=== PATIENT | female | born 1970 | race Caucasian/White ===

== ENCOUNTER 2017-08-28 21:20 | Emergency (ER) | payer MEDICARE, MEDICAID, SELFPAY ==
--- NOTE | 2017-08-28 21:20 | DT_ITS ---
This patient was seen during an EMR downtime August 24, 2017 - August 31, 2017. This patient may have a combination of paper and electronic documentation or all paper documentation. All documentation is viewable within the e-chart portion of [facility] for each patient visit.
--- NOTE | 2017-08-28 23:55 | RAD_ITS ---
STUDY: X-RAY - LUMBAR SPINE REASON FOR EXAM: Female, 46 years old. FELL 2 DAYS AGO C/O LBP T COCCYX PAIN TECHNIQUE: 4 view(s) of the lumbar spine were obtained. COMPARISON: None FINDINGS: There is straightening of the normal lumbar lordosis. There is a dextroscoliosis of the lumbar spine. There is a normal alignment of the vertebrae. There is multilevel endplate spondylosis of the lumbar vertebrae. There is multi-level degenerative disc disease with multi-level disc space narrowing. The soft tissue structures are unremarkable. RAD/Lumbar Spine 2 or 3 Views IMPRESSION: Degenerative changes of the spine, as detailed above. Electronically Signed: Brandin Green MD at 1:07 EDT Tel , Service support ,
--- NOTE | 2017-08-28 23:55 | RAD_ITS ---
STUDY: X-RAY - SACRUM/COCCYX REASON FOR EXAM: Female, 46 years old. FELL 2 DAYS AGO C/O LBP T COCCYX PAIN TECHNIQUE: 3 view(s) of the sacrum and coccyx were obtained. COMPARISON: None. FINDINGS: There is degenerative arthrosis of the bilateral sacroiliac joints. Normal visualized sacral ala and fused sacral bodies. There is an anterior angulation of the coccygeal segments. Normal coccygeal segments. The presacral soft tissue structures are unremarkable. RAD/Sacrum-Coccyx min 2 Views IMPRESSION: There is degenerative arthrosis of the bilateral sacroiliac joints. There is an anterior angulation of the coccygeal segments Electronically Signed: Brandin Green MD at 1:29 EDT Tel , Service support ,
== END 2017-08-29 02:00 | disposition home or self-care (01) ==
PROVIDERS: Emergency Provider Emergency Medicine; Family Provider Internal Medicine; PCP Internal Medicine
DX: S39.012A Strain of muscle, fascia and tendon of lower back, initial encounter (principal); W19.XXXA Unspecified fall, initial encounter; Y93.9 Activity, unspecified; Y92.838 Other recreation area as the place of occurrence of the external cause; E11.40 Type 2 diabetes mellitus with diabetic neuropathy, unspecified; M79.7 Fibromyalgia; Z79.84 Long term (current) use of oral hypoglycemic drugs; Z79.899 Other long term (current) drug therapy
CPT/HCPCS: 72100; 72220; 99282

== ENCOUNTER → 2017-09-02 12:45 | Outpatient (CLI) | payer MEDICARE, MEDICAID, SELFPAY ==
--- NOTE | 2017-09-02 13:40 | RAD_ITS ---
STUDY: X-RAY - SOFT TISSUE NECK REASON FOR EXAM: Female, 46 years old. Cough. Sleep apnea. TECHNIQUE: AP and lateral view(s) of the neck were obtained. COMPARISON: None. FINDINGS: The airway measures 8.4 mm from the posterior base of the tongue to the anterior prevertebral soft tissues at the C3 level. Normal epiglottis. Normal visualized subglottic tracheal air column. Normal prevertebral soft tissue structures. There are degenerative changes of the cervical spine with cervical spondylosis. The soft tissue structures are unremarkable. RAD/Neck for Soft Tissue IMPRESSION: The airway measures 8.4 mm from the posterior base of the tongue to the anterior prevertebral soft tissue at the C3 level. Electronically Signed: Jose Anderson MD at 12:31 EDT Tel [phone], Service support ,
== END ==
PROVIDERS: Family Provider Internal Medicine; PCP Internal Medicine; Visit Provider Otolaryngology Otolaryngology/Facial Plastic Surgery
DX: R05 Cough (principal); G47.33 Obstructive sleep apnea (adult) (pediatric)
CPT/HCPCS: 70360

== ENCOUNTER → 2017-10-09 08:42 | Outpatient (CLI) | payer MEDICARE, SELFPAY ==
--- NOTE | 2017-10-09 08:48 | RAD_ITS ---
STUDY: X-RAY - ESOPHAGUS (BARIUM SWALLOW) WITH FLUOROSCOPY REASON FOR EXAM: Female, 47 years old. Choking on food. TECHNIQUE: 12 view(s) of the esophagus were obtained following swallowing of barium. FLUOROSCOPY TIME (if supplied): (0:25) minutes/seconds COMPARISON: None. FINDINGS: There is no demonstrated esophageal foreign body. There is no demonstrated stricture or mucosal abnormality. Normal gastroesophageal junction, without a demonstrated hiatal hernia. The patient ingested a 12 mm tablet of barium without any difficulty. Normal visualized aortic arch and descending thoracic aorta. Normal visualized pulmonary parenchyma. Normal visualized osseous structures of the thorax. RAD/Esophagus Only IMPRESSION: Normal plain film x-ray examination (barium swallow) of the esophagus. Electronically Signed: Jose Anderson MD at 9:48 EDT Tel [phone], Service support ,
== END ==
LOC: RAD 08:43
PROVIDERS: Family Provider Internal Medicine; PCP Internal Medicine; Visit Provider Otolaryngology Otolaryngology/Facial Plastic Surgery
DX: R13.10 Dysphagia, unspecified (principal); K21.9 Gastro-esophageal reflux disease without esophagitis
CPT/HCPCS: 74220

== ENCOUNTER 2018-01-12 10:30 | Outpatient (RCR) | payer MEDICARE, MEDICAID, SELFPAY ==
--- NOTE | 2017-11-04 19:01 | HP.PTEVAL_ITS ---
Patient's Visit Information DESHAWN TELLO is a 47 year old F referred to Physical Therapy by PRIYANK HENNESSY with a diagnosis of gait instability d/t neuroapthy. Date of Evaluation: 11/04/17 Physical Therapist: Rowena Pedro - Visit Plan Frequency: 2x /Week Duration: 6 Weeks Plan: 2-3X/ week for 4-6 weeks for AT for core and hip strengthening and ankle strength with gait training, with HEP - Subjective Subjective: Pt has been having a lot of problems with her neuropathy. She has a cane for her balance. Sometimes she falls back into the chair. Pt has FM, DDD, neuropathy, back issues. The Dr wants her to get more exercise in and to learn from PT so that she can keep doing PT. She falls alot. This year about 3 -4 times and tries to always have her cane. She feels that it does help. Sometimes she gets dizzy if she stands up too fast or does not eat right. She does have sparatic vertigo but not had it for awhile. Stairs: Worst subject.... she goes up fw and down BW. SHe tends to lose her L shoe all the time as her neuropathy is almost up to her knee. - Pain general pain Pain Intensity (Out of 10): 7 neck and shoulder pain Pain Intensity (Out of 10): 7 - Objective Gait: walks with a straight cane and WBOS with forefoot abd B. LE MMT: Hip flex B 4/5, B knee ext 4/5, B knee flex 4-/5, B hip abd 3+/5, 3/4 Normal ROM bridge. Pt is able to heel and toe raise with UE support but decreased DF ROM. FGA: 16 - Balance Scores Functional Gait Assessment Score: 16 % Disability: 46.6700 - Goals Goal 1:: I HEP Goal Time Frame: 4-6 Weeks Goal 2:: Increase hip strength to 4+/5 hip abd, hip flex and 4/5 hip extension Goal Time Frame: 4-6 Weeks Goal 3:: Increase FGA by 4 points to 20 to decrease fall risk. Goal Time Frame: 4-6 Weeks Goal 4:: Be able to go up and down stairs with 2 handrails ascending and descending normally and reciprically Goal Time Frame: 4-6 Weeks - Rehabilitation Potential Rehabilitation Potential: Good - Anticipated Interventions Patient/Client Instruction: Educate patient on: Plan of Care For the Purpose of:: To decrease pain, To improve nutrient delivery to tissue, To improve muscle performance and motor function, To improve ability to perform ADL's, To increase tolerance to activity/condition/position, To improve performance and independence with ADL's, To decrease level of supervision to perform tasks, To improve ability of physical actions for home/community/work/ leisure, To improve gait and locomotor functions, To improve health of tissue, To increase flexibility/ROM, To improve balance, To improve safety with gait, To assume or resume ADL's Therapeutic Exercise to Include: Strength training, Balance training, Gait and locomotor training, In an aquatic setting, Active ROM, Dynamic Lumbar Stabilization For the Purpose of:: To decrease pain, To increase ROM, To improve nutrient delivery to tissue, To improve muscle performance and motor function, To improve ability to perform ADL's, To increase tolerance to activity/condition/ position, To improve performance and independence with ADL's, To improve ability of physical actions for home/community/work/leisure, To improve gait and locomotor functions, To improve balance, To improve safety with gait Functional Training to Include: Gait training For the Purpose of:: To improve gait and locomotor functions, To improve safety with gait Thank you for the opportunity to evaluate your patient. For Medicare and Medicare HMO plans, please review the plan of care and approve it. It will need to be FAXED BACK to us at [phone] for Medicare purposes. Please let me know if there are questions or concerns regarding this plan of care. Physician Signature: Date:
--- NOTE | 2017-12-16 10:36 | HP.PTREVAL ---
PRIYANK HENNESSY, It has been my pleasure to treat DESHAWN TELLO over the last 6 visits for gait instability d/t neuroapthy. Please see the progress note below for an update on the physical therapy plan of care! Subjective: Pt reports that she missed a lot of time due to menstration and toe nail coming off and family issues. At this point in time pt knows that she needs put PT ahead of everyone else and say no more to others because she is bad off. Objective/Function: LE MMT:Hip flex R 4-/5 and L hip flex 4/5, Knee ext 4/5B, Knee flex B 4/5, Hip abd B 4-/5, Bridge 3/5 normal ROM bridge. Able to heel and toe raise with 1/2 normal rom. Gait: Walk with shorter stride. Walks with [place] and walks with a straight cane and did catch the cane on the ground with walking. FGA: 16 Plan Plan: 2X/ week for an additional 4-6 weeks for AT for core and hip strengthening and ankle strength with gait training, with HEP Goals Goal 1:: I HEP Goal Time Frame: 4-6 Weeks Goal 2:: Increase hip strength to 4+/5 hip abd, hip flex and 4/5 hip extension Goal Time Frame: 4-6 Weeks Goal 3:: Increase FGA by 4 points to 20 to decrease fall risk. Goal Time Frame: 4-6 Weeks Goal 4:: Be able to go up and down stairs with 2 handrails ascending and descending normally and reciprically Goal Time Frame: 4-6 Weeks Anticipated Interventions Patient/Client Instruction: Educate patient on: Plan of Care For the Purpose of:: To decrease pain, To improve nutrient delivery to tissue, To improve muscle performance and motor function, To improve ability to perform ADL's, To increase tolerance to activity/condition/position, To improve performance and independence with ADL's, To decrease level of supervision to perform tasks, To improve ability of physical actions for home/community/work/leisure, To improve gait and locomotor functions, To improve health of tissue, To increase flexibility/ROM, To improve balance, To improve safety with gait, To assume or resume ADL's Therapeutic Exercise to Include: Strength training, Balance training, Gait and locomotor training, In an aquatic setting, Active ROM, Dynamic Lumbar Stabilization For the Purpose of:: To decrease pain, To increase ROM, To improve nutrient delivery to tissue, To improve muscle performance and motor function, To improve ability to perform ADL's, To increase tolerance to activity/condition/position, To improve performance and independence with ADL's, To improve ability of physical actions for home/community/work/leisure, To improve gait and locomotor functions, To improve balance, To improve safety with gait Functional Training to Include: Gait training For the Purpose of:: To improve gait and locomotor functions, To improve safety with gait Please do not hesitate to contact me at [phone] by phone or if you have questions or concerns regarding this new plan of care! Sincerely, Rowena Pedro
--- NOTE | 2018-03-31 17:38 | HP.PT.NRP ---
HP - Discharge Summary (1) - Patient Information DESHAWN TELLO was seen in my office for initial evaluation on 11/04/17. The following Plan of Care was established for this patient: Initial Frequency: 2x /Week Initial Duration: 6 Weeks - Anticipated Interventions Patient/Client Instruction: Educate patient on: Plan of Care For the Purpose of:: To decrease pain, To improve nutrient delivery to tissue, To improve muscle performance and motor function, To improve ability to perform ADL's, To increase tolerance to activity/condition/position, To improve performance and independence with ADL's, To decrease level of supervision to perform tasks, To improve ability of physical actions for home/community/work/leisure, To improve gait and locomotor functions, To improve health of tissue, To increase flexibility/ROM, To improve balance, To improve safety with gait, To assume or resume ADL's Therapeutic Exercise to Include: Strength training, Balance training, Gait and locomotor training, In an aquatic setting, Active ROM, Dynamic Lumbar Stabilization For the Purpose of:: To decrease pain, To increase ROM, To improve nutrient delivery to tissue, To improve muscle performance and motor function, To improve ability to perform ADL's, To increase tolerance to activity/condition/position, To improve performance and independence with ADL's, To improve ability of physical actions for home/community/work/leisure, To improve gait and locomotor functions, To improve balance, To improve safety with gait Functional Training to Include: Gait training For the Purpose of:: To improve gait and locomotor functions, To improve safety with gait This patient was last seen in our office 01/12/18. Pertinent comments regarding their Physical therapy will appear below: Pt did not re-schedule after he cancelled and no-showed for an appointment and will be discharged from our care at this time. DC PT. At this point I will be discontinuing this patient from physical therapy. I would be happy to see this patient again in the future if found appropriate by the physician. Thank you! Rowena Pedro, MPT
== END 2018-01-12 19:00 | disposition home or self-care (01) ==
LOC: PT 10:30
PROVIDERS: Family Provider Internal Medicine; PCP Internal Medicine
DX: R26.89 Other abnormalities of gait and mobility (principal)
CPT/HCPCS: 97014; 97113; 97162; 97530; G0283

== ENCOUNTER 2022-07-24 10:01 | Outpatient (RCR) | payer MEDICARE, MEDICAID, SELFPAY ==
[2022-07-24 10:48] VITALS: BP 146/99; PULSE 97; RESP 18; TEMP 36.4; BMI 39.4
--- NOTE | 2022-07-24 12:25 | PCM.WC.HP ---
History of Present Illness Date of Service: 07/24/22 Chief Complaint: Recurrent Left Toe Ulceration History of Wound: Ms. Guidry is a 51 yo referred to the wound center by her supervisor wet pour due to recurrent left toe ulcers. Current area of concern is her left second toe. Has had recurrent ulcerations for many years and has been seeing her supervisor wet pour closely. History of diabetic neuropathy, severe. Sometimes wears postop shoes but admits that she alternates 1 postop shoe between both feet. Recommendation by her supervisor wet pour was for surgery but, she states that she was not open to this. She feels well otherwise. [facility] Medical History (Updated 07/24/22 @ 12:[address] Cliff Nguyen MD) Callus of toe Foot deformity Neuropathy of both feet Home Medications duloxetine 60 mg capsule,delayed release 60 mg PO DAILY 01/10/15 [History Last Taken Unknown] calcium phosphate,dibasic 77 mg-vitamin D3 400 unit tablet tab PO 07/24/22 [History Last Taken Unknown] gabapentin 800 mg tablet 800 mg PO BID 07/24/22 [History Last Taken Unknown] ibuprofen 400 mg tablet 800 mg PO Q12H PRN PRN Headache 07/24/22 [History Last Taken Unknown] iron 50 mg iron tablet tab PO 07/24/22 [History Last Taken Unknown] magnesium 250 mg tablet 250 mg PO DAILY 07/24/22 [History Last Taken Unknown] metformin 500 mg tablet 1,000 mg PO BID 07/24/22 [History Last Taken Unknown] Allergy/AdvReac Type Severity Reaction Status Date / Time povidone-iodine Allergy Hives Verified 06/26/14 13:06 [From Betadine] soap [From Betadine] Allergy Hives Verified 06/26/14 13:06 Social History Smoking Status: Never smoker ROS Constitutional Constitutional: Denies fatigue, fever(s), frequent falls, increased appetite, lethargy or malaise Eyes Eyes: Denies change in eye color, change in vision, discharge from eye(s), double vision, dry eyes, excessive blinking or exophthalmos ENT HEENT: Denies dysphagia, ear discharge, ear pain, foreign body in nose, halitosis, hearing loss or hoarseness Cardiovascular Cardiovascular: Denies diaphoresis, dizziness, dyspnea at rest, dyspnea on exertion, edema or erythema on extremities Respiratory/Chest Respiratory/Chest: Denies difficulty clearing secretions, dry cough, dyspnea on exertion, excessive phlegm production, hemoptysis or hoarseness Gastrointestinal Gastrointestinal: Denies abdominal pain, belching, chewing difficulty, dry heaves, excessive flatus, vomiting or weight changes Genitourinary Genitourinary: Denies abdominal discomfort, difficulty urinating, flank pain or itching Musculoskeletal Musculoskeletal: Denies atrophy, extremity pain, loss of height or muscle weakness Integumentary Integumentary: Denies bleeding lesions, change in hair, changing lesions, furuncle, hirsutism, jaundice, non-healing lesions or skin pain Neurologic Neurologic: Denies behavior changes, burning sensations, disequilibrium, dizziness, focal weakness, frequent falls, lack of coordination, loss of vision or memory loss Psychiatric Psychiatric: Denies auditory hallucinations, behavioral changes, change in appetite, confusion, hallucinations, memory loss, paranoia, tactile hallucinations or visual hallucinations Endocrine Endocrinology: Denies change in body appearance, cold intolerance, deepening of the voice, excessive sweating, flushing or heat intolerance Allergic/Immunologic Allergic/Immunologic: Denies itchy eyes, lip swelling, rhinitis, throat swelling, tongue swelling or wheezing Vital Signs Vital Signs Vital Signs: 07/24/22 10:48 Temperature 97.5 F L Temperature Source Temporal Pulse Rate 97 Respiratory Rate 18 Blood Pressure 146/99 H Blood Pressure Mean 114 Blood Pressure Source Manual Blood Pressure Position Semi-Fowlers Blood Pressure Location Left Arm Weight Weight: 282 lb 12.465 oz Body Mass Index (BMI) 39.4 Physical Exam Const alert, oriented x3 and no apparent distress General Appearance: cooperative, comfortable and well kempt HEENT normocephalic and head/scalp atraumatic Head and Scalp: normal to inspection Eyes EOMs intact bilaterally General Eye: normal appearance of both eyes Neck full ROM and supple General: normal visual inspection Resp normal respiratory effort Effort and Inspection: able to speak in complete sentences Extremity full ROM and no pedal edema Neuro oriented x3, CN's II-XII intact bilaterally, moves all extremities and no focal motor deficits Psych mental status grossly normal, thought process normal, cooperative and affect normal Debridement Note Debridement Note Post-Debridement Measurements and Additional Note: Post-Debridement Measurements/Treatment CHAMP - Nurse 1 - General Ulcer Assessment Start: 07/24/22 10:40 Freq: Status: Active Protocol: WC.LOWEXT Activity Type Activity Date Activity User E-sign Co-sign Detail Recorded Client Recorded Date Recorded By Document 07/24/22 10:48 RB [id number] 07/24/22 10:57 RB 07/24/22 10:48 WC - Today's Visit Information Type of service Initial Visit Arrival Mode Ambulatory Transfer Assistance None Patient Identification Verified (Name & Yes ) Patient Requires Transmission-Based No Precautions Height and Weight Height 5 ft 11 in Weight 282 lb 12.465 oz Weight in Pounds 282.8 lbs Body Mass Index (BMI) 39.4 BMI Classification Obese BSA - Kev 2.44 Vital Signs Temperature (97.8 F-99.1 F) 97.5 F L Temperature Source Temporal Pulse Rate (60-100) 97 Pulse Location Monitor Respiratory Rate (12-18) 18 Respiratory rate source Observation Blood Pressure (90/60-120/80) 146/99 H Blood Pressure Mean 114 Source Manual Position Semi-Fowlers Blood Pressure Location Left Arm History Since Last Visit- (Skip if this is Patient's initial visit) Have you changed medications since your No last visit? Any new allergies or adverse reactions No Had a fall/change in ADL's that may No increase risk of falls Signs or symptoms of abuse and/or No neglect since last visit Have you been in the hospital since your No last visit? Has dressing in place as prescribed Yes Has compression in place as prescribed No Has offloadiing in place as prescribed No Experienced any changes in pain level or No management Pain Scale: 0-10 Numeric Is Patient Pain Free? No bilat feet -Description Aching -Intensity 8 -Duration (hours) Chronic -Pain Behavior Restlessness -Pain Aggravating Factors Exercise/ Activity -Alleviating Factors/Interventions Medication -Effectiveness of Alleviating Factor/ Minimally Intervention effective Lower Extremity Assessment/ Foot Assessment/ Toe Nail Assessment Right -Posterior Tibial Palpable Yes -Dorsalis Pedis Palpable Yes -Extremity Color Normal -Hair Growth on Legs Yes -Hair Growth on Toes No -Temperature of Extremity Cool -Capillary Refill Less than 3 Seconds -Dependent Rubor No -Blanched when Elevated No -Lipodermatosclerosis No -Charcot Joint Yes -Prior Amputation No -Thick Yes -Discolored Yes -Deformed Yes -Improper Length & Hygeine Yes Left -Posterior Tibial Palpable Yes -Dorsalis Pedis Palpable Yes -Extremity Color Normal -Hair Growth on Legs Yes -Hair Growth on Toes No -Temperature of Extremity Cool -Capillary Refill Less than 3 Seconds -Dependent Rubor No -Blanched when Elevated No -Lipodermatosclerosis No -Other Deformity No -Prior Foot Ulcer No -Charcot Joint Yes -Prior Amputation No -Thick Yes -Discolored Yes -Deformed Yes -Improper Length & Hygeine Yes Neuropathy Assessment Feet - Top Side and Bottom <Entered> (a) Communication Assessment Preferred language Vietnamese Auricular Acupuncturist Required No Able to Read Yes Able to Write Yes Communication Tools None Caregiver Communication Skills No Impairment Impairment Right Hearing Abillity Normal Left Hearing Abillity Normal Visual Assistive Devices Glasses Teaching Assessment Preferences Verbal,Written, Demonstration Readiness To Learn Good Willingness to Engage in Self Management Med Activies Readiness to Engage in Self Management Med Activities Anxiety Level Calm Cooperation Cooperative Perception Coherent Interest in Health Problem Asks Questions Education Importance Acknowledges Need Does Patient Smoke tobacco or other No substances Smoking Status Never smoker Functional Assessment Recent Decline in Ability to Perform Denies Any Declines Assistive Device With Patient No Culture/Rastafari/Child Development Consultant Cultural/Rastafari Needs that may affect No Treatment Plan Would you allow our hospital clerical methods analyst to No meet you for the purpose of spiritual/ emotional support? Child Development Consultant to contact place of mormon No (a) 1 - _ throughtout WC - Nurse 1 - General Ulcer Measurement Start: 07/24/22 10:40 Freq: Status: Active Protocol: Activity Type Activity Date Activity User E-sign Co-sign Detail Recorded Client Recorded Date Recorded By Document 07/24/22 10:48 [id number] 07/24/22 10:57 RB 07/24/22 10:48 Wound Center Nurse 1 4. L foot second toe -Combined with other wound No -Current Size (cm) - Length 0.1 -Current Size (cm) - Width 0.1 -Current Size (cm) - Depth 0.1 -Total Square Cm 0.01 -Photo Taken Yes -Tunneling No -Undermining/Tunneling No -Circular Undermining No -Exudate Amt None Present -Wound Margin Distinct, Outline Attached -Granulation Amt Small (1-33%) -Granulation Quality Starks -Slough/Fibrin Yes -Necrosis Amt Large (67-100%) -Necrotic Tissue Type Adherent Slough -Structure Exposed N/A -Texture (Jud-wound Skin Appearance) Callus -Moisture (Jud-wound Skin Appearance) Assessed -Color (Jud-wound Skin Appearance) Assessed -Temperature (Jud-wound Skin No Abnormality Appearance) (Pt Warm) -Tenderness on Palpation (Jud-wound No Skin Appearance) -Ulcer Cleansing Wound Cleanser -Foul Odor after Cleansing No -Anesthetic Used 5% Lidocaine Gel Lower Limb Edema Present Yes Right Calf (cm) 39 Right Ankle (cm) 24.5 Left Calf (cm) 39 Left Ankle (cm) 23.5 - Nurse 2 - General Ulcer CM Notes Start: 07/24/22 10:40 Freq: Status: Active Protocol: Activity Type Activity Date Activity User E-sign Co-sign Detail Recorded Client Recorded Date Recorded By Document 07/24/22 11:14 MW [id number] 07/24/22 11:25 MW 07/24/22 11:14 Wound Center Nurse 2 4. L foot second toe -Time 11:16 -Correct Patient Yes -Correct Side, Site, Position Yes -Correct Procedure Yes -Procedure Performed No Pain Scale: 0-10 Numeric Is Patient Pain Free? Yes - Nurse 3 - General Ulcer D/C NN Start: 07/24/22 10:40 Freq: Status: Active Protocol: Activity Type Activity Date Activity User E-sign Co-sign Detail Recorded Client Recorded Date Recorded By Document 07/24/22 11:26 MW [id number] 07/24/22 11:27 MW 07/24/22 11:26 Wound Care Center Nurse 3 4. L foot second toe -Other Covering aperture pad Treatment Response Procedure Tolerated Well Pain Scale: 0-10 Numeric Is Patient Pain Free? Yes Teaching: Wound Center Discharge Instructions -Person Taught Patient -Teaching Method Demonstration -Response to teaching Verbalize understanding WC - Visit Discharge Discharge Condition Stable Ambulatory Status Cane Accompanied by self Medication Reconcilliation completed & No provided to patient/care provider Clinical Summary of Care Provided Yes Notes: follow up with Dr. Cosme Charges/Coding Visit Charges Office Visits / Consults: [id number] OV L3 New Assessment/Plan Assessment/Plan (1) Neuropathy of both feet: CODE(S): G57.93 - Unspecified mononeuropathy of bilateral lower limbs (2) Foot deformity: CODE(S): M21.969 - Unspecified acquired deformity of unspecified lower leg (3) Callus of toe: CODE(S): L84 - Corns and callosities PLAN: Plan History of recurrent foot ulcerations. Has been following up closely with her supervisor wet pour. Current area of concern is her left second toe. Partial amputation was recommended however she declined. She states that she did not understand fully but on explanation today, she states that she is open to this measure. I believe this will be the most definitive to avoid recurrence. Repeated pressure due to foot and toe deformity and neuropathy will lead to recurrent ulcerations with risk for infection, osteomyelitis and possible foot amputation. At this time, there is no open wound/ulcer so she was advised to follow-up with her supervisor wet pour, she voiced understanding. In the meantime, an aperture foam was put in place to help with offloading, she was advised that she could do this daily as well. Continue other chronic care/management per podiatry. Discharge from the wound clinic. This note was generated with [employer] dictation software. It may contain incorrect words, spelling, and punctuation that were not noted in checking the note before signing.
== END 2022-08-20 23:59 | disposition home or self-care (01) ==
LOC: WC 10:01
PROVIDERS: PCP Internal Medicine; Referring Provider Podiatrist Foot & Ankle Surgery; Visit Provider Internal Medicine
DX: L97.529 Non-pressure chronic ulcer of other part of left foot with unspecified severity (principal); E11.40 Type 2 diabetes mellitus with diabetic neuropathy, unspecified; R60.0 Localized edema; M14.60 Charcot's joint, unspecified site; L84 Corns and callosities; M21.969 Unspecified acquired deformity of unspecified lower leg; G57.93 Unspecified mononeuropathy of bilateral lower limbs
CPT/HCPCS: 99203; G0463

== ENCOUNTER → 2023-04-14 | Outpatient (CLI) | payer MEDICARE, MEDICAID, SELFPAY ==
--- NOTE | 2023-04-14 11:37 | RAD_ITS ---
STUDY: X-RAY - LEFT SHOULDER REASON FOR EXAM: Female, 52 years old. Left shoulder pain following a recent fall. TECHNIQUE: 4 view(s) of the shoulder. COMPARISON: None. FINDINGS: There is mild degenerative arthrosis of the glenohumeral articulation. Normal acromioclavicular joint. Degenerative spurring along the undersurface of the acromion. Normal humeral head and visualized proximal humerus. The soft tissue structures are unremarkable. Normal visualized pulmonary apex. RAD/Shoulder min 2 Views IMPRESSION: Mild degree of osteoarthritis. Degenerative spur is seen along the undersurface of the acromium. Electronically Signed: Jose Anderson MD at 11:59 EST ,
== END | disposition home or self-care (01) ==
LOC: MTRAD 11:37
PROVIDERS: PCP Internal Medicine; Referring Provider Physician Assistant; Visit Provider Physician Assistant
DX: M25.512 Pain in left shoulder (principal)
CPT/HCPCS: 73030

== ENCOUNTER 2024-04-15 07:45 | Day surgery (SDC) | payer MEDICARE, MEDICAID, SELFPAY ==
--- NOTE | 2024-03-30 12:48 | PCM.HP.BLA ---
History and Physical Date of Admission: 04/15/24 HPI: The patient is a 53 year old female presenting for pre-operative visit. She is scheduled for TLH, BSO, cystoscopy, for menorrhagia, dysmenorrhea, adenomyosis on 04/15/24. Procedure discussed along with risks, benefits and complications. Other alternatives discussed for management. Consent form signed? Yes. PAST MEDICAL HISTORY PAST MEDICAL HISTORY Diagnosis Date ? 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 Palencia will check MRA in 2012 ? Anxiety and depression ? Benign paroxysmal positional vertigo not an issue since 2006 ? Cataract ? Chronic cholecystitis 2007 ? Diabetes ([facility]) 2009 ? Dizziness and giddiness ? Elevated AST (SGOT) 10/16/2011 ? Esophageal reflux ? Excessive or frequent menstruation 06/19/2008 ? Family history of cardiac disorder in mother 12/23/2013 ? Fibromyalgia ? Hallux valgus (acquired) 01/12/2006 ? Hx-TIA (transient ischemic attack) January 2012 [place] ? Insomnia ? Mixed hyperlipidemia 03/19/2006 Resolved ? Morbid obesity with BMI of 40.0-44.9, adult ([facility]) 09/12/2014 ? Myalgia and myositis, unspecified ? Neuropathy Dr. Schmidt managing ? WILTON (obstructive sleep apnea) non compliant with CPAP ? Other enthesopathy of ankle and tarsus 01/12/2006 ? Other osteoporosis ? Restless leg syndrome 08/16/2015 Dr. Schmidt managing ? Retinal detachment 08/17/2015 ? Stage 3 chronic kidney disease ([facility]) 07/15/2022 ? Ulnar neuropathy of right upper extremity PAST SURGICAL HISTORY PAST SURGICAL HISTORY Procedure Laterality Date ? CATARACT EXTRACTION HX Right 05/2015 ? COLONOSCOPY 09/15/2022 ? COLONOSCOPY FLX DX W/COLLJ SPEC WHEN PFRMD 08/22/2015 Colonoscopy ([facility]) ? COLONOSCOPY SCREENING 2021 ? EGD 09/15/2022 ? EGD W/O [facility] SPEC VARICIES INJ 2021 ? ENDOMETRIAL BX W/WO ENDOCERVIX BX W/O DILAT SPX 06/01/2008 Irregular Menses, Menorrhagia and Thickened Lining ? ESOPHAGOGASTRODUODENOSCOPY TRANSORAL DIAGNOSTIC 08/22/2015 EGD ([facility]) ? INCISE FINGER TENDON SHEATH Right 07/09/2023 right middle and ring trigger release. ? INCISE FINGER TENDON SHEATH Right 07/09/2023 Right middle and ring trigger finger releases ? LAPAROSCOPY SURG CHOLECYSTECTOMY 08/19/2007 ? LIGATE FALLOPIAN TUBE at last csection ? NEUROPLASTY &/TRANSPOSITION ULNAR NERVE ELBOW Right 11/27/2023 Right elbow ulnar nerve decompression ? PAST SURGICAL HISTORY OF x 4 ? PAST SURGICAL HISTORY OF 2022 foot surgery, multiple bilat ? PAST SURGICAL HISTORY OF bilateral ankle fractures ? PAST SURGICAL HISTORY OF 06/30/2014 right 2nd toe arthroplasty with tenotomies 3rd, 4th, and 5th toe - [facility]- Dr. Conteh ? PAST SURGICAL HISTORY OF Right 04/2015 retinal tear ? PAST SURGICAL HISTORY OF Right right knee surgery ? TONSILLECTOMY & ADENOIDECTOMY <AGE 11 1975 CURRENT MEDICATIONS Current Outpatient Medications Medication Sig Dispense Refill ? ferrous sulfate (IRON ORAL) Take 300 mg by mouth. ? MULTIVITAMIN ORAL Take by mouth. ? doxycycline hyclate (VIBRAMYCIN) 100 mg capsule Take 1 capsule by mouth every 12 hours. ? fluticasone (FLONASE) 50 mcg/actuation nasal spray instill 2 spray into each nostril once daily Rinse mouth after use 48 mL 2 ? tiZANidine HCl (ZANAFLEX) 2 mg capsule Take 2 capsules by mouth every 8 hours as needed. 120 capsule 5 ? gabapentin (NEURONTIN) 800 mg tablet Take 1 tablet by mouth three times a day for 90 days. 90 tablet 2 ? sertraline (ZOLOFT) 50 mg tablet Take 1 tablet by mouth once daily. 90 tablet 3 ? cholecalciferol, Vitamin D3, (VITAMIN D3) 1,250 mcg (50,000 unit) cap capsule Take 1 capsule by mouth one time a week. 12 capsule 3 ? semaglutide (OZEMPIC) 2 mg/dose (8 mg/3 mL) pen injector Inject 2 mg subcutaneously one time a week. 4 Each 1 ? meloxicam (MOBIC) 15 mg tablet Take 1 tablet by mouth once daily. With food. 30 tablet 5 ? rosuvastatin (CRESTOR) 5 mg tablet Take 1 tablet by mouth once daily. 30 tablet 5 ? omeprazole (PRILOSEC) 40 mg capsule Take 1 capsule by mouth once daily. 30 capsule 5 ? Lancing Device (LANCING DEVICE WITH LANCETS) [facility] Check blood sugar once daily 1 Each 0 ? Lancets lancets Test blood sugar(s) once daily. Dx: E11.9. New onset type 2 diabetes Insulin: No 100 Each 11 No current facility-administered medications for this visit. ALLERGIES: Sulfa (Sulfonamide Antibiotics) PERSONAL HISTORY: SOCIAL HISTORY Social History Tobacco Use ? Smoking status: Never ? Smokeless tobacco: Never Vaping Use ? Vaping status: Never Used Substance Use Topics ? Alcohol use: Not Currently ? Drug use: No FAMILY HISTORY: FAMILY HISTORY FAMILY HISTORY Problem Relation Age of Onset ? Heart Mother ? other (fibroids) Mother ? Heart Father ? Arthritis Father ? Colon Cancer Father diagnosed at 74yo; has colostomy ? Alzheimer's Disease Father ? Psychiatry Maternal Grandmother Suicide ? Cancer Paternal Grandmother Breast ? Cancer Paternal Aunt Brain ? Cancer Paternal Aunt Uterine cancer REVIEW OF SYMPTOMS: GENERAL: denies fevers or chills ENDOCRINOLOGY: has not been on steroids Cardiology : denies palpitations or chest pain Respiratory: denies SOB or cough Hematology: denies history of prolonged bleeding or easy bruising or VTE Allergy: Denies history of personal or family history of allergy to anesthesia PHYSICAL EXAMINATION: VITALS: Blood pressure 108/68, weight 112.9 kg (249 lb), last menstrual period 03/11/2024. GENERAL: The patient is well nourished, well hydrated in no acute distress. , The patient is oriented to time, place, and person. NECK: Supple. No lynphadenopathy, normal thyroid, no thyromegaly. LUNGS: Clear to auscultation bilaterally. no wheezes, rhonchi or rales HEART: Regular rate and rhythm, Normal heart sounds, and No murmurs or gallops GENITALIA: Normal external genitalia, Urethral meatus normal, Bladder nontender, normal vagina and normal vaginal tone, normal cervix, normal uterus, size and consistency, normal adnexa without masses or tenderness, and perineum WNL IMPRESSION: menorrhagia with irreg cycle, adenomyosis, dysmenorrhea PLAN: The risks/benefits/alternatives and personal involved for the planned TLH/BSO with cystoscopy were reviewed with the patient. Her questions were answered to her satisfaction and she desires to proceed. Consent was signed. I reviewed with her postop instructions and expectations. Will need preop optimization w/ PCP stop ozempic 1 week preop I have reviewed and updated past medical and surgical history, medications and allergies Assessment & Plan Assessment/Plan (1) Menorrhagia with irregular cycle: (2) Adenomyosis: (3) Dysmenorrhea:
--- NOTE | 2024-04-07 12:00 | PAT.ANE_ITS ---
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 When Was Last Pacemaker Check QUESTION #4 FULL TEXT: You/Your Family Experience fever (hyperthermia) with Anesthesia Last Oral Intake Last Oral intake: Last Oral Intake NPO since Meds taken in AM with sips of water? 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 Female Yes 04/06/24 14:56 HX of Motion Sickness No 04/06/24 14:56 HX of N/V After Surgery No 04/06/24 14:56 Non-Smoker Yes 04/06/24 14:56 Duration of Surgery greater Yes 04/06/24 14:56 than 60 minutes Number of Risk Factors 3 04/06/24 14:56 PONV Score Moderate Risk 04/06/24 14:56 Height & Weight Height & Weight: Anesthesia: Height & Weight Height 5 ft 10 in 02/25/24 10:49 Respiratory Assessment Respiratory Assessment - ore crushing dust collector: Respiratory Tract Infection Hx - 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 Has anyone observed you stop breathing during sleep? STOP Results Positive 04/06/24 14:56 QUESTION #5 FULL TEXT : Do you snore loudly (louder than talking or can be heard through closed doors)? 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 Specify any problems Hx of Preganancy in last 3 No 04/06/24 14:56 Months Nurse Filling Out Transfusion DSCHRIBER 04/06/24 14:56 & Questions: Date: 04/06/24 04/06/24 14:56 Time: 14:57 04/06/24 14:56 Patient unable to answer at this time (ie. 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 crushing dust collector: /Reproductive Hx- ore crushing dust collector Hx Now No 04/06/24 14:56 Gestational Age (in weeks): EDC: Hx Hx Para Hx Section SAB No 04/06/24 14:56 [facility] Medical History (Updated 04/06/24 @ 15:24 by Serenity Santiago) Wears glasses Depression Anxiety Diabetes Bladder disease Arthritis Low iron High cholesterol Easy bruising Back pain TIA (transient ischemic attack) Vertigo Restless legs Dietary restriction History of IBS Gastric reflux Shortness of breath on exertion CPAP (continuous positive airway pressure) dependence Non-smoker Leg cramps History of pain when walking History of stress test Contusion of left shoulder Left shoulder strain Callus of toe Foot deformity Neuropathy of both feet Home Medications ?Medication ?Instructions ?Recorded ?Last Taken ?Type duloxetine 60 mg capsule,delayed 120 mg PO DAILY 01/10/15 Unknown History release gabapentin 800 mg tablet 800 mg PO TID NEUROPATHY 07/24/22 Unknown History iron 50 mg iron tablet 1 tab PO DAILY 07/24/22 Unknown History magnesium 250 mg tablet 250 mg PO DAILY 07/24/22 Unknown History calcium 500 mg (as 1 tab PO DAILY 04/06/24 Unknown History carbonate)-vitamin D3 3.125 mcg (125 unit) tablet fluticasone propionate 50 2 spray intranasal DAILY 04/06/24 Unknown History mcg/actuation nasal spray,suspension omeprazole 40 mg capsule,delayed 40 mg PO DAILY 04/06/24 Unknown History release semaglutide 2 mg/dose (8 mg/3 mL) 2 mg subcut CERDA 04/06/24 03/27/24 History subcutaneous pen injector (Ozempic) Allergy/AdvReac Type Severity Reaction Status Date / Time Sulfa (Sulfonamide Allergy Severe Hives Verified 04/06/24 14:51 Antibiotics) Surgical History (Updated 04/06/24 @ 15:05 by Serenity Santiago) History of esophagogastroduodenoscopy (EGD) Hx of colonoscopy Hx laparoscopic cholecystectomy History of Hx of toe surgery Hx of foot surgery Hx of toe surgery Hx of sinus surgery Hx of elbow surgery Social History Smoking Status: Never smoker Audit: Pertinent Findings Pertinent Findings Consult pertinent findings: Neuro care neurology visit 02/11/2012 history of TIA 02/04/2012 left-sided weakness stroke workup negative but found to have 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
--- NOTE | 2024-04-12 13:33 | EKG12_ITS ---
Test Reason : PREOP Blood Pressure : */* mmHG Vent. Rate : 71 BPM Atrial Rate : 71 BPM P-R Int : 120 ms QRS Dur : 72 ms QT Int : 414 ms P-R-T Axes : 4 37 38 degrees QTcB Int : 449 ms Normal sinus rhythm Low voltage QRS Borderline ECG When compared with ECG of 28-Dec-2013 06:56, No significant change was found Confirmed by SOM DAVIS, ANTONIO ([id number]), editor department CASIE MART ([id number]) on 04/18/2024 2:15:00 PM Referred By: Yanni Malone Confirmed By: ANTONIO KEARNS MD
--- NOTE | 2024-04-14 11:01 | PAT.ANE_ITS ---
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 When Was Last Pacemaker Check QUESTION #4 FULL TEXT: You/Your Family Experience fever (hyperthermia) with Anesthesia Last Oral Intake Last Oral intake: Last Oral Intake NPO since Meds taken in AM with sips of water? 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 Has anyone observed you stop breathing during sleep? STOP Results Positive 04/06/24 14:56 QUESTION #5 FULL TEXT : Do you snore loudly (louder than talking or can be heard through closed doors)? 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 Specify any problems Hx of Preganancy in last 3 No 04/06/24 14:56 Months Nurse Filling Out Transfusion DSCHRIBER 04/06/24 14:56 & Questions: Date: 04/06/24 04/06/24 14:56 Time: 14:57 04/06/24 14:56 Patient unable to answer at this time (ie. 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: /Reproductive Hx- sheet metal worker apprentice Hx Now No 04/06/24 14:56 Gestational Age (in weeks): EDC: Hx Hx Para Hx Section SAB No 04/06/24 14:56 Active Medications Active Medications: Current Medications Generic Name Dose Route Start Last Admin Trade Name Freq PRN Reason Stop Dose Admin Acetaminophen 1,000 mg 04/15/24 10:15 Acetaminophen 500 Mg Tablet PO 04/15/24 10:16 PREOP ONE Celecoxib 400 mg 04/15/24 10:15 Celecoxib 200 Mg Capsule PO 04/15/24 10:16 X1 ONE Enoxaparin Sodium 40 mg 04/15/24 10:15 Enoxaparin 40 Mg/0.4 Ml Syringe SC 04/15/24 10:16 X1 ONE Gabapentin 600 mg 04/15/24 10:15 Gabapentin 600 Mg Tablet PO 04/15/24 10:16 PREOP ONE Lactated Ringer's 1,000 mls @ 40 mls/hr 04/15/24 10:15 IV .Q25H LOVE Cefazolin Sodium 2 gm/ N/A 20 mls @ 400 mls/hr 04/15/24 10:15 IV 04/15/24 10:17 PREOP ONE Lactated Ringer's 1,000 mls @ 70 mls/hr 04/15/24 10:15 IV .[id number] [facility] Insulin Human Lispro 0 unit 04/15/24 10:15 Insulin Lispro 100 Unit/Ml Insuln.Pen SC 04/15/24 16:00 Q4H PRN PRN BG >/= 180, SEE PROTOCOL Protocol Ondansetron HCl 4 mg 04/15/24 10:15 Ondansetron 4 Mg/2 Ml Vial IV 04/15/24 10:16 X1 ONE Phenazopyridine HCl 190 mg 04/15/24 10:15 Phenazopyridine 95 Mg Tablet PO 04/15/24 10:16 X1 ONE Scopolamine HBr 1 patch 04/15/24 10:15 Scopolamine 1mg/72hr Patch TD 04/15/24 10:16 X1 ONE PFS Medical History (Updated 04/06/24 @ 15:24 by Serenity Santiago) Wears glasses Depression Anxiety Diabetes Bladder disease Arthritis Low iron High cholesterol Easy bruising Back pain TIA (transient ischemic attack) Vertigo Restless legs Dietary restriction History of IBS Gastric reflux Shortness of breath on exertion CPAP (continuous positive airway pressure) dependence Non-smoker Leg cramps History of pain when walking History of stress test Contusion of left shoulder Left shoulder strain Callus of toe Foot deformity Neuropathy of both feet Home Medications ?Medication ?Instructions ?Recorded ?Last Taken ?Type duloxetine 60 mg capsule,delayed 120 mg PO DAILY 01/10/15 Unknown History release gabapentin 800 mg tablet 800 mg PO TID NEUROPATHY 07/24/22 Unknown History iron 50 mg iron tablet 1 tab PO DAILY 07/24/22 Unknown History magnesium 250 mg tablet 250 mg PO DAILY 07/24/22 Unknown History calcium 500 mg (as 1 tab PO DAILY 04/06/24 Unknown History carbonate)-vitamin D3 3.125 mcg (125 unit) tablet fluticasone propionate 50 2 spray intranasal DAILY 04/06/24 Unknown History mcg/actuation nasal spray,suspension omeprazole 40 mg capsule,delayed 40 mg PO DAILY 04/06/24 Unknown History release semaglutide 2 mg/dose (8 mg/3 mL) 2 mg subcut CERDA 04/06/24 03/27/24 History subcutaneous pen injector (Ozempic) Allergy/AdvReac Type Severity Reaction Status Date / Time Sulfa (Sulfonamide Allergy Severe Hives Verified 04/06/24 14:51 Antibiotics) Surgical History (Updated 04/06/24 @ 15:05 by Serenity [email or web address]) History of esophagogastroduodenoscopy (EGD) Hx of colonoscopy Hx laparoscopic cholecystectomy History of Hx of toe surgery Hx of foot surgery Hx of toe surgery Hx of sinus surgery Hx of elbow surgery Social History Smoking Status: Never smoker Audit: Pertinent Findings HISTORY of Pertinent Findings History of Pertinent Findings: Consult Pertinent Findings Consult pertinent findings Neuro care neurology visit 04/07/24 12:02 02/11/2012 history of TIA left-sided weakness stroke workup negative but found to have 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 Normal sinus rhythm. Compared to EKG of December 28, 2013 no significant change was found. Recommendation Anesthesia Recommendation Anesthesia recommendation: OPTIMIZED for anesthesia
[2024-04-15] VITALS (14 sets, daily range): BP systolic 129–168; BP diastolic 85–102; PULSE 65–81; RESP 14–16; TEMP 36.1–36.4; O2SAT 92–99; BMI 36.3
--- NOTE | 2024-04-15 | HYST_PTH ---
PATIENT: DESHAWN TELLO LOC: [facility] [place] U#:[id number] AGE/SX: 53/F ROOM: RE04/15/[address]: Dr. Yanni Malone MD : [id number] BED: DIS: 04/15/2024 SPEC #: [id number] RECD: 04/15/24 13:49 STATUS: HEATH PEGUERO #: [id number] GENARO: 04/15/24 00:[address]: Yanni Malone DEPT: SURGICAL PATHOLOGY RECD BY: Diomedes Cao ENTERED: 04/15/24 13:49 SP TYPE: HYSTERECT OTHR DR: Dr. Flora Thrasher MD Tissues: Uterus, NOS Procedures: Surgery Specimen Level V HEADER OPERATION: Total laparoscopic hysterectomy with bilateral salpingectomy PRE-OP DIAGNOSIS: Menorrhagia with irregular cycle, adenomyosis, dysmenorrhea TISSUE SUBMITTED: Uterus, cervix, bilateral fallopian tubes MICROSCOPIC DIAGNOSIS Uterus, cervix, bilateral fallopian tubes, hysterectomy, bilateral salpingectomy: Cervix - Chronic inflammation and squamous metaplasia. Endometrium - Proliferative endometrium. Myometrium - Intramural leiomyomas (largest measuring 1cm in greatest dimension). - Diffuse adenomyosis. Bilateral fallopian tubes- No pathologic diagnosis. A paratubal cyst. 04/18/2024 MICROSCOPIC DESCRIPTION Slides are reviewed. GROSS DESCRIPTION Received in fixative is one container labeled with the patient's name and designated uterus, cervix, bilateral fallopian tubes. The specimen consists of a hysterectomy specimen consisting of uterus with cervix and dethatched bilateral fallopian tubes. The uterus with cervix weighs 169 gm and measures 12 x 8 x 5 cm. The serosal surface is wood glistening. The ectocervical mucosa is unremarkable. The external os is circular in contour. The endocervical canal measures 3.5 cm in length and the endocervical mucosa is wood glistening and unremarkable. The triangular endometrial cavity measures 6 cm in length and 4 cm in width. The endometrium is wood glistening without any mass lesions and measures 0.1 cm in thickness. Sections of the uterine wall reveal three nodular masses. Largest mass measures 1cm in greatest dimension. Uterine wall measures 3cm in thickness. Focal areas of punctate hemorrhage are also noted suspicious for adenomyosis. Fallopian tubes are not identified as right or left. One fallopian tube measures 4.5cm in length and 0.5cm in diameter. Fimbrial end is identified. Sections reveal unremarkable cut surfaces. Second fallopian tube measures 2.5cm in length and 0.5cm in diameter. Fimbrial end is identified. A paratubal cyst is also noted adjacent to the fallopian tube measuring 0.5cm in greatest dimension. A detached piece of fallopian tube is also present in the container measuring 1.5cm in length and 0.3cm in diameter. Sections reveal unremarkable cut surfaces. Social Media Analyst sections are submitted in ten cassettes as follows: 1 - anterior cervix, 2 - posterior cervix, 3 & 4 - anterior uterine wall, 5 & 6 - posterior uterine wall, 7- nodular masses, 8- one fallopian tube, 9- second fallopian tube and paratubal cyst, submitted in entirety, 10- detached piece of fallopian tube. SJ: 04/15/2024 TC:1 CPT: 83304
[2024-04-15 08:10] LABS: Internal QC Validated? YES +Cl - CLEAR BKGD; Pregnancy, Urine Negative Negative
[2024-04-15] MEDS: Magnesium 2 GM for ERAS IV (08:15)
[2024-04-15] MEDS: Phenazopyridine 95 MG Tablet 190 MG PO (08:46)
[2024-04-15] MEDS: Enoxaparin 40 MG/0.4 ML Syringe SC (08:47)
[2024-04-15] MEDS: Celecoxib 200 MG Capsule 400 MG PO (08:47)
[2024-04-15] MEDS: Lactated Ringers 1,000 ML 40 ML IV (08:47)
[2024-04-15] MEDS: Gabapentin 600 MG Tablet PO (08:47)
[2024-04-15] MEDS: Scopolamine 1mg/72hr Patch 1 PATCH TD (08:48)
[2024-04-15] MEDS: Acetaminophen 500 MG Tablet 1000 MG PO (08:48)
--- NOTE | 2024-04-15 08:52 | PRE.ANES_ITS ---
ASA Classification* ASA Classification ASA Classification: 3 Assessment & Plan Anesthesia* Anesthesia Assessment Anesthesia Assessment: Discussed sedation and/or anesthesia options, risks, benefits, and alternatives with patient/parents/legal guardian/POA. Questions invited. The patient/parents/legal guardian/POA seems to understand and agrees to proceed with anesthesia plan. Reviewed the physical assessment, medical history, allergy history and patient home medications list prior to surgery/procedure/anesthetic and documented any changes. Performed airway and anesthesia risk assessments. Anesthesia Type Anesthesia Type: General History Source History Obtained from:: Patient and Chart Anesthesia Focused Assessment* Temperature: 97.5 F Pulse Rate: 75 Blood Pressure: 129/86 Respiratory Rate: 14 Pulse Ox: 99 Oxygen Delivery Method: Room Air Airway Assessment Mouth opens: >3 cm Mallampati Score: II Teeth Condition: Dentures (Edentulous) Neck Range of motion (ROM): Full ROM Focused Labs Anesthesia Preop lab: CBC WBC 8.9 K/mm3 (4.4-11.0) 12/22/13 13:51 RBC 4.89 M/mm3 (4.2-5.4) 12/22/13 13:51 Hgb 14.3 g/dl (12.0-15.0) 12/22/13 13:51 Hct 43.9 % (37-47) 12/22/13 13:51 Plt Count 379 K/mm3 (150-450) 12/22/13 13:51 CHEMISTRY Potassium 5.1 mmol/L (3.5-5.1) 12/28/13 07:25 Sodium 137 mmol/L (136-145) 12/28/13 07:25 BUN 11 mg/dL (7-18) 12/28/13 07:25 Creatinine 0.7 mg/dL (0.6-1.0) 12/28/13 07:25 Glucose 105 mg/dL (70-110) 12/28/13 07:25 COAG PT Pending 04/15/24 08:10 Urine Test Negative Negative 04/15/24 08:00 Pre-Assessment Diagnosis/Proposed Procedure Planned Operative Procedure(s): TOTAL LAP HYSTERECTOY WITH BILAT SALPINOOPHERECTOMY AND CYSTO Anesthesia History Anesthesia History - insurance processor: Anesthesia History - insurance processor Hx Hospitalization No 04/06/24 14:56 Any Problems With Anesthesia No 04/06/24 14:56 Cholinesterase deficiency No 04/06/24 14:56 You/Your Family Experience No 04/06/24 14:56 fever (hyperthermia) with Relationship Recent Exposure to Contagious No 04/15/24 08:11 Disease Does patient have nerve No 04/06/24 14:56 stimulator Patient instructed to have device shut off --Does patient have Pacemaker No 04/15/24 08:11 or ICD? When Was Last Pacemaker Check QUESTION #4 FULL TEXT: You/Your Family Experience fever (hyperthermia) with Anesthesia Last Oral Intake Last Oral intake: Last Oral Intake NPO since 23:30 04/15/24 08:11 Meds taken in AM with sips of Yes 04/15/24 08:11 water? 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 - insurance processor: PONV - insurance processor Female Yes 04/06/24 14:56 HX of Motion Sickness No 04/06/24 14:56 HX of N/V After Surgery No 04/06/24 14:56 Non-Smoker Yes 04/06/24 14:56 Duration of Surgery greater Yes 04/06/24 14:56 than 60 minutes Number of Risk Factors 3 04/06/24 14:56 PONV Score Moderate Risk 04/06/24 14:56 Height & Weight Height & Weight: Anesthesia: Height & Weight Height 5 ft 10 in 04/15/24 08:11 Weight: 115 kg 04/15/24 08:11 Body Mass Index (BMI) 36.3 04/15/24 08:11 Respiratory Assessment Respiratory Assessment - insurance processor: Respiratory Tract Infection Hx - insurance processor Hx Respiratory Tract Infection No 04/06/24 14:56 STOP Sleep Apnea STOP Sleep Apnea - insurance processor: STOP Sleep Apnea - insurance processor Hx Hypertension No 04/06/24 14:56 Hx Sleep Apnea Yes 04/06/24 14:56 CPAP Yes: NONCOMPLIANT 04/06/24 14:56 BIPAP No 04/06/24 14:56 Do you snore loudly (louder than talking or can be heard Do you often feel tired/ fatigued/ sleepy during daytime? Has anyone observed you stop breathing during sleep? STOP Results Positive 04/06/24 14:56 QUESTION #5 FULL TEXT : Do you snore loudly (louder than talking or can be heard through closed doors)? Tobacco Use History Tobacco Use History - insurance processor: Tobacco Use History - insurance processor Tobacco Use Smoking Status Never smoker 04/06/24 14:56 Hx Tobacco Use No 04/06/24 14:56 Years Smoking Packs Smoked per Day Smoking Cessation Date was within the last 15 years Hx Smoking Cessation Date Hx Smoking Cessation Counseling Hematologic Medial History Hematologic Hx - insurance processor: Hematologic Medical Hx - icu tech Hx of Blood Transfusion No 04/06/24 14:56 Hx of Transfusion in last 3 No 04/06/24 14:56 Months Date of Last Transfusion (if within last 3 months) Ever experience any problems No 04/06/24 14:56 with transfusion(s)? Specify any problems Hx of Preganancy in last 3 No 04/06/24 14:56 Months Nurse Filling Out Transfusion DSCHRIBER 04/06/24 14:56 & Questions: Date: 04/06/24 04/06/24 14:56 Time: 14:57 04/06/24 14:56 Patient unable to answer at this time (ie. confused, unrespo /Reproduction History /Reproductive History - insurance processor: /Reproductive Hx- insurance processor Hx Now No 04/06/24 14:56 Gestational Age (in weeks): EDC: Hx Hx Para Hx Section SAB No 04/06/24 14:56 Active Medications Active Medications: Current Medications Generic Name Dose Route Start Last Admin Trade Name Freq PRN Reason Stop Dose Admin Acetaminophen 1,000 mg 04/15/24 10:15 04/15/24 08:48 Acetaminophen 500 Mg Tablet PO 04/15/24 10:16 1,000 mg PREOP ONE Administration Celecoxib 400 mg 04/15/24 10:15 04/15/24 08:47 Celecoxib 200 Mg Capsule PO 04/15/24 10:16 400 mg X1 ONE Administration Enoxaparin Sodium 40 mg 04/15/24 10:04/15/24 08:47 Enoxaparin 40 Mg/0.4 Ml Syringe SC 04/15/24 10:16 40 mg X1 ONE Administration Gabapentin 600 mg 04/15/24 10:15 04/15/24 08:47 Gabapentin 600 Mg Tablet PO 04/15/24 10:16 600 mg PREOP ONE Administration Lactated Ringer's 1,000 mls @ 40 mls/hr 04/15/24 10:15 04/15/24 08:47 IV 40 mls/hr .Q25H LOVE Administration Cefazolin Sodium 2 gm/ N/A 20 mls @ 400 mls/hr 04/15/24 10:15 IV 04/15/24 10:17 PREOP ONE Lactated Ringer's 1,000 mls @ 70 mls/hr 04/15/24 10:15 IV .[id number] LOVE Insulin Human Lispro 0 unit 04/15/24 10:15 Insulin Lispro 100 Unit/Ml Insuln.Pen SC 04/15/24 16:00 Q4H PRN PRN BG >/= 180, SEE PROTOCOL Protocol Ondansetron HCl 4 mg 04/15/24 10:15 Ondansetron 4 Mg/2 Ml Vial IV 04/15/24 10:16 X1 ONE Phenazopyridine HCl 190 mg 04/15/24 10:15 04/15/24 08:46 Phenazopyridine 95 Mg Tablet PO 04/15/24 10:16 190 mg X1 ONE Administration Scopolamine HBr 1 patch 04/15/24 10:15 04/15/24 08:48 Scopolamine 1mg/72hr Patch TD 04/15/24 10:16 1 patch X1 ONE Administration PFSH Medical History Wears glasses Depression Anxiety Diabetes Bladder disease Arthritis Low iron High cholesterol Easy bruising Back pain TIA (transient ischemic attack) Vertigo Restless legs Dietary restriction History of IBS Gastric reflux Shortness of breath on exertion CPAP (continuous positive airway pressure) dependence Non-smoker Leg cramps History of pain when walking History of stress test Contusion of left shoulder Left shoulder strain Callus of toe Foot deformity Neuropathy of both feet Home Medications ?Medication ?Instructions ?Recorded ?Last Taken ?Type duloxetine 60 mg capsule,delayed 120 mg PO DAILY 01/10/15 04/15/24 06:30 History release gabapentin 800 mg tablet 800 mg PO TID NEUROPATHY 07/24/22 Unknown History iron 50 mg iron tablet 1 tab PO DAILY 07/24/22 Unknown History magnesium 250 mg tablet 250 mg PO DAILY 07/24/22 Unknown History calcium 500 mg (as 1 tab PO DAILY 04/06/24 Unknown History carbonate)-vitamin D3 3.125 mcg (125 unit) tablet fluticasone propionate 50 2 spray intranasal DAILY 04/06/24 Unknown History mcg/actuation nasal spray,suspension omeprazole 40 mg capsule,delayed 40 mg PO DAILY 04/06/24 Unknown History release semaglutide 2 mg/dose (8 mg/3 mL) 2 mg subcut CERDA 04/06/24 03/27/24 History subcutaneous pen injector (Ozempic) Allergy/AdvReac Type Severity Reaction Status Date / Time Sulfa (Sulfonamide Allergy Severe Hives Verified 04/15/24 08:09 Antibiotics) Surgical History History of esophagogastroduodenoscopy (EGD) Hx of colonoscopy Hx laparoscopic cholecystectomy History of Hx of toe surgery Hx of foot surgery Hx of toe surgery Hx of sinus surgery Hx of elbow surgery Social History Smoking Status: Never smoker Review of Systems (Anesthesia) ROS Narrative System reviewed and no additional complaints, except as documented. Physical Exam Const alert Orientation / Consciousness: awake
[2024-04-15 08:58] LABS: Partial Thromboplast Time 26.4 Seconds (24.1-36.2)
[2024-04-15 09:01] LABS: Bedside Glucose 141 mg/dL (74-106)
[2024-04-15 09:02] LABS: Prothrombin Time (Protime)PT. 13.5 SECONDS (11.7-14.9)
[2024-04-15] MEDS: Cefazolin 2 GM in Syringe 10 ML IV (10:10)
--- NOTE | 2024-04-15 10:10 | DCINST_ITS ---
Discharge Instructions Diet Discharge Diet: Light diet - advance as tolerated DC O2, CPAP, BIPAP needs Home O2 Discharge instructions: No Dressing / Incision Discharge Activity: May Drive (in 5-7 days or when no longer on pain medication) May shower in (days): 1 May resume sexual activity in: 6-8 weeks and - (Nothing in your vagina for 6 weeks. No vaginal or anal intercourse for 6-8 weeks) Dressing / Incision Call your doctor if your incision/area has: Sudden Increased Bleeding, Increased Pain/ Swelling and Foul Smelling Discharge Call your doctor if you observe: Fever of 101 or Higher and Using more than 1 pad per hour Cleanse incision/area with: Soap & Water and - (Your incisions have skin glue, it can get wet, leave the glue on until it falls off. ) Follow Up Care Please Follow Up With: Yanni Malone MD When: With my office in 1 and 6 weeks or as needed. [phone] call r send a [employer] message Test Results: Test results from this visit will be discussed in further detail at your follow- up appointment, if applicable. Discharge Plan Admission Attending Provider: Yanni Malone Primary Care Provider: Flora Thrasher Instructions Print Language: Emirati Discharge Orders/Prescriptions Prescriptions: No Action duloxetine 60 MG capsule,delayed release(DR/EC) 120 mg PO DAILY gabapentin 800 mg Tablet 800 mg PO TID iron 50 mg iron Tablet 1 tab PO DAILY magnesium 250 mg Tablet 250 mg PO DAILY calcium carbonate-vitamin D3 500 mg-3.125 mcg (125 unit) tablet 1 tab PO DAILY Ozempic 2 mg/dose (8 mg/3 mL) pen injector 2 mg subcut CERDA omeprazole 40 mg capsule,delayed release(DR/EC) 40 mg PO DAILY fluticasone propionate 50 mcg/actuation spray,suspension 2 spray INTRANASAL DAILY Referrals / Follow Up: Flora Thrasher MD [Primary Care Provider] - Disposition Disposition (needs filled in before D/C Order can be placed): Home, Self Care
[2024-04-15] MEDS: Bupivacaine Mpf 0.5% 30 ML VIAL (12:07)
[2024-04-15 12:16] LABS: Bedside Glucose 131 mg/dL (74-106)
--- NOTE | 2024-04-15 12:43 | PCM.OPRPT ---
Problems Associated Problem List Diagnoses (1) Dysmenorrhea: (2) Adenomyosis: (3) Menorrhagia with irregular cycle: (4) Adhesion of omentum: Operative Report (Standard) Operative Information Date of Procedure: 04/15/24 Pre-Operative Diagnosis: Adenomyosis, dysmenorrhea, menorrhagia Post-Operative Diagnosis: Same plus extensive omental adhesions and adhesions of the uterus to the anterior abdominal wall Surgery/Procedure Performed: TLH, bilateral salpingectomy, extensive lysis of adhesions, cystoscopy lab clerk: Yes Health Claims Examiner: Sherice Awan Tasks completed by web press operator assistant: Dissecting tissue, Altering tissue, Insert Trochanter, Hemostasis: Electrocautery, Trocar and Retracting Additional graduate research assistant?: Yes Additional Sock Lining Stitcher #2: Robyn Gavin MS3 Tasks completed by graduate research assistant #2: Closing and Retracting Additional graduate research assistant?: No Type of Anesthesia: General RN Documented Start/Stop Times: Operation Date: 04/15/24 10:15 Case Time Into Pre-Op 04/15/24 07:52 Out of Pre-Op 04/15/24 10:07 Anesthesia Start 04/15/24 10:10 Into Room 04/15/24 10:10 Procedure Start 04/15/24 10:20 Procedure End 04/15/24 12:33 Anesthesia End 04/15/24 12:42 Out of Room 04/15/24 12:42 Procedure Start Time: 10:20 Procedure Stop Time: 12:33 Select all DRAINS/GRAFTS/IMPLANTS that apply: None Estimated Blood Loss: 40 Fluids Replaced: 2100 Specimen collected: Yes Description of specimen(s) removed: uterus, cervix, bilateral fallopian tubes Description of surgery: The patient was taken to the operating room where she was prepped and draped in the dorsal lithotomy position. Her arms were tucked to the side and padded and her legs were placed in the yellowfin stirrups. Care was taken to ensure that she was placed in a neurologically safe and neutral position. A weighted speculum was placed in the vagina and the anterior lip of the cervix was grasped with a single-tooth tenaculum. The cervix sounded to 12 centimeters. 2-0 Vicryl sutures were secured to the cervix at 3 and 9:00. The Uterine portrait studio photographer wass placed into the cervix and the balloon inflated. The stay sutures were placed through the cup and secured down to the cervix. Once the uterine portrait studio photographer was secured to the cervix the Cordova catheter was placed to straight drain. Attention was turned to the abdominal portion of the case. Before skin incisions were made they were infiltrated with 0.5% Marcaine solution for local anesthetic. A 5 mm intraumbilical incision was made and while tenting the anterior abdominal wall up with towel clamps a 5 mm blade less trocar and sleeve were advanced directly into the peritoneal cavity using the visible. Peritoneal placement was confirmed with the laparoscope the pneumoperitoneum was created, and the underlying abdominal contents were intact. The patient was placed in Trendelenburg and the above findings were noted. Right and left lateral 5 mm trochars were placed under direct visualization without difficulty. The wall of omental adhesions near the umbilicus made it difficult for us to use the umbilical port. Decision was made that those would need to be taken down to allow for adequate visualization and manipulation of the uterus and the tissue or otherwise her instruments would be passing through them and so with the laparoscope. A left upper quadrant port was then placed under direct visualization and the LigaSure device was used to clamp seal and transect the omental adhesions off of the anterior abdominal wall this took 17 minutes of additional time in order to take these adhesions down. Once hemostasis was assured the procedure could then be initiated. The antimesenteric portion of the tube was clamped sealed and transected serially on both sides with the LigaSure device. The round ligaments were clamped sealed and transected and a window was made in the peritoneum. The utero-ovarian ligaments were then clamped sealed and transected with the LigaSure device and the pedicles were hemostatic Some dense adhesions of the uterus to the anterior abdominal wall were taken down with blunt dissection the LigaSure device and cauterization. Once I was able to find a plane I was able to use the Bovie to take down some of the bladder adhesions and the adhesions of the uterus to the abdominal wall. This took an additional 20 minutes of operating time in order to take down to the uterine to abdominal wall adhesions. The bladder flap was dissected down with the LigaSure device and blunt dissection and the uterine arteries were then skeletonized. The uterine arteries were clamped sealed and transected on both sides with the LigaSure device. Then along the cardinal ligament uterine arteries adjacent to the cervix were clamped sealed and transected with the LigaSure device to move them away from the vaginal cuff angle. At this point the pedicles were all examined and found to be hemostatic. The bladder flap was rechecked and found to be adequately down. The monopolar tip of the LigaSure device was then used to enter the anterior vagina. The vaginal manipulator cup was noted in the vaginal colpotomy incision was made circumferentially around the cup. When the 3 and 9:00 positions of the cervicovaginal junction were reached these were clamped sealed and transected with the LigaSure device to secure any small remaining vessels. At this point the pedicles were hemostatic from above and attention was turned to the vaginal portion of the case again. The uterus was brought intact out through the vaginal colpotomy incision along with the tubes There is some bleeding from the left vaginal cuff angle and this was grasped with an Allis clamp. Vaginal angle sutures were placed on both sides with 0 Vicryl sutures and care was taken to ensure that the uterosacral ligament was secured into this stitch. The remainder the vagina was then closed horizontally with interrupted 0 Vicryl sutures. The cuff was hemostatic vaginally. The Cordova catheter was removed and a cystoscopy was performed. The bladder appeared normal and was intact. Both ureteral orifices were noted and both ureteral jets were seen. The cystoscope was removed and the Cordova catheter was placed back to straight drain. A sponge stick was placed in the vagina to help place traction against the vaginal cuff and the pneumoperitoneum was re-created. The suction renovation plant supervisor was used to remove any blood and clots from the peritoneal cavity. The pedicles were reexamined and found to be hemostatic. There was some oozing from the bladder flap and the vaginal cuff on the right side. Heemablast was placed over these areas and pressure held with a wet Telfa for 3 minutes and both sites were hemostatic. The vaginal cuff was hemostatic. The rest of the Hemablast was placed over th cuff and pedicles and no bleeding through them was noted. The right and left lateral ports were taken out and the sites were hemostatic. The pneumoperitoneum was released and even under low pressure there was no bleeding of any of the pedicles are vaginal cuff. The umbilical port was removed. The umbilical skin incisions were closed with Monocryl suture and skin glue by the student with me assisting. The vaginal instruments were removed by me and a vaginal sweep was completed by me. The surgery was performed by me with assistance. There were no qualified residents available for this procedure. All sponge lap and needle counts were correct and the patient was transferred to the recovery room in stable condition. Surgical Findings: Wall of adhesions of the omentum to the anterior abdominal wall around the umbilicus, extensive adhesions of the uterus to the anterior abdominal wall. Normal liver. Normal posterior cul-de-sac. Normal ovaries. Tubes with history of previous tubal ligation noted, normal fimbria, boggy uterus. Normal cervix and vagina. Complications Complications: No Admit VTE Documentation VTE Present on Admission: No VTE Mechan Device Prophylaxis: SCD's VTE Pharm Prophylaxis ordered?: Yes
--- NOTE | 2024-04-15 12:48 | PCM.POST.ANE ---
Anesthesia: Postop Eval I Current Vital Signs Temperature: 97.3 F Pulse Rate: 81 Blood Pressure: 168/94 Respiratory Rate: 16 Pulse Ox: 92 Assessment Airway patent: Yes Spontaneous unlabored respirations: Yes nausea: No Vomiting: No Anesthesia Complication: No Fluid Hydration Crystalloid volume administer (ml): 2,000 Total IV fluid infused: 2,000 Progress Note Anesthesia document: Postop Eval 1 completed: Yes
[2024-04-15] MEDS: Lactated Ringers @ 70 MLS/HR 70 ML IV (13:01)
[2024-04-15] MEDS: Ondansetron 4 MG/2 ML Vial IV (13:06)
--- NOTE | 2024-04-15 14:11 | POSTOPAN2_ITS ---
Anesthesia Postop Eval I Sum Postop Eval Completion status Anesthesia document: Postop Eval 1 completed: Yes Anesthesia Postop Eval I Summary Anesthesia Postop Eval I Summary: Anesthesia Postop Eval I: Assessment Summary Airway patent Yes 04/15/24 12:48 [email or web address] Spontaneous unlabored Yes 04/15/24 12:48 [email or web address] respirations Mental status nausea No 04/15/24 12:48 [email or web address] Vomiting No 04/15/24 12:48 [email or web address] [email or web address] Anesthesia Postop Eval I: Fluid Summary Crystalloid volume administer 2,000 04/15/24 12:48 [email or web address] (ml) Colloids volume administered ( ml) Blood Product volume administered (ml) Total IV fluid infused 2,000 04/15/24 12:48 [email or web address] Anesthesia Postop Eval I: Summary Notes Anesthesia Complication No 04/15/24 12:48 [email or web address] Anesthesia Complication Comment: Post-operative progress note Anesthesia: Postop Eval II Evaluation Mental status: Awake Pain Level: 5 (Getting pain medication. ) nausea: No Vomiting: No
--- NOTE | 2024-04-15 14:11 | PCM.POSTANE2 ---
Anesthesia Postop Eval I Sum Postop Eval Completion status Anesthesia document: Postop Eval 1 completed: Yes Anesthesia Postop Eval I Summary Anesthesia Postop Eval I Summary: Anesthesia Postop Eval I: Assessment Summary Airway patent Yes 04/15/24 12:48 CIGAR MAKING MACHINE [email or web address] Spontaneous unlabored Yes 04/15/24 12:48 CIGAR MAKING MACHINE OPERATOR.[email or web address] respirations Mental status nausea No 04/15/24 12:48 CIGAR MAKING MACHINE OPERATOR.[email or web address] Vomiting No 04/15/24 12:48 CIGAR MAKING MACHINE OPERATOR.[email or web address] Anesthesia Postop Eval I: Fluid Summary Crystalloid volume administer 2,000 04/15/24 12:48 CIGAR MAKING MACHINE OPERATOR.TNES (ml) Colloids volume administered ( ml) Blood Product volume administered (ml) Total IV fluid infused 2,000 04/15/24 12:48 CIGAR MAKING MACHINE [email or web address].[email or web address] Anesthesia Postop Eval I: Summary Notes Anesthesia Complication No 04/15/24 12:48 CIGAR MAKING MACHINE OPERATOR.[email or web address] Anesthesia Complication Comment: Post-operative progress note Anesthesia: Postop Eval II Evaluation Mental status: Awake Pain Level: 5 (Getting pain medication. ) nausea: No Vomiting: No
== END 2024-04-15 15:52 | disposition home or self-care (01) ==
LOC: SDC 07:45 → AC 07:46
PROVIDERS: Anesthesiology; PCP Internal Medicine; Referring Provider Obstetrics & Gynecology; Visit Provider Obstetrics & Gynecology
PROC: 0UT94ZZ Resection of Uterus, Percutaneous Endoscopic Approach (ICD-10-PCS; CPT 58571; principal; 2024-04-15 09:55)
DX: N94.6 Dysmenorrhea, unspecified (principal); E11.40 Type 2 diabetes mellitus with diabetic neuropathy, unspecified; E11.22 Type 2 diabetes mellitus with diabetic chronic kidney disease; N80.03 Adenomyosis of the uterus; M79.7 Fibromyalgia; N92.1 Excessive and frequent menstruation with irregular cycle; K21.9 Gastro-esophageal reflux disease without esophagitis; N73.6 Female pelvic peritoneal adhesions (postinfective); G47.33 Obstructive sleep apnea (adult) (pediatric); N83.8 Other noninflammatory disorders of ovary, fallopian tube and broad ligament
CPT/HCPCS: 58571; 00840; 52000; 81025; 82962; 85610; 85730; 86850; 86900; 86901; 88307; 93005; J2405

== ENCOUNTER 2024-05-26 10:22 | Day surgery (SDC) | payer MEDICARE, MEDICAID, SELFPAY ==
--- NOTE | 2024-05-19 09:41 | EKG12_ITS ---
Test Reason : PRE OP Blood Pressure : */* mmHG Vent. Rate : 76 BPM Atrial Rate : 76 BPM P-R Int : 146 ms QRS Dur : 72 ms QT Int : 392 ms P-R-T Axes : 15 61 4 degrees QTcB Int : 441 ms Normal sinus rhythm with sinus arrhythmia Low voltage QRS Borderline Confirmed by Petey Ordonez ([id number]), international editorial producer MAINE YUEN [id number]) on 05/20/2024 5:58:54 AM Referred By: Osvaldo Freeman Confirmed By: Petey Ordonez
--- NOTE | 2024-05-19 09:58 | PAT.ANESEVAL ---
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 When Was Last Pacemaker Check QUESTION #4 FULL TEXT: You/Your Family Experience fever (hyperthermia) with Anesthesia Last Oral Intake Last Oral intake: Last Oral Intake NPO since Meds taken in AM with sips of water? 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 - certified welding inspector: PONV - certified welding inspector Female Yes 05/19/24 09:01 HX of Motion Sickness Yes 05/19/24 09:01 HX of N/V After Surgery Yes 05/19/24 09:01 Non-Smoker Yes 05/19/24 09:01 Duration of Surgery greater Yes 05/19/24 09:01 than 60 minutes Number of Risk Factors 5 05/19/24 09:01 PONV Score Severe Risk 05/19/24 09:01 Height & Weight Height & Weight: Anesthesia: Height & Weight Height 5 ft 10 in 04/15/24 08:11 Respiratory Assessment Respiratory Assessment - certified welding inspector: Respiratory Tract Infection Hx - certified welding inspector Hx Respiratory Tract Infection No 05/19/24 09:01 STOP Sleep Apnea STOP Sleep Apnea - certified welding inspector: STOP Sleep Apnea - certified welding inspector Hx Hypertension No 05/19/24 09:01 Hx Sleep Apnea Yes 05/19/24 09:01 CPAP Yes: NONCOMPLIANT 05/19/24 09:01 BIPAP No 05/19/24 09:01 Do you snore loudly (louder than talking or can be heard Do you often feel tired/ fatigued/ sleepy during daytime? Has anyone observed you stop breathing during sleep? STOP Results Positive 05/19/24 09:01 QUESTION #5 FULL TEXT : Do you snore loudly (louder than talking or can be heard through closed doors)? 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 Specify any problems Hx of Preganancy in last 3 N/A 05/19/24 09:01 Months Nurse Filling Out Transfusion [facility] 05/19/24 09:01 & Questions: Date: 05/19/24 05/19/24 09:01 Time: 09:03 05/19/24 09:01 Patient unable to answer at this time (ie. confused, unrespo /Reproduction History /Reproductive History - certified welding inspector: /Reproductive Hx- certified welding inspector Hx Now Gestational Age (in weeks): EDC: Hx Hx Para Hx Section SAB No 05/19/24 09:01 Active Medications Active Medications: Current Medications Generic Name Dose Route Start Last Admin Trade Name Freq PRN Reason Stop Dose Admin Cefazolin Sodium 2 gm/ N/A 20 mls @ 400 mls/hr 05/20/24 10:25 IV 05/20/24 10:27 PREOP ONE [facility] Medical History (Updated 05/19/24 @ 09:05 by Radha Mac) Distal radius fracture, right Wears glasses Depression Anxiety Diabetes Bladder disease Arthritis Low iron High cholesterol Easy bruising Back pain TIA (transient ischemic attack) Vertigo Restless legs Dietary restriction History of IBS Gastric reflux Shortness of breath on exertion CPAP (continuous positive airway pressure) dependence Non-smoker Leg cramps History of pain when walking History of stress test Contusion of left shoulder Left shoulder strain Callus of toe Foot deformity Neuropathy of both feet Home Medications ?Medication ?Instructions ?Recorded ?Last Taken ?Type duloxetine 60 mg capsule,delayed 120 mg PO DAILY 01/10/15 04/15/24 06:30 History release gabapentin 800 mg tablet 800 mg PO TID NEUROPATHY 07/24/22 Unknown History iron 50 mg iron tablet 1 tab PO DAILY 07/24/22 Unknown History magnesium 250 mg tablet 250 mg PO DAILY 07/24/22 Unknown History calcium 500 mg (as 1 tab PO DAILY 04/06/24 Unknown History carbonate)-vitamin D3 3.125 mcg (125 unit) tablet fluticasone propionate 50 2 spray intranasal DAILY 04/06/24 Unknown History mcg/actuation nasal spray,suspension omeprazole 40 mg capsule,delayed 40 mg PO DAILY 04/06/24 Unknown History release semaglutide 2 mg/dose (8 mg/3 mL) 2 mg subcut CERDA 04/06/24 05/15/24 History subcutaneous pen injector (Ozempic) acetaminophen 500 mg tablet 1,000 mg (2 x 500 mg) PO Q8H PRN 04/15/24 Unknown Rx (Acetaminophen Extra Strength) PRN fever or pain 20 days #60 tabs oxycodone 5 mg tablet 5 mg PO Q8H PRN severe pain 7 days 04/15/24 Unknown Rx #12 TABLETS Allergy/AdvReac Type Severity Reaction Status Date / Time Sulfa (Sulfonamide Allergy Severe Hives Verified 05/19/24 08:58 Antibiotics) Surgical History (Updated 05/19/24 @ 09:05 by Radha Mac) History of hysterectomy (04/15/24) History of esophagogastroduodenoscopy (EGD) Hx of colonoscopy Hx laparoscopic cholecystectomy History of Hx of toe surgery Hx of foot surgery Hx of toe surgery Hx of sinus surgery Hx of elbow surgery Social History Smoking Status: Never smoker Audit: Pertinent Findings Pertinent Findings EKG Perinent findings: April 12, 2024. Normal sinus rhythm. Recommendation Anesthesia Recommendation Anesthesia recommendation: OPTIMIZED for anesthesia
[2024-05-19 10:25] LABS: Absolute Lymphocyte Count 2.84 X10^3/uL (0.83-4.51); Absolute Neutrophil Count 4.2 X10^3/uL (2.0-7.7); Basophil# 0.08 X10^3/uL; Eosinophil# 0.36 X10^3/uL; Eosinophils% 4.4 % (0-5); Hemoglobin 13.6 g/dL (12.0-15.0); Lymphocyte # 2.84 X10^3/ul (0.83-4.51); Lymphocyte % 34.5 % (19-41); Mean Corp Hgb Conc 32.4 g/dL (32-36); Mean Corpuscular Hgb 31.3 pg (27.0-32.0); Mean Corpuscular Volume 96.6 fL (81-99); Mean Platelet Vol. 9.2 fl (6.2-12.0); Monocyte% 8.5 % (0-10); NRBC Flagged by Analyzer 0 % (0-5); Neutrophil # 4.23 X10^3/uL (2.7-7.7); Neutrophil % 51.2 % (47-70); Platelet Count 280 K/mm3 (150-450); RBC Distribution Width SD 42.8 fl (35.1-43.9); Red Blood Count 4.35 M/mm3 (4.2-5.4); White Blood Count 8.2 K/mm3 (4.4-11.0)
[2024-05-19 11:37] LABS: Hemoglobin A1c 5.9 % (<=5.6)
[2024-05-19 12:24] LABS: Anion Gap 9 (5-15); BUN 11 mg/dL (4-19); BUN/Creat Ratio 13.1 RATIO (10-20); Calcium 9.5 mg/dL (7.6-11.0); Carbon Dioxide 27.6 mmol/L (22.0-29.0); Chloride 104 mmol/L (96-108); Creatinine, Serum 0.8 mg/dL (0.6-1.0); EST Glomerular Filtration Rate 84 (>60); Glucose 122 mg/dL (70-99); Potassium 4.1 mmol/L (3.3-5.1); Sodium Level 140 mmol/L (133-145)
--- NOTE | 2024-05-19 16:42 | PAT.ANESEVAL ---
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 When Was Last Pacemaker Check QUESTION #4 FULL TEXT: You/Your Family Experience fever (hyperthermia) with Anesthesia Last Oral Intake Last Oral intake: Last Oral Intake NPO since Meds taken in AM with sips of water? 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 - front desk monitor: PONV - front desk monitor Female Yes 05/19/24 09:01 HX of Motion Sickness Yes 05/19/24 09:01 HX of N/V After Surgery Yes 05/19/24 09:01 Non-Smoker Yes 05/19/24 09:01 Duration of Surgery greater Yes 05/19/24 09:01 than 60 minutes Number of Risk Factors 5 05/19/24 09:01 PONV Score Severe Risk 05/19/24 09:01 Height & Weight Height & Weight: Anesthesia: Height & Weight Height 5 ft 10 in 04/15/24 08:11 Respiratory Assessment Respiratory Assessment - front desk monitor: Respiratory Tract Infection Hx - front desk monitor Hx Respiratory Tract Infection No 05/19/24 09:01 STOP Sleep Apnea STOP Sleep Apnea - front desk monitor: STOP Sleep Apnea - front desk monitor Hx Hypertension No 05/19/24 09:01 Hx Sleep Apnea Yes 05/19/24 09:01 CPAP Yes: NONCOMPLIANT 05/19/24 09:01 BIPAP No 05/19/24 09:01 Do you snore loudly (louder than talking or can be heard Do you often feel tired/ fatigued/ sleepy during daytime? Has anyone observed you stop breathing during sleep? STOP Results Positive 05/19/24 09:01 QUESTION #5 FULL TEXT : Do you snore loudly (louder than talking or can be heard through closed doors)? 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 Specify any problems Hx of Preganancy in last 3 N/A 05/19/24 09:01 Months Nurse Filling Out Transfusion [facility] 05/19/24 09:01 & Questions: Date: 05/19/24 05/19/24 09:01 Time: 09:03 05/19/24 09:01 Patient unable to answer at this time (ie. confused, unrespo /Reproduction History /Reproductive History - front desk monitor: /Reproductive Hx- front desk monitor Hx Now Gestational Age (in weeks): EDC: Hx Hx Para Hx Section SAB No 05/19/24 09:01 Active Medications Active Medications: Current Medications Generic Name Dose Route Start Last Admin Trade Name Freq PRN Reason Stop Dose Admin Cefazolin Sodium 2 gm/ N/A 20 mls @ 400 mls/hr 05/20/24 10:25 IV 05/20/24 10:27 PREOP ONE [facility] Medical History (Updated 05/19/24 @ 09:05 by Radha Mac) Distal radius fracture, right Wears glasses Depression Anxiety Diabetes Bladder disease Arthritis Low iron High cholesterol Easy bruising Back pain TIA (transient ischemic attack) Vertigo Restless legs Dietary restriction History of IBS Gastric reflux Shortness of breath on exertion CPAP (continuous positive airway pressure) dependence Non-smoker Leg cramps History of pain when walking History of stress test Contusion of left shoulder Left shoulder strain Callus of toe Foot deformity Neuropathy of both feet Home Medications ?Medication ?Instructions ?Recorded ?Last Taken ?Type duloxetine 60 mg capsule,delayed 120 mg PO DAILY 01/10/15 04/15/24 06:30 History release gabapentin 800 mg tablet 800 mg PO TID NEUROPATHY 07/24/22 Unknown History iron 50 mg iron tablet 1 tab PO DAILY 07/24/22 Unknown History magnesium 250 mg tablet 250 mg PO DAILY 07/24/22 Unknown History calcium 500 mg (as 1 tab PO DAILY 04/06/24 Unknown History carbonate)-vitamin D3 3.125 mcg (125 unit) tablet fluticasone propionate 50 2 spray intranasal DAILY 04/06/24 Unknown History mcg/actuation nasal spray,suspension omeprazole 40 mg capsule,delayed 40 mg PO DAILY 04/06/24 Unknown History release semaglutide 2 mg/dose (8 mg/3 mL) 2 mg subcut CERDA 04/06/24 05/15/24 History subcutaneous pen injector (Ozempic) acetaminophen 500 mg tablet 1,000 mg (2 x 500 mg) PO Q8H PRN 04/15/24 Unknown Rx (Acetaminophen Extra Strength) PRN fever or pain 20 days #60 tabs oxycodone 5 mg tablet 5 mg PO Q8H PRN severe pain 7 days 04/15/24 Unknown Rx #12 TABLETS Allergy/AdvReac Type Severity Reaction Status Date / Time Sulfa (Sulfonamide Allergy Severe Hives Verified 05/19/24 08:58 Antibiotics) Surgical History (Updated 05/19/24 @ 09:05 by Radha Mac) History of hysterectomy (04/15/24) History of esophagogastroduodenoscopy (EGD) Hx of colonoscopy Hx laparoscopic cholecystectomy History of Hx of toe surgery Hx of foot surgery Hx of toe surgery Hx of sinus surgery Hx of elbow surgery Social History Smoking Status: Never smoker Audit: Pertinent Findings HISTORY of Pertinent Findings History of Pertinent Findings: EKG Pertinent Findings EKG Perinent findings April 12, 2024. Normal 05/19/24 09:59 sinus rhythm. Pertinent Findings EKG Perinent findings: May 19, 2024. Normal sinus rhythm with sinus arrhythmia. Inferior infarct seen previous EKG. Compared to April 12, 2024, nonspecific T wave abnormalities now evident in anterior leads. Recommendation Anesthesia Recommendation Anesthesia recommendation: OPTIMIZED for anesthesia
[2024-05-26] VITALS (11 sets, daily range): BP systolic 127–154; BP diastolic 55–95; PULSE 65–81; RESP 16–18; TEMP 36.2–37.2; O2SAT 93–100; BMI 36.6
[2024-05-26] MEDS: 0.9% Normal Saline (1000mL) 1,000 ML 15 ML IV (10:46)
--- NOTE | 2024-05-26 11:05 | PCM.PRE.AN2 ---
ASA Classification* ASA Classification ASA Classification: 3 Assessment & Plan Anesthesia* Anesthesia Assessment Anesthesia Assessment: Discussed sedation and/or anesthesia options, risks, benefits, and alternatives with patient/parents/legal guardian/POA. Questions invited. The patient/parents/legal guardian/POA seems to understand and agrees to proceed with anesthesia plan. Reviewed the physical assessment, medical history, allergy history and patient home medications list prior to surgery/procedure/anesthetic and documented any changes. Performed airway and anesthesia risk assessments. Anesthesia Type Anesthesia Type: General and Block (Patient is consented for axillary block.) History Source History Obtained from:: Patient and Chart Anesthesia Focused Assessment* Temperature: 97.1 F Pulse Rate: 81 Blood Pressure: 129/95 Respiratory Rate: 16 Pulse Ox: 98 Oxygen Delivery Method: Room Air Airway Assessment Mouth opens: >3 cm Mallampati Score: III Teeth Condition: Missing (Patient is edentulous.) Neck Range of motion (ROM): Limited ROM (Slight decrease in extension) Focused Labs Anesthesia Preop lab: CBC WBC 8.2 K/mm3 (4.4-11.0) 05/19/24 10:00 05/19/24 RBC 4.35 M/mm3 (4.2-5.4) 05/19/24 10:00 05/19/24 Hgb 13.6 g/dL (12.0-15.0) 05/19/24 10:00 05/19/24 Hct 42.0 % (37-47) 05/19/24 10:00 05/19/24 Plt Count 280 K/mm3 (150-450) 05/19/24 10:00 05/19/24 CHEMISTRY Potassium 4.1 mmol/L (3.3-5.1) 05/19/24 10:00 05/19/24 Sodium 140 mmol/L (133-145) 05/19/24 10:00 05/19/24 BUN 11 mg/dL (4-19) 05/19/24 10:00 05/19/24 Creatinine 0.8 mg/dL (0.6-1.0) 05/19/24 10:00 05/19/24 Glucose 122 mg/dL (70-99) H 05/19/24 10:00 05/19/24 POC Glucose 131 mg/dL (74-106) H 04/15/24 11:59 04/15/24 COAG PT 13.5 SECONDS (11.7-14.9) 04/15/24 08:10 04/15/24 Urine Test Negative Negative 04/15/24 08:00 04/15/24 Pre-Assessment Diagnosis/Proposed Procedure Planned Operative Procedure(s): ORIF DISTAL RADIUS Anesthesia History 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 When Was Last Pacemaker Check QUESTION #4 FULL TEXT: You/Your Family Experience fever (hyperthermia) with Anesthesia Last Oral Intake Last Oral intake: Last Oral Intake NPO since 00:00 05/26/24 10:38 Meds taken in AM with sips of water? 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 Female Yes 05/19/24 09:01 HX of Motion Sickness Yes 05/19/24 09:01 HX of N/V After Surgery Yes 05/19/24 09:01 Non-Smoker Yes 05/19/24 09:01 Duration of Surgery greater Yes 05/19/24 09:01 than 60 minutes Number of Risk Factors 5 05/19/24 09:01 PONV Score Severe Risk 05/19/24 09:01 Height & Weight Height & Weight: Anesthesia: Height & Weight Height 5 ft 10 in 05/26/24 10:38 Weight: 116 kg 05/26/24 10:38 Body Mass Index (BMI) 36.6 05/26/24 10:38 Respiratory Assessment Respiratory Assessment - steam and power superintendent: Respiratory Tract Infection Hx - steam and power superintendent Hx Respiratory Tract Infection No 05/19/24 09:01 STOP Sleep Apnea STOP Sleep Apnea - steam and power superintendent: STOP Sleep Apnea - steam and power superintendent Hx Hypertension No 05/19/24 09:01 Hx Sleep Apnea Yes 05/19/24 09:01 CPAP Yes: NONCOMPLIANT 05/19/24 09:01 BIPAP No 05/19/24 09:01 Do you snore loudly (louder than talking or can be heard Do you often feel tired/ fatigued/ sleepy during daytime? Has anyone observed you stop breathing during sleep? STOP Results Positive 05/19/24 09:01 QUESTION #5 FULL TEXT : Do you snore loudly (louder than talking or can be heard through closed doors)? 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 Specify any problems Hx of Preganancy in last 3 N/A 05/19/24 09:01 Months Nurse Filling Out Transfusion [facility] 05/19/24 09:01 & Questions: Date: 05/19/24 05/19/24 09:01 Time: 09:03 05/19/24 09:01 Patient unable to answer at this time (ie. confused, unrespo /Reproduction History /Reproductive History - steam and power superintendent: /Reproductive Hx- steam and power superintendent Hx Now Gestational Age (in weeks): EDC: Hx Hx Para Hx Section SAB No 05/19/24 09:01 Active Medications Active Medications: Current Medications Generic Name Dose Route Start Last Admin Trade Name Freq PRN Reason Stop Dose Admin Cefazolin Sodium 2 gm/ N/A 20 mls @ 400 mls/hr 05/26/24 12:00 IV 05/26/24 12:02 PREOP ONE Sodium Chloride 1,000 mls @ 15 mls/hr 05/26/24 10:35 05/26/24 10:46 IV 05/31/24 23:54 15 mls/hr .Q48H LOVE Administration Protocol PFSH Medical History Distal radius fracture, right Wears glasses Depression Anxiety Diabetes Bladder disease Arthritis Low iron High cholesterol Easy bruising Back pain TIA (transient ischemic attack) Vertigo Restless legs Dietary restriction History of IBS Gastric reflux Shortness of breath on exertion CPAP (continuous positive airway pressure) dependence Non-smoker Leg cramps History of pain when walking History of stress test Contusion of left shoulder Left shoulder strain Callus of toe Foot deformity Neuropathy of both feet Home Medications ?Medication ?Instructions ?Recorded ?Last Taken ?Type duloxetine 60 mg capsule,delayed 120 mg PO DAILY 01/10/15 05/25/24 History release gabapentin 800 mg tablet 800 mg PO TID NEUROPATHY 07/24/22 05/25/24 History iron 50 mg iron tablet 1 tab PO DAILY 07/24/22 05/25/24 History magnesium 250 mg tablet 250 mg PO DAILY 07/24/22 05/25/24 History calcium 500 mg (as 1 tab PO DAILY 04/06/24 05/25/24 History carbonate)-vitamin D3 3.125 mcg (125 unit) tablet fluticasone propionate 50 2 spray intranasal DAILY 04/06/24 05/25/24 History mcg/actuation nasal spray,suspension omeprazole 40 mg capsule,delayed 40 mg PO DAILY 04/06/24 05/25/24 History release semaglutide 2 mg/dose (8 mg/3 mL) 2 mg subcut CERDA 04/06/24 05/15/24 History subcutaneous pen injector (Ozempic) acetaminophen 500 mg tablet 1,000 mg (2 x 500 mg) PO Q8H PRN 04/15/24 Unknown Rx (Acetaminophen Extra Strength) PRN fever or pain 20 days #60 tabs oxycodone 5 mg tablet 5 mg PO Q8H PRN severe pain 7 days 04/15/24 05/25/24 Rx #12 TABLETS Allergy/AdvReac Type Severity Reaction Status Date / Time Sulfa (Sulfonamide Allergy Severe Hives Verified 05/26/24 10:37 Antibiotics) Surgical History History of hysterectomy (04/15/24) History of esophagogastroduodenoscopy (EGD) Hx of colonoscopy Hx laparoscopic cholecystectomy History of Hx of toe surgery Hx of foot surgery Hx of toe surgery Hx of sinus surgery Hx of elbow surgery Social History Smoking Status: Never smoker Review of Systems (Anesthesia) ROS Narrative System reviewed and no additional complaints, except as documented.
[2024-05-26 11:07] LABS: Bedside Glucose 109 mg/dL (74-106)
[2024-05-26] MEDS: Cefazolin 2 GM in Syringe IV (11:35)
--- NOTE | 2024-05-26 11:38 | RAD_ITS ---
PROCEDURE: Intraoperative fluoroscopic services provided for open reduction and internal fixation of the distal radial fracture. REASON FOR EXAM: ORIF of the distal radial fracture. TECHNIQUE: 2 view(s) of the right wrist were obtained. COMPARISON: None. FINDINGS: RIGHT WRIST: Intraoperative fluoroscopic imaging provided for open reduction and internal fixation of the distal radial fracture utilizing screw and plate fixation device. There is good alignment. RAD/Wrist 2 Views IMPRESSION: Fluoroscopic services provided for open reduction and internal fixation of the distal radial fracture. There is good alignment. Reading Location: [id number]
[2024-05-26] MEDS: Bupiv/Epi 0.25% 30 ML Vial (12:02)
--- NOTE | 2024-05-26 13:15 | PCM.POST.ANE ---
Anesthesia: Postop Eval I Current Vital Signs Temperature: 97.2 F Pulse Rate: 72 Blood Pressure: 139/93 Respiratory Rate: 16 Pulse Ox: 98 Assessment Airway patent: Yes Spontaneous unlabored respirations: Yes nausea: No Vomiting: No Anesthesia Complication: No Fluid Hydration Crystalloid volume administer (ml): 1,300 Total IV fluid infused: 1,300 Progress Note Anesthesia document: Postop Eval 1 completed: Yes
--- NOTE | 2024-05-26 13:28 | OP.PCM_ITS ---
Operative Report (Standard) Operative Information Date of Procedure: 05/26/24 Pre-Operative Diagnosis: Right intra-articular distal radius fracture Post-Operative Diagnosis: Right intra-articular distal radius fracture Surgery/Procedure Performed: Right distal radius open reduction internal fixation, greater than 3 parts community chest officer: Yes Ruby On Rails Software Developer: Marcy Floyd Tasks completed by baking assistant: Opening & closing, Implanting device and Retracting Additional marketing assistant manager?: No Type of Anesthesia: General RN Documented Start/Stop Times: Operation Date: 05/26/24 12:00 Case Time Into Pre-Op 05/26/24 10:30 Anesthesia Start 05/26/24 11:22 Into Room 05/26/24 11:22 Procedure Start 05/26/24 11:46 Out of Pre-Op 05/26/24 11:52 Procedure End 05/26/24 13:04 Anesthesia End 05/26/24 13:12 Out of Room 05/26/24 13:12 Into Recovery 05/26/24 13:15 Procedure Start Time: 11:46 Procedure Stop Time: 13:04 Select all DRAINS/GRAFTS/IMPLANTS that apply: Implanted device Implanted device details: Arthrex narrow volar locking plate, 3-hole right Estimated Blood Loss: 25 cc Specimen collected: No Description of surgery: Patient was notified today of surgery by name, medical record number, and date of . The operative extremity was marked. All questions were answered to the patient satisfaction. Patient was then brought to the operative suite and positioned supine on a standard operating table. Hand table was attached patient's right side general anesthesia was induced and LMA placed. Well-padded pneumatic tourniquet was applied to the right upper arm. Right upper extremity was prepped and draped in normal, sterile orthopedic fashion. We performed a timeout confirming the side, site, operation be performed. No concerns were voiced and we elected to proceed with surgery. Right upper extremity was then exsanguinated Esmarch bandage. Tourniquet was inflated to 250 mmHg for approximately 45 minutes. Esmarch was removed. Standard FCR approach was then performed to the distal radius. Full-thickness skin flaps were developed down to the FCR. FCR was retracted ulnarly and the floor the sheath was opened. Pronator quadratus was intact and L-shaped tenotomy was performed. Comminuted radial styloid and radial column fracture was noted. Fracture hematoma was debrided. Provisional reduction was performed with combination of pointed clamps and ulnar deviation. Reasonable reduction was achieved. I elected to secure plate to bone and then reduce the fracture to the plate. Cortical screw was placed in the oblong hole of the plate in appropriate position. I then used the pointed clamp and a lobster claw clamp to reduce the comminuted radial column. 2 locking compression screws were placed in the radial styloid portion of the plate achieving reduction and fixation of the radial styloid. The proximal portion of the fracture was still unstable. The remainder of the distal segment was filled with locking screws. Cortical screws were filled in the shaft in sterile fashion. The wrist was stable following final fixation. I elected to place 2 percutaneous K wires for additional fixation of the radial column. Wound was copiously irrigated with normal saline. K wires were bent and cut. Tourniquet was deflated. Hemostasis was excellent. Dermis was then reapproximated with buried 3-0 Vicryl suture and skin reapproximated with 4-0 subcuticular 4-0 Monocryl. Dermabond was applied. Field block of 10 cc quarter percent bupivacaine with epinephrine was administered. Bulky sterile compression dressing was applied. Well-padded fiberglass short arm splint was applied. She was awakened from anesthesia. She tolerated procedure well without apparent complication. She was extubated in the operative suite and transferred to her gurney and subsequently to PACU in stable condition. Need for skilled marketing assistant manager: Marcy Flyod PA-C was critical to the outcome of the case. During the course of the procedure the physician marketing assistant manager played a vital role. Her intimate knowledge of my steps in the procedure aided in safe and expedient completion of the procedure. The PA played a vital role in positioning particularly in obtaining the appropriate positioning. The PA was also vital in the retraction of soft tissues during the exposure and protecting vital structures. The PA was also vital and obtaining fracture reduction and assisting with hardware placement. She also played a vital role in closure and splint application with my direct supervision. Postoperative plan: Nonweightbearing upper extremity. Maintain splint till follow-up. X-rays in splint in 2 weeks. Consider pulling pins in 2 weeks versus transition to cast maintaining pins. X-rays will help us determine next steps. Ice and elevation. Oxycodone prescription provided. Tylenol and ibuprofen encouraged. Aspirin 81 mg twice daily for DVT prophylaxis x 2 weeks. Follow-up in 2 weeks. Surgical Findings: Comminuted radial styloid fracture, intra-articular stable following final fixation Complications Complications: No Admit VTE Documentation VTE Present on Admission: No VTE Mechan Device Prophylaxis: SCD's VTE Pharm Prophylaxis ordered?: Yes
[2024-05-26] MEDS: oxyCODONE 5 MG Tablet PO (14:54)
--- NOTE | 2024-05-26 16:42 | POSTOPAN2_ITS ---
Anesthesia Postop Eval I Sum Postop Eval Completion status Anesthesia document: Postop Eval 1 completed: Yes Anesthesia Postop Eval I Summary Anesthesia Postop Eval I Summary: Anesthesia Postop Eval I: Assessment Summary Airway patent Yes 05/26/24 13:19 VETERINARY MEAT [email or web address] Spontaneous unlabored Yes 05/26/24 13:19 VETERINARY MEAT [email or web address].CSIR respirations Mental status nausea No 05/26/24 13:19 VETERINARY MEAT [email or web address] Vomiting No 05/26/24 13:19 VETERINARY MEAT [email or web address] Anesthesia Postop Eval I: Fluid Summary Crystalloid volume administer 1,300 05/26/24 13:19 VETERINARY MEAT [email or web address].CSIR (ml) Colloids volume administered ( ml) Blood Product volume administered (ml) Total IV fluid infused 1,300 05/26/24 13:19 VETERINARY MEAT [email or web address] Anesthesia Postop Eval I: Summary Notes Anesthesia Complication No 05/26/24 13:19 VETERINARY MEAT [email or web address] Anesthesia Complication Comment: Post-operative progress note Anesthesia: Postop Eval II Evaluation Mental status: Awake Pain Level: 2 nausea: No Vomiting: No
--- NOTE | 2024-05-26 16:42 | PCM.POSTANE2 ---
Anesthesia Postop Eval I Sum Postop Eval Completion status Anesthesia document: Postop Eval 1 completed: Yes Anesthesia Postop Eval I Summary Anesthesia Postop Eval I Summary: Anesthesia Postop Eval I: Assessment Summary Airway patent Yes 05/26/24 13:19 [email or web address] Spontaneous unlabored Yes 05/26/24 13:19 [email or web address] respirations Mental status nausea No 05/26/24 13:19 [email or web address] Vomiting No 05/26/24 13:19 [email or web address] Anesthesia Postop Eval I: Fluid Summary Crystalloid volume administer 1,300 05/26/24 13:19 [email or web address] (ml) Colloids volume administered ( ml) Blood Product volume administered (ml) Total IV fluid infused 1,300 05/26/24 13:19 [email or web address] Anesthesia Postop Eval I: Summary Notes Anesthesia Complication No 05/26/24 13:19 [email or web address] Anesthesia Complication Comment: Post-operative progress note Anesthesia: Postop Eval II Evaluation Mental status: Awake Pain Level: 2 nausea: No Vomiting: No
== END 2024-05-26 15:42 | disposition home or self-care (01) ==
LOC: SDC 10:24 → AC 10:27
PROVIDERS: PCP Internal Medicine; Referring Provider Student in an Organized Health Care Education/Training Program; Visit Provider Student in an Organized Health Care Education/Training Program
PROC: (CPT 25609; principal; 2024-05-26 11:40)
DX: S52.571A Other intraarticular fracture of lower end of right radius, initial encounter for closed fracture (principal); E11.9 Type 2 diabetes mellitus without complications; Z98.51 Tubal ligation status; K21.9 Gastro-esophageal reflux disease without esophagitis; E78.00 Pure hypercholesterolemia, unspecified; S52.611A Displaced fracture of right ulna styloid process, initial encounter for closed fracture; S62.171A Displaced fracture of trapezium [larger multangular], right wrist, initial encounter for closed fracture; E66.9 Obesity, unspecified; R03.0 Elevated blood-pressure reading, without diagnosis of hypertension; Z68.34 Body mass index [BMI] 34.0-34.9, adult; W01.0XXA Fall on same level from slipping, tripping and stumbling without subsequent striking against object, initial encounter
CPT/HCPCS: 25609; 01830; 36415; 73100; 76000; 80048; 82962; 83036; 85025; 93005; C1713; J2405

== ENCOUNTER 2024-07-06 18:02 | Emergency (ER) | payer MEDICARE, MEDICAID, SELFPAY ==
[2024-07-06 18:03] VITALS: BP 145/76; PULSE 74; RESP 18; TEMP 36.9; O2SAT 95; BMI 37.2
--- NOTE | 2024-07-06 18:30 | CT_ITS ---
PROCEDURE: EXTREMITY LOWER WITHOUT CONTRA 07/06/2024 REASON FOR EXAM: FALL TECHNIQUE: Axial CT images of the right knee obtained with intravenous contrast. Coronal and Sagittal reconstruction series were provided. One or more dose reduction techniques were used (e.g., Automated exposure control, adjustment of the mA and/or kV according to patient size, use of iterative reconstruction technique). FINDINGS: Bones: No evidence of fracture. Joints: Degenerative changes are present Soft Tissues: Unremarkable. CT/Extremity Lower without Contra IMPRESSION: No acute fracture or dislocation. Severe arthrosis. Reading Location: [id number]
--- NOTE | 2024-07-06 18:35 | ED.VIS.LOWEX ---
HPI History of Present Illness HPI Narrative: Patient presents with left thigh and knee pain and swelling that has been getting worse since a fall 1 week ago. Patient states she had outpatient x-rays initially which were read as negative. Patient states she followed up with the orthopedic office today who noted that there could be a fracture of her distal femur. Patient was then referred to the emergency department for CT scan as well as a venous duplex for possible DVT. Patient describes her pain as sharp. Patient states it is worse with any movement or weightbearing. Patient denies any paresthesias or weakness. Patient also complains of pain over her left shoulder and clavicle. Patient denies any chest pain or shortness of breath. Chief Complaint: Lower Extremity Injury Informant: patient Occured/Mechanism Mechanism/Context: Yes fall Onset/Context/Timing Onset: Weeks (1) Context: Sudden Onset Timing: Continuous Quality of Pain: Sharp Location: Left knee Worsened by: Movement, weightbearing Relieved by: Nothing Associated Symptoms Associated Symptoms: Negative for Parasthesia, Weakness or Loss of Funtion PFSH [facility] Medical History Distal radius fracture, right Wears glasses Depression Anxiety Diabetes Bladder disease Arthritis Low iron High cholesterol Easy bruising Back pain TIA (transient ischemic attack) Vertigo Restless legs Dietary restriction History of IBS Gastric reflux Shortness of breath on exertion CPAP (continuous positive airway pressure) dependence Non-smoker Leg cramps History of pain when walking History of stress test Contusion of left shoulder Left shoulder strain Callus of toe Foot deformity Neuropathy of both feet Home Medications ?Medication ?Instructions ?Recorded ?Last Taken ?Type duloxetine 60 mg capsule,delayed 120 mg PO DAILY 01/10/15 05/25/24 History release gabapentin 800 mg tablet 800 mg PO TID NEUROPATHY 07/24/22 05/25/24 History iron 50 mg iron tablet 1 tab PO DAILY 07/24/22 05/25/24 History magnesium 250 mg tablet 250 mg PO DAILY 07/24/22 05/25/24 History calcium 500 mg (as 1 tab PO DAILY 04/06/24 05/25/24 History carbonate)-vitamin D3 3.125 mcg (125 unit) tablet fluticasone propionate 50 2 spray intranasal DAILY 04/06/24 05/25/24 History mcg/actuation nasal spray,suspension omeprazole 40 mg capsule,delayed 40 mg PO DAILY 04/06/24 05/25/24 History release semaglutide 2 mg/dose (8 mg/3 mL) 2 mg subcut CERDA 04/06/24 05/15/24 History subcutaneous pen injector (Ozempic) acetaminophen 500 mg tablet 1,000 mg (2 x 500 mg) PO Q8H PRN 04/15/24 Unknown Rx (Acetaminophen Extra Strength) PRN fever or pain 20 days #60 tabs oxycodone 5 mg tablet 5 mg PO Q8H PRN severe pain 7 days 04/15/24 05/25/24 Rx #12 TABLETS oxycodone 5 mg tablet 5 mg PO Q6H PRN pain 7 days #28 05/26/24 Unknown Rx tabs oxycodone-acetaminophen 5 mg-325 1 tab PO Q6H PRN PRN Pain 3 days 07/06/24 Unknown Rx mg tablet #12 TABLETS Allergy/AdvReac Type Severity Reaction Status Date / Time Sulfa (Sulfonamide Allergy Severe Hives Verified 05/26/24 10:37 Antibiotics) Surgical History History of hysterectomy (04/15/24) History of esophagogastroduodenoscopy (EGD) Hx of colonoscopy Hx laparoscopic cholecystectomy History of Hx of toe surgery Hx of foot surgery Hx of toe surgery Hx of sinus surgery Hx of elbow surgery Social History Smoking Status: Never smoker ROS ROS ED Constitutional Constitutional ED: Denies chills or fever(s) Eyes Eyes: Denies blurry vision or change in vision ENT ENT ED: Denies rhinorrhea or sore throat Cardiovascular Cardiovascular: Denies chest pain or palpitations Respiratory/Chest Respiratory/Chest: Denies cough or dyspnea Gastrointestinal Gastrointestinal: Denies nausea or vomiting Genitourinary Genitourinary ED: Denies dysuria or hematuria Musculoskeletal Musculoskeletal: Denies back pain or neck pain Integumentary Denies abscess or rash Neurologic Neurologic: Denies headache(s) or weakness Allergic/Immunologic Allergic/Immunologic ED: Denies mouth swelling or urticaria EXAM Physical Exam Const Vital Signs: 07/06/24 18:03 Temperature 98.5 F Temperature Source Oral Pulse Rate 74 Respiratory Rate 18 Blood Pressure 145/76 H Blood Pressure Mean 99 Pulse Ox 95 Oxygen Delivery Method Room Air Positive well nourished and well developed Constitutional Narrative: BMI is 37.2. General Appearance ED: well developed and NAD HEENT Reports moist mucous membranes normocephalic and atraumatic Extremity Extremity Narrative: There is tenderness and edema over the medial aspect of the left knee. There is no obvious deformity noted. Range of motion was limited in all motions of the left knee secondary to pain. Pedal pulses are equal bilaterally. Capillary refill was less than 2 seconds in all digits. Strength is 5/5 bilaterally in the lower extremities. There is tenderness over the anterior aspect of the left shoulder and left clavicle. There is some mild edema. There is no deformity noted. There is no bony crepitance or step-off. Range of motion was slightly limited in all motions of the left shoulder secondary to pain. Radial pulses are equal bilaterally. Strength is 5/5 in the radial, median, and ulnar areas. Sensation was intact to light touch in the radial, median, and ulnar areas. Neuro oriented x3, CN's II-XII intact bilaterally and moves all extremities Neuro Narrative: There is decreased sensation to light touch bilaterally in the feet and ankles. Sensorium / Orientation: alert Motor Exam: strength 5/5 throughout Psych mental status grossly normal MDM MDM MDM Narrative Medical decision making narrative: Differential diagnosis includes left shoulder fracture, left clavicle fracture, left distal femur fracture, left knee sprain, and DVT. X-rays of the left shoulder will be obtained to assess for proximal humerus and clavicle fracture. CT scan of the left knee will be obtained to assess for occult fracture. Venous duplex of the left lower extremity will be obtained to assess for DVT. Radiography Diagnostic Testing: Clinical Impression(s) from Imaging Studies Lower Extremity CT 07/06/24 18:30 IMPRESSION: No acute fracture or dislocation. Severe arthrosis. Reading Location: [facility] Venous Duplex 07/06/24 18:46 IMPRESSION: No deep venous thrombosis identified in the extremity. Reading Location: [facility] Shoulder X-Ray 07/06/24 19:13 IMPRESSION: NO ACUTE FRACTURE OR DISLOCATION. Reading Location: [facility] CT scan of the left knee was obtained. There is no acute fracture or dislocation. This was interpreted by the radiologist and was also independently reviewed by myself. X-rays of the left shoulder were obtained. There are 5 views. On my independent interpretation, there is no acute fracture or dislocation noted. There is no soft tissue swelling noted. Radiologist also interpreted the x-rays and agrees. Venous duplex of the left lower extremity was obtained. There is no evidence of DVT. This was interpreted by the radiologist and was also independently reviewed by myself. Treatment and Re-Evaluation Narrative: Patient was given morphine. Patient was advised of her findings. Patient was given a knee immobilizer. Patient was instructed to ice and elevate the left lower extremity. Patient was also instructed to use ice to her left shoulder. Patient was given a prescription for a short course of Percocet. Patient was instructed to follow-up with her orthopedic surgeon in 5 to 7 days. Patient was instructed to return if worse in any way. Patient understood and was agreeable with the plan. All questions were answered. Discharge Plan Triage Chief Complaint: Lower Extremity Injury ED Provider: Alton Lott Dx/Rx/DC Orders Clinical Impression: Left knee sprain, Sprain of left shoulder, Fall Instructions: ED Knee Sprain, ED Shoulder Sprain Prescriptions: New oxycodone-acetaminophen 5-325 mg tablet 1 tab PO Q6H PRN PRN (Reason: Pain) 3 Days Qty: 12 0RF No Action duloxetine 60 MG capsule,delayed release(DR/EC) 120 mg PO DAILY gabapentin 800 mg Tablet 800 mg PO TID iron 50 mg iron Tablet 1 tab PO DAILY magnesium 250 mg Tablet 250 mg PO DAILY calcium carbonate-vitamin D3 500 mg-3.125 mcg (125 unit) tablet 1 tab PO DAILY Ozempic 2 mg/dose (8 mg/3 mL) pen injector 2 mg subcut CERDA omeprazole 40 mg capsule,delayed release(DR/EC) 40 mg PO DAILY fluticasone propionate 50 mcg/actuation spray,suspension 2 spray INTRANASAL DAILY acetaminophen [Acetaminophen Extra Strength] 500 mg tablet 1,000 mg PO Q8H PRN PRN (Reason: fever or pain) 20 Days Qty: 60 0RF oxycodone 5 mg tablet 5 mg PO Q8H PRN (Reason: severe pain) 7 Days Qty: 12 0RF oxycodone 5 mg tablet 5 mg PO Q6H PRN (Reason: pain) 7 Days Qty: 28 0RF Primary Care Provider: Flora Thrasher Referrals: Flora Thrasher MD [Primary Care Provider] - 5-7 Days Osvaldo Freeman DO [Med Staff - Active Staff] - 5-7 Days Print Language: Moroccan Disposition Disposition: Home, Self Care
[2024-07-06] MEDS: Morphine 4 MG/ML Syringe IV (18:42)
--- NOTE | 2024-07-06 18:46 | US_ITS ---
PROCEDURE: VENOUS DUPLEX IMAG/LIMITED/UNI 07/06/2024 REASON FOR EXAM: F 53 y/o Leg pain and swelling TECHNIQUE: Grayscale color flow and doppler analysis of the left lower extremity. FINDINGS: There is no intraluminal echogenicity to suggest the presence of a deep venous thrombosis. Appropriate respiratory variation, augmentation and venous compression is noted. US/Venous Duplex Imag/Limited/Uni IMPRESSION: No deep venous thrombosis identified in the extremity. Reading Location: [id number]
--- NOTE | 2024-07-06 19:13 | RAD_ITS ---
PROCEDURE: SHOULDER MIN 2 VIEWS 07/06/2024 REASON FOR EXAM: INJURY/PAIN TECHNIQUE: 3 view(s) of the left shoulder FINDINGS: Bones: No acute fracture or dislocation. Joints: Normal alignment of the acromioclavicular and glenohumeral joints. Soft tissues: Soft tissues are unremarkable. Other: RAD/Shoulder min 2 Views IMPRESSION: NO ACUTE FRACTURE OR DISLOCATION. Reading Location: [id number]
[2024-07-06 20:34] VITALS: BP 140/93
== END 2024-07-06 20:34 | disposition home or self-care (01) ==
PROVIDERS: Emergency Provider Emergency Medicine; PCP Internal Medicine; Referring Provider Emergency Medicine; Visit Provider Emergency Medicine
DX: S83.92XA Sprain of unspecified site of left knee, initial encounter (principal); E11.40 Type 2 diabetes mellitus with diabetic neuropathy, unspecified; E78.00 Pure hypercholesterolemia, unspecified; Z90.710 Acquired absence of both cervix and uterus; Z90.49 Acquired absence of other specified parts of digestive tract; Z86.73 Personal history of transient ischemic attack (TIA), and 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 residual deficits; W19.XXXA Unspecified fall, initial encounter; M79.89 Other specified soft tissue disorders
CPT/HCPCS: 73030; 73700; 93971; 96374; 99284; A4216

== ENCOUNTER 2025-02-25 17:21 | Emergency (ER) | payer MEDICARE, MEDICAID, SELFPAY ==
[2025-02-25 17:21] VITALS: BP 139/95; PULSE 90; RESP 16; TEMP 36.2; O2SAT 98; BMI 37.0
--- NOTE | 2025-02-25 17:27 | RAD_ITS ---
PROCEDURE: ANKLE MIN 3 VIEWS 02/25/2025 REASON FOR EXAM: PAIN TECHNIQUE: Procedure Code: RADANK Modality: DX Procedure: ANKLE MIN 3 VIEWS Laterality: FINDINGS: Plate and screw fixation of the tibia. Surgical screws in the midfoot. Severe degenerative changes of the visualized foot. Osseous demineralization. RAD/Ankle min 3 Views IMPRESSION: As above. Reading Location: [id number]
--- NOTE | 2025-02-25 17:31 | ED.RN ---
pt had a diabetic ulcer and was placed in a cast through for the past 3 months. pt states she was placed genny boot yesterday, stepped down by her bed and heard a noise, has been painful since
--- OUTSIDE RECORDS SUMMARY | 2025-02-25 17:40 | XMS RPT_ITS | CCD ---
Author Organization [facility] Care Team Providers Care Social And Human Services Assistant Name Role Phone Lulu Luciano Primary Care Provider [phone] DR LULU LUCIANO MD Primary Care Physician Sheldon PT, Jannet Unavailable Unavailable Lulu Luciano Primary Care Provider Lulu Luciano MD Primary Care Provider [facility], Keti Unavailable Star Gonzales MD Primary Care Provider [facility], Keti Unavailable Star Gonzales MD Primary Care Provider [facility], Keti Unavailable Star Gonzales MD Primary Care Provider JING VIRGEN Referring Unavailable STAR GONZALES Primary Care Unavailable [facility], Keti Unavailable Star Gonzales MD Primary Care Provider DR LULU LUCIANO MD Primary Care Physician Lulu Luciano MD Primary Care Provider Dr. Lulu Luciano Primary Care Provider Dr. Cliff Nguyen Attending Provider [phone] Dr. Cliff Nguyen Other Provider [phone] Diomedes Cosme Referring Provider Dr. Lulu Luciano Referring Provider HETAL Willis Attending Provider [facility], Keti Unavailable Dr. Lulu Luciano Primary Care Provider Dr. Lulu Luciano Referring Provider HETAL Cash Attending Provider ANKITA DAVIS, DR LAWSON Primary Care Unavailable ALEX GARCIA, DR REGGIE Orosco Attending Unavailable ANKITA DAVIS, DR LAWSON Primary Care Unavailable FRED DAVIS, MAMADOU Patel Attending Unavailable Lulu Luciano MD Primary Care Provider RIDDHI RIVERA Referring Unavailable LULU LUCIANO Primary Care Unavailable [facility], Keti Unavailable Janet DAVIS, Star Primary Care Provider BRENDAN FLOR Attending Unavailable BRENDAN FLOR Admitting Unavailable LIZETHAMPGABI, LULU Magallanes Primary Care Unavailable TALAMPLULU ASHLEY Primary Care Unavailable PEDRO PATRICIA Referring Unavailable TALAMPGABI, LULU D Primary Care Unavailable EDGAR MONTEJO Attending Unavailable EDGAR MONTEJO Admitting Unavailable Talbot MARBLE WORKER.REHAB NURSE, Sudhir Unavailable Petra MARBLE WORKER.NUTRITION SERVICES WORKER, Pedro Unavailable Petra MARBLE WORKER.NUTRITION SERVICES WORKER, Pedro Unavailable Dr. Lulu Luciano MD Primary Care Provider Dr. Lulu Luciano MD Referring Provider Ward Cash Attending Provider Semaj Willis Attending Provider Faisal DAVIS, Dr. Liao Attending Provider Dr. Yanni Malone MD Referring Provider Dr. Petey Ordonez MD Attending Provider Dr. Osvaldo Freeman DO Referring Provider Pete GARCIA, Dr. Riley Attending Provider Petra MARBLE WORKER.NUTRITION SERVICES WORKER, Pedro Unavailable Ankita DAVIS, Dr. Lulu Magallanes Primary Care Provider [phone] Faisal DAVIS, Dr. Liao Attending Provider Faisal DAVIS, Dr. Liao Referring Provider Mery DAVIS, Dr. Angelo Attending Provider Pete GARCIA, Dr. Riley Referring Provider Pete DO, Dr. Riley Attending Provider Kaylie GARCIA, Dr. Dang Referring Provider [phone] Kaylie DO, Dr. Dang Emergency Provider [place] MARBLE WORKER.REHAB NURSE, Sudhir Unavailable LORRAINE GARCIA, STELLA Attending Unavailable ALEKSANDR DAVIS, DR JOSE Reid Consulting Unavailable ANKITA DAVIS, DR LAWSON Primary Care Unavailable AYESHA DAVIS, LUX Hebert Attending Unavail able ANKITA DAVIS, DR LAWSON Primary Care Unavailable ANKITA DAVIS, DR LAWSON Primary Care Unavailable SMILEY GOODMAN DO Attending Unavailable ANKITA DAVIS, DR LAWSON Primary Care Unavailable ALEKSANDR DAVIS, DR JOSE Reid Admitting Unavailable LUISA GARVEY MD Attending Unavailable SchwigerAlton Attending Unavailable SchwAlton musa Referring Unavailable Talampas, Lulu D Primary Care Unavailable Semaj Willis Attending Unavailable Talampas, Lulu D Primary Care Unavailable Talampas, Lulu D Referring Unavailable Semaj Willis Attending Unavailable Talampas, Lulu D Referring Unavailable Talampas, Lulu D Primary Care Unavailable Osvaldo Freeman Referring Unavailable Petey Ordonez Attending Unavailable Talampas, Lulu José Miguel Primary Care Unavailable Osvaldo Freeman Attending Unavailable Osvaldo Freeman Referring Unavailable Talampas, Lulu D Primary Care Unavailable Yanni Malone Attending Unavailable Yanni Malone Referring Unavailable Talampas, Lulu José Miguel Primary Care Unavailable JING VIRGEN Referring Unavailable TALAMPAS, LULU D Primary Care Unavailable ASHLEY HERNANDEZ Referring Unavailable TALAMPAS, LULU D Primary Care Unavailable ASHLEY HERNANDEZ Attending Unavailable TALAMPAS, LULU D Primary Care Unavailable TALAMPAS, LULU D Primary Care Unavailable TESTRAKE, CHARLIE Attending Unavailable TALAMPAS, LULU D Primary Care Unavailable TESTRAKE, CHARLIE Referring Unavailable TALAMPAS, LULU D Primary Care Unavailable TESTRAKE, CHARLIE Attending Unavailable TALAMPAS, LULU D Primary Care Unavailable TALAMPAS, LULU D Attending Unavailable TALAMPAS, LULU D Primary Care Unavailable TALAMPAS, LULU D Referring Unavailable TALAMPAS, LULU D Primary Care Unavailable IRASEMA BLOOD Attending Unavailable JING VIRGEN Referring Unavailable TALAMPAS, LULU D Primary Care Unavailable YANNI MALONE Attending Unavailable TALAMPAS, LULU D Primary Care Unavailable SUDHIR TALBOT Attending Unavailable TALAMPAS, LULU D Primary Care Unavailable PEDRO PATRICIA Referring Unavailable TALAMPAS, LULU D Primary Care Unavailable TESTRAKE, CHARLIE Attending Unavailable TALAMPAS, LULU D Primary Care Unavailable TALAMPAS, LULU D Referring Unavailable TALAMPAS, LULU D Primary Care Unavailable YANNI MALONE Attending Unavailable TALAMPAS, LULU D Primary Care Unavailable YANNI MALONE Referring Unavailable TALAMPAS, LULU D Primary Care Unavailable TESTRAKE, CHARLIE Attending Unavailable TALAMPAS, LULU D Primary Care Unavailable SUDHIR TALBOT Attending Unavailable TALAMPAS, LULU D Primary Care Unavailable TESTRAKE, CHARLIE Attending Unavailable TALAMPAS, LULU D Primary Care Unavailable TESTRAKE, CHARLIE Attending Unavailable TALAMPAS, LULU D Primary Care Unavailable SELF Referring Unavailable TALAMPAS, LULU D Primary Care Unavailable TALAMPAS, LULU D Attending Unavailable TALAMPAS, LULU D Primary Care Unavailable JING VIRGEN Attending Unavailable TALAMPAS, LULU D Primary Care Unavailable TESTRAKE, CHARLIE Attending Unavailable TESTRAKE, CHARLIE Referring Unavailable TALAMPAS, LULU D Primary Care Unavailable TESTRAKE, CHARLIE Attending Unavailable TALAMPAS, LULU D Primary Care Unavailable TESTRAKE, CHARLIE Referring Unavailable TALAMPAS, LULU D Primary Care Unavailable PEDRO PATRICIA Attending Unavailable TALAMPAS, LULU D Primary Care Unavailable PLOTPHOEBE, JING Referring Unavailable TALAMPAS, LULU D Primary Care Unavailable TESTRAKE, CHARLIE Attending Unavailable TALAMPAS, LULU D Primary Care Unavailable TESTRAKE, CHARLIE Attending Unavailable TESTRAKE, CHARLIE Referring Unavailable TALAMPAS, LULU D Primary Care Unavailable TALBOT, SUDHIR Attending Unavailable TALAMPAS, LULU D Primary Care Unavailable TALAMPAS, LULU D Referring Unavailable TALAMPAS, LULU D Primary Care Unavailable TESTRAKE, CHARLIE Attending Unavailable TALAMPAS, LULU D Primary Care Unavailable TALBOT, SUDHIR Referring Unavailable TALAMPAS, LULU D Primary Care Unavailable TALBOT, SUDHIR Attending Unavailable TALAMPAS, LULU D Primary Care Unavailable TALAMPAS, LULU D Primary Care Unavailable TALAMPAS, LULU D Primary Care Unavailable DAVID, ASHLEY Referring Unavailable DAVID, ASHLEY Attending Unavailable TALAMPAS, LULU D Primary Care Unavailable DAVID ASHLEY Attending Unavailable SELF Referring Unavailable TALAMPAS, LULU D Primary Care Unavailable DEEPAK MEJIA Referring Unavailable TALAMPAS, LULU D Primary Care Unavailable Allergies Allergy Classification Reported Allergen(s) Allergy Type Date of Onset Reaction(s) Facility (20 sources) Povidone-Iodine; Translations: [POVIDONE-IODINE ] Drug Allergy 5 [facility] (3 sources) soap; Translations: [soap] Allergy to substance 3 [facility] (20 sources) Sulfonamides (Antibiotic); Translations: [SULFA (SULFONAMIDE ANTIBIOTICS)] Drug Allergy 4 [facility] (2 sources) Sulfonamides (Antibiotic) Allergy to substance 5 [facility] (2 sources) Sulfonamide; Translations: [sulfa drugs] Drug allergy Eruption of skin (disorder) [facility] (1 source) Povidone-Iodine Drug Allergy 4 [facility] (1 source) Sulfonamides (Antibiotic) Drug allergy (disorder) 5 [facility] Medications Current Medications Medication Drug Class(es) Dates Sig (Normalized) Sig (Original) acetaminophen 500 mg oral tablet (20 sources) Start: 04-15-2024 take 2 tablets by mouth every eight hours as needed for pain Acetaminophen (Acetaminophen Extra Strength) 500 mg tablet Active 1000 mg PO EVERY 8 HOURS NEEDED as needed for fever or pain 60 April 15, 2024 1:40pm Start: 11-20-2011 take 2 tablets by [facility] once daily for pain acetaminophen (TYLENOL) 325 mg tablet Take 2 tablets by mouth once daily. for pain. 0 11/20/2011 Active Comment on above: Take 2 tablets by [facility] once daily. for pain. acetaminophen 325 mg / oxyCODONE hydrochloride 5 mg oral tablet (1 source) Opioid Agonist Start: take 1 tablet by mouth every six hours as needed for pain Oxycodone-Acetami nophen 5-325 mg tablet Active 1 {tbl} PO EVERY 6 HOURS NEEDED as needed for Pain 12 July 06, 2024 aspirin 81 mg delayed release oral tablet (20 sources) Platelet Aggregation Inhibitor, Nonsteroidal Anti-inflammatory Drug Start: End: 6 take 1 tablet by mouth once daily aspirin, enteric coated (ECOTRIN LOW STRENGTH) 81 mg EC tablet Indications: TIA (transient ischemic attack) Take 1 tablet by mouth once daily. 30 tablet 11 11/03/2024 11/03/2025 Active Start: 01-05-2016 aspirin 81 mg oral tablet (chewable) Dose : 81 mg = 1 tab(s), Oral, qDay Start Date: 01/05/16 Status: Ordered Start: 01-10-2015 End: 07-24-2022 take 1 tablet by mouth once daily Aspirin 81 MG tablet,chewable Discontinued 81 mg PO DAILY@0800 January 10, 2015 12:00am July 24, 2022 10:41am End: 10-24-2021 take 1 tablet by mouth once daily aspirin 325 mg tablet Take 325 mg by mouth once daily. 0 10/24/2021 Discontinued (Dosage adjustment) take 1 tablet by germán once daily aspirin (ASPIRIN 81) 81 MG EC tablet Take 81 mg by mouth daily 0 Active Comment on above: Take 325 mg by mouth once daily. Take 81 mg by mouth once daily. benzonatate 100 mg oral capsule (1 source) Non-narcotic Antitussive Start: 05-15-19 End: 05-23-19 Tessalon Perles 100 mg oral capsule Dose : 100 mg = 1 cap(s), Oral, TID, X 7 day(s), # 21 cap(s), 0 Refill(s), 05/22/22 4:45:00 EST, URI - Upper respiratory infection Start Date: 05/15/22 Stop Date: 05/22/22 Status: Ordered calcium carbonate 1250 mg / cholecalciferol 125 unt oral tablet (2 sources) Vitamin D Start: 04-06-19 Calcium Carbonate-Vitamin D3 500 mg-3.125 mcg (125 unit) tablet Active 1 {tbl} PO DAILY April 06, 2024 1:00am cephalexin 500 mg oral capsule (1 source) Cephalosporin Antibacterial Start: 07-07-19 End: 07-14-19 cephalexin 500 mg oral capsule Dose : 500 mg = 1 cap(s), Oral, QID, X 7 day(s), # 28 cap(s), 0 Refill(s), 07/13/22 7:49:00 EDT, 127.4 Start Date: 07/06/22 Stop Date: 07/13/22 Status: Ordered cholecalciferol 1.25 mg oral capsule (20 sources) Vitamin D Start: 10-21-19 End: 02-09-20 take 1 capsule by mouth every week cholecalciferol, Vitamin D3, (VITAMIN D3) 1,250 mcg (50,000 unit) cap capsule Indications: Vitamin D deficiency Take 1 capsule by mouth one time a week. 12 capsule 3 02/09/2024 Active Start: 06-25-2022 End: 10-18-2022 take 1 capsule by mouth every week cholecalciferol, Vitamin D3, (VITAMIN D3) 1,250 mcg (50,000 unit) cap capsule Indications: Vitamin D deficiency Take 1 capsule by mouth one time a week. 12 capsule 3 06/25/2022 10/18/2022 Discontinued Start: 05-26-2022 End: 06-22-2022 take 1 capsule by mouth every week cholecalciferol, Vitamin D3, (VITAMIN D3) 1,250 mcg (50,000 unit) cap capsule Indications: Vitamin D deficiency Take 1 capsule by mouth one time a week. 4 capsule 11 05/26/2022 06/22/2022 Discontinued Start: 03-28-2021 End: 05-24-2022 take 1 capsule by mouth every week cholecalciferol, Vitamin D3, (VITAMIN D3) 1,250 mcg (50,000 unit) cap capsule Indications: Vitamin D deficiency Take 1 capsule by mouth one time a week. 4 capsule 11 03/05/2022 05/24/2022 Discontinued Start: 04-03-2020 D3-50 (50,000 units) oral capsule Dose : 50,000 International_Unit = 1 cap(s), Oral, qWeek, # 100 cap(s), 0 Refill(s) Start Date: 04/03/20 Status: Ordered Comment on above: Take 1 capsule by [facility] one time a week. CPAP Machine MISC (6 sources) CPAP Machine MIS C by Does not apply route 0 Active D3-50 (50,000 units) oral capsule (11 sources) Start: 04-03-2020 D3-50 (50,000 units) oral capsule Dose : 50,000 International_Unit = 1 cap(s), Oral, qWeek, # 100 cap(s), 0 Refill(s) Start Date: 04/03/20 Status: Ordered Medication Dispense Status: Completed Quantity: 100.0 Unit: cap(s) Total Allowed Fills: 1 Fills Dispensed: 0 Start: 04-03-2020 D3-50 (50,000 units) oral capsule Dose : 50,000 International_Unit = 1 cap(s), Oral, qWeek, # 100 cap(s), 0 Refill(s) Start Date: 04/03/20 Status: Ordered doxycycline hyclate 100 mg oral capsule (12 sources) Tetracycline-class Drug Start: 03-25-2024 End: 03-31-2024 take 1 capsule by mouth every twelve hours doxycycline hyclate (VIBRAMYCIN) 100 mg capsule Take 1 capsule by mouth every 12 hours. 03/25/2024 03/31/2024 Active Start: 04-07-2023 End: 05-04-2023 take 1 capsule by mouth twice daily doxycycline hyclate (VIBRAMYCIN) 100 mg capsule Indications: Ulcer of toe of left foot, limited to breakdown of skin (HCC) Take 1 capsule by mouth two times a day. 14 capsule 0 04/07/2023 05/04/2023 Discontinued (Other) Comment on above: Take 1 capsule by [facility] two times a day. 84 hr estradiol 0.89533 mg/hr transdermal system (20 sources) Estrogen Start: 5 End: 6 apply 1 dose transdermal route two times weekly ALEXANDRA 0.05 mg/24 hr patch Indications: Hot flash not due to menopause apply 1 patch two times a week as directed 24 Patch 4 05/20/2024 05/20/2025 Active Start: 04-22-2024 End: 05-20-2024 estradiol (VIVELLE-DOT) 0.05 mg/24 hr patch Indications: Hot flash not due to menopause Apply 1 Patch as directed two times a week. TWICE WEEKLY 8 Patch 12 04/22/2024 05/20/2024 Discontinued Estradiol Patch 0.05 mg/24 hours twice weekly transdermal film, extended release (2 sources) Start: 10-29-2024 Estradiol Patc h 0.05 mg/24 hours twice weekly transdermal film, extended release 0.05 mg Dose = 1 patch(es), Transdermal, 2x/Wk, apply to skin, # 8 patch(es), 0 Refill(s) Start Date: 10/29/24 Status: Ordered Medication Dispense Status: Completed Quantity: 8.0 Unit: patch(es) Total Allowed Fills: 1 Fills Dispensed: 0 ferrous sulfate 300 mg oral tablet (20 sources) Start: 07-12-2014 take 300 mg by mouth once daily ferrous sulfate (IRON ORAL) Take 300 mg by mouth once daily. 07/12/2014 Active Start: 07-12-2014 End: 09-30-2022 take 1 tablet by mouth once daily ferrous sulfate 325 mg (65 mg iron) tablet Take 325 mg by mouth once daily. 07/12/2014 09/30/2022 Discontinued Comment on above: Take 325 mg by mouth once daily. fluticasone propionate 0.05 mg/actuat metered dose nasal spray (20 sources) Corticosteroid Start: 04-06-2024 Fluticasone Propionate 50 mcg/actuation spray,suspension Active 2 NMA INTRANASAL DAILY April 06, 2024 1:00am Start: 03-14-2024 End: 11-03-2024 take 2 spray(s) by mouth once daily fluticasone (FLONASE) 50 mcg/actuation nasal spray instill 2 spray into each nostril once daily Rinse mouth after use 48 mL 2 03/14/2024 11/03/2024 Discontinued Start: 02-09-2024 End: 03-14-2024 take 2 spray(s) by mouth once daily fluticasone (FLONASE) 50 mcg/actuation nasal spray Use 2 Sprays in each nostril once daily. Rinse mouth after use. 1 Each 2 02/09/2024 03/14/2024 Discontinued gabapentin 800 mg oral tablet (20 sources) Anti-epileptic Agent Start: 07-24-2022 End: 01-08-2025 take 1 tablet by mouth three times daily gabapentin (NEURONTIN) 800 mg tablet Indications: Neuropathy Take 1 tablet by mouth three times a day for 180 days. 90 tablet 5 07/12/2024 01/08/2025 Active Start: 07-15-2022 End: 03-22-2023 take 800 mg by mouth twice daily Gabapentin Active 800 MG PO TWICE A DAY July 23, 2022 11:00pm Comment on above: Take 1 tablet by germán twice daily for 90 days. Take 1 tablet by germán two times a day for 90 days. Take 1 tablet by germán three times a day for 90 days. Iron (2 sources) Start: 07-24-2022 Iron Active TA BLET PO July 23, 2022 11:00pm Start: 07-24-2022 Iron Active TA BLET PO July 24, 2022 12:00am Iron 50 mg iron Tablet (2 sources) Start: 07-24-2022 Iron 50 mg iro n Tablet Active 1 {tbl} PO DAILY July 24, 2022 12:00am Start: 07-24-2022 Iron 50 mg iro n Tablet Active 1 {tbl} PO DAILY July 23, 2022 11:00pm Magnesium (20 sources) Start: 07-24-2022 take 1 tablet by germán once daily Magnesium 250 mg tab Take 250 mg by mouth once daily. 07/24/2022 Active Start: 07-24-2022 take 1 tablet by germán once daily Magnesium 250 mg Tablet Active 250 mg PO DAILY July 24, 2022 12:00am Start: 07-24-2022 take 1 tablet by germán once daily Magnesium 250 mg Tablet Active 250 mg PO DAILY July 23, 2022 11:00pm Start: 07-24-2022 take 250 mg by mouth once umer y Magnesium Active 250 MG PO DAILY July 23, 2022 11:00pm Start: 07-24-2022 take 250 mg by mouth once umer y Magnesium Active 250 MG PO DAILY July 24, 2022 12:00am magnesium oxide 250 mg oral tablet (15 sources) Start: 10-29-2024 Magnesium 250 mg tablet Dose : 500 mg = 2 tab(s), Oral, qDay, 0 Refill(s) Start Date: 10/29/24 Status: Ordered Medication Dispense Status: Completed Total Allowed Fills: 1 Fills Dispensed: 0 Start: 02-22-2021 End: 10-24-2021 take 1 tablet by mouth twice daily magnesium oxide 400 mg magnesium tab Take 1 Dose by mouth twice daily. 0 02/22/2021 10/24/2021 Discontinued (Course of therapy completed) Start: 11-27-2020 End: 10-24-2021 take 1 tablet by mouth once daily magnesium oxide (MAGOX) 400 mg (241.3 mg magnesium) tablet Take 1 tablet by mouth once daily. 30 tablet 5 11/27/2020 10/24/2021 Discontinued Comment on above: Take 1 tablet by germán once daily. Take 1 Dose by mouth twice daily. meloxicam 15 mg oral tablet (20 sources) Nonsteroidal Anti-inflammatory Drug Start: End: take 1 tablet by mouth once daily at mealtime meloxicam (MOBIC) 15 mg tablet Indications: Chronic bilateral low back pain without sciatica Take 1 tablet by mouth once daily. With food. 30 tablet 5 06/27/2024 Active Start: 10-09-2023 End: 11-17-2023 take 1 tablet by mouth once daily at mealtime meloxicam (MOBIC) 7.5 mg tablet Indications: Lumbar pain , Skin sensation disturbance Take 1 tablet by mouth once daily. With food. 30 tablet 3 10/09/2023 11/17/2023 Discontinued MULTIVITAMIN ORAL (20 sources) Start: 06-17-2016 take 1 tablet by mouth once daily MULTIVITAMIN ORAL Take 1 tablet by mouth once daily. 06/17/2016 Active Start: 06-17-2016 MULTIVITAMIN O RAL Take by mouth. 06/17/2016 Active Multivitamin preparation (13 sources) Start: 06-17-2016 take 1 tablet by mouth once daily Multivitamin Dose = 1 tab(s), Oral, Daily, 0 Refill(s) Start Date: 06/17/16 Status: Ordered Medication Dispense Status: Completed Total Allowed Fills: 1 Fills Dispensed: 0 Start: 06-17-2016 take 1 tablet by germán once daily Multivitamin Dose = 1 tab(s), Oral, Daily, 0 Refill(s) Start Date: 06/17/16 Status: Ordered naproxen 500 mg oral tablet (2 sources) Nonsteroidal Anti-inflammatory Drug Start: 04-11-2022 End: 04-18-2022 naproxen 500 mg oral tablet Dose : 500 mg = 1 tab(s), Oral, BID, X 7 day(s), # 14 tab(s), 0 Refill(s), 04/18/22 6:43:00 EST Start Date: 04/11/22 Stop Date: 04/18/22 Status: Ordered NONFORMULARY (4 sources) NONFORMULARY 2 capsules daily [place]-Infinite Age vitamin 0 Active [place]-3 1000 mg oral capsule (6 sources) Start: 04-17-2022 [place]-3 1000 mg oral capsule Dose : 1,000 mg = 1 cap(s), Oral, QID, 0 Refill(s) Start Date: 04/17/22 Status: Ordered omeprazole 40 mg delayed release oral capsule (20 sources) Proton Pump Inhibitor Start: 06-27-2024 End: 07-29-2024 take 1 capsule by mouth once daily omeprazole (PRILOSEC) 40 mg capsule take 1 capsule by mouth once daily 90 capsule 5 07/29/2024 Active Start: 11-02-2023 End: 06-25-2024 take 1 capsule by mouth once daily omeprazole (PRILOSEC) 40 mg capsule Take 1 capsule by mouth once daily. 30 capsule 5 06/27/2024 Active Start: 04-06-2023 End: 10-30-2023 take 1 capsule by mouth once daily omeprazole (PRILOSEC) 40 mg capsule Take 1 capsule by mouth once daily. 30 capsule 5 04/06/2023 10/30/2023 Discontinued Start: 09-30-2022 End: 03-11-2023 take 1 capsule by mouth once daily omeprazole (PRILOSEC) 40 mg capsule take 1 capsule by mouth once daily 30 capsule 5 12/16/2022 03/11/2023 Discontinued Start: 06-25-2022 End: 10-28-2022 take 1 capsule by mouth once daily before breakfast omeprazole (PRILOSEC) 20 mg capsule Take 1 capsule by mouth daily before breakfast. 1/2 hr before meal. 90 capsule 1 06/25/2022 10/28/2022 Discontinued Start: 04-17-2022 take 1 dose by mouth once daily omeprazole Dose : 40 mg =, Oral, qDay, 0 Refill(s) Start Date: 04/17/22 Status: Ordered Medication Dispense Status: Completed Total Allowed Fills: 1 Fills Dispensed: 0 Start: 04-17-2022 take 1 dose by mouth once daily omeprazole Dose : 20 mg =, Oral, qDay, 0 Refill(s) Start Date: 04/17/22 Status: Ordered Start: 12-28-2021 End: 06-25-2023 take 1 tablet by mouth once daily Omeprazole Magnesium (PRILOSEC OTC) 20 mg tablet Take 1 tablet by mouth once daily. 90 tablet 3 02/04/2022 05/24/2022 Discontinued Start: 03-28-2021 End: 10-24-2021 take 1 capsule by mouth once daily omeprazole (PRILOSEC) 40 mg capsule Indications: Gastroesophageal reflux disease without esophagitis , LUQ abdominal pain , Epigastric pain Take 1 capsule by mouth once daily. 90 capsule 3 03/28/2021 10/24/2021 Discontinued (Course of therapy completed) Start: 11-29-2015 take 1 tablet by germán th once daily Omeprazole Magnesium (PRILOSEC OTC) 20 mg tablet Take 20 mg by mouth once daily. 0 11/29/2015 Active Comment on above: Take 1 capsule by mo ut once daily. Take 20 mg by mouth once daily. Take 1 tablet by germán th once daily. Take 1 capsule by mo uth daily before breakfast. 1/2 hr before meal. take 1 capsule by mo uth once daily Pediatric Multivitamins-Fl (MULTI VIT/FL PO) (1 source) Pediatric Multivitamins-Fl (MULTI VIT/FL PO) Take by mouth 0 Active polyethylene glycol 3350 703101 mg / potassium chloride 2970 mg / sodium bicarbonate 6740 mg / sodium chloride 5860 mg / sodium sulfate 95638 mg powder for oral solution (2 sources) Osmotic Laxative Start: 07-17-2022 End: 07-17-2022 peg 3350-Electrolytes (GOLYTELY) 236-22.74-6.74 -5.86 gram suspension Indications: Family history of colon cancer in father , Screening for colon cancer Take 4,000 mL by mouth one time only for 1 dose. Refer to printed prep instructions from your provider. 4000 mL 0 07/17/2022 07/17/2022 Active Start: 02-25-2021 End: 06-25-2021 peg 3350-Electrolytes (GOLYT RICK) 236-22.74-6.74 -5.86 gram suspension Indications: Family history of colon cancer Refer to printed prep instructions from your provider. 4000 mL 0 02/25/2021 06/25/2021 Discontinued (Other) Comment on above: Refer to printed pre p instructions from your provider. Take 4,000 mL by germán th one time only for 1 dose. Refer to printed prep instructions from your provider. rosuvastatin calcium 5 mg oral tablet (20 sources) HMG-CoA Reductase Inhibitor Start: End: take 1 tablet by mouth once daily rosuvastatin (CRESTOR) 5 mg tablet Indications: Type 2 diabetes mellitus without complication, without long-term current use of insulin (HCC) take 1 tablet by mouth once daily 90 tablet 3 06/28/2024 Active semaglutide (OZEMPIC) 2 mg/dose (8 mg/3 mL) pen injector (20 sources) Start: inject 2 mg by subcutaneous injection every week semaglutide (OZEMPIC) 2 mg/dose (8 mg/3 mL) pen injector Indications: DM (diabetes mellitus), type 2 with neurological complications (HCC) Inject 2 mg subcutaneously one time a week. 4 each 1 09/16/2024 Active Start: 06-27-2024 End: 09-16-2024 inject 2 mg by subcutaneous injection every week semaglutide (OZEMPIC) 2 mg/dose (8 mg/3 mL) pen injector Indications: Type 2 diabetes mellitus without complication, without long-term current use of insulin (HCC) Inject 2 mg subcutaneously one time a week. 4 each 1 06/27/2024 09/16/2024 Discontinued Start: 06-27-2024 inject 2 mg by subcu taneous injection every week semaglutide (OZEMPIC) 2 mg/dose (8 mg/3 mL) pen injector Indications: Type 2 diabetes mellitus without complication, without long-term current use of insulin (HCC) Inject 2 mg subcutaneously one time a week. 4 each 1 06/27/2024 Active Start: 03-31-2024 End: 06-25-2024 inject 2 mg by subcutaneous injection every week semaglutide (OZEMPIC) 2 mg/dose (8 mg/3 mL) pen injector Indications: Type 2 diabetes mellitus without complication, without long-term current use of insulin (HCC) Inject 2 mg subcutaneously one time a week. 4 Each 1 03/31/2024 06/25/2024 Discontinued Start: 03-31-2024 inject 2 mg by subcu taneous injection every week semaglutide (OZEMPIC) 2 mg/dose (8 mg/3 mL) pen injector Indications: Type 2 diabetes mellitus without complication, without long-term current use of insulin (HCC) Inject 2 mg subcutaneously one time a week. 4 Each 03/31/2024 Active Start: 01-25-2024 End: 03-31-2024 inject 2 mg by subcutaneous injection every week semaglutide (OZEMPIC) 2 mg/dose (8 mg/3 mL) pen injector Indications: Type 2 diabetes mellitus without complication, without long-term current use of insulin (HCC) Inject 2 mg subcutaneously one time a week. 4 Each 1 01/25/2024 03/31/2024 Discontinued Start: 01-25-2024 inject 2 mg by subcu taneous injection every week semaglutide (OZEMPIC) 2 mg/dose (8 mg/3 mL) pen injector Indications: Type 2 diabetes mellitus without complication, without long-term current use of insulin (HCC) Inject 2 mg subcutaneously one time a week. 4 Each 1 01/25/2024 Active Start: 11-17-2023 End: 01-25-2024 inject 2 mg by subcutaneous injection every week semaglutide (OZEMPIC) 2 mg/dose (8 mg/3 mL) pen injector Indications: Type 2 diabetes mellitus without complication, without long-term current use of insulin (HCC) Inject 2 mg subcutaneously one time a week. 4 Each 1 11/17/2023 01/25/2024 Discontinued Start: 11-17-2023 inject 2 mg by subcu taneous injection every week semaglutide (OZEMPIC) 2 mg/dose (8 mg/3 mL) pen injector Indications: Type 2 diabetes mellitus without complication, without long-term current use of insulin (HCC) Inject 2 mg subcutaneously one time a week. 4 Each 11/17/2023 Active Start: 11-17-2023 End: 11-17-2023 inject 2 mg by subcutaneous injection every week semaglutide (OZEMPIC) 2 mg/dose (8 mg/3 mL) pen injector Indications: Type 2 diabetes mellitus without complication, without long-term current use of insulin (HCC) Inject 2 mg subcutaneously one time a week. 4 Each 11/17/2023 11/17/2023 Discontinued Start: 10-07-2023 End: 11-16-2023 inject 2 mg by subcutaneous injection every week semaglutide (OZEMPIC) 2 mg/dose (8 mg/3 mL) pen injector Indications: Type 2 diabetes mellitus without complication, without long-term current use of insulin (HCC) Inject 2 mg subcutaneously one time a week. 4 Each 1 10/07/2023 11/16/2023 Discontinued Start: 10-07-2023 inject 2 mg by subcu taneous injection every week semaglutide (OZEMPIC) 2 mg/dose (8 mg/3 mL) pen injector Indications: Type 2 diabetes mellitus without complication, without long-term current use of insulin (HCC) Inject 2 mg subcutaneously one time a week. 4 Each 10/07/2023 Active Start: 08-12-2023 End: 10-07-2023 inject 2 mg by subcutaneous injection every week semaglutide (OZEMPIC) 2 mg/dose (8 mg/3 mL) pen injector Indications: Type 2 diabetes mellitus without complication, without long-term current use of insulin (HCC) Inject 2 mg subcutaneously one time a week. 4 Each 08/12/2023 10/07/2023 Discontinued Start: 08-12-2023 inject 2 mg by subcu taneous injection every week semaglutide (OZEMPIC) 2 mg/dose (8 mg/3 mL) pen injector Indications: Type 2 diabetes mellitus without complication, without long-term current use of insulin (HCC) Inject 2 mg subcutaneously one time a week. 4 Each 08/12/2023 Active Semaglutide (Ozempic) 2 mg/d ose (8 mg/3 mL) pen injector (2 sources) Start: 04-06-2024 Semaglutide (O zempic) 2 mg/dose (8 mg/3 mL) pen injector Active 2 mg SC CERDA April 06, 2024 1:00am Start: 04-06-2024 Semaglutide (O zempic) 2 mg/dose (8 mg/3 mL) pen injector Active 2 mg SC CERDA April 06, 2024 12:00am sertraline 100 mg oral tablet (20 sources) Serotonin Reuptake Inhibitor Start: 09-16-2024 take 1 tablet by mouth once daily sertraline (ZOLOFT) 100 mg tablet Indications: Moderate recurrent major depression (HCC) Take 1 tablet by mouth once daily. 90 tablet 3 09/16/2024 Active Start: 12-22-2022 End: 09-16-2024 take 1 tablet by mouth once daily sertraline (ZOLOFT) 50 mg tablet Indications: Depression, recurrent Take 1 tablet by mouth once daily. 90 tablet 3 02/09/2024 09/16/2024 Discontinued Comment on above: Take 1 tablet by germán th once daily. Start with half a pill x1 week then go to a whole pill day Take 1 tablet by germán th once daily. take 1 tablet by germán th once daily solifenacin succinate 5 mg oral tablet (8 sources) Cholinergic Muscarinic Antagonist Start: End: take 1 tablet by mouth once daily solifenacin (VESICARE) 5 mg tablet Indications: Genitourinary syndrome of menopause Take 1 tablet by mouth once daily. 30 tablet 11 11/03/2024 11/03/2025 Active tiZANidine 2 mg oral capsule (20 sources) Central alpha-2 Adrenergic Agonist Start: 5 tiZANidine 2 mg oral tablet Dose : 4 mg = 2 tab(s), Oral, q8h, PRN Pain, 0 Refill(s) Start Date: 10/29/24 Status: Ordered Medication Dispense Status: Completed Total Allowed Fills: 1 Fills Dispensed: 0 Start: 03-07-2024 End: 11-03-2024 take 1 capsule by mouth every eight hours as needed tiZANidine HCl (ZANAFLEX) 2 mg capsule Indications: Acute intractable headache, unspecified headache type , Chronic bilateral low back pain without sciatica Take 2 capsules by mouth every 8 hours as needed. 120 capsule 5 11/03/2024 Active Start: 05-04-2023 End: 03-07-2024 take 1 tablet by mouth every eight hours as needed tiZANidine (ZANAFLEX) 4 mg tablet Indications: Chronic bilateral low back pain without sciatica Take 1 tablet by mouth every 8 hours as needed. 60 tablet 5 02/09/2024 03/07/2024 Discontinued Start: 03-10-2023 End: 05-01-2023 take 1 tablet by mouth every eight hours tiZANidine (ZANAFLEX) 4 mg tablet Indications: Acute bilateral low back pain without sciatica take 1 tablet by mouth every 8 hours if needed 60 tablet 03/10/2023 05/01/2023 Discontinued Start: 01-26-2023 End: 02-20-2023 take 1 tablet by mouth every eight hours as needed tiZANidine (ZANAFLEX) 4 mg tablet Indications: Acute bilateral low back pain without sciatica Take 1 tablet by mouth every 8 hours as needed. 60 tablet 01/26/2023 02/20/2023 Discontinued Comment on above: Take 1 tablet by germán th every 8 hours as needed. take 1 tablet by germán th every 8 hours if needed UNABLE TO FIND (4 sources) UNABLE TO FIND 5 00 mg daily maitake mushroom 0 Active Completed/Discontinued Medications Medication Drug Class(es) Dates Sig (Normalized) Sig (Original) 0.25 MG, 0.5 MG Dose 3 ML semaglutide 0.68 MG/ML Pen Injector (2 sources) Start: 10-29-2024 inject 0.5 mg by subcutaneous injection every week semaglutide 2 mg/3 mL (0.25 mg or 0.5 mg dose) subcutaneous solution Dose : 0.25 mg =, Subcutaneous, qWeek, rotate injection sites, # 1 EA, 0 Refill(s), generic OZEMPIC Start Date: 10/29/24 Status: Ordered Medication Dispense Status: Completed Quantity: 1.0 Unit: EA Total Allowed Fills: 1 Fills Dispensed: 0 acetaminophen 325 mg / HYDROcodone bitartrate 5 mg oral tablet (7 sources) Opioid Agonist Start: 11-27-2023 End: 12-04-2023 take 1 tablet by mouth every six hours as needed for pain HYDROcodone-acetami nophen (NORCO) 5-325 mg per tablet Indications: Ulnar neuropathy at elbow of left upper extremity Take 1 tablet by mouth every 6 hours as needed for pain for up to 7 days. 15 tablet 11/27/2023 12/04/2023 Start: 10-17-2022 End: 10-24-2022 take 1 tablet by mouth three times daily as needed for pain HYDROcodone-acetaminophen (NORCO) 5-325 mg per tablet Indications: Acute left-sided low back pain with left-sided sciatica , Sacroiliac joint pain Take 1 tablet by mouth three times daily as needed for pain for up to 7 days. 21 tablet 0 10/17/2022 10/24/2022 Comment on above: Take 1 tablet by germán th three times daily as needed for pain for up to 7 days. ALPRAZolam 0.5 mg oral tablet (5 sources) Benzodiazepine Start: End: ALPRAZolam (XANAX) 0.5 mg tablet Indications: Claustrophobia Take an hour prior to MRI. May repeat dose prior to MRI anxiety not adequately controlled. 2 tablet 0 04/23/2023 04/29/2023 Comment on above: Take an hour prior t o MRI. May repeat dose prior to MRI anxiety not adequately controlled. amitriptyline hydrochloride 10 mg oral tablet (4 sources) Tricyclic Antidepressant Start: End: take 1 tablet by mouth once daily at bedtime amitriptyline (ELAVIL) 10 mg tablet Indications: Depression, recurrent (HCC) , Neuropathy , Sleep disorder Take 1 tablet by mouth daily at bedtime. 30 tablet 2 01/26/2023 04/03/2023 Discontinued Comment on above: Take 1 tablet by germán th daily at bedtime. amoxicillin 875 mg / clavulanate 125 mg oral tablet (8 sources) Penicillin-class Antibacterial Start: End: take 1 tablet by mouth twice daily at mealtime amoxicillin-clavulana te potassium (AUGMENTIN) 875-125 mg per tablet Indications: Non-recurrent acute serous otitis media of both ears Take 1 tablet by mouth two times a day for 7 days. Take with food 14 tablet 02/05/2024 02/12/2024 Start: 07-28-2022 End: 08-07-2022 Amoxicillin-Pot Clavulanate 875-125 mg tablet Discontinued 1 {tbl} PO Q12H 20 July 28, 2022 12:00am August 06, 2022 12:00am August 07, 2022 12:04am Start: 07-28-2022 End: 08-07-2022 take 1 tablet by mouth every twelve hours Amoxicillin-Pot Clavulanate Discontinued 1 TABLET PO Q12H 20 July 27, 2022 11:00pm August 06, 2022 11:04pm azithromycin 250 mg oral tablet (2 sources) Macrolide Antimicrobial Start: 01-27-2024 End: 02-25-2024 Azithromycin 250 mg tablet Discontinued 0 PO .COMPLEX 6 January 27, 2024 1:00am February 25, 2024 11:51am For 250 mg dose pack: take 500 mg today (day 1), then 250 mg for 4 days (days 2-5) PO betamethasone 3 mg/ml / betamethasone acetate 3 mg/ml injectable suspension (2 sources) Corticosteroid Start: 06-08-2023 End: 06-08-2023 betamethasone acetate-betamethasone sodium phosphate 3 mg injection (CELESTONE) betamethasone 0.5 mg/ml / clotrimazole 10 mg/ml topical cream (2 sources) Azole Antifungal, Corticosteroid Start: 11-20-2023 End: 11-27-2023 clotrimazole-betameth asone (LOTRISONE) cream Apply 1 application to affected area two times a day for 7 days. 15 g 11/20/2023 11/27/2023 Blood-Glucose Meter (20 sources) Start: 03-05-2022 End: 03-22-2022 Blood-Glucose Meter Indications: Hepatic steatosis , Type 2 diabetes mellitus without complication, without long-term current use of insulin (HCC) Dispense 1 kit Test blood sugar(s) once daily. Dx: E11.9. Type 2 diabetes Insulin: No 1 Each 03/05/2022 03/22/2022 Discontinued Start: 03-05-2022 Blood-Glucose Meter Indications: Hepatic steatosis , Type 2 diabetes mellitus without complication, without long-term current use of insulin (HCC) Dispense 1 kit Test blood sugar(s) once daily. Dx: E11.9. Type 2 diabetes Insulin: No 1 Each 0 03/05/2022 Active Start: 10-26-2020 End: 03-05-2022 Blood-Glucose Meter Indicati ons: Hepatic steatosis , Type 2 diabetes mellitus without complication, without long-term current use of insulin (HCC) Dispense 1 kit Test blood sugar(s) once daily. Dx: E11.9. Type 2 diabetes Insulin: No 1 Each 0 10/26/2020 03/05/2022 Discontinued Start: 10-26-2020 Blood-Glucose Meter Indications: Hepatic steatosis , Type 2 diabetes mellitus without complication, without long-term current use of insulin (HCC) Dispense 1 kit Test blood sugar(s) once daily. Dx: E11.9. Type 2 diabetes Insulin: No 1 Each 0 10/26/2020 Active Comment on above: Dispense 1 kit Test blood sugar(s) once daily. Dx: E11.9. Type 2 diabetes Insulin: No 12 hr buPROPion hydrochloride 200 mg extended release oral tablet (20 sources) Aminoketone Start: End: take 1 tablet by mouth twice daily buPROPion SR (WELLBUTRIN SR) 200 mg 12 hr tablet Indications: Obesity (BMI 30-39.9) , Depression, recurrent (HCC) Take 1 tablet by mouth twice daily. 60 tablet 5 10/28/2022 04/03/2023 Discontinued Start: 09-30-2022 End: 10-28-2022 take 1 tablet by mouth twice daily buPROPion SR (WELLBUTRIN SR) 150 mg 12 hr tablet Indications: Obesity (BMI 30-39.9) , Depression, recurrent (HCC) Take 1 tablet by mouth twice daily. 60 tablet 2 09/30/2022 10/28/2022 Discontinued Comment on above: Take 1 tablet by germán th twice daily. Calcium Phos,Dibas-Vitamin D3 (Vitamin D (With Calcium)) 77-400 mg-unit Tablet (4 sources) Start: 07-24-2022 End: 04-06-2024 Calcium Phos,Dibas-Vitamin D3 (Vitamin D (With Calcium)) 77-400 mg-unit Tablet Discontinued {tbl} PO July 24, 2022 12:00am April 06, 2024 3:53pm Start: 07-24-2022 End: 04-06-2024 Calcium Phos,Dibas-Vitamin D 3 (Vitamin D (With Calcium)) 77-400 mg-unit Tablet Discontinued {tbl} PO July 23, 2022 11:00pm April 06, 2024 2:53pm Start: 07-24-2022 take 1 tablet by mouth once Ca lcium Phos,Dibas-Vitamin D3 (Vitamin D (With Calcium)) 77-400 mg-unit Tablet Active TABLET PO July 23, 2022 11:00pm Start: 07-24-2022 take 1 tablet by mouth once Ca lcium Phos,Dibas-Vitamin D3 (Vitamin D (With Calcium)) 77-400 mg-unit Tablet Active TABLET PO July 24, 2022 12:00am ciprofloxacin 500 mg oral tablet (4 sources) Quinolone Antimicrobial Start: 09-26-2024 End: 10-03-2024 take 1 tablet by mouth twice daily ciprofloxacin HCl (CIPRO) 500 mg tablet Take 1 tablet by mouth two times a day for 7 days. 14 tablet 09/26/2024 10/03/2024 cyclobenzaprine hydrochloride 10 mg oral tablet (17 sources) Muscle Relaxant Start: 10-17-2022 End: 10-27-2022 take 1 tablet by mouth every eight hours as needed cyclobenzaprine (FLEXERIL) 10 mg tablet Take 1 tablet by mouth three times daily as needed for muscle spasm for up to 10 days. 30 tablet 0 10/17/2022 10/27/2022 Start: 06-24-2022 End: 07-14-2022 take 1 tablet by mouth three times daily as needed for muscle spasms cyclobenzaprine (FLEXERIL) 10 mg tablet Indications: Acute pain of left shoulder , Pain of left clavicle Take 1 tablet by mouth three times daily as needed for muscle spasm for up to 10 days. 30 tablet 0 07/04/2022 07/14/2022 Start: 04-25-2022 End: 06-12-2022 take 1 tablet by mouth three times daily as needed for muscle spasms cyclobenzaprine (FLEXERIL) 10 mg tablet Indications: Acute pain of left shoulder , Pain of left clavicle Take 1 tablet by mouth three times daily as needed for muscle spasm for up to 10 days. 30 tablet 0 06/02/2022 06/12/2022 Active Start: 04-11-2022 End: 04-18-2022 cyclobenzaprine 10 mg oral t ablet Dose : 10 mg = 1 tab(s), Oral, TID, X 7 day(s), # 21 tab(s), 0 Refill(s), 04/18/22 6:43:00 EST Start Date: 04/11/22 Stop Date: 04/18/22 Status: Ordered Comment on above: Take 1 tablet by germán th three times daily as needed for muscle spasm for up to 10 days. diazePAM 5 mg oral tablet (4 sources) Benzodiazepine Start: End: diazePAM (VALIUM) 5 mg tablet Indications: Situational anxiety Take first pill 30 minutes to 1 hour before procedure and then second pill as need leading up to procedure for anxiety. Can repeat the sequence once if further imaging/procedures are needed in follow up. Patient should start on December 01, 2023. 4 tablet 12/01/2023 12/04/2023 diclofenac sodium 0.01 mg/mg topical gel (8 sources) Nonsteroidal Anti-inflammatory Drug Start: End: apply 4 g topically four times daily diclofenac (VOLTAREN ARTHRITIS PAIN) 1 % topical gel Indications: Acute pain of right shoulder Apply 4 g to affected area four times daily. 350 g 2 12/22/2022 04/03/2023 Discontinued Comment on above: Apply 4 g to affecte d area four times daily. 0.5 ml dulaglutide 3 mg/ml auto-injector (20 sources) GLP-1 Receptor Agonist Start: 021 End: inject 1.5 mg by subcutaneous injection every week dulaglutide (TRULICITY) 1.5 mg/0.5 mL pen injector Inject 1.5 mg subcutaneously one time a week. 4 Each 3 03/05/2022 05/26/2022 Discontinued Comment on above: Inject 1.5 mg subcut aneously one time a week. dulaglutide (TRULICITY) 3 mg/0.5 mL pen injector (9 sources) Start: End: inject 3 mg by subcutaneous injection every week dulaglutide (TRULICITY) 3 mg/0.5 mL pen injector Inject 3 mg subcutaneously one time a week. 4 Each 2 07/15/2022 09/30/2022 Discontinued Start: 07-15-2022 inject 3 mg by subcu taneous injection every week dulaglutide (TRULICITY) 3 mg/0.5 mL pen injector Inject 3 mg subcutaneously one time a week. 4 Each 2 07/15/2022 Active Comment on above: Inject 3 mg subcutan eously one time a week. dulaglutide (TRULICITY) 4.5 mg/0.5 mL pen injector (20 sources) Start: 06-08-2023 End: 08-12-2023 dulaglutide (TRULICITY) 4.5 mg/0.5 mL pen injector Indications: DM (diabetes mellitus), type 2 with neurological complications (HCC) , Obesity (BMI 30-39.9) Inject 4.5 mg subcutaneously one time a week. 4 Each 3 06/08/2023 08/12/2023 Discontinued Start: 06-08-2023 dulaglutide (T RULICITY) 4.5 mg/0.5 mL pen injector Indications: DM (diabetes mellitus), type 2 with neurological complications (HCC) , Obesity (BMI 30-39.9) Inject 4.5 mg subcutaneously one time a week. 4 Each 3 06/08/2023 Active Start: 04-06-2023 End: 06-06-2023 dulaglutide (TRULICITY) 4.5 mg/0.5 mL pen injector Indications: DM (diabetes mellitus), type 2 with neurological complications (HCC) , Obesity (BMI 30-39.9) Inject 4.5 mg subcutaneously one time a week. 4 Each 3 04/06/2023 06/06/2023 Discontinued Start: 04-06-2023 dulaglutide (T RULICITY) 4.5 mg/0.5 mL pen injector Indications: DM (diabetes mellitus), type 2 with neurological complications (HCC) , Obesity (BMI 30-39.9) Inject 4.5 mg subcutaneously one time a week. 4 Each 3 04/06/2023 Active Start: 12-02-2022 End: 03-11-2023 dulaglutide (TRULICITY) 4.5 mg/0.5 mL pen injector Indications: DM (diabetes mellitus), type 2 with neurological complications (HCC) , Obesity (BMI 30-39.9) Inject 4.5 mg subcutaneously one time a week. 4 Each 3 12/02/2022 03/11/2023 Discontinued Start: 12-02-2022 dulaglutide (T RULICITY) 4.5 mg/0.5 mL pen injector Indications: DM (diabetes mellitus), type 2 with neurological complications (HCC) , Obesity (BMI 30-39.9) Inject 4.5 mg subcutaneously one time a week. 4 Each 3 12/02/2022 Active Start: 09-30-2022 End: 12-02-2022 dulaglutide (TRULICITY) 4.5 mg/0.5 mL pen injector Indications: DM (diabetes mellitus), type 2 with neurological complications (HCC) , Obesity (BMI 30-39.9) Inject 4.5 mg subcutaneously one time a week. 4 Each 3 09/30/2022 12/02/2022 Discontinued Start: 09-30-2022 dulaglutide (T RULICITY) 4.5 mg/0.5 mL pen injector Indications: DM (diabetes mellitus), type 2 with neurological complications (HCC) , Obesity (BMI 30-39.9) Inject 4.5 mg subcutaneously one time a week. 4 Each 3 09/30/2022 Active Comment on above: Inject 4.5 mg subcut aneously one time a week. DULoxetine 60 mg delayed release oral capsule (20 sources) Serotonin and Norepinephrine Reuptake Inhibitor Start: 6 take 1 dose by mouth once daily DULoxetine Dose : 80 mg =, Oral, qDay, 0 Refill(s) Start Date: 11/29/15 Status: Ordered Start: 01-10-2015 End: 09-30-2022 take 2 capsules by mouth once daily DULoxetine (CYMBALTA) 60 mg capsule Take 2 capsules by mouth once daily. 180 capsule 3 06/25/2022 09/30/2022 Discontinued (Adjust Sig - Block E-Cancel) Start: 01-10-2015 End: 10-28-2022 take 60 mg by mouth once daily Duloxetine Active 60 MG PO DAILY January 09, 2015 11:00pm take 2 capsules by m outh once daily for depression DULOXETINE HCL PO Take 60 mg by mouth daily Take 2 capsules once a day for depression 0 Active Comment on above: Take 2 capsules by m outh once daily. Prescribed by Dr. Schmidt Take 2 capsules by m outh once daily. Take 60 mg by mouth once daily. 2 capsules daily Take 1 capsule by mo wyh once daily. ergocalciferol 1.25 mg oral capsule (20 sources) Provitamin D2 Compound End: 07-15-2022 ergocalciferol 50,000 unit capsule (VITAMIN D2, DRISDOL) Take 50,000 Units by mouth. 07/15/2022 Discontinued take 1.25 mg by mouth every week vitamin D (ERGOCALCIFEROL) 1.25 MG (60754 UT) CAPS capsule Take 50,000 Units by mouth once a week 0 Active Comment on above: Take 50,000 Units by mouth. esomeprazole 20 mg delayed release oral capsule (4 sources) Proton Pump Inhibitor Start: 01-11-20 End: 07-25-19 take 1 capsule by mouth three times daily Esomeprazole Magnesium (Nexium 24hr) 22.3 MG capsule,delayed release(DR/EC) Discontinued 22.3 mg PO THREE TIMES A DAY January 10, 2015 12:00am July 24, 2022 10:42am ferrous gluconate 324 mg oral tablet (10 sources) Start: 03-26-19 End: 10-25-19 take 1 tablet by mouth twice daily at mealtime Ferrous Gluconate (FERGON) 324 mg (38 mg iron) tablet Indications: Anemia, unspecified type Take 1 tablet by mouth twice daily with meals. 60 tablet 5 10/17/2021 10/24/2021 Discontinued (Course of therapy completed) Comment on above: Take 1 tablet by germán twice daily with meals. ibuprofen 600 mg oral tablet (20 sources) Nonsteroidal Anti-inflammatory Drug Start: 04-15-19 End: 05-19-19 take 1 tablet by mouth every six hours as needed for pain Ibuprofen 600 mg tablet Discontinued 600 mg PO EVERY 6 HOURS as needed for Pain 60 April 15, 2024 1:00am May 19, 2024 9:59am Start: 10-14-2022 End: 03-11-2023 take 1 tablet by mouth every eight hours as needed for pain ibuprofen (MOTRIN) 800 mg tablet Indications: Chronic right shoulder pain Take 1 tablet by mouth every 8 hours as needed for pain. 80 tablet 2 10/14/2022 03/11/2023 Discontinued Start: 07-24-2022 End: 04-06-2024 take 2 tablets by mouth every twelve hours as needed for headache Ibuprofen 400 mg Tablet Discontinued 800 mg PO EVERY 12 HOURS NEEDED as needed for Headache July 24, 2022 12:00am April 06, 2024 3:52pm Start: 07-24-2022 take 800 mg by mouth every twelve hours as needed Ibuprofen Active 800 MG PO EVERY 12 HOURS NEEDED July 23, 2022 11:00pm Start: 06-24-2022 End: 09-17-2022 take 1 tablet by mouth every eight hours as needed for pain ibuprofen (MOTRIN) 800 mg tablet Indications: Chronic right shoulder pain Take 1 tablet by mouth every 8 hours as needed for pain. 80 tablet 2 06/24/2022 09/17/2022 Discontinued Start: 02-01-2021 End: 06-22-2022 take 1 tablet by mouth every eight hours as needed for pain ibuprofen (MOTRIN) 800 mg tablet Indications: Chronic right shoulder pain Take 1 tablet by mouth every 8 hours as needed for pain. 80 tablet 2 03/05/2022 06/02/2022 Discontinued Start: 02-01-2021 ibuprofen 800 mg oral tablet Dose : 800 mg = 1 tab(s), Oral, TID, PRN as needed for pain, # 30 tab(s), 0 Refill(s) Start Date: 02/01/21 Status: Ordered Comment on above: Take 1 tablet by [facility] every 8 hours as needed for pain. 2 ml ketorolac tromethamine 30 mg/ml injection (2 sources) Nonsteroidal Anti-inflammatory Drug, Cyclooxygenase Inhibitor Start: 11-03-2024 End: 11-03-2024 keTORolac 60 mg injection (Toradol) Start: 11-03-2024 End: 11-03-2024 60 mg, INTRAMUSCULAR, ONCE, 1 dose, On Page 11/03/24 at 1230, Ketorolac (Toradol) is indicated for the short-term (up to 5 days) management of moderately severe acute pain. Continuation of ketorolac (Toradol) beyond 5 days increases the risk of developing serious adverse events. Please verify the duration of therapy for ketorolac (Toradol). lactobacillus combination no .4 (PROBIOTIC) 3 billion cell cap (11 sources) Start: 10-18-2021 End: 10-24-2021 lactobacillus combination no .4 (PROBIOTIC) 3 billion cell cap Take 1 capsule by mouth once daily. 30 capsule 5 10/18/2021 10/24/2021 Discontinued Start: 10-18-2021 End: 11-17-2021 lactobacillus combination no .4 (PROBIOTIC) 3 billion cell cap Take 1 capsule by mouth once daily. 30 capsule 5 10/18/2021 11/17/2021 Active Start: 11-07-2020 End: 10-17-2021 lactobacillus combination no .4 (PROBIOTIC) 3 billion cell cap Take 1 capsule by mouth once daily. 30 capsule 5 11/07/2020 10/17/2021 Discontinued Start: 11-07-2020 lactobacillus combination no.4 (PROBIOTIC) 3 billion cell cap Take 1 capsule by mouth once daily. 30 capsule 5 11/07/2020 Active Comment on above: Take 1 capsule by [facility] once daily. 10 ml lidocaine hydrochloride 10 mg/ml injection (2 sources) Antiarrhythmic, Amide Local Anesthetic Start: 06-08-2023 End: 06-08-2023 lidocaine (PF) 10 mg/mL (1 %) 0.5 mL injection (XYLOCAINE) metFORMIN hydrochloride 500 mg oral tablet (20 sources) Biguanide Start: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 mg/dL, Borderline high 200-499 mg/dL, High >499 mg/dL, Very high [facility] Cholesterol [Mass/Vol] 154 mg/dL Normal <200 [facility] Comment on above: Order Comment: Speci men Type: BLOOD SPECIMENOrdering Facility: [facility] Address: [facility] [place] [address] Result Comment: <200 mg/dL, Desirable 200-239 mg/dL, Borderline high>239 mg/dL, High Performed By: #### 2 4331-1 ####[facility] LABCLIA [id number] [address] [id number] [address] [facility] [id number] [place] [address] [place] Cholesterol in HDL [Mass/Vol] 39 mg/dL Low >39 [facility] Comment on above: Order Comment: Speci men Type: BLOOD SPECIMENOrdering Facility: [facility] Address: [address] [place] [address] Result Comment: 40-5 9 mg/dL, Acceptable>59 mg/dL, High: Negative risk factor for coronary heart disease<40 mg/dL, Low: Positive risk factor for coronary heart disease Performed By: #### 2 4331-1 ####[facility] LABCLIA [id number] [address] [id number] [place] [address] [place] Cholesterol in LDL [Mass/Vol] 79 mg/dL Normal <100 [facility] Comment on above: Order Comment: Jyotii men Type: BLOOD SPECIMENOrdering Facility: [facility] Address: [address] [place] [address] Result Comment: <100 mg/dL, Optimal 100-129 mg/dL, Near optimal/above optimal 130-159 mg/dL, Borderline high 160-189 mg/dL, High>189 mg/dL, Very highSecondary prevention optimal LDL Cholesterol levels are recommended to be <70 mg/dLLDL cholesterol is calculated using the Rodriguez-NIH equation. Performed By: #### 2 4331-1 ####[facility] LABCLIA [id number] [address] [id number] [place] [address] [place] Cholesterol in LDL/Cholesterol in HDL [Mass ratio] 2.03 {ratio} Normal <2.54 [facility] Comment on above: Order Comment: Speci men Type: BLOOD SPECIMENOrdering Facility: [facility] Address: [address] [place] [address] Result Comment: Stanislaw gibson:1. National Cholesterol Education Program ATP III Guideline At-A-Glance Quick Desk Reference: National Heart, Lung, and Blood Opal. National Institutes of Health. 2001: NIH Publication No. 01-3305.2. An International Atherosclerosis Society position paper: global recommendations for the management of dyslipidemia: executive summary, Atherosclerosis. 2014: 232(2):410-413. Performed By: #### 2 4331-1 ####[facility] LABCLIA [id number] [address] [id number] [address] [place] Cholesterol in VLDL [Mass/Vol] 33 mg/dL High <30 [facility] Comment on above: Order Comment: Speci men Type: BLOOD SPECIMENOrdering Facility: [facility] Address: [address] [place] [address] Performed By: #### 2 4331-1 ####[facility] LABCLIA [id number] [address] [id number] [place] [address] [place] Cholesterol non HDL [Mass/Vol] 115 mg/dL Normal <130 [facility] Comment on above: Order Comment: Jyotii men Type: BLOOD SPECIMENOrdering Facility: [facility] Address: [address] [place] [address] Result Comment: <130 mg/dL, Optimal 130-159 mg/dL, Near optimal/above optimal 160-189 mg/dL, Borderline high 190-219 mg/dL, High>219 mg/dL, Very highSecondary prevention optimal non HDL Cholesterol levels are recommended to be <100 mg/dL Performed By: #### 2 4331-1 ####[facility] LABCLIA [id number] [place] [id number] [facility] [id number] [place] [address] [place] Cholesterol.total/Cho lesterol in HDL [Mass ratio] 3.95 {ratio} Normal <5.10 [facility] Comment on above: Order Comment: Speci men Type: BLOOD SPECIMENOrdering Facility: [facility] Address: [address] [place] [address] Performed By: #### 2 4331-1 ####[facility] LABIA [id number] [address] STATES [facility] [id number] [place] [address] [place] FASTING TIME 12 hrs Normal [facility] Comment on above: Order Comment: Speci men Type: BLOOD SPECIMENOrdering Facility: [facility] Address: [address] [place] [address] Performed By: #### 2 4331-1 ####[facility] LABIA [id number] [address] [id number] [place] [address] [place] Triglyceride [Mass/Vol] 217 mg/dL High <150 [facility] Comment on above: Order Comment: Speci men Type: BLOOD SPECIMENOrdering Facility: [facility] Address: [address] [place], [place] [id number] Result Comment: <150 mg/dL, Normal 150-199 mg/dL, Borderline high 200-499 mg/dL, High>499 mg/dL, Very high Performed By: #### 2 4331-1 ####[facility] LABIA [id number] [place] [id number] [place] [facility] [id number] [place] [address] [place] CNOVon 11-03-2024 CNOV Normal [facility] LABORATORYOrdered By: Dara Gautam on 10-31-2024 Glucose [Mass/Vol] 98 mg/dL Normal 70 - 110 mg/dL [facility] LABORATORYOrdered By: Jacque Shea akuasanta on 10-31-2024 Blood Glucose Testing Reason Routine (10/31/24 7:48 AM) [facility] Glucose [Mass/Vol] 96 mg/dL Normal 70 - 110 mg/dL [facility] MRI BRAIN W/O CONTRASTon MRI BRAIN W/O CONTRAST ORIGINAL EXAMINATION: MRI OF THE BRAIN WITHOUT CONTRAST 10/30/2024 1:49 pm TECHNIQUE: Multiplanar multisequence MRI of the brain was performed without the administration of intravenous contrast. COMPARISON: CT head 10/28/2024 and 03/02/2022. MRI brain 02/04/2012. HISTORY: ORDERING SYSTEM PROVIDED HISTORY: Reason for Exam: TIA FINDINGS: INTRACRANIAL STRUCTURES/VENTRICLES: There is no acute infarct. No mass effect or midline shift. No evidence of an acute intracranial hemorrhage. The ventricles and sulci are normal in size and configuration. The sellar/suprasellar regions appear unremarkable. The normal signal voids within the major intracranial vessels appear maintained. A few nonspecific white matter FLAIR hyperintensities are identified. The ventricles are mildly enlarged with commensurate enlargement of the sulci most consistent with mild age-related volume loss. ORBITS: Postsurgical changes of the right globe including intra-ocular injection and scleral banding noted. The visualized portion of the orbits demonstrate no acute abnormality. SINUSES: The visualized paranasal sinuses and mastoid air cells demonstrate no acute abnormality. BONES/SOFT TISSUES: The bone marrow signal intensity appears normal. The soft tissues demonstrate no acute abnormality. Calcified density seen within the left paracentral frontal scalp reflect presents either an epidermoid inclusion or sebaceous cyst. IMPRESSION: 1. No acute intracranial abnormality. 2. Mild age-related volume loss. 3. A few nonspecific white matter FLAIR hyperintensities are identified. 4. Postsurgical changes of the right globe including intra-ocular injection and scleral banding. Interpreted by: Randi Crooks MD Preliminary Report By: Nathanael Dillon Electronically signed By Randi Crooks MD Dictated Date: 10/31/2024 12:22:27 AM Prelim Date: 10/31/2024 12:30:41 AM Sign Date: 10/31/2024 1:51:18 PM Ordering Provider: JOSE BRANDON [facility] MA[facility] LABORATORYOrdered By: Nishi Zhang on 10-30-2024 Glucose [Mass/Vol] 110 mg/dL Normal 70 - 110 mg/dL [facility] LABORATORYOrdered By: Shruthi Nunez on 10-30-2024 Blood Glucose Testing Reason Routine (10/30/24 3:56 PM) [facility] .Auto Diffon 10-29-2024 Basophil, Absolute 0.1 10 3/mcL Normal 0.0-0.3 [facility] Comment on above: Performed By: #### C BC, LIPID, ADIFF, ANEU, GFR, A1C, CMP, ESR #### [address] [address] Basophils/100 WBC (Bld) 0.7 % Normal 0.0-2.5 [facility] Comment on above: Performed By: #### C BC, LIPID, ADIFF, ANEU, GFR, A1C, CMP, ESR #### [address] [address] Eosinophil, Absolute 0.2 10 3/mcL Normal 0.0-0.7 [facility] Comment on above: Performed By: #### C BC, LIPID, ADIFF, ANEU, GFR, A1C, CMP, ESR #### [address] [address] Eosinophils/100 WBC (Bld) 2.4 % Normal 0.0-6.0 [facility] Comment on above: Performed By: #### C BC, LIPID, ADIFF, ANEU, GFR, A1C, CMP, ESR #### [address] [address] Lymphocyte, Absolute 2.6 10 3/mcL Normal 0.9-4.3 [facility] Comment on above: Performed By: #### C BC, LIPID, ADIFF, ANEU, GFR, A1C, CMP, ESR #### [address] [address] Lymphocytes/100 WBC (Bld) 29.6 % Normal 20.0-40.0 [facility] Comment on above: Performed By: #### C BC, LIPID, ADIFF, ANEU, GFR, A1C, CMP, ESR #### [address] [address] Monocyte, Absolute 0.6 10 3/mcL Normal 0.1-1.4 [facility] Comment on above: Performed By: #### C BC, LIPID, ADIFF, ANEU, GFR, A1C, CMP, ESR #### [address] [address] Monocytes/100 WBC (Bld) 6.9 % Normal 2.0-13.0 [facility] Comment on above: Performed By: #### C BC, LIPID, ADIFF, ANEU, GFR, A1C, CMP, ESR #### [address] [address] Neutrophils/100 WBC (Bld) 60.4 % Normal 50.0-75.0 [facility] Comment on above: Performed By: #### C BC, LIPID, ADIFF, ANEU, GFR, A1C, CMP, ESR #### [address] [address] .GFRon 10-29-2024 Estimated Glomerular Filtration Rate 106 ml/min/1.73sqm Normal [facility] Comment on above: Result Comment: Stages of Chronic Kidney Disease (CKD) Stage Description eGFR(ml/min/1.73 sq.m.) CKD 1 Normal kidney function or >=90 normal kindney function with possible kidney damage (ex. Proteinuria) CKD 2 Kidney damage with mild loss 60-89 of kidney function CKD 3a Mild to moderate loss of kidney 45-59 function CKD 3b Moderate to severe loss of 30-44 of kindey function CKD 4 Severe loss of kidney function 15-29 CKD 5 Kidney failure <15 Note: (go live 2024) the eGFR calculation was updated to the 2020 CKD-EPI creatinine equation without a race factor to calculate the eGFR results. Performed By: #### C BC, LIPID, ADIFF, ANEU, GFR, A1C, CMP, ESR #### [address] [address] .NEUABSon 10-29-2024 Neutrophil, Absolute 5.2 10 3/mcL Normal 2.3-8.1 [facility] Comment on above: Performed By: #### C BC, LIPID, ADIFF, ANEU, GFR, A1C, CMP, ESR #### [place] [id number] A1Con 10-29-2024 Glucose [Mass/Vol] 120 mg/dL Normal [facility] Comment on above: Result Comment: Carolin mated Average Glucose calculated by equation ((28.7xA1C)-46.7) Estimated average glucose (eAG) is a calculated value from Hemoglobin A1C and is computer help desk representative of the average blood glucose level in the last 2-3 month period. Normal range: less than 114 mg/dL Performed By: #### C BC, LIPID, ADIFF, ANEU, GFR, A1C, CMP, ESR #### [place] [address] HbA1c (Bld) [Mass fraction] 5.8 % Normal 4.0-6.0 [facility] Comment on above: Performed By: #### C BC, LIPID, ADIFF, ANEU, GFR, A1C, CMP, ESR #### [place] [id number] CBCon 10-29-2024 Erythrocyte distribution width (RBC) [Ratio] 13.9 % Normal 11.5-15.5 [facility] Comment on above: Performed By: #### C BC, LIPID, ADIFF, ANEU, GFR, A1C, CMP, ESR #### [place] [address] Hematocrit (Bld) [Volume fraction] 45.4 % Normal 34.0-46.0 [facility] Comment on above: Performed By: #### C BC, LIPID, ADIFF, ANEU, GFR, A1C, CMP, ESR #### [place] [address] Hgb 15.0 G/dL Normal 12.0-16.0 [facility] Comment on above: Performed By: #### C BC, LIPID, ADIFF, ANEU, GFR, A1C, CMP, ESR #### [place] [id number] MCH (RBC) [Entitic mass] 30.8 pg Normal 27.0-33.0 [facility] Comment on above: Performed By: #### C BC, LIPID, ADIFF, ANEU, GFR, A1C, CMP, ESR #### [place] [id number] MCHC 33.0 G/dL Normal 32.0-36.0 [facility] Comment on above: Performed By: #### C BC, LIPID, ADIFF, ANEU, GFR, A1C, CMP, ESR #### [place] [address] MCV (RBC) [Entitic vol] 93.1 fL Normal 80.0-99.0 [facility] Comment on above: Performed By: #### C BC, LIPID, ADIFF, ANEU, GFR, A1C, CMP, ESR #### [place] [address] Platelet 247 10 3/mcL Normal 150-450 [facility] Comment on above: Performed By: #### C BC, LIPID, ADIFF, ANEU, GFR, A1C, CMP, ESR #### [place] [address] Platelet mean volume (Bld) [Entitic vol] 8.0 fL Normal 6.6-10.5 [facility] Comment on above: Performed By: #### C BC, LIPID, ADIFF, ANEU, GFR, A1C, CMP, ESR #### [place] [address] RBC 4.87 10 6/mcL Normal 4.10-5.30 [facility] Comment on above: Performed By: #### C BC, LIPID, ADIFF, ANEU, GFR, A1C, CMP, ESR #### [place] [address] WBC 8.6 10 3/mcL Normal 4.5-10.8 [facility] Comment on above: Performed By: #### C BC, LIPID, ADIFF, ANEU, GFR, A1C, CMP, ESR #### [address] [address] CMPon 10-29-2024 Albumin Level 3.3 G/dL Normal 3.2-4.8 [facility] Comment on above: Performed By: #### C BC, LIPID, ADIFF, ANEU, GFR, A1C, CMP, ESR #### [place] [id number] Albumin/Globulin [Mass ratio] 1.2 {ratio} Normal 0.9-1.6 [facility] Comment on above: Performed By: #### C BC, LIPID, ADIFF, ANEU, GFR, A1C, CMP, ESR #### [place] [id number] ALP [Catalytic activity/Vol] 65 U/L Normal 38-126 [facility] Comment on above: Performed By: #### C BC, LIPID, ADIFF, ANEU, GFR, A1C, CMP, ESR #### [place] [id number] ALT [Catalytic activity/Vol] 8 U/L Low 10-49 [facility] Comment on above: Performed By: #### C BC, LIPID, ADIFF, ANEU, GFR, A1C, CMP, ESR #### [place] [id number] AST [Catalytic activity/Vol] 23 U/L Normal 8-34 [facility] Comment on above: Performed By: #### C BC, LIPID, ADIFF, ANEU, GFR, A1C, CMP, ESR #### [place] [address] Bili Total 0.50 mg/dL Normal 0.20-1.20 [facility] Comment on above: Result Comment: Use of this assay is not recommended for patients undergoing treatment with eltrombopag due to the potential for falsely elevated results. Performed By: #### C BC, LIPID, ADIFF, ANEU, GFR, A1C, CMP, ESR #### [place] [address] BUN/Creatinine Ratio 11.5 ratio Normal 10.0-22.0 [facility] Comment on above: Performed By: #### C BC, LIPID, ADIFF, ANEU, GFR, A1C, CMP, ESR #### [place] [id number] Calcium [Mass/Vol] 9.2 mg/dL Normal 8.7-10.4 [facility] Comment on above: Performed By: #### C BC, LIPID, ADIFF, ANEU, GFR, A1C, CMP, ESR #### [place] [id number] Chloride [Moles/Vol] 106 mmol/L Normal 98-110 [facility] Comment on above: Performed By: #### C BC, LIPID, ADIFF, ANEU, GFR, A1C, CMP, ESR #### [place] [id number] CO2 [Moles/Vol] 28 mmol/L Normal 22-32 [facility] Comment on above: Performed By: #### C BC, LIPID, ADIFF, ANEU, GFR, A1C, CMP, ESR #### [place] [address] Creatinine [Mass/Vol] 0.61 mg/dL Normal 0.50-1.20 [facility] Comment on above: Result Comment: Test ing performed on PinMyPet analyzer using enzymatic creatinine methodology. Performed By: #### C BC, LIPID, ADIFF, ANEU, GFR, A1C, CMP, ESR #### [place] [address] Electrolyte Balance 9.0 mEq/L Normal 4.0-15.0 [facility] Comment on above: Performed By: #### C BC, LIPID, ADIFF, ANEU, GFR, A1C, CMP, ESR #### [place] [id number] Globulin 2.8 G/dL Normal 2.5-4.2 [facility] Comment on above: Performed By: #### C BC, LIPID, ADIFF, ANEU, GFR, A1C, CMP, ESR #### [place] [id number] Glucose [Mass/Vol] 78 mg/dL Normal 70-110 [facility] Comment on above: Performed By: #### C BC, LIPID, ADIFF, ANEU, GFR, A1C, CMP, ESR #### [place] [id number] Potassium [Moles/Vol] 3.7 mmol/L Normal 3.5-5.0 [facility] Comment on above: Performed By: #### C BC, LIPID, ADIFF, ANEU, GFR, A1C, CMP, ESR #### [place] [id number] Sodium [Moles/Vol] 143 mmol/L Normal 136-145 [facility] Comment on above: Performed By: #### C BC, LIPID, ADIFF, ANEU, GFR, A1C, CMP, ESR #### [place] [address] Total Protein 6.1 G/dL Normal 5.7-8.2 [facility] Comment on above: Performed By: #### C BC, LIPID, ADIFF, ANEU, GFR, A1C, CMP, ESR #### [place] [address] Urea nitrogen [Mass/Vol] 7.0 mg/dL Low 8.0-22.0 [facility] Comment on above: Performed By: #### C BC, LIPID, ADIFF, ANEU, GFR, A1C, CMP, ESR #### [place] [address] ESRon 10-29-2024 Erythrocyte Sed Rate 11 mm/hr Normal 0-30 [facility] Comment on above: Performed By: #### C BC, LIPID, ADIFF, ANEU, GFR, A1C, CMP, ESR #### [place] [address] LABORATORYOrdered By: Shruthi Nunez on 10-29-2024 Blood Glucose Testing Reason Routine (10/29/24 9:39 PM) [facility] LABORATORYOrdered By: SYSTEM SYSTEM on 10-29-2024 Albumin BCP dye [Mass/Vol] 3.3 G/dL Normal 3.2 - 4.8 G/dL ADM SS Albumin/Globulin [Mass ratio] 1.2 {ratio} Normal 0.9 - 1.6 ratio AH ADM SS ALP [Catalytic activity/Vol] 65 U/L Normal 38 - 126 U/L ADM SS ALT No additional P-5'-P [Catalytic activity/Vol] 8 U/L Low 10 - 49 U/L ADM SS AST [Catalytic activity/Vol] 23 U/L Normal 8 - 34 U/L ADM SS Basophils (Bld) [#/Vol] 0.1 103/mcL Normal 0.0 - 0.3 10^3/mcL Workflow SS Basophils/100 WBC (Bld) 0.7 % Normal 0.0 - 2.5 % Workflow SS Bilirubin [Mass/Vol] 0.50 mg/dL Normal 0.20 - 1.20 mg/dL ADM SS Comment on above: Interpretive Data: U se of this assay is not recommended for patients undergoing treatment with eltrombopag due to the potential for falsely elevated results. Calcium [Mass/Vol] 9.2 mg/dL Normal 8.7 - 10. 4 mg/dL ADM SS Chloride [Moles/Vol] 106 mmol/L Normal 98 - 11 0 mEq/L ADM SS CO2 [Moles/Vol] 28 mmol/L Normal 22 - 32 mEq/L ADM SS Creatinine [Mass/Vol] 0.61 mg/dL Normal 0.50 - 1.20 mg/dL ADM SS Comment on above: Interpretive Data: T esting performed on PinMyPet analyzer using enzymatic creatinine methodology. Electrolyte Balance 9.0 mEq/L Normal 4.0 - 15 .0 mEq/L ADM SS Eosinophils (Bld) [#/Vol] 0.2 103/mcL Normal 0.0 - 0.7 10^3/mcL Workflow SS Eosinophils/100 WBC (Bld) 2.4 % Normal 0.0 - 6.0 % Workflow SS Erythrocyte distribution width (RBC) [Ratio] 13.9 % Normal 11.5 - 15.5 % Workflow SS Estimated Glomerular Filtration Rate 106 ml/min/1.73sqm Invalid Interpretation Code Chemistry S Comment on above: Interpretive Data: Stages of Chronic Kidney Disease (CKD) Stage Description eGFR(ml/min/1.73 sq.m.) CKD 1 Normal kidney function or >=90 normal kindney function with possible kidney damage (ex. Proteinuria) CKD 2 Kidney damage with mild loss 60-89 of kidney function CKD 3a Mild to moderate loss of kidney 45-59 function CKD 3b Moderate to severe loss of 30-44 of kindey function CKD 4 Severe loss of kidney function 15-29 CKD 5 Kidney failure <15 Note: (go live 2024) the eGFR calculation was updated to the 2020 CKD-EPI creatinine equation without a race factor to calculate the eGFR results. Globulin 2.8 G/dL Normal 2.5 - 4.2 G/dL AH ADM SS Glucose [Mass/Vol] 78 mg/dL Normal 70 - 110 mg/dL AH ADM SS Glucose [Mass/Vol] 120 mg/dL Invalid Interpretation Code AH Auto Chem SS Comment on above: Interpretive Data: E stimated average glucose (eAG) is a calculated value from Hemoglobin A1C and is computer help desk representative of the average blood glucose level in the last 2-3 month period. Normal range: less than 114 mg/dL HbA1c (Bld) [Mass fraction] 5.8 % Normal 4.0 - 6.0 % Auto Chem SS Hematocrit (Bld) [Volume fraction] 45.4 % Normal 34.0 - 46.0 % AH Workflow SS Hemoglobin (Bld) [Mass/Vol] 15.0 G/dL Normal 12.0 - 16.0 G/dL AH Workflow SS Lymphocytes (Bld) [#/Vol] 2.6 103/mcL Normal 0.9 - 4.3 10^3/mcL AH Workflow SS Lymphocytes/100 WBC (Bld) 29.6 % Normal 20.0 - 40.0 % AH Workflow SS MCH (RBC) [Entitic mass] 30.8 pg Normal 27.0 - 33.0 pg AH Workflow SS MCHC 33.0 G/dL Normal 32.0 - 36.0 G/dL AH Workflow SS MCV (RBC) [Entitic vol] 93.1 fL Normal 80.0 - 99.0 fL AH Workflow SS Monocytes (Bld) [#/Vol] 0.6 103/mcL Normal 0.1 - 1.4 10^3/mcL AH Workflow SS Monocytes/100 WBC (Bld) 6.9 % Normal 2.0 - 13.0 % AH Workflow SS Neutrophils (Bld) [#/Vol] 5.2 103/mcL Normal 2.3 - 8.1 10^3/mcL AH Workflow SS Neutrophils/100 WBC (Bld) 60.4 % Normal 50.0 - 75.0 % AH Workflow SS Platelet mean volume (Bld) [Entitic vol] 8.0 fL Normal 6.6 - 10.5 fL AH Workflow SS Platelets (Bld) [#/Vol] 247 103/mcL Normal 150 - 450 10^3/mcL AH Workflow SS Potassium [Moles/Vol] 3.7 mmol/L Normal 3.5 - 5.0 mEq/L AH ADM SS Protein [Mass/Vol] 6.1 G/dL Normal 5.7 - 8.2 G/dL AH ADM SS RBC (Bld) [#/Vol] 4.87 106/mcL Normal 4.10 - 5.30 10^6/mcL AH Workflow SS Sodium [Moles/Vol] 143 mmol/L Normal 136 - 145 mEq/L ADM SS Urea nitrogen [Mass/Vol] 7.0 mg/dL Low 8.0 - 22.0 mg/dL ADM SS Urea nitrogen/Creatinine [Mass ratio] 11.5 ratio Normal 10.0 - 22.0 ratio ADM SS WBC (Bld) [#/Vol] 8.6 103/mcL Normal 4.5 - 10.8 10^3/mcL Workflow SS LABORATORYOrdered By: Lor Shay on 10-29-2024 Cholesterol [Mass/Vol] 141 mg/dL Normal 50 - 199 mg/dL ADM SS Comment on above: Interpretive Data: C holesterol Reference Interval: Less than 200 Desirable 200-239 Borderline high risk 240 and above High risk Cholesterol in HDL [Mass/Vol] 39 mg/dL Low 40 - 59 mg/dL ADM SS Cholesterol in LDL [Mass/Vol] 71 mg/dL Normal 0 - 129 mg/dL ADM SS Triglyceride [Mass/Vol] 157 mg/dL High 3 - 149 mg/dL ADM SS LABORATORYOrdered By: Alberto Pantoja on 10-29-2024 ESR 15 minute reading (Bld) [Velocity] 11 mm/hr Normal 0 - 30 mm/hr Auto Heme SS LIPIDon 10-29-2024 Cholesterol [Mass/Vol] 141 mg/dL Normal 50-199 [facility] Comment on above: Result Comment: Chol esterol Reference Interval: Less than 200 Desirable 200-239 Borderline high risk 240 and above High risk Performed By: #### C BC, LIPID, ADIFF, ANEU, GFR, A1C, CMP, ESR #### [address] [address] Cholesterol in HDL [Mass/Vol] 39 mg/dL Low 40-59 [facility] Comment on above: Performed By: #### C BC, LIPID, ADIFF, ANEU, GFR, A1C, CMP, ESR #### [address] [address] Cholesterol in LDL [Mass/Vol] 71 mg/dL Normal 0-129 [facility] Comment on above: Performed By: #### C BC, LIPID, ADIFF, ANEU, GFR, A1C, CMP, ESR #### [address] [address] Triglyceride [Mass/Vol] 157 mg/dL High 3-149 [facility] Comment on above: Performed By: #### C BC, LIPID, ADIFF, ANEU, GFR, A1C, CMP, ESR #### [address] [address] UFENTSon 10-29-2024 Fentanyl (u) Negative Normal Negative [facility] Comment on above: Result Comment: Test ing has been performed FOR MEDICAL PURPOSES ONLY. Performed By: #### U DRUG #### [address] [address] #### UOXYS, UFENTS #### [address] [address] UOXYSon 10-29-2024 Oxycodone (u) Negative Normal Negative [facility] Comment on above: Result Comment: Test ing has been performed FOR MEDICAL PURPOSES ONLY. Performed By: #### U DRUG #### [address] [address] #### UOXYS, UFENTS #### [address] [address] .Auto Diffon 10-28-2024 Basophil, Absolute 0.0 10 3/mcL Normal 0.0-0.3 [facility] Comment on above: Performed By: #### A TRE, CBC, GFR, MDW, TROPHS, PRO, BMP, APTT, ADIFF, MG #### [address] [address] Basophils/100 WBC (Bld) 0.5 % Normal 0.0-2.5 [facility] Comment on above: Performed By: #### A TRE, CBC, GFR, MDW, TROPHS, PRO, BMP, APTT, ADIFF, MG #### [address] [address] Eosinophil, Absolute 0.2 10 3/mcL Normal 0.0-0.7 [facility] Comment on above: Performed By: #### A TRE, CBC, GFR, MDW, TROPHS, PRO, BMP, APTT, ADIFF, MG #### [address] [address] Eosinophils/100 WBC (Bld) 3.1 % Normal 0.0-6.0 [facility] Comment on above: Performed By: #### A TRE, CBC, GFR, MDW, TROPHS, PRO, BMP, APTT, ADIFF, MG #### [address] [address] Lymphocyte, Absolute 2.0 10 3/mcL Normal 0.9-4.3 [facility] Comment on above: Performed By: #### A TRE, CBC, GFR, MDW, TROPHS, PRO, BMP, APTT, ADIFF, MG #### [address] [address] Lymphocytes/100 WBC (Bld) 31.1 % Normal 20.0-40.0 [facility] Comment on above: Performed By: #### A TRE, CBC, GFR, MDW, TROPHS, PRO, BMP, APTT, ADIFF, MG #### [address] [address] Monocyte, Absolute 0.3 10 3/mcL Normal 0.1-1.4 [facility] Comment on above: Performed By: #### A TRE, CBC, GFR, MDW, TROPHS, PRO, BMP, APTT, ADIFF, MG #### [address] [address] Monocytes/100 WBC (Bld) 5.3 % Normal 2.0-13.0 [facility] Comment on above: Performed By: #### A TRE, CBC, GFR, MDW, TROPHS, PRO, BMP, APTT, ADIFF, MG #### [address] [place], [place] [address] Neutrophils/100 WBC (Bld) 60.0 % Normal 50.0-75.0 [facility] Comment on above: Performed By: #### A TRE, CBC, GFR, MDW, TROPHS, PRO, BMP, APTT, ADIFF, MG #### [id number] [place], [place] [address] .GFRon 10-28-2024 Estimated Glomerular Filtration Rate 97 ml/min/1.73sqm Normal [facility] Comment on above: Result Comment: Stages of Chronic Kidney Disease (CKD) Stage Description eGFR(ml/min/1.73 sq.m.) CKD 1 Normal kidney function or >=90 normal kindney function with possible kidney damage (ex. Proteinuria) CKD 2 Kidney damage with mild loss 60-89 of kidney function CKD 3a Mild to moderate loss of kidney 45-59 function CKD 3b Moderate to severe loss of 30-44 of kindey function CKD 4 Severe loss of kidney function 15-29 CKD 5 Kidney failure <15 Note: (go live 2024) the eGFR calculation was updated to the 2020 CKD-EPI creatinine equation without a race factor to calculate the eGFR results. Performed By: #### U DRUG #### [address] [address] #### UOXYS, UFENTS #### [facility] [address] [place] [address] .MDWon 10-28-2024 Monocyte Distribution Width 19.31 Normal 0.00-20.00 [facility] Comment on above: Result Comment: For ED adult patients suspected of sepsis, MDW<=20.0 does not rule out sepsis or risk of sepsis Performed By: #### A TRE, CBC, GFR, MDW, TROPHS, PRO, BMP, APTT, ADIFF, MG #### [address] [address] .NEUABSon 10-28-2024 Neutrophil, Absolute 3.9 10 3/mcL Normal 2.3-8.1 [facility] Comment on above: Performed By: #### A TRE, CBC, GFR, MDW, TROPHS, PRO, BMP, APTT, ADIFF, MG #### [address] [address] ACETAon 10-28-2024 Acetaminophen Lvl <0 Normal 10.0-30.0 [facility] Comment on above: Performed By: #### U DRUG #### [place] [address] #### UOXYS, UFENTS #### [address] [address] Kenji 10-28-2024 Ethanol Level <3 Normal [facility] Comment on above: Performed By: #### U DRUG #### [place] [address] #### UOXYS, UFENTS #### [address] [address] APTTon 10-28-2024 aPTT Coag (Bld) [Time] 33.4 s Normal 25.0-35.0 [facility] Comment on above: Result Comment: For Heparin anticoagulation therapy, the recommended therapeutic range is: 45.4-75.9 seconds. Patients on heparin therapy may have an extreme result. Performed By: #### A TRE, CBC, GFR, MDW, TROPHS, PRO, BMP, APTT, ADIFF, MG #### [address] [address] BMPon 10-28-2024 BUN/Creatinine Ratio 14 ratio Normal 7-27 [facility] Comment on above: Performed By: #### U DRUG #### [address] [address] #### UOXYS, UFENTS #### [address] [address] Calcium [Mass/Vol] 9.4 mg/dL Normal 8.4-10.2 [facility] Comment on above: Performed By: #### U DRUG #### [place] [address] #### UOXYS, UFENTS #### [place] [address] Chloride [Moles/Vol] 106 mmol/L Normal 98-107 [facility] Comment on above: Performed By: #### U DRUG #### [place] [address] #### UOXYS, UFENTS #### [place] [address] CO2 [Moles/Vol] 31 mmol/L High 22-29 [facility] Comment on above: Performed By: #### U DRUG #### [place] [address] #### UOXYS, UFENTS #### [place] [address] Creatinine [Mass/Vol] 0.73 mg/dL Normal 0.51-0.95 [facility] Comment on above: Performed By: #### U DRUG #### [place] [address] #### UOXYS, UFENTS #### [place] [address] Electrolyte Balance 4.0 mEq/L Normal 4.0-15.[address] [facility] Comment on above: Performed By: #### U DRUG #### [place] [address] #### UOXYS, UFENTS #### [place] [id number] Glucose [Mass/Vol] 174 mg/dL High 70-105 [facility] Comment on above: Performed By: #### U DRUG #### [place] [address] #### UOXYS, UFENTS #### [address] [address] Potassium [Moles/Vol] 3.6 mmol/L Normal 3.5-5.1 [facility] Comment on above: Performed By: #### U DRUG #### [place] [address] #### UOXYS, UFENTS #### [address] [address] Sodium [Moles/Vol] 141 mmol/L Normal 136-145 [facility] Comment on above: Performed By: #### U DRUG #### [place] [address] #### UOXYS, UFENTS #### [place] [address] Urea nitrogen [Mass/Vol] 10 mg/dL Normal 7-18 [facility] Comment on above: Performed By: #### U DRUG #### [place] [address] #### UOXYS, UFENTS #### [address] [address] CBCon 10-28-2024 Erythrocyte distribution width (RBC) [Ratio] 13.7 % Normal 11.5-15.5 [facility] Comment on above: Performed By: #### A TRE, CBC, GFR, MDW, TROPHS, PRO, BMP, APTT, ADIFF, MG #### [place] [address] Hematocrit (Bld) [Volume fraction] 43.5 % Normal 34.0-46.0 [facility] Comment on above: Performed By: #### A TRE, CBC, GFR, MDW, TROPHS, PRO, BMP, APTT, ADIFF, MG #### [place] [address] Hgb 14.7 G/dL Normal 12.0-16.0 [facility] Comment on above: Performed By: #### A TRE, CBC, GFR, MDW, TROPHS, PRO, BMP, APTT, ADIFF, MG #### [address] [address] MCH (RBC) [Entitic mass] 31.3 pg Normal 27.0-33.0 [facility] Comment on above: Performed By: #### A TRE, CBC, GFR, MDW, TROPHS, PRO, BMP, APTT, ADIFF, MG #### [place] [address] MCHC 33.8 G/dL Normal 32.0-36.0 [facility] Comment on above: Performed By: #### A TRE, CBC, GFR, MDW, TROPHS, PRO, BMP, APTT, ADIFF, MG #### [place] [address] MCV (RBC) [Entitic vol] 92.8 fL Normal 80.0-99.0 [facility] Comment on above: Performed By: #### A TRE, CBC, GFR, MDW, TROPHS, PRO, BMP, APTT, ADIFF, MG #### [address] [address] Platelet 225 10 3/mcL Normal 150-450 [facility] Comment on above: Performed By: #### A TRE, CBC, GFR, MDW, TROPHS, PRO, BMP, APTT, ADIFF, MG #### [address] [address] Platelet mean volume (Bld) [Entitic vol] 7.0 fL Normal 6.6-10.5 [facility] Comment on above: Performed By: #### A TRE, CBC, GFR, MDW, TROPHS, PRO, BMP, APTT, ADIFF, MG #### [address] [address] RBC 4.68 10 6/mcL Normal 4.10-5.30 [facility] Comment on above: Performed By: #### A TRE, CBC, GFR, MDW, TROPHS, PRO, BMP, APTT, ADIFF, MG #### [address] [address] WBC 6.6 10 3/mcL Normal 4.5-10.8 [facility] Comment on above: Performed By: #### A TRE, CBC, GFR, MDW, TROPHS, PRO, BMP, APTT, ADIFF, MG #### [facility] [address] [place], [place] [address] CT ANGIOGRAPHY HEAD W/ CONTR Rm 10-28-2024 CT ANGIOGRAPHY HEAD W/ CONTRAST ORIGINAL EXAMINATION: CTA OF THE HEAD WITH CONTRAST 10/28/2024 6:52 pm: TECHNIQUE: CTA of the head/brain was performed with the administration of intravenous contrast. Multiplanar reformatted images are provided for review. MIP images are provided for review. Automated exposure control, iterative reconstruction, and/or weight based adjustment of the mA/kV was utilized to reduce the radiation dose to as low as reasonably achievable. COMPARISON: CT head without contrast, same day HISTORY: ORDERING SYSTEM PROVIDED HISTORY: Reason for Exam: headache, slrred speech resolved FINDINGS: ANTERIOR CIRCULATION: No significant stenosis of the intracranial internal carotid, anterior cerebral, or middle cerebral arteries. No aneurysm. POSTERIOR CIRCULATION: No significant stenosis of the vertebral, basilar, or posterior cerebral arteries. No aneurysm. OTHER: No dural venous sinus thrombosis on this non-dedicated study. BRAIN: No mass effect or midline shift. No extra-axial fluid collection. The miguel-white differentiation is maintained. IMPRESSION: Unremarkable CTA of the head. Interpreted by: Osvaldo Swenson Preliminary Report By: Osvaldo Swenson Electronically signed By Osvaldo Swenson Dictated Date: 10/28/2024 6:56:56 PM Prelim Date: 10/28/2024 7:11:10 PM Sign Date: 10/28/2024 7:11:10 PM Ordering Provider: STELLA Zavaleta [facility] CT ANGIOGRAPHY NECK W/CONTRA STon 10-28-2024 CT ANGIOGRAPHY NECK W/CONTRAST ORIGINAL EXAMINATION: CTA OF THE NECK 10/28/2024 6:52 pm TECHNIQUE: CTA of the neck was performed with the administration of intravenous contrast. Multiplanar reformatted images are provided for review. MIP images are provided for review. Stenosis of the internal carotid arteries measured using NASCET criteria. Automated exposure control, iterative reconstruction, and/or weight based adjustment of the mA/kV was utilized to reduce the radiation dose to as low as reasonably achievable. COMPARISON: None. HISTORY: ORDERING SYSTEM PROVIDED HISTORY: Reason for Exam: Headache, slurred speech resolved FINDINGS: AORTIC ARCH/ARCH VESSELS: No dissection or arterial injury. No significant stenosis of the brachiocephalic or subclavian arteries. CAROTID ARTERIES: No dissection, arterial injury, or hemodynamically significant stenosis by NASCET criteria. VERTEBRAL ARTERIES: No dissection, arterial injury, or significant stenosis. SOFT TISSUES: The lung apices are clear. No cervical or superior mediastinal lymphadenopathy. The larynx and pharynx are unremarkable. No acute abnormality of the salivary and thyroid glands. BONES: No acute osseous abnormality. IMPRESSION: Unremarkable CTA of the neck. Interpreted by: Osvaldo Swenson Preliminary Report By: Osvaldo Swenson Electronically signed By Osvaldo Swenson Dictated Date: 10/28/2024 7:11:14 PM Prelim Date: 10/28/2024 7:13:21 PM Sign Date: 10/28/2024 7:13:21 PM Ordering Provider: STELLA PETERS [facility] CT HEAD OR BRAIN W/O CONTRAS Ton 10-28-2024 CT HEAD OR BRAIN W/O CONTRAST ORIGINAL EXAMINATION: CT OF THE HEAD WITHOUT CONTRAST10/28/2024 6:51 pm TECHNIQUE: Axial CT images from skull base to vertex without IV contrast. This exam was performed according to our departmental dose optimization program, and includes the following measures where applicable: automated exposure control, adjustment of the mAs and/or kVp according to patient size and/or exam, and an iterative reconstruction algorithm. COMPARISON: CT head 03/02/2022 HISTORY: ORDERING SYSTEM PROVIDED HISTORY: Reason for Exam: headache, weakness FINDINGS: There is no intracranial hemorrhage, mass effect or abnormal extra-axial fluid collection. No CT evidence for acute infarction. 0.5 cm calcified density along the anterior falx may represent a calcified meningioma versus falx calcifications. The ventricles are unremarkable. The visualized portions of the orbits demonstrate no acute abnormality. Postsurgical changes of the right globe. The skull base and calvarium demonstrate no acute abnormality. The included paranasal sinuses and mastoid air cells are predominantly clear. IMPRESSION: No acute intracranial abnormality. I have personally reviewed the images of this examination and agree with the resident's findings and interpretation. Interpreted by: Osvaldo Sousaris Preliminary Report By: Nisha Benito Electronically signed By Osvaldo Swenson Dictated Date: 10/28/2024 6:56:26 PM Prelim Date: 10/28/2024 7:00:49 PM Sign Date: 10/28/2024 7:14:07 PM Ordering Provider: STELLA PETERS [facility] Mark 10-28-2024 FLU A PCR Negative Normal Negative [facility] Comment on above: Performed By: #### U DRUG #### [place] [address] #### UOXYS, UFENTS #### [facility] [address] [place], [place] [id number] FLU B PCR Negative Normal Negative [facility] Comment on above: Performed By: #### U DRUG #### [place] [address] #### UOXYS, UFENTS #### [place] [id number] [place], [place] [id number] RSV PCR Negative Normal Negative [facility] Comment on above: Performed By: #### U DRUG #### [place] [address] #### UOXYS, UFENTS #### [place] [address] SARS-CoV-2 (COVID-19) RNA ANOOP+probe Ql (Unsp spec) Negative Normal Negative [facility] Comment on above: Result Comment: Resu lts from the Xpert Xpress CoV-2/Flu/RSV plus test should be correlated with the clinical history, epidemiological data, and other data available to the clinical evaluating the patient. Performance of the Xpert Xpress CoV-2/Flu/RSV plus test has only been established in nasopharyngeal swab specimen. Erroneous test results might occur from improper specimen collection, failure to follow the recommended sample collection, handling and storage procedures, technical error, or sample mix-up. False negative results may occur if a virus is present at a level below the analytical limit of detection. Viral nucleic acid may persist in vivo, independent of virus viability. Detection of analyte target(s) does not imply that the corresponding virus(es) are infectious or are the causative agents for clinical symptoms. Recent patient exposure to FluMist or other live attenuated influenza vaccines may cause inaccurate positive results. Performed By: #### U DRUG #### [facility] [address] [place], [place] [address] #### UOXYS, UFENTS #### [facility] [address] [place], [place] [address] LABORATORYOrdered By: Ozzy Durán on 10-28-2024 Amphetamines Screen Ql (U) Negative *NA* (10/28/24 8:16 PM) Invalid Interpretation Code Negative AO ADM SS Barbiturates Screen Ql (U) Negative *NA* (10/28/24 8:16 PM) Invalid Interpretation Code Negative AO ADM SS Benzodiazepines Ql (U) Negative *NA* (10/28/24 8:16 PM) Invalid Interpretation Code Negative AO ADM SS Benzoylecgonine Screen Ql (U) Negative *NA* (10/28/24 8:16 PM) Invalid Interpretation Code Negative AO ADM SS Cannabinoids Screen Ql (U) Negative *NA* (10/28/24 8:16 PM) Invalid Interpretation Code Negative AO ADM SS Methadone Screen Ql (U) Negative *NA* (10/28/24 8:16 PM) Invalid Interpretation Code Negative AO ADM SS Opiates Screen Ql (U) Negative *NA* (10/28/24 8:16 PM) Invalid Interpretation Code Negative AO ADM SS Phencyclidine Ql (U) Negative *NA* (10/28/24 8:16 PM) Invalid Interpretation Code Negative AO ADM SS Urine Drugs screened: See Below 8 (10/28/24 8:16 PM) Normal AO Chemistry S Comment on above: Interpretive Data: T his drug screen is a presumptive screening only. No confirmation will be performed unless requested. Drugs screened include: Threshold Amphetamines/Methamphetamines 1,000 ng/mL Barbiturates 200 ng/mL Benzodiazepine metabolites 200 ng/mL Cannabinoids (THC metabolites) 50 ng/mL Cocaine 300 ng/mL Opiates 300 ng/mL Methadone 300 ng/mL Phencyclidine (PCP) 25 ng/mL Testing has been performed FOR MEDICAL PURPOSES ONLY. LABORATORYOrdered By: Amari mast on 10-28-2024 Appearance (U) Clear (10/28/24 8:16 PM) Normal Clear AO Auto Urine SS Bilirubin Ql (U) Negative (8/8/25 8:16 PM) Normal Negative AO Auto Urine SS Color (U) Yellow (10/28/24 8:16 PM) Normal AO Auto Urine SS Glucose Test strip (U) [Mass/Vol] Negative Normal Negative AO Auto Urine SS Hemoglobin Auto test strip (U) [Mass/Vol] Negative (10/28/24 8:16 PM) Normal Negative AO Auto Urine SS Ketones Ql (U) Negative Normal Negative AO Auto Ur ine SS UA Leuk Est Negative (10/28/24 8:16 PM) Normal Negative AO Auto Urine SS UA Nitrite Negative (10/28/24 8:16 PM) Normal Negative AO Auto Urine SS UA pH 6.5 (10/28/24 8:16 PM) Normal 5.0 - 8.0 AO Auto Urine SS UA Protein Negative Normal Negative AO Auto Urine SS UA Spec Grav 1.010 *ABN* (10/28/24 8:16 PM) Invalid Interpretation Code 1.015-1.02 5 AO Auto Urine SS UA Specimen Type Clean Catch (10/28/24 8:16 PM) Normal AO Auto Urine SS UA Urobilinogen 0.2 E.U./dL Normal 0.2-1.0 AO Auto Urine SS FLUAV RNA ANOOP+probe Ql (Resp) Negative (10/28/24 5:45 PM) Normal Negative AO Auto Urine SS FLUBV RNA ANOOP+probe Ql (Resp) Negative (10/28/24 5:45 PM) Normal Negative AO Auto Urine SS RSV RNA ANOOP+probe Ql (Resp) Negative (10/28/24 5:45 PM) Normal Negative AO Auto Urine SS SARS-CoV-2 (COVID-19) RNA ANOOP+probe Ql (Resp) Negative 10 (10/28/24 5:45 PM) Normal Negative AO Auto Urine SS Comment on above: Interpretive Data: R esults from the Xpert Xpress CoV-2/Flu/RSV plus test should be correlated with the clinical history, epidemiological data, and other data available to the clinical evaluating the patient. Performance of the Xpert Xpress CoV-2/Flu/RSV plus test has only been established in nasopharyngeal swab specimen. Erroneous test results might occur from improper specimen collection, failure to follow the recommended sample collection, handling and storage procedures, technical error, or sample mix-up. False negative results may occur if a virus is present at a level below the analytical limit of detection. Viral nucleic acid may persist in vivo, independent of virus viability. Detection of analyte target(s) does not imply that the corresponding virus(es) are infectious or are the causative agents for clinical symptoms. Recent patient exposure to FluMist or other live attenuated influenza vaccines may cause inaccurate positive results. LABORATORYOrdered By: Lor Shay on 10-28-2024 fentaNYL Screen Ql (U) Negative 2 *NA* (10/28/24 8:16 PM) Invalid Interpretation Code Negative AH ADM SS Comment on above: Interpretive Data: T esting has been performed FOR MEDICAL PURPOSES ONLY. oxyCODONE Ql (U) Negative 3 *NA* (10/28/24 8:16 PM) Invalid Interpretation Code Negative AH ADM SS Comment on above: Interpretive Data: T esting has been performed FOR MEDICAL PURPOSES ONLY. LABORATORYOrdered By: SYSTEM SYSTEM on 10-28-2024 Troponin I.cardiac DL <= 0.01 ng/mL [Mass/Vol] 4 ng/L Normal 0 - 51 ng/L AO ADM SS Comment on above: Interpretive Data: H igh Sensitive Troponin I Reference Ranges: Female: 0-51 ng/L Male: 0-76 ng/L Testing performed on [employer] using a homogeneous sandwich chemiluminescent immunoassay based on [employer] technology. aPTT Coag (PPP) [Time] 33.4 s Normal 25.0 - 35.0 seconds AO [employer] SS Comment on above: Interpretive Data: F or Heparin anticoagulation therapy, the recommended therapeutic range is: 45.4-75.9 seconds. Patients on heparin therapy may have an extreme result. Basophils (Bld) [#/Vol] 0.0 103/mcL Normal 0.0 - 0.3 10^3/mcL AO Workflow SS Basophils/100 WBC (Bld) 0.5 % Normal 0.0 - 2.5 % AO Workflow SS Calcium [Mass/Vol] 9.4 mg/dL Normal 8.4 - 10. 2 mg/dL AO ADM SS Chloride [Moles/Vol] 106 mmol/L Normal 98 - 10 7 mmol/L AO ADM SS CO2 [Moles/Vol] 31 mmol/L High 22 - 29 mmol/L AO ADM SS Creatinine [Mass/Vol] 0.73 mg/dL Normal 0.51 - 0.95 mg/dL AO ADM SS Electrolyte Balance 4.0 mEq/L Normal 4.0 - 15 .0 mEq/L AO ADM SS Eosinophil, Absolute 0.2 103/mcL Normal 0.0 - 0 .7 10^3/mcL AO Workflow SS Eosinophils/100 WBC (Bld) 3.1 % Normal 0.0 - 6.0 % AO Workflow SS Erythrocyte distribution width (RBC) [Ratio] 13.7 % Normal 11.5 - 15.5 % AO Workflow SS Estimated Glomerular Filtration Rate 97 ml/min/1.73sqm Invalid Interpretation Code AO Chemistry S Comment on above: Interpretive Data: Stages of Chronic Kidney Disease (CKD) Stage Description eGFR(ml/min/1.73 sq.m.) CKD 1 Normal kidney function or >=90 normal kindney function with possible kidney damage (ex. Proteinuria) CKD 2 Kidney damage with mild loss 60-89 of kidney function CKD 3a Mild to moderate loss of kidney 45-59 function CKD 3b Moderate to severe loss of 30-44 of kindey function CKD 4 Severe loss of kidney function 15-29 CKD 5 Kidney failure <15 Note: (go live 2024) the eGFR calculation was updated to the 2020 CKD-EPI creatinine equation without a race factor to calculate the eGFR results. Ethanol [Mass/Vol] mg/dL Invalid Interpretation Code AO ADM SS Glucose [Mass/Vol] 174 mg/dL High 70 - 105 mg/dL AO ADM SS Hematocrit (Bld) [Volume fraction] 43.5 % Normal 34.0 - 46.0 % AO Workflow SS Hemoglobin (Bld) [Mass/Vol] 14.7 G/dL Normal 12.0 - 16.0 G/dL AO Workflow SS INR Coag (PPP) [Relative time] 1.1 {INR} Invalid Interpretation Code AO HemoHub SS Comment on above: Interpretive Data: Elizabeth briones [employer] (CHEST, 1991, 102:312S-25S) recommended therapeutic range for oral anticoagulant therapy is: LOW RISK: Prophylaxis of venous thrombosis INR: 2.0-3.0 Treatment of pulmonary embolism 2.0-3.0 Prevention of systemic embolism 2.0-3.0 HIGH RISK: Mechanical prosthetic valves 2.5-3.5 Lymphocytes (Bld) [#/Vol] 2.0 103/mcL Normal 0.9 - 4.3 10^3/mcL AO Workflow SS Lymphocytes/100 WBC (Bld) 31.1 % Normal 20.0 - 40.0 % AO Workflow SS Magnesium [Mass/Vol] 1.8 mg/dL Normal 1.8 - 2 .4 mg/dL AO ADM SS MCH (RBC) [Entitic mass] 31.3 pg Normal 27.0 - 33.0 pg AO Workflow SS MCHC 33.8 G/dL Normal 32.0 - 36.0 G/dL AO Workflow SS MCV (RBC) [Entitic vol] 92.8 fL Normal 80.0 - 99.0 fL AO Workflow SS Monocyte distribution width Auto (Bld) [Entitic vol] 19.31 1 Normal 0.00 - 20.00 AO Workflow SS Comment on above: Result Comment: For ED adult patients suspected of sepsis, MDW<=20.0 does not rule out sepsis or risk of sepsis Monocytes (Bld) [#/Vol] 0.3 103/mcL Normal 0.1 - 1.4 10^3/mcL AO Workflow SS Monocytes/100 WBC (Bld) 5.3 % Normal 2.0 - 13.0 % AO Workflow SS Neutrophils (Bld) [#/Vol] 3.9 103/mcL Normal 2.3 - 8.1 10^3/mcL AO Workflow SS Neutrophils/100 WBC (Bld) 60.0 % Normal 50.0 - 75.0 % AO Workflow SS Platelet mean volume (Bld) [Entitic vol] 7.0 fL Normal 6.6 - 10.5 fL AO Workflow SS Platelets (Bld) [#/Vol] 225 103/mcL Normal 150 - 450 10^3/mcL AO Workflow SS Potassium [Moles/Vol] 3.6 mmol/L Normal 3.5 - 5.1 mmol/L AO ADM SS PT Coag (PPP) [Time] 12.8 s Normal 9.0 - 1 4.4 seconds AO HemoHub SS RBC (Bld) [#/Vol] 4.68 106/mcL Normal 4.10 - 5.30 10^6/mcL AO Workflow SS Salicylates [Mass/Vol] 0.6 mg/dL Low 2.8 - 20.0 mg/dL AO ADM SS Sodium [Moles/Vol] 141 mmol/L Normal 136 - 145 mmol/L AO ADM SS Troponin I.cardiac DL <= 0.01 ng/mL [Mass/Vol] ng/L Normal 0 - 51 ng/L AO ADM SS Comment on above: Interpretive Data: H igh Sensitive Troponin I Reference Ranges: Female: 0-51 ng/L Male: 0-76 ng/L Testing performed on [employer] using a homogeneous sandwich chemiluminescent immunoassay based on [employer] technology. Urea nitrogen [Mass/Vol] 10 mg/dL Normal 7 - 18 mg/dL AO ADM SS Urea nitrogen/Creatinine [Mass ratio] 14 ratio Normal 7 - 27 ratio AO ADM SS WBC (Bld) [#/Vol] 6.6 103/mcL Normal 4.5 - 10.8 10^3/mcL AO Workflow SS LABORATORYOrdered By: Grace Patel on 10-28-2024 Acetaminophen [Mass/Vol] mcg/mL Invalid Interpretation Code 10.0 - 30.0 mcg/mL AO Chemistry S LABORATORYOrdered By: Stefanie Hall on 10-28-2024 Blood Glucose Interventions Notify physician (10/28/24 5:18 PM) [facility] Blood Glucose Testing Reason Routine (10/28/24 5:18 PM) [facility] Glucose [Mass/Vol] 200 mg/dL [facility] Time of Stated Blood Glucose [id number] [facility] MGon 10-28-2024 Magnesium [Mass/Vol] 1.8 mg/dL Normal 1.8-2.4 [facility] Comment on above: Performed By: #### U DRUG #### [address] [address] #### UOXYS, UFENTS #### [facility] [address] [place] [address] PROon 10-28-2024 PT Coag (PPP) [Time] 12.8 s Normal 9.0-14.4 [facility] Comment on above: Performed By: #### A TRE, CBC, GFR, MDW, TROPHS, PRO, BMP, APTT, ADIFF, MG #### [place] [address] PT International Ratio 1.1 Normal [facility] Comment on above: Result Comment: [employer] (CHEST, 1991, 102:312S-25S) recommended therapeutic range for oral anticoagulant therapy is: LOW RISK: Prophylaxis of venous thrombosis INR: 2.0-3.0 Treatment of pulmonary embolism 2.0-3.0 Prevention of systemic embolism 2.0-3.0 HIGH RISK: Mechanical prosthetic valves 2.5-3.5 Performed By: #### A TRE, CBC, GFR, MDW, TROPHS, PRO, BMP, APTT, ADIFF, MG #### [address] [address] SALon 10-28-2024 Salicylate Level 0.6 mg/dL Low 2.8-20.0 [facility] Comment on above: Performed By: #### U DRUG #### [place] [address] #### UOXYS, UFENTS #### [address] 10-28-2024 High Sensitivity Troponin I 4 ng/L Normal 0-51 [facility] Comment on above: Result Comment: High Sensitive Troponin I Reference Ranges: Female: 0-51 ng/L Male: 0-76 ng/L Testing performed on [employer] using a homogeneous sandwich chemiluminescent immunoassay based on [employer] technology. Performed By: #### U DRUG #### [place] [address] #### UOXYS, UFENTS #### [place] [address] High Sensitivity Troponin I <[address] Comment on above: Result Comment: High Sensitive Troponin I Reference Ranges: Female: 0-51 ng/L Male: 0-76 ng/L Testing performed on [employer] using a homogeneous sandwich chemiluminescent immunoassay based on [employer] technology. Performed By: #### A TRE, CBC, GFR, MDW, TROPHS, PRO, BMP, APTT, ADIFF, MG #### [place] [id number] UAon 10-28-2024 Color (U) Yellow Normal [facility] Comment on above: Performed By: #### U DRUG #### [address] [address] #### UOXYS, UFENTS #### [facility] [address] [place] [address] Glucose (U) [Mass/Vol] Negative Normal Negative [facility] Comment on above: Performed By: #### U DRUG #### [address] [address] #### UOXYS, UFENTS #### [facility] [address] [place] [address] Ketones Ql (U) Negative Normal Negative [facility] Comment on above: Performed By: #### U DRUG #### [address] [address] #### UOXYS, UFENTS #### [facility] [address] [place] [address] UA Appear Clear Normal Clear [facility] Comment on above: Performed By: #### U DRUG #### [address] [address] #### UOXYS, UFENTS #### [facility] [address] [place] [address] UA Blood Negative Normal Negative [facility] Comment on above: Performed By: #### U DRUG #### [address] [address] #### UOXYS, UFENTS #### [facility] [address] [place] [address] UA Leuk Est Negative Normal Negative [facility] Comment on above: Performed By: #### U DRUG #### [address] [address] #### UOXYS, UFENTS #### [facility] [address] [place] [address] UA Nitrite Negative Normal Negative [facility] Comment on above: Performed By: #### U DRUG #### [place] [address] #### UOXYS, UFENTS #### [address] [address] UA pH 6.5 Normal 5.0 - 8.0 [facility] Comment on above: Performed By: #### U DRUG #### [place] [address] #### UOXYS, UFENTS #### [place] [address] UA Protein Negative Normal Negative [facility] Comment on above: Performed By: #### U DRUG #### [place] [address] #### UOXYS, UFENTS #### [place] [address] UA Spec Grav 1.010 Abnormal 1.015-1.02 5 [facility] Comment on above: Performed By: #### U DRUG #### [place] [address] #### UOXYS, UFENTS #### [place] [address] UA Specimen Type Clean Catch Normal [facility] Comment on above: Performed By: #### U DRUG #### [place] [address] #### UOXYS, UFENTS #### [place] [address] UA Urobilinogen 0.2 E.U./dL Normal 0.2-1.0 [facility] Comment on above: Performed By: #### U DRUG #### [place] [address] #### UOXYS, UFENTS #### [place] [address] Urobilinogen (U) [Mass/Vol] Negative Normal Negative [facility] Comment on above: Performed By: #### U DRUG #### [place] [address] #### UOXYS, UFENTS #### [facility] [address] [place] [address] UDRUGon 10-28-2024 Amphetamine (u) Negative Normal Negative [facility] Comment on above: Performed By: #### U DRUG #### [address] [address] #### UOXYS, UFENTS #### [facility] [address] [place] [address] Barbiturate (u) Negative Normal Negative [facility] Comment on above: Performed By: #### U DRUG #### [address] [address] #### UOXYS, UFENTS #### [facility] [address] [place] [address] Benzodiazepine (u) Negative Normal Negative [facility] Comment on above: Performed By: #### U DRUG #### [address] [address] #### UOXYS, UFENTS #### [facility] [address] [place] [address] Cannabinoid (u) Negative Normal Negative [facility] Comment on above: Performed By: #### U DRUG #### [address] [address] #### UOXYS, UFENTS #### [facility] [address] [place] [address] Cocaine Ql (U) Negative Normal Negative [facility] Comment on above: Performed By: #### U DRUG #### [address] [address] #### UOXYS, UFENTS #### [facility] [address] [place] [address] Methadone Ql (U) Negative Normal Negative [facility] Comment on above: Performed By: #### U DRUG #### [address] [address] #### UOXYS, UFENTS #### [facility] [address] [place] [address] Opiate (u) Negative Normal Negative [facility] Comment on above: Performed By: #### U DRUG #### [address] [address] #### UOXYS, UFENTS #### [facility] [address] [place] [address] PCP (u) Negative Normal Negative [facility] Comment on above: Performed By: #### U DRUG #### [address] [address] #### UOXYS, UFENTS #### [facility] [address] [place] [address] Urine Drugs screened: See Below Normal [facility] Comment on above: Result Comment: This drug screen is a presumptive screening only. No confirmation will be performed unless requested. Drugs screened include: Threshold Amphetamines/Methamphetamines 1,000 ng/mL Barbiturates 200 ng/mL Benzodiazepine metabolites 200 ng/mL Cannabinoids (THC metabolites) 50 ng/mL Cocaine 300 ng/mL Opiates 300 ng/mL Methadone 300 ng/mL Phencyclidine (PCP) 25 ng/mL Testing has been performed FOR MEDICAL PURPOSES ONLY. Performed By: #### U DRUG #### [address] [address] #### UOXYS, UFENTS #### [address] [address] XR CHEST 1 VIEWon 10-28-2024 XR CHEST 1 VIEW ORIGINAL EXAMINATION: ONE XRAY VIEW OF THE CHEST10/28/2024 6:14 pm COMPARISON: Chest radiograph 04/11/2022 HISTORY: ORDERING SYSTEM PROVIDED HISTORY: Reason for Exam: pain FINDINGS: Stable cardiomediastinal silhouette. Low lung volumes. Streaky bibasilar opacities may represent atelectasis. No focal consolidation. No pneumothorax or large pleural effusion. Degenerative changes of the spine. IMPRESSION: Hypoventilatory changes with no other acute radiographic findings. I have personally reviewed the images of this examination and agree with the resident's findings and interpretation. Interpreted by: Osvaldo Swenson Preliminary Report By: Nisha Benito Electronically signed By Osvaldo Swenson Dictated Date: 10/28/2024 6:17:33 PM Prelim Date: 10/28/2024 6:19:29 PM Sign Date: 10/28/2024 6:35:43 PM Ordering Provider: STELLA Zavaleta [facility] CNOVon 10-20-2024 CNOV Normal [facility] CNOVon 09-29-2024 CNOV Normal [facility] 25(OH)D3 SerPl-mCncon 2024 25-hydroxyvitamin D3 [Mass/Vol] 37.0 ng/mL Normal 31.0-80.0 [facility] Comment on above: Order Comment: Speci men Type: BLOOD SPECIMENOrdering Facility: [facility] Address: [address] [place] [address] Result Comment: Clas sification of 25 [place] Vitamin D status:Deficiency/Insufficiency: < or = 30 ng/ml.Sufficiency/Optimal Levels: 31-80 ng/mLToxicity: > 100 ng/mL.Test performed by chemiluminescent immunoassay. Performed By: #### 1 989-3 ####[facility] [id number] [place] [address] [place] ALBUMIN/CREATININE RATIO, UR INEon 09-19-2024 Albumin DL <= 20 mg/L (U) [Mass/Vol] mg/dL Normal [facility] Comment on above: Order Comment: Speci men Type: URINE SPECIMENOrdering Facility: [facility] Address: [address] [place] [address] Performed By: #### U ACR ####[facility] [id number] [place] [address] [place] Albumin/Creatinine (U) [Mass ratio] Normal [facility] Comment on above: Order Comment: Speci men Type: URINE SPECIMENOrdering Facility: [facility] Address: [address] [place] [address] Result Comment: Not calculatedAdult Male and Female Nephrotic Criteria:<30 mg/g is considered normal to mildly [id number] mg/g is considered moderately increased>300 mg/g is considered severely increasedKDIGO. (2013). KDIGO 2012 Clinical Practice Guideline for the Evaluation and Management of Chronic Kidney Disease. Official Journal of the International Society of Nephrology, 3(1), 1-150. Performed By: #### U ACR ####[facility] LABCLIA [id number] [address] [place] [address] [place] Creatinine (U) [Mass/Vol] 17.1 mg/dL Low 20.0-300.0 [facility] Comment on above: Order Comment: Speci men Type: URINE SPECIMENOrdering Facility: [facility] Address: [address] [place] [address] Performed By: #### U ACR ####[facility] LABCLIA [id number] [address] [place] [address] [place] CBC panel Auto (Bld)on 09-19 Erythrocyte distribution width (RBC) [Ratio] 13.2 % Normal 11.5-15.0 [facility] Comment on above: Order Comment: Speci men Type: BLOOD SPECIMENOrdering Facility: [facility] Address: [address] [place] [address] Performed By: #### 5 8410-2 ####[facility] LABIA [id number] [address] [place] [address] [place] Hematocrit (Bld) [Volume fraction] 47.2 % High 36.0-46.0 [facility] Comment on above: Order Comment: Speci men Type: BLOOD SPECIMENOrdering Facility: [facility] Address: [address] [place] [address] Performed By: #### 5 8410-2 ####[facility] LABIA [id number] [address] [address] [place] Hemoglobin (Bld) [Mass/Vol] 15.2 g/dL Normal 11.5-15.5 [facility] Comment on above: Order Comment: Speci men Type: BLOOD SPECIMENOrdering Facility: [facility] Address: [address] [place] [address] Performed By: #### 5 8410-2 ####[facility] LABCLIA [id number] [place] [address] [place] MCH (RBC) [Entitic mass] 30.5 pg Normal 26.0-34.0 [facility] Comment on above: Order Comment: Speci men Type: BLOOD SPECIMENOrdering Facility: [facility] Address: [address] [place] [address] Performed By: #### 5 8410-2 ####[facility] LABIA [id number] [place] [address] [place] MCHC (RBC) [Mass/Vol] 32.2 g/dL Normal 30.5-36.0 [facility] Comment on above: Order Comment: Speci men Type: BLOOD SPECIMENOrdering Facility: [facility] Address: [address] [place] [address] Performed By: #### 5 8410-2 ####[facility] LABIA [id number] [place] [address] [place] MCV (RBC) [Entitic vol] 94.6 fL Normal 80.0-100.0 [facility] Comment on above: Order Comment: Speci men Type: BLOOD SPECIMENOrdering Facility: [facility] Address: [address] [place] [address] Performed By: #### 5 8410-2 ####[facility] LABIA [id number] [place] [address] [place] Nucleated RBC (Bld) [#/Vol] 10*3/uL Normal <0.01 [facility] Comment on above: Order Comment: Speci men Type: BLOOD SPECIMENOrdering Facility: [facility] Address: [address] [place] [address] Performed By: #### 5 8410-2 ####[facility] LABIA [id number] [place] [address] [place] Platelet mean volume (Bld) [Entitic vol] 9.3 fL Normal 9.0-12.7 [facility] Comment on above: Order Comment: Speci men Type: BLOOD SPECIMENOrdering Facility: [facility] Address: [address] [place] [address] Performed By: #### 5 8410-2 ####[facility] LABIA [id number] [place] [address] [place] Platelets (Bld) [#/Vol] 298 10*3/uL Normal 150-400 [facility] Comment on above: Order Comment: Speci men Type: BLOOD SPECIMENOrdering Facility: [facility] Address: [address] [place] [address] Performed By: #### 5 8410-2 ####[facility] LABIA [id number] [place] [address] [place] RBC (Bld) [#/Vol] 4.99 10*6/uL Normal 3.90-5.20 [facility] Comment on above: Order Comment: Speci men Type: BLOOD SPECIMENOrdering Facility: [facility] Address: [address] [place] [address] Performed By: #### 5 8410-2 ####[facility] LABIA [id number] [place] [address] [place] WBC (Bld) [#/Vol] 9.49 10*3/uL Normal 3.70-11.00 [facility] Comment on above: Order Comment: Speci men Type: BLOOD SPECIMENOrdering Facility: [facility] Address: [address] [place] [address] Performed By: #### 5 8410-2 ####[facility] LABIA [id number] [place] [id number] [place] Comprehensive metabolic 2000 panelon 09-19-2024 Albumin [Mass/Vol] 3.9 g/dL Normal 3.9-4.9 [facility] Comment on above: Order Comment: Speci men Type: BLOOD SPECIMENOrdering Facility: [facility] Address: [address] [place] [address] Performed By: #### 2 4323-8, ####[facility] LABCLIA [id number] [facility] [id number], [place] [address] [place] ALP [Catalytic activity/Vol] 74 U/L Normal 34-123 [facility] Comment on above: Order Comment: Speci men Type: BLOOD SPECIMENOrdering Facility: [facility] Address: [address] [place] [address] Performed By: #### 2 4322-8, ####[facility] LABCLIA [id number] [facility] AVENUEMETROPOLITAN STATE HOSPITALK [address] [place] [address] [place] ALT [Catalytic activity/Vol] 16 U/L Normal 7-38 [facility] Comment on above: Order Comment: Speci men Type: BLOOD SPECIMENOrdering Facility: [facility] Address: [address] [place] [address] Performed By: #### 2 8, ####[facility] LABCLIA [id number] [facility] [address] [place] [address] [place] Anion gap [Moles/Vol] 11 mmol/L Normal 8-15 [facility] Comment on above: Order Comment: Speci men Type: BLOOD SPECIMENOrdering Facility: [facility] Address: [address] [place] [address] Performed By: #### 2 4323-8, ####[facility] LABCLIA [id number] [facility] [address] [place] [address] [place] AST [Catalytic activity/Vol] 35 U/L Normal 13-35 [facility] Comment on above: Order Comment: Speci men Type: BLOOD SPECIMENOrdering Facility: [facility] Address: [address] [place] [address] Performed By: #### 2 432-8, ####[facility] LABCLIA [id number] [address] [address] [place] Bilirubin [Mass/Vol] 0.3 mg/dL Normal 0.2-1.3 [facility] Comment on above: Order Comment: Speci men Type: BLOOD SPECIMENOrdering Facility: [facility] Address: [address] [place], [place] [address] Performed By: #### 2 8, ####[facility] LABCLIA [id number] [place] [address] [place] Calcium [Mass/Vol] 9.7 mg/dL Normal 8.5-10.2 [facility] Comment on above: Order Comment: Speci men Type: BLOOD SPECIMENOrdering Facility: [facility] Address: [address] [place] [address] Performed By: #### 2 4322-10, ####[facility] LABCLIA [id number] [place] [address] [place] Chloride [Moles/Vol] 101 mmol/L Normal 98-107 [facility] Comment on above: Order Comment: Speci men Type: BLOOD SPECIMENOrdering Facility: [facility] Address: [address] [place], [place] [address] Performed By: #### 2 4322-10, ####[facility] LABCLIA [id number] [address] [address] [place] CO2 [Moles/Vol] 25 mmol/L Normal 22-30 [facility] Comment on above: Order Comment: Speci men Type: BLOOD SPECIMENOrdering Facility: [facility] Address: [address] [place], [place] [address] Performed By: #### 2 4323-8, ####[facility] LABCLIA [id number] [address] [address] [place] Creatinine [Mass/Vol] 0.79 mg/dL Normal 0.58-0.96 [facility] Comment on above: Order Comment: Barak chavez Type: BLOOD SPECIMENOrdering Facility: [facility] Address: [address] [place] [address] Performed By: #### 2 4323-8, ####[facility] LABIA [id number] [place] [address] [facility] Creatinine and Glomerular filtration rate.predicted panel (S/P/Bld) 89 mL/min/1.73m??? Normal >=60 [facility] Comment on above: Order Comment: Barak chavez Type: BLOOD SPECIMENOrdering Facility: [facility] Address: [address] [place] [address] Result Comment: Carolin mated Glomerular Filtration Rate (eGFR) is calculated using the 2020 CKD-EPI creatinine equation. This equation utilizes serum creatinine, sex, and age as parameters. The creatinine assay has traceable calibration to isotope dilution-mass spectrometry. Refer to KDIGO guidelines for clinical interpretation. In patients with unstable renal function, e.g. those with acute kidney injury, the eGFR may not accurately reflect actual GFR. Performed By: #### 2 4323-8, ####[facility] LABIA [id number] [place] [id number] [place] Glucose [Mass/Vol] 114 mg/dL High 74-99 [facility] Comment on above: Order Comment: Barak chavez Type: BLOOD SPECIMENOrdering Facility: [facility] Address: [address] [place] [address] Result Comment: The [employer] (ADA) provides guidance for cutoff values for fasting glucose and random glucose. The ADA defines fasting as no caloric intake for at least 8 hours. Fasting plasma glucose results between 100 to 125 mg/dL indicate increased risk for diabetes (prediabetes).Fasting plasma glucose results greater than or equal to 126 mg/dL meet the criteria for diagnosis of diabetes. In the absence of unequivocal hyperglycemia, results should be confirmed by repeat testing. In a patient with classic symptoms of hyperglycemia or hyperglycemic crisis, random plasma glucose results greater than or equal to 200 mg/dL meet the criteria for diagnosis of diabetes.Reference: Standards of Medical Care in Diabetes 2016, [place] Diabetes Association. Diabetes Care. 2016.39(Suppl 1). Performed By: #### 2 4322-10, ####[facility] LABCLIA [id number] [address] [address] [place] Potassium [Moles/Vol] 4.4 mmol/L Normal 3.7-5.1 [facility] Comment on above: Order Comment: Speci men Type: BLOOD SPECIMENOrdering Facility: [facility] Address: [address] [place] [address] Performed By: #### 2 4322-10, ####[facility] LABCLIA [id number] [address] [address] [place] Protein [Mass/Vol] 6.6 g/dL Normal 6.3-8.0 [facility] Comment on above: Order Comment: Speci men Type: BLOOD SPECIMENOrdering Facility: [facility] Address: [address] [place] [address] Performed By: #### 2 4322-10, ####[facility] LABIA [id number] [address] [address] [place] Sodium [Moles/Vol] 137 mmol/L Normal 136-144 [facility] Comment on above: Order Comment: Speci men Type: BLOOD SPECIMENOrdering Facility: [facility] Address: [address] [place] [address] Performed By: #### 2 4322-10, ####[facility] LABCLIA [id number] [address] [address] [place] Urea nitrogen [Mass/Vol] 16 mg/dL Normal 7-21 [facility] Comment on above: Order Comment: Speci men Type: BLOOD SPECIMENOrdering Facility: [facility] Address: [address] [place] [address] Performed By: #### 2 4323-8, 95346-1 ####[facility] LABIA [id number] [place] [id number] [place] HbA1c (Bld)on 09-19-2024 Average glucose Estimated from glycated hemoglobin (Bld) [Mass/Vol] 123 mg/dL Normal [facility] Comment on above: Order Comment: Barak men Type: BLOOD SPECIMENOrdering Facility: [facility] Address: [address] [place] [address] Result Comment: eAG: (Estimated average glucose) is a calculated value from HgbA1c and is computer help desk representative of the average blood glucose level in the last 2-3 month period. Performed By: #### 5 5454-3 ####[facility] LABIA [id number] [place] [address] [place] HbA1c (Bld) [Mass fraction] 5.9 % High 4.3-5.6 [facility] Comment on above: Order Comment: Barak chavez Type: BLOOD SPECIMENOrdering Facility: [facility] Address: [address] [place] [address] Result Comment: Amer [place] Diabetes Association guidelines indicate that patients with HgbA1c in the range 5.7-6.4% are at increased risk for development of diabetes, and intervention by lifestyle modification may be beneficial. HgbA1c greater or equal to 6.5% is considered diagnostic of diabetes. Performed By: #### 5 5454-3 ####[facility] LABIA [id number] [address] [address] [place] Lipid 1996 panelon 5 Cholesterol [Mass/Vol] 173 mg/dL Normal <200 [facility] Comment on above: Order Comment: Barak chavez Type: BLOOD SPECIMENOrdering Facility: [facility] Address: [address] [place] [address] Result Comment: <200 mg/dL, Desirable 200-239 mg/dL, Borderline high>239 mg/dL, High Performed By: #### 2 4331-1 ####[facility] LABCLIA [id number] [address] [address] [facility] [id number] [place] [address] [place] Cholesterol in HDL [Mass/Vol] 44 mg/dL Normal >39 [facility] Comment on above: Order Comment: Speci men Type: BLOOD SPECIMENOrdering Facility: [facility] Address: [address] [place] [address] Result Comment: 40-5 9 mg/dL, Acceptable>59 mg/dL, High: Negative risk factor for coronary heart disease<40 mg/dL, Low: Positive risk factor for coronary heart disease Performed By: #### 2 4331-1 ####[facility] LABCLIA [id number] [id number] [place] [address] [place] Cholesterol in LDL [Mass/Vol] 99 mg/dL Normal <100 [facility] Comment on above: Order Comment: Speci men Type: BLOOD SPECIMENOrdering Facility: [facility] Address: [address] [place] [address] Result Comment: <100 mg/dL, Optimal 100-129 mg/dL, Near optimal/above optimal 130-159 mg/dL, Borderline high 160-189 mg/dL, High>189 mg/dL, Very highSecondary prevention optimal LDL Cholesterol levels are recommended to be <70 mg/dLLDL cholesterol is calculated using the Rodriguez-NIH equation. Performed By: #### 2 4331-1 ####[facility] LABCLIA [id number] [address] [address] [facility] [id number] [place] [address] [place] Cholesterol in LDL/Cholesterol in HDL [Mass ratio] 2.25 {ratio} Normal <2.54 [facility] Comment on above: Order Comment: Speci men Type: BLOOD SPECIMENOrdering Facility: [facility] Address: [address] [place] [address] Result Comment: Stanislaw gibson:1. National Cholesterol Education Program ATP III Guideline At-A-Glance Quick Desk Reference: National Heart, Lung, and Blood Opal. National Institutes of Health. 2001: NIH Publication No. 01-3305.2. An International Atherosclerosis Society position paper: global recommendations for the management of dyslipidemia: executive summary, Atherosclerosis. 2014: 232(2):410-413. Performed By: #### 2 4331-1 ####[facility] LABCLIA [id number] [id number] [place] [address] [facility] Cholesterol in VLDL [Mass/Vol] 29 mg/dL Normal <30 [facility] Comment on above: Order Comment: Speci men Type: BLOOD SPECIMENOrdering Facility: [facility] Address: [address] [place] [address] Performed By: #### 2 4331-1 ####[facility] LABCLIA [id number] [id number] [place] [address] [place] [address] [facility] Cholesterol non HDL [Mass/Vol] 129 mg/dL Normal <130 [facility] Comment on above: Order Comment: Speci men Type: BLOOD SPECIMENOrdering Facility: [facility] Address: [address] [place] [address] Result Comment: <130 mg/dL, Optimal 130-159 mg/dL, Near optimal/above optimal 160-189 mg/dL, Borderline high 190-219 mg/dL, High>219 mg/dL, Very highSecondary prevention optimal non HDL Cholesterol levels are recommended to be <100 mg/dL Performed By: #### 2 4331-1 ####[facility] LABCLIA [id number] [address], [address] [id number] [address] Cholesterol.total/Cho lesterol in HDL [Mass ratio] 3.93 {ratio} Normal <5.10 [facility] Comment on above: Order Comment: Speci men Type: BLOOD SPECIMENOrdering Facility: [facility] Address: [address] [place] [address] Performed By: #### 2 4331-1 ####[facility] LABCLIA [id number] [id number] [place] [address] FASTING TIME 12 hrs Normal [facility] Comment on above: Order Comment: Speci men Type: BLOOD SPECIMENOrdering Facility: [facility] Address: [address] [place] [address] Performed By: #### 2 4331-1 ####[facility] LABCLIA [id number] [id number] [place] [address] [place] Triglyceride [Mass/Vol] 175 mg/dL High <150 [facility] Comment on above: Order Comment: Speci men Type: BLOOD SPECIMENOrdering Facility: [facility] Address: [address] [place], [place] [address] Result Comment: <150 mg/dL, Normal 150-199 mg/dL, Borderline high 200-499 mg/dL, High>499 mg/dL, Very high Performed By: #### 2 4331-1 ####[facility] LABCLIA [id number] [place] [address] [place] [facility] [id number] [place] [address] [place] Magnesium SerPl-mCncon 09-19 Magnesium [Mass/Vol] 2.1 mg/dL Normal 1.7-2.3 [facility] Comment on above: Order Comment: Speci men Type: BLOOD SPECIMENOrdering Facility: [facility] Address: [address] [place] [address] Performed By: #### 2 4323-8, 65005-1 ####[facility] LABCLIA [id number] [facility] CLINICJosé Miguel [address] [place] CNOVon 09-16-2024 CNOV Normal [facility] UA DIP, URINE (POC)on 2024 BILIRUBIN UA (POCT) Negative Negative [facility] CLARITY UA (POCT) Clear [facility] COLOR UA (POCT) Yellow [facility] GLUCOSE UA (POCT) Negative Negative mg/dL [facility] Hemoglobin Ql (U) Trace-intact Abnormal Negative [facility] Interpretation and review of laboratory results Abnormal [facility] KETONE UA (POCT) Negative Negative mg/dL [facility] LEUKOCYTES UA (POCT) Small Abnormal Negative [facility] NITRITE UA (POCT) Negative Negative [facility] PH UA (POCT) 6 4.5 - 8.0 [facility] Protein Ql (U) Negative Negative mg/dL [facility] SPECIFIC GRAVITY UA (POCT) 1.015 1.005 - 1.030 [facility] UROBILINOGEN UA (POCT) 0.2 Normal E.U./dL [facility] Location:[facility], [address] [place] [address], [place], [address] [facility]INT [facility] CARE [facility] CNOVon 09-15-2024 CNOV Normal [facility] XR FOOT 3V AP/LAT/OBL BILon 09-15-2024 XR FOOT 3V AP/LAT/OBL BRIEN Normal [facility] GIGI SCREENING W TOMOon 07-20 GIGI SCREENING W FARIDEH Normal [facility] CNOVon 07-12-2024 CNOV Normal [facility] Emergency Department Summary on 07-06-2024 Emergency Department Summary [facility] Medical Records Department [address] [place] [address] Emergency Department Summary 07/06/24 MR#: [id number] Acct: [id number] Name: OLGA LIDIA TELLO Rep #: [id number] : 1970 53 From: Alton Lott DO PCP: Dr. Lulu Luciano MD Status:DEP ER Location: ED HPI History of Present Illness HPI Narrative: Patient presents with left thigh and knee pain and swelling that has been getting worse since a fall 1 week ago. Patient states she had outpatient x-rays initially which were read as negative. Patient states she followed up with the orthopedic office today who noted that there could be a fracture of her distal femur. Patient was then referred to the emergency department for CT scan as well as a venous duplex for possible DVT. Patient describes her pain as sharp. Patient states it is worse with any movement or weightbearing. Patient denies any paresthesias or weakness. Patient also complains of pain over her left shoulder and clavicle. Patient denies any chest pain or shortness of breath. Chief Complaint: Lower Extremity Injury Informant: patient Occured/Mechanism Mechanism/Context: Yes fall Onset/Context/Timing Onset: Weeks (1) Context: Sudden Onset Timing: Continuous Quality of Pain: Sharp Location: Left knee Worsened by: Movement, weightbearing Relieved by: Nothing Associated Symptoms Associated Symptoms: Negative for Parasthesia, Weakness or Loss of Funtion PFSH PFSH Medical History Distal radius fracture, right Wears glasses Depression Anxiety Diabetes Bladder disease Arthritis Low iron High cholesterol Easy bruising Back pain TIA (transient ischemic attack) Vertigo Restless legs Dietary restriction History of IBS Gastric reflux Shortness of breath on exertion CPAP (continuous positive airway pressure) dependence Non-smoker Leg cramps History of pain when walking History of stress test Contusion of left shoulder Left shoulder strain Callus of toe Foot deformity Neuropathy of both feet Home Medications ???Medication ???Instructions ???Recorded ???Last Taken ???Type duloxetine 60 mg capsule,delayed 120 mg PO DAILY 01/10/15 05/25/24 History release gabapentin 800 mg tablet 800 mg PO TID NEUROPATHY 07/24/22 05/25/24 History iron 50 mg iron tablet 1 tab PO DAILY 07/24/22 05/25/24 H istory magnesium 250 mg tablet 250 mg PO DAILY 07/24/22 05/25/24 History calcium 500 mg (as 1 tab PO DAILY 04/06/24 05/25/24 H istory carbonate)-vitamin D3 3.125 mcg (125 unit) tablet fluticasone propionate 50 2 spray intranasal DAILY 04/06/24 05/25/24 History mcg/actuation nasal spray,suspension omeprazole 40 mg capsule,delayed 40 mg PO DAILY 04/06/24 05/25/24 H istory release semaglutide 2 mg/dose (8 mg/3 mL) 2 mg subcut CERDA 04/06/24 05/15/24 History subcutaneous pen injector (Ozempic) acetaminophen 500 mg tablet 1,000 mg (2 x 500 mg) PO Q8H PRN 0 04/15/24 Unknown Rx (Acetaminophen Extra Strength) PRN fever or pain 20 days #60 tabs oxycodone 5 mg tablet 5 mg PO Q8H PRN severe pain 7 days 04/15/24 05/25/24 Rx #12 TABLETS oxycodone 5 mg tablet 5 mg PO Q6H PRN pain 7 days #28 Unknown Rx tabs oxycodone-acetaminophen 5 mg-325 1 tab PO Q6H PRN PRN Pain 3 days 0 07/06/24 Unknown Rx mg tablet #12 TABLETS Allergy/AdvReac Type Severity Reaction Status Date / Time Sulfa (Sulfonamide Allergy Severe Hives Verified 05/26/24 10:37 Antibiotics) Surgical History History of hysterectomy (04/15/24) History of esophagogastroduodenoscopy (EGD) Hx of colonoscopy Hx laparoscopic cholecystectomy History of Hx of toe surgery Hx of foot surgery Hx of toe surgery Hx of sinus surgery Hx of elbow surgery Social History Smoking Status: Never smoker ROS ROS ED Constitutional Constitutional ED: Denies chills or fever(s) Eyes Eyes: Denies blurry vision or change in vision ENT ENT ED: Denies rhinorrhea or sore throat Cardiovascular Cardiovascular: Denies chest pain or palpitations Respiratory/Chest Respiratory/Chest: Denies cough or dyspnea Gastrointestinal Gastrointestinal: Denies nausea or vomiting Genitourinary Genitourinary ED: Denies dysuria or hematuria Musculoskeletal Musculoskeletal: Denies back pain or neck pain Integumentary Denies abscess or rash Neurologic Neurologic: Denies headache(s) or weakness Allergic/Immunologic Allergic/Immunologic ED: Denies mouth swelling or urticaria EXAM Physical Exam Const Vital Signs: 07/06/24 18:03 Temperature 98.5 F Temperature Source Oral Pulse Rate 74 Respiratory Rate (more content not included)... Normal [facility] Extremity Lower without Cont raon 07-06-2024 Extremity Lower without Contra [facility] Imaging Services [address] [facility] [address] [place], [place] [address] Extremity Lower without Contra MR#: [id number] Acct: [id number] Name: OLGA LIDIA TELLO Rep #: [id number] : 1970 F 53 From: Jt Amin MD PCP: Dr. Lulu Luciano MD Status: REG ER Study: Extremity Lower without Contra Date of Exam: 0 07/06/24 Exam# [id number] Ordering Dr: Alton Lott DO PROCEDURE: EXTREMITY LOWER WITHOUT CONTRA 07/06/2024 REASON FOR EXAM: FALL TECHNIQUE: Axial CT images of the right knee obtained with intravenous contrast. Coronal and Sagittal reconstruction series were provided. One or more dose reduction techniques were used (e.g., Automated exposure control, adjustment of the mA and/or kV according to patient size, use of iterative reconstruction technique). FINDINGS: Bones: No evidence of fracture. Joints: Degenerative changes are present Soft Tissues: Unremarkable. CT/Extremity Lower without Contra IMPRESSION: No acute fracture or dislocation. Severe arthrosis. Reading Location: [facility] CC: Dr. Alton Lott DO; Dr. Lulu Luciano MD Magnesium Mill Operator: Signed Normal [facility] Shoulder min 2 Viewson 07-06 Shoulder min 2 Views [facility] Imaging Services [address] [place], [place] [address] Shoulder min 2 Views MR#: [id number] Acct: [id number] Name: OLGA LIDIA TELLO Rep #: [id number] : 1970 F 53 From: Jt Amin MD PCP: Dr. Lulu Luciano MD Status: REG ER Study: Shoulder min 2 Views Date of Exam: 07/06/24 Exam# [id number] Ordering Dr: Alton Lott DO PROCEDURE: SHOULDER MIN 2 VIEWS 07/06/2024 REASON FOR EXAM: INJURY/PAIN TECHNIQUE: 3 view(s) of the left shoulder FINDINGS: Bones: No acute fracture or dislocation. Joints: Normal alignment of the acromioclavicular and glenohumeral joints. Soft tissues: Soft tissues are unremarkable. Other: RAD/Shoulder min 2 Views IMPRESSION: NO ACUTE FRACTURE OR DISLOCATION. Reading Location: [facility] CC: Dr. Alton Lott DO; Dr. Lulu Luciano MD Magnesium Mill Operator: Signed Normal [facility] Venous Duplex Imag/Limited/U nion 07-06-2024 Venous Duplex Imag/Limited/Uni [facility] Imaging Services [address] [place], [place] [address] Venous Duplex Imag/Limited/Uni MR#: [id number] Acct: [id number] Name: OLGA LIDIA TELLO Rep #: [id number] : 1970 F 53 From: Jt Amin MD PCP: Dr. Lulu Luciano MD Status: REG ER Study: Venous Duplex Imag/Limited/Uni Date of Exam: 0 07/06/24 Exam# [id number] Ordering Dr: Alton Lott DO PROCEDURE: VENOUS DUPLEX IMAG/LIMITED/UNI 07/06/2024 REASON FOR EXAM: F 53 y/o Leg pain and swelling TECHNIQUE: Grayscale color flow and doppler analysis of the left lower extremity. FINDINGS: There is no intraluminal echogenicity to suggest the presence of a deep venous thrombosis. Appropriate respiratory variation, augmentation and venous compression is noted. US/Venous Duplex Imag/Limited/Uni IMPRESSION: No deep venous thrombosis identified in the extremity. Reading Location: [id number] CC: Dr. Alton Lott DO; Dr. Lulu Luciano MD Magnesium Mill Operator: Signed Normal [facility] XR ANKLE MINIMUM 3 VIEWS LEF Ton 07-01-2024 XR ANKLE MINIMUM 3 VIEWS LEFT ORIGINAL EXAMINATION: THREE XRAY VIEWS OF THE LEFT ANKLE07/01/2024 7:01 pm COMPARISON: None HISTORY: ORDERING SYSTEM PROVIDED HISTORY: Reason for Exam: fall Fall 2 days ago FINDINGS: Surgical change with fixation screws through the medial malleolus. Also noted fixation plate and transcortical screws through the distal fibula. There is no acute fracture or dislocation. Varying degrees of widespread degenerative change, likely most notably at the 1st carpometacarpal joint which is severe. Diffuse osseous demineralization. A few corticated ossicles inferior to the medial and lateral malleolus most consistent with remote injury. Lateral malleolar soft tissue swelling. Also noted soft tissue swelling over the midfoot. IMPRESSION: No acute osseous abnormality. Soft tissue swelling. I have personally reviewed the images of this examination and agree with the resident's findings and interpretation. Interpreted by: Aman Franks Preliminary Report By: Petey Stiles Electronically signed By Aman Franks Dictated Date: 07/01/2024 7:06:18 PM Prelim Date: 07/01/2024 7:10:30 PM Sign Date: 07/01/2024 8:38:29 PM Ordering Provider: LUX HODGE [facility] XR KNEE 1 OR 2 VIEWS LEFTon 07-01-2024 XR KNEE 1 OR 2 VIEWS LEFT ORIGINAL EXAMINATION: TWO XRAY VIEWS OF THE LEFT KNEE07/01/2024 7:02 pm COMPARISON: None HISTORY: Reason for exam: Fall 2 days ago, pain FINDINGS: Cortical irregularities are appreciated along the anterior and posterior aspect of the distal femoral metaphysis. Suspect a small lipohemarthrosis. Tricompartmental degenerative changes, notably moderate to severe of the medial tibiofemoral compartment. Diffuse osseous demineralization. IMPRESSION: Findings concerning for impacted distal femoral fracture with small lipohemarthrosis. Follow-up with CT of the knee is suggested for further evaluation. REPORT CORRECTION I have personally reviewed the images of this examination and edited the preliminary report. Interpreted by: Aman Franks Preliminary Report By: Petey Stiles Electronically signed By Aman Franks Dictated Date: 07/01/2024 7:10:38 PM Prelim Date: 07/01/2024 7:12:39 PM Sign Date: 07/01/2024 8:42:45 PM Ordering Provider: LUX HODGE [facility] Bedside Glucoseon 05-26-2024 FINGERSTICK GLU 109 mg/dL High 74-106 [facility] Comment on above: Result Comment: REYNALDO HEATH OF PATIENT CARE PER NURSING PROTOCOL Performed By: #### L 501.080 ####[facility] [address] [place], [address] Glucose measurement at [facility] deOrdered By: Osvaldo Freeman on 05-26-2024 Bedside Glucose ([facility] Panel) 109 mg/dL High 74-106 [facility] Comment on above: MANAGEMENT OF PATIEN T CARE PER NURSING PROTOCOL MR/POSTOP.ANEon 05-26-2024 MR/POSTOP.[facility] Medical Records Department [address] [place] [address] Anesthesia Postop Eval I 05/26/241314 MR#: [id number] Acct: [id number] Name: OLGA LIDIA TELLO Rep #: [id number] : 1970 53 From: Marina Elias PCP: Dr. Lulu Luciano MD Status:REG [facility] [place] Race: C Location: [place] [address] Anesthesia: Postop Eval I Current Vital Signs Temperature: 97.2 F Pulse Rate: 72 Blood Pressure: 139/93 Respiratory Rate: 16 Pulse Ox: 98 Assessment Airway patent: Yes Spontaneous unlabored respirations: Yes nausea: No Vomiting: No Anesthesia Complication: No Fluid Hydration Crystalloid volume administer (ml): 1,300 Total IV fluid infused: 1,300 Progress Note Anesthesia document: Postop Eval 1 completed: Yes 05/26/24 1319 Date Marina Ashfordyoanyamilet Signature: Date CC: Signed Normal [facility] [id number] 05-26-2024 MR/POSTOPAN2 [facility] Medical Records Department [address] [place] [address] Anesthesia Postop Eval II 05/26/24 164 MR#: [id number] Acct: [id number] Name: OLGA LIDIA TELLO Rep #: [id number] : 1970 53 From: Marina Elias PCP: Dr. Lulu Luciano MD Status:[facility] Y Race: C [place] [facility] [place]esthesia Postop Eval I Sum Postop Eval Completion status Anesthesia document: Postop Eval 1 completed: Yes Anesthesia Postop Eval I Summary Anesthesia Postop Eval I Summary: Anesthesia Postop Eval I: Assessment Summary Airway patent Yes 05/26/24 13:19 [email or web address] Spontaneous unlabored Yes 05/26/24 13:19 [email or web address].CSIR respirations Mental status nausea No 05/26/24 13:19 [email or web address].CSIR Vomiting No 05/26/24 13:19 [email or web address] Anesthesia Postop Eval I: Fluid Summary Crystalloid volume administer 1,300 05/26/24 13:19 [email or web address].CSIR (ml) Colloids volume administered ( ml) Blood Product volume administered (ml) Total IV fluid infused 1,300 05/26/24 13:19 [email or web address] Anesthesia Postop Eval I: Summary Notes Anesthesia Complication No 05/26/24 13:19 [email or web address].CSIR Anesthesia Complication Comment: Post-operative progress note Anesthesia: Postop Eval II Evaluation Mental status: Awake Pain Level: 2 nausea: No Vomiting: No 05/26/24 164 Date Marina Corbin Signature: Date CC: Signed Normal [facility] Operative Reporton 5 Operative Report [facility] Medical Records Department [address] [place] [address] Operative Report 05/26/24 1328 MR#: [id number] Acct: [id number] Name: OLGA LIDIA TELLO Rep #: [id number] : 1970 53 From: Osvaldo Freeman DO PCP: Dr. Lulu Luciano MD Status:[place] [facility] [place]: [place] [address] Operative Report (Standard) Operative Information Date of Procedure: 05/26/24 Pre-Operative Diagnosis: Right intra-articular distal radius fracture Post-Operative Diagnosis: Right intra-articular distal radius fracture Surgery/Procedure Performed: Right distal radius open reduction internal fixation, greater than 3 parts grocery department manager: Yes Cath Lab Nurse: Marcy Floyd Tasks completed by assisted living manager: Opening closing, Implanting device and Retracting Additional sales support assistant?: No Type of Anesthesia: General RN Documented Start/Stop Times: Operation Date: 05/26/24 12:00 Case Time Into Pre-Op 05/26/24 10:30 Anesthesia Start 05/26/24 11:22 Into Room 05/26/24 11:22 Procedure Start 05/26/24 11:46 Out of Pre-Op 05/26/24 11:52 Procedure End 05/26/24 13:04 Anesthesia End 05/26/24 13:12 Out of Room 05/26/24 13:12 Into Recovery 05/26/24 13:15 Procedure Start Time: 11:46 Procedure Stop Time: 13:04 Select all DRAINS/GRAFTS/IMPLANTS that apply: Implanted device Implanted device details: Arthrex narrow volar locking plate, 3-hole right Estimated Blood Loss: 25 cc Specimen collected: No Description of surgery: Patient was notified today of surgery by name, medical record number, and date of . The operative extremity was marked. All questions were answered to the patient satisfaction. Patient was then brought to the operative suite and positioned supine on a standard operating table. Hand table was attached patient's right side general anesthesia was induced and LMA placed. Well-padded pneumatic tourniquet was applied to the right upper arm. Right upper extremity was prepped and draped in normal, sterile orthopedic fashion. We performed a timeout confirming the side, site, operation be performed. No concerns were voiced and we elected to proceed with surgery. Right upper extremity was then exsanguinated Esmarch bandage. Tourniquet was inflated to 250 mmHg for approximately 45 minutes. Esmarch was removed. Standard FCR approach was then performed to the distal radius. Full-thickness skin flaps were developed down to the FCR. FCR was retracted ulnarly and the floor the sheath was opened. Pronator quadratus was intact and L-shaped tenotomy was performed. Comminuted radial styloid and radial column fracture was noted. Fracture hematoma was debrided. Provisional reduction was performed with combination of pointed clamps and ulnar deviation. Reasonable reduction was achieved. I elected to secure plate to bone and then reduce the fracture to the plate. Cortical screw was placed in the oblong hole of the plate in appropriate position. I then used the pointed clamp and a lobster claw clamp to reduce the comminuted radial column. 2 locking compression screws were placed in the radial styloid portion of the plate achieving reduction and fixation of the radial styloid. The proximal portion of the fracture was still unstable. The remainder of the distal segment was filled with locking screws. Cortical screws were filled in the shaft in sterile fashion. The wrist was stable following final fixation. I elected to place 2 percutaneous K wires for additional fixation of the radial column. Wound was copiously irrigated with normal saline. K wires were bent and cut. Tourniquet was deflated. Hemostasis was excellent. Dermis was then reapproximated with buried 3-0 Vicryl suture and skin reapproximated with 4-0 subcuticular 4-0 Monocryl. Dermabond was applied. Field block of 10 cc quarter percent bupivacaine with epinephrine was administered. Bulky sterile compression dressing was applied. Well-padded fiberglass short arm splint was applied. She was awakened from anesthesia. She tolerated procedure well without apparent complication. She was extubated in the operative suite and transferred to her gurney and subsequently to PACU in stable condition. Need for skilled sales support assistant: Marcy Floyd PA-C was critical to the outcome of the case. During the course of the procedure the physician sales support assistant played a vital role. Her intimate knowledge of my s teps in the procedure aided in safe and expedient completion of the procedure. The PA played a vital role in positioning particularly in obtaining the appropriate positioning. The PA was also vital in the retraction of soft tissues during the exposure and protecting vital structures. The PA was also vital and obtaining fracture reduction and assisting with hardware placement. She also played a vital role in closure and splint application with my direct supervision. Postoperative plan: Nonweig (more content not included)... Normal [facility] Wrist 2 Viewson 05-26-2024 Wrist 2 Views [facility] [address] [place] [address] Wrist 2 Views MR#: [id number] Acct: [id number] Name: OLGA LIDIA TELLO Rep #: [id number] : 1970 F 53 From: Jose english MD PCP: Dr. Lulu Luciano MD Status: [facility] Study: Wrist 2 Views Date of Exam: 05/26/24 Exam# [id number] Ordering Dr: Osvaldo Freeman DO PROCEDURE: Intraoperative fluoroscopic services provided for open reduction and internal fixation of the distal radial fracture. REASON FOR EXAM: ORIF of the distal radial fracture. TECHNIQUE: 2 view(s) of the right wrist were obtained. COMPARISON: None. FINDINGS: RIGHT WRIST: Intraoperative fluoroscopic imaging provided for open reduction and internal fixation of the distal radial fracture utilizing screw and plate fixation device. There is good alignment. RAD/Wrist 2 Views IMPRESSION: Fluoroscopic services provided for open reduction and internal fixation of the distal radial fracture. There is good alignment. Reading Location: [id number] CC: Dr. Lulu Luciano MD; Dr. Osvaldo Freeman DO Magnesium Mill Operator: Signed Normal [facility] Electrocardiogram reportOrde red By: Petey Ordonez on 05-20-[address] [facility] [address] [place] [address] 12 Lead EKG 05/19/24 0949 MR#: [id number] Acct: [id number] Name: OLGA LIDIA TELLO Rep #:[id number] : 1970 53 From: Petey olivas MD Attending Dr: Dr. Osvaldo Freeman DO Status: PRE SDC Ordering Dr: Marcy Floyd Date: Location: SDC Sex: F C Admitted: Test Reason : PRE OP Blood Pressure : */* mmHG Vent. Rate : 76 BPM Atrial Rate : 76 BPM P-R Int : 146 ms QRS Dur : 72 ms QT Int : 392 ms P-R-T Axes : 15 61 4 degrees QTcB Int : 441 ms Normal sinus rhythm with sinus arrhythmia Low voltage QRS Borderline Confirmed by Petey Ordonez ([id number]), proposal editor MAINE YUEN ([id number]) on 55:58:54 AM Referred By: Osvaldo Freeman Confirmed By: Petey Ordonez 05/20/24 0558 Date _ Petey Ordonez MD CC: Dr. Lulu Luciano MD; Dr. Osvaldo Freeman DO; HETAL Vazquez ~ Signed [facility] Work Phone: 12 Lead EKGon 05-19-2024 12 Lead EKG [facility] Services [address] [place] [address] 12 Lead EKG 05/19/24 0949 MR#: [id number] Acct: [id number] Name: OLGA LIDIA TELLO Rep #: [id number] : 1970 53 From: Petey Ordonez MD Attending Dr: Dr. Osvaldo Freeman DO Status: PRE SDC Ordering Dr: Marcy Floyd Date: 05/19/24 Location: SD Sex: F C Admitted: Test Reason : PRE OP Blood Pressure : */* mmHG Vent. Rate : 76 BPM Atrial Rate : 76 BPM P-R Int : 146 ms QRS Dur : 72 ms QT Int : 392 ms P-R-T Axes : 15 61 4 degrees QTcB Int : 441 ms Normal sinus rhythm with sinus arrhythmia Low voltage QRS Borderline Confirmed by Petey Ordonez ([id number]), proposal editor MAINE YUEN ([id number]) on 05/20/2024 5:58:54 AM Referred By: Osvaldo Freeman Confirmed By: Petey Ordonez 05/20/24 0558 Date Petey Ordonez MD CC: Dr. Lulu Luciano MD; Dr. Osvaldo Freeman DO; HETAL Vazquez Signed Normal [facility] Absolute neutrophil countOrd ered By: Osvaldo Freeman on 05-19-2024 Neutrophils (Bld) [#/Vol] 4.2 10*3/uL 2.0-7.7 [facility] Automated blood erythrocyte countOrdered By: Osvaldo Freeman on 05-19-2024 RBC (Bld) [#/Vol] 4.35 10*6/uL Normal 4.2-5.4 [facility] Comment on above: Performed By: #### L 100.0100, L500.2500, L501.9985 #### [facility] [address] [facility] [place], [place], [id number] Automated blood hematocrit ( percentage)Ordered By: Osvaldo Freeman on 05-19-2024 Hematocrit (Bld) [Volume fraction] 42.0 % Normal 37-47 [facility] Comment on above: Performed By: #### L 100.0100, L500.2500, L501.9985 #### [facility] [address] [place], [address] Automated lymphocyte count a s percentage of total leukocytesOrdered By: Osvaldo Freeman on 05-19-2024 Lymphocytes/100 WBC (Bld) 34.5 % Normal 19-41 [facility] Comment on above: Performed By: #### L 100.0100, L500.2500, L501.9985 #### [facility] [address] [place], [address] BUN/creatinine ratioOrdered By: Osvaldo Freeman on 05-19-2024 Urea nitrogen/Creatinine [Mass ratio] 13.1 mg/mg - [facility] Basic Metabolic Profile (BMP )on 05-19-2024 BUN/CRE 13.1 RATIO Normal 01-09 [facility] Comment on above: Performed By: #### L 100.0100, L500.2500, L501.9985 ####[facility] [address] [place], [place], [phone](361) GFR/1.73 sq M.predicted among non-blacks MDRD (S/P/Bld) [Vol rate/Area] 84 mL/min/{1.73_m2} Normal >60 [facility] Comment on above: Result Comment: mL/m in/1.73m2 CKD-EPI Creatinine Equation (2020) Performed By: #### L 100.0100, L500.2500, L501.9985 ####[facility] [address] [place], [place], [id number](267) Basophil percentageOrdered B y: Osvaldo Freeman on 05-19-2024 Basophils/100 WBC (Bld) 1.0 % Normal 0-1 [facility] Comment on above: Performed By: #### L 100.0100, L500.2500, L501.9985 #### [facility] [address] [place], [address] CBC W/Diff, Automatedon 04-24 Absolute Lymph 2.84 X10 3/uL Normal 0.83-4.51 [facility] Comment on above: Performed By: #### L 100.0100, L500.2500, L501.9985 #### [facility] [address] [place], [address] Absolute Neut 4.2 X10 3/uL Normal 2.0-7.7 [facility] Comment on above: Performed By: #### L 100.0100, L500.2500, L501.9985 #### [facility] [address] [place], [address] IG% 0.400 Normal 0.0-0.9 [facility] Comment on above: Result Comment: IG% - Immature Granulocytes (promyelocytes, myelocytes and metamyelocytes) > 1% indicates that a LEFT SHIFT is Present. Performed By: #### L 100.0100, L500.2500, L501.9985 #### [facility] [address] [place], [address] Nucleated RBC (Bld) [#/Vol] 0 10*3/uL Normal 0-5 [facility] Comment on above: Performed By: #### L 100.0100, L500.2500, L501.9985 #### [facility] [address] [place], [address] RDW SD 42.8 fl Normal 35.1-43.9 [facility] Comment on above: Performed By: #### L 100.0100, L500.2500, L501.9985 #### [facility] [address] [place], [address] Carbon dioxide measurementOr dered By: Osvaldo Freeman on 05-19-2024 CO2 [Moles/Vol] 27.6 mmol/L Normal 22.0-29.0 [facility] Comment on above: Performed By: #### L 100.0100, L500.2500, L501.9985 ####[facility] [address] [place], [address] Chloride measurementOrdered By: Osvaldo Freeman on 05-19-2024 Chloride [Moles/Vol] 104 mmol/L Normal 96-108 [facility] Comment on above: Performed By: #### L 100.0100, L500.2500, L501.9985 ####[facility] [address] [place], [address] Eosinophil percentageOrdered By: Osvaldo Freeman on 05-19-2024 Eosinophils/100 WBC (Bld) 4.4 % Normal 0-5 [facility] Comment on above: Performed By: #### L 100.0100, L500.2500, L501.9985 #### [facility] [address] [place], [address] Erythrocyte distribution wid th ratioOrdered By: Osvaldo Freeman on 05-19-2024 Erythrocyte distribution width (RBC) [Ratio] 12.0 % Normal 11.6-14.6 [facility] Comment on above: Performed By: #### L 100.0100, L500.2500, L501.9985 #### [facility] [address] [place], [address] Erythrocyte distribution wid th standard deviationOrdered By: Osvaldo Freeman on 05-19-2024 Erythrocyte distribution width (RBC) [Entitic vol] 42.8 fL 35.1-43.9 [facility] GFR/1.73 sq M.predicted dinesh g non-blacks MDRD (S/P/Bld) [Vol rate/Area]Ordered By: Osvaldo Freeman on 05-19-2024 Estimated GFR (MDRD) Non-Af Amer 84 >60 [facility] Comment on above: mL/min/1.73m2 CKD-EP I Creatinine Equation (2020) Hemoglobin A1c percentageOrd ered By: Osvaldo Freeman on 05-19-2024 HbA1c (Bld) [Mass fraction] 5.9 % Normal <=5.6 [facility] Comment on above: Performed By: #### L 100.0100, L500.2500, L501.9985 ####[facility] [address] [place], [address] Hemoglobin measurementOrdere d By: Osvaldo Freeman on 05-19-2024 Hemoglobin (Bld) [Mass/Vol] 13.6 g/dL Normal 12.0-15.0 [facility] Comment on above: Performed By: #### L 100.0100, L500.2500, L501.9985 #### [facility] [address] [facility] [place], [address] Immature granulocytes/100 WB C Auto (Bld)Ordered By: Osvaldo Freeman on 05-19-2024 Immature granulocytes/100 WBC (Bld) 0.400 % 0.0-0.9 [facility] Comment on above: IG% - Immature Granu locytes (promyelocytes, myelocytes and metamyelocytes) > 1% indicates that a LEFT SHIFT is Present. Lymphocytes Auto (Unsp spec) [#/Vol]Ordered By: Osvaldo Freeman on 05-19-2024 Lymphocytes (Bld) [#/Vol] 2.84 10*3/uL 0.83-4.51 [facility] MCV (mean corpuscular volume ) determinationOrdered By: Osvaldo Freeman on 05-19-2024 MCV (RBC) [Entitic vol] 96.6 fL Normal 81-99 [facility] Comment on above: Performed By: #### L 100.0100, L500.2500, L501.9985 #### [facility] [address] [place], [address] MR/PAT.ANEon 05-19-2024 MR/PAT.ANE [facility] Medical Records Department [address] [place] [address] PAT - Anesthesia 05/19/24 1642 MR#: [id number] Acct: [id number] Name: OLGA LIDIA TELLO Rep #: [id number] : 1970 53 From: Ricky Chino MD PCP: Dr. 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 When Was Last Pacemaker Check QUESTION #4 FULL TEXT: You/Your Family Experience fever (hyperthermia) with Anesthesia Last Oral Intake Last Oral intake: Last Oral Intake NPO since Meds taken in AM with sips of water? 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 - mechanical design engineer products: PONV - mechanical design engineer products Female Yes 05/19/24 09:01 HX of Motion Sickness Yes 05/19/24 09:01 HX of N/V After Surgery Yes 05/19/24 09:01 Non-Smoker Yes 05/19/24 09:01 Duration of Surgery greater Yes 05/19/24 09:01 than 60 minutes Number of Risk Factors 5 05/19/24 09:01 PONV Score Severe Risk 05/19/24 09:01 Height Weight Height Weight: Anesthesia: Height Weight Height 5 ft 10 in 04/15/24 08:11 Respiratory Assessment Respiratory Assessment - mechanical design engineer products: Respiratory Tract Infection Hx - mechanical design engineer products Hx Respiratory Tract Infection No 05/19/24 09:01 STOP Sleep Apnea STOP Sleep Apnea - mechanical design engineer products: STOP Sleep Apnea - mechanical design engineer products Hx Hypertension No 05/19/24 09:01 Hx Sleep Apnea Yes 05/19/24 09:01 CPAP Yes: NONCOMPLIANT 05/19/24 09:01 BIPAP No 05/19/24 09:01 Do you snore loudly (louder than talking or can be heard Do you often feel tired/ fatigued/ sleepy during daytime? Has anyone observed you stop breathing during sleep? STOP Results Positive 05/19/24 09:01 QUESTION #5 FULL TEXT : Do you snore loudly (louder than talking or can be heard through closed doors)? 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 Specify any problems Hx of Preganancy in last 3 N/A 05/19/24 09:01 Months Nurse Filling Out Transfusion NBUCHER 05/19/24 09:01 Questions: Date: 05/19/24 05/19/24 09:01 Time: 09:03 05/19/24 09:01 Patient unable to answer at this time (ie. confused, unrespo /Reproduction History /Reproductive History - mechanical design engineer products: /Reproductive Hx- mechanical design engineer products Hx Now Gestational Age (in weeks): EDC: Hx Hx Para Hx Section SAB No 05/19/24 09:01 Active Medications Active Medications: Current Medications Generic Name Dose Route Start Last Admin Trade Name Freq PRN Reason Stop Dose Admin Cefazolin Sodium 2 gm/ N/A 20 mls @ 400 mls/hr 05/20/24 10:25 IV 05/20/24 10:27 PREOP ONE [facility] Medical History (Updated 05/19/24 @ 09:05 by Radha Mac) Distal radius fracture, right Wears glasses Depression Anxiety Diabetes Bladder disease Arthritis Low iron High cholesterol Easy bruising Back pain TIA (transient ischemic attack) Vertigo Restless legs Dietary restriction History of IBS Gastric reflux Shortness of breath on exertion CPAP (continuous positive airway pressure) dependence Non-smoker Leg cramps History of pain when walking History of stress test Contusion of left shoulder Left shoulder strain Callus of toe Foot deformity Neuropathy of both feet Home Medications ???Medication ???Instructions ???Recorded ???Last Taken ???Type duloxetine 60 mg capsule,de (more content not included)... Normal [facility] MR/PAT.[facility] Medical Records Department [address] [place] [address] PAT - Anesthesia 05/19/24 0958 MR#: [id number] Acct: [id number] Name: OLGA LIDIA TELLO Rep #: [id number] : 1970 53 From: Ricky Chino MD PCP: Dr. 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 When Was Last Pacemaker Check QUESTION #4 FULL TEXT: You/Your Family Experience fever (hyperthermia) with Anesthesia Last Oral Intake Last Oral intake: Last Oral Intake NPO since Meds taken in AM with sips of water? 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 - mechanical design engineer products: PONV - mechanical design engineer products Female Yes 05/19/24 09:01 HX of Motion Sickness Yes 05/19/24 09:01 HX of N/V After Surgery Yes 05/19/24 09:01 Non-Smoker Yes 05/19/24 09:01 Duration of Surgery greater Yes 05/19/24 09:01 than 60 minutes Number of Risk Factors 5 05/19/24 09:01 PONV Score Severe Risk 05/19/24 09:01 Height Weight Height Weight: Anesthesia: Height Weight Height 5 ft 10 in 04/15/24 08:11 Respiratory Assessment Respiratory Assessment - mechanical design engineer products: Respiratory Tract Infection Hx - mechanical design engineer products Hx Respiratory Tract Infection No 05/19/24 09:01 STOP Sleep Apnea STOP Sleep Apnea - mechanical design engineer products: STOP Sleep Apnea - mechanical design engineer products Hx Hypertension No 05/19/24 09:01 Hx Sleep Apnea Yes 05/19/24 09:01 CPAP Yes: NONCOMPLIANT 05/19/24 09:01 BIPAP No 05/19/24 09:01 Do you snore loudly (louder than talking or can be heard Do you often feel tired/ fatigued/ sleepy during daytime? Has anyone observed you stop breathing during sleep? STOP Results Positive 05/19/24 09:01 QUESTION #5 FULL TEXT : Do you snore loudly (louder than talking or can be heard through closed doors)? 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 Specify any problems Hx of Preganancy in last 3 N/A 05/19/24 09:01 Months Nurse Filling Out Transfusion NBUCHER 05/19/24 09:01 Questions: Date: 05/19/24 05/19/24 09:01 Time: 09:03 05/19/24 09:01 Patient unable to answer at this time (ie. confused, unrespo /Reproduction History /Reproductive History - mechanical design engineer products: /Reproductive Hx- mechanical design engineer products Hx Now Gestational Age (in weeks): EDC: Hx Hx Para Hx Section SAB No 05/19/24 09:01 Active Medications Active Medications: Current Medications Generic Name Dose Route Start Last Admin Trade Name Freq PRN Reason Stop Dose Admin Cefazolin Sodium 2 gm/ N/A 20 mls @ 400 mls/hr 05/20/24 10:25 IV 05/20/24 10:27 PREOP ONE [facility] Medical History (Updated 05/19/24 @ 09:05 by Radha Mac) Distal radius fracture, right Wears glasses Depression Anxiety Diabetes Bladder disease Arthritis Low iron High cholesterol Easy bruising Back pain TIA (transient ischemic attack) Vertigo Restless legs Dietary restriction History of IBS Gastric reflux Shortness of breath on exertion CPAP (continuous positive airway pressure) dependence Non-smoker Leg cramps History of pain when walking History of stress test Contusion of left shoulder Left shoulder strain Callus of toe Foot deformity Neuropathy of both feet Home Medications ???Medication ???Instructions ???Recorded ???Last Taken ???Type duloxetine 60 mg capsule,de (more content not included)... Normal [facility] Mean corpuscular hemoglobin (MCH) determinationOrdered By: Osvaldo Freeman on 05-19-2024 MCH (RBC) [Entitic mass] 31.3 pg Normal 27.0-32.0 [facility] Comment on above: Performed By: #### L 100.0100, L500.2500, L501.9985 #### [facility] [address] [place], [address] Mean corpuscular hemoglobin concentration (MCHC) determinationOrdered By: Osvaldo Freeman on 05-19-2024 MCHC (RBC) [Mass/Vol] 32.4 g/dL Normal 32-36 [facility] Comment on above: Performed By: #### L 100.0100, L500.2500, L501.9985 #### [facility] [address] [place], [address] Mean platelet volume determi nationOrdered By: Osvaldo Freeman on 05-19-2024 Platelet mean volume (Bld) [Entitic vol] 9.2 fL Normal 6.2-12.0 [facility] Comment on above: Performed By: #### L 100.0100, L500.2500, L501.9985 #### [facility] [address] [place], [address] Monocyte percentageOrdered B y: Osvaldo Freeman on 05-19-2024 Monocytes/100 WBC (Bld) 8.5 % Normal 0-10 [facility] Comment on above: Performed By: #### L 100.0100, L500.2500, L501.9985 #### [facility] [address] [place], [address] Neutrophil percentageOrdered By: Osvaldo Freeman on 05-19-2024 Neutrophils/100 WBC (Bld) 51.2 % Normal 47-70 [facility] Comment on above: Performed By: #### L 100.0100, L500.2500, L501.9985 #### [facility] [address] [place], [address] Nucleated red blood cell per centageOrdered By: Osvaldo Freeman on 05-19-2024 Nucleated RBC/100 WBC (Bld) [Ratio] 0 % 0-5 [facility] Platelet countOrdered By: Monse Freeman on 05-19-2024 Platelets (Bld) [#/Vol] 280 10*3/uL Normal 150-450 [facility] Comment on above: Performed By: #### L 100.0100, L500.2500, L501.9985 #### [facility] [address] [place], [address] Serum glucose measurement (m ass/volume)Ordered By: Osvaldo Freeman on 05-19-2024 Glucose [Mass/Vol] 122 mg/dL High 70-99 [facility] Comment on above: Performed By: #### L 100.0100, L500.2500, L501.9985 ####[facility] [address] [place], [address] Serum or plasma anion gap de termination (moles/volume)Ordered By: Osvaldo Freeman on 05-19-2024 Anion gap [Moles/Vol] 9 mmol/L Normal 5-15 [facility] Comment on above: Performed By: #### L 100.0100, L500.2500, L501.9985 ####[facility] [address] [place], [address] Serum or plasma calcium an urement (mass/volume)Ordered By: Osvaldo Freeman on 05-19-2024 Calcium [Mass/Vol] 9.5 mg/dL Normal 7.6-11.0 [facility] Comment on above: Performed By: #### L 100.0100, L500.2500, L501.9985 ####[facility] [address] [place], [address] Serum or plasma creatinine m easurement (moles/volume)Ordered By: Osvaldo Freeman on 05-19-2024 Creatinine [Mass/Vol] 0.8 mg/dL Normal 0.6-1.0 [facility] Comment on above: Performed By: #### L 100.0100, L500.2500, L501.9985 ####[facility] [address] [place], [address] Serum or plasma potassium me asurementOrdered By: Osvaldo Freeman on 05-19-2024 Potassium [Moles/Vol] 4.1 mmol/L Normal 3.3-5.1 [facility] Comment on above: Hemolysis present, R esults could be affected. Result Comment: Hemo lysis present, Results??could be affected. ?? Performed By: #### L 100.0100, L500.2500, L501.9985 ####[facility] [address] [place], [address] Serum or plasma sodium measu rement (moles/volume)Ordered By: Osvaldo Freeman on 05-19-2024 Sodium [Moles/Vol] 140 mmol/L Normal 133-145 [facility] Comment on above: Performed By: #### L 100.0100, L500.2500, L501.9985 ####[facility] [address] [place], [address] Serum or plasma urea nitroge n measurement (mass/volume)Ordered By: Osvaldo Freeman on 05-19-2024 Urea nitrogen [Mass/Vol] 11 mg/dL Normal 4-19 [facility] Comment on above: Performed By: #### L 100.0100, L500.2500, L501.9985 ####[facility] [address] [place], [address] White blood cell (WBC) count Ordered By: Osvaldo Freeman on 05-19-2024 WBC (Bld) [#/Vol] 8.2 10*3/uL Normal 4.4-11.0 [facility] Comment on above: Performed By: #### L 100.0100, L500.2500, L501.9985 #### [facility] [address] [place], [address] XR WRIST MINIMUM 3 VIEWS RIG HTon 05-15-2024 XR WRIST MINIMUM 3 VIEWS RIGHT ORIGINAL EXAMINATION: THREE XRAY VIEWS OF THE RIGHT WRIST 05/15/2024 12:53 am COMPARISON: Right wrist x-ray on 05/14/2024 HISTORY: ORDERING SYSTEM PROVIDED HISTORY: Reason for Exam: pain FINDINGS: Right wrist is now in a cast. Comminuted intra-articular fracture of distal right radius is again seen. The lateral and anterior angulation and displacement is decreased compared with prior exam. Ulnar styloid process fracture is laterally displaced also. IMPRESSION: Improved alignment of distal right radius fracture. Interpreted by: Paul Verduzco MD Preliminary Report By: Paul Verduzco MD Electronically signed By Paul Verduzco MD Dictated Date: 05/15/2024 1:01:27 AM Prelim Date: 05/15/2024 1:03:23 AM Sign Date: 05/15/2024 1:03:23 AM Ordering Provider: SMILEY Zavaleta [facility] XR WRIST MINIMUM 3 VIEWS RIGHT ORIGINAL EXAMINATION: THREE XRAY VIEWS OF THE RIGHT WRIST 05/14/2024 11:07 pm COMPARISON: None. HISTORY: ORDERING SYSTEM PROVIDED HISTORY: Reason for Exam: Right wrist pain and deformity status post fall. FINDINGS: Acute, comminuted, displaced impacted fracture of distal radius with intra-articular involvement. Distal fracture fragments are displaced radially by 1.6 cm. There is also ventral angulation. Mildly displaced fracture of ulna styloid. Adjacent soft tissue swelling. No radiopaque foreign body. IMPRESSION: Acute comminuted, impacted, intra-articular fracture of distal radius with ventral and radial angulation. Mildly displaced fracture of ulna styloid. I have personally reviewed the images of this examination and agree with the resident's findings and interpretation. Interpreted by: Mayco Irwin DO Preliminary Report By: Katherine Jefferson Electronically signed By Mayco Irwin DO Dictated Date: 05/14/2024 11:55:05 PM Prelim Date: 05/14/2024 11:58:08 PM Sign Date: 05/15/2024 12:15:52 AM Ordering Provider: SMILEY Zavaleta [facility] .Auto Diffon 05-14-2024 Basophil, Absolute 0.1 10 3/mcL Normal 0.0-0.2 [facility] Comment on above: Performed By: #### U DRUG #### [place] [address] #### UOXYS, UFENTS #### [address] [address] Basophils/100 WBC (Bld) 0.7 % Normal 0.0-2.5 [facility] Comment on above: Performed By: #### U DRUG #### [place] [address] #### UOXYS, UFENTS #### [address] [address] Eosinophil, Absolute 0.3 10 3/mcL Normal 0.0-0.7 [facility] Comment on above: Performed By: #### U DRUG #### [place] [address] #### UOXYS, UFENTS #### [address] [address] Eosinophils/100 WBC (Bld) 3.4 % Normal 0.0-7.0 [facility] Comment on above: Performed By: #### U DRUG #### [place] [address] #### UOXYS, UFENTS #### [address] [address] Lymphocyte, Absolute 2.5 10 3/mcL Normal 0.9-4.3 [facility] Comment on above: Performed By: #### U DRUG #### [place] [address] #### UOXYS, UFENTS #### [address] [address] Lymphocytes/100 WBC (Bld) 29.5 % Normal 20.0-40.0 [facility] Comment on above: Performed By: #### U DRUG #### [address] [address] #### UOXYS, UFENTS #### [address] [address] Monocyte, Absolute 0.6 10 3/mcL Normal 0.1-1.4 [facility] Comment on above: Performed By: #### U DRUG #### [address] [address] #### UOXYS, UFENTS #### [address] [address] Monocytes/100 WBC (Bld) 6.8 % Normal 2.0-13.0 [facility] Comment on above: Performed By: #### U DRUG #### [address] [address] #### UOXYS, UFENTS #### [address] [address] Neutrophils/100 WBC (Bld) 59.6 % Normal 50.0-75.0 [facility] Comment on above: Performed By: #### U DRUG #### [address] [address] #### UOXYS, UFENTS #### [address] [address] .GFRon 05-14-2024 Estimated Glomerular Filtration Rate 55 ml/min/1.73sqm Normal [facility] Comment on above: Result Comment: Stages of Chronic Kidney Disease (CKD) Stage Description eGFR(ml/min/1.73 sq.m.) CKD 1 Normal kidney function or >=90 normal kindney function with possible kidney damage (ex. Proteinuria) CKD 2 Kidney damage with mild loss 60-89 of kidney function CKD 3a Mild to moderate loss of kidney 45-59 function CKD 3b Moderate to severe loss of 30-44 of kindey function CKD 4 Severe loss of kidney function 15-29 CKD 5 Kidney failure <15 Note: (go live 2024) the eGFR calculation was updated to the 2020 CKD-EPI creatinine equation without a race factor to calculate the eGFR results. Performed By: #### U DRUG #### [place] [id number] #### UOXYS, UFENTS #### [address] [address] .MDWon 05-14-2024 Monocyte Distribution Width 19.05 Normal 0.00-20.00 [facility] Comment on above: Result Comment: For ED adult patients suspected of sepsis, MDW<=20.0 does not rule out sepsis or risk of sepsis Performed By: #### U DRUG #### [place] [address] #### UOXYS, UFENTS #### [place] [address] .NEUABSon 05-14-2024 Neutrophil, Absolute 5.1 10 3/mcL Normal 2.3-8.1 [facility] Comment on above: Performed By: #### U DRUG #### [place] [address] #### UOXYS, UFENTS #### [place] [address] ABO/Rh (Gel)on 05-14-2024 ABO/Rh Interp Positive Invalid Interpretation Code [facility] Comment on above: Performed By: #### U DRUG #### [place] [address] #### UOXYS, UFENTS #### [place] [id number] ABS (Gel)on 05-14-2024 ABSC Interp (Gel) Negative Normal [facility] Comment on above: Performed By: #### U DRUG #### [place] [address] #### UOXYS, UFENTS #### [place] [address] Kenji 05-14-2024 Ethanol Level <3 Normal [facility] Comment on above: Performed By: #### U DRUG #### [address] [address] #### UOXYS, UFENTS #### [address] [address] APTTon 05-14-2024 aPTT Coag (Bld) [Time] 32.9 s Normal 25.0-35.0 [facility] Comment on above: Result Comment: For Heparin anticoagulation therapy, the recommended therapeutic range is: 45.4-75.9 seconds. Patients on heparin therapy may have an extreme result. Performed By: #### U DRUG #### [place] [address] #### UOXYS, UFENTS #### [place] [address] BMPon 05-14-2024 BUN/Creatinine Ratio 15 ratio Normal 7-27 [facility] Comment on above: Performed By: #### U DRUG #### [place] [address] #### UOXYS, UFENTS #### [address] [address] Calcium [Mass/Vol] 9.6 mg/dL Normal 8.4-10.2 [facility] Comment on above: Performed By: #### U DRUG #### [place] [address] #### UOXYS, UFENTS #### [address] [address] Chloride [Moles/Vol] 101 mmol/L Normal 98-107 [facility] Comment on above: Performed By: #### U DRUG #### [place] [address] #### UOXYS, UFENTS #### [address] [address] CO2 [Moles/Vol] 26 mmol/L Normal 22-29 [facility] Comment on above: Performed By: #### U DRUG #### [place] [id number] #### UOXYS, UFENTS #### [address] [address] Creatinine [Mass/Vol] 1.18 mg/dL High 0.55-1.02 [facility] Comment on above: Result Comment: Test ing performed on Siemens Dimension EXL analyzer using a modified kinetic Marian technique. Performed By: #### U DRUG #### [place] [address] #### UOXYS, UFENTS #### [address] [address] Electrolyte Balance 9.0 mEq/L Normal 4.0-15.[address] [facility] Comment on above: Performed By: #### U DRUG #### [place] [address] #### UOXYS, UFENTS #### [address] [address] Glucose [Mass/Vol] 162 mg/dL High 70-105 [facility] Comment on above: Performed By: #### U DRUG #### [place] [address] #### UOXYS, UFENTS #### [address] [address] Potassium [Moles/Vol] 3.8 mmol/L Normal 3.5-5.1 [facility] Comment on above: Performed By: #### U DRUG #### [place] [address] #### UOXYS, UFENTS #### [address] [address] Sodium [Moles/Vol] 136 mmol/L Normal 136-145 [facility] Comment on above: Performed By: #### U DRUG #### [place] [address] #### UOXYS, UFENTS #### [address] [address] Urea nitrogen [Mass/Vol] 18 mg/dL Normal 7-18 [facility] Comment on above: Performed By: #### U DRUG #### [address] [address] #### UOXYS, UFENTS #### [place] [address] CBCon 05-14-2024 Erythrocyte distribution width (RBC) [Ratio] 12.7 % Normal 11.5-15.5 [facility] Comment on above: Performed By: #### U DRUG #### [place] [address] #### UOXYS, UFENTS #### [place] [address] Hematocrit (Bld) [Volume fraction] 47.6 % High 34.0-46.0 [facility] Comment on above: Performed By: #### U DRUG #### [place] [address] #### UOXYS, UFENTS #### [place] [address] Hgb 16.2 G/dL High 12.0-16.0 [facility] Comment on above: Performed By: #### U DRUG #### [place] [address] #### UOXYS, UFENTS #### [place] [address] MCH (RBC) [Entitic mass] 31.8 pg Normal 27.0-33.0 [facility] Comment on above: Performed By: #### U DRUG #### [place] [address] #### UOXYS, UFENTS #### [place] [address] MCHC 34.1 G/dL Normal 32.0-36.0 [facility] Comment on above: Performed By: #### U DRUG #### [place] [address] #### UOXYS, UFENTS #### [place] [address] MCV (RBC) [Entitic vol] 93.3 fL Normal 80.0-99.0 [facility] Comment on above: Performed By: #### U DRUG #### [place] [address] #### UOXYS, UFENTS #### [place] [address] Platelet 270 10 3/mcL Normal 150-450 [facility] Comment on above: Performed By: #### U DRUG #### [place] [address] #### UOXYS, UFENTS #### [place] [address] Platelet mean volume (Bld) [Entitic vol] 7.4 fL Normal 6.6-10.5 [facility] Comment on above: Performed By: #### U DRUG #### [place] [address] #### UOXYS, UFENTS #### [place] [address] RBC 5.10 10 6/mcL Normal 4.10-5.30 [facility] Comment on above: Performed By: #### U DRUG #### [place] [address] #### UOXYS, UFENTS #### [place] [address] WBC 8.6 10 3/mcL Normal 4.5-10.8 [facility] Comment on above: Performed By: #### U DRUG #### [place] [address] #### UOXYS, UFENTS #### [place] [address] LABORATORYOrdered By: Bharti Casarez on 05-14-2024 ABO and Rh group Nom (Bld) Blood group A Rh(D) positive Invalid Interpretation Code AO BB Auto SS Blood group antibody screen Ql Negative ABSC (05/14/24 10:40 PM) Normal AO BB Auto SS LABORATORYOrdered By: SYSTEM SYSTEM on 05-14-2024 aPTT Coag (PPP) [Time] 32.9 s Normal 25.0 - 35.0 seconds AO [facility] SS Comment on above: Interpretive Data: F or Heparin anticoagulation therapy, the recommended therapeutic range is: 45.4-75.9 seconds. Patients on heparin therapy may have an extreme result. Basophils (Bld) [#/Vol] 0.1 103/mcL Normal 0.0 - 0.2 10^3/mcL AO Workflow SS Basophils/100 WBC (Bld) 0.7 % Normal 0.0 - 2.5 % AO Workflow SS Calcium [Mass/Vol] 9.6 mg/dL Normal 8.4 - 10. 2 mg/dL AO ADM SS Chloride [Moles/Vol] 101 mmol/L Normal 98 - 10 7 mmol/L AO ADM SS CO2 [Moles/Vol] 26 mmol/L Normal 22 - 29 mmol/L AO ADM SS Creatinine [Mass/Vol] 1.18 mg/dL High 0.55 - 1.02 mg/dL AO ADM SS Comment on above: Interpretive Data: T esting performed on Siemens Dimension EXL analyzer using a modified kinetic Marian technique. Electrolyte Balance 9.0 mEq/L Normal 4.0 - 15 .0 mEq/L AO ADM SS Eosinophil, Absolute 0.3 103/mcL Normal 0.0 - 0 .7 10^3/mcL AO Workflow SS Eosinophils/100 WBC (Bld) 3.4 % Normal 0.0 - 7.0 % AO Workflow SS Erythrocyte distribution width (RBC) [Ratio] 12.7 % Normal 11.5 - 15.5 % AO Workflow SS Estimated Glomerular Filtration Rate 55 ml/min/1.73sqm Invalid Interpretation Code AO Chemistry S Comment on above: Interpretive Data: Stages of Chronic Kidney Disease (CKD) Stage Description eGFR(ml/min/1.73 sq.m.) CKD 1 Normal kidney function or >=90 normal kindney function with possible kidney damage (ex. Proteinuria) CKD 2 Kidney damage with mild loss 60-89 of kidney function CKD 3a Mild to moderate loss of kidney 45-59 function CKD 3b Moderate to severe loss of 30-44 of kindey function CKD 4 Severe loss of kidney function 15-29 CKD 5 Kidney failure <15 Note: (go live 2024) the eGFR calculation was updated to the 2020 CKD-EPI creatinine equation without a race factor to calculate the eGFR results. Ethanol [Mass/Vol] mg/dL Invalid Interpretation Code AO ADM SS Glucose [Mass/Vol] 162 mg/dL High 70 - 105 mg/dL AO ADM SS Hematocrit (Bld) [Volume fraction] 47.6 % High 34.0 - 46.0 % AO Workflow SS Hemoglobin (Bld) [Mass/Vol] 16.2 G/dL High 12.0 - 16.0 G/dL AO Workflow SS INR Coag (PPP) [Relative time] 1.1 {INR} Invalid Interpretation Code AO [facility] SS Comment on above: Interpretive Data: Elizabeth briones [employer] (CHEST, 1991, 102:312S-25S) recommended therapeutic range for oral anticoagulant therapy is: LOW RISK: Prophylaxis of venous thrombosis INR: 2.0-3.0 Treatment of pulmonary embolism 2.0-3.0 Prevention of systemic embolism 2.0-3.0 HIGH RISK: Mechanical prosthetic valves 2.5-3.5 Lymphocytes (Bld) [#/Vol] 2.5 103/mcL Normal 0.9 - 4.3 10^3/mcL AO Workflow SS Lymphocytes/100 WBC (Bld) 29.5 % Normal 20.0 - 40.0 % AO Workflow SS MCH (RBC) [Entitic mass] 31.8 pg Normal 27.0 - 33.0 pg AO Workflow SS MCHC 34.1 G/dL Normal 32.0 - 36.0 G/dL AO Workflow SS MCV (RBC) [Entitic vol] 93.3 fL Normal 80.0 - 99.0 fL AO Workflow SS Monocyte distribution width Auto (Bld) [Entitic vol] 19.05 1 Normal 0.00 - 20.00 AO Workflow SS Comment on above: Result Comment: For ED adult patients suspected of sepsis, MDW<=20.0 does not rule out sepsis or risk of sepsis Monocytes (Bld) [#/Vol] 0.6 103/mcL Normal 0.1 - 1.4 10^3/mcL AO Workflow SS Monocytes/100 WBC (Bld) 6.8 % Normal 2.0 - 13.0 % AO Workflow SS Neutrophils (Bld) [#/Vol] 5.1 103/mcL Normal 2.3 - 8.1 10^3/mcL AO Workflow SS Neutrophils/100 WBC (Bld) 59.6 % Normal 50.0 - 75.0 % AO Workflow SS Platelet mean volume (Bld) [Entitic vol] 7.4 fL Normal 6.6 - 10.5 fL AO Workflow SS Platelets (Bld) [#/Vol] 270 103/mcL Normal 150 - 450 10^3/mcL AO Workflow SS Potassium [Moles/Vol] 3.8 mmol/L Normal 3.5 - 5.1 mmol/L AO ADM SS PT Coag (PPP) [Time] 12.6 s Normal 9.0 - 1 4.4 seconds AO [facility] SS RBC (Bld) [#/Vol] 5.10 106/mcL Normal 4.10 - 5.30 10^6/mcL AO Workflow SS Sodium [Moles/Vol] 136 mmol/L Normal 136 - 145 mmol/L AO ADM SS Urea nitrogen [Mass/Vol] 18 mg/dL Normal 7 - 18 mg/dL AO ADM SS Urea nitrogen/Creatinine [Mass ratio] 15 ratio Normal 7 - 27 ratio AO ADM SS WBC (Bld) [#/Vol] 8.6 103/mcL Normal 4.5 - 10.8 10^3/mcL AO Workflow SS PROon 05-14-2024 PT Coag (PPP) [Time] 12.6 s Normal 9.0-14.4 [facility] Comment on above: Performed By: #### U DRUG #### [facility] [address] [place], [place] [address] #### UOXYS, UFENTS #### [facility] [address] [place] [address] PT International Ratio 1.1 Normal [facility] Comment on above: Result Comment: [employer] (CHEST, 1992, 102:312S-25S) recommended therapeutic range for oral anticoagulant therapy is: LOW RISK: Prophylaxis of venous thrombosis INR: 2.0-3.0 Treatment of pulmonary embolism 2.0-3.0 Prevention of systemic embolism 2.0-3.0 HIGH RISK: Mechanical prosthetic valves 2.5-3.5 Performed By: #### U DRUG #### [facility] [address] [place], [place] [address] #### UOXYS, UFENTS #### [address] [address] XR KNEE THREE VIEWS RIGHTon 05-14-2024 XR KNEE THREE VIEWS RIGHT ORIGINAL EXAMINATION: THREE XRAY VIEWS OF THE RIGHT KNEE 05/14/2024 11:09 pm COMPARISON: Right knee x-ray on 08/25/2018 HISTORY: ORDERING SYSTEM PROVIDED HISTORY: Reason for Exam: Pain Injury due to fall. FINDINGS: Right knee hemiarthroplasty of the lateral tibiofemoral compartment appears unchanged. There is no evidence of prosthesis loosening or hardware malfunction. No fracture or dislocation of the right knee is present. There is mild patellofemoral arthritis. There is no evidence of joint effusion. No periarticular calcifications are present. IMPRESSION: 1. No acute fracture or dislocation of the right knee. 2. Mild patellofemoral arthritis. 3. Right knee hemiarthroplasty. Interpreted by: Paul Verduzco MD Preliminary Report By: Paul Verduzco MD Electronically signed By Paul Verduzco MD Dictated Date: 05/14/2024 11:54:22 PM Prelim Date: 05/14/2024 11:56:04 PM Sign Date: 05/14/2024 11:56:04 PM Ordering Provider: SMILEY Zavaleta [facility] CNPNon 05-05-2024 CNPN Normal [facility] CNOVon 05-03-2024 CNOV Normal [facility] CNOVon 04-22-2024 CNOV Normal [facility] Urinalysis complete panel (U )on 04-22-2024 Bacteria LM.HPF (Urine sed) [#/Area] Negative Normal Negative [facility] Comment on above: Order Comment: Speci men Type: URINE SPECIMENOrdering Facility: [facility] Address: [address] [place] [address] Performed By: #### 2 4356-8 ####[facility] LABCLIA [id number] [place] [address] [place] Bilirubin Ql (U) Negative Normal Negative [facility] Comment on above: Order Comment: Speci men Type: URINE SPECIMENOrdering Facility: [facility] Address: [address] [place] [address] Performed By: #### 2 4356-8 ####[facility] LABCLIA [id number] [place] [address] [place] Clarity (Unsp spec) Clear Normal Clear [facility] Comment on above: Order Comment: Speci men Type: URINE SPECIMENOrdering Facility: [facility] Address: [address] [place] [address] Performed By: #### 2 4356-8 ####[facility] LABCLIA [id number] [place] [address] [place] Color (U) Yellow Normal Yellow [facility] Comment on above: Order Comment: Speci men Type: URINE SPECIMENOrdering Facility: [facility] Address: [address] [place] [address] Performed By: #### 2 4356-8 ####[facility] LABCLIA [id number] [place] [address] [place] Epithelial cells LM.HPF (Urine sed) [#/Area] None Seen Normal [facility] Comment on above: Order Comment: Speci men Type: URINE SPECIMENOrdering Facility: [facility] Address: [address] [place] [address] Performed By: #### 2 4356-8 ####[facility] LABCLIA [id number] [place] [address] [place] Glucose Test strip (U) [Mass/Vol] Negative Normal Negative [facility] Comment on above: Order Comment: Speci men Type: URINE SPECIMENOrdering Facility: [facility] Address: [address] [place] [address] Performed By: #### 2 4356-8 ####[facility] LABCLIA [id number] [place] [address] [place] Hemoglobin Ql (U) Negative Normal Negative [facility] [place] [facility] Comment on above: Order Comment: Speci men Type: URINE SPECIMENOrdering Facility: [facility] Address: [address] [place] [address] Performed By: #### 2 4356-8 ####[facility] LABCLIA [id number] [place] [address] [place] Hyaline casts (Urine sed) [#/Area] 0 /[LPF] Normal 0 /LPF [facility] Comment on above: Order Comment: Speci men Type: URINE SPECIMENOrdering Facility: [facility] Address: [address] [place] [address] Performed By: #### 2 4356-8 ####[facility] LABCLIA [id number] [place] [address] [place] Ketones Ql (U) Negative Normal Negative [facility] Comment on above: Order Comment: Speci men Type: URINE SPECIMENOrdering Facility: [facility] Address: [address] [place] [address] Performed By: #### 2 4356-8 ####[facility] LABCLIA [id number] [place] [address] [place] Leukocyte esterase Test strip Ql (U) Negative Normal Negative [facility] Comment on above: Order Comment: Speci men Type: URINE SPECIMENOrdering Facility: [facility] [facility] Address: [address] [place] [address] Performed By: #### 2 4356-8 ####[facility] LABCLIA [id number] [place] [address] [place] Nitrite Ql (U) Negative Normal Negative [facility] Comment on above: Order Comment: Speci men Type: URINE SPECIMENOrdering Facility: [facility] Address: [address] [place] [address] Performed By: #### 2 4356-8 ####[facility] LABCLIA [id number] [place] [address] [place] pH (U) 5.5 [pH] Normal <8.5 [facility] Comment on above: Order Comment: Speci men Type: URINE SPECIMENOrdering Facility: [facility] Address: [address] [place] [address] Performed By: #### 2 4356-8 ####[facility] LABIA [id number] [place] [address] [place] Protein (U) [Mass/Vol] Negative Normal Negative [facility] Comment on above: Order Comment: Speci men Type: URINE SPECIMENOrdering Facility: [facility] Address: [address] [place] [address] Performed By: #### 2 4356-8 ####[facility] [id number] [place] [address] [place] RBC LM.HPF (Urine sed) [#/Area] 0-2 /HPF Normal 0-2 /HPF [facility] Comment on above: Order Comment: Speci men Type: URINE SPECIMENOrdering Facility: [facility] Address: [address] [place] [address] Performed By: #### 2 4356-8 ####[facility] [id number] [place] [address] [place] Specific gravity (U) [Rel density] 1.023 Normal 1.005-1.03 0 [facility] Comment on above: Order Comment: Speci men Type: URINE SPECIMENOrdering Facility: [facility] Address: [address] [place] [address] Performed By: #### 2 4356-8 ####[facility] LABIA [id number] [place] [address] [place] Urobilinogen Ql (U) 0.2 EU/dL Normal 0.2-1.0 EU/dL [facility] Comment on above: Order Comment: Speci men Type: URINE SPECIMENOrdering Facility: [facility] Address: [address] [place] [address] Performed By: #### 2 4356-8 ####[facility] LABCLIA [id number] [place] [id number] [place] WBC LM.HPF (Urine sed) [#/Area] 0-5 /HPF Normal 0-5 /HPF [facility] Comment on above: Order Comment: Speci men Type: URINE SPECIMENOrdering Facility: [facility] Address: [address] [place] [address] Performed By: #### 2 4356-8 ####[facility] LABCLIA [id number] [place] [address] [place] Bedside Glucoseon 04-15-2024 FINGERSTICK GLU 131 mg/dL High 74-106 [facility] Comment on above: Result Comment: REYNALDO GEMENT OF PATIENT CARE PER NURSING PROTOCOL Performed By: #### L 501.080 #### [facility] [address] [place], [place], [address] FINGERSTICK GLU 141 mg/dL High 74-106 [facility] Comment on above: Result Comment: REYNALDO GEMENT OF PATIENT CARE PER NURSING PROTOCOL Performed By: #### L 501.080 #### [facility] [address] [place], [place], [address] CNOPon 04-15-2024 CNOP Operative Note (Enc) (OBGYWM) -- Encounter Status:Closed by YANNI MALONE on 04/18/24 Normal [facility] Discharge Instructionon 03-24 Discharge Instruction [facility] Medical Records Department [address] [place] [address] Instructions for Home/Discharge Instructions 04/15/24 1010 MR#: [id number] Acct: [id number] Name: OLGA LIDIA TELLO Rep #: [id number] : 1970 53 From: Yanni Malone MD PCP: Dr. Lulu Luciano MD [place] [facility] [place] Instructions Diet Discharge Diet: Light diet - advance as tolerated DC O2, CPAP, BIPAP needs Home O2 Discharge instructions: No Dressing / Incision Discharge Activity: May Drive (in 5-7 days or when no longer on pain medication) May shower in (days): 1 May resume sexual activity in: 6-8 weeks and - (Nothing in your vagina for 6 weeks. No vaginal or anal intercourse for 6-8 weeks) Dressing / Incision Call your doctor if your incision/area has: Sudden Increased Bleeding, Increased Pain/ Swelling and Foul Smelling Discharge Call your doctor if you observe: Fever of 101 or Higher and Using more than 1 pad per hour Cleanse incision/area with: Soap Water and - (Your incisions have skin glue, it can get wet, leave the glue on until it falls off. ) Follow Up Care Please Follow Up With: Yanni Malone MD When: With my office in 1 and 6 weeks or as needed. [phone] call r send a Stamplay message Test Results: Test results from this visit will be discussed in further detail at your follow-up appointment, if applicable. Discharge Plan Admission Attending Provider: Yanni Malone Primary Care Provider: Lulu Luciano Instructions Print Language: Egyptian Discharge Orders/Prescriptions Prescriptions: No Action duloxetine 60 MG capsule,delayed release(DR/EC) 120 mg PO DAILY gabapentin 800 mg Tablet 800 mg PO TID iron 50 mg iron Tablet 1 tab PO DAILY magnesium 250 mg Tablet 250 mg PO DAILY calcium carbonate-vitamin D3 500 mg-3.125 mcg (125 unit) tablet 1 tab PO DAILY Ozempic 2 mg/dose (8 mg/3 mL) pen injector 2 mg subcut CERDA omeprazole 40 mg capsule,delayed release(DR/EC) 40 mg PO DAILY fluticasone propionate 50 mcg/actuation spray,suspension 2 spray INTRANASAL DAILY Referrals / Follow Up: Lulu Luciano MD [Primary Care Provider] - Disposition Disposition (needs filled in before D/C Order can be placed): Home, Self Care 04/15/24 1238 Yanni Malone MD CC: Dr. Lulu Luciano MD Signed Normal [facility] Glucose measurement at bedsi deOrdered By: Yanni Malone on 04-15-2024 Bedside Glucose (Misc Panel) 131 mg/dL High 74-106 [facility] Comment on above: MANAGEMENT OF PATIEN T CARE PER NURSING PROTOCOL International normalized rat io (INR) calculationOrdered By: Socrates Lakhani on 04-15-2024 INR Coag (Bld) [Relative time] 1.0 {INR} [facility] MR/POSTOP.ANEon 04-15-2024 MR/POSTOP.ANE [facility] Medical Records Department [address] [place] [address] Anesthesia Postop Eval I 04/15/24 1248 MR#: [id number] Acct: [id number] Name: OLGA LIDIA TELLO Rep #: [id number] : 1970 53 From: Usman Madden PULPER PCP: Dr. Lulu Luciano MD [place] [facility] [place] Race[place] C Location: [place] [address] Anesthesia: Postop Eval I Current Vital Signs Temperature: 97.3 F Pulse Rate: 81 Blood Pressure: 168/94 Respiratory Rate: 16 Pulse Ox: 92 Assessment Airway patent: Yes Spontaneous unlabored respirations: Yes nausea: No Vomiting: No Anesthesia Complication: No Fluid Hydration Crystalloid volume administer (ml): 2,000 Total IV fluid infused: 2,000 Progress Note Anesthesia document: Postop Eval 1 completed: Yes 04/15/24 1248 Date Usman Sosat PULPER Cosigner Signature: Date CC: Signed Normal [facility] MR/[id number] 04-15-2024 MR/POSTOPAN2 [facility] Medical Records Department [address] [place] [address] Anesthesia Postop Eval II 04/15/24 1411 MR#: [id number] Acct: [id number] Name: OLGA LIDIA TELLO Rep #: [id number] : 1970 53 From: Marina Elias PCP: Dr. Lulu Luciano MD Status:REG SDC Y Race: C Location: [place] [address] Anesthesia Postop Eval I Sum Postop Eval Completion status Anesthesia document: Postop Eval 1 completed: Yes Anesthesia Postop Eval I Summary Anesthesia Postop Eval I Summary: Anesthesia Postop Eval I: Assessment Summary Airway patent Yes 04/15/24 12:48 [email or web address] Spontaneous unlabored Yes 04/15/24 12:48 PULPER.TNES respirations Mental status nausea No 04/15/24 12:48 PULPER.TNES Vomiting No 04/15/24 12:48 PULPER.TNES Anesthesia Postop Eval I: Fluid Summary Crystalloid volume administer 2,000 04/15/24 12:48 PULPER.TNES (ml) Colloids volume administered ( ml) Blood Product volume administered (ml) Total IV fluid infused 2,000 04/15/24 12:48 [email or web address].TNES Anesthesia Postop Eval I: Summary Notes Anesthesia Complication No 04/15/24 12:48 PULPER.TNES Anesthesia Complication Comment: Post-operative progress note Anesthesia: Postop Eval II Evaluation Mental status: Awake Pain Level: 5 (Getting pain medication. ) nausea: No Vomiting: No 04/15/24 1411 Date Marina Corbin Signature: Date CC: Signed Normal [facility] Operative Reporton 01-24-202 5 Operative Report [facility] Medical Records Department [address] [place] [address] Operative Report 04/15/24 1243 MR#: [id number] Acct: [id number] Name: OLGA LIDIA TELLO Rep #: [id number] : 1970 53 From: Yanni Malone MD PCP: Dr. Lulu Luciano MD Status:[facility] Location: [place] [address] Problems Associated Problem List Diagnoses (1) Dysmenorrhea: (2) Adenomyosis: (3) Menorrhagia with irregular cycle: (4) Adhesion of omentum: Operative Report (Standard) Operative Information Date of Procedure: 04/15/24 Pre-Operative Diagnosis: Adenomyosis, dysmenorrhea, menorrhagia Post-Operative Diagnosis: Same plus extensive omental adhesions and adhesions of the uterus to the anterior abdominal wall Surgery/Procedure Performed: TLH, bilateral salpingectomy, extensive lysis of adhesions, cystoscopy grocery department manager: Yes Cath Lab Nurse: Sherice Awan Tasks completed by assisted living manager: Dissecting tissue, Altering tissue, Insert Trochanter, Hemostasis: Electrocautery, Trocar and Retracting Additional sales support assistant?: Yes Additional Auto Roller #2: Robyn Gavin MS3 Tasks completed by sales support assistant #2: Closing and Retracting Additional sales support assistant?: No Type of Anesthesia: General RN Documented Start/Stop Times: Operation Date: 04/15/24 10:15 Case Time Into Pre-Op 04/15/24 07:52 Out of Pre-Op 04/15/24 10:07 Anesthesia Start 04/15/24 10:10 Into Room 04/15/24 10:10 Procedure Start 04/15/24 10:20 Procedure End 04/15/24 12:33 Anesthesia End 04/15/24 12:42 Out of Room 04/15/24 12:42 Procedure Start Time: 10:20 Procedure Stop Time: 12:33 Select all DRAINS/GRAFTS/IMPLANTS that apply: None Estimated Blood Loss: 40 Fluids Replaced: 2100 Specimen collected: Yes Description of specimen(s) removed: uterus, cervix, bilateral fallopian tubes Description of surgery: The patient was taken to the operating room where she was prepped and draped in the dorsal lithotomy position. Her arms were tucked to the side and padded and her legs were placed in the yellowfin stirrups. Care was taken to ensure that she was placed in a neurologically safe and neutral position. A weighted speculum was placed in the vagina and the anterior lip of the cervix was grasped with a single-tooth tenaculum. The cervix sounded to 12 centimeters. 2-0 Vicryl sutures were secured to the cervix at 3 and 9:00. The Uterine processing analyst wass placed into the cervix and the balloon inflated. The stay sutures were placed through the cup and secured down to the cervix. Once the uterine processing analyst was secured to the cervix the Cordova catheter was placed to straight drain. Attention was turned to the abdominal portion of the case. Before skin incisions were made they were infiltrated with 0.5% Marcaine solution for local anesthetic. A 5 mm intraumbilical incision was made and while tenting the anterior abdominal wall up with towel clamps a 5 mm blade less trocar and sleeve were advanced directly into the peritoneal cavity using the visible. Peritoneal placement was confirmed with the laparoscope the pneumoperitoneum was created, and the underlying abdominal contents were intact. The patient was placed in Trendelenburg and the above findings were noted. Right and left lateral 5 mm trochars were placed under direct visualization without difficulty. The wall of omental adhesions near the umbilicus made it difficult for us to use the umbilical port. Decision was made that those would need to be taken down to allow for adequate visualization and manipulation of the uterus and the tissue or otherwise her instruments would be passing through them and so with the laparoscope. A left upper quadrant port was then placed under direct visualization and the LigaSure device was used to clamp seal and transect the omental adhesions off of the anterior abdominal wall this took 17 minutes of additional time in order to take these adhesions down. Once hemostasis was assured the procedure could then be initiated. The antimesenteric portion of the tube was clamped sealed and transected serially on both sides with the LigaSure device. The round ligaments were clamped sealed and transected and a window was made in the peritoneum. The utero-ovarian ligaments were then clamped sealed and transected with the LigaSure device and the pedicles were hemostatic Some dense adhesions of the uterus to the anterior abdominal wall were taken down with blunt dissection the LigaSure device and cauterization. Once I was able to find a plane I was able to use the Bovie to take down some of the bladder adhesions and the adhesions of the uterus to the abdominal wall. This took an additional 20 minutes of operating time in order to take down to the uterine to abdominal wall adhesions. The bladder flap was dissected down with the LigaSure device and blunt dissection and the uterine arteries were (more content not included)... Normal [facility] Partial Thromboplast Timeon 04-15-2024 aPTT Coag (Bld) [Time] 26.4 s Normal 24.1-36.2 [facility] Comment on above: Performed By: #### L 300.4310, L300.3900 ####[facility] [address] [place], [address] ,Urineon 04-15-2024 Beta HCG ( test) Ql (U) Negative Normal [facility] Comment on above: Result Comment: Very dilute urine specimens, as indicated by a low specific gravity, may not contain computer help desk representative levels of hCG. If is still suspected, a first morning urine specimen should be collected 48 hours later and tested. Performed By: #### B TSPAT, L400.7600 #### [facility] [address] [place], [address] Prothrombin Time w/INRon INR Coag (PPP) [Relative time] 1.0 {INR} Normal [facility] Comment on above: Performed By: #### L 300.4310, L300.3900 ####[facility] [address] [place], [address] PT Coag (PPP) [Time] 13.5 s Normal 11.7-14.9 [facility] Comment on above: Performed By: #### L 300.4310, L300.3900 ####[facility] [address] [place], [address] Prothrombin timeOrdered By: Socrates Lakhani on 04-15-2024 PT Coag (PPP) [Time] 13.5 s 11.7-14.9 [facility] Surgery Specimen Level Von 0 1-24-2025 Surgery Specimen Level V Patient Age/Sex Location Account Attending Physician MIGUELANGEL TELLOA Farhan 53/[place] [id number]. Yanni Malone MD Specimen: [id number] Received: 04/15/24 Status: HEATH Hsu Num: [id number] Spec Type: HYSTERECT Subm Dr: Dr. Yanni Malone MD HEADER OPERATION: Total laparoscopic hysterectomy with bilateral salpingectomy PRE-OP DIAGNOSIS: Menorrhagia with irregular cycle, adenomyosis, dysmenorrhea TISSUE SUBMITTED: Uterus, cervix, bilateral fallopian tubes MICROSCOPIC DIAGNOSIS Uterus, cervix, bilateral fallopian tubes, hysterectomy, bilateral salpingectomy: Cervix - Chronic inflammation and squamous metaplasia. Endometrium - Proliferative endometrium. Myometrium - Intramural leiomyomas (largest measuring 1cm in greatest dimension). - Diffuse adenomyosis. Bilateral fallopian tubes- No pathologic diagnosis. A paratubal cyst. SJ.mr 04/18/2024 MICROSCOPIC DESCRIPTION Slides are reviewed. GROSS DESCRIPTION Received in fixative is one container labeled with the patient's name and designated uterus, cervix, bilateral fallopian tubes. The specimen consists of a hysterectomy specimen consisting of uterus with cervix and dethatched bilateral fallopian tubes. The uterus with cervix weighs 169 gm and measures 12 x 8 x 5 cm. The serosal surface is wood glistening. The ectocervical mucosa is unremarkable. The external os is circular in contour. The endocervical canal measures 3.5 cm in length and the endocervical mucosa is wood glistening and unremarkable. The triangular endometrial cavity measures 6 cm in length and 4 cm in width. The endometrium is wood glistening without any mass lesions and measures 0.1 cm in thickness. Sections of the uterine wall reveal three nodular masses. Largest mass measures 1cm in greatest dimension. Uterine wall measures 3cm in thickness. Focal areas of punctate hemorrhage are also noted suspicious for adenomyosis. Fallopian tubes are not identified as right or left. One fallopian tube measures 4.5cm in length and 0.5cm in diameter. Fimbrial end is identified. Sections reveal unremarkable cut surfaces. Second fallopian tube measures 2.5cm in length and 0.5cm in diameter. Fimbrial end is identified. A paratubal cyst is also noted adjacent to the fallopian tube measuring 0.5cm in greatest dimension. A detached piece of fallopian tube is also present in the container measuring 1.5cm in length and 0.3cm in diameter. Sections reveal unremarkable cut surfaces. Pharmacy Care Coordinator sections are submitted in ten cassettes as follows: 1 - anterior cervix, 2 - posterior cervix, 3 4 - anterior uterine wall, 5 6 - posterior uterine wall, 7- nodular masses, 8- one fallopian tube, 9- second fallopian tube and paratubal cyst, submitted in entirety, 10- detached piece of fallopian tube. : 04/15/2024 Patient Age/Sex Location Account Attending Physician OLGA LIDIA TELLO 53/[place] [facility] [id number]. Yanni Malone MD TC:1 CPT: 07470 Patient Age/Sex Location Account Attending Physician OLGA LIDIA TELLO 53/[place] [facility] [place] [id number]. Yanni Malone MD Signed (signature on file) Dr. Jesse Gudino MD 04/18/24 1403 Normal [facility] Comment on above: Performed By: #### P SUV ####[facility] [address] [facility] [place], [address] Type AND Screen - PAT ONLYon 04-15-2024 ABO and Rh group Nom (Bld) Blood group A Rh(D) positive Normal [facility] Comment on above: Order Comment: Surge ry Date: 04/15/24 Reason for Laboratory Test PREOP [id number] No N N S 0800 LAP TOTAL HYSTERECTOMY Performed By: #### B TSPAT, L400.7600 #### [facility] [address] [facility] [place], [address] Urine testOrdered By: Yanni Malone on 04-15-2024 HCG ( test) Ql (U) Negative [facility] Comment on above: Very dilute urine sp ecimens, as indicated by a low specificgravity, may not contain computer help desk representative levels of hCG. If is still suspected, a first morning urinespecimen should be collected 48 hours later and tested. aPTT Coag (PPP) [Time]Osiris magallanes By: Socrates Lakhani on 04-15-2024 aPTT Coag (Bld) [Time] 26.4 s 24.1-36.2 [facility] MR/PATDanae 04-14-2024 MR/PAT.[facility] Medical Records Department [address] [place] [address] PAT - Anesthesia 04/14/24 1101 MR#: [id number] Acct: [id number] Name: OLGA LIDIA TELLO Rep #: [id number] : 1970 53 From: Ricky Chino MD PCP: Dr. 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 When Was Last Pacemaker Check QUESTION #4 FULL TEXT: You/Your Family Experience fever (hyperthermia) with Anesthesia Last Oral Intake Last Oral intake: Last Oral Intake NPO since Meds taken in AM with sips of water? 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 - mechanical design engineer products: PONV - mechanical design engineer products Female Yes 04/06/24 14:56 HX of Motion Sickness No 04/06/24 14:56 HX of N/V After Surgery No 04/06/24 14:56 Non-Smoker Yes 04/06/24 14:56 Duration of Surgery greater Yes 04/06/24 14:56 than 60 minutes Number of Risk Factors 3 04/06/24 14:56 PONV Score Moderate Risk 04/06/24 14:56 Height Weight Height Weight: Anesthesia: Height Weight Height 5 ft 10 in 04/14/24 07:41 Weight: 112.945 kg 04/14/24 07:41 Respiratory Assessment Respiratory Assessment - mechanical design engineer products: Respiratory Tract Infection Hx - mechanical design engineer products Hx Respiratory Tract Infection No 04/06/24 14:56 STOP Sleep Apnea STOP Sleep Apnea - mechanical design engineer products: STOP Sleep Apnea - mechanical design engineer products Hx Hypertension No 04/06/24 14:56 Hx Sleep Apnea Yes 04/06/24 14:56 CPAP Yes: NONCOMPLIANT 04/06/24 14:56 BIPAP No 04/06/24 14:56 Do you snore loudly (louder than talking or can be heard Do you often feel tired/ fatigued/ sleepy during daytime? Has anyone observed you stop breathing during sleep? STOP Results Positive 04/06/24 14:56 QUESTION #5 FULL TEXT : Do you snore loudly (louder than talking or can be heard through closed doors)? 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 Specify any problems Hx of Preganancy in last 3 No 04/06/24 14:56 Months Nurse Filling Out Transfusion DSCHRIBER 04/06/24 14:56 Questions: Date: 04/06/24 04/06/24 14:56 Time: 14:57 04/06/24 14:56 Patient unable to answer at this time (ie. confused, unrespo /Reproduction History /Reproductive History - mechanical design engineer products: /Reproductive Hx- mechanical design engineer products Hx Now No 04/06/24 14:56 Gestational Age (in weeks): EDC: Hx Hx Para Hx Section SAB No 04/06/24 14:56 Active Medications Active Medications: Current Medications Generic Name Dose Route Start Last Admin Trade Name Freq PRN Reason Stop Dose Admin Acetaminophen 1,000 mg 04/15/24 10:15 Acetaminophen 500 Mg Tablet PO 04/15/24 10:16 PREOP ONE Celecoxib 400 mg 04/15/24 10:15 Celecoxib 200 Mg Capsule PO 04/15/24 10:16 X1 ONE Enoxaparin Sodium 40 mg 04/15/24 10:15 Enoxaparin 40 Mg/0.4 Ml Syringe SC 04/15/24 10:16 X1 ONE Gabapentin 600 mg 04/15/24 10:15 Gabapentin 600 Mg Tablet PO 04/15/24 10:16 PREOP ONE Lactated Ringer's 1,000 mls @ 40 mls/hr 04/15/24 10:15 IV .Q25H LOVE Cefazolin Sodium 2 gm/ N/A 20 mls @ 400 mls/hr 04/15/24 10:15 IV 04/15/24 10:17 PREOP ONE Lactated Ringer's 1,000 mls @ 70 mls/hr 04/15/24 10:15 IV .[id number] LOVE Insulin Human Lispro 0 unit 04/15/24 10:15 Insulin Lispro 100 Unit/Ml Insuln.Pen SC 04/15/24 16:00 (more content not included)... Normal [facility] 12 Lead EKGon 04-12-2024 12 Lead EKG [facility] Cardiovascular Services [address] [place] [address] 12 Lead EKG 04/12/24 1340 MR#: [id number] Acct: [id number] Name: OLGA LIDIA TELLO Rep #: [id number] : 1970 53 From: Claude Poon MD Attending Dr: Dr. Yanni Malone MD Status: D [place] [facility] [place]: Yanni Malone MD Date: 04/12/24 [place] [facility] [place]: F C Admitted: Test Reason : PREOP Blood Pressure : */* mmHG Vent. Rate : 71 BPM Atrial Rate : 71 BPM P-R Int : 120 ms QRS Dur : 72 ms QT Int : 414 ms P-R-T Axes : 4 37 38 degrees QTcB Int : 449 ms Normal sinus rhythm Low voltage QRS Borderline ECG When compared with ECG of 28-Dec-2013 06:56, No significant change was found Confirmed by SOM DAVISANTONIO ([id number]), proposal editor CASIE MART ([id number]) on 04/18/2024 2:15:00 PM Referred By: Yanni Malone Confirmed By: ANTONIO POON MD 04/18/24 1415 Date Claude Poon MD CC: Dr. Lulu uLciano MD; Dr. Yanni Malone MD Signed [facility] MR/PAT.[facility] 04-07-2024 MR/PAT.[facility] Medical Records Department [address] [place] [address] PAT - Anesthesia 04/07/24 1200 MR#: [id number] Acct: [id number] Name: OLGA LIDIA TELLO Rep #: [id number] : 1970 53 From: Socrates Lakhani MD PCP: Dr. Lulu Luciano MD Status:PRE [facility] [place] Race: C [place] [facility] [place] Pre-Assessment Diagnosis/Proposed Procedure Planned Operative Procedure(s): TOTAL LAP HYSTERECTOY WITH BILAT SALPINOOPHERECTOMY AND CYSTO Anesthesia History Anesthesia History - mechanical design engineer products: Anesthesia History - mechanical design engineer products Hx Hospitalization No 04/06/24 14:56 Any Problems With Anesthesia No 04/06/24 14:56 Cholinesterase deficiency No 04/06/24 14:56 You/Your Family Experience No 04/06/24 14:56 fever (hyperthermia) with Relationship Recent Exposure to Contagious No 01/27/24 11:55 Disease Does patient have nerve No 04/06/24 14:56 stimulator Patient instructed to have device shut off --Does patient have Pacemaker or ICD? When Was Last Pacemaker Check QUESTION #4 FULL TEXT: You/Your Family Experience fever (hyperthermia) with Anesthesia Last Oral Intake Last Oral intake: Last Oral Intake NPO since Meds taken in AM with sips of water? 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 - mechanical design engineer products: PONV - mechanical design engineer products Female Yes 04/06/24 14:56 HX of Motion Sickness No 04/06/24 14:56 HX of N/V After Surgery No 04/06/24 14:56 Non-Smoker Yes 04/06/24 14:56 Duration of Surgery greater Yes 04/06/24 14:56 than 60 minutes Number of Risk Factors 3 04/06/24 14:56 PONV Score Moderate Risk 04/06/24 14:56 Height Weight Height Weight: Anesthesia: Height Weight Height 5 ft 10 in 02/25/24 10:49 Respiratory Assessment Respiratory Assessment - mechanical design engineer products: Respiratory Tract Infection Hx - mechanical design engineer products Hx Respiratory Tract Infection No 04/06/24 14:56 STOP Sleep Apnea STOP Sleep Apnea - mechanical design engineer products: STOP Sleep Apnea - mechanical design engineer products Hx Hypertension No 04/06/24 14:56 Hx Sleep Apnea Yes 04/06/24 14:56 CPAP Yes: NONCOMPLIANT 04/06/24 14:56 BIPAP No 04/06/24 14:56 Do you snore loudly (louder than talking or can be heard Do you often feel tired/ fatigued/ sleepy during daytime? Has anyone observed you stop breathing during sleep? STOP Results Positive 04/06/24 14:56 QUESTION #5 FULL TEXT : Do you snore loudly (louder than talking or can be heard through closed doors)? 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 Specify any problems Hx of Preganancy in last 3 No 04/06/24 14:56 Months Nurse Filling Out Transfusion DSCHRIBER 04/06/24 14:56 Questions: Date: 04/06/24 04/06/24 14:56 Time: 14:57 04/06/24 14:56 Patient unable to answer at this time (ie. confused, unrespo /Reproduction History /Reproductive History - mechanical design engineer products: /Reproductive Hx- mechanical design engineer products Hx Now No 04/06/24 14:56 Gestational Age (in weeks): EDC: Hx Hx Para Hx Section SAB No 04/06/24 14:56 [facility] Medical History (Updated 04/06/24 @ 15:24 by Serenity Santiago) Wears glasses Depression Anxiety Diabetes Bladder disease Arthritis Low iron High cholesterol Easy bruising Back pain TIA (transient ischemic attack) Vertigo Restless legs Dietary restriction History of IBS Gastric reflux Shortness of breath on exertion CPAP (continuous positive airway pressure) dependence Non-smoker Leg cramps History of pain when walking History of stress test Contusion of left shoulder Left shoulder strain Callus of toe Foot deformity Neuropathy of both feet Home Medications ???Medication ???Instructions ???Recorded ???Last Taken ???Type duloxetine 60 mg capsule,delayed 120 mg PO DAILY 01/10/15 Unknown History release gabapentin 800 mg tablet 800 mg PO TID NEUROPATHY 07/24/22 Unknown History iron 50 mg iron tablet 1 tab PO DAILY 07/24/22 Unknown History magnesium 250 mg tablet 250 mg PO CHIARA (more content not included)... Normal [facility] 25(OH)D3 [facility] 25-hydroxyvitamin D3 [Mass/Vol] 64.7 ng/mL Normal 31.0-80.0 [facility] Comment on above: Order Comment: Barak chavez Type: BLOOD SPECIMENOrdering Facility: [facility] Address: [address] [place] [address] Result Comment: Clas sification of 25 [place] Vitamin D status:Deficiency/Insufficiency: < or = 30 ng/ml.Sufficiency/Optimal Levels: 31-80 ng/mLToxicity: > 100 ng/mL.Test performed by chemiluminescent immunoassay. Performed By: #### 1 989-3 ####[facility] LABCLIA [id number] [place] [address] [place] CBC panel Auto (Bld)on 04-01 Erythrocyte distribution width (RBC) [Ratio] 13.1 % Normal 11.5-15.0 [facility] Comment on above: Order Comment: Barak chavez Type: BLOOD SPECIMENOrdering Facility: [facility] Address: [address] [place] [address] Performed By: #### 5 8410-2 ####[facility] ARIELLA [id number] [address] [place] Hematocrit (Bld) [Volume fraction] 44.9 % Normal 36.0-46.0 [facility] Comment on above: Order Comment: Speci men Type: BLOOD SPECIMENOrdering Facility: [facility] Address: [address] [place] [address] Performed By: #### 5 8410-2 ####[facility]STITUTE[facility] MCHANA [id number] [place] [address] [place] Hemoglobin (Bld) [Mass/Vol] 14.8 g/dL Normal 11.5-15.5 [facility] Comment on above: Order Comment: Speci men Type: BLOOD SPECIMENOrdering Facility: [facility] Address: [address] [place] [address] Performed By: #### 5 8410-2 ####[facility] MCHANA [id number] [place] [address] [place] MCH (RBC) [Entitic mass] 30.6 pg Normal 26.0-34.0 [facility] Comment on above: Order Comment: Speci men Type: BLOOD SPECIMENOrdering Facility: [facility] Address: [address] [place] [address] Performed By: #### 5 8410-2 ####[facility] INSTITUTENCLIA [id number] [place] [address] [place] MCHC (RBC) [Mass/Vol] 33.0 g/dL Normal 30.5-36.0 [facility] Comment on above: Order Comment: Speci men Type: BLOOD SPECIMENOrdering Facility: [facility] Address: [address] [place] [address] Performed By: #### 5 8410-2 ####[facility] BARAKWANA MLIA [id number] [place] [address] [place] MCV (RBC) [Entitic vol] 92.8 fL Normal 80.0-100.0 [facility] Comment on above: Order Comment: Speci men Type: BLOOD SPECIMENOrdering Facility: [facility] Address: [address] [place] [address] Performed By: #### 5 8410-2 ####[facility]ITALL[facility] [id number] [place] [address] [place] Nucleated RBC (Bld) [#/Vol] 10*3/uL Normal <0.01 [facility] Comment on above: Order Comment: Speci men Type: BLOOD SPECIMENOrdering Facility: [facility] Address: [address] [place] [address] Performed By: #### 5 8410-2 ####[facility] [id number] [place] [address] [place] Platelet mean volume (Bld) [Entitic vol] 8.9 fL Low 9.0-12.7 [facility] Comment on above: Order Comment: Speci men Type: BLOOD SPECIMENOrdering Facility: [facility] Address: [address] [place] [address] Performed By: #### 5 8410-2 ####[facility] [id number] [place] [address] [place] Platelets (Bld) [#/Vol] 308 10*3/uL Normal 150-400 [facility] Comment on above: Order Comment: Speci men Type: BLOOD SPECIMENOrdering Facility: [facility] Address: [address] [place] [address] Performed By: #### 5 8410-2 ####[facility] INSTITUTENCLIA [id number] [place] [address] [place] RBC (Bld) [#/Vol] 4.84 10*6/uL Normal 3.90-5.20 [facility] Comment on above: Order Comment: Speci men Type: BLOOD SPECIMENOrdering Facility: [facility] Address: [address] [place] [address] Performed By: #### 5 8410-2 ####[facility] BARAKSHERINEA [id number] [place] [address] [place] WBC (Bld) [#/Vol] 7.74 10*3/uL Normal 3.70-11.00 [facility] Comment on above: Order Comment: Speci men Type: BLOOD SPECIMENOrdering Facility: [facility] Address: [address] [place] [address] Performed By: #### 5 8410-2 ####[facility] INSTITUTELINDA [id number] [place] [address] [place] CNOVon 04-01-2024 CNOV Normal [facility] Comprehensive metabolic 2000 panelon 04-01-2024 Albumin [Mass/Vol] 4.0 g/dL Normal 3.9-4.9 [facility] Comment on above: Order Comment: Speci men Type: BLOOD SPECIMENOrdering Facility: [facility] Address: [address] [place] [address] Performed By: #### 2 4323-8, 03468-7 ####[facility] INSTITUTEDOUGA [id number] [place] [address] [place] ALP [Catalytic activity/Vol] 61 U/L Normal 34-123 [facility] Comment on above: Order Comment: Speci men Type: BLOOD SPECIMENOrdering Facility: [facility] Address: [address] [place] [address] Performed By: #### 2 4323-8, 07985-3 ####[facility] [id number] [place] [address] [place] ALT [Catalytic activity/Vol] 9 U/L Normal 7-38 [facility] Comment on above: Order Comment: Speci men Type: BLOOD SPECIMENOrdering Facility: [facility] Address: [address] [place] [address] Performed By: #### 2 4323-8, ####[facility] SELMA MILLTOWNCLIA [id number] [place] [address] [place] Anion gap [Moles/Vol] 10 mmol/L Normal 8-15 [facility] Comment on above: Order Comment: Speci men Type: BLOOD SPECIMENOrdering Facility: [facility] Address: [address] [place] [address] Performed By: #### 2 4323-8, 45974-3 ####[facility] MILLTOWNCLIA [id number] [place] [address] [place] AST [Catalytic activity/Vol] 23 U/L Normal 13-35 [facility] Comment on above: Order Comment: Speci men Type: BLOOD SPECIMENOrdering Facility: [facility] Address: [address] [place] [address] Performed By: #### 2 4323-8, ####[facility] MILLTOWNCLIA [id number] [place] [address] [place] Bilirubin [Mass/Vol] 0.5 mg/dL Normal 0.2-1.3 [facility] Comment on above: Order Comment: Speci men Type: BLOOD SPECIMENOrdering Facility: [facility] Address: [address] [place] [address] Performed By: #### 2 4323-8, ####[facility] SELMA MILLTOWNCLIA [id number] [place] [address] [place] Calcium [Mass/Vol] 10.0 mg/dL Normal 8.5-10.2 [facility] Comment on above: Order Comment: Speci men Type: BLOOD SPECIMENOrdering Facility: [facility] Address: [address] [place] [address] Performed By: #### 2 4323-8, ####[facility] INSTITUTENCLIA [id number] [place] [address] [place] Chloride [Moles/Vol] 105 mmol/L Normal 98-107 [facility] Comment on above: Order Comment: Speci men Type: BLOOD SPECIMENOrdering Facility: [facility] Address: [address] [place] [address] Performed By: #### 2 4323-8, ####[facility] INSTITUTENCDELTA [facility] [id number] [place] [address] [place] CO2 [Moles/Vol] 24 mmol/L Normal 22-30 [facility] Comment on above: Order Comment: Speci men Type: BLOOD SPECIMENOrdering Facility: [facility] Address: [address] [place] [address] Performed By: #### 2 4323-8, ####[facility] INSTITUTENCLIA [id number] [place] [address] [place] Creatinine [Mass/Vol] 0.76 mg/dL Normal 0.58-0.96 [facility] Comment on above: Order Comment: Speci men Type: BLOOD SPECIMENOrdering Facility: [facility] Address: [address] [place] [address] Performed By: #### 2 4323-8, ####[facility] INSTITUTENCLIA [id number] [place] [address] [place] Creatinine and Glomerular filtration rate.predicted panel (S/P/Bld) 93 mL/min/1.73m??? Normal >=60 [facility] Comment on above: Order Comment: Speci men Type: BLOOD SPECIMENOrdering Facility: [facility] Address: [address] [place] [address] Result Comment: Carolin mated Glomerular Filtration Rate (eGFR) is calculated using the 2020 CKD-EPI creatinine equation. This equation utilizes serum creatinine, sex, and age as parameters. The creatinine assay has traceable calibration to isotope dilution-mass spectrometry. Refer to KDIGO guidelines for clinical interpretation. In patients with unstable renal function, e.g. those with acute kidney injury, the eGFR may not accurately reflect actual GFR. Performed By: #### 2 4323-8, ####[facility] [id number] [place] [address] [place] Glucose [Mass/Vol] 128 mg/dL High 74-99 [facility] Comment on above: Order Comment: Barak chavez Type: BLOOD SPECIMENOrdering Facility: [facility] Address: [address] [place] [address] Result Comment: The [place] Diabetes Association (ADA) provides guidance for cutoff values for fasting glucose and random glucose. The ADA defines fasting as no caloric intake for at least 8 hours. Fasting plasma glucose results between 100 to 125 mg/dL indicate increased risk for diabetes (prediabetes).Fasting plasma glucose results greater than or equal to 126 mg/dL meet the criteria for diagnosis of diabetes. In the absence of unequivocal hyperglycemia, results should be confirmed by repeat testing. In a patient with classic symptoms of hyperglycemia or hyperglycemic crisis, random plasma glucose results greater than or equal to 200 mg/dL meet the criteria for diagnosis of diabetes.Reference: Standards of Medical Care in Diabetes 2016, [place] Diabetes Association. Diabetes Care. 2016.39(Suppl 1). Performed By: #### 2 4323-8, 06802-5 ####[facility] [id number] [place] [address] [place] Potassium [Moles/Vol] 4.3 mmol/L Normal 3.7-5.1 [facility] Comment on above: Order Comment: Barak chavez Type: BLOOD SPECIMENOrdering Facility: [facility] Address: [address] [id number] Performed By: #### 2 4323-8, 21674-2 ####[facility] MILLWNCLIA [id number] [place] [address] [place] Protein [Mass/Vol] 6.7 g/dL Normal 6.3-8.0 [facility] Comment on above: Order Comment: Speci men Type: BLOOD SPECIMENOrdering Facility: [facility] Address: [address] [place] [address] Performed By: #### 2 4323-8, 97065-4 ####[facility] INSTITUTENCLIA [id number] [place] [address] [place] Sodium [Moles/Vol] 139 mmol/L Normal 136-144 [facility] Comment on above: Order Comment: Speci men Type: BLOOD SPECIMENOrdering Facility: [facility] Address: [address] [place] [address] Performed By: #### 2 4323-8, 91620-4 ####[facility] INSTITUTENCLIA [id number] [place] [address] [place] Urea nitrogen [Mass/Vol] 16 mg/dL Normal 7-21 [facility] Comment on above: Order Comment: Speci men Type: BLOOD SPECIMENOrdering Facility: [facility] Address: [address] [place] [address] Performed By: #### 2 4323-8, 19211-1 ####[facility] INSTITUTENCLIA [id number] [place] [address] [place] HbA1c (Bld)on 04-01-2024 Average glucose Estimated from glycated hemoglobin (Bld) [Mass/Vol] 94 mg/dL Normal [facility] Comment on above: Order Comment: Speci men Type: BLOOD SPECIMENOrdering Facility: [facility] Address: [address] [place] [address] Result Comment: eAG: (Estimated average glucose) is a calculated value from HgbA1c and is computer help desk representative of the average blood glucose level in the last 2-3 month period. Performed By: #### 5 5454-3 ####[facility] LABIA [id number] [address] [place] HbA1c (Bld) [Mass fraction] 4.9 % Normal 4.3-5.6 [facility] Comment on above: Order Comment: Speci men Type: BLOOD SPECIMENOrdering Facility: [facility] Address: [address] [place] [address] Result Comment: [place] Diabetes Association guidelines indicate that patients with HgbA1c in the range 5.7-6.4% are at increased risk for development of diabetes, and intervention by lifestyle modification may be beneficial. HgbA1c greater or equal to 6.5% is considered diagnostic of diabetes. Performed By: #### 5 5454-3 ####[facility] LABIA [id number] [address] [place] Lipid 1996 panelon 5 Cholesterol [Mass/Vol] 164 mg/dL Normal <200 [facility] Comment on above: Order Comment: Barak chavez Type: BLOOD SPECIMENOrdering Facility: [facility] Address: [address] [place] [address] Result Comment: <200 mg/dL, Desirable 200-239 mg/dL, Borderline high>239 mg/dL, High Performed By: #### 2 4331-1 ####[facility] [id number] [address] STATES OF [facility] [id number] [place] [address] [place] Cholesterol in HDL [Mass/Vol] 44 mg/dL Normal >39 [facility] Comment on above: Order Comment: Jyotii men Type: BLOOD SPECIMENOrdering Facility: [facility] Address: [address] [place] [address] Result Comment: 40-5 9 mg/dL, Acceptable>59 mg/dL, High: Negative risk factor for coronary heart disease<40 mg/dL, Low: Positive risk factor for coronary heart disease Performed By: #### 2 4331-1 ####[facility] LABCLIA [id number] [address] [id number] [address] [place] Cholesterol in LDL [Mass/Vol] 95 mg/dL Normal <100 [facility] Comment on above: Order Comment: Speci men Type: BLOOD SPECIMENOrdering Facility: [facility] Address: [address] [place] [address] Result Comment: <100 mg/dL, Optimal 100-129 mg/dL, Near optimal/above optimal 130-159 mg/dL, Borderline high 160-189 mg/dL, High>189 mg/dL, Very highSecondary prevention optimal LDL Cholesterol levels are recommended to be < 70 mg/dL Performed By: #### 2 4331-1 ####[facility] LABCLIA [id number] [address] [id number] [place] [address] [place] Cholesterol in LDL/Cholesterol in HDL [Mass ratio] 2.16 {ratio} Normal <2.54 [facility] Comment on above: Order Comment: Speci men Type: BLOOD SPECIMENOrdering Facility: [facility] Address: [address] [place] [address] Result Comment: Refe rence:1. National Cholesterol Education Program ATP III Guideline At-A-Glance Quick Desk Reference: National Heart, Lung, and Blood Opal. National Institutes of Health. 2001: NIH Publication No. 01-3305.2. An International Atherosclerosis Society position paper: global recommendations for the management of dyslipidemia: executive summary, Atherosclerosis. 2014: 232(2):410-413. Performed By: #### 2 4331-1 ####[facility] LABCLIA [id number] [address] [id number] [place] [address] [place] Cholesterol in VLDL [Mass/Vol] 25 mg/dL Normal <30 [facility] Comment on above: Order Comment: Speci men Type: BLOOD SPECIMENOrdering Facility: [facility] Address: [address] [place] [address] Performed By: #### 2 4331-1 ####[facility] LABCLIA [id number] [address] [id number] [place] [address] [place] Cholesterol non HDL [Mass/Vol] 120 mg/dL Normal <130 [facility] Comment on above: Order Comment: Speci men Type: BLOOD SPECIMENOrdering Facility: [facility] Address: [address] [place] [address] Result Comment: <130 mg/dL, Optimal 130-159 mg/dL, Near optimal/above optimal 160-189 mg/dL, Borderline high 190-219 mg/dL, High>219 mg/dL, Very highSecondary prevention optimal non HDL Cholesterol levels are recommended to be <100 mg/dL Performed By: #### 2 4331-1 ####[facility] LABCLIA [id number] [address] [id number] [place] [address] [place] Cholesterol.total/Cho lesterol in HDL [Mass ratio] 3.73 {ratio} Normal <5.10 [facility] Comment on above: Order Comment: Speci men Type: BLOOD SPECIMENOrdering Facility: [facility] Address: [address] [place] [address] Performed By: #### 2 4331-1 ####[facility] LABCLIA [id number] [place] [id number] [facility] [id number] [place] [address] [place] FASTING TIME 12 hrs Normal [facility] Comment on above: Order Comment: Speci men Type: BLOOD SPECIMENOrdering Facility: [facility] Address: [address] [place] [address] Performed By: #### 2 4331-1 ####[facility] LABCLIA [id number] [address] [id number] [place] [address] [place] Triglyceride [Mass/Vol] 125 mg/dL Normal <150 [facility] Comment on above: Order Comment: Speci men Type: BLOOD SPECIMENOrdering Facility: [facility] Address: [address] [place] [address] Result Comment: <150 mg/dL, Normal 150-199 mg/dL, Borderline high 200-499 mg/dL, High>499 mg/dL, Very high Performed By: #### 2 4331-1 ####[facility] LABCLIA [id number] [address] [id number] [place] [address] [place] Magnesium [facility] 04-01 Magnesium [Mass/Vol] 1.8 mg/dL Normal 1.7-2.3 [facility] Comment on above: Order Comment: Speci men Type: BLOOD SPECIMENOrdering Facility: [facility] Address: [address] [place] [address] Performed By: #### 2 4323-8, 83412-3 ####[facility] [id number] [place] [address] [place] CNOVon 03-31-2024 CNOV Normal [facility] BACTERIAL VAGINOSIS NAATon 0 03-30-2024 Lactobacillus crispatus+gasseri+hua senii + Gardnerella vaginalis + Atopobium vaginae rRNA ANOOP+probe Ql (Vag fld) Not detected Normal Not detected [facility] Comment on above: Order Comment: Speci men Type: SWABOrdering Facility: [facility] Address: [address] [place] [address] Performed By: #### B VAMP, CVTV ####[facility] LABCLIA [id number] [address] [place] JEEVAN/TRICHOMONAS NAATon 0 03-30-2024 C. glabrata RNA ANOOP+probe Ql (Vag fld) Not detected Normal Not detected [facility] Comment on above: Order Comment: Speci men Type: SWABOrdering Facility: [facility] Address: [address] [place] [address] Performed By: #### B VAMP, CVTV ####[facility] LABCLIA [id number] [place] [address] [place] Jeevan sp DNA ANOOP+probe Ql (Vag fld) Not detected Normal Not detected [facility] Comment on above: Order Comment: Speci men Type: SWABOrdering Facility: [facility] Address: [address] [place] [address] Result Comment: The Jeevan species group target includes C. albicans, C. tropicalis, C. parapsilosis, and C. dubliniensis. Performed By: #### B VAMP, CVTV ####[facility] LABCLIA [id number] [place] [address] [place] T. vaginalis DNA ANOOP+probe Ql (Unsp spec) Not detected Normal Not detected [facility] Comment on above: Order Comment: Speci men Type: SWABOrdering Facility: [facility] Address: [address] [place] [address] Performed By: #### B VAMP, CVTV ####[facility] LABCLIA [id number] [place] [address] [place] CNOVon 03-30-2024 CNOV Normal [facility] HISTORY PHYSICALon HISTORY PHYSICAL Normal [facility] CNOVon 03-29-2024 CNOV Normal [facility] SURGICAL PATHOLOGYon 025 CASE REPORT Normal [facility] Comment on above: Order Comment: Speci men Type: TISSUE SPECIMENOrdering Facility: [facility] Address: [address] [place] [address] Result Comment: Surg ical Pathology Report Case: [id number] Provider: Irasema Blood MD Collected: 03/29/2024 02:32 PMOrdering Location: OB/Gynecology Received: 03/29/2024 03:29 PMPathologist: Irasema Caldera MDSpecimen: Endometrium, Biopsy Performed By: #### S ####[facility] LABCLIA [id number] [place] [address] [place] CLINICAL HISTORY menorrhagia with irr egular cycle Normal [facility] Comment on above: Order Comment: Speci men Type: TISSUE SPECIMENOrdering Facility: [facility] Address: [address] [place] [address] Performed By: #### S ####[facility] LABCLIA [id number] [address] [place] FINAL DIAGNOSIS Normal [facility] Comment on above: Order Comment: Speci men Type: TISSUE SPECIMENOrdering Facility: [facility] Address: [address] [place] [address] Result Comment: Endo metrium, biopsy - Benign weakly proliferative endometrium. - Benign endocervix with squamous metaplasia. - Benign ectocervix. Performed By: #### S ####[facility] LABCLIA [id number] [place] [address] [place] FINAL PERFORMING LAB Normal [facility] Comment on above: Order Comment: Speci men Type: TISSUE SPECIMENOrdering Facility: [facility] Address: [address] [place] [address] Result Comment: Diag nostic interpretation performed at: [facility], [address] [place] [address] CLIA# [id number] Director: Rahul Nguyen MD Performed By: #### S ####[facility] LABCLIA [id number] [place] [address] [place] GROSS DESCRIPTION Normal [facility] Comment on above: Order Comment: Speci men Type: TISSUE SPECIMENOrdering Facility: [facility] Address: [address] [place] [address] Result Comment: A. E ndometrium, BiopsyReceived in formalin are multiple wood-brown, soft feathery segments of tissue admixed with mucinous material aggregating to 1.5 x 0.7 x 0.2 cm. Totally submitted in one cassette.[facility] March 29, 2024 10:39 PMGross examination performed at [facility], [address] [place] [address] Performed By: #### S ####[facility] LABCLIA [id number] [place] [address] [place] UA DIP,URINE HCG (POC)on Beta HCG ( test) Ql (U) Negative Negative [facility] Comment on above: Location:[facility], [address] , [place], [address] [employer] ([employer]) Internal QC OK [facility] Location:[facility], [address] [facility], [place], [address] [facility] POINT OF CARE [facility] US FEMALE PELVIS TRANSVAGon 03-22-2024 US FEMALE PELVIS TRANSVAG Normal [facility] CBC panel Auto (Bld)on 03-21 Erythrocyte distribution width (RBC) [Ratio] 13.9 % 11.5 - 15.0 % [facility] Hematocrit (Bld) [Volume fraction] 45.8 % 36.0 - 46.0 % [facility] Hemoglobin (Bld) [Mass/Vol] 15.2 g/dL 11.5 - 15.5 g/dL [facility] Interpretation and review of laboratory results Abnormal [facility] MCH (RBC) [Entitic mass] 30.8 pg 26.0 - 34.0 pg [facility] MCHC (RBC) [Mass/Vol] 33.2 g/dL 30.5 - 36.0 g/dL [facility] MCV (RBC) [Entitic vol] 92.7 fL 80.0 - 100.0 fL [facility] Nucleated RBC (Bld) [#/Vol] NINF [facility] Platelet mean volume (Bld) [Entitic vol] 8.7 fL Low 9.0 - 12.7 fL [facility] Platelets (Bld) [#/Vol] 321 10*3/uL [facility] RBC (Bld) [#/Vol] 4.94 10*6/uL 3.90 - 5.20 m/uL [facility] WBC (Bld) [#/Vol] 7.12 10*3/uL [facility] Erythrocyte distribution width (RBC) [Ratio] 13.9 % Normal 11.5-15.0 [facility] Comment on above: Order Comment: Speci men Type: BLOOD SPECIMENOrdering Facility: [facility] Address: [address] [place] [address] Performed By: #### 5 8410-2 ####[facility] [id number] [place], [place] [id number] [place] [address] [facility] Hematocrit (Bld) [Volume fraction] 45.8 % Normal 36.0-46.0 [facility] Comment on above: Order Comment: Speci men Type: BLOOD SPECIMENOrdering Facility: [facility] Address: [address] [place] [address] Performed By: #### 5 8410-2 ####[facility] [id number] [place] [address] [place] Hemoglobin (Bld) [Mass/Vol] 15.2 g/dL Normal 11.5-15.5 [facility] Comment on above: Order Comment: Speci men Type: BLOOD SPECIMENOrdering Facility: [facility] Address: [address] [place] [address] Performed By: #### 5 8410-2 ####[facility] [id number] [place] [address] [place] MCH (RBC) [Entitic mass] 30.8 pg Normal 26.0-34.0 [facility] Comment on above: Order Comment: Speci men Type: BLOOD SPECIMENOrdering Facility: [facility] Address: [address] [place] [address] Performed By: #### 5 8410-2 ####[facility] [id number] [address] [place] MCHC (RBC) [Mass/Vol] 33.2 g/dL Normal 30.5-36.0 [facility] Comment on above: Order Comment: Speci men Type: BLOOD SPECIMENOrdering Facility: [facility] Address: [address] [place] [address] Performed By: #### 5 8410-2 ####[facility] [id number] [place] [address] [place] MCV (RBC) [Entitic vol] 92.7 fL Normal 80.0-100.0 [facility] Comment on above: Order Comment: Speci men Type: BLOOD SPECIMENOrdering Facility: [facility] Address: [address] [place] [address] Performed By: #### 5 8410-2 ####[facility] INSTITUTEANA MLIJeanette [id number] [place] [address] [place] Nucleated RBC (Bld) [#/Vol] 10*3/uL Normal <0.01 [facility] Comment on above: Order Comment: Speci men Type: BLOOD SPECIMENOrdering Facility: [facility] Address: [address] [place] [address] Performed By: #### 5 8410-2 ####[facility]UTENC[facility] [id number] [place] [address] [place] Platelet mean volume (Bld) [Entitic vol] 8.7 fL Low 9.0-12.7 [facility] Comment on above: Order Comment: Speci men Type: BLOOD SPECIMENOrdering Facility: [facility] Address: [address] [place] [address] Performed By: #### 5 8410-2 ####[facility] [id number] [place] [address] [place] Platelets (Bld) [#/Vol] 321 10*3/uL Normal 150-400 [facility] Comment on above: Order Comment: Speci men Type: BLOOD SPECIMENOrdering Facility: [facility] Address: [address] [place] [address] Performed By: #### 5 8410-2 ####[facility] [id number] [place] [address] [place] RBC (Bld) [#/Vol] 4.94 10*6/uL Normal 3.90-5.20 [facility] Comment on above: Order Comment: Speci men Type: BLOOD SPECIMENOrdering Facility: [facility] Address: [address] [place] [address] Performed By: #### 5 8410-2 ####[facility] [id number] [place] [address] [place] WBC (Bld) [#/Vol] 7.12 10*3/uL Normal 3.70-11.00 [facility] Comment on above: Order Comment: Speci men Type: BLOOD SPECIMENOrdering Facility: [facility] Address: [address] [place] [address] Performed By: #### 5 8410-2 ####[facility] HE[facility] SYSTEMJeanette [id number] [place] [id number] [place] CNOVon 03-21-2024 CNOV Normal [facility] Estradiol SerPl-mCncon 03-21 E2 [Mass/Vol] pg/mL Normal [facility] Comment on above: Order Comment: Speci men Type: BLOOD SPECIMENOrdering Facility: [facility] Address: [address] [place] [address] Result Comment: This test is not suitable for patients receiving treatment with the drug Fulvestrant (Faslodex). The drug causes an interference leading to falsely elevated estradiol results.Menstrual cycle Estradiol reference ranges:Follicular : < 234 pg/mLOvulation : 41 to 398 pg/mLLuteal : < 342 pg/mLPregnancy Estradiol reference ranges vary by gestational period:First trimester : 154 to 3243 pg/mLSecond trimester : 1561 to [address]649 pg/mLThird trimester : 8285 to >68717 pg/mLPost-menopausal Estradiol reference range: < 41 pg/mLReference: 1. Estradiol - E2 (Estradiol III) [package insert V 3.0 Egyptian]. [facility], [place], [place], August 2015. Performed By: #### 1 5067-2, 2243-4 ####[facility] LABCLIA [id number] [place] [address] [place] FSH SerPl-aCncon 03-21-2024 Follitropin Qn 27.7 m[IU]/mL Normal See comment [facility] Comment on above: Order Comment: Speci men Type: BLOOD SPECIMENOrdering Facility: [facility] Address: [address] [place] [address] Result Comment: Refe rence range: Follicular: 3.5-12.5 mIU/mL Ovulation: 4.7-21.5 mIU/mL Luteal: 1.7-7.7 mIU/mL Postmenopausal: 25.8-134.8 mIU/mL Performed By: #### 1 5067-2, 2243-4 ####[facility] LABCLIA [id number] [address] [address] [place] Urgent Care Visit Reporton 1 04-27-2023 Urgent Care Visit Report [facility] [address] [facility] [address], [address] [place] [address] OFFICE VISIT Date of Service: 02/25/24 MR#: [id number] Acct: [id number] Name: OLGA LIDIA TELLO Rep #: [id number] : 1970 Provider: HETAL Holland Age/Sex: 53/F Location: [facility] Status: Signed Intake Vital Signs 01/27/24 12:04 02/25/24 10:49 Height 5 ft 10 in 5 ft 10 in Weight: 245 lb 245 lb BMI 35.2 35.2 BP 126/72 H 110/74 Blood Pressure Location Lt brachial Lt brachial Position Sitting Sitting Respiration 16 16 Pulse 78 66 Pulse Source Monitor Monitor Temp 98.2 F 98.5 F Temp Source Oral Oral Pulse Oximetry (%) 96 97 Oxygen Delivery Method room air room air Intake Visit Reasons: HEADACHE, EAR PAIN Chief Complaint: roberts ear pain Telehealth Nurse Educator Required: No Accompanied by: Self Is patient in pain?: No Allergies povidone-iodine (From Betadine) Allergy (Verified 02/25/24 10:51) Hives soap (From Betadine) Allergy (Verified 02/25/24 10:51) Hives Medications ???Medication ???Instructions ???Recorded ???Confirmed ???Type duloxetine 60 mg capsule,delayed 60 mg PO DAILY 01/10/15 02/25/24 History release calcium phosphate,dibasic 77 tab PO 07/24/22 02/25/24 History mg-vitamin D3 400 unit tablet gabapentin 800 mg tablet 800 mg PO BID 07/24/22 02/25/24 History ibuprofen 400 mg tablet 800 mg PO Q12H PRN PRN Headache 07/24/22 02/25/24 History iron 50 mg iron tablet tab PO 07/24/22 02/25/24 History magnesium 250 mg tablet 250 mg PO DAILY 07/24/22 02/25/24 History metformin 500 mg tablet 1,000 mg PO BID 07/24/22 02/25/24 History PFSH Medical History Contusion of left shoulder Left shoulder strain Callus of toe Foot deformity Neuropathy of both feet Social History Smoking Status: Never smoker HPI HPI Chief Complaint: roberts ear pain Details: OLGA LIDIA TELLO, is a 53 F who presents to the office today for complaint of sinus congestion/pressure and pain as well as headache and right ear pain. Patient states this has been ongoing for the past week. She denies fever, chills, sweats. No nausea, vomiting or diarrhea. No hemoptysis, shortness of breath or difficulty breathing. No loss of taste or smell. No other associated symptoms or alleviating/aggravating factors. ROS Const Constitutional: No other (As above) Exam Const General: cooperative and healthy appearing [facility] Head: normal to inspection Ears: hearing grossly normal bilaterally, TM's normal bilaterally and EAC abnormal erythema on the right, edema on the right and EAC tenderness on the right Nose: nasal discharge purulent Face and sinus: sinus tenderness frontal and maxillary Mouth: oral mucosae normal Throat: abnormal tonsil bilaterally erythema and hypertrophy 1+ and postnasal drainage Resp Effort Inspection: normal respiratory effort Auscultation: Bilateral: Clear to Auscultation Cardio Palpation: normal PMI Rate: regular rate Rhythm: regular rhythm Neuro General: patient alert and CN's II-XI intact bilaterally Psych Appearance: grossly normal Mental Status: mental status grossly normal Coding Level of Care Code Off vis,new,level 3 Diagnoses Acute sinusitis J01.90 Assessment and Plan Assessment and Plan (1) Acute sinusitis: Status: Acute Plan Augmentin as prescribed today. Encouraged to get plenty of rest, drink lots of clear liquids, and use Tylenol or Ibuprofen (unless contraindicated) for fever and comfort. Patient also educated on other symptomatic management techniques. To be seen in 7-10 days if no improvement; sooner if worsening of symptoms. Patient advised of potential red flags and when appropriate to report to the ED. Patient verbalized understanding and agreement with all the above. 02/25/24 1359 Date Semaj Corbin Signature: Date (if applicable) CC: Normal [facility] CNOVon 02-09-2024 CNOV Normal [facility] CNOVon 02-05-2024 CNOV Normal [facility] HISTORY PHYSICALon HISTORY PHYSICAL HNO ID: [id number] Author: EDGAR MONTEJO MD Service: Pain Management Author Type: Physician Type: H&P Filed: 01/07/2024 12:48 Note Text: HISTORY AND PHYSICAL EXAMINATION PATIENT NAME: Olga Lidia Tello DATE of SERVICE: 01/07/2024 Olga Lidia Tello is here for the pain mangement procedure. The patients presents with persistent pain complaints. Olga Lidia Tello denies any interval changes or new pain complaints or focal neurologic deficits. 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 Palencia will check MRA in 2012 Anxiety and depression Benign paroxysmal positional vertigo not an issue since 2006 Cataract Chronic cholecystitis 2008 Diabetes ([facility]) 2009 Dizziness and giddiness Elevated AST (SGOT) 10/16/2011 Esophageal reflux Excessive or frequent menstruation 06/19/2008 Family history of cardiac disorder in mother 12/23/2013 Fibromyalgia Hallux valgus (acquired) 01/12/2006 Hx-TIA (transient ischemic attack) January 2012 [place] Insomnia Mixed hyperlipidemia 03/19/2006 Resolved Morbid obesity with BMI of 40.0-44.9, adult ([facility]) 09/12/2014 Myalgia and myositis, unspecified Neuropathy Dr. Schmidt managing [place] (obstructive sleep apnea) non compliant with CPAP Other enthesopathy of ankle and tarsus 01/12/2006 Other osteoporosis Restless leg syndrome 08/16/2015 Dr. Schmidt managing Retinal detachment 08/17/2015 Stage 3 chronic kidney disease ([facility]) 07/15/2022 Ulnar neuropathy of right upper extremity PAST SURGICAL HISTORY Procedure Laterality Date CATARACT EXTRACTION HX Right 05/2015 COLONOSCOPY 09/15/2022 COLONOSCOPY FLX DX W/COLLJ SPEC WHEN PFRMD 08/22/2015 Colonoscopy (MAC) COLONOSCOPY SCREENING 2021 EGD 09/15/2022 EGD W/O [facility] SPEC VARICIES INJ 2021 ENDOMETRIAL BX W/WO ENDOCERVIX BX W/O DILAT SPX 06/01/2008 Irregular Menses, Menorrhagia and Thickened Lining ESOPHAGOGASTRODUODENOSCOPY TRANSORAL DIAGNOSTIC 08/22/2015 EGD (MAC) INCISE FINGER TENDON SHEATH Right 07/09/2023 right middle and ring trigger release. INCISE FINGER TENDON SHEATH Right 07/09/2023 Right middle and ring trigger finger releases INSERTION OF IUD 07/2017 LAPAROSCOPY SURG CHOLECYSTECTOMY 08/19/2007 NEUROPLASTY AND/TRANSPOSITION ULNAR NERVE ELBOW Right 11/27/2023 Right elbow ulnar nerve decompression PAST SURGICAL HISTORY OF x 4 PAST SURGICAL HISTORY OF 2022 foot surgery, multiple bilat PAST SURGICAL HISTORY OF bilateral ankle fractures PAST SURGICAL HISTORY OF 06/30/2014 right 2nd toe arthroplasty with tenotomies 3rd, 4th, and 5th toe - [facility]- Dr. Conteh PAST SURGICAL HISTORY OF Right 04/2015 retinal tear PAST SURGICAL HISTORY OF Right right knee surgery TONSILLECTOMY AND ADENOIDECTOMY Social History Tobacco Use Smoking status: Never Smokeless tobacco: Never Vaping Use Vaping status: Never Used Substance Use Topics Alcohol use: Not Currently Drug use: No FAMILY HISTORY Problem Relation Age of Onset Heart Mother other (fibroids) Mother Heart Father Arthritis Father Colon Cancer Father diagnosed at 74yo; has colostomy Alzheimer's Disease Father Psychiatry Maternal Grandmother Suicide Cancer Paternal Grandmother Breast Cancer Paternal Aunt Brain Cancer Paternal Aunt Uterine cancer ALLERGIES No Known Allergies Current Facility-Administered Medications Medication Dose Route Frequency NaCl 0.9% iv infusion 30 mL/hr INTRAVENOUS CONTINUOUS Physical Exam: Performed in conjunction with observation. The patient is alert and oriented x3. The patient is in no acute distress. Neck: Supple. The range of motion is intact. Lungs: clear CVR: RRR. Extremities: no reported edema or erythema. Examination indicates no changes Impression: Cervical radiculopathy Plan: The informed consent has been obtained. The plan is to proceed with the procedure as planned. SIGNATURE: Edgar Montejo MD DATE: January 07, 2024 TIME: 12:48 PM [facility] OPERATIVE NOon 01-07-2024 OPERATIVE NO HNO ID: [id number] Author: EDGAR MONTEJO MD Service: Pain Management Author Type: Physician Type: Operative Report Filed: 01/07/2024 13:22 Note Text: PATIENT NAME: Olga Lidia Tello SERVICE DATE: 01/07/2024 PROCEDURE NOTE PREOPERATIVE DIAGNOSIS(ES) Cervical DDD Cervical spondylosis Cervical disc displacement Cervical radiculopathy POSTOPERATIVE DIAGNOSIS(ES): SAME PROCEDURE: C6-7 interlaminar cervical epidural steroid injection under fluoroscopy. Auto Roller(s): None, I performed the entire procedure. ANESTHESIA: Local SEDATION: Moderate Sedation; midazolam 3mg IV, ASA status II, normal airway, chest excursion and heart rate. Airway reassessed immediately prior to medication administration, and IV sedation was administered incrementally to allow the patient to remain comfortable and conversant throughout the procedure. Sedation Start Time: 1:13 PM Sedation End Time: 1:21 PM INDICATIONS: The patient presents for cervical epidural steroid injection. Since the last assessment, the patient denies any new pain complaints and denies any focal neurologic deficits. The plan is to proceed with cervical intralaminar epidural steroid injection. The risks and benefits of the procedure were discussed. Specifically, the risks of bleeding, infection, inadvertent dural puncture, spinal heaches, vasovagal reaction, epidural hematoma, partial or permanent nerve injury were covered. The potential side effects of medications used in procedures including increase in pain, headaches, facial redness or warmth (flushing), anxiety or mood swings, sleeplessness, fever, high blood sugar, brief reduction in immunity were discussed. The patient expressed understanding of potential risks and wishes to proceed with the procedure. PROCEDURE NOTE: The patient was brought to the operating room procedure suite. The patient was positioned prone on the fluoroscopy table. Continuous hemodynamic monitoring was initiated including blood pressure, EKG, and pulse oximetry. Supplemental oxygen per nasal canula was started. The intravenous medication was administered incrementally to provide conscious sedation and to allow the patient to remain comfortable and conversant throughout the procedure. The posterior cervical area was prepped in sterile fashion. Upon AP and Lateral projection under fluoroscopy, C6-7 level was identified. Entry point was marked and anesthetized with 5ml of 0.5% Lidocaine. This was followed by insertion of an 18-gauge epidural Tuohy needle, which was inserted and advanced using a loss of resistance technique. Once the epidural space was encountered, aspiration was performed which was negative for blood or CSF. This was followed by injection of Omnipaque 300, a total of 0.25 ml, which revealed a spread along the posterior epidural space. There was no evidence of intravascular or intrathecal flow. This was then followed by a total injection of 1 mL of 0.5% Xylocaine with 40 mg of Depomerol mixture. The patient tolerated the procedure well. The needle was removed intact. Dry dressing was placed over the injection site. The patient was taken to the recovery room in stable condition. EBL: nil I was present the entire time and personally performed the procedure. SIGNATURE: Edgar Montejo MD DATE: January 07, 2024 TIME: 1:22 PM [facility] MR Cervical spine WO delilah ronnell 12-03-2023 IMPRESSION: Multilevel degenerative changes without substantial canal stenosis or evidence of spinal cord signal abnormality. Varying degrees of degenerative foraminal stenosis, most pronounced and moderate bilaterally at C4-C5. Anatomic Variant: None. Assume 7 cervical vertebrae with counting from the craniocervical junction. Magnesium Mill Operator: Decalog Transcribe Date/Time: Dec 03 2023 9:26A Dictated by : JOSE E CORNELL MD This examination was interpreted and the report reviewed and electronically signed by: JOSE E CORNELL MD on Dec 03 2023 9:31AM [facility] DIVISION OF RADIOLOGY * * *Final Report* * * DATE OF EXAM: Dec 03 2023 8:32AM [facility] 0297 - MRI CERVICAL SPINE WO IVCON / PROCEDURE REASON: multiple diagnoses * * * * Physician Interpretation * * * * EXAMINATION: MRI CERVICAL SPINE WO IVCON CLINICAL HISTORY: Spinal stenosis of cervical region Osteoarthritis of spine with radiculopathy, cervical region TECHNIQUE: Routine cervical spine MR protocol without gadolinium. MQ: [id number] COMPARISON: Cervical spine radiographs 05/04/2023 RESULT: Counting reference: Craniocervical junction. Anatomic Variants: None. Localizer images: No additional findings. Alignment: Dextrocurvature in the midthoracic spine. Mild degenerative anterolisthesis of C5 on C6 and C6 and C7. Craniocervical junction: Craniocervical junction is normal. Cord: No evidence of spinal cord signal abnormality. Bone marrow signal/fracture: Multifocal degenerative marrow signal changes without focal aggressive marrow replacing lesion identified to suggest malignancy. No evidence of prior fracture. Cervical soft tissues: The paraspinal soft tissues are within normal limits. C2-C3: Mild degenerative disc disease as well as moderate right and mild left degenerative facet disease without substantial canal or foraminal stenosis. C3-C4: Mild degenerative disc disease with small posterior disc osteophyte complex, bilateral uncovertebral spurring, as well as mild degenerative facet disease resulting in mild left and cglz-tn-tyqybdkz right foraminal stenosis. No substantial canal stenosis. C4-C5: Mild to moderate degenerative disc disease with posterior disc osteophyte complex, bilateral uncovertebral spurring, as well as mild degenerative facet disease resulting in moderate bilateral foraminal stenosis and mild canal stenosis C5-C6: Mild degenerative disc disease with left eccentric posterior disc osteophyte complex, mild uncovertebral spurring, and mild degenerative facet disease resulting in mild canal stenosis as well as mild bilateral foraminal stenosis. C6-C7: Mild degenerative disc and facet disease without substantial canal or foraminal stenosis. C7-T1: Moderate degenerative disc disease with posterior disc osteophyte complex, bilateral uncovertebral spurring, and mild to moderate bilateral degenerative facet disease resulting in mild to moderate bilateral foraminal stenosis and mild canal stenosis. DIVISION OF RADIOLOGY Provider, [facility] - 12/03/2023 * * *Final Report* * * DATE OF EXAM: Dec 03 2023 8:32AM [facility] 0297 - MRI CERVICAL SPINE WO IVCON / PROCEDURE REASON: multiple diagnoses * * * * Physician Interpretation * * * * EXAMINATION: MRI CERVICAL SPINE WO IVCON CLINICAL HISTORY: Spinal stenosis of cervical region Osteoarthritis of spine with radiculopathy, cervical region TECHNIQUE: Routine cervical spine MR protocol without gadolinium. MQ: [id number] COMPARISON: Cervical spine radiographs 05/04/2023 RESULT: Counting reference: Craniocervical junction. Anatomic Variants: None. Localizer images: No additional findings. Alignment: Dextrocurvature in the midthoracic spine. Mild degenerative anterolisthesis of C5 on C6 and C6 and C7. Craniocervical junction: Craniocervical junction is normal. Cord: No evidence of spinal cord signal abnormality. Bone marrow signal/fracture: Multifocal degenerative marrow signal changes without focal aggressive marrow replacing lesion identified to suggest malignancy. No evidence of prior fracture. Cervical soft tissues: The paraspinal soft tissues are within normal limits. C2-C3: Mild degenerative disc disease as well as moderate right and mild left degenerative facet disease without substantial canal or foraminal stenosis. C3-C4: Mild degenerative disc disease with small posterior disc osteophyte complex, bilateral uncovertebral spurring, as well as mild degenerative facet disease resulting in mild left and wzfr-jc-gebaaeja right foraminal stenosis. No substantial canal stenosis. C4-C5: Mild to moderate degenerative disc disease with posterior disc osteophyte complex, bilateral uncovertebral spurring, as well as mild degenerative facet disease resulting in moderate bilateral foraminal stenosis and mild canal stenosis C5-C6: Mild degenerative disc disease with left eccentric posterior disc osteophyte complex, mild uncovertebral spurring, and mild degenerative facet disease resulting in mild canal stenosis as well as mild bilateral foraminal stenosis. C6-C7: Mild degenerative disc and facet disease without substantial canal or foraminal stenosis. C7-T1: Moderate degenerative disc disease with posterior disc osteophyte complex, bilateral uncovertebral spurring, and mild to moderate bilateral degenerative facet disease resulting in mild to moderate bilateral foraminal stenosis and mild canal stenosis. IMPRESSION IMPRESSION: Multilevel degenerative changes without substantial canal stenosis or evidence of spinal cord signal abnormality. Varying degrees of degenerative foraminal stenosis, most pronounced and moderate bilaterally at C4-C5. Anatomic Variant: None. Assume 7 cervical vertebrae with counting from the craniocervical junction. Magnesium Mill Operator: TIFFANIE Transcribe Date/Time: Dec 03 2023 9:26A Dictated by : JOSE E CORNELL MD This examination was interpreted and the report reviewed and electronically signed by: JOSE E CORNELL MD on Dec 03 2023 9:31AM EST [facility] Radiology Study observation (narrative) [facility] MR Cervical spine WO contras tOrdered By: [facility] Provider on 12-03-2023 [facility] ANES POSTPROC EVALon 024 ANES POSTPROC EVAL HNO ID: [id number] Author: MAMADOU VELEZ DO Service: Anesthesiology Author Type: Anesthesiologist Type: Anesthesia Postprocedure Evaluation Filed: 11/27/2023 13:24 Note Text: POST ANESTHESIA EVALUATION NOTE : 1970 Procedure Summary Date: 11/27/23 Room / Location: [place] [address] / [place] Anesthesia Start: 928 Anesthesia Stop: 1038 Procedure: DECOMPRESSION NERVE ULNAR ELBOW (Right: Elbow) Diagnosis: Ulnar neuropathy of right upper extremity (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]) Surgeons: Brendan Flor MD Responsible Provider: Mamadou Velez DO Anesthesia Type: MAC ASA Status: 3 Anesthesia Type: MAC Last Vitals Vitals Value Taken Time BP 135/88 11/27/23 1126 Temp 36.5 ?C (97.7 ?F) 11/27/23 1039 HR SpO2 60 11/27/23 1126 Resp 8 11/27/23 1109 SpO2 99 % 11/27/23 1126 Vitals shown include unfiled device data. Post Anesthesia Patient Status Patient Evaluation: PACU. PACU/ICU Patient Condition: stable. Anticipated Disposition: phase 2 then home. Neurological Status: aware and responsive. Pulmonary Status: breathing comfortably on room air Airway Control: returned to baseline unsupported. Cardiovascular Status: stable. Pain Management: clinically adequate - multimodal analgesia pain management approach Postoperative Hydration: acceptable. Intraoperative Events: no significant anesthesia events Post Operative Nausea/Vomiting Status: no significant post operative nausea or vomiting Recommendation: continue current plan of care and further care per PACU/ICU/floor team. Anesthesia Observations No Documentation SIGNATURE: Mamadou Velez DO PATIENT NAME: Olga Lidia Telol DATE: November 27, 2023 TIME: 1:24 PM CSN: [id number] [facility] ANES PRE-OPon 11-27-2023 ANES PRE-OP HNO ID: [id number] Author: MAMADOU VELEZ DO Service: Anesthesiology Author Type: Anesthesiologist Type: Anesthesia Preprocedure Evaluation Filed: 11/27/2023 08:05 Note Text: ANESTHESIOLOGY DAY OF SURGERY NOTE : 1970 Procedure Information Date/Time: 11/27/2349 Procedure: DECOMPRESSION NERVE ULNAR ELBOW (Right: Elbow) Location: [place] [address] / [place] Surgeons: Brendan Flor MD Estimated body mass index is 35.01 kg/m? as calculated from the following: Height as of this encounter: 177.8 cm (5' 10). Weight as of this encounter: 110.7 kg (244 lb). Most recent hematocrit and potassium results: Hematocrit 49.0 11/17/2023 Potassium 4.5 11/17/2023 Relevant Problems No relevant active problems I - PHYSICAL EVALUATION AIRWAY Patient intubated: No. Tracheostomy tube not present Mallampati: II. TM distance: >3 FB. Neck ROM: full ROM without neurological symptoms. Mouth opening: adequate. Short neck: no. Thick neck: no DENTAL Dental findings: edentulous. Additional exam findings: yes. CARDIOVASCULAR Rhythm: regular Rate: normal PULMONARY Breath sounds clear to auscultation. II - ANESTHESIA PLAN ASA Score: 3 Anesthetic Plan: MAC NPO Status: adequate Beta Jarek Monitoring Plan Monitoring plan: standard ASA. Post Procedure Analgesic Plan Postoperative analgesic plan: parenteral or oral opioids and per surgical service. Informed Consent Anesthetic risks, benefits, alternatives, personnel and consent discussed: yes. Patient / Responsible [employer] Party agrees to proceed: yes Patient / Surrogate agrees to blood products: Yes DNR status not reviewed with patient and/or family prior to surgery. Significant changes in the patient condition since the History and Physical, not otherwise documented in primary service progress note: no. Potential Anesthesia issues that may suggest increased risk of complications or contraindication to planned procedure: none. Vitals Value Taken Time BP 138/86 11/27/23 0744 Pulse 73 11/27/23 0744 Resp 18 11/27/23 0744 Temp 36 ?C (96.8 ?F) 11/27/23 0744 SpO2 98 % 11/27/23 0744 Facility-Administered Medications as of 11/27/2023 Medication Dose Route Frequency lidocaine (PF) 10 mg/mL (1 %) 1-2 mg injection (XYLOCAINE) 0.1-0.2 mL INTRADERMAL PRN lactated ringers iv infusion 5-30 mL/hr INTRAVENOUS CONTINUOUS NaCl 0.9% iv flush bag 20 mL INTRAVENOUS PRN acetaminophen 1,000 mg tab(s) (TYLENOL) 1,000 mg ORAL Pre-Op Once promethazine 12.5 mg tab(s) (PHENERGAN) 12.5 mg ORAL Pre-Op Once Outpatient Medications as of 11/27/2023 Medication Sig omeprazole (PRILOSEC) 40 mg capsule Take 1 capsule by mouth once daily. cholecalciferol, Vitamin D3, (VITAMIN D3) 1,250 mcg (50,000 unit) cap capsule Take 1 capsule by mouth one time a week. Lancing Device (LANCING DEVICE WITH LANCETS) [facility] [place] blood sugar once daily Lancets lancets Test blood sugar(s) once daily. Dx: E11.9. New onset type 2 diabetes Insulin: No I have interviewed and examined the patient. I have reviewed the medical record and/or the pre-anesthesia evaluation, pertinent labs, and test results. This contains updated information obtained within 48 hours of Surgery/Procedure. SIGNATURE: Mamadou Velez DO PATIENT NAME: Olga Lidia Tello DATE: November 27, 2023 TIME: 8:02 AM CSN: [id number] [facility] NURSING PROGon 11-27-2023 NURSING PROG HNO ID: [id number] Author: SUN RHOADES, TOYIN Service: Nursing Author Type: Registered Nurse Type: Nursing Progress Note Filed: 11/27/2023 07:50 Note Text: Other: pt ready for OR, call light in reach, no one here at this time, daughter will be arriving later this morning [facility] OPERATIVE NOon 11-27-2023 OPERATIVE NO HNO ID: [id number] Author: BRENDAN FLOR MD Service: Orthopaedic Surgery Author Type: Physician Type: Operative Report Filed: 11/27/2023 10:32 Note Text: OPERATIVE/PROCEDURE REPORT LOG ID: [id number] SURGERY/PROCEDURE DATE: 11/27/2023 INCISION/PROCEDURE START TIME: 9:53 AM INCISION CLOSE/PROCEDURE END TIME: 10:27 AM SURGEON(S)/PROCEDURALIST(S ) AND NIGHT WAREHOUSE SELECTOR(S): Surgeons and Role: * Brendan Flor MD - Primary Physician Auto Roller: Riddhi Rivera PA-C SURGERY/PROCEDURE(S): right, ulnar nerve decompression, in situ. ANESTHESIA: General with local. SURGERY/PROCEDURE DETAILS: This is a pleasant, ntuny-kuvc-ecbgjsvz, 53-year-old female who was seen in the office and found to have ulnar neuropathy localized to the right elbow, with moderate findings superimposed with peripheral, diabetic neuorpathy. We reviewed the risks, benefits, alternatives and potential complications involving both operative and nonoperative care. Pt understood and wished to pursue surgery. On 11/27/2023, the patient was clearly identified in the preoperative area marked accordingly on the affected elbow. We gave her 2g ancef due to a bit of higher infection risk, despite her better DM control. Pt was taken the operative suite placed in supine position. Anesthesia assumed care of the head and neck for the remainder of the case. All other bony landmarks were appropriately padded in standard fashion. The upper extremity was first sterilely prepped and draped in standard fashion. An appropriate timeout was conducted and all in the room were in agreement, signed consent form was on the chart. The upper extremity was exsanguinated a pneumatic tourniquet was applied at 250mmHg. A small incision was made over the medial epicondyle 2 cm proximal and distal. I bluntly dissected down to the fascia overlying the cubital tunnel and work my way both proximally and distally at the level of the fascia. Meticulous dissection was used with careful nerve handling technique the Altamirano's fascia was released at the cubital tunnel and I moved my way distally, freeing up the nerve and releasing it distally at the level of its insertion underneath the fascia of the flexor carpi ulnaris, until the first motor branch was identified. There was significant constriction near the cubital tunnel and to a lessor degree as it entered the FCU. Next, I then worked my way proximally and released about 5 cm proximal to the medial epicondyle. The intermuscular septum was not a point of constriction or tether. At this time I took the elbow through full range of motion with flexion and extension and there was no subluxation of the nerve. The wound was copiously irrigated and the tourniquet was taken down. Hemostasis was observed with bipolar electrocautery. The skin was closely approximated with buried, interrupted 3-0 Monocryl sutures. Final skin closure was completed with a 4-0 subcuticular weave with the tails of the ends, Steri-Strips there. Sterile 4 x 4's, and ABD, padding with a light Nabeel wrap and Aayush bandages. There were no complications during the procedure. Patient was safely awoken and transferred to the postanesthetic care unit in stable condition. PRE-OP/PRE-PROCEDURE DIAGNOSIS: Right elbow, ulnar neuropathy POST-OP/POST-PROCEDURE DIAGNOSIS: Same as Preop ESTIMATED BLOOD LOSS: 20 mls SPECIMENS: None IMPLANTABLE DEVICES: None DRAINS: None COMPLICATIONS: None PARTICIPATION IN SURGERY/PROCEDURE: I/primary surgeon/proceduralist performed the procedure with assistance. No qualified resident/fellow was available. assistant project engineer was necessary for safe patient positioning, sterile prepping and draping. arm assistance, positioning and protection, soft tissue retraction, protection of vital structures and suture management during the case. Final skin closure, splint and aayush application and safe to the recovery room in stable condition. Patient was accompanied to the next level of care by a licensed practitioner from the surgical team pending completion of this brief op note (or operative note) SIGNATURE: Brendan Flor MD PATIENT NAME: Olga Lidia Tello DATE: November 27, 2023 TIME: 10:30 AM Normal [facility] UA DIP, URINE (POC)on 2023 BILIRUBIN UA (POCT) Negative Negative [facility] CLARITY UA (POCT) Clear [facility] COLOR UA (POCT) Yellow [facility] GLUCOSE UA (POCT) Negative Negative mg/dL [facility] Hemoglobin Ql (U) Negative Negative [facility] KETONE UA (POCT) Negative Negative mg/dL [facility] LEUKOCYTES UA (POCT) Negative Negative [facility] NITRITE UA (POCT) Negative Negative [facility] PH UA (POCT) 6.0 4.5 - 8.0 [facility] Protein Ql (U) Negative Negative mg/dL [facility] SPECIFIC GRAVITY UA (POCT) 1.015 1.005 - 1.030 [facility] UROBILINOGEN UA (POCT) 0.2 Normal E.U./dL [facility] Location:[facility], [address], [place], [id number] [place] [address] POINT OF CARE [facility] CBC W Auto Differential pane l (Bld)on 11-17-2023 Basophils (Bld) [#/Vol] 0.06 10*3/uL [facility] Basophils/100 WBC (Bld) 0.8 % [facility] Differential cell count method Nom (Bld) Auto [facility] Eosinophils (Bld) [#/Vol] 0.16 10*3/uL [facility] Eosinophils/100 WBC (Bld) 2.1 % [facility] Erythrocyte distribution width (RBC) [Ratio] 14.3 % 11.5 - 15.0 % [facility] Hematocrit (Bld) [Volume fraction] 49.0 % High 36.0 - 46.0 % [facility] Hemoglobin (Bld) [Mass/Vol] 15.7 g/dL High 11.5 - 15.5 g/dL [facility] Immature granulocytes (Bld) [#/Vol] NINF [facility] Immature granulocytes/100 WBC (Bld) 0.3 % [facility] Interpretation and review of laboratory results Abnormal [facility] Lymphocytes (Bld) [#/Vol] 2.85 10*3/uL [facility] Lymphocytes/100 WBC (Bld) 37.0 % [facility] MCH (RBC) [Entitic mass] 28.9 pg 26.0 - 34.0 pg [facility] MCHC (RBC) [Mass/Vol] 32.0 g/dL 30.5 - 36.0 g/dL [facility] MCV (RBC) [Entitic vol] 90.2 fL 80.0 - 100.0 fL [facility] Monocytes (Bld) [#/Vol] 0.45 10*3/uL [facility] Monocytes/100 WBC (Bld) 5.8 % [facility] Neutrophils (Bld) [#/Vol] 4.16 10*3/uL [facility] Neutrophils/100 WBC (Bld) 54.0 % [facility] Nucleated RBC (Bld) [#/Vol] NINF [facility] Nucleated RBC/100 WBC (Bld) [Ratio] 0.0 % /100 WBC [facility] Platelet mean volume (Bld) [Entitic vol] 9.7 fL 9.0 - 12.7 fL [facility] Platelets (Bld) [#/Vol] 342 10*3/uL [facility] RBC (Bld) [#/Vol] 5.43 10*6/uL High 3.90 - 5.20 m/uL [facility] WBC (Bld) [#/Vol] 7.70 10*3/uL [facility] PT EDon 11-16-2023 PT ED HNO ID: [id number] Author: BILL FELICIANO PA-C Service: General Surgery Author Type: Physician Auto Roller Type: Patient Education Filed: 11/16/2023 14:13 Note Text: Olga Lidia Tello's medication list was reviewed and patient was noted to be taking Ozempic per patient chart. PAT note from 8/15/24 reviewed--discussed that the patient hold their medication 7 day(s) prior to their date of surgery (11/27/2023). SIGNATURE: Bill Feliciano PA-C PATIENT NAME: Olga Lidia Tello DATE: November 16, 2023 Normal [facility] EMG(NEURO/NI)on 10-16-2023 Results can be seen in attached scanned documents. If you are a patient reviewing this test result, call the doctor who ordered the test with any questions. NEUROLOGICAL [facility] XR Lumbar spine 3 Viewson IMPRESSION: Advanced lumbar spine degenerative changes with multilevel disc space narrowing. Magnesium Mill Operator: TIFFANIE Transcribe Date/Time: Oct 12 2023 8:22A Dictated by : TIFFANI ROBBINS MD This examination was interpreted and the report reviewed and electronically signed by: TIFFANI ROBBISN MD on Oct 12 2023 8:25AM [facility] DIVISION OF RADIOLOGY * * *Final Report* * * DATE OF EXAM: Oct 09 2023 4:58PM WOX [id number] - XR LUMBAR 3V AP/LAT/L5-S1 / PROCEDURE REASON: multiple diagnoses * * * * Physician Interpretation * * * * EXAM TITLE: XR LUMBAR 3V AP/LAT/L5-S1 EXAM DATE/TIME: 10/09/2023 4:58 PM COMPARISON: X-ray lumbar spine on 02/05/2023 CLINICAL INDICATION/HISTORY: Pain TECHNIQUE: AP, lateral and cone down lateral views of the lumbar spine are presented. FINDINGS: There are five xct-exb-dwnmkox lumbar vertebrae. No fracture or subluxations are noted. There is straightening/slight reversal of the lumbar spine curvature. Dextroscoliosis is demonstrated. There is generalized disc space narrowing. There is moderate osteophyte formation. Kissing spine seen on lateral view. DIVISION OF RADIOLOGY Provider, [facility] - 10/12/2023 * * *Final Report* * * DATE OF EXAM: Oct 09 2023 4:58PM WOX [id number] - XR LUMBAR 3V AP/LAT/L5-S1 / PROCEDURE REASON: multiple diagnoses * * * * Physician Interpretation * * * * EXAM TITLE: XR LUMBAR 3V AP/LAT/L5-S1 EXAM DATE/TIME: 10/09/2023 4:58 PM COMPARISON: X-ray lumbar spine on 02/05/2023 CLINICAL INDICATION/HISTORY: Pain TECHNIQUE: AP, lateral and cone down lateral views of the lumbar spine are presented. FINDINGS: There are five epf-jks-malakhx lumbar vertebrae. No fracture or subluxations are noted. There is straightening/slight reversal of the lumbar spine curvature. Dextroscoliosis is demonstrated. There is generalized disc space narrowing. There is moderate osteophyte formation. Kissing spine seen on lateral view. IMPRESSION IMPRESSION: Advanced lumbar spine degenerative changes with multilevel disc space narrowing. Magnesium Mill Operator: [facility] Transcribe Date/Time: Oct 12 2023 8:22A Dictated by : TIFFANI ROBBINS MD This examination was interpreted and the report reviewed and electronically signed by: TIFFANI ROBBINS MD on Oct 12 2023 8:25AM EST [facility] XR Pelvis and Hip - left AP and Lateral frogon 10-10-2023 IMPRESSION: No acute osseous abnormality. Magnesium Mill Operator: [facility] [facility] Transcribe Date/Time: Oct 10 2023 10:04A Dictated by : ELIUD SOUZA DO This examination was interpreted and the report reviewed and electronically signed by: ELIUD SOUZA DO on Oct 10 2023 10:06AM [facility] DIVISION OF RADIOLOGY * * *Final Report* * * DATE OF EXAM: Oct 09 2023 4:58PM WOX [id number] - XR HIP 3V PELV+ AP/LAT LT / PROCEDURE REASON: Skin sensation disturbance * * * * Physician Interpretation * * * * EXAMINATION: XR HIP 3V PELV+ AP/LAT LT PATIENT/TECHNOLOGIST PROVIDED HISTORY: Acute low back and left hip pain with numbness down left leg. CLINICAL INFORMATION: 53 years old Female with Skin sensation disturbance TECHNIQUE: XR HIP 3V PELV+ AP/LAT LT Laterality: LEFT Number of different views (projections): 3 COMPARISON: None RESULT: No fracture. Hip joint spaces are maintained. Sacroiliac joints and pubic symphysis are within normal limits. Degenerative changes in the lumbar spine. Excessive colonic feces in the LEFT colon and rectosigmoid. DIVISION OF RADIOLOGY [facility] * * *Final Report* * * DATE OF EXAM: Oct 09 2023 4:58PM WOX [id number] - XR HIP 3V PELV+ AP/LAT LT / PROCEDURE REASON: Skin sensation disturbance * * * * Physician Interpretation * * * * EXAMINATION: XR HIP 3V PELV+ AP/LAT LT PATIENT/TECHNOLOGIST PROVIDED HISTORY: Acute low back and left hip pain with numbness down left leg. CLINICAL INFORMATION: 53 years old Female with Skin sensation disturbance TECHNIQUE: XR HIP 3V PELV+ AP/LAT LT Laterality: LEFT Number of different views (projections): 3 COMPARISON: None RESULT: No fracture. Hip joint spaces are maintained. Sacroiliac joints and pubic symphysis are within normal limits. Degenerative changes in the lumbar spine. Excessive colonic feces in the LEFT colon and rectosigmoid. IMPRESSION IMPRESSION: No acute osseous abnormality. [employer] Operator: TIFFANIE Transcribe Date/Time: Oct 10 2023 10:04A Dictated by : ELIUD SOUZA DO This examination was interpreted and the report reviewed and electronically signed by: ELIUD SOUZA DO on Oct 10 2023 10:06AM EST [facility] XR Pelvis and Hip - left AP and Lateral frogOrdered By: Ccf Provider on 10-10-2023 [facility] No Panel Informationon 10-08 Radiology Study observation (narrative) [facility] US ELBOW RTon 09-16-2023 US ELBOW RT * * *Final Report* * * DATE OF EXAM: Sep 16 2023 11:40AM U 1134 - US ELBOW RT / PROCEDURE REASON: Lesion of right ulnar nerve * * * * Physician Interpretation * * * * RESULT: EXAMINATION / TECHNIQUE: US ELBOW RT HISTORY: Lesion of right ulnar nerve COMPARISON: None. RESULT: See impression IMPRESSION: The ulnar nerve is mildly enlarged and fasciculated within the cubital tunnel. Ulnar nerve dislocates out of the cubital tunnel during dynamic exam. Transcribed Using Voice Recognition Transcribe Date/Time: Sep 16 2023 11:51A Dictated by: BYRON CAMPOS MD This examination was interpreted and the report reviewed and electronically signed by: BYRON CAMPOS MD on Sep 16 2023 11:52AM EST [id number] [facility] US Upper extremity - righton 06-26-2024 IMPRESSION: The ulnar nerve is mildly enlarged and fasciculated within the cubital tunnel. Ulnar nerve dislocates out of the cubital tunnel during dynamic exam. Transcribed Using Voice Recognition Transcribe Date/Time: Sep 16 2023 11:51A Dictated by: BYRON CAMPOS MD This examination was interpreted and the report reviewed and electronically signed by: BYRON CAMPOS MD on Sep 16 2023 11:52AM EST [facility] RADIOLOGY * * *Final Report* * * DATE OF EXAM: Sep 16 2023 11:40AM U 1134 - US ELBOW RT / PROCEDURE REASON: Lesion of right ulnar nerve * * * * Physician Interpretation * * * * RESULT: EXAMINATION / TECHNIQUE: US ELBOW RT HISTORY: Lesion of right ulnar nerve COMPARISON: None. RESULT: See impression [facility] RADIOLOGY Provider, [facility] - 09/16/2023 * * *Final Report* * * DATE OF EXAM: Sep 16 2023 11:40AM [facility] 1134 - US ELBOW RT / PROCEDURE REASON: Lesion of right ulnar nerve * * * * Physician Interpretation * * * * RESULT: EXAMINATION / TECHNIQUE: US ELBOW RT HISTORY: Lesion of right ulnar nerve COMPARISON: None. RESULT: See impression IMPRESSION IMPRESSION: The ulnar nerve is mildly enlarged and fasciculated within the cubital tunnel. Ulnar nerve dislocates out of the cubital tunnel during dynamic exam. Transcribed Using Voice Recognition Transcribe Date/Time: Sep 16 2023 11:51A Dictated by: BYRON CAMPOS MD This examination was interpreted and the report reviewed and electronically signed by: BYRON CAMPOS MD on Sep 16 2023 11:52AM EST [facility] Radiology Study observation (narrative) [facility] US Upper extremity - rightOr dered By: Ccf Provider on 09-16-2023 [facility] No Panel Informationon 08-09 IMPRESSION: Postoperative and degenerative changes as described. [employer] Operator: PSCB Transcribe Date/Time: Aug 10 2023 7:14P Dictated by : ELIUD SOUZA DO This examination was interpreted and the report reviewed and electronically signed by: ELIUD SOUZA DO on Aug 10 2023 7:30PM [facility] DIVISION OF RADIOLOGY No Panel InformationOrdered By: Ccf Provider on 08-10-2023 [facility] XR Ankle - right AP and Late ral and obliqueon 08-10-2023 * * *Final Report* * * DATE OF EXAM: Aug 06 2023 12:06PM [id number] - XR ANKLE 3V AP/LAT/OBL RT / PROCEDURE REASON: Charcot ankle, right * * * * Physician Interpretation * * * * EXAMINATION: XR FOOT 3V AP/LAT/OBL BRIEN, XR ANKLE 3V AP/LAT/OBL RT PATIENT/TECHNOLOGIST PROVIDED HISTORY: PT STATES HISTORY OF CHARCOT. PT STATES HISTORY OF CHARCOT. BB MARKING AREA OF INTEREST . BB MARKING RIGHT FOOT PROTRUDING AREA. CLINICAL INFORMATION: 52 years old Female with Hammertoe of right foot. Charcot ankle, right. Patient has history of hammertoe and charcot on right foot Xrays for follow-up evaluation. Bb thibodeaux site of prominent bone vs screw, right ankle. TECHNIQUE: XR FOOT 3V AP/LAT/OBL BRIEN, XR ANKLE 3V AP/LAT/OBL RT Laterality: See below. Number of different views (projections): 3 views of each foot and 3 views of the RIGHT ankle. COMPARISON: Radiographs 05/04/2023, 04/02/2023, 11/17/2022 RESULT: Right ankle and foot: A BB marker is utilized to indicate the patient's reported site of abnormality. At the site of the BB marking the RIGHT ankle there is prominent bony hypertrophic changes as seen on the foot radiograph. Remote lateral plate and screw fixation of the distal fibula. Remote Chopart, subtalar and 1st TMT arthrodesis with solid bony fusion and unchanged appearance of the hardware. Remote healed fracture deformity of the great toe proximal phalanx with unchanged screw. Remote deformity 2nd proximal phalanx. Severe pes planus. Severe degenerative change tibiotalar joint with widening of the distal tibiofibular syndesmosis. Severe degenerative change naviculocuneiform joint, 2nd through 5th TMT joints and 1st MTP joint. Mild scattered degenerative changes at the interphalangeal joints. No acute fracture. Left foot: Partially visualized remote postsurgical changes of plate and screw fixation of the lateral malleolus, 2 screws within the medial malleolus and a single screw in the RIGHT proximal phalanx. Remote arthrodesis of the 1st TMT joint with solid bony fusion. No acute fracture. Pes planus. Mild scattered degenerative changes at the interphalangeal joints, midfoot and 1st MTP joint. Hammertoe deformities. Unchanged ossicles medial to the 1st metatarsal head. Posterior and plantar calcaneal spurs. DIVISION OF RADIOLOGY [facility] - 08/10/[facility]23 * * *Final Report* * * DATE OF EXAM: Aug 06 2023 12:06PM [id number] - XR ANKLE 3V AP/LAT/OBL RT / PROCEDURE REASON: Charcot ankle, right * * * * Physician Interpretation * * * * EXAMINATION: XR FOOT 3V AP/LAT/OBL BRIEN, XR ANKLE 3V AP/LAT/OBL RT PATIENT/TECHNOLOGIST PROVIDED HISTORY: PT STATES HISTORY OF CHARCOT. PT STATES HISTORY OF CHARCOT. BB MARKING AREA OF INTEREST . BB MARKING RIGHT FOOT PROTRUDING AREA. CLINICAL INFORMATION: 52 years old Female with Hammertoe of right foot. Charcot ankle, right. Patient has history of hammertoe and charcot on right foot Xrays for follow-up evaluation. Bb thibodeaux site of prominent bone vs screw, right ankle. TECHNIQUE: XR FOOT 3V AP/LAT/OBL BRIEN, XR ANKLE 3V AP/LAT/OBL RT Laterality: See below. Number of different views (projections): 3 views of each foot and 3 views of the RIGHT ankle. COMPARISON: Radiographs 05/04/2023, 04/02/2023, 11/17/2022 RESULT: Right ankle and foot: A BB marker is utilized to indicate the patient's reported site of abnormality. At the site of the BB marking the RIGHT ankle there is prominent bony hypertrophic changes as seen on the foot radiograph. Remote lateral plate and screw fixation of the distal fibula. Remote Chopart, subtalar and 1st TMT arthrodesis with solid bony fusion and unchanged appearance of the hardware. Remote healed fracture deformity of the great toe proximal phalanx with unchanged screw. Remote deformity 2nd proximal phalanx. Severe pes planus. Severe degenerative change tibiotalar joint with widening of the distal tibiofibular syndesmosis. Severe degenerative change naviculocuneiform joint, 2nd through 5th TMT joints and 1st MTP joint. Mild scattered degenerative changes at the interphalangeal joints. No acute fracture. Left foot: Partially visualized remote postsurgical changes of plate and screw fixation of the lateral malleolus, 2 screws within the medial malleolus and a single screw in the RIGHT proximal phalanx. Remote arthrodesis of the 1st TMT joint with solid bony fusion. No acute fracture. Pes planus. Mild scattered degenerative changes at the interphalangeal joints, midfoot and 1st MTP joint. Hammertoe deformities. Unchanged ossicles medial to the 1st metatarsal head. Posterior and plantar calcaneal spurs. IMPRESSION IMPRESSION: Postoperative and degenerative changes as described. [employer] Operator: PSCJamar Transcribe Date/Time: Aug 10 2023 7:14P Dictated by : ELIUD SOUZA DO This examination was interpreted and the report reviewed and electronically signed by: ELIUD SOUZA DO on Aug 10 2023 7:30PM [facility] XR Foot - bilateral AP and L ateral and obliqueon 08-10-2023 * * *Final Report* * * DATE OF EXAM: Aug 06 2023 12:04PM [id number] - XR FOOT 3V AP/LAT/OBL BRIEN / PROCEDURE REASON: multiple diagnoses * * * * Physician Interpretation * * * * EXAMINATION: XR FOOT 3V AP/LAT/OBL BRIEN, XR ANKLE 3V AP/LAT/OBL RT PATIENT/TECHNOLOGIST PROVIDED HISTORY: PT STATES HISTORY OF CHARCOT. PT STATES HISTORY OF CHARCOT. BB MARKING AREA OF INTEREST . BB MARKING RIGHT FOOT PROTRUDING AREA. CLINICAL INFORMATION: 52 years old Female with Hammertoe of right foot. Charcot ankle, right. Patient has history of hammertoe and charcot on right foot Xrays for follow-up evaluation. Bb thibodeaux site of prominent bone vs screw, right ankle. TECHNIQUE: XR FOOT 3V AP/LAT/OBL BRIEN, XR ANKLE 3V AP/LAT/OBL RT Laterality: See below. Number of different views (projections): 3 views of each foot and 3 views of the RIGHT ankle. COMPARISON: Radiographs 05/04/2023, 04/02/2023, 11/17/2022 RESULT: Right ankle and foot: A BB marker is utilized to indicate the patient's reported site of abnormality. At the site of the BB marking the RIGHT ankle there is prominent bony hypertrophic changes as seen on the foot radiograph. Remote lateral plate and screw fixation of the distal fibula. Remote Chopart, subtalar and 1st TMT arthrodesis with solid bony fusion and unchanged appearance of the hardware. Remote healed fracture deformity of the great toe proximal phalanx with unchanged screw. Remote deformity 2nd proximal phalanx. Severe pes planus. Severe degenerative change tibiotalar joint with widening of the distal tibiofibular syndesmosis. Severe degenerative change naviculocuneiform joint, 2nd through 5th TMT joints and 1st MTP joint. Mild scattered degenerative changes at the interphalangeal joints. No acute fracture. Left foot: Partially visualized remote postsurgical changes of plate and screw fixation of the lateral malleolus, 2 screws within the medial malleolus and a single screw in the RIGHT proximal phalanx. Remote arthrodesis of the 1st TMT joint with solid bony fusion. No acute fracture. Pes planus. Mild scattered degenerative changes at the interphalangeal joints, midfoot and 1st MTP joint. Hammertoe deformities. Unchanged ossicles medial to the 1st metatarsal head. Posterior and plantar calcaneal spurs. DIVISION OF RADIOLOGY Provider, [facility] - 08/10/2023 * * *Final Report* * * DATE OF EXAM: Aug 06 2023 12:04PM [id number] - XR FOOT 3V AP/LAT/OBL BRIEN / PROCEDURE REASON: multiple diagnoses * * * * Physician Interpretation * * * * EXAMINATION: XR FOOT 3V AP/LAT/OBL BRIEN, XR ANKLE 3V AP/LAT/OBL RT PATIENT/TECHNOLOGIST PROVIDED HISTORY: PT STATES HISTORY OF CHARCOT. PT STATES HISTORY OF CHARCOT. BB MARKING AREA OF INTEREST . BB MARKING RIGHT FOOT PROTRUDING AREA. CLINICAL INFORMATION: 52 years old Female with Hammertoe of right foot. Charcot ankle, right. Patient has history of hammertoe and charcot on right foot Xrays for follow-up evaluation. Bb thibodeaux site of prominent bone vs screw, right ankle. TECHNIQUE: XR FOOT 3V AP/LAT/OBL BRIEN, XR ANKLE 3V AP/LAT/OBL RT Laterality: See below. Number of different views (projections): 3 views of each foot and 3 views of the RIGHT ankle. COMPARISON: Radiographs 05/04/2023, 04/02/2023, 11/17/2022 RESULT: Right ankle and foot: A BB marker is utilized to indicate the patient's reported site of abnormality. At the site of the BB marking the RIGHT ankle there is prominent bony hypertrophic changes as seen on the foot radiograph. Remote lateral plate and screw fixation of the distal fibula. Remote Chopart, subtalar and 1st TMT arthrodesis with solid bony fusion and unchanged appearance of the hardware. Remote healed fracture deformity of the great toe proximal phalanx with unchanged screw. Remote deformity 2nd proximal phalanx. Severe pes planus. Severe degenerative change tibiotalar joint with widening of the distal tibiofibular syndesmosis. Severe degenerative change naviculocuneiform joint, 2nd through 5th TMT joints and 1st MTP joint. Mild scattered degenerative changes at the interphalangeal joints. No acute fracture. Left foot: Partially visualized remote postsurgical changes of plate and screw fixation of the lateral malleolus, 2 screws within the medial malleolus and a single screw in the RIGHT proximal phalanx. Remote arthrodesis of the 1st TMT joint with solid bony fusion. No acute fracture. Pes planus. Mild scattered degenerative changes at the interphalangeal joints, midfoot and 1st MTP joint. Hammertoe deformities. Unchanged ossicles medial to the 1st metatarsal head. Posterior and plantar calcaneal spurs. IMPRESSION IMPRESSION: Postoperative and degenerative changes as described. [employer] Operator: TIFFANIE Transcribe Date/Time: Aug 10 2023 7:14P Dictated by : ELIUD SOUZA DO This examination was interpreted and the report reviewed and electronically signed by: ELIUD SOUZA DO on Aug 10 2023 7:30PM EST [facility] No Panel Informationon 08-05 Radiology Study observation (narrative) [facility] XR Sacrum and Coccyx 3 Views on 07-07-2023 IMPRESSION: No acute osseous abnormality [employer] Operator: TIFFANIE Transcribe Date/Time: Jul 07 2023 11:21A Dictated by : LENNIE GONZALEZ MD This examination was interpreted and the report reviewed and electronically signed by: LENNIE GONZALEZ MD on Jul 07 2023 11:22AM [facility] DIVISION OF RADIOLOGY * * *Final Report* * * DATE OF EXAM: Jul 02 2023 2:30PM WOX [id number] - XR SACRUM/COCCYX 3V AP/LAT / PROCEDURE REASON: Fall, initial encounter * * * * Physician Interpretation * * * * EXAMINATION: XR SACRUM/COCCYX 3V AP/LAT CLINICAL HISTORY: Fall, pain in coccyx Technique: XR SACRUM/COCCYX 3V AP/LAT -- NOT APPLICABLE with 3 views on 3 images Comparison: X-ray lumbar spine 01/26/2023 RESULT: No acute fracture or malalignment. Degenerative disc disease of the lower lumbar spine. DIVISION OF RADIOLOGY Provider, [facility] - 07/07/2023 * * *Final Report* * * DATE OF EXAM: Jul 02 2023 2:30PM WOX [id number] - XR SACRUM/COCCYX 3V AP/LAT / PROCEDURE REASON: Fall, initial encounter * * * * Physician Interpretation * * * * EXAMINATION: XR SACRUM/COCCYX 3V AP/LAT CLINICAL HISTORY: Fall, pain in coccyx Technique: XR SACRUM/COCCYX 3V AP/LAT -- NOT APPLICABLE with 3 views on 3 images Comparison: X-ray lumbar spine 01/26/2023 RESULT: No acute fracture or malalignment. Degenerative disc disease of the lower lumbar spine. IMPRESSION IMPRESSION: No acute osseous abnormality [employer] Operator: TIFFANIE Transcribe Date/Time: Jul 07 2023 11:21A Dictated by : LENNIE GONZALEZ MD This examination was interpreted and the report reviewed and electronically signed by: LENNIE GONZALEZ MD on Jul 07 2023 11:22AM EST [facility] XR Sacrum and Coccyx 3 Views Ordered By: Ccf Provider on 07-07-2023 [facility] HbA1c (Bld)on 07-02-2023 Average glucose Estimated from glycated hemoglobin (Bld) [Mass/Vol] 120 mg/dL [facility] HbA1c (Bld) [Mass fraction] 5.8 % High 4.3 - 5.6 % [facility] XR Sacrum and Coccyx 3 Views on 07-02-2023 Radiology Study observation (narrative) [facility] XR Foot - left AP and Latera l and obliqueon 05-05-2023 IMPRESSION: No acute osseous abnormality. [employer] Operator: PSCB Transcribe Date/Time: May 05 2023 4:19P Dictated by : LUISA ROBERSON MD This examination was interpreted and the report reviewed and electronically signed by: LUISA ROBERSON MD on May 05 2023 4:19PM [facility] DIVISION OF RADIOLOGY * * *Final Report* * * DATE OF EXAM: May 04 2023 2:10PM WOX [id number] - XR FOOT 3V AP/LAT/OBL LT / PROCEDURE REASON: multiple diagnoses * * * * Physician Interpretation * * * * PROCEDURE: Left foot INDICATION: Hammertoe of left foot Ulcer of toe of left foot, limited to breakdown of skin (HCC) .Ulcer of the left small toe laterally TECHNIQUE: XR FOOT 3V AP/LAT/OBL LT COMPARISON: 04/02/2023 FINDINGS: No soft tissue gas or foreign body. No periostitis or cortical destruction to suggest acute osteomyelitis. Stable postoperative change at the ankle and 1st ray. He fracture. DIVISION OF RADIOLOGY Provider, [facility] - 05/05/2023 * * *Final Report* * * DATE OF EXAM: May 04 2023 2:10PM WOX [id number] - XR FOOT 3V AP/LAT/OBL LT / PROCEDURE REASON: multiple diagnoses * * * * Physician Interpretation * * * * PROCEDURE: Left foot INDICATION: Hammertoe of left foot Ulcer of toe of left foot, limited to breakdown of skin (HCC) .Ulcer of the left small toe laterally TECHNIQUE: XR FOOT 3V AP/LAT/OBL LT COMPARISON: 04/02/2023 FINDINGS: No soft tissue gas or foreign body. No periostitis or cortical destruction to suggest acute osteomyelitis. Stable postoperative change at the ankle and 1st ray. He fracture. IMPRESSION IMPRESSION: No acute osseous abnormality. [employer] Operator: PSCB Transcribe Date/Time: May 05 2023 4:19P Dictated by : LUISA ROBERSON MD This examination was interpreted and the report reviewed and electronically signed by: LUISA ROBERSON MD on May 05 2023 4:19PM EST [facility] XR Foot - left AP and Latera l and obliqueOrdered By: Ccf Provider on 05-05-2023 [facility] C-REACTIVE PROTEIN (CRP)on 0 05-04-2023 CRP [Mass/Vol] 0.8 mg/dL <0.9 mg/dL [facility] CBC W Auto Differential pane l (Bld)on 05-04-2023 Basophils (Bld) [#/Vol] 0.04 10*3/uL <0.11 k/uL [facility] Basophils/100 WBC (Bld) 0.4 % [facility] Differential cell count method Nom (Bld) Auto [facility] Eosinophils (Bld) [#/Vol] 0.22 10*3/uL <0.46 k/uL [facility] Eosinophils/100 WBC (Bld) 2.5 % [facility] Erythrocyte distribution width (RBC) [Ratio] 13.7 % 11.5 - 15.0 % [facility] Hematocrit (Bld) [Volume fraction] 45.2 % 36.0 - 46.0 % [facility] Hemoglobin (Bld) [Mass/Vol] 13.9 g/dL 11.5 - 15.5 g/dL [facility] Immature granulocytes (Bld) [#/Vol] 0.04 10*3/uL <0.10 k/uL [facility] Immature granulocytes/100 WBC (Bld) 0.4 % [facility] Lymphocytes (Bld) [#/Vol] 2.83 10*3/uL 1.00 - 4.00 k/uL [facility] Lymphocytes/100 WBC (Bld) 31.8 % [facility] MCH (RBC) [Entitic mass] 28.8 pg 26.0 - 34.0 pg [facility] MCHC (RBC) [Mass/Vol] 30.8 g/dL 30.5 - 36.0 g/dL [facility] MCV (RBC) [Entitic vol] 93.8 fL 80.0 - 100.0 fL [facility] Monocytes (Bld) [#/Vol] 0.67 10*3/uL <0.87 k/uL [facility] Monocytes/100 WBC (Bld) 7.5 % [facility] Neutrophils (Bld) [#/Vol] 5.09 10*3/uL 1.45 - 7.50 k/uL [facility] Neutrophils/100 WBC (Bld) 57.4 % [facility] Nucleated RBC (Bld) [#/Vol] <0.01 k/uL [facility] Nucleated RBC/100 WBC (Bld) [Ratio] 0.0 /100 WBC [facility] Platelet mean volume (Bld) [Entitic vol] 9.8 fL 9.0 - 12.7 fL [facility] Platelets (Bld) [#/Vol] 327 10*3/uL 150 - 400 k/uL [facility] RBC (Bld) [#/Vol] 4.82 10*6/uL 3.90 - 5.20 m/uL [facility] WBC (Bld) [#/Vol] 8.89 10*3/uL 3.70 - 11.00 k/uL [facility] Comprehensive metabolic 2000 panelon 05-04-2023 Albumin [Mass/Vol] 4.0 g/dL 3.9 - 4.9 g/dL [facility] ALP [Catalytic activity/Vol] 77 U/L 34 - 123 U/L [facility] ALT [Catalytic activity/Vol] 10 U/L 7 - 38 U/L [facility] Anion gap [Moles/Vol] 10 mmol/L 9 - 18 mmol/L [facility] AST [Catalytic activity/Vol] 27 U/L 13 - 35 U/L [facility] Bilirubin [Mass/Vol] 0.2 mg/dL 0.2 - 1 .3 mg/dL [facility] Calcium [Mass/Vol] 9.6 mg/dL 8.5 - 10. 2 mg/dL [facility] Chloride [Moles/Vol] 105 mmol/L 97 - 10 5 mmol/L [facility] CO2 [Moles/Vol] 25 mmol/L 22 - 30 mmol/L [facility] Creatinine [Mass/Vol] 0.77 mg/dL 0.58 - 0.96 mg/dL [facility] Estimated Glomerular Filtration Rate 92 mL/min/1.73m >=60 mL/min/1.7 3m [facility] Glucose [Mass/Vol] 85 mg/dL 74 - 99 mg/dL [facility] Potassium [Moles/Vol] 4.1 mmol/L 3.7 - 5.1 mmol/L [facility] Protein [Mass/Vol] 6.6 g/dL 6.3 - 8.0 g/dL [facility] Sodium [Moles/Vol] 140 mmol/L 136 - 144 mmol/L [facility] Urea nitrogen [Mass/Vol] 9 mg/dL 7 - 21 mg/dL [facility] ESR Westergren method (Bld) [Velocity]on 05-04-2023 ESR (Bld) [Velocity] 15 mm/h 0 - 20 mm/hr [facility] No Panel Informationon 05-04 Radiology Study observation (narrative) [facility] T4 FREE/FREE THYROXon 2023 Free T4 [Mass/Vol] 1.0 ng/dL 0.9 - 1.7 ng/dL [facility] TSH BLDon 05-04-2023 TSH Qn 1.020 m[IU]/L 0.270 - 4.200 mIU/L [facility] VITAMIN B12 BLOODon 05-04-19 Cobalamin (Vitamin B12) [Mass/Vol] 748 pg/mL 232 - 1,245 pg/mL [facility] XR Cervical spine AP and Lat eral and obliqueon 05-04-2023 IMPRESSION: Cervical spine degenerative changes with multilevel disc space narrowing and bilateral neural foraminal narrowing. [employer] Operator: TIFFANIE Transcribe Date/Time: May 04 2023 2:13P Dictated by : TIFFANI ROBBINS MD This examination was interpreted and the report reviewed and electronically signed by: TIFFANI ROBBINS MD on May 04 2023 2:15PM [facility] DIVISION OF RADIOLOGY * * *Final Report* * * DATE OF EXAM: May 04 2023 2:10PM WOX [id number] - XR CERVICAL 4V AP/LAT/OBL / PROCEDURE REASON: multiple diagnoses * * * * Physician Interpretation * * * * EXAM TITLE: XR CERVICAL 4V AP/LAT/OBL EXAM DATE/TIME: 05/04/2023 2:10 PM COMPARISON: X-ray cervical spine on 07/19/2008 CLINICAL INDICATION/HISTORY: Paresthesia. TECHNIQUE: AP, lateral, swimmer's and oblique views of the cervical spine are presented. FINDINGS: No fractures or subluxations are noted. There is C3-4, C4-5 and C6-7 disc space narrowing. There is moderate osteophyte formation. Facet arthrosis seen in the bilateral Luschka joints. There is multilevel bilateral neural foraminal narrowing. The prevertebral soft tissues are normal. DIVISION OF RADIOLOGY Provider, Manju Judit [facility] - 05/04/2023 * * *Final Report* * * DATE OF EXAM: May 04 2023 2:10PM WOX 5311 - XR CERVICAL 4V AP/LAT/OBL / PROCEDURE REASON: multiple diagnoses * * * * Physician Interpretation * * * * EXAM TITLE: XR CERVICAL 4V AP/LAT/OBL EXAM DATE/TIME: 05/04/2023 2:10 PM COMPARISON: X-ray cervical spine on 07/19/2008 CLINICAL INDICATION/HISTORY: Paresthesia. TECHNIQUE: AP, lateral, swimmer's and oblique views of the cervical spine are presented. FINDINGS: No fractures or subluxations are noted. There is C3-4, C4-5 and C6-7 disc space narrowing. There is moderate osteophyte formation. Facet arthrosis seen in the bilateral Luschka joints. There is multilevel bilateral neural foraminal narrowing. The prevertebral soft tissues are normal. IMPRESSION IMPRESSION: Cervical spine degenerative changes with multilevel disc space narrowing and bilateral neural foraminal narrowing. Magnesium Mill Operator: TIFFANIE Transcribe Date/Time: May 04 2023 2:13P Dictated by : TIFFANI ROBBINS MD This examination was interpreted and the report reviewed and electronically signed by: TIFFANI ROBBINS MD on May 04 2023 2:15PM EST [facility] XR Cervical spine AP and Lat eral and obliqueOrdered By: Ccf Provider on 05-04-2023 [facility] MRI SHOULDER WO IVCON RIGHTo n 04-29-2023 [facility] .Auto Diffon 03-28-2023 Basophil, Absolute 0.1 10 3/mcL Normal 0.0-0.2 [facility] ([place]) Comment on above: Performed By: #### A TRAVON HAMPTON MDW, CBC #### [address] [address] Basophils/100 WBC (Bld) 1.1 % Normal 0.0-2.5 [facility] ([place]) Comment on above: Performed By: #### A TRAVON HAMPTON MDW, CBC #### [address] [address] Eosinophil, Absolute 0.2 10 3/mcL Normal 0.0-0.4 [facility] ([place]) Comment on above: Performed By: #### A TRAVON HAMPTON MDW, CBC #### [address] [address] Eosinophils/100 WBC (Bld) 2.7 % Normal 0.0-7.0 [facility] ([place]) Comment on above: Performed By: #### A TRAVON HAMPTON MDW, CBC #### [address] [address] Lymphocyte, Absolute 2.8 10 3/mcL Normal 0.8-3.9 [facility] ([place]) Comment on above: Performed By: #### A TRAVON HAMPTON MDW, CBC #### [address] [address] Lymphocytes/100 WBC (Bld) 44.0 % Normal 10.0-50.0 [facility] ([place]) Comment on above: Performed By: #### A TRAVON HAMPTON MDW, CBC #### [address] [address] Monocyte, Absolute 0.5 10 3/mcL Normal 0.2-1.0 [facility] ([place]) Comment on above: Performed By: #### A TRAVON HAMPTON MDW, CBC #### [address] [address] Monocytes/100 WBC (Bld) 7.0 % Normal 1.7-13.0 [facility] ([place]) Comment on above: Performed By: #### A TRAVON HAMPTON MDW, CBC #### [address] [address] Neutrophils/100 WBC (Bld) 45.2 % Normal 37.0-80.0 [facility] ([place]) Comment on above: Performed By: #### A TRAVON HAMPTON MDW, CBC #### [address] [address] .Won 03-28-2023 Monocyte Distribution Width 19.69 Normal 0.00-20.00 [facility] ([place]) Comment on above: Result Comment: For ED adult patients suspected of sepsis, MDW<=20.0 does not rule out sepsis or risk of sepsis Performed By: #### A TRAVON HAMPTON MDW, CBC #### [place] [address] .NEUABSon 03-28-2023 Neutrophil, Absolute 2.9 10 3/mcL Normal 2.9-6.2 [facility] ([place]) Comment on above: Performed By: #### A TRAVON HAMPTON MDW, CBC #### [place] [address] .Urinalysis Microscopic (AO) on 03-28-2023 UA RBC LOADED Abnormal None Seen [facility] ([place]) Comment on above: Performed By: #### P REGU, UAMICAO, UA #### [place] [address] UA Squam Epithelial 5-10 Abnormal None Seen [facility] ([place]) Comment on above: Performed By: #### P REGU, UAMICAO, UA #### [place] [address] UA WBC None Seen Normal None Seen [facility] ([place]) Comment on above: Performed By: #### P REGU, UAMICAO, UA #### [place] [address] CBCon 03-28-2023 Erythrocyte distribution width (RBC) [Ratio] 13.7 % Normal 11.5-14.5 [facility] ([place]) Comment on above: Order Comment: clott ed Performed By: #### A TRAVON HAMPTON MDW, CBC #### [place] [address] Hematocrit (Bld) [Volume fraction] 37.7 % Normal 37.0-47.0 [facility] ([place]) Comment on above: Order Comment: clott ed Performed By: #### A TRAVON HAMPTON MDW, CBC #### [place] [address] Hgb 12.6 G/dL Normal 12.0-16.0 [facility] ([place]) Comment on above: Order Comment: clott ed Performed By: #### A TRAVON HAMPTON MDW, CBC #### [place] [address] MCH (RBC) [Entitic mass] 30.1 pg Normal 27.0-31.2 [facility] ([place]) Comment on above: Order Comment: clott ed Performed By: #### A TRAVON HAMPTON MDW, CBC #### [place] [address] [address] MCHC 33.5 G/dL Normal 33.0-37.0 [facility] ([place]) Comment on above: Order Comment: clott ed Performed By: #### A TRAVON HAMPTON MDW, CBC #### [place] [address] [address] MCV (RBC) [Entitic vol] 90.0 fL Normal 80.0-94.0 [facility] ([place]) Comment on above: Order Comment: clott ed Performed By: #### TRAVON BANG MDW, CBC #### [address] [address] Platelet 257 10 3/mcL Normal 130-400 [facility] ([place]) Comment on above: Order Comment: clott ed Performed By: #### A TRAVON HAMPTON MDW, CBC #### [address] [address] Platelet mean volume (Bld) [Entitic vol] 7.3 fL Low 7.4-10.4 [facility] ([place]) Comment on above: Order Comment: clott ed Performed By: #### A TRAVON HAMPTON MDW, CBC #### [address] [address] RBC 4.19 10 6/mcL Low 4.20-5.40 [facility] ([place]) Comment on above: Order Comment: clott ed Performed By: #### TRAVON BANG MDW, CBC #### [address] [address] WBC 6.5 10 3/mcL Normal 4.6-10.8 [facility] ([place]) Comment on above: Order Comment: clott ed Performed By: #### TRAVON BANG MDW, CBC #### [place] [address] [place], [place] [address] LABORATORYOrdered By: SYSTEM SYSTEM on 03-28-2023 Basophil, Absolute 0.1 103/mcL Normal 0.0 - 0.2 10^3/mcL AO Workflow SS Basophils/100 WBC (Bld) 1.1 % Normal 0.0 - 2.5 % AO Workflow SS Eosinophil, Absolute 0.2 103/mcL Normal 0.0 - 0 .4 10^3/mcL AO Workflow SS Eosinophils/100 WBC (Bld) 2.7 % Normal 0.0 - 7.0 % AO Workflow SS Erythrocyte distribution width (RBC) [Ratio] 13.7 % Normal 11.5 - 14.5 % AO Workflow SS Hematocrit (Bld) [Volume fraction] 37.7 % Normal 37.0 - 47.0 % AO Workflow SS Hemoglobin (Bld) [Mass/Vol] 12.6 G/dL Normal 12.0 - 16.0 G/dL AO Workflow SS Lymphocyte, Absolute 2.8 103/mcL Normal 0.8 - 3 .9 10^3/mcL AO Workflow SS Lymphocytes/100 WBC (Bld) 44.0 % Normal 10.0 - 50.0 % AO Workflow SS MCH (RBC) [Entitic mass] 30.1 pg Normal 27.0 - 31.2 pg AO Workflow SS MCHC 33.5 G/dL Normal 33.0 - 37.0 G/dL AO Workflow SS MCV (RBC) [Entitic vol] 90.0 fL Normal 80.0 - 94.0 fL AO Workflow SS Monocyte distribution width Auto (Bld) [Entitic vol] 19.69 1 Normal 0.00 - 20.00 AO Workflow SS Comment on above: Result Comment: For ED adult patients suspected of sepsis, MDW<=20.0 does not rule out sepsis or risk of sepsis Monocyte, Absolute 0.5 103/mcL Normal 0.2 - 1.0 10^3/mcL AO Workflow SS Monocytes/100 WBC (Bld) 7.0 % Normal 1.7 - 13.0 % AO Workflow SS Neutrophil, Absolute 2.9 103/mcL Normal 2.9 - 6 .2 10^3/mcL AO Workflow SS Neutrophils/100 WBC (Bld) 45.2 % Normal 37.0 - 80.0 % AO Workflow SS Platelet mean volume (Bld) [Entitic vol] 7.3 fL Low 7.4 - 10.4 fL AO Workflow SS Platelets (Bld) [#/Vol] 257 103/mcL Normal 130 - 400 10^3/mcL AO Workflow SS RBC (Bld) [#/Vol] 4.19 106/mcL Low 4.20 - 5.40 10^6/mcL AO Workflow SS WBC (Bld) [#/Vol] 6.5 103/mcL Normal 4.6 - 10.8 10^3/mcL AO Workflow SS LABORATORYOrdered By: Grace Patel on 03-28-2023 Appearance (U) Cloudy *ABN* (03/28/23 9:28 AM) Invalid Interpretation Code Clear AO Auto Urine SS Bilirubin Ql (U) Negative (03/28/23 9:28 AM) Normal Negative AO Auto Urine SS Color (U) Red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 mouth twice a day - DULoxetine (CYMBALTA) 60 mg capsule Take 2 capsules by mouth once daily. Prescribed by Dr. Schmidt - Lancing Device (LANCING DEVICE WITH LANCETS) [facility] Check blood sugar once daily - Lancets lancets Test blood sugar(s) once daily. Dx: E11.9. New onset type 2 diabetes Insulin: No - pregabalin (LYRICA) 300 mg capsule Take 1 capsule by mouth three times daily. Prescribed by Dr. Schmidt - multivitamin tablet Take 1 tablet by mouth once daily. - aspirin 325 mg tablet Take 325 mg by mouth once daily. - acetaminophen (TYLENOL) 325 mg tablet Take 2 tablets by mouth once daily. for pain. No current facility-administered medications on file as of 05/14/2021. I have interviewed and examined the patient. I have reviewed the medical record and/or the pre-anesthesia evaluation, pertinent labs, and test results. This contains updated information obtained within 48 hours of Surgery/Procedure. SIGNATURE: Ralph Huitron MD PATIENT NAME: Olga Lidia Tello DATE: May 14, 2021 TIME: 8:56 AM CSN: [id number] [facility] HCG ( test) Ql (U)o n 05-14-2021 Specific gravity (U) [Rel density] 1.025 Normal 1.005-1.03 0 [facility] Comment on above: Order Comment: Speci men Type: URINE SPECIMEN Ordering Facility: [facility] Address: [address] [place] [address] Result Comment: If s pecific gravity is <1.005 then results may be falsely negative. Serum HCG is recommended. Performed By: #### 2 106-3 #### [facility] CLIA [id number] [address] [place] [address] HCG Preg Ur Qlon 05-14-2021 HCG ( test) Ql (U) Negative Normal Negative [facility] Comment on above: Order Comment: Speci men Type: URINE SPECIMEN Ordering Facility: [facility] Address: [address] [place] [address] Result Comment: This test is intended to aid in the early detection of . Very dilute urine samples, as indicated by a low specific gravity, may not contain computer help desk representative levels of hCG. This test detects intact hCG only. This test does not reliably detect hCG degradation products, including free-beta subunit and beta-core fragment. Therefore, this test may show reduced reactivity in urine after 8 weeks gestation. A number of conditions other than , including trophoblastic disease and certain non-trophoblastic neoplasms cause elevated levels of hCG. As with any assay employing mouse antibodies, the possibility exists for interference by human anti-mouse antibodies (HAMA) in the specimen. The test provides a presumptive diagnosis for . Performed By: #### 2 106-3 #### [facility] CLIA [id number] [address] HISTORY PHYSICALon 2 HISTORY PHYSICAL HNO ID: [id number] Author: Mary Beckford APRN.NUTRITION SERVICES WORKER Service: Anesthesiology Author Type: Nurse Practitioner Type: HANDP Filed: 05/14/2021 9:28 AM Note Text: HISTORY AND PHYSICAL EXAMINATION Olga Lidia Tello 1970 SERVICE DATE: 05/14/2021 SERVICE TIME: 9:10 AM PRIMARY CARE PHYSICIAN: Lulu Luciano MD SURGEON: ANESTHESIA: MAC DIAGNOSIS: Family history of colon cancer [Z80.0] Dysphagia, unspecified type [R13.10] PROCEDURE: EGD/colonoscopy Subjective CHIEF COMPLAINT: EGD, colonoscopy HPI: This is a 50 year old female who presents with family hx colon cancer, last colonoscopy 5 years ago. Pt denies changes in bowel habits, no hematochezia or melena, no abdominal pain. Pt with dysphagia taking Prilosec pt continues with GERD symptoms daily. Father with hx colon cancer diagnosed age 75. 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 Palencia will check MRA in 2012 - Benign paroxysmal positional vertigo not an issue since 2006 - Cataract - Chronic cholecystitis 2007 - Diabetes ([facility]) - Dizziness and giddiness - Elevated AST (SGOT) 10/16/2011 - Esophageal reflux - Excessive or frequent menstruation 06/19/2008 - Family history of cardiac disorder in mother 12/23/2013 - Fibromyalgia - Hallux valgus (acquired) 01/12/2006 - Hx-TIA (transient ischemic attack) January 2012 [place] - Mixed hyperlipidemia 03/19/2006 Resolved - Morbid obesity with BMI of 40.0-44.9, adult ([facility]) 09/12/2014 - Myalgia and myositis, unspecified - Neuropathy Dr. Schmidt managing - WILTON (obstructive sleep apnea) non compliant with CPAP - Other enthesopathy of ankle and tarsus 01/12/2006 - Other osteoporosis - Restless leg syndrome 08/16/2015 Dr. Schmidt managing - Retinal detachment 08/17/2015 PAST SURGICAL HISTORY Procedure Laterality Date - CATARACT EXTRACTION HX Right 05/2015 - COLONOSCOPY FLX DX W/COLLJ SPEC WHEN PFRMD 08/22/2015 Colonoscopy (MAC) - ENDOMETRIAL BX W/WO ENDOCERVIX BX W/O DILAT SPX 06/01/2008 Irregular Menses, Menorrhagia and Thickened Lining - ESOPHAGOGASTRODUODENOSCOPY TRANSORAL DIAGNOSTIC 08/22/2015 EGD (MAC) - LAPAROSCOPY SURG CHOLECYSTECTOMY 08/19/2007 - PAST SURGICAL HISTORY OF x 4 - PAST SURGICAL HISTORY OF foot surgery, multiple bilat - PAST SURGICAL HISTORY OF bilateral ankle fractures - PAST SURGICAL HISTORY OF 06/30/2014 right 2nd toe arthroplasty with tenotomies 3rd, 4th, and 5th toe - [facility]- Dr. Conteh - PAST SURGICAL HISTORY OF Right 04/2015 retinal tear - PAST SURGICAL HISTORY OF Right right knee surgery - TONSILLECTOMY AND ADENOIDECTOMY FAMILY HISTORY Problem Relation Age of Onset - Heart Mother - other (fibroids) Mother - Heart Father - Arthritis Father - Colon Cancer Father diagnosed at 74yo; has colostomy - Alzheimer's Disease Father - Psychiatry Maternal Grandmother Suicide - Cancer Paternal Grandmother Breast - Cancer Paternal Aunt Brain - Cancer Paternal Aunt Uterine cancer Social History Tobacco Use - Smoking status: Never Smoker - Smokeless tobacco: Never Used Vaping Use - Vaping Use: Never used Substance Use Topics - Alcohol use: Not Currently - Drug use: No Prior to Admission medications as of 05/14/21921 Medication Sig Last Dose Taking cholecalciferol, Vitamin D3, (VITAMIN D3) 1,250 mcg (50,000 unit) cap capsule Take 1 capsule by mouth one time a week. Past Week at Unknown time Yes omeprazole (PRILOSEC) 40 mg capsule Take 1 capsule by mouth once daily. 05/13/2021 at Unknown time Yes Ferrous Gluconate (FERGON) 324 mg (38 mg iron) tablet Take 1 tablet by mouth twice daily with meals. Past Week at Unknown time Yes dulaglutide (TRULICITY) 1.5 mg/0.5 mL pen injector Inject 1.5 mg subcutaneously one time a week. Past Week at Unknown time Yes ibuprofen (MOTRIN) 800 mg tablet Take 1 tablet by mouth every 8 hours as needed for pain. 05/13/2021 at Unknown time Yes lactobacillus combination no.4 (PROBIOTIC) 3 billion cell cap Take 1 capsule by mouth once daily. 05/13/2021 at Unknown time Yes metFORMIN (GLUCOPHAGE) 500 mg tablet Take 2 tablets by mouth twice daily with meals. 05/13/2021 at Unknown time Yes tolterodine (DETROL) 2 mg tablet take 1 tablet by mouth twice a day 05/13/2021 at Unknown time Yes DULoxetine (CYMBALTA) 60 mg capsule Take 2 capsules by mouth once daily. Prescribed by Dr. Schmidt 05/13/2021 at Unknown time Yes pregabalin (LYRICA) 300 mg capsule Take 1 capsule by mouth three times daily. Prescribed by Dr. Schmidt 05/14/2021 at Unknown time Yes multivitamin tablet Take 1 tablet by mouth once daily. 05/13/2021 at Unknown time Yes peg 3350-Electrolytes (GOLYTELY) 236-22.74-6.74 -5.86 gram suspension Refer to printed prep instructions from your provider. (more content not included)... Normal [facility] OPERATIVE NOon 05-14-2021 OPERATIVE NO HNO ID: [id number] Author: Danis Dhaliwal MD Service: Gastroenterology Author Type: Physician Type: Operative Report Filed: 05/14/2021 10:43 AM Note Text: OPERATIVE/PROCEDURE REPORT LOG ID: [id number] Surgery/Procedure Date: Incision/Procedure Start Time: 10:11 AM Incision Close/Procedure End Time: 10:37 AM Surgeon(s)/Proceduralist(s ) and Auto Roller(s): * No surgeons found in log * No Additional Staff Procedure(s): Esophagogastroduodenoscopy (EGD) with biopsy and dilation using savory dilator Colonoscopy with cold snare polypectomy Anesthesia: * No anesthesia type entered * Brief History: 50-year-old female who presented for EGD to evaluate GERD and dysphagia and colonoscopy given family history of colon cancer in her father at the age of 74 Procedure Details: The patient was placed in the left lateral decubitus position. A bite block was placed and medications administered as above. The Olympus gastroscope was used to intubate the oropharynx and esophagus with ease. Esophagus- No strictures; mucosa unremarkable; Z-line was irregular at 38 cm. Inlet patch appreciated in the upper esophagus. Several biopsies obtained from mid and lower esophagus to rule out EOE. The esophagus was empirically dilated using 54 savory dilator Stomach- Cardia- No masses Body-patchy erythema consistent with gastropathy status post biopsy Antrum-patchy erythema and few erosions consistent with erosive gastropathy status post biopsy Fundus (during retroflexion)- normal Duodenum- Bulb- normal; Second part- normal The scope was then withdrawn and the patient tolerated the procedure well. Biopsies were taken to rule out H. Pylori. Retroflexion was performed and this showed a normal fundus and cardia. The squamocolumnar junction, GE junction and esophagus appeared normal. The scope was then withdrawn and the patient tolerated the procedure well. The patient was placed in the left lateral decubitus position. A digital rectal exam was performed and this was normal. The Olympus colonoscope was introduced into the rectum and advanced to the cecum. The procedure was not technically difficult. The cecum was identified by the appendiceal orifice and the ileocecal valve. The bowel preparation was good . The scope was then slowly withdrawn and the mucosal folds examined in detail. TI: Normal Cecum- Prep- good; sessile polyp measuring 4 mm underneath TI opening status post resection using cold snare Ascending colon- Polyps- none; Hepatic flexure- Polyps- none; Transverse colon- Polyps- none; Splenic flexure- Polyps- none Descending colon- Polyps- none; Sigmoid colon- Polyps- none; Rectum- Polyps- none; Retroflexion- hemorrhoids small Pre-Op/Pre-Procedure Diagnosis: Dysphagia GERD Family history of colon cancer in father Post-Op/Post-Procedure Diagnosis: Irregular Z-line Inlet patch in the upper esophagus Status post esophageal biopsies and dilation using savory dilator Distal gastropathy status post biopsies Single polyp in the cecum status post resection Internal hemorrhoids Specimens: See above EBL: None Complications: None Recommendations: Follow up pathology Continue current medication Further recommendations to be made after reviewing the results of the biopsy No qualified resident/fellow was available. Danis Dhaliwal MD SIGNATURE: Danis Dhaliwal MD PATIENT NAME: Olga Lidia Tello DATE: May 14, 2021 TIME: 10:39 AM PAGER/CONTACT #: [phone] [facility] SURGICAL PATHOLOGYon CASE REPORT [facility] Comment on above: Order Comment: Speci men Type: TISSUE SPECIMEN Ordering Facility: [facility] Address: [address] [place] [id number] Result Comment: Surg ica Pathology Report Case: [id number] Authorizing Provider: Georgie Townsend APRN.NUTRITION SERVICES WORKER Collected: 05/14/2021 10:13 AM Ordering Location: [facility] Received: 05/14/2021 03:32 PM Pathologist: Emilee Escobedo MD Specimens: A) - STOMACH BIOPSY B) - ESOPHAGUS BIOPSY C) - CECUM POLYP Performed By: #### S #### [facility] CLIA [id number] [address] [place] [address] DIAGNOSIS COMMENT Normal [facility] Comment on above: Order Comment: Barak chavez Type: TISSUE SPECIMEN Ordering Facility: [facility] Address: [address] [place] [address] Result Comment: Paz butler Developed Test (LDT) Disclaimer: Performance characteristics of immunohistochemical, immunofluorescent and chromogenic in-situ hybridization tests have been determined by the performing laboratory within [facility]???s [facility] Pathology and Laboratory Medicine [place]al ([facility], [facility], [facility] or [facility]) in a manner consistent with CLIA requirements. One or more of these tests have not been cleared or approved by the FDA. [facility] is regulated under CLIA as qualified to perform high-complexity testing. These tests are used for clinical purposes. They should not be regarded as investigational or for research. Positive and negative controls stain appropriately. Performed By: #### S #### [facility] CLIA [id number] [address] [place] [address] [facility] Comment on above: Order Comment: Barak chavez Type: TISSUE SPECIMEN Ordering Facility: [facility] Address: [address] [place], [place] [id number] Result Comment: A) G astric biopsy - Chronic and active acute gastritis. No organisms are identified on a Helicobacter pylori immunostain. B) Esophageal biopsies - Fragments of squamous mucosa with no inflammatory process or other diagnostic abnormality identified. C) Colonic biopsy (cecum) - Hyperplastic polyp. Performed By: #### S #### [facility] CLIA [id number] [address] [place] [address] FINAL PERFORMING LAB Normal [facility] Comment on above: Order Comment: Speci men Type: TISSUE SPECIMEN Ordering Facility: [facility] Address: [address] [place], [place] [id number] Result Comment: Diag nostic interpretation performed at [facility], [address] [place] [address] CLIA# [id number] [employer] Administrator: Alton Dumont M.D. Performed By: #### S #### [facility] CLIA [id number] [address] [place] [address] GROSS DESCRIPTION Normal [facility] Comment on above: Order Comment: Speci men Type: TISSUE SPECIMEN Ordering Facility: [facility] Address: [address] [place] [id number] Result Comment: A. S TOMACH BIOPSY. Received in formalin labeled stomach biopsy are multiple pieces of wood, soft tissue aggregating to 1 x 0.2 x 0.2 cm. Totally submitted in one cassette. B. ESOPHAGUS BIOPSY. Received in formalin labeled esophagus biopsy are multiple pieces of wood, soft tissue aggregating to 1.6 x 0.2 x 0.2 cm. Totally submitted in one cassette. C. CECUM POLYP. Received in formalin labeled cecum polyp are multiple pieces of wood, soft tissue admixed with scantly present vegetative material aggregating to 1.7 x 0.6 x 0.2 cm. Totally submitted in one cassette. Gross examination performed at [facility], [address] [place] [address] RSA May 15, 2021 12:27 PM Performed By: #### S #### [facility] CLIA [id number] [address] [place] [address] OF MICHELE Vitamin B1,Whole Bloodon Vitamin B1,Whole Blood 124 nmol/L Normal 70-180 [facility] Comment on above: Result Comment: INTE RPRETIVE INFORMATION: Vitamin B1, Whole Blood This assay measures the concentration of thiamine diphosphate (TDP), the primary active form of vitamin B1. Approximately 90 percent of vitamin B1 present in whole blood is TDP. Thiamine and thiamine monophosphate, which comprise the remaining 10 percent, are not measured. This test was developed and its performance characteristics determined by [facility]. It has not been cleared or approved by the [place] Food and Drug Administration. This test was performed in a CLIA certified laboratory and is intended for clinical purposes. Performed By: [facility] [address] [place] [id number] [employer] Administrator: Hailee Blackwell MD Performed By: #### M G3, LIPD2, IRON3, FERR3, HA1C2, FOLT3, TSH5, B12, CMP3, HEMOG #### [facility] [employer] [address] [address] #### ZINC2, WBB1O #### The performing lab is in the report. #### VD25H #### [facility] [employer] [facility] [address] [place] [address] Zinc, Serumon 02-09-2021 Zinc, Serum 74.2 ug/dL Normal 60.0-120.0 [facility] Comment on above: Result Comment: INTE RPRETIVE INFORMATION: Zinc, Serum or Plasma Elevated results may be due to skin or collection-related contamination, including the use of a noncertified metal-free collection/transport tube. If contamination concerns exist due to elevated levels of serum/plasma zinc, confirmation with a second specimen collected in a certified metal-free tube is recommended. Circulating zinc concentrations are dependent on albumin status and are depressed with malnutrition. Zinc may also be lowered with infection, inflammation, stress, oral contraceptives, and . Zinc may be elevated with zinc supplementation or fasting. Elevated zinc concentrations may interfere with copper absorption. This test was developed and its performance characteristics determined by [facility]. It has not been cleared or approved by the US Food and Drug Administration. This test was performed in a CLIA certified laboratory and is intended for clinical purposes. Performed By: [facility] [address] [place] [id number] [employer] Administrator: Hailee Blackwell MD Performed By: #### M G3, LIPD2, IRON3, FERR3, HA1C2, FOLT3, TSH5, B12, CMP3, HEMOG #### [facility] [employer] [address] [address] #### ZINC2, WBB1O #### The performing lab is in the report. #### VD25H #### [facility] [address] [place] [address] LABORATORYOrdered By: Charissa Johnston on 02-08-2021 Glucose [Mass/Vol] 145 mg/dL Invalid Interpretation Code 70 - 110 mg/dL [facility] CBCon 02-06-2021 Hemoglobin.gastrointe stinal spec 1 Ql (Stl) 15.1 g/dL 11.7 - 16.0 g/dL [facility] MCHC (RBC) [Mass/Vol] 34.2 % 32.0 - 36.0 % [facility] Platelet distribution width (Bld) [Ratio] 13.7 % 11.5 - 14.5 % [facility] Comp Metabolic Panelon 02-06 ALT [Catalytic activity/Vol] 15 U/L Normal 0-34 [facility] Comment on above: Result Comment: The ALT test is performed by an updated assay method. Please note that the reference intervals have been changed and are now sex specific. Performed By: #### M G3, LIPD2, IRON3, FERR3, HA1C2, FOLT3, TSH5, B12, CMP3, HEMOG #### [address] [address] #### ZINC2, WBB1O #### The performing lab is in the report. #### VD25H #### [facility] [address] [place] [address] Calcium [Mass/Vol] 9.8 mg/dL Normal 8.4-10.4 [facility] Comment on above: Performed By: #### M G3, LIPD2, IRON3, FERR3, HA1C2, FOLT3, TSH5, B12, CMP3, HEMOG #### [address] [address] #### ZINC2, WBB1O #### The performing lab is in the report. #### VD25H #### [facility] [address] [place] [address] ALP [Catalytic activity/Vol] 85 U/L Normal 38-126 [facility] Comment on above: Performed By: #### M G3, LIPD2, IRON3, FERR3, HA1C2, FOLT3, TSH5, B12, CMP3, HEMOG #### [address] #### ZINC2, WBB1O #### The performing lab is in the report. #### VD25H #### [facility] [address] [place] [address] Anion gap [Moles/Vol] 9 mmol/L Normal 3-13 [facility] Comment on above: Performed By: #### M G3, LIPD2, IRON3, FERR3, HA1C2, FOLT3, TSH5, B12, CMP3, HEMOG #### [address] #### ZINC2, WBB1O #### The performing lab is in the report. #### VD25H #### [place] [address] [place] [address] AST [Catalytic activity/Vol] 41 U/L Normal 15-46 [facility] Comment on above: Performed By: #### M G3, LIPD2, IRON3, FERR3, HA1C2, FOLT3, TSH5, B12, CMP3, HEMOG #### [address] #### ZINC2, WBB1O #### The performing lab is in the report. #### VD25H #### [place] [address] [place] [address] Bilirubin [Mass/Vol] 0.4 mg/dL Normal 0.2-1.3 [facility] Comment on above: Performed By: #### M G3, LIPD2, IRON3, FERR3, HA1C2, FOLT3, TSH5, B12, CMP3, HEMOG #### [address] #### ZINC2, WBB1O #### The performing lab is in the report. #### VD25H #### [place] [address] [place] [address] CO2 [Moles/Vol] 29 mmol/L Normal 22-[address] [facility] Comment on above: Performed By: #### M G3, LIPD2, IRON3, FERR3, HA1C2, FOLT3, TSH5, B12, CMP3, HEMOG #### [address] #### ZINC2, WBB1O #### The performing lab is in the report. #### VD25H #### [facility] [address] [place] [address] Creatinine [Mass/Vol] 0.74 mg/dL Normal 0.52-1.25 [facility] Comment on above: Performed By: #### M G3, LIPD2, IRON3, FERR3, HA1C2, FOLT3, TSH5, B12, CMP3, HEMOG #### [address] #### ZINC2, WBB1O #### The performing lab is in the report. #### VD25H #### [facility] [address] [place] [address] eGFR OTHER > 90.0 Normal >60 [facility] Comment on above: Result Comment: KDIG O guidelines provide the following GFR categories: Stage GFR(ml/min/1.73 m2) Terms G1 >=90 Normal or high G2 60-89 Mildly decreased* G3a 45-59 Mildly to moderately decreased G3b 30-44 Moderately to severely decreased G4 15-29 Severely decreased G5 <15 Kidney failure *Relative to young adult level. In the absence of evidence of kidney damage, neither GFR category G1 nor G2 fulfill the criteria for CKD. The CKD-EPI equation is validated in individuals 18 years of age and older. Currently the best equation for estimating glomerular filtration rate (GFR) from serum creatinine in children is the Bedside Friend equation. It is less accurate in patients with extremes of muscle mass, restriction of dietary protein, ingestion of creatine, extra-renal metabolism of creatinine, or treatment with medications that affect renal tubular creatinine secretion. Performed By: #### M G3, LIPD2, IRON3, FERR3, HA1C2, FOLT3, TSH5, B12, CMP3, HEMOG #### [address] #### ZINC2, WBB1O #### The performing lab is in the report. #### VD25H #### [facility] [address] [place] [address] GFR/1.73 sq M.predicted among blacks MDRD (S/P/Bld) [Vol rate/Area] mL/min/{1.73_m2} Normal >60 [facility] Comment on above: Performed By: #### M G3, LIPD2, IRON3, FERR3, HA1C2, FOLT3, TSH5, B12, CMP3, HEMOG #### [address] #### ZINC2, WBB1O #### The performing lab is in the report. #### VD25H #### [facility] [address] [place] [address] Glucose [Mass/Vol] 141 mg/dL High 70-100 [facility] Comment on above: Performed By: #### M G3, LIPD2, IRON3, FERR3, HA1C2, FOLT3, TSH5, B12, CMP3, HEMOG #### [address] #### ZINC2, WBB1O #### The performing lab is in the report. #### VD25H #### [facility] [address] [place] [address] Protein [Mass/Vol] 6.9 g/dL Normal 6.3-8.2 [facility] Comment on above: Performed By: #### M G3, LIPD2, IRON3, FERR3, HA1C2, FOLT3, TSH5, B12, CMP3, HEMOG #### [facility] [address] [place], [place] #### ZINC2, WBB1O #### The performing lab is in the report. #### VD25H #### [facility] [address] [place] [address] Urea nitrogen [Mass/Vol] 15 mg/dL Normal 9-20 [facility] Comment on above: Performed By: #### M G3, LIPD2, IRON3, FERR3, HA1C2, FOLT3, TSH5, B12, CMP3, HEMOG #### [address] #### ZINC2, WBB1O #### The performing lab is in the report. #### VD25H #### [place] [address] [place] [address] Potassium [Moles/Vol] 4.1 mmol/L Normal 3.5-5.1 [facility] Comment on above: Performed By: #### M G3, LIPD2, IRON3, FERR3, HA1C2, FOLT3, TSH5, B12, CMP3, HEMOG #### [address] #### ZINC2, WBB1O #### The performing lab is in the report. #### VD25H #### [address] [place] [address] Albumin [Mass/Vol] 4.0 g/dL Normal 3.5-5.0 [facility] Comment on above: Performed By: #### M G3, LIPD2, IRON3, FERR3, HA1C2, FOLT3, TSH5, B12, CMP3, HEMOG #### [address] #### ZINC2, WBB1O #### The performing lab is in the report. #### VD25H #### [address] [place] [address] Chloride [Moles/Vol] 103 mmol/L Normal 98-107 [facility] Comment on above: Performed By: #### M G3, LIPD2, IRON3, FERR3, HA1C2, FOLT3, TSH5, B12, CMP3, HEMOG #### [address] #### ZINC2, WBB1O #### The performing lab is in the report. #### VD25H #### [address] [address] Sodium [Moles/Vol] 141 mmol/L Normal 135-145 [facility] Comment on above: Performed By: #### M G3, LIPD2, IRON3, FERR3, HA1C2, FOLT3, TSH5, B12, CMP3, HEMOG #### [facility] [address] [place] [address] #### ZINC2, WBB1O #### The performing lab is in the report. #### VD25H #### [facility] [address] [place] [address] Comprehensive Metabolic Pane aashish 02-06-2021 Albumin [Mass/Vol] 4.0 g/dL 3.5 - 5.0 g/dL [facility] ALP (Bld) [Catalytic activity/Vol] 85 U/L 38 - 126 U/L [facility] ALT [Catalytic activity/Vol] 15 U/L 0 - 34 U/L [facility] Comment on above: The ALT test is perf ormed by an updated assay method. Please note that the reference intervals have been changed and are now sex specific. Anion gap [Moles/Vol] 9 mmol/L 3 - 13 mmol/L [facility] AST [Catalytic activity/Vol] 41 U/L 15 - 46 U/L [facility] Bilirubin [Mass/Vol] 0.4 mg/dL 0.2 - 1 .3 mg/dL [facility] Calcium [Mass/Vol] 9.8 mg/dL 8.4 - 10. 4 mg/dL [facility] Chloride [Moles/Vol] 103 mmol/L 98 - 10 7 mmol/L [facility] CO2 [Moles/Vol] 29 mmol/L 22 - 30 mmol/L [facility] Creatinine [Mass/Vol] 0.74 mg/dL 0.52 - 1.25 mg/dL [facility] EGFR IF NonAfrican Serbian >90.0 >60 mL/min [facility] Comment on above: KDIGO guidelines pro vide the following GFR categories: Stage GFR(ml/min/1.73 m2) Terms G1 >=90 Normal or high G2 60-89 Mildly decreased* G3a 45-59 Mildly to moderately decreased G3b 30-44 Moderately to severely decreased G4 15-29 Severely decreased G5 <15 Kidney failure *Relative to young adult level. In the absence of evidence of kidney damage, neither GFR category G1 nor G2 fulfill the criteria for CKD. The CKD-EPI equation is validated in individuals 18 years of age and older. Currently the best equation for estimating glomerular filtration rate (GFR) from serum creatinine in children is the Bedside Friend equation. It is less accurate in patients with extremes of muscle mass, restriction of dietary protein, ingestion of creatine, extra-renal metabolism of creatinine, or treatment with medications that affect renal tubular creatinine secretion. Free PSA/Total PSA [Mass fraction] 6.9 g/dL 6.3 - 8.2 g/dL [facility] GFR/1.73 sq M.predicted among blacks MDRD (S/P/Bld) [Vol rate/Area] mL/min/{1.73_m2} >60 mL/min [facility] Glucose [Mass/Vol] 141 mg/dL High 70 - 100 mg/dL [facility] Potassium [Moles/Vol] 4.1 mmol/L 3.5 - 5.1 mmol/L [facility] Sodium [Moles/Vol] 141 mmol/L 135 - 145 mmol/L [facility] Urea nitrogen (BldV) [Mass/Vol] 15 mg/dL 9 - 20 mg/dL [facility] Ferritinon 02-06-2021 Ferritin [Mass/Vol] 74 ng/mL Normal 11-264 [facility] Comment on above: Performed By: #### M G3, LIPD2, IRON3, FERR3, HA1C2, FOLT3, TSH5, B12, CMP3, HEMOG #### [address] [address] #### ZINC2, WBB1O #### The performing lab is in the report. #### VD25H #### [facility] [address] [place] [address] Ferritin [Mass/Vol] 74 ng/mL 11 - 264 ng/mL [facility] Folateon 02-06-2021 Folate 13.3 ng/mL Normal [facility] Comment on above: Result Comment: >2.8 Performed By: #### M G3, LIPD2, IRON3, FERR3, HA1C2, FOLT3, TSH5, B12, CMP3, HEMOG #### [address] [address] #### ZINC2, WBB1O #### The performing lab is in the report. #### VD25H #### [facility] [address] [place] [address] Folate 13.3 ng/mL [facility] Comment on above: >2.8 Hemoglobin A1Con 02-06-2021 Glucose [Mass/Vol] 148 mg/dL Normal [facility] Comment on above: Performed By: #### M G3, LIPD2, IRON3, FERR3, HA1C2, FOLT3, TSH5, B12, CMP3, HEMOG #### [address] [address] #### ZINC2, WBB1O #### The performing lab is in the report. #### VD25H #### [facility] [address] [place] [address] HbA1c (Bld) [Mass fraction] 6.8 % Abnormal [facility] Comment on above: Result Comment: Norm al less than 5.7% Prediabetes 5.7% to 6.4% Diabetes 6.5% or higher --HgbA1C levels may not be accurate in patients who have renal disease, received recent blood transfusions, are anemic, or who have dyshemoglobinemia. Performed By: #### M G3, LIPD2, IRON3, FERR3, HA1C2, FOLT3, TSH5, B12, CMP3, HEMOG #### [address] [address] #### ZINC2, WBB1O #### The performing lab is in the report. #### VD25H #### [facility] [address] [place] [address] HbA1c (Bld) [Mass fraction] 6.8 % Abnormal [facility] Comment on above: Normal less than 5.7 % Prediabetes 5.7% to 6.4% Diabetes 6.5% or higher --HgbA1C levels may not be accurate in patients who have renal disease, received recent blood transfusions, are anemic, or who have dyshemoglobinemia. Interpretation and review of laboratory results Abnormal [facility] Magnesium [Mass/Vol] 148 mg/dL [facility] A Test Performed by [facility], [address] [place] [id number] [place] [address] LAB [facility] Hemogramon 02-06-2021 Erythrocyte distribution width (RBC) [Ratio] 13.7 % Normal 11.5-14.5 [facility] Comment on above: Performed By: #### M G3, LIPD2, IRON3, FERR3, HA1C2, FOLT3, TSH5, B12, CMP3, HEMOG #### [address] #### ZINC2, WBB1O #### The performing lab is in the report. #### VD25H #### [place] [address] [place] [address] Hematocrit (Bld) [Volume fraction] 44.3 % Normal 35.0-47.0 [facility] Comment on above: Performed By: #### M G3, LIPD2, IRON3, FERR3, HA1C2, FOLT3, TSH5, B12, CMP3, HEMOG #### [address] #### ZINC2, WBB1O #### The performing lab is in the report. #### VD25H #### [place] [address] [place] [address] Hemoglobin (Bld) [Mass/Vol] 15.1 g/dL Normal 11.7-16.0 [facility] Comment on above: Performed By: #### M G3, LIPD2, IRON3, FERR3, HA1C2, FOLT3, TSH5, B12, CMP3, HEMOG #### [address] #### ZINC2, WBB1O #### The performing lab is in the report. #### VD25H #### [address] [place] [address] MCH (RBC) [Entitic mass] 31.6 pg Normal 26.0-34.0 [facility] Comment on above: Performed By: #### M G3, LIPD2, IRON3, FERR3, HA1C2, FOLT3, TSH5, B12, CMP3, HEMOG #### [address] #### ZINC2, WBB1O #### The performing lab is in the report. #### VD25H #### [place] [address] [place] [address] MCHC 34.2 % Normal 32.0-36.0 [facility] Comment on above: Performed By: #### M G3, LIPD2, IRON3, FERR3, HA1C2, FOLT3, TSH5, B12, CMP3, HEMOG #### [address] #### ZINC2, WBB1O #### The performing lab is in the report. #### VD25H #### [address] [place] [address] MCV (RBC) [Entitic vol] 92.5 fL Normal 79.0-98.0 [facility] Comment on above: Performed By: #### M G3, LIPD2, IRON3, FERR3, HA1C2, FOLT3, TSH5, B12, CMP3, HEMOG #### [address] #### ZINC2, WBB1O #### The performing lab is in the report. #### VD25H #### [address] [place] [address] Platelet mean volume (Bld) [Entitic vol] 7.6 fL Normal 7.4-10.4 [facility] Comment on above: Performed By: #### M G3, LIPD2, IRON3, FERR3, HA1C2, FOLT3, TSH5, B12, CMP3, HEMOG #### [address] #### ZINC2, WBB1O #### The performing lab is in the report. #### VD25H #### [address] [place] [address] Platelets (Bld) [#/Vol] 358 10*3/uL Normal 140-440 [facility] Comment on above: Performed By: #### M G3, LIPD2, IRON3, FERR3, HA1C2, FOLT3, TSH5, B12, CMP3, HEMOG #### [address] #### ZINC2, WBB1O #### The performing lab is in the report. #### VD25H #### [place] [address] [place] [address] RBC (Bld) [#/Vol] 4.79 10*6/uL Normal 3.80-5.20 [facility] Comment on above: Performed By: #### M G3, LIPD2, IRON3, FERR3, HA1C2, FOLT3, TSH5, B12, CMP3, HEMOG #### [address] #### ZINC2, WBB1O #### The performing lab is in the report. #### VD25H #### [address] [place] [address] WBC (Bld) [#/Vol] 9.4 10*3/uL Normal 3.6-10.7 [facility] Comment on above: Performed By: #### M G3, LIPD2, IRON3, FERR3, HA1C2, FOLT3, TSH5, B12, CMP3, HEMOG #### [address] #### ZINC2, WBB1O #### The performing lab is in the report. #### VD25H #### [address] [place] [address] Ironon 02-06-2021 Iron [Mass/Vol] 49 ug/dL 37 - 170 ug/dL [facility] Test Performed by [address] LAB [facility] Iron, Totalon 02-06-2021 Iron, Total 49 ug/dL Normal 37-170 [facility] Comment on above: Performed By: #### M G3, LIPD2, IRON3, FERR3, HA1C2, FOLT3, TSH5, B12, CMP3, HEMOG #### [address] #### ZINC2, WBB1O #### The performing lab is in the report. #### VD25H #### [facility] [address] [place] [address] Lipid Panelon 02-06-2021 Chol/HDL 7 Normal [facility] Comment on above: Result Comment: Ref Range: < 3 Low Risk for CHD 3-6 Mod Risk for CHD > 6 High Risk for CHD Performed By: #### M G3, LIPD2, IRON3, FERR3, HA1C2, FOLT3, TSH5, B12, CMP3, HEMOG #### [address] #### ZINC2, WBB1O #### The performing lab is in the report. #### VD25H #### [address] [place] [address] Cholesterol in HDL [Mass/Vol] 32 mg/dL Low 40-60 [facility] Comment on above: Performed By: #### M G3, LIPD2, IRON3, FERR3, HA1C2, FOLT3, TSH5, B12, CMP3, HEMOG #### [address] #### ZINC2, WBB1O #### The performing lab is in the report. #### VD25H #### [address] [place] [address] Low Density Lipoprotein see below Abnormal <100 [facility] Comment on above: Result Comment: LDL unable to calculate, Trig >400 mg/dL Suggest ordering LDL-Chol,Direct. Performed By: #### M G3, LIPD2, IRON3, FERR3, HA1C2, FOLT3, TSH5, B12, CMP3, HEMOG #### [address] #### ZINC2, WBB1O #### The performing lab is in the report. #### VD25H #### [facility] [address] [place] [address] Cholesterol [Mass/Vol] 224 mg/dL Abnormal < 200 [facility] Comment on above: Performed By: #### M G3, LIPD2, IRON3, FERR3, HA1C2, FOLT3, TSH5, B12, CMP3, HEMOG #### [facility] [address] [place], [place] #### ZINC2, WBB1O #### The performing lab is in the report. #### VD25H #### [facility] [address] [place] [address] Triglyceride [Mass/Vol] 422 mg/dL Abnormal <150 [facility] Comment on above: Performed By: #### M G3, LIPD2, IRON3, FERR3, HA1C2, FOLT3, TSH5, B12, CMP3, HEMOG #### [address] #### ZINC2, WBB1O #### The performing lab is in the report. #### VD25H #### [facility] [address] [place] [address] Cholesterol [Mass/Vol] 224 mg/dL Abnormal <200 [facility] Cholesterol in HDL [Mass/Vol] 32 mg/dL Low 40 - 60 mg/dL [facility] Cholesterol.total/Cho lesterol in HDL [Mass ratio] 7 {ratio} [facility] Comment on above: Ref Range: < 3 Low Risk for CHD 3-6 Mod Risk for CHD > 6 High Risk for CHD LDL Cholesterol see below Abnormal <100 mg/dL [facility] Comment on above: LDL unable to calcul ate, Trig >400 mg/dL Suggest ordering LDL-Chol,Direct. Triglyceride [Mass/Vol] 422 mg/dL Abnormal <150 [facility] Magnesiumon 02-06-2021 Magnesium [Mass/Vol] 1.5 mg/dL Low 1.6-2.3 [facility] Comment on above: Performed By: #### M G3, LIPD2, IRON3, FERR3, HA1C2, FOLT3, TSH5, B12, CMP3, HEMOG #### [address] #### ZINC2, WBB1O #### The performing lab is in the report. #### VD25H #### [facility] [address] [place] [address] Magnesium [Mass/Vol] 1.5 mg/dL Low 1.6 - 2 .3 mg/dL [facility] No Panel Informationon 02-06 Test Performed by [facility], [address] [place] [id number] [facility] Test Performed by [facility], [address] [place] [id number] [facility] Interpretation and review of laboratory results Abnormal [facility] Test Performed by [facility], [address] [place] [address] [facility] TSH without Reflexon 021 TSH Qn 1.883 u[IU]/mL 0.465 - 4.680 u[IU]/mL [facility] Thyroid Stim. Hormoneon 01-21 Thyroid Stim. Hormone 1.883 u[IU]/mL Normal 0.46 5-4.68 0 [facility] Comment on above: Performed By: #### M G3, LIPD2, IRON3, FERR3, HA1C2, FOLT3, TSH5, B12, CMP3, HEMOG #### [address] [address] #### ZINC2, WBB1O #### The performing lab is in the report. #### VD25H #### [facility] [address] [place] [address] Vit D 25-OH, Totalon 021 Vit D 25-OH, Total 48 ng/mL Normal 30-100 [facility] Comment on above: Result Comment: Ther apy is based on measurement of Total 25- OHD with the following classification levels: Less than 20 ng/mL: Indicative of Vit D deficiency 20-30 ng/mL: Suggests Vit D insufficiency Optimal: Greater than or equal to 30 ng/mL Test performed by [employer], measuring Total Vitamin D, not individual fractions. Performed By: #### M G3, LIPD2, IRON3, FERR3, HA1C2, FOLT3, TSH5, B12, CMP3, HEMOG #### [facility] [address] [place] [address] #### ZINC2, WBB1O #### The performing lab is in the report. #### VD25H #### [facility] [address] [place] [address] Vitamin B12on 02-06-2021 Cobalamin (Vitamin B12) [Mass/Vol] 797 pg/mL Normal [id number] [facility] Comment on above: Performed By: #### M G3, LIPD2, IRON3, FERR3, HA1C2, FOLT3, TSH5, B12, CMP3, HEMOG #### [address] [address] #### ZINC2, WBB1O #### The performing lab is in the report. #### VD25H #### [facility] [address] [place] [address] Cobalamin (Vitamin B12) [Mass/Vol] 797 pg/mL 239 - 931 pg/mL [facility] Vitamin D 25 Hydroxyon 02-06 Vit D, 25-Hydroxy 48 ng/mL 30 - 100 ng/mL [facility] Comment on above: Therapy is based on measurement of Total 25-OHD with the following classification levels: Less than 20 ng/mL: Indicative of Vit D deficiency 20-30 ng/mL: Suggests Vit D insufficiency Optimal: Greater than or equal to 30 ng/mL Test performed by [employer], measuring Total Vitamin D, not individual fractions. Test Performed by [facility], [address] [place], [place], [place] [id number] [place] [address] LAB [facility] Initial Visit (Otolaryngolog y)on 06-07-2020 Initial Visit (Otolaryngology) No report was sent Normal Touchwork s No Panel Information [facility] Vital Signs Date Time Vital Sign Value Performing Clinician Facility 11-03-2024 11:43-0400 Body mass index (BMI) [Ratio] 37.42 kg/m2 Sudhir Talbot APRN.REHAB NURSE Work Phone: [facility] 11-03-2024 11:43-0400 Body weight 118.3 kg Sudhir Talbot MARBLE WORKER.REHAB NURSE Work Phone: [facility] 11-03-2024 11:43-0400 Diastolic blood pressure 67 mm[Hg] Sudhir Talbot MARBLE WORKER.REHAB NURSE Work Phone: [facility] 11-03-2024 11:43-0400 Heart rate 80 /min Sudhir Talbot MARBLE WORKER.REHAB NURSE Work Phone: [facility] 11-03-2024 11:43-0400 Respiratory rate 16 /min Sudhir Talbot MARBLE WORKER.REHAB NURSE Work Phone: [facility] 11-03-2024 11:43-0400 Systolic blood pressure 89 mm[Hg] Sudhir Talbot MARBLE WORKER.REHAB NURSE Work Phone: [facility] 09-16-2024 14:17-0400 Body mass index (BMI) [Ratio] 37.96 kg/m2 Pedro Petra MARBLE WORKER.NUTRITION SERVICES WORKER Work Phone: [facility] 09-16-2024 14:17-0400 Body temperature 98.2 [degF] Pedro Petra MARBLE WORKER.NUTRITION SERVICES WORKER Work Phone: [facility] 09-16-2024 14:17-0400 Body weight 120 kg Pedro Petra MARBLE WORKER.NUTRITION SERVICES WORKER Work Phone: [facility] 09-16-2024 14:17-0400 Diastolic blood pressure 80 mm[Hg] Pedro Petra MARBLE WORKER.NUTRITION SERVICES WORKER Work Phone: [facility] 09-16-2024 14:17-0400 Heart rate 80 /min Pedro Petra MARBLE WORKER.NUTRITION SERVICES WORKER Work Phone: [facility] 09-16-2024 14:17-0400 Respiratory rate 16 /min Pedro Petra MARBLE WORKER.NUTRITION SERVICES WORKER Work Phone: [facility] 09-16-2024 14:17-0400 Systolic blood pressure 114 mm[Hg] Pedro Petra MARBLE WORKER.NUTRITION SERVICES WORKER Work Phone: [facility] 07-12-2024 18:36-0400 Body height 177.8 cm Lulu Luciano MD Work Phone: [facility] 07-12-2024 18:36-0400 Body mass index (BMI) [Ratio] 36.69 kg/m2 Lulu Luciano MD Work Phone: [facility] 07-12-2024 18:36-0400 Body weight 116 kg Lulu Luciano MD Work Phone: [facility] 07-12-2024 18:36-0400 Diastolic blood pressure 82 mm[Hg] Lulu Luciano MD Work Phone: [facility] 07-12-2024 18:36-0400 Heart rate 77 /min Lulu Luciano MD Work Phone: [facility] 07-12-2024 18:36-0400 SaO2% (BldA) [Mass fraction] 97 % Lulu Luciano MD Work Phone: [facility] 07-12-2024 18:36-0400 Systolic blood pressure 116 mm[Hg] Lulu Luciano MD Work Phone: [facility] 07-06-2024 20:34-0400 Diastolic blood pressure 93 mm[Hg] Dr. Lulu Luciano MD Work Phone: [facility] 07-06-2024 20:34-0400 Systolic blood pressure 140 mm[Hg] Dr. Lulu Luciano MD Work Phone: [facility] 07-06-2024 18:03-0400 Body height [address] Lulu Luciano MD Work Phone: [facility] 07-06-2024 18:03-0400 Body mass index (BMI) [Ratio] 37.2 kg/m2 Dr. Lulu Luciano MD Work Phone: [facility] 07-06-2024 18:03-0400 Body temperature 98.5 [degF] Dr. Lulu Luciano MD Work Phone: [facility] 07-06-2024 18:03-0400 Body weight 117.[address] Lulu Luciano MD Work Phone: 8(126)302-454835 [place] [address] 07-06-2024 18:03-0400 Heart rate 74 /min Dr. Lulu Luciano MD Work Phone: 5(302)054-850735 [place] [address] 07-06-2024 18:03-0400 Respiratory rate 18 /min Dr. Lulu Luciano MD Work Phone: 1(285)692-279335 [place] [address] 07-06-2024 18:03-0400 SaO2% (BldA) [Mass fraction] 95 % Dr. Lulu Luciano MD Work Phone: 1(114)214-809835 [place] [address] 05-26-2024 15:35-0500 Body temperature 98.9 [degF] Dr. Lulu Luciano MD Work Phone: 0(515)633-191935 [place] [address] 05-26-2024 15:35-0500 Diastolic blood pressure 55 mm[Hg] Dr. Lulu Luciano MD Work Phone: 1(671)573-417135 [place] [address] 05-26-2024 15:35-0500 Heart rate 77 /min Dr. Lulu Luciano MD Work Phone: 2(848)184-651335 [place] [address] 05-26-2024 15:35-0500 Respiratory rate 16 /min Dr. Lulu Luciano MD Work Phone: 4(561)381-568135 [place] [address] 05-26-2024 15:35-0500 SaO2% (BldA) [Mass fraction] 98 % Dr. Lulu Luciano MD Work Phone: 1(012)254-200035 [place] [address] 05-26-2024 15:35-0500 Systolic blood pressure 128 mm[Hg] Dr. Lulu Luciano MD Work Phone: 7(799)576-464135 [place] [address] 05-26-2024 10:38-0500 Body height 177.[address] Lulu Luciano MD Work Phone: 0(267)196-926635 [place] [address] 05-26-2024 10:38-0500 Body mass index (BMI) [Ratio] 36.6 kg/m2 Dr. Lulu Luciano MD Work Phone: 6(616)162-610935 [place] [address] 05-26-2024 10:38-0500 Body weight [address] Lulu Luciano MD Work Phone: [facility] 05-14-2024 23:08-0500 Diastolic Blood Pressure Non-Invasive 95 mm[Hg] NIDAL CHOUJAA DO [facility] 05-14-2024 23:08-0500 Heart rate 85 /min NIDAL CHOUJAA DO [facility] 05-14-2024 23:08-0500 Reason For Taking VItal Signs NIDAL CHOUJAA DO [facility] 05-14-2024 23:08-0500 Respiratory rate 16 /min NIDAL CHOUJAA DO [facility] 05-14-2024 23:08-0500 Systolic Blood Pressure Non-Invasive 139 mm[Hg] NIDAL CHOUJAA DO [facility] 05-14-2024 22:41-0500 Diastolic Blood Pressure Non-Invasive 100 mm[Hg] NIDAL CHOUJAA DO [facility] 05-14-2024 22:41-0500 Heart rate 96 /min NIDAL CHOUJAA DO [facility] 05-14-2024 22:41-0500 Reason For Taking VItal Signs NIDAL CHOUJAA DO [facility] 05-14-2024 22:41-0500 Respiratory rate 16 /min NIDAL CHOUJAA DO [facility] 05-14-2024 22:41-0500 Systolic Blood Pressure Non-Invasive 144 mm[Hg] NIDAL CHOUJAA DO [facility] 05-14-2024 22:14-0500 Body temperature 99.32 [degF] NIDAL CHOUJAA DO [facility] 05-14-2024 22:14-0500 Diastolic Blood Pressure Non-Invasive 106 mm[Hg] NIDAL CHOUJAA DO [facility] 05-14-2024 22:14-0500 Heart rate 103 /min NIDAL CHOUJAA DO [facility] 05-14-2024 22:14-0500 Respiratory rate 20 /min NIDAL CHOUJAA DO [facility] 05-14-2024 22:14-0500 Systolic Blood Pressure Non-Invasive 136 mm[Hg] NIDAL CHOUJAA DO [facility] 04-22-2024 13:32-0500 Body mass index (BMI) [Ratio] 35.9 kg/m2 Yanni Malone MD Work Phone: [facility] 04-22-2024 13:32-0500 Body weight 113.49 kg Yanni Malone MD Work Phone: [facility] 04-22-2024 13:32-0500 Diastolic blood pressure 78 mm[Hg] Yanni Malone MD Work Phone: [facility] 04-22-2024 13:32-0500 Heart rate 90 /min Yanni Malone MD Work Phone: [facility] 04-22-2024 13:32-0500 Respiratory rate 16 /min Yanni Malone MD Work Phone: [facility] 04-22-2024 13:32-0500 SaO2% (BldA) [Mass fraction] 97 % Yanni Malone MD Work Phone: [facility] 04-22-2024 13:32-0500 Systolic blood pressure 126 mm[Hg] Yanni Malone MD Work Phone: [facility] 04-15-2024 15:49-0500 Body temperature 97.4 [degF] Dr. Lulu Luciano MD Work Phone: 0(166)164-829735 [place] [address] 04-15-2024 15:49-0500 Diastolic blood pressure 90 mm[Hg] Dr. Lulu Luciano MD Work Phone: 4(569)035-129335 [place] [address] 04-15-2024 15:49-0500 Heart rate 72 /min Dr. Lulu Luciano MD Work Phone: 9(227)945-573635 [place] [address] 04-15-2024 15:49-0500 Respiratory rate 16 /min Dr. Lulu Luciano MD Work Phone: 1(152)621-837435 [place] [address] 04-15-2024 15:49-0500 SaO2% (BldA) [Mass fraction] 96 % Dr. Lulu Luciano MD Work Phone: 1(104)636-656935 [place] [address] 04-15-2024 15:49-0500 Systolic blood pressure 149 mm[Hg] Dr. Lulu Luciano MD Work Phone: 9(684)020-352535 [place] [address] 04-15-2024 13:30-0500 Inhaled oxygen flow rate 4 L/min Dr. Lulu Luciano MD Work Phone: 8(416)530-740935 [place] [address] 04-15-2024 08:11-0500 Body mass index (BMI) [Ratio] 36.3 kg/m2 Dr. Lulu Luciano MD Work Phone: 8(706)493-451835 [place] [address] 04-15-2024 08:11-0500 Body weight [address] Lulu Luciano MD Work Phone: 9(963)419-268535 [place] [address] 03-31-2024 09:31-0500 Body mass index (BMI) [Ratio] 35.43 kg/m2 Sudhir Talbot APRN.REHAB NURSE Work Phone: [facility] 03-31-2024 09:31-0500 Body weight 112 kg Sudhir Talbot APRN.REHAB NURSE Work Phone: 7(459)232-433737 [place] [address] 03-31-2024 09:31-0500 Diastolic blood pressure 70 mm[Hg] Sudhir Talbot MARBLE WORKER.REHAB NURSE Work Phone: [facility] 03-31-2024 09:31-0500 Heart rate 74 /min Sudhir Fernandezs MARBLE WORKER.REHAB NURSE Work Phone: [facility] 03-31-2024 09:31-0500 Respiratory rate 16 /min Sudhir Fernandezs MARBLE WORKER.REHAB NURSE Work Phone: [facility] 03-31-2024 09:31-0500 Systolic blood pressure 102 mm[Hg] Sudhir Fernandezs MARBLE WORKER.REHAB NURSE Work Phone: [facility] 03-30-2024 11:02-0500 Body mass index (BMI) [Ratio] 35.73 kg/m2 Yanni Malone MD Work Phone: [facility] 03-30-2024 11:02-0500 Body weight 112.95 kg Yanni Malone MD Work Phone: [facility] 03-30-2024 11:02-0500 Diastolic blood pressure 68 mm[Hg] Yanni Malone MD Work Phone: [facility] 03-30-2024 11:02-0500 Systolic blood pressure 108 mm[Hg] Yanni Malone MD Work Phone: [facility] 03-29-2024 13:46-0500 Body mass index (BMI) [Ratio] 35.73 kg/m2 Irasema Blood MD Work Phone: [facility] 03-29-2024 13:46-0500 Body weight 112.95 kg Irasema Blood MD Work Phone: [facility] 03-29-2024 13:46-0500 Diastolic blood pressure 70 mm[Hg] Irasema Blood MD Work Phone: [facility] 03-29-2024 13:46-0500 Systolic blood pressure 122 mm[Hg] Irasema Blood MD Work Phone: [facility] 03-21-2024 13:23-0500 Body mass index (BMI) [Ratio] 35.87 kg/m2 Jing Virgen MARBLE WORKER.CNM Work Phone: [facility] 03-21-2024 13:23-0500 Body weight 113.4 kg Jing Virgen MARBLE WORKER.CNM Work Phone: [facility] 03-21-2024 13:23-0500 Diastolic blood pressure 76 mm[Hg] Jing Virgen MARBLE WORKER.CNM Work Phone: [facility] 03-21-2024 13:23-0500 Systolic blood pressure 120 mm[Hg] Jing [facility] MARBLE WORKER.CNM Work Phone: 8(370)465-859437 [place] [address] 02-25-2024 10:49-0500 Body mass index (BMI) [Ratio] 35.2 kg/m2 Dr. Lulu Luciano MD Work Phone: 7(055)918-373048 [place] [address] 02-25-2024 10:49-0500 Body temperature 98.5 [degF] Dr. Lulu Luciano MD Work Phone: 8(624)435-796835 [place] [address] 02-25-2024 10:49-0500 Body weight 111.[address] Lulu Luciano MD Work Phone: 4(578)650-902835 [place] [address] 02-25-2024 10:49-0500 Diastolic blood pressure 74 mm[Hg] Dr. Lulu Luciano MD Work Phone: 8(067)950-784135 [place] [address] 02-25-2024 10:49-0500 Heart rate 66 /min Dr. Lulu Luciano MD Work Phone: 8(909)891-820548 [place] [address] 02-25-2024 10:49-0500 Respiratory rate 16 /min Dr. Lulu Luciano MD Work Phone: 9(327)305-547148 [place] [address] 02-25-2024 10:49-0500 SaO2% (BldA) [Mass fraction] 97 % Dr. Lulu Luciano MD Work Phone: 5(821)858-961635 [place] [address] 02-25-2024 10:49-0500 Systolic blood pressure 110 mm[Hg] Dr. Lulu Luciano MD Work Phone: 3(017)359-254248 [place] [address] 02-09-2024 17:48-0500 Body mass index (BMI) [Ratio] 35.43 kg/m2 Lulu Luciano MD Work Phone: [facility] 02-09-2024 17:48-0500 Body weight 112 kg Lulu Luciano MD Work Phone: [facility] 02-09-2024 17:48-0500 Diastolic blood pressure 68 mm[Hg] Lulu Luciano MD Work Phone: [facility] 02-09-2024 17:48-0500 Heart rate 68 /min Lulu Luciano MD Work Phone: [facility] 02-09-2024 17:48-0500 Respiratory rate 14 /min Lulu Luciano MD Work Phone: [facility] 02-09-2024 17:48-0500 Systolic blood pressure 112 mm[Hg] Lulu Luciano MD Work Phone: [facility] 02-05-2024 11:41-0500 Body mass index (BMI) [Ratio] 35.71 kg/m2 Sudhir Talbot MARBLE WORKER.REHAB NURSE Work Phone: [facility] 02-05-2024 11:41-0500 Body temperature 98.49 [degF] Sudhir Talbot MARBLE WORKER.REHAB NURSE Work Phone: [facility] 02-05-2024 11:41-0500 Body weight 112.9 kg Sudhir Talbot MARBLE WORKER.REHAB NURSE Work Phone: [facility] 02-05-2024 11:41-0500 Diastolic blood pressure 72 mm[Hg] Sudhir Talbot MARBLE WORKER.REHAB NURSE Work Phone: [facility] 02-05-2024 11:41-0500 Heart rate 77 /min Sudhir Talbot MARBLE WORKER.REHAB NURSE Work Phone: [facility] 02-05-2024 11:41-0500 Respiratory rate 16 /min Sudhir Talbot MARBLE WORKER.REHAB NURSE Work Phone: [facility] 02-05-2024 11:41-0500 SaO2% (BldA) [Mass fraction] 97 % Sudhir Talbot MARBLE WORKER.REHAB NURSE Work Phone: [facility] 02-05-2024 11:41-0500 Systolic blood pressure 110 mm[Hg] Sudhir Talbot APRN.REHAB NURSE Work Phone: [facility] 01-27-2024 12:04-0500 Body mass index (BMI) [Ratio] 35.2 kg/m2 Dr. Lulu Luciano MD Work Phone: [facility] 01-27-2024 12:04-0500 Body temperature 98.2 [degF] Dr. Lulu Luciano MD Work Phone: [facility] 01-27-2024 12:04-0500 Body weight 111.[address] Lulu Luciano MD Work Phone: [facility] 01-27-2024 12:04-0500 Diastolic blood pressure 72 mm[Hg] Dr. Lulu Luciano MD Work Phone: [facility] 01-27-2024 12:04-0500 Heart rate 78 /min Dr. Lulu Luciano MD Work Phone: [facility] 01-27-2024 12:04-0500 Respiratory rate 16 /min Dr. Lulu Luciano MD Work Phone: [facility] 01-27-2024 12:04-0500 SaO2% (BldA) [Mass fraction] 96 % Dr. Lulu Luciano MD Work Phone: [facility] 01-27-2024 12:04-0500 Systolic blood pressure 126 mm[Hg] Dr. Lulu Luciano MD Work Phone: [facility] 12-04-2023 02:39-0400 Body height 177.8 cm [facility] Work Phone: [facility] 12-04-2023 02:39-0400 Body mass index (BMI) [Ratio] 35.02 kg/m2 [facility] Work Phone: [facility] 12-04-2023 02:39-0400 Body weight 110.7 kg [facility] Work Phone: [facility] 11-20-2023 13:27-0400 Body mass index (BMI) [Ratio] 35.04 kg/m2 Corie Li MARBLE WORKER.NUTRITION SERVICES WORKER Work Phone: [facility] 11-20-2023 13:27-0400 Body weight 110.77 kg Corie [place] MARBLE WORKER.NUTRITION SERVICES WORKER Work Phone: [facility] 11-20-2023 13:27-0400 Diastolic blood pressure 76 mm[Hg] Corie Li MARBLE WORKER.NUTRITION SERVICES WORKER Work Phone: [facility] 11-20-2023 13:27-0400 Systolic blood pressure 130 mm[Hg] Corie [place] MARBLE WORKER.NUTRITION SERVICES WORKER Work Phone: [facility] 11-17-2023 13:22-0400 Diastolic blood pressure 78 mm[Hg] Pedro Petra MARBLE WORKER.NUTRITION SERVICES WORKER Work Phone: [facility] 11-17-2023 13:22-0400 Systolic blood pressure 126 mm[Hg] Pedro Petra MARBLE WORKER.NUTRITION SERVICES WORKER Work Phone: [facility] 11-17-2023 13:20-0400 Body mass index (BMI) [Ratio] 34.48 kg/m2 Pedro Petra MARBLE WORKER.NUTRITION SERVICES WORKER Work Phone: [facility] 11-17-2023 13:20-0400 Body weight 109 kg Pedro Petra MARBLE WORKER.NUTRITION SERVICES WORKER Work Phone: [facility] 11-17-2023 13:20-0400 Heart rate 73 /min Pedro Petra MARBLE WORKER.NUTRITION SERVICES WORKER Work Phone: [facility] 11-17-2023 13:20-0400 SaO2% (BldA) [Mass fraction] 98 % Pedro Petra MARBLE WORKER.NUTRITION SERVICES WORKER Work Phone: [facility] 11-05-2023 14:51-0400 Body mass index (BMI) [Ratio] 35.9 kg/m2 Serenity Mena MARBLE WORKER.NUTRITION SERVICES WORKER Work Phone: [facility] 11-05-2023 14:51-0400 Body weight 113.5 kg Serenity Mena MARBLE WORKER.NUTRITION SERVICES WORKER Work Phone: [facility] 11-05-2023 14:51-0400 Heart rate 97 /min Serenity Mena MARBLE WORKER.NUTRITION SERVICES WORKER Work Phone: [facility] 11-05-2023 14:51-0400 SaO2% (BldA) [Mass fraction] 95 % Serenity Mena MARBLE WORKER.NUTRITION SERVICES WORKER Work Phone: [facility] 11-05-2023 12:50-0400 Body height 177.8 cm [facility] 11-05-2023 12:50-0400 Body mass index (BMI) [Ratio] 34.44 kg/m2 [facility] 11-05-2023 12:50-0400 Body weight 108.86 kg [facility] 10-09-2023 15:38-0400 Diastolic blood pressure 74 mm[Hg] Pedro Petra MARBLE WORKER.NUTRITION SERVICES WORKER Work Phone: [facility] 10-09-2023 15:38-0400 Systolic blood pressure 110 mm[Hg] Pedro Petra MARBLE WORKER.NUTRITION SERVICES WORKER Work Phone: [facility] 10-09-2023 15:35-0400 Body mass index (BMI) [Ratio] 33.47 kg/m2 Pedro Petra MARBLE WORKER.NUTRITION SERVICES WORKER Work Phone: [facility] 10-09-2023 15:35-0400 Body weight 108.86 kg Pedro Petra MARBLE WORKER.NUTRITION SERVICES WORKER Work Phone: [facility] 10-09-2023 15:35-0400 Heart rate 85 /min Pedro Petra MARBLE WORKER.NUTRITION SERVICES WORKER Work Phone: [facility] 10-09-2023 15:35-0400 SaO2% (BldA) [Mass fraction] 98 % Pedro Petra MARBLE WORKER.NUTRITION SERVICES WORKER Work Phone: [facility] 07-07-2023 18:16-0400 Body mass index (BMI) [Ratio] 35.15 kg/m2 Lulu Luciano MD Work Phone: [facility] 07-07-2023 18:16-0400 Body temperature 96.49 [degF] Lulu Luciano MD Work Phone: [facility] 07-07-2023 18:16-0400 Body weight 114.31 kg Lulu Luciano MD Work Phone: [facility] 07-07-2023 18:16-0400 Diastolic blood pressure 78 mm[Hg] Lulu Luciano MD Work Phone: [facility] 07-07-2023 18:16-0400 Heart rate 85 /min Lulu Luciano MD Work Phone: [facility] 07-07-2023 18:16-0400 Respiratory rate 18 /min Lulu Luciano MD Work Phone: [facility] 07-07-2023 18:16-0400 SaO2% (BldA) [Mass fraction] 96 % Lulu Luciano MD Work Phone: [facility] 07-07-2023 18:16-0400 Systolic blood pressure 118 mm[Hg] Lulu Luciano MD Work Phone: [facility] 05-04-2023 13:12-0500 Diastolic blood pressure 90 mm[Hg] Pedro Petra MARBLE WORKER.NUTRITION SERVICES WORKER Work Phone: [facility] 05-04-2023 13:12-0500 Heart rate 64 /min Pedro Petra MARBLE WORKER.NUTRITION SERVICES WORKER Work Phone: [facility] 05-04-2023 13:12-0500 Respiratory rate 16 /min Pedro Petra MARBLE WORKER.NUTRITION SERVICES WORKER Work Phone: [facility] 05-04-2023 13:12-0500 Systolic blood pressure 140 mm[Hg] Pedro Petra MARBLE WORKER.NUTRITION SERVICES WORKER Work Phone: [facility] 04-14-2023 11:52-0500 Body height 180.[address] Lulu Luciano Work Phone: [facility] 04-14-2023 11:52-0500 Body mass index (BMI) [Ratio] 34.2 kg/m2 Dr. Lulu Luciano Work Phone: [facility] 04-14-2023 11:52-0500 Body temperature 98 [degF] Dr. Lulu Luciano Work Phone: [facility] 04-14-2023 11:52-0500 Body weight 111.[address] Lulu Luciano Work Phone: 7(789)325-224748 [place] [address] 04-14-2023 11:52-0500 Diastolic blood pressure 82 mm[Hg] Dr. Lulu Luciano Work Phone: 1(229)067-007948 [place] [address] 04-14-2023 11:52-0500 Heart rate 68 /min Dr. Lulu Luciano Work Phone: 8(892)057-372648 [place] [address] 04-14-2023 11:52-0500 Respiratory rate 14 /min Dr. Lulu Luciano Work Phone: 4(205)524-556848 [place] [address] 04-14-2023 11:52-0500 SaO2% (BldA) [Mass fraction] 98 % Dr. Lulu Luciano Work Phone: [facility] 04-14-2023 11:52-0500 Systolic blood pressure 134 mm[Hg] Dr. Lulu Luciano Work Phone: [facility] 03-28-2023 11:14-0500 Diastolic Blood Pressure Non-Invasive 64 mm[Hg] MAMADOU IBARRA MD [facility] 03-28-2023 11:14-0500 Heart rate 60 /min MAMADOU IBARRA MD [facility] 03-28-2023 11:14-0500 Respiratory rate 16 /min MAMADOU IBARRA MD [facility] 03-28-2023 11:14-0500 Systolic Blood Pressure Non-Invasive 112 mm[Hg] MAMADOU IBARRA MD [facility] 03-28-2023 08:57-0500 Blood Pressure Location MAMADOU IBARRA MD [facility] 03-28-2023 08:57-0500 Body temperature 96.98 [degF] MAMADOU IBARRA MD [facility] 03-28-2023 08:57-0500 Diastolic Blood Pressure Non-Invasive 63 mm[Hg] MAMADOU IBARRA MD [facility] 03-28-2023 08:57-0500 Heart rate 64 /min MAMADOU IBARRA MD [facility] 03-28-2023 08:57-0500 Systolic Blood Pressure Non-Invasive 101 mm[Hg] MAMADOU IBARRA MD [facility] 03-14-2023 19:16-0500 Blood Pressure Cuff Size DR REGGIE JOHNSON DO [facility] 03-14-2023 19:16-[address] REGGIE JOHNSON DO [facility] 03-14-2023 19:16-[address] REGGIE JOHNSON DO [facility] 03-14-2023 19:16-0500 Body temperature 98.6 [degF] DR REGGIE JOHNSON DO [facility] 03-14-2023 19:16-0500 Diastolic Blood Pressure Non-Invasive 59 mm[Hg] DR REGGIE JOHNSON DO [facility] 03-14-2023 19:16-0500 Heart rate 58 /min DR REGGIE JOHNSON DO [facility] 03-14-2023 19:16-0500 Respiratory rate 16 /min DR REGGIE JOHNSON DO [facility] 03-14-2023 19:16-0500 Systolic Blood Pressure Non-Invasive 91 mm[Hg] DR REGGIE JOHNSON DO [facility] 01-26-2023 10:45-0500 Body weight 117.94 kg Pedro Petra MARBLE WORKER.NUTRITION SERVICES WORKER Work Phone: [facility] 01-26-2023 10:45-0500 Diastolic blood pressure 70 mm[Hg] Pedro Petra MARBLE WORKER.NUTRITION SERVICES WORKER Work Phone: [facility] 01-26-2023 10:45-0500 Heart rate 67 /min Pedro Petra MARBLE WORKER.NUTRITION SERVICES WORKER Work Phone: [facility] 01-26-2023 10:45-0500 SaO2% (BldA) [Mass fraction] 98 % Pedro Petra MARBLE WORKER.NUTRITION SERVICES WORKER Work Phone: [facility] 01-26-2023 10:45-0500 Systolic blood pressure 106 mm[Hg] Pedro Petra MARBLE WORKER.NUTRITION SERVICES WORKER Work Phone: [facility] 11-07-2022 16:58-0400 Body weight 125.65 kg Corie [place] MARBLE WORKER.NUTRITION SERVICES WORKER Work Phone: [facility] 11-07-2022 16:58-0400 Diastolic blood pressure 86 mm[Hg] Corie Li MARBLE WORKER.NUTRITION SERVICES WORKER Work Phone: [facility] 11-07-2022 16:58-0400 Systolic blood pressure 120 mm[Hg] Corie Li MARBLE WORKER.NUTRITION SERVICES WORKER Work Phone: [facility] 10-28-2022 13:21-0400 Body weight 126.01 kg Pedro Petra MARBLE WORKER.NUTRITION SERVICES WORKER Work Phone: [facility] 10-17-2022 10:53-0400 Body temperature 96.4 [degF] Lulu Luciano MD Work Phone: [facility] 10-17-2022 10:53-0400 Body weight 123.38 kg Lulu Luciano MD Work Phone: [facility] 10-17-2022 10:53-0400 Diastolic blood pressure 86 mm[Hg] Lulu Luciano MD Work Phone: [facility] 10-17-2022 10:53-0400 Heart rate 75 /min Lulu Luciano MD Work Phone: [facility] 10-17-2022 10:53-0400 Respiratory rate 18 /min Lluu Luciano MD Work Phone: [facility] 10-17-2022 10:53-0400 SaO2% (BldA) [Mass fraction] 98 % Lulu Luciano MD Work Phone: [facility] 10-17-2022 10:53-0400 Systolic blood pressure 122 mm[Hg] Lulu Luciano MD Work Phone: [facility] 09-30-2022 08:43-0400 Body temperature 98.6 [degF] Jt Evans MD Work Phone: [facility] 09-30-2022 08:43-0400 Body weight 127.01 kg Jt Evans MD Work Phone: [facility] 09-30-2022 08:43-0400 Diastolic blood pressure 90 mm[Hg] Jt Evans MD Work Phone: [facility] 09-30-2022 08:43-0400 Heart rate 87 /min Jt Evans MD Work Phone: [facility] 09-30-2022 08:43-0400 SaO2% (BldA) [Mass fraction] 98 % Jt Evans MD Work Phone: [facility] 09-30-2022 08:43-0400 Systolic blood pressure 128 mm[Hg] Jt Evans MD Work Phone: [facility] 09-30-2022 07:48-0400 Diastolic blood pressure 90 mm[Hg] Pedro Patricia APRN.CNP Work Phone: [facility] 09-30-2022 07:48-0400 Systolic blood pressure 128 mm[Hg] Pedro Petra MARBLE WORKER.NUTRITION SERVICES WORKER Work Phone: [facility] 09-30-2022 07:47-0400 Body weight 127.01 kg Pedro Petra MARBLE WORKER.NUTRITION SERVICES WORKER Work Phone: [facility] 09-30-2022 07:47-0400 Heart rate 87 /min Pedro Petra MARBLE WORKER.NUTRITION SERVICES WORKER Work Phone: [facility] 09-30-2022 07:47-0400 SaO2% (BldA) [Mass fraction] 98 % Pedro Petra MARBLE WORKER.NUTRITION SERVICES WORKER Work Phone: [facility] 09-15-2022 15:15-0400 Body temperature 97.3 [degF] Jt Evans MD Work Phone: [facility] 09-15-2022 15:15-0400 Diastolic blood pressure 78 mm[Hg] Jt Evans MD Work Phone: [facility] 09-15-2022 15:15-0400 Heart rate 74 /min Jt Evans MD Work Phone: [facility] 09-15-2022 15:15-0400 Respiratory rate 18 /min Jt Evans MD Work Phone: [facility] 09-15-2022 15:15-0400 SaO2% (BldA) [Mass fraction] 96 % Jt Evans MD Work Phone: [facility] 09-15-2022 15:15-0400 Systolic blood pressure 116 mm[Hg] Jt Evans MD Work Phone: [facility] 07-28-2022 16:39-0400 Body temperature 97.3 [degF] Dr. Lulu Luciano Work Phone: [facility] 07-28-2022 16:39-0400 Diastolic blood pressure 102 mm[Hg] Dr. Lulu Luciano Work Phone: [facility] 07-28-2022 16:39-0400 Heart rate 84 /min Dr. Lulu Luciano Work Phone: [facility] 07-28-2022 16:39-0400 Respiratory rate 16 /min Dr. Lulu Luciano Work Phone: [facility] 07-28-2022 16:39-0400 SaO2% (BldA) [Mass fraction] 97 % Dr. Lulu Luciano Work Phone: [facility] 07-28-2022 16:39-0400 Systolic blood pressure 142 mm[Hg] Dr. Lulu Luciano Work Phone: 5(806)[phone] [place] [address] 07-24-2022 10:48-0400 Body height 180.[address] Lulu Luciano Work Phone: 4(161)[phone] [place] [address] 07-24-2022 10:48-0400 Body mass index (BMI) [Ratio] 39.4 kg/m2 Dr. Lulu Luciano Work Phone: 3(406)[phone] [place] [address] 07-24-2022 10:48-0400 Body temperature 97.5 [degF] Dr. Lulu Luciano Work Phone: 5(933)[phone] [place] [address] 07-24-2022 10:48-0400 Body weight 128.[address] Lulu Luciano Work Phone: [facility] 07-24-2022 10:48-0400 Diastolic blood pressure 99 mm[Hg] Dr. Lulu Luciano Work Phone: [facility] 07-24-2022 10:48-0400 Heart rate 97 /min Dr. Lulu Luciano Work Phone: 5(865)[phone] [place] [address] 07-24-2022 10:48-0400 Respiratory rate 18 /min Dr. Lulu Luciano Work Phone: [facility] 07-24-2022 10:48-0400 Systolic blood pressure 146 mm[Hg] Dr. Lulu Luciano Work Phone: [facility] 07-17-2022 09:36-0400 Body height 180.3 cm Jt Evans MD Work Phone: [facility] 07-17-2022 09:36-0400 Body temperature 97.2 [degF] Jt Evans MD Work Phone: [facility] 07-17-2022 09:36-0400 Body weight 127.01 kg tJ Evans MD Work Phone: [facility] 07-17-2022 09:36-0400 Diastolic blood pressure 84 mm[Hg] Jt Evans MD Work Phone: [facility] 07-17-2022 09:36-0400 Heart rate 101 /min Jt Evans MD Work Phone: [facility] 07-17-2022 09:36-0400 SaO2% (BldA) [Mass fraction] 95 % Jt Evans MD Work Phone: [facility] 07-17-2022 09:36-0400 Systolic blood pressure 130 mm[Hg] Jt Evans MD Work Phone: [facility] 07-06-2022 07:30-[address] Cuff Size DR GÓMEZ MEYERS MD [facility] 07-06-2022 07:30-[address] GÓMEZ MEYERS MD [facility] 07-06-2022 07:30-[address] GÓMEZ MEYERS MD [facility] 07-06-2022 07:30-0400 Body height 180.[address] GÓMEZ MEYERS MD [facility] 07-06-2022 07:30-0400 Body temperature 97.16 [degF] DR GÓMEZ MEYERS MD [facility] 07-06-2022 07:30-0400 Body weight 127.[address] GÓMEZ MEYERS MD [facility] 07-06-2022 07:30-0400 Diastolic Blood Pressure Non-Invasive [address] GÓMEZ MEYERS MD [facility] 07-06-2022 07:30-0400 Heart rate 80 /min DR GÓMEZ MEYERS MD [facility] 07-06-2022 07:30-0400 Respiratory rate 16 /min DR GÓMEZ MEYERS MD [facility] 07-06-2022 07:30-0400 Systolic Blood Pressure Non-Invasive [address] GÓMEZ MEYERS MD [facility] 06-17-2022 09:18-0400 Body weight 127.91 kg Anne-Marie Gilliam APRN.NUTRITION SERVICES WORKER Work Phone: [facility] 06-17-2022 09:18-0400 Diastolic blood pressure 82 mm[Hg] Anne-Marie Gilliam APRN.NUTRITION SERVICES WORKER Work Phone: [facility] 06-17-2022 09:18-0400 Systolic blood pressure 118 mm[Hg] Anne-Marie Gilliam APRN.NUTRITION SERVICES WORKER Work Phone: [facility] 05-26-2022 21:37-0500 Body temperature 97.88 [degF] ROC RAYT DO [facility] 05-26-2022 21:37-0500 Diastolic Blood Pressure Non-Invasive 96 1 ROC LEOMELT DO [facility] 05-26-2022 21:37-0500 Heart rate 100 /min ROC FROMMELT DO [facility] 05-26-2022 21:37-0500 Respiratory rate 18 /min ROC FROMMELT DO [facility] 05-26-2022 21:37-0500 Systolic Blood Pressure Non-Invasive 141 1 ROC RAYT DO [facility] 05-15-2022 04:38-0500 Blood Pressure Location ROC RAYT DO [facility] 05-15-2022 04:38-0500 Blood Pressure Method ROC VALENTINE D O [facility] 05-15-2022 04:38-0500 Body height 180.3 cm ROC RAYT DO [facility] 05-15-2022 04:38-0500 Body temperature 98.24 [degF] ROC RAYT DO [facility] 05-15-2022 04:38-0500 Body weight 122.7 kg ROC RAYT DO [facility] 05-15-2022 04:38-0500 Diastolic Blood Pressure Non-Invasive 83 1 ROC RAYT DO [facility] 05-15-2022 04:38-0500 Heart rate 93 /min ROC VALENTINE DO [facility] 05-15-2022 04:38-0500 Respiratory rate 20 /min ROC RAYT DO [facility] 05-15-2022 04:38-0500 Systolic Blood Pressure Non-Invasive 124 1 ROC RAYT DO [facility] 04-25-2022 09:44-0500 Body weight 125.19 kg Pedro Shankarr MARBLE WORKER.NUTRITION SERVICES WORKER Work Phone: [facility] 04-25-2022 09:44-0500 Diastolic blood pressure 88 mm[Hg] Pedro Petra MARBLE WORKER.NUTRITION SERVICES WORKER Work Phone: [facility] 04-25-2022 09:44-0500 Heart rate 97 /min Pedro Petra MARBLE WORKER.NUTRITION SERVICES WORKER Work Phone: [facility] 04-25-2022 09:44-0500 SaO2% (BldA) [Mass fraction] 95 % Pedro Shankarr MARBLE WORKER.NUTRITION SERVICES WORKER Work Phone: [facility] 04-25-2022 09:44-0500 Systolic blood pressure 128 mm[Hg] Pedro Patricia MARBLE WORKER.NUTRITION SERVICES WORKER Work Phone: [facility] 04-17-2022 09:18-0500 Blood Pressure Location DIOMEDES SUPPAN DPM [facility] 04-17-2022 09:18-0500 Body height 180.3 cm DIOMEDES SUPPAN DPM [facility] 04-17-2022 09:18-0500 Body weight 122.7 kg DIOMEDES SUPPAN DPM [facility] 04-17-2022 09:18-0500 Diastolic Blood Pressure Non-Invasive 82 1 DIOMEDES SUPPAN DPM [facility] 04-17-2022 09:18-0500 Heart rate 78 /min DIOMEDES SUPPAN DPM [facility] 04-17-2022 09:18-0500 Respiratory rate 20 /min DIOMEDES SUPPAN DPM [facility] 04-17-2022 09:18-0500 Systolic Blood Pressure Non-Invasive 122 1 DIOMEDES SUPPAN DPM [facility] 04-11-2022 07:25-0500 Diastolic Blood Pressure Non-Invasive 93 1 LUX HODGE MD [facility] 04-11-2022 07:25-0500 Heart rate 82 /min LUX HODGE MD [facility] 04-11-2022 07:25-0500 Respiratory rate 16 /min LUX HODGE MD [facility] 04-11-2022 07:25-0500 Systolic Blood Pressure Non-Invasive 131 1 LUX HODGE MD [facility] 04-11-2022 06:33-0500 Blood Pressure Cuff Size LUX HODGE MD [facility] 04-11-2022 06:33-0500 Blood Pressure Location LUX HODGE MD [facility] 04-11-2022 06:33-0500 Blood Pressure Method LUX HODGE MD [facility] 04-11-2022 06:33-0500 Body height 180.3 cm LUX HODGE MD [facility] 04-11-2022 06:33-0500 Body temperature 97.88 [degF] LUX HODGE MD [facility] 04-11-2022 06:33-0500 Body weight 122.7 kg LUX HODGE MD [facility] 04-11-2022 06:33-0500 Diastolic Blood Pressure Non-Invasive 92 1 LUX HODGE MD [facility] 04-11-2022 06:33-0500 Heart rate 92 /min LUX HODGE MD [facility] 04-11-2022 06:33-0500 Respiratory rate 18 /min LUX HODGE MD [facility] 04-11-2022 06:33-0500 Systolic Blood Pressure Non-Invasive 154 1 LUX HODGE MD [facility] 03-18-2022 20:09-0500 Body temperature 98.42 [degF] LUX HODGE MD [facility] 03-18-2022 20:09-0500 Diastolic Blood Pressure Non-Invasive 84 1 LUX HODGE MD [facility] 03-18-2022 20:09-0500 Heart rate 87 /min LUX HODGE MD [facility] 03-18-2022 20:09-0500 Respiratory rate 18 /min LUX HODGE MD [facility] 03-18-2022 20:09-0500 Systolic Blood Pressure Non-Invasive 121 1 LUX HODGE MD [facility] 03-01-2022 23:15-0500 Body height 180.3 cm STELLA REICHFIELD DO [facility] 03-01-2022 23:15-0500 Body temperature 99.32 [degF] STELLA REICHFIELD DO [facility] 03-01-2022 23:15-0500 Body weight 125 kg STELLA REICHFIELD DO [facility] 03-01-2022 23:15-0500 Diastolic Blood Pressure Non-Invasive 88 1 STELLA REICHFIELD DO [facility] 03-01-2022 23:15-0500 Heart rate 91 /min STELLA REICHFIELD DO [facility] 03-01-2022 23:15-0500 Respiratory rate 18 /min STELLA REICHFIELD DO [facility] 03-01-2022 23:15-0500 Systolic Blood Pressure Non-Invasive 141 1 STELLA PETERS DO [facility] 01-31-2022 11:23-0500 Body weight 126.01 kg Anca Wood MD Work Phone: [facility] 01-31-2022 11:23-0500 Diastolic blood pressure 81 mm[Hg] Anca Wood MD Work Phone: [facility] 01-31-2022 11:23-0500 Heart rate 85 /min Anca Wood MD Work Phone: [facility] 01-31-2022 11:23-0500 Systolic blood pressure 121 mm[Hg] Anca Wood MD Work Phone: [facility] 10-24-2021 16:37-0400 Body weight 115.08 kg Larry Ahn MD Work Phone: [facility] 10-24-2021 16:37-0400 Diastolic blood pressure 76 mm[Hg] Larry Ahn MD Work Phone: [facility] 10-24-2021 16:37-0400 Heart rate 90 /min Larry Ahn MD Work Phone: [facility] 10-24-2021 16:37-0400 Systolic blood pressure 115 mm[Hg] Larry Ahn MD Work Phone: [facility] 06-25-2021 17:54-0400 Body weight 122.92 kg Lulu Luciano MD Work Phone: [facility] 06-25-2021 17:54-0400 Diastolic blood pressure 84 mm[Hg] Lulu Luciano MD Work Phone: [facility] 06-25-2021 17:54-0400 Heart rate 84 /min Lulu Luciano MD Work Phone: [facility] 06-25-2021 17:54-0400 SaO2% (BldA) [Mass fraction] 96 % Lulu Luciano MD Work Phone: [facility] 06-25-2021 17:54-0400 Systolic blood pressure 126 mm[Hg] Lulu Luciano MD Work Phone: [facility] 02-08-2021 13:55-0500 Diastolic Blood Pressure NBP 89 1 DIOMEDES SUPPAN DPM [facility] 02-08-2021 13:55-0500 Heart rate 82 /min DIOMEDES SUPPAN DPM [facility] 02-08-2021 13:55-0500 Systolic Blood Pressure NBP 135 1 DIOMEDES SUPPAN DPM [facility] 02-08-2021 13:40-0500 Diastolic Blood Pressure NBP 89 1 DIOMEDES SUPPAN DPM [facility] 02-08-2021 13:40-0500 Heart rate 76 /min DIOMEDES SUPPAN DPM [facility] 02-08-2021 13:40-0500 Respiratory rate 15 /min DIOMEDES SUPPAN DPM [facility] 02-08-2021 13:40-0500 Systolic Blood Pressure NBP 144 1 DIOMEDES SUPPAN DPM [facility] 02-08-2021 13:36-0500 Diastolic Blood Pressure NBP 99 1 DIOMEDES SUPPAN DPM [facility] 02-08-2021 13:36-0500 Heart rate 75 /min DIOMEDES SUPPAN DPM [facility] 02-08-2021 13:36-0500 Respiratory rate 15 /min DIOMEDES SUPPAN DPM [facility] 02-08-2021 13:36-0500 Systolic Blood Pressure NBP 144 1 DIOMEDES SUPPAN DPM [facility] 02-08-2021 13:26-0500 Body temperature 96.8 [degF] DIOMEDES SUPPAN DPM [facility] 02-08-2021 13:26-0500 Respiratory rate 16 /min DIOMEDES SUPPAN DPM [facility] 02-08-2021 09:57-0500 Body temperature 97.52 [degF] DIOMEDES SUPPAN DPM [facility] 02-08-2021 09:57-0500 Heart rate 79 /min DIOMEDES SUPPAN DPM [facility] 02-01-2021 12:17-0500 Body height 177.8 cm DIOMEDES SUPPAN DPM [facility] 02-01-2021 12:17-0500 Body weight 133 kg DIOMEDES SUPPAN DPM [facility] 02-01-2021 12:17-0500 Body weight 42.07 kg/m2 DIOMEDES SUPPAN DPM [facility] 02-01-2021 12:17-0500 diastolic 100 mm[Hg] DIOMEDES SUPPAN DPM [facility] 02-01-2021 12:17-0500 Heart rate 88 /min DIOMEDES SUPPAN DPM [facility] 02-01-2021 12:17-0500 Respiratory rate 20 /min DIOMEDES SUPPAN DPM [facility] 02-01-2021 12:17-0500 systolic 158 mm[Hg] DIOMEDES SUPPAN DPM [facility] Encounters Encounter Date Encounter Type Care Provider Facility Start: 02-01-2025 End: 02-01-2025 ambulatory SELF Facility:[facility] Start: 01-27-2025 End: 01-27-2025 ambulatory Semaj FONG Facility[place] Start: 01-11-2025 End: 01-11-2025 ambulatory LULU D TALAMPAS Facility:[facility] Start: 12-16-2024 End: 12-16-2024 ambulatory [facility] Facility:[facility] Start: 12-16-2024 Patient encounter procedure [facility] Start: 12-12-2024 End: 12-12-2024 ambulatory LULU D TALAMPAS Facility:[facility] Start: 12-09-2024 ambulatory ASHLEY HERNANDEZ Facility:[facility] Start: 12-09-2024 End: 12-09-2024 ambulatory CHARLIE RIZZO Facility:[facility] Start: 12-01-2024 End: 12-01-2024 Subsequent hospital visit by physician Vidhya [facility] [place] Work Phone: Radiology Comment on above: Chronic pain of righ t ankle [M25.571, G89.29] Start: 12-01-2024 End: 12-01-2024 Patient encounter procedure Charlie Mirzajosiane Work Phone: Podiatry Comment on above: Chronic pain of righ t ankle (Primary Dx); 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); Charcot's joint, right ankle and foot; Plantar wart Start: 12-01-2024 End: 12-01-2024 ambulatory CHARLIE RIZZO Facility:[facility] Start: 11-25-2024 End: 11-25-2024 Patient encounter procedure Charlie Mirzajosiane Work Phone: Podiatry Comment on above: Ulcer of toe of righ t foot, with fat layer exposed (HCC) (Primary Dx); Plantar wart of right foot Start: 11-25-2024 End: 11-25-2024 ambulatory CHARLIE RIZZO Facility:[facility] Start: 11-15-2024 End: 11-15-2024 Patient encounter procedure Chralie Rizzo Work Phone: Podiatry Comment on above: Ulcer of toe of righ t foot, with fat layer exposed (HCC) (Primary Dx); Plantar wart of right foot Start: 11-15-2024 End: 11-15-2024 ambulatory CHARLIE RIZZO Facility:[facility] Start: 11-11-2024 End: 11-11-2024 Refill Yanni Malone MD Work Phone: OB/Gynecology Comment on above: Refill Request Diabetic polyneuropa thy associated with type 2 diabetes mellitus (HCC) (Primary Dx); Ulcer of toe of right foot, with fat layer exposed (HCC); Onychomycosis; Pain in toe of left foot; Pain in toe of right foot; Plantar wart of left foot Start: 11-09-2024 End: 11-10-2024 ambulatory Charlie Rizzo Work Phone: Podiatry Start: 11-09-2024 End: 11-10-2024 Patient encounter procedure Charlie Rizzo Work Phone: Podiatry Comment on above: Thursday's appointment Start: 11-04-2024 End: 11-04-2024 ambulatory LULU LUCIANO Facility:[facility] Start: 11-03-2024 End: 11-03-2024 Office outpatient visit 25 minutes Sudhirkash Talbot MARBLE WORKER.REHAB NURSE Work Phone: Internal Medicine [place] Comment on above: Acute intractable he adache, unspecified headache type (Primary Dx); Chronic bilateral low back pain without sciatica; TIA (transient ischemic attack); Genitourinary syndrome of menopause; Status post hysterectomy; Difficulty sleeping; Overactive bladder Start: 11-03-2024 End: 11-03-2024 ambulatory SUDHIR TALBOT Facility:[facility] Start: 10-30-2024 End: 10-31-2024 ambulatory Charlie Rizzo Work Phone: Podiatry Comment on above: About tomorrow Start: 10-29-2024 End: 10-31-[address] LULU LUCIANO MD Facility:[facility] Start: 10-29-2024 End: 10-31-[address] JOSE BRANDON MD [facility] Start: 10-28-2024 End: 10-29-2024 Emergency department patient visit DR GÓMEZ MEYERS [facility] Start: 10-20-2024 End: 10-20-2024 Patient encounter procedure Charlie Rizzo Work Phone: Podiatry Comment on above: Diabetic polyneuropa thy associated with type 2 diabetes mellitus (HCC) (Primary Dx); Ulcer of toe of right foot, with fat layer exposed (HCC) Start: 10-20-2024 End: 10-20-2024 ambulatory CHARLIE RIZZO Facility:[facility] Start: 09-29-2024 End: 09-29-2024 E-mail encounter from caregiver Charlie Rizzo Work Phone: Podiatry Start: 09-29-2024 End: 09-29-2024 Patient encounter procedure Charlie Rizzo Work Phone: Podiatry Comment on above: Diabetic polyneuropa thy associated with type 2 diabetes mellitus (HCC) (Primary Dx); Ulcer of toe of right foot, with fat layer exposed (HCC) appointment Start: 09-29-2024 End: 09-29-2024 ambulatory CHARLIE RIZZO Facility:[facility] Start: 09-28-2024 End: 11-09-2024 ambulatory Lulu Lucinao MD Work Phone: Internal Medicine [place] Comment on above: Blood work Start: 09-26-2024 End: 09-26-2024 ambulatory [facility] Provider [facility] [place] Comment on above: Uti Start: 09-22-2024 End: 11-22-2024 Follow-up encounter Charlie Mirzajosiane Work Phone: Podiatry Start: 09-19-2024 End: 09-19-2024 ambulatory PEDRO PATRICIA Facility:[facility] Start: 09-16-2024 End: 09-16-2024 Patient encounter procedure Pedro Patricia APRN.NUTRITION SERVICES WORKER Work Phone: [facility] [place] Comment on above: Acute UTI (Primary D x); Moderate recurrent major depression (HCC); DM (diabetes mellitus), type 2 with neurological complications (HCC); Ulcer of foot, right, limited to breakdown of skin (HCC); Neuropathy; Chronic bilateral low back pain with sciatica, sciatica laterality unspecified; Class 2 severe obesity with serious comorbidity and body mass index (BMI) of 37.0 to 37.9 in adult, unspecified obesity type (HCC) Start: 09-16-2024 End: 09-16-2024 ambulatory PEDRO PATRICIA Facility:[facility] Start: 09-16-2024 End: 09-16-2024 Refill Corie Jefferson APRN.NUTRITION SERVICES WORKER Work Phone: OB/Gynecology Comment on above: Refill Request Start: 09-15-2024 ambulatory CHARLIE RIZZO Facili ty:[facility] Start: 09-15-2024 End: 09-15-2024 Subsequent hospital visit by physician Vidhya [facility] Work Phone: Radiology Comment on above: Hallux valgus of lef t foot [M20.12] Start: 09-15-2024 End: 09-15-2024 Patient encounter procedure Charlie Rizzo Work Phone: Podiatry Comment on above: Diabetic polyneuropa thy associated with type 2 diabetes mellitus (HCC) (Primary Dx); Onychomycosis; Pain in toe of left foot; Pain in toe of right foot; Hallux valgus of left foot; Hallux valgus of right foot; 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) Start: 09-15-2024 End: 09-15-2024 ambulatory CHARLIE RIZZO Facility:[facility] Start: 08-31-2024 End: 08-31-2024 Refill Corie Jefferson APRN.NUTRITION SERVICES WORKER Work Phone: OB/Gynecology Comment on above: Refill Request Start: 08-04-2024 End: 08-04-2024 Orders Only Charlie iRzzo Work Phone: Podiatry Comment on above: Callus (Primary Dx); Diabetic polyneuropathy associated with type 2 diabetes mellitus (HCC); Hammertoe of left foot; Hammertoe of right foot; Charcot ankle, right Start: 08-04-2024 End: 08-04-2024 Refill Sudhir Talbot APRN.REHAB NURSE Work Phone: [facility] [place] Comment on above: Med Change Request Start: 08-01-2024 End: 08-02-2024 ambulatory Charlie Rizzo Work Phone: Podiatry Comment on above: Diabetic shoes Start: 07-28-2024 End: 07-29-2024 Refill Sudhir Talbot APRN.REHAB NURSE Work Phone: [facility] [place] Comment on above: Med Change Request Start: 07-20-2024 ambulatory LULU LUCIANO Facilit y:[facility] Start: 07-20-2024 End: 07-20-2024 Subsequent hospital visit by physician Screen Mammo [facility] Comment on above: Encounter for screen ing mammogram for breast cancer [Z12.31] Start: 07-12-2024 End: 07-18-2024 Office outpatient visit 25 minutes Lulu Luciano MD Work Phone: Internal Medicine [place] Comment on above: Type 2 diabetes porsha itus without complication, without long- term current use of insulin (HCC) (Primary Dx); Strain of abdominal muscle, initial encounter; Swelling of clavicular region; Hot flash, menopausal; Neuropathy; Vitamin D deficiency; Hypomagnesemia; Strain of left shoulder, sequela; Class 2 obesity due to excess calories with body mass index (BMI) of 36.0 to 36.9 in adult, unspecified whether serious comorbidity present; Sprain of right knee, unspecified ligament, initial encounter; Sprain of right ankle, unspecified ligament, initial encounter; Sprain of left shoulder, unspecified shoulder sprain type, initial encounter; Postmenopausal atrophic vaginitis Start: 07-12-2024 End: 07-12-2024 ambulatory LULU LUCIANO Facility:[facility] Start: 07-12-2024 End: 07-12-2024 Patient encounter procedure Charlie Rizzo Work Phone: Podiatry Comment on above: Callus (Primary Dx); Onychomycosis; Pain in toe of left foot; Pain in toe of right foot; Diabetic polyneuropathy associated with type 2 diabetes mellitus (HCC) Start: 07-12-2024 End: 07-12-2024 ambulatory CHARLIE RIZZO Facility:[facility] Start: 07-06-2024 End: 07-06-2024 Emergency department patient visit Dr. Lulu Luciano MD Work Phone: -Emergency Department Work Phone: Start: 07-01-2024 End: 07-01-2024 Emergency department patient visit LUX HODGE MD Facility:[facility] Start: 06-27-2024 End: 06-27-2024 Refill Lulu Luciano MD Work Phone: Internal Medicine [place] Comment on above: Refill Request Start: 06-27-2024 End: 06-28-2024 Refill Sudhir Talbot MARBLE WORKER.REHAB NURSE Work Phone: Internal Medicine [place] Comment on above: Med Change Request Start: 06-25-2024 End: 06-27-2024 Refill Sudhir Talbot MARBLE WORKER.REHAB NURSE Work Phone: Internal Medicine [place] Comment on above: Refill Request Start: 05-26-2024 End: 05-26-2024 Admission to same day surgery center Dr. Osvaldo Freeman DO -Surgical Day Care Start: 05-26-2024 End: 05-26-[address] Lulu Luciano MD Work Phone: [facility] Work Phone: Start: 05-19-2024 End: 05-19-2024 ambulatory Osvaldo Freeman [place] Start: 05-19-2024 End: 05-19-2024 Non-patient / Non-visit Dr. Petey Ordonez MD -[facility] Work Phone: Start: 05-17-2024 End: 05-20-2024 Refill Yanni Malone MD Work Phone: OB/Gynecology Comment on above: Med Change Request Start: 05-14-2024 End: 05-15-2024 Emergency department [facility] Start: 05-10-2024 End: 05-10-2024 Refill Lulu Luciano MD Work Phone: Internal Medicine [place] Comment on above: Refill Request Start: 05-05-2024 End: 05-11-2024 Telephone encounter Lulu Luciano MD Work Phone: Internal Medicine [place] Comment on above: Orders Start: 05-03-2024 End: 05-03-2024 ambulatory CHARLIE RIZZO Facility:[facility] Start: 05-03-2024 End: 05-03-2024 Patient encounter procedure Charlie Rizzo Work Phone: Podiatry Comment on above: Callus (Primary Dx); Plantar wart, right foot; Ulcer of toe of left foot, limited to breakdown of skin (HCC) Start: 04-22-2024 End: 04-22-2024 Patient encounter procedure Yanni Malone MD Work Phone: OB/Gynecology Comment on above: Postop check (Primar y Dx); Hot flash not due to menopause Start: 04-22-2024 End: 04-22-2024 ambulatory YANNI MALONE Facility:[facility] Start: 04-18-2024 End: 04-18-2024 Admission to same day surgery center Yanni Malone MD Work Phone: OB/Gynecology Comment on above: After surgery issues Start: 04-18-2024 End: 04-18-2024 ambulatory Yanni Malone MD Work Phone: OB/Gynecology Start: 04-18-2024 End: 04-18-2024 Chart abstracting Yanni Malone MD Work Phone: OB/Gynecology Comment on above: EKG Start: 04-15-2024 End: 04-18-2024 Patient encounter procedure Yanni Malone MD Work Phone: OB/Gynecology Start: 04-15-2024 End: 04-15-2024 Admission to same day surgery center Dr. Yanni Malone MD -Surgical Day Care Start: 04-15-2024 End: 04-18-2024 ambulatory Yanni Malone MD Work Phone: OB/Gynecology Comment on above: Menorrhagia with irr egular cycle (Primary Dx); Adenomyosis; Dysmenorrhea; Abnormal uterine bleeding (AUB); Adhesion of omentum; Bladder adhesions Start: 04-01-2024 End: 04-01-2024 ambulatory LULU LUCIANO Facility:[facility] Start: 04-01-2024 End: 04-01-2024 Patient encounter procedure Charlie Rizzo Work Phone: Podiatry Comment on above: Onychomycosis (Prima ry Dx); Pain in toe of left foot; Pain in toe of right foot; Diabetic polyneuropathy associated with type 2 diabetes mellitus (HCC); Hammertoe of left foot; Callus; Plantar wart, right foot Start: 03-31-2024 End: 03-31-2024 ambulatory SUDHIR TALBOT Facility:[facility] Start: 03-31-2024 Encounter for other preprocedural examination SUDHIR TALBOT [facility] Start: 03-31-2024 End: 03-31-2024 Office outpatient visit 25 minutes Sudhir Talbot APRN.REHAB NURSE Work Phone: Internal Medicine [place] Comment on above: Preop exam for inter nal medicine (Primary Dx); Type 2 diabetes mellitus without complication, without long-term current use of insulin (HCC) Start: 03-31-2024 End: 03-31-2024 Patient encounter status Sudhir Fernandezzaria KIDD.REHAB NURSE Work Phone: [facility] Work Phone: Start: 03-30-2024 End: 03-30-2024 ambulatory YANNI MALONE Facility:[facility] Start: 03-30-2024 End: 03-30-2024 Patient encounter procedure Yanni Malone MD Work Phone: OB/Gynecology Comment on above: Menorrhagia with irr egular cycle (Primary Dx); Adenomyosis; Dysmenorrhea Start: 03-29-2024 End: 03-29-2024 ambulatory IRASEMA BLOOD Facility:[facility] Start: 03-29-2024 End: 03-29-2024 Patient encounter procedure Irasema Blood MD Work Phone: OB/Gynecology Comment on above: Menorrhagia with irr egular cycle (Primary Dx); Abnormal uterine bleeding (AUB) Start: 03-22-2024 End: 03-22-2024 ambulatory JING VIRGEN Facility:[facility] Start: 03-22-2024 End: 03-22-2024 Subsequent hospital visit by physician [facility] Work Phone: Radiology Comment on above: Menorrhagia with irr egular cycle [N92.1] Start: 03-21-2024 End: 03-21-2024 ambulatory JING VIRGEN Facility:[facility] Start: 03-21-2024 End: 03-21-2024 Patient encounter procedure Jing Virgen APRNCarmelinaCNM Work Phone: OB/Gynecology Comment on above: Menorrhagia with irr egular cycle (Primary Dx); Abnormal uterine bleeding (AUB) Start: 03-12-2024 End: 03-28-2024 Refill Lulu Luciano MD Work Phone: Internal Medicine [place] Comment on above: Med Change Request Start: 03-04-2024 End: 04-06-2024 ambulatory Lulu Luciano MD Work Phone: Internal Medicine [place] Comment on above: I have a bad rash on my neck Start: 02-25-2024 End: 02-25-2024 Patient encounter procedure Semaj FONG [facility] Work Phone: Start: 02-25-2024 End: 02-25-2024 ambulatory Semaj FONG [place] Start: 02-09-2024 End: 02-09-2024 ambulatory LULU LUCIANO Facility:[facility] Start: 02-09-2024 End: 02-09-2024 Office outpatient visit 25 minutes Lulu Luciano MD Work Phone: Internal Medicine [place] Comment on above: Type 2 diabetes porsha itus without complication, without long- term current use of insulin (HCC) (Primary Dx); Obesity (BMI 30-39.9); Neuropathy; Depression, recurrent (HCC); Chronic bilateral low back pain without sciatica; Vitamin D deficiency; Hypomagnesemia; Hypercalcemia; Stress incontinence, female; Mixed hyperlipidemia Start: 02-07-2024 End: 02-25-2024 ambulatory Edgar Montejo MD Work Phone: Pain Management Comment on above: Vitamins Start: 02-07-2024 End: 02-08-2024 Follow-up encounter Edgar Montejo MD Work Phone: Pain Management Comment on above: Follow up Start: 02-05-2024 End: 02-05-2024 ambulatory SUDHIR TALBOT Facility:[facility] Start: 02-05-2024 End: 02-05-2024 Office outpatient visit 15 minutes Sudhir Talbot APRN.REHAB NURSE Work Phone: Internal Medicine [place] Comment on above: Non-recurrent acute serous otitis media of both ears (Primary Dx) Start: 02-01-2024 End: 02-01-2024 Patient encounter procedure Brendan Flor MD Work Phone: Orthopaedics Comment on above: 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) Start: 01-27-2024 End: 01-27-2024 Patient encounter procedure Ward Kennedy PA [facility] Work Phone: Start: 01-25-2024 End: 01-25-2024 Refill Sudhir Fernandezzaria KIDD.REHAB NURSE Work Phone: Internal Medicine [place] Comment on above: Refill Request Start: 01-20-2024 End: 01-20-2024 Refill Corie Jefferson APRN.NUTRITION SERVICES WORKER Work Phone: OB/Gynecology Comment on above: Refill Request Start: 01-12-2024 End: 01-12-2024 Telephone encounter Charlie Rizzo Work Phone: Podiatry Start: 01-12-2024 End: 01-12-2024 Patient encounter procedure Charlie Rizzo Work Phone: Podiatry Comment on above: Callus (Primary Dx); Onychomycosis; Pain in toe of left foot; Pain in toe of right foot; Diabetic polyneuropathy associated with type 2 diabetes mellitus (HCC); Hammertoe of left foot; Hammertoe of right foot Start: 01-07-2024 End: 01-07-2024 ambulatory Lulu Luciano MD Work Phone: [facility] Comment on above: Allied Health Visit (Medication Adherence Outreach ) Start: 01-04-2024 End: 01-04-2024 Patient encounter procedure Brendan Flor MD Work Phone: Orthopaedics Comment on above: 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) Start: 01-04-2024 End: 01-08-2024 ambulatory Charlie Rizzo Work Phone: Podiatry Comment on above: Left foot issue Start: 12-28-2023 End: 12-29-2023 ambulatory Charlie Rizzo Work Phone: Podiatry Comment on above: Diabetes does Start: 12-21-2023 End: 12-29-2023 ambulatory Pedro Patricia APRN.NUTRITION SERVICES WORKER Work Phone: Internal Medicine [place] Comment on above: Sleep study Start: 12-21-2023 End: 12-29-2023 E-mail encounter from caregiver Pedro Patricia APRN.NUTRITION SERVICES WORKER Work Phone: Internal Medicine [place] Start: 12-21-2023 End: 12-21-2023 Patient encounter procedure Brendan Flor MD Work Phone: Orthopaedics Comment on above: 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) Start: 12-19-2023 End: 12-19-2023 ambulatory [facility] [place] Work Phone: Family [facility] [place] Start: 12-19-2023 End: 12-19-2023 Patient encounter procedure [facility] [place] Work Phone: Family Medicine [place] Start: 12-14-2023 End: 12-14-2023 Telephone encounter Pedro Patricia APRN.NUTRITION SERVICES WORKER Work Phone: Internal Medicine [place] Comment on above: handicap placard Start: 12-08-2023 End: 12-08-2023 ambulatory Edgar Montejo MD Work Phone: Pain Management Comment on above: Results and Recommen dations Procedure Instructio ns Spinal stenosis of c ervical region (Primary Dx); DDD (degenerative disc disease), cervical Start: 12-08-2023 End: 12-08-2023 E-mail encounter from caregiver Edgar Montejo MD Work Phone: Pain Management Start: 12-08-2023 End: 12-08-2023 Telephone encounter Edgar Montejo MD Work Phone: Pain Management Comment on above: Results (Cervical MR I) Start: 12-03-2023 End: 12-03-2023 ambulatory LULU LUCIANO Facility[facility] Start: 12-03-2023 End: 12-03-2023 Telephone encounter Brendan Flor MD Work Phone: Orthopaedics Comment on above: Arm swelling Start: 12-03-2023 End: 12-03-2023 Subsequent hospital visit by physician [facility] (I-Stat/1.5t) Work Phone: Radiology Comment on above: Spinal stenosis of c ervical region [M48.02] Start: 12-01-2023 End: 12-02-2023 Refill Pedro Patricia APRN.CNP Work Phone: Internal Medicine [place] Comment on above: Refill Request Start: 11-28-2023 End: 11-30-2023 ambulatory Pedro Patricia APRN.NUTRITION SERVICES WORKER Work Phone: Internal Medicine [place] Comment on above: Mri Start: 11-27-2023 End: 11-27-2023 ambulatory BRENDAN FLOR Facility[facility] Start: 11-26-2023 End: 11-30-2023 ambulatory Lulu Luciano MD Work Phone: Internal Medicine [place] Comment on above: Mri Start: 11-20-2023 End: 11-20-2023 Patient encounter procedure Corie Jefferson APRN.NUTRITION SERVICES WORKER Work Phone: OB/Gynecology Comment on above: Burning with urinati on (Primary Dx); Vaginal odor Start: 11-18-2023 End: 11-18-2023 ambulatory Pedro Patricia APRN.NUTRITION SERVICES WORKER Work Phone: Internal Medicine [place] Comment on above: Results Start: 11-18-2023 End: 11-18-2023 E-mail encounter from caregiver Pedro Patricia APRN.CNP Work Phone: Internal Medicine [place] Start: 11-17-2023 End: 11-17-2023 Patient encounter procedure Pedro Patricia APRN.CNP Work Phone: Internal Medicine [place] Comment on above: Type 2 diabetes porsha itus without complication, without long- term current use of insulin (HCC) (Primary Dx); Fatigue, unspecified type; Neuropathy; Chronic bilateral low back pain without sciatica; Vitamin D deficiency Start: 11-16-2023 End: 11-17-2023 Refill Sudhir Talbot APRN.CNS Work Phone: Internal Medicine [place] Comment on above: Refill Request Start: 11-16-2023 End: 01-01-2024 Refill Jt Evans MD Work Phone: General Surgery Comment on above: Refill Request Start: 11-12-2023 End: 11-12-2023 Patient encounter procedure Charlie Rizzo Work Phone: Podiatry Comment on above: DM (diabetes mellitu s), type 2 with neurological complications (HCC) (Primary Dx); Charcot ankle, right; Hammertoe of right foot; Callus; Onychomycosis Start: 11-05-2023 End: 11-05-2023 Patient encounter procedure Serenity Mena APRN.NUTRITION SERVICES WORKER Work Phone: Pain Management Comment on above: Spinal stenosis of c ervical region (Primary Dx); Osteoarthritis of spine with radiculopathy, cervical region; DDD (degenerative disc disease), cervical; Cervical myofascial pain syndrome; Paresthesia Start: 11-05-2023 End: 11-05-2023 Admission to establishment [facility] [place] [facility] Pre Anesthesia Start: 11-05-2023 End: 11-05-2023 Anesthesia consultation [facility] Pre [facility]esthesia Comment on above: Preoperative examina tion (Primary Dx); Ulnar neuropathy of right upper extremity; Type 2 diabetes mellitus without complication, without long-term current use of insulin (HCC); Mixed hyperlipidemia; WILTON on CPAP; Restless leg syndrome; Neuropathy; Benign paroxysmal positional vertigo, unspecified laterality; Hx-TIA (transient ischemic attack); Aneurysm (HCC); Gastroesophageal reflux disease without esophagitis; Irritable bowel syndrome, unspecified type; 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; Fibromyalgia; Insomnia, unspecified type; Anxiety and depression; Obesity (BMI 30-39.9) Start: 11-05-2023 End: 11-05-2023 Preprocedural examination done P[facility] Work Phone: Start: 11-02-2023 End: 11-02-2023 Subsequent hospital visit by physician Vidhya [facility] [place] [facility] Work Phone: Radiology Comment on above: Chronic pain of righ t knee [M25.561, G89.29] Start: 11-02-2023 End: 11-02-2023 Patient encounter procedure Riddhi Rivera PA-C Work Phone: Orthopaedics Comment on above: Ulnar neuropathy at elbow of right upper extremity; Chronic pain of right knee Start: 11-02-2023 Telephone encounter Brendan brock MD Work Phone: Orthopaedics Comment on above: Schedule Surgery Start: 10-30-2023 End: 12-04-2023 Refill Pedro Patricia MARBLE WORKER.NUTRITION SERVICES WORKER Work Phone: Internal Medicine [place] Comment on above: Refill Request PSG Check In Start: 10-23-2023 ambulatory Pedro Shankarr MARBLE WORKER.NUTRITION SERVICES WORKER Work Phone: Internal Medicine [place] Comment on above: Pharmacy Start: 10-20-2023 Refill Lulu enciso MD Work Phone: Internal Medicine [place] Comment on above: Refill Request Start: 10-16-2023 End: 10-16-2023 ambulatory Emg 850) Neurology Comment on above: EMG Start: 10-16-2023 End: 10-16-2023 Patient encounter procedure Emg 1 Neur Jb (Max Weight: 850) Neurology Start: 10-15-2023 End: 10-15-2023 ambulatory Jovon Ortiz PT Work Phone: [place] [facility] Physical Therapy Comment on above: DDD (degenerative di sc disease), cervical (Primary Dx); Cervical myofascial pain syndrome Start: 10-12-2023 Telephone encounter Pedro Alvarez er MARBLE WORKER.NUTRITION SERVICES WORKER Work Phone: Internal Medicine [place] Comment on above: Results Start: 10-10-2023 ambulatory Pedro Shankarr MARBLE WORKER.NUTRITION SERVICES WORKER Work Phone: Internal Medicine [place] Comment on above: I forgot Start: 10-09-2023 End: 10-09-2023 Subsequent hospital visit by physician Vidhya [facility] [place] Work Phone: Radiology Comment on above: Skin sensation distu rbance [R20.9] Start: 10-09-2023 End: 10-09-2023 Patient encounter procedure Pedro Patricia APRN.NUTRITION SERVICES WORKER Work Phone: Internal Medicine [place] Comment on above: Lumbar pain (Primary Dx); Skin sensation disturbance; WILTON on CPAP Start: 10-09-2023 ambulatory Pedro Patricia MARBLE WORKER.NUTRITION SERVICES WORKER Work Phone: Internal Medicine [place] Comment on above: ENT Start: 10-09-2023 E-mail encounter fro m caregiver Pedro Patricia MARBLE WORKER.NUTRITION SERVICES WORKER Work Phone: Internal Medicine [place] Start: 10-07-2023 MC Get Medical Advice Pedro freedman MARBLE WORKER.NUTRITION SERVICES WORKER Work Phone: Internal Medicine [place] Comment on above: Med refill request Start: 09-21-2023 ambulatory Pedro Patricia MARBLE WORKER.NUTRITION SERVICES WORKER Work Phone: Internal Medicine [place] Comment on above: Fax Start: 09-17-2023 End: 09-17-2023 ambulatory Jovon Ortiz PT Work Phone: [facility] Physical [facility] Comment on above: DDD (degenerative di sc disease), cervical (Primary Dx); Cervical myofascial pain syndrome Start: 09-16-2023 ambulatory RIDDHI RIVERA [facility] y:[facility] Start: 09-16-2023 End: 09-16-2023 Subsequent hospital visit by physician [facility] Work Phone: [facility] Comment on above: Lesion of right ulna r nerve [G56.21] Start: 09-11-2023 End: 09-11-2023 ambulatory Jovon Ortiz PT Work Phone: [facility] Comment on above: DDD (degenerative di sc disease), cervical (Primary Dx); Cervical myofascial pain syndrome Start: 09-08-2023 ambulatory Pedro Patricia MARBLE WORKER.NUTRITION SERVICES WORKER Work Phone: Internal Medicine [place] Comment on above: [place] Start: 09-01-2023 Telephone encounter Jj Ritchie MD Work Phone: Neurology Start: 09-01-2023 End: 09-01-2023 ambulatory Jovon Ortiz PT Work Phone: [facility] Comment on above: DDD (degenerative di sc disease), cervical (Primary Dx); Cervical myofascial pain syndrome Start: 08-30-2023 Refill Pedro Patricia APRN.NUTRITION SERVICES WORKER Work Phone: Internal Medicine [place] Comment on above: Refill Request Start: 08-24-2023 End: 08-24-2023 ambulatory Jovon Ortiz PT Work Phone: [facility] Comment on above: DDD (degenerative di sc disease), cervical (Primary Dx); Cervical myofascial pain syndrome Allied Health Visit (Medication Adherence Outreach ) Start: 08-24-2023 End: 08-24-2023 Patient encounter procedure Riddhi Rivera PA-C Work Phone: Orthopaedics Comment on above: Lesion of right ulna r nerve (Primary Dx); Bilateral hand numbness; Acquired trigger finger of right middle finger; Acquired trigger finger of right ring finger Start: 08-11-2023 ambulatory Pedro Patricia MARBLE WORKER.NUTRITION SERVICES WORKER Work Phone: Internal Medicine [place] Comment on above: Ozempic Painful elbow Start: 08-06-2023 ambulatory Pedro Patricia APRN.NUTRITION SERVICES WORKER Work Phone: Internal Medicine [place] Comment on above: Ozempic Start: 08-06-2023 End: 08-06-2023 Subsequent hospital visit by physician Vidhya [facility] [place] [facility] Work Phone: Radiology Comment on above: Hammertoe of right f oot [M20.41] Start: 08-06-2023 End: 08-06-2023 Patient encounter procedure Charlie Rizzo Work Phone: Podiatry Comment on above: DM (diabetes mellitu s), type 2 with neurological complications (HCC) (Primary Dx); Hammertoe of right foot; Callus; Charcot ankle, right Start: 08-05-2023 ambulatory Katharine Butler RP Work Phone: [facility] Start: 08-05-2023 Patient encounter procedure Katharine Butler [facility] Work Phone: [facility] Start: 07-27-2023 End: 07-27-2023 Patient encounter procedure Riddhi Rivera PA-C Work Phone: Orthopaedics Comment on above: Acquired trigger fin jono of right middle finger (Primary Dx); Acquired trigger finger of right ring finger Start: 07-27-2023 End: 07-27-2023 ambulatory Janel Bahena WELT WHEELER Work Phone: [facility] Comment on above: DDD (degenerative di sc disease), cervical (Primary Dx); Cervical myofascial pain syndrome Start: 07-21-2023 Documentation procedure Mammog rosalio Coordinator [facility] Department Start: 07-21-2023 Letter encounter Mammography Coordinator [facility] Department Start: 07-20-2023 End: 07-20-2023 Subsequent hospital visit by physician Screen M[facility] Comment on above: Encounter for screen ing mammogram for breast cancer [Z12.31] Start: 07-10-2023 End: 07-10-2023 ambulatory Jovon Ortiz PT Work Phone: [facility] Comment on above: DDD (degenerative di sc disease), cervical (Primary Dx); Cervical myofascial pain syndrome Start: 07-07-2023 End: 07-07-2023 Office outpatient visit 25 minutes Lulu Luciano MD Work Phone: Internal Medicine [place] Comment on above: Type 2 diabetes porsha itus without complication, without long- term current use of insulin (HCC) (Primary Dx); Insomnia, unspecified type; Obesity (BMI 30-39.9); Neuropathy Start: 07-07-2023 End: 07-07-2023 Patient encounter procedure Charlie Rizzo Work Phone: Podiatry Comment on above: Hammertoe of left fo ot (Primary Dx); DM (diabetes mellitus), type 2 with neurological complications (HCC); Ulcer of toe of left foot, limited to breakdown of skin (HCC); Callus Start: 07-02-2023 End: 07-02-2023 Subsequent hospital visit by physician Vidhya [facility] [place] Work Phone: Radiology Comment on above: Fall, initial encoun ter [W19.XXXA] Start: 07-02-2023 End: 07-02-2023 Patient encounter procedure Sudhir Talbot BERNABE.REHAB NURSE Work Phone: Internal Medicine [place] Comment on above: Medicare annual well ness visit, subsequent (Primary Dx); Fall, initial encounter; Type 2 diabetes mellitus without complication, without long-term current use of insulin (HCC); Encounter for immunization; Encounter for screening mammogram for breast cancer; Aneurysm (HCC) Start: 07-02-2023 End: 07-02-2023 ambulatory Jovon Ortiz PT Work Phone: [facility] Comment on above: DDD (degenerative di sc disease), cervical (Primary Dx); Cervical myofascial pain syndrome Start: 06-30-2023 ambulatory Lulu enciso MD Work Phone: [facility] Comment on above: Allied Health Visit (Medication Adherence Outreach) Need a copy Start: 06-23-2023 ambulatory Lulu enciso MD Work Phone: [employer] Comment on above: Allied Health Visit (Medication Adherence Outreach ) Start: 06-16-2023 Telephone encounter Brendan brock MD Work Phone: Orthopaedics Comment on above: Schedule Surgery Start: 06-15-2023 End: 06-15-2023 Nursing evaluation of patient and report Mi Nurse Work Phone: Family Medicine [place] Comment on above: Need for vaccination (Primary Dx) Start: 06-13-2023 ambulatory Riddhi forrester PA-C Work Phone: [facility] Comment on above: Update on my left fo ot Start: 06-13-2023 Follow-up encounter Riddhi andrews PA-C Work Phone: Orthopaedics Comment on above: Follow up Start: 06-09-2023 ambulatory Pedro Petra MARBLE WORKER.NUTRITION SERVICES WORKER Work Phone: Internal Medicine [place] Comment on above: Changed my cell Start: 06-09-2023 Telephone encounter Lulu ardon MD Work Phone: Internal Medicine [place] Comment on above: Insurance Authorizat ion Start: 06-08-2023 ambulatory Lulu enciso MD Work Phone: Internal Medicine [place] Comment on above: Trouble sleeping and weight loss Start: 06-08-2023 End: 06-08-2023 Patient encounter procedure Riddhi Rivera PA-C Work Phone: Orthopaedics Comment on above: Trigger middle finge r of right hand (Primary Dx); Trigger finger of right hand, unspecified finger; Trigger ring finger of right hand Start: 06-06-2023 Refill Pedro Petra MARBLE WORKER.NUTRITION SERVICES WORKER Work Phone: Internal Medicine [place] Comment on above: Refill Request Start: 06-05-2023 End: 06-05-2023 ambulatory Maninder Patino PT, DPT [place] [facility] Physical [facility] Comment on above: Cervical myofascial pain syndrome; DDD (degenerative disc disease), cervical Start: 06-02-2023 Refill Pedro Petra MARBLE WORKER.NUTRITION SERVICES WORKER Work Phone: Internal Medicine [place] Comment on above: Refill Request Start: 06-01-2023 Refill Pedro Petra MARBLE WORKER.NUTRITION SERVICES WORKER Work Phone: Internal Medicine [place] Comment on above: Refill Request Start: 05-25-2023 End: 05-25-2023 Patient encounter procedure Edgar Montejo MD Work Phone: Pain Management Comment on above: Cervical myofascial pain syndrome (Primary Dx); Paresthesia; Weakness; Osteoarthritis of spine with radiculopathy, cervical region; DDD (degenerative disc disease), cervical Start: 05-21-2023 E-mail encounter lance m caregiver [facility] Provider FIORELLA KEY [facility] Start: 05-21-2023 End: 05-21-2023 Patient encounter procedure Charlie Rizzo Work Phone: Podiatry Comment on above: Hammertoe of left fo ot (Primary Dx); DM (diabetes mellitus), type 2 with neurological complications (HCC); Callus Instructions for you r upcoming appointment Start: 05-13-2023 ambulatory [facility] Start: 05-13-2023 Patient encounter procedure Anne-Marie Castillo [facility] [place] Comment on above: Population Health Na vigation Outreach ([facility] Annual Wellness Visit ) Start: 05-06-2023 ambulatory Charlie dexter Work Phone: Podiatry Comment on above: xrays Start: 05-06-2023 E-mail encounter fro m caregiver Charlie Rizzo Work Phone: [facility] Start: 05-05-2023 ambulatory Pedro Shankarr MARBLE WORKER.NUTRITION SERVICES WORKER Work Phone: [facility] [place] Comment on above: Results Start: 05-05-2023 E-mail encounter fro m caregiver Pedro Shankarr MARBLE WORKER.NUTRITION SERVICES WORKER Work Phone: [facility] [place] Start: 05-04-2023 End: 05-04-2023 Subsequent hospital visit by physician Xr [facility] Work Phone: Radiology Comment on above: Hammertoe of left fo ot [M20.42] Paresthesia [R20.2] Start: 05-04-2023 End: 05-04-2023 Patient encounter procedure Pedro Petra MARBLE WORKER.NUTRITION SERVICES WORKER Work Phone: [facility] [place] Comment on above: Paresthesia (Primary Dx); Weakness Start: 05-01-2023 End: 05-01-2023 Refill Pedro Petra MARBLE WORKER.NUTRITION SERVICES WORKER Work Phone: [facility] [place] Comment on above: Refill Request Ulcer of toe of left foot, limited to breakdown of skin (HCC) (Primary Dx); Hammertoe of left foot; DM (diabetes mellitus), type 2 with neurological complications (HCC) Start: 04-29-2023 ambulatory Pedro Petra MARBLE WORKER.NUTRITION SERVICES WORKER Work Phone: [facility] [place] Comment on above: Results Start: 04-29-2023 E-mail encounter fro m caregiver Pedro Petra MARBLE WORKER.NUTRITION SERVICES WORKER Work Phone: [facility] [place] Start: 04-29-2023 End: 04-29-2023 Subsequent hospital visit by physician Mri Radio [facility] (I-Stat/1.5t) Work Phone: Radiology Comment on above: Chronic right should er pain [M25.511, G89.29] Start: 04-28-2023 Refill Sudhir Augustus PADILLAN.REHAB NURSE Work Phone: [facility] [place] Comment on above: Med Change Request Start: 04-25-2023 MC Get Medical Advice Pedro freedman MARBLE WORKER.NUTRITION SERVICES WORKER Work Phone: [facility] [place] Comment on above: Lyrics on back order over a month Start: 04-24-2023 ambulatory Charlie Liya dexter Work Phone: Podiatry Comment on above: About my boot Start: 04-23-2023 Telephone encounter Lulu ardon MD Work Phone: [facility] [place] Comment on above: Medication Request Start: 04-14-2023 End: 04-14-[address] Lulu Luciano Work Phone: [facility] Work Phone: Start: 04-14-2023 End: 04-14-[address] Lulu Luciano Work Phone: [facility] Work Phone: Start: 03-28-2023 End: 03-28-2023 Emergency department patient visit DR LULU LUCIANO MD Facility:B Start: 03-28-2023 End: 03-28-2023 Emergency department patient visit [facility]ADOU [facility]BAR[facility] Start: 03-14-2023 End: 03-14-2023 Emergency department patient visit DR LULU LUCIANO MD Facility:[facility] Start: 03-14-2023 End: 03-14-2023 Emergency department patient visit DR REGGIE J RIDER [facility] Start: 02-19-2023 End: 02-19-2023 Patient encounter procedure Charlie Rizzo Work Phone: Podiatry Comment on above: DM (diabetes mellitu s), type 2 with neurological complications (HCC) (Primary Dx); Hammertoe of left foot; Hammertoe of right foot; Ulcer of toe of left foot, limited to breakdown of skin (HCC); Blister of toe of right foot, initial encounter Start: 02-15-2023 ambulatory Charlie dexter Work Phone: Podiatry Comment on above: Bad toe Start: 01-26-2023 End: 01-26-2023 Subsequent hospital visit by physician Vidhya [facility] [place] Work Phone: Radiology Comment on above: Acute bilateral low back pain without sciatica [M54.50] Start: 01-26-2023 End: 01-26-2023 Patient encounter procedure Pedro Patricia APRN.NUTRITION SERVICES WORKER Work Phone: [facility] [place] Comment on above: Acute bilateral low back pain without sciatica (Primary Dx); Chronic right shoulder pain; Neuropathy; Sleep disorder; Depression, recurrent (HCC); Obesity (BMI 30-39.9) Start: 01-15-2023 End: 01-15-2023 Patient encounter procedure Charlie Rizzo Work Phone: Podiatry Comment on above: Diabetic ulcer of he el associated with diabetes mellitus due to underlying condition, with fat layer exposed, unspecified laterality (HCC) (Primary Dx); DM (diabetes mellitus), type 2 with neurological complications (HCC); Charcot ankle, right; Callus Start: 01-14-2023 Refill Pedro Patricia APRN.NUTRITION SERVICES WORKER Work Phone: [facility] [place] Comment on above: Refill Request Start: 01-09-2023 Refill Pedro Patricia MARBLE WORKER.NUTRITION SERVICES WORKER Work Phone: [facility] [place] Comment on above: Refill Request Start: 01-06-2023 ambulatory Charlie Mirzara dexter Work Phone: Podiatry Comment on above: In dire need of guaz e and aquacel pads and I'm all out of tape to secure my daily dressings Start: 12-20-2022 Refill Lulu enciso MD Work Phone: [facility] [place] Comment on above: Refill Request Start: 12-16-2022 Refill Pedro Patricia MARBLE WORKER.NUTRITION SERVICES WORKER Work Phone: [facility] [place] Comment on above: Refill Request Start: 12-15-2022 End: 12-15-2022 Nursing evaluation of patient and report Mi Nurse Work Phone: [facility] [place] Comment on above: Need for vaccination (Primary Dx); Need for influenza vaccination Start: 12-10-2022 End: 12-10-2022 Subsequent hospital visit by physician Vidhya [facility] [place] [facility] Work Phone: Radiology Comment on above: Diabetic ulcer of he el associated with diabetes mellitus due to underlying condition, with fat layer exposed, unspecified laterality (HCC) [E08.621, L97.402] Start: 12-09-2022 End: 12-09-2022 Patient encounter procedure Charlie Lauren Work Phone: Podiatry Comment on above: Diabetic ulcer of he el associated with diabetes mellitus due to underlying condition, with fat layer exposed, unspecified laterality (HCC) (Primary Dx); DM (diabetes mellitus), type 2 with neurological complications (HCC); Charcot ankle, right Start: 12-08-2022 Telephone encounter Charlie Ndiaye Work Phone: [facility] Comment on above: Patient Update Start: 12-02-2022 Refill Pedro Patricia MARBLE WORKER.NUTRITION SERVICES WORKER Work Phone: [facility] [place] Comment on above: Refill Request Start: 11-25-2022 Refill Sudhir Talbot APRN.REHAB NURSE Work Phone: [facility] Comment on above: Med Change Request Start: 11-24-2022 Refill Pedro Patricia MARBLE WORKER.NUTRITION SERVICES WORKER Work Phone: [facility] [place] Comment on above: Refill Request Start: 11-21-2022 Telephone encounter Lulu ardon MD Work Phone: [facility] [place] Comment on above: Medication Problem Start: 11-19-2022 Refill Pedro Patricia APRN.NUTRITION SERVICES WORKER Work Phone: [facility] [place] Comment on above: Refill Request Start: 11-17-2022 End: 11-17-2022 Patient encounter procedure Charlie Rizzo Work Phone: Podiatry Comment on above: Charcot ankle, right (Primary Dx); DM (diabetes mellitus), type 2 with neurological complications (HCC); Callus Start: 11-07-2022 End: 11-07-2022 Patient encounter procedure Corie Jefferson APRN.NUTRITION SERVICES WORKER Work Phone: OB/Gynecology Comment on above: Encounter for IUD re moval (Primary Dx); Malpositioned intrauterine device (IUD), initial encounter Start: 11-07-2022 ambulatory Anne-Marie PRITCHARD RN.MARIVEL Work Phone: OB/Gynecology Comment on above: IUD Start: 11-07-2022 E-mail encounter fro m caregiver Anne-Marie Gilliam APRN.CNP Work Phone: [facility] Start: 11-06-2022 End: 11-06-2022 Subsequent hospital visit by physician [facility] Work Phone: Radiology Comment on above: Suprapubic pain [R10 .2] Start: 10-28-2022 End: 10-28-2022 Patient encounter procedure Pedro Patricia APRN.NUTRITION SERVICES WORKER Work Phone: [facility] [place] Comment on above: Suprapubic pain (Cierra keyona Dx); DM (diabetes mellitus), type 2 with neurological complications (HCC); Neuropathy; Obesity (BMI 30-39.9); Depression, recurrent (HCC); Benign paroxysmal positional vertigo, unspecified laterality; 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; Chronic left shoulder pain Start: 10-18-2022 Refill Pedro Patricia APRN.CNP Work Phone: [facility] [place] Comment on above: Refill Request Start: 10-17-2022 End: 10-17-2022 Office outpatient visit 25 minutes Lulu Luciano MD Work Phone: [facility] [place] Comment on above: Acute left-sided low back pain with left-sided sciatica (Primary Dx); Sacroiliac joint pain; Muscle spasm of back; Other gastritis without hemorrhage, unspecified chronicity; Esophagitis; DM (diabetes mellitus), type 2 with neurological complications (HCC) Start: 09-30-2022 End: 09-30-2022 Patient encounter procedure Jt Evans MD Work Phone: General Surgery Comment on above: Family history of co aashish cancer in father (Primary Dx); Screening for colon cancer; Change in bowel habits; Bloating Start: 09-30-2022 End: 09-30-2022 Office outpatient visit 25 minutes Pedro Patricia APRN.CNP Work Phone: [facility] [place] Comment on above: DM (diabetes mellitu s), type 2 with neurological complications (HCC) (Primary Dx); Neuropathy; Obesity (BMI 30-39.9); Depression, recurrent (HCC); Ulcer of foot, unspecified laterality, unspecified ulcer stage (HCC) Start: 09-26-2022 ambulatory Lulu enciso MD Work Phone: [facility] [place] Comment on above: Handicap sticker req uest Start: 09-17-2022 Refill Lulu enciso MD Work Phone: [facility] [place] Comment on above: Refill Request Start: 09-15-2022 End: 09-15-2022 Subsequent hospital visit by physician Jt Evans MD Work Phone: [facility] Comment on above: Family history of co aashish cancer in father [Z80.0] Start: 07-28-2022 End: 07-28-[address] Lulu Luciano Work Phone: [facility] Start: 07-25-2022 End: 07-25-2022 ambulatory Phuong Colvin PT [facility] Comment on above: Chronic left shoulde r pain (Primary Dx) Start: 07-24-2022 Non-patient / Non-visit Dr. Najma Luciano Work Phone: [facility] Start: 07-24-2022 End: 08-20-[address] Lulu Luciano Work Phone: [facility] Work Phone: Start: 07-24-2022 End: 08-20-[address] Lulu Luciano [facility] Start: 07-18-2022 End: 07-18-2022 ambulatory Phuong Colvin PT [facility] Comment on above: Chronic left shoulde r pain (Primary Dx) Start: 07-17-2022 End: 07-17-2022 Patient encounter procedure Jt Evans MD Work Phone: General Surgery Comment on above: Change in bowel habi ts (Primary Dx); Family history of colon cancer in father; Screening for colon cancer; Bloating Start: 07-16-2022 ambulatory Pedro Patricia APRN.NUTRITION SERVICES WORKER Work Phone: [facility] [place] Comment on above: Results Start: 07-16-2022 Documentation procedure Mammog rosalio Coordinator [facility] Start: 07-16-2022 E-mail encounter fro m caregiver Pedro Patricia APRN.NUTRITION SERVICES WORKER Work Phone: [facility] Start: 07-16-2022 Letter encounter Mammography Coordinator [facility] Department Start: 07-16-2022 End: 07-16-2022 Subsequent hospital visit by physician Screen Mammo [facility] Comment on above: Encounter for screen ing mammogram for breast cancer [Z12.31] Start: 07-13-2022 ambulatory Pedro Patricia APRN.NUTRITION SERVICES WORKER Work Phone: [facility] [place] Comment on above: Question Start: 07-06-2022 End: 07-06-2022 Emergency department patient visit DR GÓMEZ [facility]YERS [facility] Start: 07-05-2022 Refill Pedro Patricia APRN.NUTRITION SERVICES WORKER Work Phone: [facility] [place] Comment on above: Refill Request Start: 07-03-2022 Refill Lulu enciso MD Work Phone: [facility] [place] Comment on above: Refill Request Start: 06-25-2022 Telephone encounter Lulu ardon MD Work Phone: [facility] [place] Comment on above: Pharmacy Question Start: 06-22-2022 Refill Sudhir Talbot APRN.REHAB NURSE Work Phone: [facility] [place] Comment on above: Refill Request Start: 06-17-2022 End: 06-17-2022 Patient encounter procedure Anne-Marie Gilliam APRN.NUTRITION SERVICES WORKER Work Phone: OB/Gynecology Comment on above: Breakthrough bleedin g associated with intrauterine device (IUD) (Primary Dx); Pelvic pain in female; Class 2 severe obesity with serious comorbidity and body mass index (BMI) of 39.0 to 39.9 in adult, unspecified obesity type (HCC); Encounter for screening mammogram for breast cancer Start: 06-07-2022 Refill Sudhir Talbot APRN.REHAB NURSE Work Phone: [facility] [place] Comment on above: Refill Request Start: 06-02-2022 End: 06-02-2022 Refill Lulu Luciano MD Work Phone: [facility] [place] Comment on above: Refill Request Chronic left shoulde r pain (Primary Dx) Start: 05-26-2022 End: 05-26-2022 Emergency department patient visit ROC MEME [facility] Start: 05-23-2022 Refill Pedro Patricia APRN.NUTRITION SERVICES WORKER Work Phone: [facility] [place] Comment on above: Refill Request Start: 05-17-2022 Refill Lulu enciso MD Work Phone: [facility] [place] Start: 05-15-2022 End: 05-15-2022 Emergency department patient visit ROC VALENTINE DO [facility] Start: 04-30-2022 ambulatory Pedro Patricia APRN.NUTRITION SERVICES WORKER Work Phone: [facility] [place] Comment on above: Results Start: 04-30-2022 E-mail encounter fro m caregiver Pedro Patricai MARBLE WORKER.NUTRITION SERVICES WORKER Work Phone: [facility] [place] Start: 04-25-2022 End: 04-25-2022 Patient encounter procedure Pedro Patricia MARBLE WORKER.NUTRITION SERVICES WORKER Work Phone: [facility] [place] Comment on above: Acute pain of left s houlder (Primary Dx); Pain of left clavicle Start: 04-25-2022 End: 04-25-2022 Subsequent hospital visit by physician Vidhya [facility] Work Phone: Radiology Start: 04-24-2022 Telephone encounter Lulu ardon MD Work Phone: [facility] [place] Comment on above: Appointment Start: 04-17-2022 End: 04-17-2022 Admission to establishment DIOMEDES COSME DPM [facility] Start: 04-11-2022 End: 04-11-2022 Emergency department patient visit LUX HODGE MD [facility] Start: 04-01-2022 ambulatory Lulu enciso MD Work Phone: [facility] [place] Comment on above: For [facility] Start: 03-26-2022 Telephone encounter Lulu ardon MD Work Phone: [facility] Medicine [place] Comment on above: Letter Start: 03-22-2022 End: 03-22-2022 Subsequent hospital visit by physician Vidhya [facility] Work Phone: Radiology Comment on above: Post-concussion head ache [G44.309] Start: 03-18-2022 End: 03-18-2022 Emergency department patient visit LUX HODGE MD [facility] Start: 03-05-2022 Refill Sudhir Talbot APRN.JOE Work Phone: [facility] [place] Comment on above: Refill Request Start: 03-01-2022 End: 03-02-2022 Emergency department patient visit STELLA PETERS DO [facility] Start: 02-25-2022 End: 02-25-2022 Patient encounter procedure Christine Tabares DPIbis Work Phone: Podiatry Comment on above: Ulcer of foot, right , limited to breakdown of skin (HCC) (Primary Dx) Start: 02-04-2022 Refill Star amaya MD Work Phone: [facility] Comment on above: Refill Request Start: 01-31-2022 End: 01-31-2022 Office outpatient visit 25 minutes Anca Wood MD Work Phone: [facility] Comment on above: Lung nodule (Primary Dx); Encounter for immunization; Restless leg syndrome; Obesity (BMI 30-39.9); 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; Obesity, Class II, BMI 35-39.9; WILTON on CPAP Start: 01-19-2022 Refill Star amaya MD Work Phone: [facility] Comment on above: Refill Request Start: 01-16-2022 Telephone encounter Thalia monroy PA-C Work Phone: [facility] Comment on above: Patient Question (Ba ndages) Start: 01-14-2022 End: 01-14-2022 Patient encounter procedure Christine Tabares DPIbis Work Phone: Podiatry Comment on above: Ulcer of foot, right , limited to breakdown of skin (HCC) (Primary Dx); DM (diabetes mellitus), type 2 with neurological complications (HCC) Start: 01-14-2022 ambulatory Star amaya MD Work Phone: Internal Medicine [facility] Comment on above: Question regarding U S KIDNEY/BLADDER Start: 01-14-2022 End: 01-14-2022 Subsequent hospital visit by physician Main A21 3 Work Phone: Radiology Comment on above: Right flank pain [R1 0.9] Pain [R52] Start: 12-23-2021 ambulatory Darrel Lopez MD Work Phone: Urology Comment on above: Schedule Ultrasound Start: 12-23-2021 E-mail encounter fro m caregiver Darrel Lopez MD Work Phone: [facility] Start: 12-13-2021 ambulatory [facility] Start: 12-13-2021 Encounter for gynecological examination (general) (routine) without abnormal findings [facility] Start: 12-13-2021 End: 12-13-2021 Patient encounter status Screen/Diagnostic Hosp Work Phone: Mammography Start: 12-13-2021 End: 12-13-2021 Subsequent hospital visit by physician Screen/Diagnostic Mammo [facility] Work Phone: Mammography Comment on above: Encounter for gyneco logical examination (general) (routine) without abnormal findings [Z01.419] Start: 12-06-2021 Refill Rolando Ayala PA-C Work Phone: Urology Comment on above: Refill Request Start: 10-24-2021 End: 10-24-2021 Office outpatient visit 15 minutes Larry Ahn MD Work Phone: Internal Medicine [facility] Comment on above: Neuropathy Start: 10-17-2021 Refill Lulu enciso MD Work Phone: [facility] [place] Comment on above: Refill Request Start: 10-09-2021 Telephone encounter Star Gonzales MD Work Phone: Internal Medicine [facility] [place] Comment on above: Appointment (MEDICAT IONS) Start: 08-08-2021 Patient Msg [facility] Provider [facility] [place] Comment on above: refill for lyrcia Start: 07-31-2021 Telephone encounter Lulu ardon MD Work Phone: [facility] [place] Comment on above: Patient Question Start: 07-09-2021 Refill Rolando Ayala PA-C Work Phone: Urology Comment on above: Refill Request Start: 06-25-2021 End: 06-25-2021 Patient encounter procedure Lulu Luciano MD Work Phone: [facility] [place] Comment on above: Type 2 diabetes porsha itus without complication, without long- term current use of insulin (HCC) (Primary Dx); Chronic right shoulder pain; Neuropathy; Vitamin D deficiency; Hypomagnesemia; Mixed hyperlipidemia; Obesity (BMI 30-39.9); Encounter for long-term current use of medication Start: 02-08-2021 End: 02-08-2021 SAME DAY STAY DIOMEDES COSME DPM [facility] Start: 02-06-2021 Telephone encounter Georgie Townsend APRN.CNP Work Phone: Gastroenterology Comment on above: Patient Update Start: 02-06-2021 End: 02-06-2021 Subsequent hospital visit by physician Helena FONG Work Phone: [facility] Comment on above: WILTON on CPAP; Type 2 diabetes mellitus with other specified complication, unspecified whether intermodal dispatcher insulin use (HCC); Morbid obesity (HCC); Daytime sleepiness; Morbid obesity with BMI of 40.0-44.9, adult (HCC); Back pain, unspecified back location, unspecified back pain laterality, unspecified chronicity; Vitamin D insufficiency Start: 02-04-2021 End: 02-04-2021 Subsequent hospital visit by physician Jerry Tracey MD Work Phone: [facility] Start: 02-01-2021 End: 02-01-2021 Admission to [facility] DIOMEDES COSME DPM [facility] Start: 02-01-2021 End: 02-01-2021 Subsequent hospital visit by physician Eliz Ruelas MD Work Phone: [facility] Start: 01-23-2021 End: 01-23-2021 Subsequent hospital visit by physician Helena FONG Work Phone: [facility] Start: 01-22-2021 Telephone encounter Georgie Townsend APRN.CNP Work Phone: Gastroenterology Comment on above: Appointment Start: 01-02-2020 End: 02-01-2020 Preprocedural examination done Helena FONG Work Phone: [facility] Start: 10-21-2019 End: 10-21-2019 Subsequent hospital visit by physician Eliz Ruelas Work Phone: [facility] [place] [facility] Start: 10-20-2019 End: 10-20-2019 Subsequent hospital visit by physician Lulu Luciano [facility] Procedures Date Procedure Procedure Detail Performing Clinician Start: 09-16-2024 Urnls dip stick/tablet rgnt auto w/o microscopy Pedro Patricia APRN.NUTRITION SERVICES WORKER Work Phone: Start: 07-06-2024 Plain X-ray of shoulder Dr. Lulu enciso MD Work Phone: Start: 07-06-2024 MRI of lower extremity Dr. Lulu Luciano MD Work Phone: Start: 05-26-2024 Open reduction of fracture of radius with internal fixation Dr. Lulu Luciano MD Work Phone: Start: 05-26-[address] Lulu Luciano MD Work Phone: Start: 05-26-2024 Plain x-ray of wrist Dr. Lulu Luciano MD Work Phone: Start: 03-29-2024 UA DIP,URINE HCG (POC) Irasema Blood MD Work Phone: Start: 12-03-2023 Mri spinal canal cervical w/o contrast steffen Mena MARBLE WORKER.NUTRITION SERVICES WORKER Work Phone: Start: 11-20-2023 Urnls dip stick/tablet rgnt auto w/o microscopy Corie Jefferson MARBLE WORKER.NUTRITION SERVICES WORKER Work Phone: Start: 10-16-2023 Nerve conduction studies 5-6 studies Riddhi Vecristavitz PA-C Work Phone: Start: 10-09-2023 Radex hip unilateral with pelvis 2-3 views Pedro Patricia MARBLE WORKER.NUTRITION SERVICES WORKER Work Phone: Start: 09-16-2023 Us lmtd joint/oth nonvasc xtr strux r-t w/img Riddhi Vetovitz PA-C Work Phone: Start: 07-02-2023 Radex sacrum & coccyx minimum 2 views Sudhir Talbot MARBLE WORKER.REHAB NURSE Work Phone: Start: 06-08-2023 End: 06-08-2023 Injection 1 tendon sheath/ligament aponeurosis Riddhi Vetovitz PA-C Work Phone: Start: 05-04-2023 Radex foot complete minimum 3 views Charlie Lauren Work Phone: Start: 04-29-2023 Mri any jt upper extremity w/o contrast steffen Patricia MARBLE WORKER.NUTRITION SERVICES WORKER Work Phone: Start: 04-14-2023 Plain X-ray of shoulder Dr. Lulu enciso Work Phone: Start: 01-26-2023 Radex spine lumbosacral 2/3 views Pedro rosales MARBLE WORKER.NUTRITION SERVICES WORKER Work Phone: Start: 12-15-2022 INFLUENZA VACCINE, AGE 5 MO - 63 YR, QUADRIVALENT (AFLURIA, FLULAVAL, FLUZONE) Lulu Luciano MD Work Phone: Start: 12-10-2022 Radex foot complete minimum 3 views Charlie Rizzo Work Phone: Start: 11-06-2022 End: 11-06-2022 Us pelvic nonobstetric image dcmtn limited/f/u Pedro Petra MARBLE WORKER.NUTRITION SERVICES WORKER Work Phone: Start: 10-28-2022 Urnls dip stick/tablet rgnt auto w/o microscopy Pedro Petra MARBLE WORKER.NUTRITION SERVICES WORKER Work Phone: Start: 09-15-2022 Colonoscopy flx dx w/collj spec when pfrmd Jt Evans MD Work Phone: Start: 09-15-2022 End: 09-15-2022 Gluc bld gluc mntr dev cleared fda spec home use Fernando Doyle MD Work Phone: Start: 09-15-2022 Esophagogastroduodenoscopy transoral diagnostic Jt Evans MD Work Phone: Start: 09-15-2022 Colonoscopy Jt Evans MD Work Phone: Start: 07-16-2022 GIGI SCREENING W FARIDEH Anne-Marie Gilliam MARBLE WORKER.NUTRITION SERVICES WORKER Work Phone: Start: 07-16-2022 Mammography Pedro Patricia MARBLE WORKER.NUTRITION SERVICES WORKER Work Phone: Start: 04-25-2022 Radex clavicle complete Pedro Petra MARBLE WORKER.NUTRITION SERVICES WORKER Work Phone: Start: 03-22-2022 Radex hand minimum 3 views Daniel Luis MD Work Phone: Start: 01-31-2022 INFLUENZA VACCINE QUADRIVALENT 6 MO - 64 YRS IM Anca Wood MD Work Phone: Start: 01-14-2022 Us retroperitoneal real time w/image complete Darrel Lopez MD Work Phone: Start: 01-14-2022 Radex foot complete minimum 3 views Thalia Belcher PA-C Work Phone: Start: 12-23-2021 Urnls dip stick/tablet reagent auto microscopy Bulk Order Provider Start: 12-13-2021 GIGI SCREENING W FARIDEH Virgen MARBLE WORKER.CNM Work Phone: Start: 12-13-2021 Mammography Screen/Diagnostic Hosp Work Phone: Start: 02-06-2021 Comprehensive metabolic panel Helena Forresteru pke PA Work Phone: Start: 02-06-2021 Lipid panel Helena Forresterupke PA Work Phone: Start: 11-15-2020 Mammography Rolando Ayala PA-C Work Phone: Start: 12-11-2015 Replacement of right knee joint DIOMEDES CERDA PPAN DPM Comment on above: unicompartmental Start: 10-18-2015 Cataract (disorder) DIOMEDES BELTRANAN DPM Comment on above: RIGHT EYE AND REPAIRED DETACHED RETNINA WELL. Start: 08-22-2015 Colonoscopy Rolando Ayala PA-C Work Phone: Bone density scan DIOMEDES SUPP AN DPM Comment on above: 2015 section DIOMEDES BELTARNA N DPM Cholecystectomy DIOMEDES SUPPAN DPM Deliveries by (finding) DIOMEDES SUPPAN DPM Comment on above: x4 Entire retina of rig ht eye (body structure) DIOMEDES SUPPAN DPM Comment on above: Repair x2 Excision of bunion DIOMEDES SUP MAURICIO DPM Comment on above: bilateral Extraction of cataract DIOMEDES SUPPAN DPM Comment on above: bilateral Fracture of ankle (disorder) DIOMEDES SUPPAN DPM Comment on above: Bilateral H/O: hysterectomy Status post hysterectomy Sudhir Talbot MARBLE WORKER.REHAB NURSE Work Phone: Ligation of fallopian tube Ana Luisa CHE DAPHNE DPM Comment on above: 2000 AT [facility] Structure of left fo ot (body structure) DIOMEDES DAPHNE DPM Plan of Treatment Date Care Activity Detail Author Start: 2034 Pneumococcal 0-64 years Vaccine (2 of 2 - PPSV23) Pneumococcal 0-64 years Vaccine (2 of 2 - PPSV23) [facility] Start: 05-14-2034 Urine microalbumin profile DTaP,Tdap,Td Vaccine (6 - Td or Tdap) [facility] Start: 02-05-2030 DTaP/Tdap/Td vaccine (5 - Td or Tdap) DTaP/Tdap/Td vaccine (5 - Td or Tdap) [facility] Start: 02-05-2030 Urine microalbumin profile [facility] Start: 09-16-2027 Colonoscopy COLONOSCOPY [facility] Start: 09-16-2027 COLORECTAL CANCER SCREENING COLORECTAL CANCER SCREENING [facility] Start: 09-16-2027 Screening for malignant neoplasm of colon [facility] Start: 11-15-2025 HPV TESTING HPV TESTING [facility] Start: 11-15-2025 PAP TESTING PAP TESTING [facility] Start: 11-15-2025 Screening for malignant neoplasm of cervix [facility] Start: 11-04-2025 Hepatitis B surface antibody level LDL Cholesterol [facility] Start: 11-03-2025 Annual PCP Team Chronic Disease Visit Annual PCP Team Chronic Disease Visit [facility] Start: 09-19-2025 Hepatitis B screening Urine Albumin:Creatinine Ratio [facility] Start: 09-19-2025 Hepatitis B surface antibody level LDL Cholesterol [facility] Start: 09-16-2025 Annual PCP Team Chronic Disease Visit Annual PCP Team Chronic Disease Visit [facility] Start: 09-15-2025 Diabetic foot examination Diabetic Foot Exam [facility] Start: 07-20-2025 Screening for malignant neoplasm of breast Mammogram Screening [facility] Start: 07-12-2025 Annual PCP Team Chronic Disease Visit Annual PCP Team Chronic Disease Visit [facility] Start: 04-01-2025 Creatinine measurement Serum Creatinine [facility] Start: 04-01-2025 Hepatitis B surface antibody level LDL Cholesterol [facility] Start: 03-21-2025 Hemoglobin A1c measurement HbA1C [facility] Start: 02-08-2025 Annual PCP Team Chronic Disease Visit Annual PCP Team Chronic Disease Visit [facility] Start: 12-22-2024 End: 12-22-2024 Patient encounter procedure 12/22/2024 1:45 PM EDT Office Visit Podiatry [address] [place] [address] Charlie Rizzo [address] [place] [address] ulcer Podiatry Comment on above: ulcer Start: 12-16-2024 End: 12-16-2024 Patient encounter procedure [facility] [place] Comment on above: 3 month f/u Medicare wellness/3 month f/u Start: 12-15-2024 End: 12-15-2024 Patient encounter procedure 12/15/2024 2:00 PM EDT Office Visit Podiatry [address] [place] [address] Charlie Rizzo [address] [place] [address] ulcer Podiatry Comment on above: ulcer Start: 12-09-2024 End: 12-09-2024 Patient encounter procedure 12/09/2024 8:45 AM EDT Office Visit Podiatry [address] [place] [address] Charlie Rizzo [address] [place] [address] ulcer Podiatry Comment on above: ulcer Start: 12-01-2024 End: 12-01-2024 Patient encounter procedure 12/01/2024 2:15 PM EDT Office Visit Podiatry [address] [place] [address] Charlie Rizzo [address] [place] [address] ulcer Podiatry Comment on above: ulcer Start: 09-05-2025 Glaucoma screening Dilated Retinal Exam [facility] Start: 11-25-2024 End: 11-25-2024 Patient encounter procedure 11/25/2024 9:00 AM EDT Office Visit Podiatry [address] [place] [address] Charlie Rizzo [address] [place] [address] ulcer Podiatry Comment on above: ulcer Start: 11-21-2024 Influenza vaccination [facility] Start: 11-16-2024 Annual PCP Team Chronic Disease Visit Annual PCP Team Chronic Disease Visit [facility] Start: 11-16-2024 Creatinine measurement Serum Creatinine [facility] Start: 11-16-2024 Hemoglobin A1c measurement HbA1C [facility] Start: 11-15-2024 End: 11-15-2024 Patient encounter procedure 11/15/2024 1:00 PM EDT Office Visit Podiatry [address] [place] [address] Charlie Rizzo [address] [place] [address] ulcer Podiatry Comment on above: ulcer Start: 11-11-2024 End: 11-11-2024 Patient encounter procedure 11/11/2024 10:30 AM EDT Office Visit Podiatry [address] [place] [address] Charlie Rizzo [address] [place] [address] ulcer Podiatry Comment on above: ulcer Start: 11-04-2024 End: 11-04-2024 ambulatory 11/04/2024 12:00 PM EDT Results Only [place] [facility] [address] [place] [address] [place] [facility] Start: 11-01-2024 End: 11-01-2024 ambulatory 11/01/2024 11:00 AM EDT Results Only [place] [facility] [address] [place] [address] [place] [facility] Start: 10-31-2024 End: 10-31-2024 Patient encounter procedure 10/31/2024 8:00 AM EDT Office Visit Podiatry [address] [place] [address] TestCharlie joshua [address] [place] [address] ulcer Podiatry Comment on above: ulcer Start: 10-21-2024 End: 10-21-2024 Patient encounter procedure 10/21/2024 1:00 PM EDT Office Visit Podiatry [address] [place] [address] TestCharlie joshua [address] [place] [address] 3 month follow up Podiatry Comment on above: 3 month follow up Start: 10-17-2024 End: 10-17-2024 Patient encounter procedure 10/17/2024 2:45 PM EDT Office Visit Podiatry [address] [place] [address] TestCharlie joshua [address] [place] [address] 3 month follow up Podiatry Comment on above: 3 month follow up Start: 10-08-2024 Annual PCP Team Chronic Disease Visit Annual PCP Team Chronic Disease Visit [facility] Start: 09-29-2024 Hemoglobin A1c measurement HbA1C [facility] Start: 09-29-2024 End: 09-29-2024 Patient encounter procedure 09/29/2024 9:15 AM EDT Office Visit Podiatry [address] [place] [address] Charlie Rizzo [address] [place] [address] 2 week follow up ulcer Podiatry Comment on above: 2 week follow up ulcer Start: 09-26-2024 End: 09-26-2024 Patient encounter procedure [facility] [place] Comment on above: follow up 3 mo follow up / rev iew current care gaps Start: 09-22-2024 End: 09-22-2024 ambulatory 09/22/2024 9:00 AM EDT Results Only [place] [facility] [address] [place] [address] [place] [facility] Start: 2024 End: 12-20-2024 25-hydroxyvitamin D3 [Mass/volume] in Serum or Plasma VITAMIN D 25 HYDROXY Lab Routine Vitamin D deficiency Expected: 2024 (Approximate), Expires: 12/20/2024 [facility] Comment on above: Expected: 2024 (Approximate), Expi res: 12/20/2024 Start: 2024 End: 12-20-2024 CBC panel - Blood by Automated count COMPLETE BLOOD COUNT Lab Routine Type 2 diabetes mellitus without complication, without long-term current use of insulin (HCC) Expected: 2024 (Approximate), Expires: 12/20/2024 [facility] Comment on above: Expected: 2024 (Approximate), Expi res: 12/20/2024 Start: 2024 End: 12-20-2024 Comprehensive metabolic 2000 panel - Serum or Plasma COMPREHENSIVE METABOLIC PANEL Lab Routine Type 2 diabetes mellitus without complication, without long-term current use of insulin (HCC) Expected: 2024 (Approximate), Expires: 12/20/2024 [facility] Comment on above: Expected: 2024 (Approximate), Expi res: 12/20/2024 Start: 2024 End: 12-20-2024 Hemoglobin A1c in Blood HEMOGLOBIN A1C Lab Routine Type 2 diabetes mellitus without complication, without long-term current use of insulin (HCC) Expected: 2024 (Approximate), Expires: 12/20/2024 [facility] Work Phone: Comment on above: Expected: 2024 (Approximate), Expi res: 12/20/2024 Start: 2024 End: 12-20-2024 Lipid 1996 panel - Serum or Plasma LIPID PANEL, FASTING Lab Routine Type 2 diabetes mellitus without complication, without long-term current use of insulin (HCC) Expected: 2024 (Approximate), Expires: 12/20/2024 [facility] Comment on above: Expected: 2024 (Approximate), Expi res: 12/20/2024 Start: 2024 End: 12-20-2024 Magnesium [Mass/volume] in Serum or Plasma MAGNESIUM Lab Routine Hypomagnesemia Expected: 2024 (Approximate), Expires: 12/20/2024 [facility] Comment on above: Expected: 2024 (Approximate), Expi res: 12/20/2024 Start: 2024 End: 2024 ambulatory 2024 10:00 AM EDT Results Only [facility] [address] [place] [address] [facility] Start: 09-19-2024 End: 09-19-2024 ambulatory 09/19/2024 4:45 PM EDT Results Only [facility] [address] [place] [place] [address] [facility] Start: 09-16-2024 End: 09-16-2024 Patient encounter procedure 09/16/2024 2:20 PM EDT Office Visit Internal Medicine [place] [address] [place] [address] Pedro Patricia APRN.NUTRITION SERVICES WORKER [address] [facility] [place] [address] 3 mo follow up / review current care gaps [facility] [place] Comment on above: 3 mo follow up / review current care gap s Start: 09-16-2024 End: 12-16-2024 Microalbumin/Creatinine [Mass Ratio] in Urine ALBUMIN/CREATININE RATIO, URINE Lab Routine DM (diabetes mellitus), type 2 with neurological complications (HCC) Expected: 09/16/2024, Expires: 12/16/2024 [facility] Work Phone: Comment on above: Expected: 09/16/2024, Expires: Start: 09-15-2024 End: 09-15-2024 Patient encounter procedure 09/15/2024 8:15 AM EDT Office Visit Podiatry [address] [place], [place] [id number] Charlie Rizzo [address] [place] [address] Follow up Podiatry Comment on above: Follow up Start: 09-09-2024 Glaucoma screening Dilated Retinal Exam [facility] Start: 08-05-2024 Diabetic foot examination Diabetic Foot Exam [facility] Start: 07-27-2024 End: 07-27-2024 Patient encounter procedure 07/27/2024 1:40 PM EDT Office Visit [facility] [place] [address] [facility] [place] [address] Lulu Luciano MD [address] [place] [address] 3mth follow up [facility] [place] Comment on above: 3mth follow up Start: 07-20-2024 End: 07-20-2024 Patient encounter procedure 07/20/2024 4:00 PM EDT Appointment Mammogram [address] [place] [address] Mammogram Start: 07-19-2024 Screening for malignant neoplasm of breast Mammogram Screening [facility] Start: 07-12-2024 End: 07-12-2024 Patient encounter procedure 07/12/2024 7:00 PM EDT Office Visit [facility] [place] [address] [place] [address] Lulu Luciano MD [address] [place] [address] 3mth follow up [facility] [place] Comment on above: 3mth follow up Start: 07-06-2024 [facility] Start: 07-06-2024 Annual PCP Team Chronic Disease Visit Annual PCP Team Chronic Disease Visit [facility] Start: 07-04-2024 End: 07-04-2024 Patient encounter procedure 07/04/2024 2:30 PM EDT Office Visit Podiatry [address] [place] [address] Charlie Rizzo [address] [place] [address] 3 week follow up Podiatry Comment on above: 3 week follow up Start: 05-27-2024 End: 05-27-2024 Patient encounter procedure [facility] [place] Comment on above: 3mth follow up Start: 05-26-2024 End: 05-26-2024 Patient encounter procedure 05/26/2024 3:40 PM EST Office Visit OB/Gynecology [address] [place] [address] Yanni Malone MD [address] [place] [address] Post Op OB/Gynecology Comment on above: Post Op Start: 05-26-2024 Anes arthrs/endscpy dstl radius ulna/wrist/hand ANESTH LOWER ARM SURGERY [facility] Start: 05-26-2024 Optx dstl radl i-artic fx/epiphysl sep [address] XART FX/EP SEP3+ [facility] Start: 05-26-2024 Patient discharge [facility] Start: 05-26-2024 Application of ice collar, cap or bag [facility] Start: 05-26-2024 Catheterization of vein [facility] Start: 05-26-2024 Following clinical pathway protocol [facility] Start: 05-26-2024 Procedure discontinued [facility] Start: 05-26-2024 Taking patient vital signs [facility] Start: 05-26-2024 Vital signs measurements [facility] Start: 05-26-2024 [facility] Start: 05-26-2024 Medication education [facility] Start: 05-24-2024 End: 05-24-2024 Patient encounter procedure 05/24/2024 3:15 PM EST Office Visit Podiatry [address] [place] [address] Charlie Rizzo [address] [address] 3 week follow up Podiatry Comment on above: 3 week follow up Start: 05-19-2024 Hemoglobin A1c measurement HbA1C [facility] Start: 05-04-2024 Annual PCP Team Chronic Disease Visit Annual PCP Team Chronic Disease Visit [facility] Start: 05-04-2024 Creatinine measurement Serum Creatinine [facility] Start: 05-03-2024 End: 05-03-2024 Patient encounter procedure 05/03/2024 2:45 PM EST Office Visit Podiatry [address] [place] [address] Charlie Rizzo [address] [id number] 1 month follow up wart under callus Podiatry Comment on above: 1 month follow up wart under callus Start: 04-25-2024 End: 04-25-2024 ambulatory 04/25/2024 9:00 AM EST Results Only [place] [facility] [address] [place] [address] [facility] Start: 04-23-2024 End: 07-23-2024 25-hydroxyvitamin D3 [Mass/volume] in Serum or Plasma VITAMIN D 25 HYDROXY Lab Routine Vitamin D deficiency Expected: 04/23/2024 (Approximate), Expires: 07/23/2024 [facility] Comment on above: Expected: 04/23/2024 (Approximate), Expi res: 07/23/2024 Start: 04-23-2024 End: 07-23-2024 CBC panel - Blood by Automated count COMPLETE BLOOD COUNT Lab Routine Type 2 diabetes mellitus without complication, without long-term current use of insulin (HCC) Expected: 04/23/2024 (Approximate), Expires: 07/23/2024 [facility] Work Phone: Comment on above: Expected: 04/23/2024 (Approximate), Expi res: 07/23/2024 Start: 04-23-2024 End: 07-23-2024 Comprehensive metabolic 2000 panel - Serum or Plasma COMPREHENSIVE METABOLIC PANEL Lab Routine Type 2 diabetes mellitus without complication, without long-term current use of insulin (HCC) Vitamin D deficiency Hypercalcemia Expected: 04/23/2024 (Approximate), Expires: 07/23/2024 [facility] Comment on above: Expected: 04/23/2024 (Approximate), Expi res: 07/23/2024 Start: 04-23-2024 End: 07-23-2024 Hemoglobin A1c in Blood HEMOGLOBIN A1C Lab Routine Type 2 diabetes mellitus without complication, without long-term current use of insulin (HCC) Expected: 04/23/2024 (Approximate), Expires: 07/23/2024 [facility] Comment on above: Expected: 04/23/2024 (Approximate), Expi res: 07/23/2024 Start: 04-23-2024 End: 07-23-2024 Lipid 1996 panel - Serum or Plasma LIPID PANEL BASIC Lab Routine Type 2 diabetes mellitus without complication, without long-term current use of insulin (HCC) Expected: 04/23/2024 (Approximate), Expires: 07/23/2024 [facility] Comment on above: Expected: 04/23/2024 (Approximate), Expi res: 07/23/2024 Start: 04-23-2024 End: 07-23-2024 Magnesium [Mass/volume] in Serum or Plasma MAGNESIUM Lab Routine Hypomagnesemia Expected: 04/23/2024 (Approximate), Expires: 07/23/2024 [facility] Comment on above: Expected: 04/23/2024 (Approximate), Expi res: 07/23/2024 Start: 04-22-2024 End: 04-22-2024 Patient encounter procedure 04/22/2024 2:00 PM EST Office Visit OB/Gynecology [address] [place] [address] Ynani Malone MD [address] [place] [address] Post Op OB/Gynecology Comment on above: Post Op Start: 04-22-2024 End: 04-22-2024 ambulatory 04/22/2024 1:00 PM EST Results Only [place] [facility] [address] [place] [address] [place] [facility] Start: 04-18-2024 End: 07-18-2024 Bacteria identified in Urine by Culture BACTERIAL CULTURE, URINE Microbiology Routine Dysuria Expected: 04/18/2024, Expires: 07/18/2024 [facility] Comment on above: Expected: 04/18/2024, Expires: Start: 04-18-2024 End: 07-18-2024 Urinalysis complete panel - Urine URINALYSIS, WITH MICROSCOPIC Lab Routine Dysuria Expected: 04/18/2024, Expires: 07/18/2024 [facility] Work Phone: Comment on above: Expected: 04/18/2024, Expires: Start: 04-15-2024 Anesthesia intraperitoneal lower abd w/laps nos ANESTH SURG LOWER ABDOMEN [facility] Start: 04-15-2024 Cystourethroscopy CYSTOURETHROSCOPY [facility] Start: 04-15-2024 Laps total hysterect 250 gm/< w/rmvl tube/ovary TLH W/T/O 250 G OR LESS [facility] Start: 04-15-2024 Ambulation without limitation [facility] Start: 04-15-2024 Medication education [facility] Start: 04-15-2024 Patient discharge [facility] Start: 04-15-2024 Planned voiding [facility] Start: 04-15-2024 Procedure discontinued [facility] Start: 04-15-2024 Taking patient vital signs [facility] Start: 04-15-2024 Vital signs measurements [facility] Start: 04-15-2024 [facility] Start: 04-07-2024 Creatinine measurement Serum Creatinine [facility] Start: 04-07-2024 Hepatitis B screening Urine Albumin:Creatinine Ratio [facility] Start: 04-07-2024 Hepatitis B surface antibody level LDL Cholesterol [facility] Start: 04-06-2024 Annual PCP Team Chronic Disease Visit Annual PCP Team Chronic Disease Visit [facility] Start: 04-01-2024 End: 04-01-2024 Patient encounter procedure 04/01/2024 2:20 PM EST Office Visit Podiatry [address] [place] [address] Charlie Rizzo [address] [address] 3 month follow up nail care Podiatry Comment on above: 3 month follow up nail care Start: 03-31-2024 End: 06-30-2024 Comprehensive metabolic 2000 panel - Serum or Plasma COMPREHENSIVE METABOLIC PANEL Lab Routine Preop exam for internal medicine Expected: 03/31/2024, Expires: 06/30/2024 [facility] Work Phone: Comment on above: Expected: 03/31/2024, Expires: Start: 03-31-2024 End: 03-31-2024 Patient encounter procedure 03/31/2024 9:20 AM EST Office Visit [facility] [place] [address] [place] [address] Sudhir Talbot APRN.REHAB NURSE [address] [place] [address] Prep surgery evaluation [facility] [place] Comment on above: Prep surgery evaluation Start: 03-30-2024 End: 03-30-2024 Patient encounter procedure 03/30/2024 11:10 AM EST Office Visit OB/Gynecology [address] [place] [address] Yanni Malone MD [address] [place] [address] Hystorectomy consult OB/Gynecology Comment on above: Hystorectomy consult Start: 03-29-2024 End: 03-29-2024 Patient encounter procedure 03/29/2024 1:40 PM EST Office Visit OB/Gynecology [address] [place] [address] Irasema Blood MD [address] [place] [address] Menorrhagia with irregular cycle [N92.1] OB/Gynecology Comment on above: Menorrhagia with irregular cycle [N92.1] Start: 03-23-2024 Medicare Advantage Annual Wellness Visit Medicare Advantage Annual Wellness Visit [facility] Start: 03-22-2024 End: 03-22-2024 Patient encounter procedure 03/22/2024 11:30 AM EST Appointment Radiology [address] [place] [address] Menorrhagia with irregular cycle [N92.1] Radiology Comment on above: Menorrhagia with irregular cycle [N92.1] Start: 03-21-2024 End: 06-20-2024 Estradiol (E2) [Mass/volume] in Serum or Plasma [facility] Comment on above: Expected: 03/21/2024, Expires: Start: 03-21-2024 End: 06-20-2024 Follitropin [Units/volume] in Serum or Plasma [facility] Comment on above: Expected: 03/21/2024, Expires: Start: 02-29-2024 End: 02-29-2024 Patient encounter procedure 02/29/2024 9:30 AM EST Office Visit Orthopaedics [address] [place] [address] Riddhi Rivera PA-C [address] [place] [address] Check my elbow Orthopaedics Comment on above: Check my elbow Start: 02-23-2024 End: 02-23-2024 Patient encounter procedure 02/23/2024 10:45 AM EST Office Visit Podiatry [address] [place] [address] Charlie Rizzo [address] [place] [address] 3 month follow up nail care Podiatry Comment on above: 3 month follow up nail care Start: 02-16-2024 End: 02-16-2024 Patient encounter procedure 02/16/2024 1:00 PM EST Office Visit Podiatry [address] [facility] [place] [address] Charlie Rizzo [address] [facility] [place] [address] 3 month follow up nail care Podiatry Comment on above: 3 month follow up nail care Start: 02-12-2024 End: 02-12-2024 Patient encounter procedure 02/12/2024 1:00 PM EST Office Visit Podiatry [address] [place] [facility] [address] Charlie Rizzo [address] [address] 3 month follow up nail care Podiatry Comment on above: 3 month follow up nail care Start: 02-09-2024 End: 02-09-2024 Patient encounter procedure 02/09/2024 6:00 PM EST Office Visit Internal Medicine [place] [address] [place] [address] Lulu Luciano MD [address] [facility] [place] [address] 3mth follow u [facility] [place] Comment on above: 3mth follow u Start: 02-01-2024 End: 02-01-2024 Patient encounter procedure 02/01/2024 4:00 PM EST Office Visit Orthopaedics [address] [facility] [place] [address] Brendan Flor MD [address] [facility] [place] [address] Post op pain back in my hand and elbow Orthopaedics Comment on above: Post op pain back in my hand and elbow Start: 01-27-2024 Annual PCP Team Chronic Disease Visit Annual PCP Team Chronic Disease Visit [facility] Start: 01-12-2024 End: 01-12-2024 Patient encounter procedure 01/12/2024 10:15 AM EDT Office Visit Podiatry [address] [place] [address] HermesEleonora joshuaew [address] [place] [address] ulcer Podiatry Comment on above: ulcer Start: 01-07-2024 End: 01-07-2024 Admission to same day surgery center [facility] Surgery Comment on above: CERVICAL EPIDURAL BLOCK W/INJECTION(S) N ON NEUROLYTIC SUBSTANCE(S) W/IMAGE GUIDANCE Start: 01-07-2024 Subsequent hospital visit by physician [facility] Comment on above: Spinal stenosis of cervical region [M48. 02], DDD (degenerative disc disease), cervical [M50.30] Start: 01-07-2024 End: 01-07-2024 Njx dx/ther sbst intrlmnr crv/thrc w/img gdn [place] OR Start: 01-04-2024 End: 01-04-2024 Patient encounter procedure 01/04/2024 2:30 PM EDT Office Visit Orthopaedics [address] [place] [address] Brendan Flor MD [address] [place] [address] Post op right elbow ulnar nerve decompression Orthopaedics Comment on above: Post op right elbow ulnar nerve decompre ssion Start: 01-01-2024 Hemoglobin A1c measurement HbA1C [facility] Start: 12-23-2023 Annual PCP Team Chronic Disease Visit Annual PCP Team Chronic Disease Visit [facility] Start: 12-21-2023 End: 12-21-2023 Patient encounter procedure 12/21/2023 12:45 PM EDT Office Visit Orthopaedics [address] [place] [address] Brendan Flor MD [address] [place] [address] Post op right elbow ulnar nerve decompression - ok per [facility] Comment on above: Post op right elbow ulnar nerve decompre ssion - ok per [facility] Start: 12-19-2023 End: 12-19-2023 Patient encounter procedure 12/19/2023 11:50 AM EDT Immunization [facility] [place] [address] [place] [address] [place], Immunization Clinic Nurse [address] [facility] [place] [address] na Family [facility] Comment on above: na Start: 12-07-2023 End: 12-07-2023 Patient encounter procedure 12/07/2023 2:00 PM EDT Office Visit Orthopaedics [address] [place] [address] Riddhi Rivera PA-C [address] [place] [address] Post op right elbow ulnar nerve decompression Orthopaedics Comment on above: Post op right elbow ulnar nerve decompre ssion Start: 12-03-2023 End: 12-03-2023 Patient encounter procedure Neurology Comment on above: WILTON on CPAP [G47.33] Spinal stenosis of c ervical region [M48.02]; Osteoarthritis of spine with radiculopathy, 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 02] Start: 11-27-2023 End: 11-27-2023 Admission to same day surgery center 11/27/2023 12:34 PM EDT - 11/27/2023 1:48 PM EDT Surgery [facility] [address] [place] [address] Brendan Flor MD [address] [place] [address] DECOMPRESSION NERVE ULNAR ELBOW [facility] Comment on above: DECOMPRESSION NERVE ULNAR ELBOW Start: 11-27-2023 End: 11-27-2023 Neuroplasty &/transposition ulnar nerve elbow DECOMPRESSION NERVE ULNAR ELBOW Ulnar neuropathy of right upper extremity 11/27/2023 12:34 PM EDT ME OR Start: 11-27-2023 Subsequent hospital visit by physician 11/27/2023 12:34 PM EDT Hospital Encounter [facility] [address] [place] [address] Brendan Flor MD [address] [place] [address] 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] [facility] Comment on above: Ulnar neuropathy of right upper extremit y [G56.21] Start: 11-27-2023 End: 11-27-2023 Admission to same day surgery center 11/27/2023 10:44 AM EDT - 11/27/2023 11:58 AM EDT Surgery [facility] [address] [place] [address] Brendan Flor MD [address] [place] [address] DECOMPRESSION NERVE ULNAR ELBOW [facility] Comment on above: DECOMPRESSION NERVE ULNAR ELBOW Start: 11-27-2023 End: 11-27-2023 Neuroplasty &/transposition ulnar nerve elbow DECOMPRESSION NERVE ULNAR ELBOW Ulnar neuropathy of right upper extremity 11/27/2023 10:44 AM EDT ME OR Start: 11-27-2023 Subsequent hospital visit by physician 11/27/2023 10:44 AM EDT Hospital Encounter [facility] [address] [place] [address] Brendan Flor MD [address] [place] [address] 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] [facility] Comment on above: Ulnar neuropathy of right upper extremit y [G56.21] Start: 11-27-2023 End: 11-27-2023 Neuroplasty &/transposition ulnar nerve elbow [facility] [place] Start: 11-22-2023 Covid-19 Vaccine ( season) Covid-19 Vaccine ( season) [facility] Start: 11-22-2023 Covid-19 Vaccine ( season) Covid-19 Vaccine () [facility] Start: 11-22-2023 Influenza vaccination Influenza Vaccine (#1) [facility] Start: 11-20-2023 End: 11-20-2023 Patient encounter procedure 11/20/2023 1:30 PM EDT Office Visit [facility] [address] [facility] [place] [address] Corie Jefferson APRN.[employer] [address] [place] [address] Burning and pain in my left ovary OB/Gynecology Comment on above: Burning and pain in my left ovary Start: 11-17-2023 End: 11-17-2023 Patient encounter procedure 11/17/2023 3:00 PM EDT Office Visit Internal Medicine [place] [address] [place] [address] Pedro Patricia APRN.[employer] [address] [place] [address] 6 week follow up [facility] [place] Comment on above: 6 week follow up Start: 11-17-2023 End: 02-16-2024 25-hydroxyvitamin D3 [Mass/volume] in Serum or Plasma [facility] Comment on above: Expected: 11/17/2023, Expires: Start: 11-17-2023 End: 02-16-2024 Cobalamin (Vitamin B12) [Mass/volume] in Serum or Plasma [facility] Comment on above: Expected: 11/17/2023, Expires: Start: 11-17-2023 End: 02-16-2024 Comprehensive metabolic 2000 panel - Serum or Plasma [facility] Comment on above: Expected: 11/17/2023, Expires: Start: 11-17-2023 End: 02-16-2024 Ferritin [Mass/volume] in Serum or Plasma [facility] Comment on above: Expected: 11/17/2023, Expires: Start: 11-17-2023 End: 02-16-2024 Hemoglobin A1c in Blood [facility] Comment on above: Expected: 11/17/2023, Expires: Start: 11-17-2023 End: 02-16-2024 Iron and Iron binding capacity panel - Serum or Plasma [facility] Work Phone: Comment on above: Expected: 11/17/2023, Expires: Start: 11-17-2023 End: 02-16-2024 Magnesium [Mass/volume] in Serum or Plasma [facility] Comment on above: Expected: 11/17/2023, Expires: Start: 11-17-2023 End: 02-16-2024 Thyrotropin [Units/volume] in Serum or Plasma [facility] Comment on above: Expected: 11/17/2023, Expires: Start: 11-12-2023 End: 11-12-2023 Patient encounter procedure 11/12/2023 10:30 AM EDT Office Visit Podiatry [address] [place] [address] Charlie Rizzo [address] [place] [address] 3 month diabetic nail care Podiatry Comment on above: 3 month diabetic nail care Start: 11-05-2023 End: 11-05-2023 Patient encounter procedure 11/05/2023 3:00 PM EDT Office Visit Pain Management [address] [address] Serenity Mena APRN.[employer] WORKER [address] [place] [address] Follow up after completing PT Pain Management Comment on above: Follow up after completing PT Start: 11-02-2023 End: 11-02-2023 Patient encounter procedure 11/02/2023 3:00 PM EDT Office Visit Orthopaedics [address] [place] [address] Riddhi Rivera PA-C [address] [place] [address] Follow up after test results, next steps Orthopaedics Comment on above: Follow up after test results, next steps Start: 10-29-2023 ANNUAL PCP TEAM CHRONIC DISEASE VISIT ANNUAL PCP TEAM CHRONIC DISEASE VISIT [facility] Start: 10-29-2023 COVID-19 VACCINE (#1) COVID-19 VACCINE (#1) [facility] Comment on above: Postponed from 03/23/1970 (Declined at t his time) Start: 10-18-2023 ANNUAL PCP TEAM CHRONIC DISEASE VISIT ANNUAL PCP TEAM CHRONIC DISEASE VISIT [facility] Start: 10-16-2023 End: 10-16-2023 ambulatory Neurology Comment on above: Bilateral hand numbness [R20.0] R>L UE r R>L UE Start: 10-15-2023 End: 10-15-2023 ambulatory 10/15/2023 5:15 PM EDT OT/PT/Speech Visit [facility] [address] [place] [address] Jovon Ortiz, PT [address] [place], [place] [id number] 79.18 (ICD-10-CM) - Cervical myofascial pain syndrome [facility] Comment on above: 79.18 (ICD-10-CM) - Cervical myofascial pain syndrome Start: 10-09-2023 End: 10-09-2023 Patient encounter procedure 10/09/2023 3:40 PM EDT Office Visit Internal Medicine [place] [address] [place] [phone] Pedro Patricia APRN.[facility] [address] [place] [address] Left leg pain and wondering about miloxicam knee p [facility] [place] Comment on above: Left leg pain and wondering about miloxi cam knee p Start: 10-06-2023 End: 10-06-2023 ambulatory 10/06/2023 1:30 PM EDT OT/PT/Speech Visit [facility] [address] [place] [address] Jovon Ortiz, PT [address] [place], [place] [id number] M79.18 (ICD-10-CM) - Cervical myofascial pain syndrome [facility] Comment on above: M79.18 (ICD-10-CM) - Cervical myofascial pain syndrome Start: 10-06-2023 End: 10-06-2023 Patient encounter procedure 10/06/2023 10:40 AM EDT Office Visit Internal Medicine [place] [address] [place] [address] Pedro Patricia APRN.[facility] [address] [place], [place] [address] 3MTH FOLLOW UP [facility] [place] Comment on above: 3MTH FOLLOW UP Start: 10-05-2023 End: 10-05-2023 ambulatory 10/05/2023 1:40 PM EDT Procedure Neurology [address] [place], [place] [address] Bilateral hand numbness [R20.0] Neurology Comment on above: Bilateral hand numbness [R20.0] Start: 10-01-2023 ANNUAL PCP TEAM CHRONIC DISEASE VISIT ANNUAL PCP TEAM CHRONIC DISEASE VISIT [facility] Start: 09-25-2023 End: 09-25-2023 ambulatory 09/25/2023 11:45 AM EDT OT/PT/Speech Visit [facility] [address] [place] [address] Jovon Ortiz, PT [address] [place], [place] [id number] 79.18 (ICD-10-CM) - Cervical myofascial pain syndrome [facility] Comment on above: 79.18 (ICD-10-CM) - Cervical myofascial pain syndrome Start: 09-17-2023 End: 09-17-2023 ambulatory 09/17/2023 10:00 AM EDT OT/PT/Speech Visit [facility] [address] [place] [address] Joovn Ortiz, PT [address] [place] [id number] 79.18 (ICD-10-CM) - Cervical myofascial pain syndrome [facility] Comment on above: 79.18 (ICD-10-CM) - Cervical myofascial pain syndrome Start: 09-16-2023 End: 09-16-2023 Patient encounter procedure 09/16/2023 11:00 AM EDT [facility] [address] [place], [place] [phone] us rt elbow to attend [facility] Comment on above: us rt elbow to attend Start: 09-11-2023 End: 09-11-2023 ambulatory 09/11/2023 9:30 AM EDT OT/PT/Speech Visit [facility] [address] [place] [address] Jovon Ortiz, PT [address] [place] [address] 79.18 (ICD-10-CM) - Cervical myofascial pain syndrome [facility] Comment on above: 79.18 (ICD-10-CM) - Cervical myofascial pain syndrome Start: 09-02-2023 Glaucoma screening Dilated Retinal Exam [facility] Start: 09-02-2023 Hepatitis C antibody, confirmatory test DILATED RETINAL EXAM [facility] Start: 09-01-2023 3 comp foot exam completed DIABETIC FOOT EXAM [facility] Start: 09-01-2023 Diabetic foot examination Diabetic Foot Exam [facility] Start: 09-01-2023 End: 09-01-2023 ambulatory 09/01/2023 1:30 PM EDT OT/PT/Speech Visit [facility] [address] [place] [address] Jovon Ortiz, PT [address] [place] [address] 79.18 (ICD-10-CM) - Cervical myofascial pain syndrome [facility] Comment on above: 79.18 (ICD-10-CM) - Cervical myofascial pain syndrome Start: 08-24-2023 End: 08-24-2023 Patient encounter procedure 08/24/2023 9:00 AM EDT Office Visit Orthopaedics [address] [place] [address] Riddhi Rivera PA-C [address] [place] [address] Post op right middle and ring trigger finger releases Orthopaedics Comment on above: Post op right middle and ring trigger fi nger releases Start: 08-24-2023 End: 08-24-2023 ambulatory 08/24/2023 7:45 AM EDT OT/PT/Speech Visit [facility] [address] [place] [address] Jovon Ortiz, PT [address] [place], [place] [phone] neck pain [facility] Comment on above: neck pain Start: 08-14-2023 End: 08-14-2023 ambulatory 08/14/2023 3:45 PM EDT OT/PT/Speech Visit [facility] [address] [place] [address] Jovon Ortiz, PT [address] [place] [address] neck pain [facility] Comment on above: neck pain Start: 08-10-2023 End: 08-10-2023 ambulatory 08/10/2023 9:15 AM EDT OT/PT/Speech Visit [facility] [address] [place] [address] Jovon Ortiz, PT [address] [place], [place] [id number] H81.10 (ICD-10-CM) - Benign paroxysmal positional vertigo, unspecified laterality [facility] Comment on above: H81.10 (ICD-10-CM) - Benign paroxysmal p ositional vertigo, unspecified laterality Start: 08-06-2023 End: 08-06-2023 Patient encounter procedure 08/06/2023 10:45 AM EDT Office Visit Podiatry [address] [place] [address] Eleonora Rizzoew [address] [place] [address] 1 mo follow up Podiatry Comment on above: 1 mo follow up Start: 08-04-2023 Hemoglobin A1c measurement HbA1C [facility] Start: 08-04-2023 Hemoglobin A1c/Hemoglobin.total in Blood HbA1C [facility] Start: 08-03-2023 End: 08-03-2023 ambulatory 08/03/2023 9:15 AM EDT OT/PT/Speech Visit [facility] [address] [place] [address] Jovon Ortiz, PT [address] [place] [address] H81.10 (ICD-10-CM) - Benign paroxysmal positional vertigo, unspecified laterality [facility] Comment on above: H81.10 (ICD-10-CM) - Benign paroxysmal p ositional vertigo, unspecified laterality Start: 07-27-2023 End: 07-27-2023 Patient encounter procedure 07/27/2023 2:30 PM EDT Office Visit Orthopaedics [address] [place] [address] Riddhi Rivera PA-C [address] [place] [address] Post op right middle and ring trigger finger releases Orthopaedics Comment on above: Post op right middle and ring trigger fi nger releases Start: 07-27-2023 End: 07-27-2023 ambulatory 07/27/2023 12:30 PM EDT OT/PT/Speech Visit [facility] [address] [place] [address] Janel Bahena PTA [address] [place] [address] H81.10 (ICD-10-CM) - Benign paroxysmal positional vertigo, unspecified laterality [place] [facility] Comment on above: H81.10 (ICD-10-CM) - Benign paroxysmal p ositional vertigo, unspecified laterality Start: 07-17-2023 Mammography [facility] Start: 07-17-2023 Screening for malignant neoplasm of breast Mammogram Screening [facility] Start: 07-16-2023 ANNUAL PCP TEAM CHRONIC DISEASE VISIT ANNUAL PCP TEAM CHRONIC DISEASE VISIT [facility] Start: 07-16-2023 SERUM CREATININE SERUM CREATININE [facility] Start: 06-15-2023 Hepatitis B Vaccine (3 of 3 - 19+ 3-dose series) Hepatitis B Vaccine (3 of 3 - 19+ 3-dose series) [facility] Start: 05-27-2023 ANNUAL PCP TEAM CHRONIC DISEASE VISIT ANNUAL PCP TEAM CHRONIC DISEASE VISIT [facility] Start: 04-25-2023 ANNUAL PCP TEAM CHRONIC DISEASE VISIT ANNUAL PCP TEAM CHRONIC DISEASE VISIT [facility] Start: 03-22-2023 ANNUAL PCP TEAM CHRONIC DISEASE VISIT ANNUAL PCP TEAM CHRONIC DISEASE VISIT [facility] Start: 03-22-2023 Hepatitis B screening URINE ALBUMIN:CREATININE RATIO [facility] Start: 03-22-2023 Hepatitis B surface antibody level LDL CHOLESTEROL [facility] Start: 03-22-2023 SERUM CREATININE SERUM CREATININE [facility] Start: 01-31-2023 ANNUAL PCP TEAM CHRONIC DISEASE VISIT ANNUAL PCP TEAM CHRONIC DISEASE VISIT [facility] Start: 01-14-2023 Hemoglobin A1c/Hemoglobin.total in Blood HBA1C [facility] Start: 01-12-2023 Hepatitis B Vaccine (2 of 3 - 19+ 3-dose series) Hepatitis B Vaccine (2 of 3 - 19+ 3-dose series) [facility] Start: 12-13-2022 Mammography MAMMOGRAM [facility] Start: 11-21-2022 Covid-19 Vaccine ( season) Covid-19 Vaccine ( season) [facility] Start: 11-21-2022 Influenza vaccination [facility] Start: 11-15-2022 Screening for malignant neoplasm of breast Breast cancer screen [facility] Start: 10-24-2022 ANNUAL PCP TEAM CHRONIC DISEASE VISIT ANNUAL PCP TEAM CHRONIC DISEASE VISIT [facility] Start: 10-24-2022 COVID-19 VACCINE (#1) COVID-19 VACCINE (#1) [facility] Comment on above: Postponed from 03/23/1970 (Declined at t his time) Start: 10-24-2022 HEPATITIS B (1 of 3 - Risk 3-dose series) [facility] Comment on above: Postponed from 1988 (Declined at t his time) Postponed from 09/20 (Declined at this time) Start: 10-24-2022 HIV SCREENING HIV SCREENING [facility] Comment on above: Postponed from 09/21/1987 (Declined at t his time) Start: 10-24-2022 PNEUMOCOCCAL (2 - PCV) PNEUMOCOCCAL (2 - PCV) [facility] Comment on above: Postponed from 01/09/2021 (Declined at t his time) Start: 09-19-2022 Hemoglobin A1c/Hemoglobin.total in Blood HBA1C [facility] Start: 07-16-2022 Hepatitis C antibody, confirmatory test DILATED RETINAL EXAM [facility] Start: 06-25-2022 3 comp foot exam completed DIABETIC FOOT EXAM [facility] Start: 06-25-2022 ANNUAL PCP TEAM CHRONIC DISEASE VISIT ANNUAL PCP TEAM CHRONIC DISEASE VISIT [facility] Start: 06-17-2022 End: 06-18-2023 PELVIC US WHI PELVIC US WHI Anc Imaging Routine Pelvic pain in female Breakthrough bleeding associated with intrauterine device (IUD) Expected: 06/17/2022, Expires: 06/18/2023 [facility] Work Phone: Comment on above: Expected: 06/17/2022, Expires: Start: 06-05-2022 Hepatitis B surface antibody level LDL CHOLESTEROL [facility] Start: 03-05-2022 End: 05-05-2022 ALBUMIN/CREAT RATIO RND UR ALBUMIN/CREAT RATIO RND UR Lab Routine Type 2 diabetes mellitus without complication, without long-term current use of insulin (HCC) Expected: 03/05/2022, Expires: 05/05/2022 [facility] Work Phone: Comment on above: Expected: 03/05/2022, Expires: Start: 03-05-2022 End: 05-05-2022 Hemoglobin A1c in Blood HGB A1C Lab Routine Type 2 diabetes mellitus without complication, without long-term current use of insulin (HCC) Expected: 03/05/2022, Expires: 05/05/2022 [facility] Work Phone: Comment on above: Expected: 03/05/2022, Expires: 3 Start: 02-06-2022 Hemoglobin A1c measurement A1C test (Diabetic or Prediabetic) [facility] Start: 02-06-2022 Lipid panel Lipid screen [facility] Start: 01-01-2022 Hepatitis C antibody, confirmatory test DILATED RETINAL EXAM [facility] Start: 12-25-2021 End: 02-24-2022 ALBUMIN/CREAT RATIO RND UR ALBUMIN/CREAT RATIO RND UR Lab Routine Type 2 diabetes mellitus without complication, without long-term current use of insulin (HCC) Expected: 12/25/2021 (Approximate), Expires: 02/24/2022 [facility] Work Phone: Comment on above: Expected: 12/25/2021 (Approximate), Expi res: 02/24/2022 Start: 12-25-2021 End: 02-24-2022 CBC panel - Blood by Automated count CBC Lab Routine Encounter for long-term current use of medication Expected: 12/25/2021 (Approximate), Expires: 02/24/2022 [facility] Work Phone: Comment on above: Expected: 12/25/2021 (Approximate), Expi res: 02/24/2022 Start: 12-25-2021 End: 02-24-2022 Comprehensive metabolic 2000 panel - Serum or Plasma COMP METABOLIC PANEL Lab Routine Type 2 diabetes mellitus without complication, without long-term current use of insulin (HCC) Encounter for long-term current use of medication Expected: 12/25/2021 (Approximate), Expires: 02/24/2022 [facility] Work Phone: Comment on above: Expected: 12/25/2021 (Approximate), Expi res: 02/24/2022 Start: 12-25-2021 End: 02-24-2022 Hemoglobin A1c/Hemoglobin.total in Blood HGB A1C Lab Routine Type 2 diabetes mellitus without complication, without long-term current use of insulin (HCC) Expected: 12/25/2021 (Approximate), Expires: 02/24/2022 [facility] Work Phone: Comment on above: Expected: 12/25/2021 (Approximate), Expi res: 02/24/2022 Start: 12-25-2021 End: 02-24-2022 LIPID PANEL BASIC LIPID PANEL BASIC Lab Routine Mixed hyperlipidemia Expected: 12/25/2021 (Approximate), Expires: 02/24/2022 [facility] Work Phone: Comment on above: Expected: 12/25/2021 (Approximate), Expi res: 02/24/2022 Start: 12-25-2021 End: 02-24-2022 Magnesium [Mass/volume] in Serum or Plasma MAGNESIUM BLD Lab Routine Hypomagnesemia Expected: 12/25/2021 (Approximate), Expires: 02/24/2022 [facility] Work Phone: Comment on above: Expected: 12/25/2021 (Approximate), Expi res: 02/24/2022 Start: 12-25-2021 End: 02-24-2022 VITAMIN D 25 HYDROXY VITAMIN D 25 HYDROXY Lab Routine Vitamin D deficiency Expected: 12/25/2021 (Approximate), Expires: 02/24/2022 [facility] Work Phone: Comment on above: Expected: 12/25/2021 (Approximate), Expi res: 02/24/2022 Start: 12-06-2021 Hemoglobin A1c/Hemoglobin.total in Blood HBA1C [facility] Start: 11-21-2021 Influenza vaccination [facility] Start: 11-15-2021 Hepatitis B screening URINE ALBUMIN:CREATININE RATIO [facility] Start: 11-15-2021 Mammography MAMMOGRAM [facility] Start: 10-24-2021 End: 12-24-2021 INSULIN LIK GR FAC I INSULIN LIK GR FAC I Lab Routine Neuropathy Expected: 10/24/2021, Expires: 12/24/2021 [facility] Work Phone: Comment on above: Expected: 10/24/2021, Expires: 2 Start: 10-15-2021 DTaP/Tdap/Td vaccine (3 - Td) [facility] Start: 03-06-2021 End: 03-06-2021 ambulatory 03/06/2021 Virtual Visit Weight Management Eliz Ruelas MD [address] [place], [place] [phone] [facility] Start: 02-04-2021 End: 02-04-2021 ambulatory 02/04/2021 Virtual Visit Weight Management Frieda Dunn MS, RD, LD [address] [place], [place] [phone] [facility] Start: 02-01-2021 End: 02-01-2021 Patient encounter procedure 02/01/2021 Office Visit Weight Management Eliz Ruelas MD [address] [place], [place] [id number] [facility] Start: 01-25-2021 End: 01-25-2021 ambulatory 01/25/2021 Virtual Visit Bariatrics Jennifer Katz RD, LD [address] [place], [place] [phone] Bariatric Care [facility] Start: 01-09-2021 PNEUMOCOCCAL (2 - PCV) PNEUMOCOCCAL (2 - PCV) [facility] Start: 01-09-2021 Pneumococcal vaccination Pneumococcal Vaccine (2 - PCV) [facility] Start: 11-21-2020 Influenza vaccination Flu vaccine (#1) [facility] Start: 08-21-2020 Colonoscopy COLONOSCOPY [facility] Start: 08-21-2020 COLORECTAL CANCER SCREENING COLORECTAL CANCER SCREENING [facility] Start: 11-22-2019 Influenza vaccination Flu vaccine (#1) [facility] Start: 11-15-2019 End: 11-15-2019 Appointment 11/15/2019 Appointment IP Unit Jerry Tracey MD [address] [place] [address] [phone] [facility] Start: 10-24-2019 End: 10-24-2019 Office Visit 10/24/2019 Office Visit Weight Management Tana Mendoza, GER, LD [address] [place] [address] [phone] [facility] Start: 10-21-2019 End: 10-21-2019 Office Visit 10/21/2019 Office Visit Weight Management Eliz Ruelas MD [address] [place] [address] [phone] [facility] Start: 09-21-2019 Screening for malignant neoplasm of breast Breast cancer screen [facility] [place] Start: 09-21-2019 Screening for malignant neoplasm of colon Colon cancer screen colonoscopy [place], [place] Start: 09-21-2019 Shingles Vaccine (1 of 2) [facility] 2[facility] [place] [place] Start: 06-02-2019 Annual Wellness Visit (AWV) Annual Wellness Visit (AWV) [facility] Start: 2014 COLOGUARD (FIT-DNA) COLOGUARD (FIT-DNA) [facility] Start: [address] COLONOGRAPHY [facility] Start: 2014 FECAL OCCULT BLOOD FECAL OCCULT BLOOD [facility] Start: 2014 Screening for malignant neoplasm of colon [facility] Start: 2014 SIGMOIDOSCOPY SIGMOIDOSCOPY [facility] Start: 09-21-1999 Screening for malignant neoplasm of cervix [facility] Start: 1990 Screening for malignant neoplasm of cervix [facility] Start: 1988 HEPATITIS B (1 of 3 - Risk 3-dose series) HEPATITIS B (1 of 3 - Risk 3-dose series) [facility] Start: 1988 Hepatitis B vaccine (1 of 3 - Risk 3-dose series) Hepatitis B vaccine (1 of 3 - Risk 3-dose series) [facility] Start: 09-21-1987 Anxiety Screening Anxiety Screening [facility] Start: 09-21-1987 Diabetic microalbuminuria test Diabetic microalbuminuria test [facility] Start: 09-21-1987 HIV SCREENING HIV SCREENING [facility] Start: 1984 HIV screening HIV screen [facility] Start: 1981 COVID-19 Vaccine (1) COVID-19 Vaccine (1) [facility] Start: 09-21-1979 Diabetic foot examination Diabetic foot exam [facility] Start: 09-21-1979 Diabetic retinal exam Diabetic retinal exam [facility] Start: 09-21-1979 HbA1c (Bld) [Mass fraction] A1C test (Diabetic or Prediabetic) [place], [place] Start: 09-21-1979 Hemoglobin A1c measurement A1C test (Diabetic or Prediabetic) [facility] Start: 09-21-1979 Lipid panel Lipid screen [facility] Start: 09-21-1975 Pneumococcal 0-64 years Vaccine (1 of 1 - PPSV23) Pneumococcal 0-64 years Vaccine (1 of 1 - PPSV23) [place], [place] Start: 1974 COVID-19 VACCINE (#1) COVID-19 VACCINE (#1) [facility] Start: 1974 COVID-19 VACCINE (1) COVID-19 VACCINE (1) [facility] Start: 03-23-1970 COVID-19 VACCINE (#1) COVID-19 VACCINE (#1) [facility] Start: 1969 HEPATITIS B (1 of 3 - 3-dose series) HEPATITIS B (1 of 3 - 3-dose series) [facility] Start: 1969 Hepatitis B Vaccine (1 of 3 - 3-dose series) Hepatitis B Vaccine (1 of 3 - 3-dose series) [facility] Start: 1969 Hepatitis C screening Hepatitis C screen [facility] Bacteria identified in Urine by Culture URINE CULTURE Microbiology Routine Burning with urination 11/20/2023 2:00 PM EDT [facility] Work Phone: BACTERIAL VAGINOSIS NAAT BACTERI AL VAGINOSIS NAAT Lab Routine Vaginal odor 11/20/2023 2:00 PM EDT [facility] BACTERIAL VAGINOSIS NAAT BACTERI AL VAGINOSIS NAAT Lab Routine Menorrhagia with irregular cycle Dysmenorrhea 03/30/2024 2:50 PM EST [facility] JEEVAN/TRICHOMONAS NAAT JEEVAN /TRICHOMONAS NAAT Lab Routine Vaginal odor 11/20/2023 2:00 PM EDT [facility] JEEVAN/TRICHOMONAS NAAT JEEVAN /TRICHOMONAS NAAT Lab Routine Menorrhagia with irregular cycle Dysmenorrhea 03/30/2024 2:50 PM EST [facility] Work Phone: End: 07-18-2023 COLONOSCOPY DIAGNOSTIC COLONOSCOPY DIAGNOSTIC Endoscopy Routine Family history of colon cancer in father Screening for colon cancer Change in bowel habits 1 Occurrences starting 07/17/2022 until 07/18/2023 [facility] Work Phone: Comment on above: 1 Occurrences starting 07/17/2022 until 07/18/2023 End: 07-31-2024 DBT Breast - bilateral screening GIGI SCREENING W FARIDEH Radiology Routine Encounter for screening mammogram for breast cancer 1 Occurrences starting 07/02/2023 until 07/31/2024 [facility] Work Phone: Comment on above: 1 Occurrences starting 07/02/2023 until 07/31/2024 DBT Breast - bilater al screening GIGI SCREENING W FARIDEH Radiology Routine Encounter for screening mammogram for breast cancer 07/20/2023 11:16 AM EDT [facility] Work Phone: End: 06-04-2025 DBT Breast - bilateral screening GIGI SCREENING W FARIDEH Radiology Routine Encounter for screening mammogram for breast cancer 1 Occurrences starting 05/07/2024 until 06/04/2025 [facility] Work Phone: Comment on above: 1 Occurrences starting 05/07/2024 until 06/04/2025 DBT Breast - bilater al screening GIGI SCREENING W FARIDEH Radiology Routine Encounter for screening mammogram for breast cancer 07/20/2024 4:22 PM EDT [facility] Work Phone: End: 07-18-2023 EGD DIAGNOSTIC EGD DIAGNOSTIC Endoscopy Routine Family history of colon cancer in father Change in bowel habits Bloating 1 Occurrences starting 07/17/2022 until 07/18/2023 [facility] Work Phone: Comment on above: 1 Occurrences starting 07/17/2022 until 07/18/2023 End: 08-23-2024 EMG(NEURO/NI) EMG(NEURO/NI) EMG Routine Bilateral hand numbness 1 Occurrences starting 08/24/2023 until 08/23/2024 [facility] Comment on above: 1 Occurrences starting 08/24/2023 until 08/23/2024 Endometrial bx w/wo endocervix bx w/o dilat spx ENDOMETRIAL BIOPSY Procedures Routine Menorrhagia with irregular cycle Ordered: 03/21/2024 [facility] Comment on above: Ordered: 03/21/2024 Endometrial bx w/wo endocervix bx w/o dilat spx ENDOMETRIAL BIOPSY Procedures Routine Menorrhagia with irregular cycle Abnormal uterine bleeding (AUB) Ordered: 03/29/2024 [facility] Work Phone: Comment on above: Ordered: 03/29/2024 End: 07-17-2023 GIGI SCREENING W FARIDEH GIGI SCREENING W FARIDEH Radiology Routine Encounter for screening mammogram for breast cancer 1 Occurrences starting 06/17/2022 until 07/17/2023 [facility] Work Phone: Comment on above: 1 Occurrences starting 06/17/2022 until 07/17/2023 End: 12-04-2024 MR Cervical spine WO contrast MRI CERVICAL SPINE WO IVCON Radiology Routine Spinal stenosis of cervical region Osteoarthritis of spine with radiculopathy, cervical region 1 Occurrences starting 11/05/2023 until 12/04/2024 [facility] Work Phone: Comment on above: 1 Occurrences starting 11/05/2023 until 12/04/2024 Njx dx/ther sbst int rlmnr crv/thrc w/img gdn EPI CERV OR THORC W/IMAGING Procedures Routine Spinal stenosis of cervical region DDD (degenerative disc disease), cervical Ordered: 12/08/2023 [facility] Work Phone: Comment on above: Ordered: 12/08/2023 End: 11-07-2024 PAP TITRATION PSG (CPAP, BIPAP, ASV) PAP TITRATION PSG (CPAP, BIPAP, ASV) Procedures Routine WITLON on CPAP 1 Occurrences starting 10/09/2023 until 11/07/2024 [facility] Work Phone: Comment on above: 1 Occurrences starting 10/09/2023 until 11/07/2024 Patient Education ED Knee Sprain ED Shoulder Sprain [facility] Work Phone: Patient referral [facility] Work Phone: PFIZER-BIONTECH COVI D-19 VACCINE ( SEASON) AGE 12+ YR PFIZER-BIONTECH COVID-19 VACCINE ( SEASON) AGE 12+ YR Immunization/Injection Routine Encounter for immunization 1 Occurrences starting 07/02/2023 [facility] Work Phone: Comment on above: 1 Occurrences starting 07/02/2023 PT PLAN OF CARE CERTIFICATION PT PLAN OF CARE CERTIFICATION Procedures Routine Chronic left shoulder pain Ordered: 06/02/2022 [facility] Comment on above: Ordered: 06/02/2022 End: 02-25-2024 Radex spine lumbosacral 2/3 views XR LUMBAR GENERAL 3V AP/LAT/L5-S1 Radiology Routine Acute bilateral low back pain without sciatica 1 Occurrences starting 01/26/2023 until 02/25/2024 [facility] Work Phone: Comment on above: 1 Occurrences starting 01/26/2023 until 02/25/2024 Radex spine lumbosac ral 2/3 views XR LUMBAR GENERAL 3V AP/LAT/L5-S1 Radiology Routine Acute bilateral low back pain without sciatica 01/26/2023 12:14 PM EST [facility] Work Phone: Removal intrauterine device iud REMOVE INTRAUTERINE DEVICE Procedures Routine Encounter for IUD removal Malpositioned intrauterine device (IUD), initial encounter Ordered: 11/07/2022 [facility] Work Phone: Comment on above: Ordered: 11/07/2022 SURGICAL PATHOLOGY [facility] Work Phone: Comment on above: Release Upon Ordering for 1 Occurrences starting 09/15/2022, 1 completed SURGICAL PATHOLOGY SURGICAL PATH OLOGY Lab Routine Menorrhagia with irregular cycle Abnormal uterine bleeding (AUB) 03/29/2024 2:32 PM EST [facility] UA DIP B/O UA DIP B/O Lab R outine Suprapubic pain Ordered: 10/28/2022 [facility] Work Phone: Comment on above: Ordered: 10/28/2022 End: 11-27-2023 Us pelvic nonobstetric image dcmtn limited/f/u [facility] Work Phone: Comment on above: 1 Occurrences starting 10/28/2022 until 11/27/2023 End: 04-21-2025 US Pelvis transvaginal US FEMALE PELVIS TRANSVAG Radiology Routine Menorrhagia with irregular cycle 1 Occurrences starting 03/21/2024 until 04/21/2025 [facility] Work Phone: Comment on above: 1 Occurrences starting 03/21/2024 until 04/21/2025 US Pelvis transvaginal US FEMALE PELVIS TRANSVAG Radiology Routine Menorrhagia with irregular cycle 03/22/2024 12:00 PM EST [facility] Work Phone: End: 07-17-2023 Us transvaginal US FEMALE PELVIS TRANSVAG Radiology Routine Pelvic pain in female Breakthrough bleeding associated with intrauterine device (IUD) 1 Occurrences starting 06/17/2022 until 07/17/2023 [facility] Work Phone: Comment on above: 1 Occurrences starting 06/17/2022 until 07/17/2023 End: 11-27-2023 Us transvaginal US FEMALE PELVIS TRANSVAG Radiology Routine Suprapubic pain 1 Occurrences starting 10/28/2022 until 11/27/2023 [facility] Work Phone: Comment on above: 1 Occurrences starting 10/28/2022 until 11/27/2023 End: 09-22-2024 US Upper extremity - right US ELBOW RIGHT Radiology Routine Lesion of right ulnar nerve 1 Occurrences starting 08/24/2023 until 09/22/2024 [facility] Work Phone: Comment on above: 1 Occurrences starting 08/24/2023 until 09/22/2024 End: 02-06-2021 Vitamin B1, Whole Blood [facility] Work Phone: Comment on above: 1 Occurrences starting 02/06/2021 until 02/06/2021 XR ABDOMEN 1V SUPINE XR ABDOMEN 1V SUPINE Radiology Routine 09/15/2022 4:45 PM EDT [facility] Work Phone: XR Ankle - right AP and Lateral and oblique XR ANKLE GENERAL 3V AP/LAT/OBL RIGHT Radiology Routine Charcot ankle, right 08/06/2023 12:06 PM EDT [facility] XR Ankle - right AP and Lateral and oblique XR ANKLE GENERAL 3V AP/LAT/OBL RIGHT Radiology Routine Chronic pain of right ankle 12/01/2024 2:38 PM EDT [facility] Work Phone: End: 12-31-2025 XR Ankle - right AP and Lateral and oblique XR ANKLE GENERAL 3V AP/LAT/OBL RIGHT Radiology Routine Chronic pain of right ankle 1 Occurrences starting 12/01/2024 until 12/31/2025 [facility] Work Phone: Comment on above: 1 Occurrences starting 12/01/2024 until 12/31/2025 End: 12-17-2023 XR ANKLE GENERAL 3V AP/LAT/OBL BILATERAL XR ANKLE GENERAL 3V AP/LAT/OBL BILATERAL Radiology Routine DM (diabetes mellitus), type 2 with neurological complications (HCC) Charcot ankle, right 1 Occurrences starting 11/17/2022 until 12/17/2023 [facility] Work Phone: Comment on above: 1 Occurrences starting 11/17/2022 until 12/17/2023 XR ANKLE GENERAL 3V AP/LAT/OBL BILATERAL XR ANKLE GENERAL 3V AP/LAT/OBL BILATERAL Radiology Routine DM (diabetes mellitus), type 2 with neurological complications (HCC) Charcot ankle, left Charcot ankle, right 11/17/2022 3:53 PM EDT [facility] Work Phone: XR Foot - bilateral AP and Lateral and oblique XR FOOT GENERAL 3V AP/LAT/OBL BILATERAL Radiology Routine Hammertoe of right foot Charcot ankle, right 08/06/2023 12:04 PM EDT [facility] Work Phone: End: 10-15-2025 XR Foot - bilateral AP and Lateral and oblique XR FOOT GENERAL 3V AP/LAT/OBL BILATERAL Radiology Routine Hallux valgus of left foot Hallux valgus of right foot 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) 1 Occurrences starting 09/15/2024 until 10/15/2025 [facility] Work Phone: Comment on above: 1 Occurrences starting 09/15/2024 until 10/15/2025 XR Foot - bilateral AP and Lateral and oblique XR FOOT GENERAL 3V AP/LAT/OBL BILATERAL Radiology Routine Hallux valgus of left foot Hallux valgus of right foot 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) 09/15/2024 9:27 AM EDT [facility] End: 05-30-2024 XR Foot - left AP and Lateral and oblique XR FOOT GENERAL 3V AP/LAT/OBL LEFT Radiology Routine Hammertoe of left foot Ulcer of toe of left foot, limited to breakdown of skin (HCC) 1 Occurrences starting 05/01/2023 until 05/30/2024 [facility] Work Phone: Comment on above: 1 Occurrences starting 05/01/2023 until 05/30/2024 XR Foot - left AP an d Lateral and oblique XR FOOT GENERAL 3V AP/LAT/OBL LEFT Radiology Routine Hammertoe of left foot Ulcer of toe of left foot, limited to breakdown of skin (HCC) 05/04/2023 2:10 PM [facility] Work Phone: End: 12-17-2023 XR FOOT GENERAL 3V AP/LAT/OBL BILATERAL XR FOOT GENERAL 3V AP/LAT/OBL BILATERAL Radiology Routine DM (diabetes mellitus), type 2 with neurological complications (HCC) Charcot ankle, right 1 Occurrences starting 11/17/2022 until 12/17/2023 [facility] Work Phone: Comment on above: 1 Occurrences starting 11/17/2022 until 12/17/2023 XR FOOT GENERAL 3V AP/LAT/OBL BILATERAL XR FOOT GENERAL 3V AP/LAT/OBL BILATERAL Radiology Routine DM (diabetes mellitus), type 2 with neurological complications (HCC) Charcot ankle, left Charcot ankle, right 11/17/2022 3:54 PM EDT [facility] Work Phone: End: 03-20-2024 XR FOOT GENERAL 3V AP/LAT/OBL BILATERAL XR FOOT GENERAL 3V AP/LAT/OBL BILATERAL Radiology Routine Ulcer of toe of left foot, limited to breakdown of skin (HCC) Blister of toe of right foot, initial encounter 1 Occurrences starting 02/19/2023 until 03/20/2024 [facility] Work Phone: Comment on above: 1 Occurrences starting 02/19/2023 until 03/20/2024 End: 12-01-2024 XR Knee - bilateral 4 Views XR KNEE GENERAL 4V AP BOTH/PA BOTH/LAT/MERC BILATERAL Radiology Routine Chronic pain of right knee 1 Occurrences starting 11/02/2023 until 12/01/2024 [facility] Work Phone: Comment on above: 1 Occurrences starting 11/02/2023 until 12/01/2024 XR Knee - bilateral 4 Views XR KNEE GENERAL 4V AP BOTH/PA BOTH/LAT/MERC BILATERAL Radiology Routine Chronic pain of right knee 11/02/2023 3:54 PM EDT [facility] End: 11-07-2024 XR Lumbar spine 3 Views XR LUMBAR GENERAL 3V AP/LAT/L5-S1 Radiology Routine Lumbar pain Skin sensation disturbance 1 Occurrences starting 10/09/2023 until 11/07/2024 [facility] Comment on above: 1 Occurrences starting 10/09/2023 until 11/07/2024 XR Lumbar spine 3 Views XR LUMBA R GENERAL 3V AP/LAT/L5-S1 Radiology Routine Lumbar pain Skin sensation disturbance 10/09/2023 4:58 PM EDT [facility] End: 11-07-2024 XR Pelvis and Hip - left AP and Lateral frog XR HIP GENERAL 3V PELV/AP/LAT LEFT Radiology Routine Skin sensation disturbance 1 Occurrences starting 10/09/2023 until 11/07/2024 [facility] Comment on above: 1 Occurrences starting 10/09/2023 until 11/07/2024 XR Pelvis and Hip - left AP and Lateral frog XR HIP GENERAL 3V PELV/AP/LAT LEFT Radiology Routine Skin sensation disturbance 10/09/2023 4:58 PM EDT [facility] End: 07-31-2024 XR Sacrum and Coccyx 3 Views XR SACRUM/COCCYX 3V AP/LAT Radiology Routine Fall, initial encounter 1 Occurrences starting 07/02/2023 until 07/31/2024 [facility] Work Phone: Comment on above: 1 Occurrences starting 07/02/2023 until 07/31/2024 XR Sacrum and Coccyx 3 Views XR SACRUM/COCCYX 3V AP/LAT Radiology Routine Fall, initial encounter 07/02/2023 2:30 PM EDT [facility] Work Phone: End: 02-25-2024 XR SHOULDER [id number] AP/TRUE AP RIGHT XR SHOULDER [id number] AP/TRUE AP RIGHT Radiology Routine Chronic right shoulder pain 1 Occurrences starting 01/26/2023 until 02/25/2024 [facility] Work Phone: Comment on above: 1 Occurrences starting 01/26/2023 until 02/25/2024 XR SHOULDER LIMITED2 V AP/TRUE AP RIGHT XR SHOULDER [id number] AP/TRUE AP RIGHT Radiology Routine Chronic right shoulder pain 01/26/2023 12:14 PM EST [facility] Work Phone: End: 02-06-2021 Zinc [facility] Work Phone: Comment on above: 1 Occurrences starting 02/06/2021 until 02/06/2021 [facility] Immunizations Immunization Date Immunization Notes Care Provider Fa cility 05-14-2024 tetanus toxoid, redu jennifer diphtheria toxoid, and acellular pertussis vaccine, adsorbed NIDAL CHOUJAA DO [facility] 12-19-2023 influenza, seasonal, injectable Immunization [place] Work Phone: [facility] 12-19-2023 influenza virus vaccine, unspecified formulation [facility]cf Provider [facility] 06-15-2023 hepatitis B vaccine, adult dosage Wy Nurse Work Phone: [facility] 04-06-2023 hepatitis B vaccine, adult dosage Lulu Luciano MD Work Phone: [facility] 12-15-2022 hepatitis B vaccine, adult dosage Mi Nurse Work Phone: [facility] Work Phone: 12-15-2022 influenza, injectabl e, quadrivalent, contains preservative Mi Nurse Work Phone: [facility] Work Phone: 12-15-2022 pneumococcal (PCV20) vaccine, 20 valent (PREVNAR 20) Mi Nurse Work Phone: [facility] Work Phone: 12-15-2022 influenza virus vaccine, unspecified formulation Pedro Patricia MARBLE WORKER.NUTRITION SERVICES WORKER Work Phone: [facility] 01-31-2022 influenza, injectabl e, quadrivalent, contains preservative Anca Wood MD Work Phone: [facility] 01-31-2022 influenza virus vaccine, unspecified formulation Pedro Patricia APRN.NUTRITION SERVICES WORKER Work Phone: [facility] 03-26-2020 zoster vaccine recombinant Rolando Ayala PA-C Work Phone: [facility] 02-06-2020 tetanus toxoid, redu jennifer diphtheria toxoid, and acellular pertussis vaccine, adsorbed; Translations: [Boostrix (Tdap)] DIOMEDES COSME DPM [facility] 01-10-2020 influenza, seasonal, injectable Rolando Ayala PA-C Work Phone: [facility] 01-10-2020 pneumococcal polysaccharide vaccine, 23 valent Rolando Ayala PA-C Work Phone: [facility] 12-14-2019 zoster vaccine recombinant Rolando Ayala PA-C Work Phone: [facility] Work Phone: 11-10-2014 tetanus toxoid, redu jennifer diphtheria toxoid, and acellular pertussis vaccine, adsorbed DIOMEDES COSME DPM [facility] 10-16-2011 tetanus toxoid, redu jennifer diphtheria toxoid, and acellular pertussis vaccine, adsorbed Rolando Ayala PA-C Work Phone: [facility] 02-03-2000 diphtheria and tetan us toxoids, adsorbed for pediatric use Rolando Ayala PA-C Work Phone: [facility] Work Phone: Payers Date Payer Category Payer Self-pay [id number] 2023 Unknown [id number] 2022 Medicare (Managed Care) [facility] [id number] 2022 Medicare [id number] 2020 Medicare HUMANA MEDICARE HUMANA GOLD PLUS [id number] 2020-Present [phone] [address] [address] [place] [address] HMO [id number] 2020 Medicare [id number] 2019 Medicaid [id number] 2018 Medicare [id number] 2018 Private Health Insurance [id number] 2018 Unknown [id number] 2017 Medicaid [id number] 2017 Medicaid [id number] 2017 Medicare MEDICARE MEDICAR E PART A AND B [id number] 2017-Present [phone] [place] [address] [id number] 2012 Unknown TYRONMCLAREN [place] [id number] 1969 Unknown [id number]. 627 1969 Unknown [id number]. 627 1969 Unknown [id number]. 627 1969 Unknown [id number]. 62 1969 Unknown [id number]. 62 1969 Unknown [id number]. 627 Medicare MEDICARE PART A B [id number] Unknown [id number] Unknown [id number] 462 Unknown [id number]. 462 Unknown [id number]. 462 Unknown [id number]. 462 Unknown [id number] 462 Unknown [id number] 462 Social History Date Type Detail Facility Start: 06-09-2019 End: 05-26-2022 Tobacco smoking status VTIS Never smoker [place], [place] Start: 06-09-2019 End: 05-26-2022 Tobacco use and exposure Never used [facility] Start: 06-09-2019 End: 02-01-2021 Alcohol intake Lifetime non-drinker (finding) [facility] Start: 06-06-2019 End: 03-04-2022 [facility] 1970 [facility] Start: 06-25-2021 End: 12-01-2024 Alcohol intake Ex-drinker (finding) [facility] Start: 11-05-2020 History SDOH Alcohol Std Drinks 98 [facility] Start: 11-05-2020 End: 03-04-2022 History SDOH Social Connections Phone 3 [facility] Start: 11-05-2020 End: 03-04-2022 History SDOH Social Connections Get Together 2 [facility] Start: 11-05-2020 End: 03-04-2022 History SDOH Physical Activity DPW 0 [facility] Start: 11-05-2020 End: 01-27-2022 History SDOH Financial 5 [facility] Start: 11-04-2019 Education 14 [facility] Start: 1970 Sex Assigned At Female [facility] Start: 06-15-2021 End: 01-31-2022 Exposure to SARS-CoV-2 (event) Not sure [facility] Start: 12-11-2020 Alcohol intake Current drinke r of alcohol (finding) [facility] Start: 08-16-2015 History SDOH Alcohol Comment occasionally [facility] Start: 01-27-2022 History SDOH Physica l Activity DPW 7 [facility] Start: 01-27-2022 End: 03-04-2022 History SDOH Financial 4 [facility] Start: 03-04-2022 History SDOH Social Connections Living 6 [facility] Start: 07-28-2022 End: 04-14-2023 Tobacco smoking status NHIS Unknown if ever smoked [facility] Start: 03-03-2022 End: 05-26-2022 History of Social function [facility] Start: 03-03-2022 End: 05-26-2022 Social connection and isolation panel [facility] Do you belong to any clubs or organizations such as buddhism groups, unions, fraternal or athletic groups, or school groups? Yes [facility] Are you now , , , , never or living with a partner? [facility] How often to you hav e a drink containing alcohol? Never [facility] Start: 02-22-2012 How many standard drinks containing alcohol do you have on a typical day? Patient does not drink [facility] How hard is it for y ou to pay for the very basics like food, housing, medical care, and heating Hard [facility] Do you feel stress - tense, restless, nervous, or anxious, or unable to sleep at night because your mind is troubled all the time - these days [OSQ] To some extent [facility] (I/We) worried wheth er (my/our) food would run out before (I/we) got money to buy more. Sometimes true [facility] In the past 12 month s, was there a time when you were not able to pay the mortgage or rent on time? No [facility] Start: 10-24-2020 Gender identity Identifies as female gender (finding) [facility] How hard is it for y ou to pay for the very basics like food, housing, medical care, and heating Somewhat hard [facility] (I/We) worried wheth er (my/our) food would run out before (I/we) got money to buy more. Never true [facility] Start: 02-03-2012 End: 07-06-2024 Sex Female (finding) [facility] Do you feel stress - tense, restless, nervous, or anxious, or unable to sleep at night because your mind is troubled all the time - these days [OSQ] Very much [facility] NEGATED: Highlighted row Not [facility] Medical Equipment Procedure Code Equipment Code Equipment Origin al Text Equipment Identifier Dates ORIF, fracture, radius, distal 3.5mm low profile screw FDA Start: 05-26-2024 ORIF, fracture, radius, distal 3.5mm low profile screw FDA Start: 05-26-2024 ORIF, fracture, radius, distal 3.5mm low profile screw FDA Start: 05-26-2024 ORIF, fracture, radius, distal Kreulock compression screw FDA Start: 05-26-2024 ORIF, fracture, radius, distal Kreulock compression screw FDA Start: 05-26-2024 ORIF, fracture, radius, distal Volar Distal Radius Plates Narrow Right FDA Start: 05-26-2024 Laparoscopic abdominal hysterectomy Collagen haemostatic agent, non-antimicrobial ()[id number] FDA Start: 04-15-2024 [id number], [id number], [id number], [id number] Start: 04-06-2017 End: 11-24-2022 Comment on above: Test blood sugar(s) once daily and as needed. Dx: E11.9. Type 2 diabetes Insulin: No Test blood sugar(s) once daily. Dx: E11.9. New onset type 2 diabetes Insulin: No Check blood sugar on ce daily Goals Date Patient Goal Desired Activity /State Functional Status Date Assessment Result Facility 05-15-2024 Functional Status Activity David tance Independent [facility] 05-14-2024 Functional Status ID band on, Call device within reach, Bed in low position, Wheels locked, Bedside Cart Locked, Visitor at bedside, Safety level maintained [facility] 03-28-2023 Functional Status Independent [facility] 03-28-2023 Functional Status ID band on [facility] 03-14-2023 Functional Status Ambulation in Joya, Ambulation in Room [facility] 07-06-2022 Functional Status Standard Safet y ID band on, Call device within reach, Bed in low position, Wheels locked, Bedside Cart Locked [facility] 05-26-2022 Functional Status Standard Safet y ID band on, Bed in low position, Wheels locked, Upper/Half-Length side-rails up, Bedside Cart Locked, Safety level maintained [facility] 05-15-2022 Functional Status Room check performed [facility] 04-17-2022 Functional Status Sensory Deficits None A [facility] 04-11-2022 Functional Status Up ad rd [facility] matilda [facility] 03-18-2022 Functional Status Standard Safet y ID band on, Call device within reach, Bed in low position, Wheels locked, Upper/Half-Length side-rails up, Phone within reach, Bedside Cart Locked, Safety level maintained [facility] 03-01-2022 Functional Status Standard Safet y ID band on, Call device within reach, Bed in low position, Wheels locked, Upper/Half-Length side-rails up [facility] 08-25-2014 Are you deaf, or do you have serious difficulty hearing No 08/25/2014 4:57 PM EDT Shazia Quarles LPN No [facility] 08-25-2014 Are you blind, or do you have serious difficulty seeing, even when wearing glasses No 08/25/2014 4:57 PM KLAR[place]AT Shazia Quarles LPN [facility] 08-25-2014 Do you have serious difficulty walking or climbing stairs No 08/25/2014 4:57 PM EDT Shazia Quarles LPN No [facility] 08-25-2014 Do you have difficul ty dressing or bathing No 08/25/2014 4:57 PM Shazia Plata LPN No [facility] 08-25-2014 Because of a physica l, mental, or emotional condition, do you have difficulty doing errands alone such as visiting a physician's office or shopping No 08/25/2014 4:57 PM Shazia Plata LPN No [facility] Mental Status Date Assessment Result Facility 05-26-2024 Cognitive function Voice/Name [facility] Work Phone: 05-15-2024 Mental Status Orientation Oriented x 4 [facility] 05-14-2024 Mental Status [facility] 04-15-2024 Cognitive function Voice/Name [facility] Work Phone: 03-28-2023 Mental Status Orientation Oriented x 4 [facility] 03-28-2023 Mental Status [facility] 03-14-2023 Mental Status Oriented x 4 [facility] 07-06-2022 Mental Status Oriented x 4 [facility] 05-26-2022 Mental Status Orientation Oriented x 4 [facility] 05-15-2022 Mental Status Oriented x 4 [facility] 04-11-2022 Mental Status Orientation Oriented x 4 [facility] 04-11-2022 Mental Status [facility] 03-18-2022 Mental Status Orientation Oriented x 4 [facility] 03-01-2022 Mental Status Orientation Oriented x 4 [facility] 08-25-2014 Because of a physica l, mental, or emotional condition, do you have serious difficulty concentrating, remembering, or making decisions No 08/25/2014 4:57 PM EDT Shazia Quarles LPN No [facility] Clinical Notes 08-22-2015 to 02-01-2025 Charlie Rizzo - 12/02/2024 12:55 PM Charlie Weaver - 12/02/2024 12:54 PM Trish Case LPN - 12/01/2024 4:04 PM Trish Case LPN - 12/01/2024 3:47 PM EDTPatient Instructions Note Date & Type Note Facility 02-01-2025 Note [facility] 02-01-2025 Note [facility] 01-11-2025 Note [facility] 01-11-2025 Note [facility] 01-11-2025 Note [facility] 01-11-2025 Note [facility] 12-16-2024 Note [facility] 12-12-2024 Note [facility] 12-12-2024 Note [facility] 12-09-2024 Note [facility] 12-09-2024 Note [facility] 12-09-2024 Note [facility] 12-09-2024 Note [facility] 12-02-2024 Note [facility] 12-02-2024 History of Presen t illness Narrative Subjective The patient is a 54-year-old female presenting for follow-up of a right foot ulcer. The patient has a right foot ulcer on the plantar aspect of the right first metatarsal along the tibial inferior sesamoid, which has been present for several weeks. She has been using a surgical shoe to offload pressure, cleaning the ulcer, and applying Dulce. A graft was previously deemed unnecessary, but she is now considering it due to slow healing. She also has a wart proximal to the ulcer, which she notes will not resolve without surgical intervention. She reports constant pain in her right ankle, rated 7-8/10, exacerbated by weight-bearing and certain movements. She has a history of subtalar joint fusion and significant hypertrophic bone along the medial aspect of the ankle. She also has severe arthritis, described as bone on bone, in her knee and experiences extreme pain throughout her body. 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 Palencia will check MRA in 2012 Anxiety and depression Benign paroxysmal positional vertigo not an issue since 2006 Cataract Chronic cholecystitis 2007 Diabetes ([facility]) 2009 Dizziness and giddiness Elevated AST (SGOT) 10/16/2011 Esophageal reflux Excessive or frequent menstruation 06/19/2008 Family history of cardiac disorder in mother 12/23/2013 Fibromyalgia Hallux valgus (acquired) 01/12/2006 Hx-TIA (transient ischemic attack) January 2012 [place] Insomnia Mixed hyperlipidemia 03/19/2006 Resolved Morbid obesity with BMI of 40.0-44.9, adult ([facility]) 09/12/2014 Myalgia and myositis, unspecified Neuropathy Dr. Schmidt managing WILTON (obstructive sleep apnea) non compliant with CPAP Other enthesopathy of ankle and tarsus 01/12/2006 Other osteoporosis Restless leg syndrome 08/16/2015 Dr. Schmidt managing Retinal detachment 08/17/2015 Stage 3 chronic kidney disease ([facility]) 07/15/2022 Ulnar neuropathy of right upper extremity Current Outpatient Medications Medication Sig Dispense Refill solifenacin (VESICARE) 5 mg tablet Take 1 tablet by mouth once daily. 30 tablet 11 aspirin, enteric coated (ECOTRIN LOW STRENGTH) 81 mg EC tablet Take 1 tablet by mouth once daily. 30 tablet 11 tiZANidine HCl (ZANAFLEX) 2 mg capsule Take 2 capsules by mouth every 8 hours as needed. 120 capsule 5 semaglutide (OZEMPIC) 2 mg/dose (8 mg/3 mL) pen injector Inject 2 mg subcutaneously one time a week. 4 each 1 sertraline (ZOLOFT) 100 mg tablet Take 1 tablet by mouth once daily. 90 tablet 3 omeprazole (PRILOSEC) 40 mg capsule take 1 capsule by mouth once daily 90 capsule 5 gabapentin (NEURONTIN) 800 mg tablet Take 1 tablet by mouth three times a day for 180 days. 90 tablet 5 rosuvastatin (CRESTOR) 5 mg tablet take 1 tablet by mouth once daily 90 tablet 3 meloxicam (MOBIC) 15 mg tablet Take 1 tablet by mouth once daily. With food. 30 tablet 5 ALEXANDRA 0.05 mg/24 hr patch apply 1 patch two times a week as directed 24 Patch 4 Magnesium 250 mg tab Take 250 mg by mouth once daily. ferrous sulfate (IRON ORAL) Take 300 mg by mouth once daily. MULTIVITAMIN ORAL Take 1 tablet by mouth once daily. cholecalciferol, Vitamin D3, (VITAMIN D3) 1,250 mcg (50,000 unit) cap capsule Take 1 capsule by mouth one time a week. 12 capsule 3 L[place] Device (LANCING DEVICE WITH L[place]ETS[place] [facility] [place] blood sugar once daily 1 Each 0 Lancets lancets Test blood sugar(s) once daily. Dx: E11.9. New onset type 2 diabetes Insulin: No 100 Each 11 No current facility-administered medications for this visit. Family History Problem Relation Age of Onset Heart Mother other (fibroids) Mother Heart Father Arthritis Father Colon Cancer Father diagnosed at 74yo; has colostomy Alzheimer's Disease Father Psychiatry Maternal Grandmother Suicide Cancer Paternal Grandmother Breast Cancer Paternal Aunt Brain Cancer Paternal Aunt Uterine cancer Objective Last menstrual period 03/11/2024. - Cardiovascular: Dorsalis pedis and posterior tibial pulses palpable bilaterally; capillary refill time <5 seconds. - Skin: Warm temperature proximally to distally; plantar aspect of right first metatarsal along the tibial inferior sesamoid with a superficial ulceration measuring 2mm x 2mm; wart proximal to ulceration; no localized signs of infection; remaining skin well-hydrated. - Neurological: Protective sensation absent bilaterally. - Musculoskeletal: - Feet: - Significant collapse of medial longitudinal arch bilaterally; recurrent bunion deformity bilaterally; prominent medial hypertrophic bone along the medial subtalar joint; pain noted along the medial subtalar joint. xrays of ankle performed. fusion of right subtalar joint. Collapse noted of medial longitudinal arch. ARthritis is present to right ankle. Assessment & Plan # Chronic pain of right ankle (M25.571) # Charcot's joint, right ankle and foot (M14.671) Chronic right ankle pain rated 7-8/10, primarily with weight-bearing, associated with significant hypertrophic bone along the medial subtalar joint and stable Charcot arthropathy. - Provided boot for ankle stabilization; advised to monitor for any rubbing that could cause friction blisters or wounds. - Discussed referral to orthopedics for further evaluation; explained that I can make referral to ortho but by no means does this indicate that surgery is even an option. # 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) (L97.519) # Plantar wart (B07.0) Superficial ulceration (2 mm x 2 mm) on the plantar aspect of the right first metatarsal with a proximal plantar wart; ulcer is healing slowly with no localized signs of infection. She has experienced slow healing of the right foot ulceration. WE discussed continued use of dulce vs switching to the apligraf. This patient elected for apligraf. Application of Apligraf #1, measuring a total of 44square centimeters to the right foot today. Application per protocol with application of wound veil and steri-strips, as well as bolster dressing, nabeel, and kerlix. Notable 95 % of graft was wasted today and disposed of due to not needed for size of wound. Patient should keep dressing dry, clean and intact for 72 hours. May remove dressing in 3 days down to pink bolster dressing. RTC 1 week for possible re-applicaiton - Debrided ulcer and applied graft to expedite healing. - Explained that the graft contains living cells to promote healing and that it should not be removed. - Wart treatment deferred to avoid interfering with graft application. Recording using [employer] software for draft documentation of the visit was discussed with the patient/authorized computer help desk representative; all questions welcomed and answered. Patient/authorized computer help desk representative agreed to proceed Charlie Rizzo DPM See above Per Dr. Rizzo, Olga Lidia was provided with [employer] aircast, size L, and instructed/educated in its application, wear, and care. All questions were answered, and patient was able to demonstrate competence with the necessary skills to utilize the above equipment. Trish Barnett LPN UNIVERSAL PROTOCOL / SAFETY CHECKLIST Procedure to be Performed: apligraft application to right foot Sign In: A Moment of CARE was completed. Appropriate PPE (Personal Protective Equipment) worn by all providers involved with the procedure. Special equipment utilized apligraf. Patient/Surrogate Stated/Verified: Patient name, Date of , Relevant allergies, and The intended procedure Time Out: Relevant labs, photos, and/or imaging studies have been reviewed. Intended patient and procedure match the source document(s) (e.g. consent, H&P, associated studies [imaging, pathology]) match the intended patient and procedure. Consent obtained and matches the intended procedure. Yes. Correct side/site has been marked and visible. Medications required for this procedure are verified. Fire risk assessed and is not applicable. Implants: are not applicable. Sign Out: Specimens not collected. All instruments, equipment, possible retained foreign bodies are accounted for. Yes. The post-procedure plan of care has been communicated to the patient or surrogate. APLIGRAF APPLICATION #1 LOT # [id number] UNIT #[id number] EXP 2024-12-09 Trish Barnett LPN AMB ROOMING INTAKE FLOWSHEET DATA Pain Pain Level: 7 Pain Location: Ankle-Right Description: Sharp Duration Amount of Time: 1 Duration Units: Weeks Frequency: Continuous Intervention/Comfort measure: Reposition, Relaxation Patient presents with: Right Foot - Established Patient, Follow Up, Diabetic Foot Ulcer Trish Barnett LPN documented in this encounter [facility] 12-02-2024 Note HNO ID: [id number] Author: CHARLIE RIZZO, ? Service: ? Author Type: Physician Type: Progress Notes Filed: 12/02/2024 12:58 Note Text: See above [facility] 12-01-2024 Note [facility] 12-01-2024 Note [facility] 12-01-2024 Note HNO ID: [id number] Author: TRISH BARNETT LPN Service: ? Author Type: Licensed Nurse Type: Progress Notes Filed: 12/02/2024 12:58 Note Text: APLIGRAF APPLICATION #1 LOT # [id number] UNIT #[id number] EXP 2024-12-09 Trish Barnett LPN [facility] 12-01-2024 Note [facility] 11-25-2024 Note [facility] 11-25-2024 History of Presen t illness Narrative Subjective The patient is a 54-year-old female presenting for follow-up of a right foot ulceration. The patient has been experiencing a recurrent ulceration on the plantar aspect of the right first metatarsal head for several months. She has been applying Dulce to the wound and attempting to offload the area as much as possible. During the last visit on 11/15/2024, the ulceration was noted to be getting smaller, and the decision was made to continue conservative management rather than proceed with an Apligraf. She also has a wart proximal to the ulceration, which has been treated and appears to be improving. She denies any issues with the left foot and reports no drainage from the ulceration. 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 Alsea will check MRA in 2012 Anxiety and depression Benign paroxysmal positional vertigo not an issue since 2006 Cataract Chronic cholecystitis 2008 Diabetes ([facility]) 2009 Dizziness and giddiness Elevated AST (SGOT) 10/16/2011 Esophageal reflux Excessive or frequent menstruation 06/19/2008 Family history of cardiac disorder in mother 12/23/2013 Fibromyalgia Hallux valgus (acquired) 01/12/2006 Hx-TIA (transient ischemic attack) January 2012 [place] Insomnia Mixed hyperlipidemia 03/19/2006 Resolved Morbid obesity with BMI of 40.0-44.9, adult ([facility]) 09/12/2014 Myalgia and myositis, unspecified Neuropathy Dr. Schmidt managing WILTON (obstructive sleep apnea) non compliant with CPAP Other enthesopathy of ankle and tarsus 01/12/2006 Other osteoporosis Restless leg syndrome 08/16/2015 Dr. Schmidt managing Retinal detachment 08/17/2015 Stage 3 chronic kidney disease ([facility]) 07/15/2022 Ulnar neuropathy of right upper extremity Current Outpatient Medications Medication Sig Dispense Refill solifenacin (VESICARE) 5 mg tablet Take 1 tablet by mouth once daily. 30 tablet 11 aspirin, enteric coated (ECOTRIN LOW STRENGTH) 81 mg EC tablet Take 1 tablet by mouth once daily. 30 tablet 11 tiZANidine HCl (ZANAFLEX) 2 mg capsule Take 2 capsules by mouth every 8 hours as needed. 120 capsule 5 semaglutide (OZEMPIC) 2 mg/dose (8 mg/3 mL) pen injector Inject 2 mg subcutaneously one time a week. 4 each 1 sertraline (ZOLOFT) 100 mg tablet Take 1 tablet by mouth once daily. 90 tablet 3 omeprazole (PRILOSEC) 40 mg capsule take 1 capsule by mouth once daily 90 capsule 5 gabapentin (NEURONTIN) 800 mg tablet Take 1 tablet by mouth three times a day for 180 days. 90 tablet 5 rosuvastatin (CRESTOR) 5 mg tablet take 1 tablet by mouth once daily 90 tablet 3 meloxicam (MOBIC) 15 mg tablet Take 1 tablet by mouth once daily. With food. 30 tablet 5 ALEXANDRA 0.05 mg/24 hr patch apply 1 patch two times a week as directed 24 Patch 4 Magnesium 250 mg tab Take 250 mg by mouth once daily. ferrous sulfate (IRON ORAL) Take 300 mg by mouth once daily. MULTIVITAMIN ORAL Take 1 tablet by mouth once daily. cholecalciferol, Vitamin D3, (VITAMIN D3) 1,250 mcg (50,000 unit) cap capsule Take 1 capsule by mouth one time a week. 12 capsule 3 Lancing Device (LANCING DEVICE WITH LANCETS[place] [facility] [place] blood sugar once daily 1 Each 0 Lancets lancets Test blood sugar(s) once daily. Dx: E11.9. New onset type 2 diabetes Insulin: No 100 Each 11 No current facility-administered medications for this visit. Family History Problem Relation Age of Onset Heart Mother other (fibroids) Mother Heart Father Arthritis Father Colon Cancer Father diagnosed at 74yo; has colostomy Alzheimer's Disease Father Psychiatry Maternal Grandmother Suicide Cancer Paternal Grandmother Breast Cancer Paternal Aunt Brain Cancer Paternal Aunt Uterine cancer Objective Last menstrual period 03/11/2024. - Cardiovascular: Dorsalis pedis and posterior tibial pulses palpable on the right foot; capillary refill time <5 seconds. - Skin: - Right Foot: Skin temperature warm to cool from proximal to distal. Small thickening of the skin along the distal top of the right second toe. Very small wart noted proximal to the ulceration. - Musculoskeletal: - Right Foot: - Superficial ulceration on the plantar aspect of the right first metatarsal head, measuring 1mm x 1mm. Periwound area with slight callous formation. No exposed tendon or bone, no signs of infection. following debridement of ulceration, ulceration of right foot measures 1 mm x 3 mm Assessment & Plan # Ulcer of toe of right foot, with fat layer exposed (HCC) (L97.512) Chronic ulceration on the plantar aspect of the right first metatarsal head, measuring 1 mm x 1 mm prior to debridement and 1 mm x 3 mm post debridement, with slight surrounding callus; no exposed tendon or bone and no signs of infection. - Continue Dulce application to the wound and offloading as much as possible. - Continue to monitor for signs of infection or changes in wound size. - Because the wound has failed to show any further improvement, I will plan for apligraf application next week - debridement of ulceration thru subcutaneous tissue was performed today with 15 blade and tissue nippers. total debridement was 1 mm x 3 mm. bleeding was present and controlled with pressure. # Plantar wart of right foot (B07.0) Small wart proximal to the ulceration on the right foot, showing improvement. - wart was sharply debrided today with 15 blade. TCA applied under occlusion. - Wart will be monitored at subsequent visits. Recording using [employer] software for draft documentation of the visit was discussed with the patient/authorized computer help desk representative; all questions welcomed and answered. Patient/authorized computer help desk representative agreed to proceed Charlie Rizzo DPM Per Dr. Rizzo Olga Lidia wound was dressed with dulce, non adherent and 4 in roll gauze and instructed/educated in its application, wear, and care. All questions were answered, and patient was able to demonstrate competence with the necessary skills to utilize the above equipment. Trish Barnett LPN AMB ROOMING INTAKE FLOWSHEET DATA Patient presents with: Right Foot - Established Patient, Follow Up, Diabetic Foot Ulcer Trish Barntet LPN documented in this encounter [facility] 11-25-2024 Note [facility] 11-25-2024 Instructions Charlie Rizzo - 11/25/2024 9:28 AM EDT We discussed the ulceration on your right foot: - The ulceration on the plantar aspect of your right first metatarsal head is very superficial and measures 1 millimeter by 1 millimeter prior to debridement. There are no signs of infection, exposed tendon, or bone. The surrounding area has slight callousing. following debridement, the wound measures 1 mm x 3 mm - Continue using Dulce on the wound and try to stay off the foot as much as possible to promote healing. - will likely apply apligraf next week unless wound is healed We discussed the wart on your right foot: - The small wart proximal to the ulceration appears to be improving. I cleaned and buffed the area during today s visit. leave the acid on for 10 hours We discussed your left foot: - There are no issues with your left foot at this time. Please continue monitoring your symptoms and let us know if the ulceration worsens, shows signs of infection (such as redness, swelling, or drainage), or does not improve. Trichloroacetic acid (TCA) has been applied to the plantar warts. Rinse off in 12 hours and keep clean and dry. May bathe and shower normally starting the day after treatment The area is expected to burn and blister in about 1-3 days, if painful soak in plain, cool water. If blistered, you may drain the blister with a clean, STERILIZED needle and apply OTC antibiotic ointment and band aid to area. Repeat 2-3 times daily as needed. Tylenol or Aleve as needed for pain, provided you have no allergies to either of these. Keep scheduled follow up appointment to have wart(s) re-evaluated and/or additional treatments. documented in this encounter [facility] 11-25-2024 Note [facility] 11-15-2024 Note [facility] 11-15-2024 History of Presen t illness Narrative Subjective The patient is a 54-year-old female with a history of diabetes mellitus, presenting for follow-up of a right foot ulceration and plantar wart. The patient was last seen on 11/11, when the ulcer was debrided and measured 1 mm by 4 mm. She has been applying Dulce Promogran to the ulcer and adhering to offloading instructions. She reports that the ulcer has shown significant improvement, noting that it shrunk a lot while she was in the hospital and off her feet. She attributes the previous delay in healing to increased activity during vacations. She denies any current treatment for the plantar wart. The patient is scheduled for her next follow-up appointment on 11/25. 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 Palencia will check MRA in 2012 Anxiety and depression Benign paroxysmal positional vertigo not an issue since 2007 Cataract Chronic cholecystitis 2008 Diabetes (HCC) 2010 Dizziness and giddiness Elevated AST (SGOT) 10/16/2011 Esophageal reflux Excessive or frequent menstruation 06/19/2008 Family history of cardiac disorder in mother 12/23/2013 Fibromyalgia Hallux valgus (acquired) 01/12/2006 Hx-TIA (transient ischemic attack) January 2012 [place] Insomnia Mixed hyperlipidemia 03/19/2006 Resolved Morbid obesity with BMI of 40.0-44.9, adult ([facility]) 09/12/2014 Myalgia and myositis, unspecified Neuropathy Dr. Schmidt managing WILTON (obstructive sleep apnea) non compliant with CPAP Other enthesopathy of ankle and tarsus 01/12/2006 Other osteoporosis Restless leg syndrome 08/16/2015 Dr. Schmidt managing Retinal detachment 08/17/2015 Stage 3 chronic kidney disease ([facility]) 07/15/2022 Ulnar neuropathy of right upper extremity Current Outpatient Medications Medication Sig Dispense Refill solifenacin (VESICARE) 5 mg tablet Take 1 tablet by mouth once daily. 30 tablet 11 aspirin, enteric coated (ECOTRIN LOW STRENGTH) 81 mg EC tablet Take 1 tablet by mouth once daily. 30 tablet 11 tiZANidine HCl (ZANAFLEX) 2 mg capsule Take 2 capsules by mouth every 8 hours as needed. 120 capsule 5 semaglutide (OZEMPIC) 2 mg/dose (8 mg/3 mL) pen injector Inject 2 mg subcutaneously one time a week. 4 each 1 sertraline (ZOLOFT) 100 mg tablet Take 1 tablet by mouth once daily. 90 tablet 3 omeprazole (PRILOSEC) 40 mg capsule take 1 capsule by mouth once daily 90 capsule 5 gabapentin (NEURONTIN) 800 mg tablet Take 1 tablet by mouth three times a day for 180 days. 90 tablet 5 rosuvastatin (CRESTOR) 5 mg tablet take 1 tablet by mouth once daily 90 tablet 3 meloxicam (MOBIC) 15 mg tablet Take 1 tablet by mouth once daily. With food. 30 tablet 5 ALEXANDRA 0.05 mg/24 hr patch apply 1 patch two times a week as directed 24 Patch 4 Magnesium 250 mg tab Take 250 mg by mouth once daily. ferrous sulfate (IRON ORAL) Take 300 mg by mouth once daily. MULTIVITAMIN ORAL Take 1 tablet by mouth once daily. cholecalciferol, Vitamin D3, (VITAMIN D3) 1,250 mcg (50,000 unit) cap capsule Take 1 capsule by mouth one time a week. 12 capsule 3 L[place] Device (LANCING [place] WITH [place] [facility] [place] blood sugar once daily 1 Each 0 Lancets lancets Test blood sugar(s) once daily. Dx: E11.9. New onset type 2 diabetes Insulin: No 100 Each 11 No current facility-administered medications for this visit. Family History Problem Relation Age of Onset Heart Mother other (fibroids) Mother Heart Father Arthritis Father Colon Cancer Father diagnosed at 74yo; has colostomy Alzheimer's Disease Father Psychiatry Maternal Grandmother Suicide Cancer Paternal Grandmother Breast Cancer Paternal Aunt Brain Cancer Paternal Aunt Uterine cancer Objective Last menstrual period 03/11/2024. - Cardiovascular: Dorsalis pedis and posterior tibial pulses palpable on the right foot; capillary refill time <5 seconds. - Skin: Skin temperature warm. - Musculoskeletal: - Right Foot: - Superficial wart on the plantar aspect of the first metatarsal measuring 1mm x 3mm. - Minimal callous tissue around the ulceration. - Wart proximal to the ulceration measuring 9mm x 6mm. - Ulceration measuring 1mm x 3mm post-debridement. Assessment & Plan # Ulcer of toe of right foot, with fat layer exposed (HCC) (L97.512) Ulcer is improving with current management; measured 1 mm x 3 mm today following debridement. - she has been approved apligraf but due to the decrease in size with patient compliance, I do feel the use of dulce and offloading will be sufficient. - wound was sharply debrided thru dermis and epidermis with 15 blade and tissue nippers. bleeding was present and controlled with pressure. - Continue daily Dulce Promogran application to the ulcer; instructed patient to clean wound with saline and water, dry thoroughly, apply Dulce, cover with gauze, and wear surgical shoe. - Emphasized importance of offloading to promote healing. - Skin graft deferred; will return graft. - Follow-up on 11/25. # Plantar wart of right foot (B07.0) Plantar wart on the right foot is stable; no new lesions noted. -wart was debrided with 15 blade and tissue nippers - Applied topical acid to wart; instructed patient to leave on for 10 hours and then wash off. - Advised patient to keep wart covered. - Discussed potential future treatments, including shaving, acid application, Compound W, dermatology referral, or surgical excision, once ulcer has healed. Recording using [employer] software for draft documentation of the visit was discussed with the patient/authorized computer help desk representative; all questions welcomed and answered. Patient/authorized computer help desk representative agreed to proceed Charlie Rizzo DPM Per Dr. Rizzo, Olga Lidia wound was dressed with dulce, on adherent, 4 in roll gauze and instructed/educated in its application, wear, and care. All questions were answered, and patient was able to demonstrate competence with the necessary skills to utilize the above equipment. Trish Barnett LPN AMB ROOMING INTAKE FLOWSHEET DATA Patient presents with: Right Foot - Follow Up, Diabetic Foot Ulcer, Established Patient Trish Barnett LPN documented in this encounter [facility] 11-15-2024 Note [facility] 11-15-2024 Instructions Charlie Rizzo - 11/15/2024 1:30 PM EDT We discussed your right foot ulcer: - Your ulcer is healing well and now measures 1 mm by 3 mm, reduced from 1 mm by 4 mm last week. - Continue using Dulce daily on the ulcer. Clean the wound with saline and water, dry it, apply Dulce, and cover it with gauze. - Wear your surgical shoe to stay off the ulcer as much as possible, as this is critical for healing. - We decided not to use the skin graft at this time since the ulcer is improving with Dulce and offloading. The graft will be returned. We discussed the plantar wart on your right foot: - I applied acid to the wart today. Leave the acid on for 10 hours, then wash it off tomorrow. - Once your ulcer heals, we will discuss further treatment options for the wart, such as shaving it down, applying acid, using Compound W, or referring you to dermatology if needed. Follow-up: - Your next appointment is scheduled for November 25. - If you notice any worsening of the ulcer or wart, or if you have any concerns, please contact our office. documented in this encounter [facility] 11-15-2024 Note [facility] 11-11-2024 Note [facility] 11-11-2024 History of Presen t illness Narrative Subjective Olga Lidia Tello is a 54-year-old female with a history of diabetes mellitus, presenting for follow-up of a right foot ulcer. Olga Lidia reports that the ulcer on the plantar aspect of her right foot has decreased in size. She was recently hospitalized for a mini stroke and received daily wound care, including saline cleaning and application of betadine. The ulcer was measured at 1 cm during her hospital stay. She is currently applying Dulce and gauze to the ulcer at home, but has run out of gauze. Olga Lidia was unable to attend her last appointment due to hospitalization. She reports increased fatigue and dyspnea since the stroke. She is taking a baby aspirin. Her blood glucose levels were well-controlled in the hospital, ranging from 80-90 mg/dL, but were elevated to 200 mg/dL during the stroke. She has been advised to wear diabetic shoes but is waiting for approval to remove her current boot. 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 Palencia will check MRA in 2012 Anxiety and depression Benign paroxysmal positional vertigo not an issue since 2006 Cataract Chronic cholecystitis 2008 Diabetes ([facility]) 2009 Dizziness and giddiness Elevated AST (SGOT) 10/16/2011 Esophageal reflux Excessive or frequent menstruation 06/19/2008 Family history of cardiac disorder in mother 12/23/2013 Fibromyalgia Hallux valgus (acquired) 01/12/2006 Hx-TIA (transient ischemic attack) January 2012 [place] Insomnia Mixed hyperlipidemia 03/19/2006 Resolved Morbid obesity with BMI of 40.0-44.9, adult ([facility]) 09/12/2014 Myalgia and myositis, unspecified Neuropathy Dr. Schmidt managing WILTON (obstructive sleep apnea) non compliant with CPAP Other enthesopathy of ankle and tarsus 01/12/2006 Other osteoporosis Restless leg syndrome 08/16/2015 Dr. Schmidt managing Retinal detachment 08/17/2015 Stage 3 chronic kidney disease ([facility]) 07/15/2022 Ulnar neuropathy of right upper extremity Current Outpatient Medications Medication Sig Dispense Refill solifenacin (VESICARE) 5 mg tablet Take 1 tablet by mouth once daily. 30 tablet 11 aspirin, enteric coated (ECOTRIN LOW STRENGTH) 81 mg EC tablet Take 1 tablet by mouth once daily. 30 tablet 11 tiZANidine HCl (ZANAFLEX) 2 mg capsule Take 2 capsules by mouth every 8 hours as needed. 120 capsule 5 semaglutide (OZEMPIC) 2 mg/dose (8 mg/3 mL) pen injector Inject 2 mg subcutaneously one time a week. 4 each 1 sertraline (ZOLOFT) 100 mg tablet Take 1 tablet by mouth once daily. 90 tablet 3 omeprazole (PRILOSEC) 40 mg capsule take 1 capsule by mouth once daily 90 capsule 5 gabapentin (NEURONTIN) 800 mg tablet Take 1 tablet by mouth three times a day for 180 days. 90 tablet 5 rosuvastatin (CRESTOR) 5 mg tablet take 1 tablet by mouth once daily 90 tablet 3 meloxicam (MOBIC) 15 mg tablet Take 1 tablet by mouth once daily. With food. 30 tablet 5 ALEXANDRA 0.05 mg/24 hr patch apply 1 patch two times a week as directed 24 Patch 4 Magnesium 250 mg tab Take 250 mg by mouth once daily. ferrous sulfate (IRON ORAL) Take 300 mg by mouth once daily. MULTIVITAMIN ORAL Take 1 tablet by mouth once daily. cholecalciferol, Vitamin D3, (VITAMIN D3) 1,250 mcg (50,000 unit) cap capsule Take 1 capsule by mouth one time a week. 12 capsule 3 [place]ancing Device (LANCING [place] WITH L[place]ETS[place] [facility] [place] blood sugar once daily 1 Each 0 Lancets lancets Test blood sugar(s) once daily. Dx: E11.9. New onset type 2 diabetes Insulin: No 100 Each 11 No current facility-administered medications for this visit. Family History Problem Relation Age of Onset Heart Mother other (fibroids) Mother Heart Father Arthritis Father Colon Cancer Father diagnosed at 74yo; has colostomy Alzheimer's Disease Father Psychiatry Maternal Grandmother Suicide Cancer Paternal Grandmother Breast Cancer Paternal Aunt Brain Cancer Paternal Aunt Uterine cancer Objective Last menstrual period 03/11/2024. - Cardiovascular: Dorsalis pedis and posterior tibial pulses palpable bilaterally; capillary refill time <5 seconds. - Skin: - Right Foot: Callus along the plantar aspect of the right tibial sesamoid; ulcer measuring 1mm x 4mm; hyperkeratotic lesion with bleeding upon debridement measuring 6mm x 6mm proximal to the ulceration suggestive of wart; - Left Foot: Minimal callusing along the fifth toe at the proximal interphalangeal joint. - Toenails: Right toenails 3-5 show increased length; right first and second toenails removed. Left toenails 2, 3, and 5 show increased length; left second toenail removed. - Neurological: Protective sensation absent bilaterally; vibratory sensation absent bilaterally. - Musculoskeletal: Flattening of bilateral arches; recurrent bunion deformity of both great toes; subtle contractures of the lesser toes bilaterally. Labs: - Serum Glucose: 200 mg/dL in ambulance, 80-90 mg/dL during hospital stay - Lipid panel: Abnormal LDL and HDL (no numeric values provided) Assessment & Plan 1. Diabetic polyneuropathy associated with type 2 diabetes mellitus (HCC) (E11.42) Complete absence of protective and vibratory sensation in both feet. - Educated patient on the importance of offloading pressure from the feet and the use of diabetic shoes to prevent further complications. 2. Ulcer of toe of right foot, with fat layer exposed ([facility]) (L97.512) Ulcer on the plantar aspect of the right tibial sesamoid, currently measuring 1 mm x 4 mm, previously measured 5 mm x 1 mm on October 20. - Continue daily application of Dulce to the ulcer. - Continue use of surgical shoe until ulcer is healed. - I debrided the ulceration thru subcutaneous tissue today with 15 blade. Total debridement was 1 mm x 4 mm. bleeding was present and controlled with pressure. - Order graft for application next week. - Follow-up next week for graft application. 3. Onychomycosis (B35.1) Right first and second toenails and left second toenail have been removed. - Trimmed slightly long toenails during visit. 4. Pain in toe of left foot (M79.675) 5. Pain in toe of right foot (M79.674) Pain likely related to underlying neuropathy and biomechanical abnormalities. - Advised patient on the importance of offloading pressure from the feet and the use of diabetic shoes to prevent further complications. 6. Plantar wart of left foot (B07.0) Hyperkeratotic lesion with bleeding upon debridement, measuring 6 mm x 6 mm, just proximal to the ulceration, suggestive of a possible wart. - Applied acid to the wart during visit. - Instructed patient to apply Compound W daily to the wart, using a small amount and ensuring it is only applied to the wart. - Discussed the small risk of blistering with treatment. - Will focus on healing the ulcer before considering further treatment for the wart, such as laser. Recording using [employer] software for draft documentation of the visit was discussed with the patient/authorized computer help desk representative; all questions welcomed and answered. Patient/authorized computer help desk representative agreed to proceed Charlie Rizzo DPM Per Dr. Rizzo, Olga Lidia was dressed with Dulce/Telfa/4 in roll gauze and instructed/educated in its application, wear, and care. All questions were answered, and patient was able to demonstrate competence with the necessary skills to utilize the above equipment. Gladys Garcia MA AMB ROOMING INTAKE FLOWSHEET DATA Patient presents with: Right Foot - Established Patient, Follow Up, Diabetic Foot Ulcer Trish Barnett LPN documented in this encounter [facility] 11-11-2024 Note [facility] 11-11-2024 Instructions Charlie Rizzo - 11/11/2024 11:14 AM EDT Trichloroacetic acid (TCA) has been applied to the plantar warts. Rinse off in 12 hours and keep clean and dry. May bathe and shower normally starting the day after treatment The area is expected to burn and blister in about 1-3 days, if painful soak in plain, cool water. If blistered, you may drain the blister with a clean, STERILIZED needle and apply OTC antibiotic ointment and band aid to area. Repeat 2-3 times daily as needed. Tylenol or Aleve as needed for pain, provided you have no allergies to either of these. Keep scheduled follow up appointment to have wart(s) re-evaluated and/or additional treatments. We discussed the ulcer on your right foot: - The ulcer on the plantar aspect of your right tibial sesamoid now measures 1 millimeter by 4 millimeters, which is smaller than at your last visit. Continue applying Dulce daily to the ulcer. - I will order a graft, which will be available next week. We will apply the graft at your next visit. - Continue wearing the surgical shoe to keep pressure off the ulcer until it is fully healed. We discussed the wart on your right foot: - A wart measuring approximately 6 millimeters by 6 millimeters is present just proximal to the ulcer. I applied acid to the wart today and covered it with a Band-Aid to keep the medication in place. - At home, apply a small amount of Compound W to the wart daily. Be careful to apply it only to the wart to avoid irritation to the surrounding skin. - There is a small risk of blistering from the treatment, but you did not experience this last time. We discussed your foot care and callus management: - I filed down the callus on your foot today. You are prone to callus formation due to the biomechanics of your feet, including bunion deformities and flat arches. - Wearing diabetic shoes as prescribed will help reduce pressure and prevent further callus formation. Do not begin wearing the new diabetic shoes until you are cleared to stop using the surgical shoe. We discussed your recent mini-stroke: - You are currently taking baby aspirin as a blood thinner. Continue this as prescribed. - Your blood sugar was elevated to 200 at the time of the stroke, which may have contributed to the event. Your blood sugar levels were well-controlled in the hospital, ranging between 80 and 90. Continue monitoring your blood sugar closely and follow a healthy diet to maintain good control. Follow-up plan: - Your next appointment will be scheduled for next week to apply the graft to the ulcer. - Continue using Dulce daily on the ulcer and Compound W daily on the wart until your next visit. - If you notice any worsening of the ulcer, increased pain, or signs of infection (such as redness, swelling, or drainage), please contact our office immediately. documented in this encounter [facility] 11-11-2024 Telephone encounter Note Patient has not been seen since March and if she is wanting a higher dose she will need an appointment in office or virtual to discuss this. She is Dr. Malone's patient. Corie Jefferson APRN.CNP [facility] 11-11-2024 Miscellaneous Notes Patient has not been seen since March and if she is wanting a higher dose she will need an appointment in office or virtual to discuss this. She is Dr. Malone's patient. Corie Jefferson APRN.CNP Refill request received via MyChart. Last seen 04/22/24 for post op. Patient comment: I need a higher dose documented in this encounter [facility] 11-11-2024 Note [facility] 11-11-2024 Telephone encounter Note Refill request received via [email or web address]. Last seen 04/22/24 for post op. Patient comment: I need a higher dose [facility] 11-03-2024 Instructions Sudhir Talbot APRN.CNS - 11/03/2024 12:29 PM EDT - Start taking aspirin once daily - Continue rosuvastatin at your current dose for cholesterol control; we will reassess this in November. - Take the new bladder medication at bedtime to slow nighttime trips to the bathroom. - Drink most of your fluids earlier in the day to help reduce waking overnight. - Call the office sooner if your headaches worsen or you have new concerns. documented in this encounter [facility] 11-03-2024 Note [facility] 11-03-2024 History of Presen t illness Narrative Subjective Patient ID: Olga Lidia is a 54 year old female who presents for Hospital Follow Up. HPI Olga Lidia Tello is a 54-year-old female with a history of TIA, presenting for evaluation of persistent headaches, fatigue, and frequent urination following a recent hospitalization. She was admitted to [facility] October 29, 2024 with headache and somnolence. Impression was TIA after workup. CT head without contrast showed no intracranial abnormality. MRI brain without contrast showed no intra ocular abnormalities. CTA of the head neck unremarkable. 2D echo showed ejection fraction within normal limits, no mention of PFO or ASD. Lipid panel fasting show total cholesterol 141 triglycerides 157 HDL 39 and LDL 71. Hemoglobin A1c 5.8%. She was started on aspirin 81 mg oral daily. Recommended continued efforts at lifestyle measures. Headaches: - Persistent headaches since recent hospitalization. - Describes pain as almost in my temples, but kind of in the middle. - Pain is intermittent, sometimes fading and then returning. - Excedrin Migraine and ibuprofen 800 mg have provided some relief. - Denies neck pain, nasal congestion, or drainage. - Recent MRI showed no abnormalities related to headaches. TIA: - Recent hospitalization at [place] for suspected TIA. - Presented with headache, slurred speech, right-sided weakness, and extreme fatigue. - Previous TIA approximately 10-15 years ago. - Underwent MRI, CT scan, and echocardiogram; no stroke detected. - Treated with blood thinners and omega-3 in the hospital. - Discharged with instructions to take aspirin. - Currently taking rosuvastatin for cholesterol management. Fatigue: - Reports feeling extremely tired, with difficulty staying awake during the day. - Taking B12 supplements to address fatigue. - Sleep disrupted by frequent urination, averaging 5 hours of sleep per night. - Taking magnesium gummies before bed to aid sleep. Frequent Urination: - Wakes up multiple times per night to urinate. - Nocturia described as a lot rather than a little tinkle tinkle. - Recent UTI ruled out during hospitalization. - Denies current UTI symptoms. ROS Constitutional: (+) fatigue, (+) difficulty falling asleep, (+) daytime somnolence Head: (+) headache Eyes: (+) eye pain, (-) vision changes Neck: (+) neck pain Genitourinary: (+) urinary frequency Neurological: (-) slurred speech Objective BP 89/67 Pulse 80 Resp 16 Wt 118.3 kg (260 lb 12.9 oz) LMP 03/11/2024 (Approximate) BMI 37.42 kg/m Physical Exam Latest Ref Rn 09/19/2024 Protein, Total 6.3 - 8.0 g/dL 6.6 Albumin 3.9 - 4.9 g/dL 3.9 Calcium 8.5 - 10.2 mg/dL 9.7 Bilirubin, Total 0.2 - 1.3 mg/dL 0.3 Alkaline Phosphatase 34 - 123 U/L 74 AST 13 - 35 U/L 35 ALT 7 - 38 U/L 16 Glucose 74 - 99 mg/dL 114 (H) BUN 7 - 21 mg/dL 16 Creatinine 0.58 - 0.96 mg/dL 0.79 Sodium 136 - 144 mmol/L 137 Potassium 3.7 - 5.1 mmol/L 4.4 Chloride 98 - 107 mmol/L 101 CO2 22 - 30 mmol/L 25 Anion Gap 8 - 15 mmol/L 11 eGFR >=60 mL/min/1.73m 89 WBC 3.70 - 11.00 k/uL 9.49 RBC 3.90 - 5.20 m/uL 4.99 Hemoglobin 11.5 - 15.5 g/dL 15.2 Hematocrit 36.0 - 46.0 % 47.2 (H) MCV 80.0 - 100.0 fL 94.6 MCH 26.0 - 34.0 pg 30.5 MCHC 30.5 - 36.0 g/dL 32.2 RDW-CV 11.5 - 15.0 % 13.2 Platelet Count 150 - 400 k/uL 298 MPV 9.0 - 12.7 fL 9.3 Absolute nRBC <0.01 k/uL <0.01 Cholesterol, Total <200 mg/dL 173 Triglyceride <150 mg/dL 175 (H) HDL Cholesterol >39 mg/dL 44 LDL Cholesterol, Calculated <100 mg/dL 99 Non HDL Cholesterol <130 mg/dL 129 VLDL Cholesterol <30 mg/dL 29 TC:HDL Ratio <5.10 3.93 LDL:HDL Ratio <2.54 2.25 Fasting Time hrs 12 Hemoglobin A1C 4.3 - 5.6 % 5.9 (H) Estimated Average Glucose mg/dL 123 Magnesium 1.7 - 2.3 mg/dL 2.1 Vitamin D 25 Hydroxy 31.0 - 80.0 ng/mL 37.0 1. Acute intractable headache, unspecified headache type (R51.9) - Persistent headache since recent hospitalization for TIA; pain localized to temples and midline, with associated neck pain. - Provided Toradol injection in office for acute headache relief. - Endorse adequate hydration and sleep to help reduce headache frequency and severity. Notes she is up frequently at night to urinate, getting perhaps 5 to 6 hours of sleep per night. 2. Chronic bilateral low back pain without sciatica (M54.50) -reports ongoing use of meloxicam. 3. TIA (transient ischemic attack) (G45.9) - Recent hospitalization for suspected TIA; imaging negative for stroke. - Discussed importance of controlling blood pressure, glucose, and cholesterol to reduce risk of future cerebrovascular events. - Start aspirin for secondary stroke prevention. - Continue rosuvastatin as prescribed; will reassess in November. Will likely increase dose to decrease risk of CVA. 4. Genitourinary syndrome of menopause (N95.8) 5. Status post hysterectomy (Z90.710) - is post-hysterectomy and currently using an estrogen patch. Add vesicare, consider urogyn, PT 6. Difficulty sleeping (G47.9) 7. Overactive bladder (N32.81) - Nocturia significantly disrupting sleep; no evidence of UTI on recent testing. - Start medication to reduce urinary frequency at night and improve sleep quality. - Advised earlier in the day fluid intake in the evening to help reduce nocturia. Medical Decision Making: Problems: Moderate: Acute illness with systemic symptoms Data: Unique test result(s) reviewed: 3+ Risk: Moderate: Drug management Medical Decision Making Level: 4 - Moderate documented in this encounter [facility] 10-31-2024 Hospital Discharg e instructions Patient Education 10/31/2024 14:36:15 Transient Ischemic Attack, Mvqw-kt-Svru Transient Ischemic Attack A transient ischemic attack (TIA) is a warning stroke that causes stroke-like symptoms that go away quickly. A TIA does not cause lasting damage to the brain. But having a TIA is a sign that you may be at risk for a stroke. Lifestyle changes and medical treatments can help prevent a stroke. It is important to know the symptoms of a TIA and what to do. Get help right away, even if your symptoms go away. The symptoms of a TIA are the same as those of a stroke. They can happen fast, and they usually go away within minutes or hours. They can include: Weakness or loss of feeling in your face, arm, or leg. This often happens on one side of your body. Trouble walking. Trouble moving your arms or legs. Trouble talking or understanding what people are saying. Trouble seeing. Seeing two of one object (double vision). Feeling dizzy. Feeling confused. Loss of balance or coordination. Feeling sick to your stomach (nauseous) and throwing up (vomiting). A very bad headache for no reason. What increases the risk? Certain things may make you more likely to have a TIA. Some of these are things that you can change, such as: Being very overweight (obese). Using products that contain nicotine or tobacco, such as cigarettes and e-cigarettes. Taking control pills. Not being active. Drinking too much alcohol. Using drugs. Other risk factors include: Having an irregular heartbeat (atrial fibrillation). Being or . Having had blood clots, stroke, TIA, or heart attack in the past. Being a woman with a history of high blood pressure in (preeclampsia). Being over the age of 60. Being male. Having family history of stroke. Having the following diseases or conditions: ?High blood pressure. ?High cholesterol. ?Diabetes. ?Heart disease. ?Sickle cell disease. ?Sleep apnea. ?Migraine headache. ?Long-term (chronic) diseases that cause soreness and swelling (inflammation). ?Disorders that affect how your blood clots. Follow these instructions at home: Medicines Take irbe-guw-gfrrsdv and prescription medicines only as told by your doctor. If you were told to take aspirin or another medicine to thin your blood, take it exactly as told by your doctor. ?Taking too much of the medicine can cause bleeding. ?Taking too little of the medicine may not work to treat the problem. Eating and drinking Eat 5 or more servings of fruits and vegetables each day. Follow instructions from your doctor about your diet. You may need to follow a certain diet to help lower your risk of having a stroke. You may need to: ?Eat a diet that is low in fat and salt. ?Eat foods that contain a lot of fiber. ?Limit the amount of carbohydrates and sugar in your diet. Limit alcohol intake to 1 drink a day for non women and 2 drinks a day for men. One drink equals 12 oz of beer, 5 oz of wine, or 1 oz of hard liquor. General instructions Keep a healthy weight. Stay active. Try to get at least 30 minutes of activity on all or most days. Find out if you have a condition called sleep apnea. Get treatment if needed. Do not use any products that contain nicotine or tobacco, such as cigarettes and e-cigarettes. If you need help quitting, ask your doctor. Do not abuse drugs. Keep all follow-up visits as told by your doctor. This is important. Get help right away if: You have any signs of stroke. BE FAST is an easy way to remember the main warning signs: ?B - Balance. Signs are dizziness, sudden trouble walking, or loss of balance. ?E - Eyes. Signs are trouble seeing or a sudden change in how you see. ?F - Face. Signs are sudden weakness or loss of feeling of the face, or the face or eyelid drooping on one side. ?A - Arms. Signs are weakness or loss of feeling in an arm. This happens suddenly and usually on one side of the body. ?S - Speech. Signs are sudden trouble speaking, slurred speech, or trouble understanding what people say. ?T - Time. Time to call emergency services. Write down what time symptoms started. You have other signs of stroke, such as: ? A sudden, very bad headache with no known cause. ? Feeling sick to your stomach (nausea). ? Throwing up (vomiting). ?Jerky movements that you cannot control (seizure). These symptoms may be an emergency. Do not wait to see if the symptoms will go away. Get medical help right away. Call your local emergency services (911 in the [place] Do not drive yourself to the hospital. Summary A transient ischemic attack (TIA) is a warning stroke that causes stroke-like symptoms that go away quickly. A TIA is a medical emergency. Get help right away, even if your symptoms go away. A TIA does not cause lasting damage to the brain. Having a TIA is a sign that you may be at risk for a stroke. Lifestyle changes and medical treatments can help prevent a stroke. This information is not intended to replace advice given to you by your health care provider. Make sure you discuss any questions you have with your health care provider. Document Released: 12/16/2008 Document Revised: 12/03/2018 Document Reviewed: 06/10/2017 [employer] Patient Education 2020 [employer]. Follow Up Care 10/28/2024 20:53:49 With:LULU LUCIANO MD Address: [address], [place] [address]- When:3-7 days [facility] 10-31-2024 Note Discharge Instructions Thank you for allowing [facility] to assist you with your healthcare needs. The following is important discharge information regarding your hospital visit. Your Care Team LULU LUCIANO MD What to do next Follow Up Appointments Follow Up with LULU LUCIANO MD When:Within 3-7 days Where:[address] [place] [address]- The Following Activity and Diet Have Been Ordered for You No qualifying data available. Discharge Diet - Ordered -- No changes were made to your diet during your hospital stay. Please resume your pre hospitalization diet on discharge., 10/31/24 14:08:00 EDT The Following Equipment Has Been Ordered for You No qualifying data available. The Following Treatments Have Been Ordered for You Discharge Labs No qualifying data available. Discharge Radiology No qualifying data available. Other Therapies No qualifying data available. Post Acute Orders No qualifying data available. Someone Will Contact You Regarding These Home Health Referrals No home referrals have been ordered for you. No one will call you. Allergies sulfa drug Rash Medications Please ask your primary doctor or pharmacist before taking any other medication not listed, including over the counter drugs, herbal medications, vitamins and or supplements as they may interact with your home medications. What How Much When Instructions Last Dose Changed gabapentin (gabapentin 800 mg oral tablet) 1 tab(s) by mouth Three (3) times a day Unchanged cholecalciferol (D3-50 (50,000 units) oral capsule) 1 cap by mouth Every week Unchanged estradiol (Estradiol Patch 0.05 mg/ 24 hours twice weekly transdermal film, extended release) 1 patch(es) Transdermal 2 times a week apply to skin Unchanged ferrous sulfate (ferrous sulfate 300 mg oral tablet) 1 tab(s) by mouth Every day Unchanged magnesium oxide (Magnesium 250 mg tablet) 2 tab(s) by mouth Once a day Unchanged multivitamin (Multivitamin) 1 tab(s) by mouth Every day Unchanged omeprazole 40 Milligram by mouth Once a day Unchanged semaglutide (semaglutide 2 mg/ 3 mL (0.25 mg or 0.5 mg dose) subcutaneous solution) 0.25 Milligram Subcutaneous Every week rotate injection sites Unchanged sertraline (sertraline 100 mg oral tablet) 1 tab(s) by mouth Once a day Unchanged tiZANidine (tiZANidine 2 mg oral tablet) 2 tab(s) by mouth Every 8 hours as needed for Pain Please take this list to your next doctor s visit. Bring all medications you take, including over the counter medications, herbals and other supplements with you to your doctor s visit. Patients and families are reminded to discard old lists and to update any records with all medication providers or retail pharmacies. Education Materials Transient Ischemic Attack A transient ischemic attack (TIA) is a warning stroke that causes stroke-like symptoms that go away quickly. A TIA does not cause lasting damage to the brain. But having a TIA is a sign that you may be at risk for a stroke. Lifestyle changes and medical treatments can help prevent a stroke. It is important to know the symptoms of a TIA and what to do. Get help right away, even if your symptoms go away. The symptoms of a TIA are the same as those of a stroke. They can happen fast, and they usually go away within minutes or hours. They can include: Weakness or loss of feeling in your face, arm, or leg. This often happens on one side of your body. Trouble walking. Trouble moving your arms or legs. Trouble talking or understanding what people are saying. Trouble seeing. Seeing two of one object (double vision). Feeling dizzy. Feeling confused. Loss of balance or coordination. Feeling sick to your stomach (nauseous) and throwing up (vomiting). A very bad headache for no reason. What increases the risk? Certain things may make you more likely to have a TIA. Some of these are things that you can change, such as: Being very overweight (obese). Using products that contain nicotine or tobacco, such as cigarettes and e-cigarettes. Taking control pills. Not being active. Drinking too much alcohol. Using drugs. Other risk factors include: Having an irregular heartbeat (atrial fibrillation). Being or . Having had blood clots, stroke, TIA, or heart attack in the past. Being a woman with a history of high blood pressure in (preeclampsia). Being over the age of 60. Being male. Having family history of stroke. Having the following diseases or conditions: ? High blood pressure. ? High cholesterol. ? Diabetes. ? Heart disease. ? Sickle cell disease. ? Sleep apnea. ? Migraine headache. ? Long-term (chronic) diseases that cause soreness and swelling (inflammation). ? Disorders that affect how your blood clots. Follow these instructions at home: Medicines Take ymke-wtz-zjcynab and prescription medicines only as told by your doctor. If you were told to take aspirin or another medicine to thin your blood, take it exactly as told by your doctor. ? Taking too much of the medicine can cause bleeding. ? Taking too little of the medicine may not work to treat the problem. Eating and drinking Eat 5 or more servings of fruits and vegetables each day. Follow instructions from your doctor about your diet. You may need to follow a certain diet to help lower your risk of having a stroke. You may need to: ? Eat a diet that is low in fat and salt. ? Eat foods that contain a lot of fiber. ? Limit the amount of carbohydrates and sugar in your diet. Limit alcohol intake to 1 drink a day for non women and 2 drinks a day for men. One drink equals 12 oz of beer, 5 oz of wine, or 1 oz of hard liquor. General instructions Keep a healthy weight. Stay active. Try to get at least 30 minutes of activity on all or most days. Find out if you have a condition called sleep apnea. Get treatment if needed. Do not use any products that contain nicotine or tobacco, such as cigarettes and e-cigarettes. If you need help quitting, ask your doctor. Do not abuse drugs. Keep all follow-up visits as told by your doctor. This is important. Get help right away if: You have any signs of stroke. BE FAST is an easy way to remember the main warning signs: ? B - Balance. Signs are dizziness, sudden trouble walking, or loss of balance. ? E - Eyes. Signs are trouble seeing or a sudden change in how you see. ? F - Face. Signs are sudden weakness or loss of feeling of the face, or the face or eyelid drooping on one side. ? A - Arms. Signs are weakness or loss of feeling in an arm. This happens suddenly and usually on one side of the body. ? S - Speech. Signs are sudden trouble speaking, slurred speech, or trouble understanding what people say. ? T - Time. Time to call emergency services. Write down what time symptoms started. You have other signs of stroke, such as: ? A sudden, very bad headache with no known cause. ? Feeling sick to your stomach (nausea). ? Throwing up (vomiting). ? Jerky movements that you cannot control (seizure). These symptoms may be an emergency. Do not wait to see if the symptoms will go away. Get medical help right away. Call your local emergency services (911 in the [place] Do not drive yourself to the hospital. Summary A transient ischemic attack (TIA) is a warning stroke that causes stroke-like symptoms that go away quickly. A TIA is a medical emergency. Get help right away, even if your symptoms go away. A TIA does not cause lasting damage to the brain. Having a TIA is a sign that you may be at risk for a stroke. Lifestyle changes and medical treatments can help prevent a stroke. This information is not intended to replace advice given to you by your health care provider. Make sure you discuss any questions you have with your health care provider. Document Released: 12/16/2008 Document Revised: 12/03/2018 Document Reviewed: 06/10/2017 Elsevier Patient Education 2020 [employer] Additional Information VACCINATE! IT SAVES LIVES! Members of the community who have not yet received the COVID-19 vaccine and would like to receive it can visit one of [facility] vaccine clinics. There are many vaccine clinic locations within the [facility]. For locations and available times, please visit https://gettheshot.coronavirus.o hio.gov/. It is important to note that some COVID mobile vaccine clinics are held outdoors and may be canceled in rainy or stormy conditions. To learn more about pediatric vaccinations (ages 5-11), we invite you to visit the [facility] webpage. https://www.[facility].org/p ages/7529-Bffbj-Gfftgsohmse-Freq ozwisy-Qkgyc-Kktvdujev.html To learn more about the COVID-19 vaccine, we invite you to visit the CDC website for a list of frequently asked questions.https://www.cdc.gov/co ronavirus/2019-ncov/vaccines/faq .html [employer] Patient Portal Access Instructions: Stay connected with your healthcare team and access your personal medical information anytime with the [employer] Patient Portal. Please follow the directions below to create your [employer] account: 1.Access the email account you provided upon registration to the hospital/physician office.2.Look for an invitation email from [facility].3.Open the email and access the invitation link: Accept Invitation to [employer].4.Fill in the required gonzalez to create your account. To access your account, visit [employer]. Click the blue button labeled Access Patient Portal and then log in with the username and password that you created in the steps above. You will be able to view your test results, lab results, a summary of your visits, upcoming appointments and more. There is also a convenient messaging option where you can send secure messages to your provider. In addition, you will have the ability to download any documents or summaries to your computer and/or send the information securely to a physician. Remember that your healthcare information is confidential, so carefully consider who you will allow to register on the [employer] Patient Portal for access to your information. You can also access the [employer] Patient Portal on the [employer]. Simply click on Patient Portal and then log into your account. If you would like to receive a full copy of your medical records, please contact the [facility] Medical Records Department by calling [phone], Thursday through Thursday between 8 a.m. and 4:30 p.m. HOW TO SAFELY DISPOSE OF PRESCRIPTION MEDICATIONS Please use one of the following methods to safely dispose of your unused medications. 1.Use a drug disposal kit: the drug disposal pouch allows you to safely discard your old and unused drugs. Ask your nurse to give you one when you are discharged.2.Visit a local take-back location: Many local pharmacies and police departments have programs that collect old and unwanted prescription drugs. Call your local pharmacy or go to http://Aula 7.[employer] Domain/2Q3Ds0t to find one close to you.3.Make use of household items: Use cat litter or old coffee grounds to dispose medications if other options are not available. Mix your drugs with these household products, seal them in an airtight container and throw it into the garbage. Call [facility]: [phone] to be sure your drugs can be disposed of in this way. Some medicines may require a different approach.4.Never flush your medications down the toilet. IF YOU HAVE BEEN PRESCRIBED AN OPIOID FOR PAIN If you have been prescribed an opioid (such as hydrocodone, oxycodone or morphine), it is critical to understand the possible side effects and risks of opioid pain medications. Even when taken as directed, opioids can have several side effects including: Tolerance, meaning you might need to take more of a medication for the same pain relief. Nausea, vomiting and/or constipation. Sleepiness, dizziness, dry mouth, confusion, depression or itching. Physical dependence, meaning you have withdrawal symptoms when a medication is stopped, can develop within a few days. KNOW YOUR RESPONSIBILITIES It is important to know exactly how much and how often to take the opioid pain medications you are prescribed. Never take opioids in higher amounts or more often than prescribed. Do not combine opioids with alcohol or other drugs that cause drowsiness, such as benzodiazepines, also known as benzos, including diazepam and alprazolam, muscle relaxants or sleep aids. Never sell or share prescription opioids. This is illegal. Store opioids in a secure place and out of reach of others (including children, family, friends and visitors). The last page of this document has been signed and retained as a CHART COPY. Signatures Patient Education Materials Transient Ischemic Attack, Sgjj-zp-Nrzz Medication Leaflets My discharge plan and instructions have been reviewed and explained to me and I,OLGA LIDIA TELLO understand my current condition and have read and understand these discharge instructions. I have received a written copy of the plan/instructions. If I have questions, I am aware that I should contact my doctor. Patient/Pharmacy Care Coordinator Signature: Date/Time: Relationship to Patient: Witness Name/Signature: Date/Time: [facility] 10-31-2024 Discharge summary Date of Service 10/31/24 Discharge Diagnosis TIA Hospital Course Patient has a past medical history of TIA, diabetic peripheral neuropathy, morbid obesity, hyperlipidemia, diabetes mellitus type II, anxiety/depression, Gerd, CKD stage III, fibromyalgia, restless leg syndrome. TIA -CT head without IV contrast showed no intracranial abnormalities -MRI brain without contrast showed no intraocular abnormalities -Start on single antiplatelet aspirin 81 mg p.o. daily -Fasting lipid panel showed cholesterol 141, triglyceride 157, HDL 39 and LDL 71 A1c is 5.8 -Unremarkable CTA of the head and neck. -2D echo showed EF within normal limits -Teach BEFAST scale to family -Additional optimization strategies for secondary stroke prevention: Decreased oral intake to < 4mg/day: Encourage a diet that is low in fat and cholesterol. Continue home meds for chronic conditions unless otherwise con indicated Allergies sulfa drug Rash Procedures None Consults No qualifying data available. Imaging Results and Diagnostics MRI Brain w/o Contrast Result Date: October 30, 2024 Verified By: RANDI CROOKS MD CLINICAL STATEMENT: IMPRESSION: 1. No acute intracranial abnormality.2. Mild age-related volume loss.3. A few nonspecific white matter FLAIR hyperintensities are identified.4. Postsurgical changes of the right globe including intra-ocular injectionand scleral banding. Objective Vitals and Measurements T: 36.9 C (Oral) TMIN: 36.7 C (Oral) TMAX: 36.9 C (Oral) HR: 79 RR: 16 BP: 119/75 SpO2: 95% Weight Dosing Weight: 143 kg (10/29/24) General: AAOx3, in no apparent distress. HEENT: Normocephalic/ Atraumatic, normal conjunctiva, moist oral mucosa. Cardiovascular: Normal S1/ S2, normal rate, regular rhythm, no murmurs, rubs or gallops.. Respiratory: Normal respiratory effort, CTA bilaterally, no rales, rhonchi, or wheezing. Abdominal: Soft, nontender, nondistended, normal bowel sounds. Extremities: Normal ROM, no tenderness, swelling or edema, adequate peripheral circulation. Neurological: CN II-XII grossly intact, without focal deficit. Right upper extremity numbness Skin: Intact, dry, no rash, or lesions. Pending Labs and Studies None Code Status Code Status - Ordered -- 10/29/24 5:20:00 EDT, Full Code, Constant Order Admission Date 10/29/24 Discharge Date 10/31/24 Medications Changed gabapentin (gabapentin 800 mg oral tablet)1 tab(s) by mouth three (3) times a day. Unchanged cholecalciferol (D3-50 (50,000 units) oral capsule)1 cap by mouth every week. estradiol (Estradiol Patch 0.05 mg/24 hours twice weekly transdermal film, extended release)1 patch(es) Transdermal 2 times a week. apply to skin. ferrous sulfate (ferrous sulfate 300 mg oral tablet)1 tab(s) by mouth every day. magnesium oxide (Magnesium 250 mg tablet)2 tab(s) by mouth once a day. multivitamin (Multivitamin)1 tab(s) by mouth every day. [id number] Milligram by mouth once a day. semaglutide (semaglutide 2 mg/3 mL (0.25 mg or 0.5 mg dose) subcutaneous solution)0.25 Milligram Subcutaneous every week. rotate injection sites. sertraline (sertraline 100 mg oral tablet)1 tab(s) by mouth once a day. tiZANidine (tiZANidine 2 mg oral tablet)2 tab(s) by mouth every 8 hours as needed Pain. Follow Up Follow Up with LULU LUCIANO MD When:Within 3-7 days Where:[address] [place] [address]- Follow Up Appointments No qualifying data available. Follow Up Labs/Studies Discharge Labs No Follow-up Labs Discharge Studies No Follow-up Studies Discharge Diet Discharge Diet - Ordered -- No changes were made to your diet during your hospital stay. Please resume your pre hospitalization diet on discharge., 10/31/24 14:08:00 EDT Discharge Activity No qualifying data available. Condition on Discharge Good Readmission Risk/Palliative Score LACE Score: 12 (10/31/24 09:03:00) Palliative Total Score: 1 (10/31/24 09:03:00) Discharge Disposition Home Time Spent > 40 min Digitally Signed by LUISA GARVEY MD on 10/31/2024 02:11 PM [facility] 10-30-2024 Note Date of Service 10/30/24 Subjective Patient seen today at bedside and reports persistent right upper extremity numbness but feels better. Objective Vitals and Measurements T: 36.8 C (Oral) TMIN: 36.6 C (Oral) TMAX: 36.8 C (Oral) HR: 86 (Monitored) RR: 16 BP: 148/92 SpO2: 97% Intake and Output 7AM Yesterday to 7AM Today Intake and Output (Last 24 hours) Intake Oral Intake 700.00 Output Stool Count 0.00 Urine Count 6.00 Total Summary Total Intake 700.00 Total Output 0.00 Fluid Balance 700.00 Physical Exam General: AAOx3, in no apparent distress. HEENT: Normocephalic/ Atraumatic, normal conjunctiva, moist oral mucosa. Cardiovascular: Normal S1/ S2, normal rate, regular rhythm, no murmurs, rubs or gallops.. Respiratory: Normal respiratory effort, CTA bilaterally, no rales, rhonchi, or wheezing. Abdominal: Soft, nontender, nondistended, normal bowel sounds. Extremities: Normal ROM, no tenderness, swelling or edema, adequate peripheral circulation. Neurological: CN II-XII grossly intact, without focal deficit. Right upper extremity numbness Skin: Intact, dry, no rash, or lesions. Weight Dosing Weight: 143 kg (10/29/24) Medications Medications (13) Active Scheduled: (10) aspirin 81 mg Chewable 81 mg 1 tab(s), Oral, qDayM enoxaparin 40 mg/ 0.4mL syringe 40 mg 0.4 mL, Subcutaneous, qDay ferrous sulfate 325 mg Tablet 325 mg 1 tab(s), Oral, Daily gabapentin 400 mg capsule 800 mg 2 cap(s), Oral, TID insulin lispro 100 units/mL Soln (3 mL) Give 0-10 units/dose, Subcutaneous, TIDAC magnesium oxide 400 mg Tablet 400 mg 1 tab(s), Oral, qDay meloxicam 15 mg tablet 15 mg 1 tab(s), Oral, qDay [id number] ethyl esters 1000 mg capsule 1,000 mg 1 cap(s), Oral, QID omeprazole [address] capsule 40 mg 1 cap(s), Oral, qDay rosuvastatin 5 mg tablet 5 mg 1 tab(s), Oral, qDay Continuous: (0) PRN: (3) acetaminophen 325 mg Tablet 650 mg 2 tab(s), Oral, q4h acetaminophen 325 mg Tablet 650 mg 2 tab(s), Oral, q4h tiZANidine 4 mg tablet 4 mg 1 tab(s), Oral, q8h Lab Results 10/29 06:40 WBC: 8.6 Hgb: 15.0 Hct: 45.4 Platelet: 247 Neutrophil %: 60.4 Glucose Level: 78 Sodium Level: 143 Potassium Level: 3.7 BUN: 7.0 L Creatinine Lvl (s): 0.61 EKG No qualifying data available. Assessment/Plan Orders: aspirin, 81 mg= 1 tab(s), Oral, qDayM Communication Order (continuous), 10/30/24 12:51:00 EDT, Re-consult skin team if wound deteriorates, or for new skin integrity impairments, Constant order Cushion Waffle 17x17 Chair Medium, [place] ([id number])(Waffle Cushion Chair Medium ([id number])), 10/30/24 12:51:00 EDT, Routine, Quantity 1, Weight k, 10/30/24 12:51:00 EDT Skin Care, 10/30/24 12:51:00 EDT, Tension pillow(s), qShift, Utilize to float heels Tension Pillow supply([id number]), 10/30/24 12:51:00 EDT, Quantity 2, Weight k, 10/30/24 12:51:00 EDT Wound Care, 10/30/24 12:51:00 EDT, Site: Foot, right plantar surface, Cleanse with: Betadine, Apply to Wound Bed: None, Cover with: Gauze dressing, Daily, Right plantar foot: Crooks with Betadine, and wrap with gauze QD, and PRN if impaired. Patient has a past medical history of TIA, diabetic peripheral neuropathy, morbid obesity, hyperlipidemia, diabetes mellitus type II, anxiety/depression, Gerd, CKD stage III, fibromyalgia, restless leg syndrome. TIA -Has resolved. Continue to have right upper extremity numbness -CT head without IV contrast showed no intracranial abnormalities - Still awaiting MRI brain without contrast -Start on single antiplatelet aspirin 81 mg p.o. daily -Fasting lipid panel showed cholesterol 141, triglyceride 157, HDL 39 and LDL 71 A1c is 5.8 -Unremarkable CTA of the head and neck. -2D echo showed EF within normal limits -Teach BEFAST scale to family -PT/OT evaluation -Nursing care: Fall precautions, aspiration precautions, neurochecks every 4 hours, close monitoring of vital signs especially blood pressure and heart rate. -Keep systolic pressure <200mmHg and diastolic blood pressure<120 mmHg -Patient placed on cardiac telemetry to screen for intermittent atrial fibrillation. Should the patient found to have atrial fibrillation/flutter , calculate [id number] score and chronic anticoagulation will be considered. -Additional optimization strategies for secondary stroke prevention: Decreased oral intake to < 4mg/day: Encourage a diet that is low in fat and cholesterol. Continue home meds for chronic conditions unless otherwise con indicated Anticipated Date of Discharge 24 hrs Time Spent 50 min Digitally Signed by LUISA GARVEY MD on 10/30/2024 04:45 PM [facility] 10-30-2024 Note Exam Date Time Procedure Performing Provider Status 10/30/24 2:00 PM MRI Brain w/o Contrast RANDI CROOKS MD; Auth (Verified) [id number] ORIGINAL EXAMINATION: MRI OF THE BRAIN WITHOUT CONTRAST 10/30/2024 1:49 pm TECHNIQUE: Multiplanar multisequence MRI of the brain was performed without the administration of intravenous contrast. COMPARISON: CT head 10/28/2024 and 03/02/2022. MRI brain 02/04/2012. HISTORY: ORDERING SYSTEM PROVIDED HISTORY: Reason for Exam: TIA FINDINGS: INTRACRANIAL STRUCTURES/VENTRICLES: There is no acute infarct. No mass effect or midline shift. No evidence of an acute intracranial hemorrhage. The ventricles and sulci are normal in size and configuration. The sellar/suprasellar regions appear unremarkable. The normal signal voids within the major intracranial vessels appear maintained. A few nonspecific white matter FLAIR hyperintensities are identified. The ventricles are mildly enlarged with commensurate enlargement of the sulci most consistent with mild age-related volume loss. ORBITS: Postsurgical changes of the right globe including intra-ocular injection and scleral banding noted. The visualized portion of the orbits demonstrate no acute abnormality. SINUSES: The visualized paranasal sinuses and mastoid air cells demonstrate no acute abnormality. BONES/SOFT TISSUES: The bone marrow signal intensity appears normal. The soft tissues demonstrate no acute abnormality. Calcified density seen within the left paracentral frontal scalp reflect presents either an epidermoid inclusion or sebaceous cyst. IMPRESSION: 1. No acute intracranial abnormality. 2. Mild age-related volume loss. 3. A few nonspecific white matter FLAIR hyperintensities are identified. 4. Postsurgical changes of the right globe including intra-ocular injection and scleral banding. Interpreted by: Randi Crooks MD Preliminary Report By: Nathanael Dillon Electronically signed By Randi Crooks MD Dictated Date: 10/31/2024 12:22:27 AM Prelim Date: 10/31/2024 12:30:41 AM Sign Date: 10/31/2024 1:51:18 PM Ordering Provider: [id number] Note Reason for Consultation Admission From: Home Consult to Skin Team Nurse - Ordered -- 10/29/24 17:06:00 EDT, Impaired skin integrity, right foot Skin Team Findings Vitals and Measurements T: 36.8 C (Oral) TMIN: 36.6 C (Oral) TMAX: 36.8 C (Oral) HR: 86 (Monitored) RR: 16 BP: 148/92 SpO2: 97% Pressure Area Details No pressure injuries noted. ------Incision/Wound------ Foot Right Plantar - Incision, Wound Dressing Assessment: Clean, Dry, Intact Foot Right Plantar - Incision, Wound Dressing/Activity: Reinforced Foot Right Plantar - Incision, Wound Dressing: Gauze bandage roll Foot Right Plantar - Incision, Wound Surrounding Tissue: Normal skin tone Foot Right Plantar - Non-Pressure Ulcer Type: Diabetic ulcer Foot Right Plantar - Skin Abnormality Color: Brown, White Foot Right Plantar - Skin Abnormality Pattern: Scabbed Foot Right Plantar - Skin Abnormality Type: Non-pressure ulcer Foot Right Plantar - Wound Edge: Attached to wound bed Foot Right Plantar - Wound Exudate Amount: None ------Incision/Wound Measurements------ Foot Right Plantar - Incision, Wound Length: 1.6 cm Foot Right Plantar - Incision, Wound Width: 0.8 cm Assessments and Recommendations ------Assessments------ Current Skin/Wound Interventions: Hospital bed, Turn and reposition every 2 hours ------Recommendations------ Recommended Skin/Wound Interventions: Seat cushion, Tension pillow(s), Turn and reposition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 ([facility]) 09/12/2014 Myalgia and myositis, unspecified Neuropathy Dr. Schmidt managing WILTON (obstructive sleep apnea) non compliant with CPAP Other enthesopathy of ankle and tarsus 01/12/2006 Other osteoporosis Restless leg syndrome 08/16/2015 Dr. Schmidt managing Retinal detachment 08/17/2015 Stage 3 chronic kidney disease ([facility]) 07/15/2022 Ulnar neuropathy of right upper extremity Current Outpatient Medications Medication Sig Dispense Refill semaglutide (OZEMPIC) 2 mg/dose (8 mg/3 mL) pen injector Inject 2 mg subcutaneously one time a week. 4 each 1 sertraline (ZOLOFT) 100 mg tablet Take 1 tablet by mouth once daily. 90 tablet 3 omeprazole (PRILOSEC) 40 mg capsule take 1 capsule by mouth once daily 90 capsule 5 gabapentin (NEURONTIN) 800 mg tablet Take 1 tablet by mouth three times a day for 180 days. 90 tablet 5 rosuvastatin (CRESTOR) 5 mg tablet take 1 tablet by mouth once daily 90 tablet 3 meloxicam (MOBIC) 15 mg tablet Take 1 tablet by mouth once daily. With food. 30 tablet 5 ALEXANDRA 0.05 mg/24 hr patch apply 1 patch two times a week as directed 24 Patch 4 Magnesium 250 mg tab Take 250 mg by mouth once daily. ferrous sulfate (IRON ORAL) Take 300 mg by mouth once daily. MULTIVITAMIN ORAL Take 1 tablet by mouth once daily. fluticasone (FLONASE) 50 mcg/actuation nasal spray instill 2 spray into each nostril once daily Rinse mouth after use 48 mL 2 tiZANidine HCl (ZANAFLEX) 2 mg capsule Take 2 capsules by mouth every 8 hours as needed. 120 capsule 5 cholecalciferol, Vitamin D3, (VITAMIN D3) 1,250 mcg (50,000 unit) cap capsule Take 1 capsule by mouth one time a week. 12 capsule 3 L[place] Device ([place]ANCING [place] WITH [place] [facility] [place] blood sugar once daily 1 Each 0 Lancets lancets Test blood sugar(s) once daily. Dx: E11.9. New onset type 2 diabetes Insulin: No 100 Each 11 No current facility-administered medications for this visit. Family History Problem Relation Age of Onset Heart Mother other (fibroids) Mother Heart Father Arthritis Father Colon Cancer Father diagnosed at 74yo; has colostomy Alzheimer's Disease Father Psychiatry Maternal Grandmother Suicide Cancer Paternal Grandmother Breast Cancer Paternal Aunt Brain Cancer Paternal Aunt Uterine cancer Objective Last menstrual period 03/11/2024. - Cardiovascular: Dorsalis pedis and posterior tibial pulses readily palpable bilaterally; capillary refill time <5 seconds. - Skin: - Right Foot: Ulceration on the plantar aspect of the first metatarsal with jud-wound hyperkeratotic appearance; no signs of infection; toenails 3, 4, and 5 normal in length and thickness; great toenail removed. - Left Foot: Toenails 1, 3, 4, and 5 normal in length and thickness; second toenail removed. - Neurological: Protective sensation absent bilaterally. Imaging: (10/20) X-ray (Right Foot): No findings explicitly stated. (09/29) X-ray (Right Foot): No findings explicitly stated. (09/15) X-ray (Right Foot): No abnormalities. Assessment & Plan 1. Diabetic polyneuropathy associated with type 2 diabetes mellitus (HCC) (E11.42) Protective sensation is absent in both feet. 2. Ulcer of toe of right foot, with fat layer exposed (HCC) (L97.512) Ulceration on the plantar aspect of the right first metatarsal has a jud-wound hyperkeratotic appearance. Previous measurement on September 29 was 3mm x 3mm; current measurement is 1mm x 4mm before debridement and 5mm x 1cm after debridement. No signs of infection are noted. Adequate blood flow is confirmed with palpable dorsalis pedis and posterior tibial pulses, and capillary refill time is less than 5 seconds. Skin temperature is warm to cool proximally and distally. - Debrided hyperkeratotic tissue around the ulcer with 15 blade and tissue nippers thru subcutaneous tissue. Ttoal debridemetn was 5 mm x 1 mm x 2 mm. bleeding was present and controlled with pressure. - Continue daily wound care with saline cleaning, application of Dulce, and use of a surgical shoeto minimize pressure. - Provided a new insert to further offload pressure from the ulcerated area. - Submitted request for insurance approval for application of a skin substitute (Applegraft) to expedite healing. - Scheduled follow-up appointment in two weeks to monitor progress and apply skin substitute if approved. Recording using [employer] software for draft documentation of the visit was discussed with the patient/authorized computer help desk representative; all questions welcomed and answered. Patient/authorized computer help desk representative agreed to proceed Charlie Rizzo DPM * Magda Wilson MA - 10/20/2024 2:[address] Rizzo, applied dulce to R sub 1 ulceration. Covered with 4x4, wrapped with nabeel, and secured with paper tape. Magda Wilson MA * Magda Wilson MA - 10/20/2024 1:01 PM EDT Patient presents with: Right Foot - Follow Up Pt presents to follow up on R sub 1 ulcer. Has been using diabetic offloading insert and dulce dressing. Magda Wilson MA documented in this encounterFulton [facility]07-31-2025 NoteOhio[facility]07-31-2025 Instructions* Patient Instructions* Charlie Rizzo - 10/20/2024 1:25 PM EDT We discussed your diabetic foot ulcer on the plantar aspect of your right first metatarsal: - The wound was debrided today and now measures 5 millimeters by 1 centimeter. There is no sign of infection, and your blood flow to the area is adequate. However, the presence of callus tissue suggests there may still be pressure on the wound, which can slow healing. - Continue cleaning the wound daily with soap and water, drying it thoroughly, and applying Dulce as directed. - Use the surgical shoe at all times when not in bed to reduce pressure on the wound. Avoid walkingbarefoot or putting unnecessary pressure on the area. - A new insert will be provided to help further offload pressure from the wound. - I will submit a request to your insurance for approval to use a skin substitute (e.g., Apligraf) to expedite healing. If approved, we will apply it in the office during a future visit. You will be instructed on how to care for it at that time. - Please focus on keeping pressure off the wound as much as possible, as this is critical for healing. We discussed your overall foot health: - There are no other concerning wounds on your feet at this time. Your toenails appear normal in length and thickness, except for previously removed nails. - Continue monitoring your feet daily for any new wounds, redness, swelling, or signs of infection,and let us know if you notice any changes. Follow-up: - Please schedule a follow-up appointment in two weeks to reassess the wound and monitor healing progress. If you do not already have this scheduled, please call our office to arrange it. - If you notice increased redness, swelling, warmth, drainage, or worsening pain in the area, please contact our office immediately. documented in this encounterFulton [facility] Center07-31-2025 NoteOhio[facility]07-12-2025 Telephone encounter Note* Telephone Encounter - Lulu Luciano MD - 10/01/2024 5:36 PM EDT See MyChart reply [facility]07-12-2025 Miscellaneous Notes* Telephone Encounter - Lulu Luciano MD - 10/01/2024 5:36 PM EDT See MyChart reply documented in this encounterFulton County [facility] Center07-10-2025 NoteOhio[facility]07-10-2025 History of Present illness Narrative* Trish Barnett LPN - 09/29/2024 9:[address] Rizzo, Olga Lidia mcclellan was dressed with dulce, non adherent, 4 in roll gauze and instructed/educated in its application, wear, and care. All questions were answered, and patient was able to demonstrate competence with the necessary skills to utilize the above equipment. Trish Barnett LPN * Charlie Rizzo - 09/29/2024 9:25 AM EDT Subjective Olga Lidia Tello is a 54-year-old female with a history of diabetes and neuropathy, presenting for follow-up of a right foot ulcer. Right Foot Ulcer: - Ulceration on the plantar aspect of the right first metatarsal. - Currently using Dulce and wearing a surgical shoe. - Reports minimal serosanguinous drainage; no significant exudate. - Denies any other issues with feet. - Awaiting diabetic shoes from [employer]; ordered on the of last month. 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 Talha gnanon MRA in 2013 Anxiety and depression Benign paroxysmal positional vertigo not an issue since 2007 Cataract Chronic cholecystitis 2008 Diabetes (HCC) 2010 Dizziness and giddiness Elevated AST (SGOT) 10/16/2011 Esophageal reflux Excessive or frequent menstruation 06/19/2008 Family history of cardiac disorder in mother 12/23/2013 Fibromyalgia Hallux valgus (acquired) 01/12/2006 Hx-TIA (transient ischemic attack) January 2012 [place] Insomnia Mixed hyperlipidemia 03/19/2006 Resolved Morbid obesity with BMI of 40.0-44.9, adult ([facility]) 09/12/2014 Myalgia and myositis, unspecified Neuropathy Dr. Schmidt managing WILTON (obstructive sleep apnea) non compliant with CPAP Other enthesopathy of ankle and tarsus 01/12/2006 Other osteoporosis Restless leg syndrome 08/16/2015 Dr. Schmidt managing Retinal detachment 08/17/2015 Stage 3 chronic kidney disease ([facility]) 07/15/2022 Ulnar neuropathy of right upper extremity Current Outpatient Medications Medication Sig Dispense Refill ciprofloxacin HCl (CIPRO) 500 mg tablet Take 1 tablet by mouth two times a day for 7 days. 14 tablet 0 semaglutide (OZEMPIC) 2 mg/dose (8 mg/3 mL) pen injector Inject 2 mg subcutaneously one time a week. 4 each 1 sertraline (ZOLOFT) 100 mg tablet Take 1 tablet by mouth once daily. 90 tablet 3 omeprazole (PRILOSEC) 40 mg capsule take 1 capsule by mouth once daily 90 capsule 5 gabapentin (NEURONTIN) 800 mg tablet Take 1 tablet by mouth three times a day for 180 days. 90 tablet 5 rosuvastatin (CRESTOR) 5 mg tablet take 1 tablet by mouth once daily 90 tablet 3 meloxicam (MOBIC) 15 mg tablet Take 1 tablet by mouth once daily. With food. 30 tablet 5 ALEXANDRA 0.05 mg/24 hr patch apply 1 patch two times a week as directed 24 Patch 4 Magnesium 250 mg tab Take 250 mg by mouth once daily. ferrous sulfate (IRON ORAL) Take 300 mg by mouth once daily. MULTIVITAMIN ORAL Take 1 tablet by mouth once daily. fluticasone (FLONASE) 50 mcg/actuation nasal spray instill 2 spray into each nostril once daily Rinse mouth after use 48 mL 2 tiZANidine HCl (ZANAFLEX) 2 mg capsule Take 2 capsules by mouth every 8 hours as needed. 120 capsule 5 cholecalciferol, Vitamin D3, (VITAMIN D3) 1,250 mcg (50,000 unit) cap capsule Take 1 capsule by mouth one time a week. 12 capsule 3 Lancing Device [place]LANCING [place] WITH [place] [facility] [place] blood sugar once daily 1 Each 0 Lancets lancets Test blood sugar(s) once daily. Dx: E11.9. New onset type 2 diabetes Insulin: No 100 Each 11 No current facility-administered medications for this visit. Family History Problem Relation Age of Onset Heart Mother other (fibroids) Mother Heart Father Arthritis Father Colon Cancer Father diagnosed at 74yo; has colostomy Alzheimer's Disease Father Psychiatry Maternal Grandmother Suicide Cancer Paternal Grandmother Breast Cancer Paternal Aunt Brain Cancer Paternal Aunt Uterine cancer Objective Last menstrual period 03/11/2024. - Cardiovascular: Dorsalis pedis and posterior tibial pulses palpable bilaterally; capillary refill<5 seconds; skin temperature warm to cool bilaterally. - Skin: Callus formation noted along the periphery of right 1st metatarsal ulceration. ulceration of right 1st metatarsal measures 3 mm x 3 mm with granular base. no exposed tendon or bone. no local signs of infection. - Neurological: Protective sensation absent bilaterally. - Musculoskeletal: Recurrent bunion deformity bilaterally; hammer toes present on lesser toes bilaterally. - Wound: - Right Foot: - Plantar aspect of the first metatarsal with a 3mm x 3mm ulceration, no exposed tendon or bone, nosigns of infection. Labs: Tests: Imaging: - Foot X-ray: No destructive changes. Assessment & Plan 1. Diabetic polyneuropathy associated with type 2 diabetes mellitus (HCC) (E11.42) - Protective sensation is absent to both feet. - Advised to avoid barefoot walking and wear supportive shoes. - Follow-up in 3 weeks. 2. Ulcer of toe of right foot, with fat layer exposed (HCC) (L97.512) - Ulceration on the plantar aspect of the right first metatarsal measures 3mm x 3mm, no exposed tendon or bone, no signs of infection. - debrided ulceration of nonviable tissue thru dermis and epidermis. debridement was performed with15 blade. bleeding was present and controlled with pressure. - Continue daily wound care: clean with soap and water, dry thoroughly, apply Dulce, secure with gauze. - Continue wearing surgical shoe to offload pressure. - Recent foot X-rays show no destructive changes. - Follow-up in 3 weeks. Recording using [employer] software for draft documentation of the visit was discussed with the patient/authorized computer help desk representative; all questions welcomed and answered. Patient/authorized computer help desk representative agreed to proceed Charlie Rizzo DPM * Alma Aggarwal LPN - 09/29/2024 9:04 AM EDT AMB ROOMING INTAKE FLOWSHEET DATA Patient presents with: Right Foot - Follow Up Alma Aggarwal LPN documented in this encounterFulton County [facility] Center07-10-2025 [facility]07-10-2025 Instructions* Patient Instructions* Charlie Rizzo - 09/29/2024 9:17 AM EDT - Clean your foot ulcer once daily with soap and water and dry it thoroughly. - Apply Dulce to the ulcer, then cover it with a clean piece of gauze. - Wear your post-op surgical shoe at all times to keep pressure off the wound. - Avoid walking barefoot, even indoors or at night. - After the ulcer has fully healed, switch to properly fitted diabetic shoes (for example, Hoka, Talbot, Asics, or New Balance). - X-rays of your foot showed no destructive changes in the bone. - Call the office if you need anything; for urgent problems or sudden changes in your wound, go to the hospital. - Schedule a follow-up appointment in about three weeks to check on your ulcer s healing. documented in this encounterFulton County Health Center07-10-2025 NoteHNO ID: [id number] Author: ALMA AGGARWAL LPN Service: ? Author Type: LICENSED NURSE Type: Progress Notes Filed: 09/29/2024 09:26 Note Text: AMB ROOMING INTAKE FLOWSHEET DATA Patient presents with: Right Foot - [facility] NoteOhio[facility]06-27-2025 History of Present illness Narrative* Pedro Patricia APRN.NUTRITION SERVICES WORKER - 09/16/2024 2:19 PM EDT SUBJECTIVE Olga Lidia Tello is a 53 year old female here today for a check up on her medical problems. Chief Complaint Patient presents with: UTI: with frequent urination pressure and lower abdominal pain denies burning. Derm Problem: spots on face abdominal cramping : off and on HPI Olga Lidia Tello is a 53-year-old female with a history of DM, fibromyalgia, and depression, presenting with symptoms of a UTI, weight gain, and worsening mood. Olga Lidia reports frequent urination, approximately every 5-10 minutes, with associated urgency and incontinence, leading to the use of multiple pads daily. She notes difficulty sleeping due to the frequent need to urinate. She has been consuming cranberry juice and taking OTC cranberry pills without relief. Urinalysis shows hematuria and leukocytes. Olga Lidia also reports a 26 lb weight gain, which she attributes to inconsistent use of Ozempic due to supply issues. Her lowest weight was 240 lbs, and she is currently 264 lbs. She has been taking Ozempic for weight management and has a pending refill. She mentions a tendency to snack, particularly on animal crackers and popcorn, and avoids nuts due to edentulism. Olga Lidia reports worsening mood, describing it as horrible and noting a lack of motivation to engagein activities she previously enjoyed, such as swimming. She attributes this to multiple recent surgeries and physical limitations. She is currently taking sertraline 50 mg daily and expresses a preference for increasing the dosage rather than adding a new medication. She reports severe, intermittent abdominal cramps following a hysterectomy, describing the pain as paralyzing and lasting about a minute. She denies associated nausea, emesis, constipation, or diarrhea. She also reports chronic back pain, which she attributes to deteriorating discs at C3, C4, andC5, as well as a recent fall on her tailbone. She experiences sciatica on the left side with prolonged walking and reports a specific area of pain in her arm, which she believes may be tendinitis. She also mentions arthritis in her left knee, with [id number] contact, and is considering surgery ifsymptoms do not improve in 3 months. Olga Lidia has a history of multiple surgeries, including a hysterectomy, elbow surgery, and trigger finger surgery. She also reports a recent diabetic ulcer on her foot, for which she is awaiting diabetic shoes. She denies current constipation but recalls severe constipation post-hysterectomy due to pain medications. She reports a family history of cardiac issues, including a quadruple bypass in her father and multiple MIs in her mother. She also has a family history of cancer, including breast cancer in her grandmother and colon cancer in her father. She is scheduled for a colonoscopy every 5 years. She mentions a history of stage 3 CKD but notes that her GFR has been stable for the past 3 years. She is scheduled for blood work, including A1c and cholesterol levels, on the of the month. Her medications were reviewed today and her list is now up to date. Medications Current Outpatient Medications Medication Sig omeprazole (PRILOSEC) 40 mg capsule take 1 capsule by mouth once daily gabapentin (NEURONTIN) 800 mg tablet Take 1 tablet by mouth three times a day for 180 days. rosuvastatin (CRESTOR) 5 mg tablet take 1 tablet by mouth once daily meloxicam (MOBIC) 15 mg tablet Take 1 tablet by mouth once daily. With food. ALEXANDRA 0.05 mg/24 hr patch apply 1 patch two times a week as directed Magnesium 250 mg tab Take 250 mg by mouth once daily. ferrous sulfate (IRON ORAL) Take 300 mg by mouth. MULTIVITAMIN ORAL Take by mouth. fluticasone (FLONASE) 50 mcg/actuation nasal spray instill 2 spray into each nostril once daily Rinse mouth after use tiZANidine HCl (ZANAFLEX) 2 mg capsule Take 2 capsules by mouth every 8 hours as needed. cholecalciferol, Vitamin D3, (VITAMIN D3) 1,250 mcg (50,000 unit) cap capsule Take 1 capsule by mouth one time a week. semaglutide (OZEMPIC) 2 mg/dose (8 mg/3 mL) pen injector Inject 2 mg subcutaneously one time a week. nitrofurantoin monohydrate and macrocrystal (MACROBID) 100 mg capsule Take 1 capsule by mouth two times a day. sertraline (ZOLOFT) 100 mg tablet Take 1 tablet by mouth once daily. [place] [facility] [place] sugar once daily Lancets lancets Test blood sugar(s) once daily. Dx: E11.9. New onset type 2 diabetes Insulin: No No current facility-administered medications for this visit. ALLERGIES Allergen Reactions Povidone-Iodine Hives Sulfa (Sulfonamide * Rash ACTIVE PROBLEM LIST Moderate Recurrent Major Depression ([facility]) - 09/16/2024 Dysmenorrhea - 03/30/2024 Irritable Bowel Syndrome - 11/12/2023 Insomnia - 11/12/2023 Anxiety and Depression Cervical Myofascial Pain Syndrome - 06/05/2023 Ddd (Degenerative Disc Disease), Cervical - 06/05/2023 Ulcer of Foot, Right, Limited to Breakdown of Skin ([facility]) - 07/15/2022 Dm (Diabetes Mellitus), Type 2 With Neurological Complications ([facility]) - 07/15/2022 Chronic Left Shoulder Pain - 06/02/2022 Chronic Right-Sided Low Back Pain With Left-Sided Sciatica - 01/31/2022 Obesity, Class II, Bmi 35-39.9 - 01/31/2022 [place] On Cpap - 06/06/2019 Type 2 Diabetes Mellitus Without Complication, Without Long-Term Current Use of Insulin ([facility]) - 09/16/2017 Neuropathy Comment: Dr. Schmidt managing Chronic Cholecystitis - 08/18/2015 Restless Leg Syndrome - 08/16/2015 Aneurysm - 08/16/2015 Comment: 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 Palencia will check MRA in 2012 Hx-Tia (Transient Ischemic Attack) - 08/16/2015 Comment: January 2012 [place] Fibromyalgia - 10/16/2011 Vitamin D Deficiency - 10/16/2011 Arthritis - 10/16/2011 Comment: bilat feet Benign Paroxysmal Positional Vertigo Mixed Hyperlipidemia - 03/19/2006 Esophageal Reflux - 03/19/2006 Neuralgia, Neuritis, and Radiculitis, Unspecified - 01/12/2006 Social History Tobacco Use Smoking status: Never Smokeless tobacco: Never Vaping Use Vaping status: Never Used Substance Use Topics Alcohol use: Not Currently Drug use: No Review of Systems Respiratory: Negative. Cardiovascular: Negative. Genitourinary: Positive for dysuria, frequency and urgency. OBJECTIVE BP 114/80 Pulse 80 Temp (Src) 98.2 (Temporal) Resp 16 Wt 264 lb 8.8 oz (120.0kg) LMP 03/11/2024 Physical Exam Vitals and nursing note reviewed. Constitutional: General: She is awake. She is not in acute distress. Appearance: Normal appearance. She is well-developed and well-groomed. She is not ill-appearing, toxic-appearing or diaphoretic. HENT: Head: Normocephalic. Right Ear: External ear normal. Left Ear: External ear normal. Nose: Nose normal. Eyes: General: Vision grossly intact. Conjunctiva/sclera: Conjunctivae normal. Pupils: Pupils are equal, round, and reactive to light. Neck: Vascular: No JVD. Trachea: Trachea normal. Cardiovascular: Rate and Rhythm: Normal rate and regular rhythm. Pulses: Normal pulses. Heart sounds: Normal heart sounds. No murmur heard. Pulmonary: Effort: Pulmonary effort is normal. No accessory muscle usage, prolonged expiration or respiratory distress. Breath sounds: Normal breath sounds. Musculoskeletal: Cervical back: Neck supple. Skin: General: Skin is warm and dry. Capillary Refill: Capillary refill takes less than 2 seconds. Neurological: General: No focal deficit present. Mental Status: She is alert and oriented to person, place, and time. Mental status is at baseline. Psychiatric: Attention and Perception: Attention and perception normal. Mood and Affect: Mood and affect normal. Speech: Speech normal. Behavior: Behavior normal. Behavior is cooperative. Thought Content: Thought content normal. Cognition and Memory: Cognition and memory normal. Judgment: Judgment normal. ASSESSMENT/PLAN: 1. Acute UTI (N39.0) Urinalysis shows hematuria and leukocytes, consistent with UTI. Patient experiencing frequent and urgent urination. - Initiated Macrobid therapy. 2. Moderate recurrent major depression (HCC) (F33.1) Depressed mood with lack of motivation and social withdrawal. Currently on sertraline 50 mg daily. - Increased sertraline to 100 mg daily; instructed patient to take two 50 mg tablets until current supply is exhausted, then switch to 100 mg tablets. 3. DM (diabetes mellitus), type 2 with neurological complications (HCC) (E11.49) Diabetes management complicated by neuropathy. Recent weight gain of 26 lbs due to missed doses of Ozempic. - Refill Ozempic prescription. - Confirmed upcoming lab work on 1st, including A1c and cholesterol levels. 4. Ulcer of foot, right, limited to breakdown of skin (HCC) (L97.511) Recent development of a diabetic ulcer on the right foot. - Continue wound care as per Dr. Rizzo instructions. - Awaiting diabetic shoes. 5. Neuropathy (G62.9) Chronic neuropathic pain contributing to overall discomfort. 6. Chronic bilateral low back pain with sciatica, sciatica laterality unspecified (G89.29) Chronic low back pain with sciatica exacerbated by recent falls and injuries. 7. Class 2 severe obesity with serious comorbidity and body mass index (BMI) of 37.0 to 37.9 in adult, unspecified obesity type (HCC) (E66.812) Recent weight gain due to missed Ozempic doses. BMI within the range of 37.0 to 37.9. - Refill Ozempic prescription. - Discussed dietary modifications to reduce caloric intake. Recording using [employer] software for draft documentation of the visit was discussed with the patient/authorized computer help desk representative; all questions welcomed and answered. Patient/authorized computer help desk representative agreed to proceed Portions of this note have been entered by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 balance due to neuropathy and to prevent further falls. Additionally, Olga Lidia has a history of a wrist fracture on 05/14, which was surgically repaired by . She is currently undergoing range of motion therapy and is awaiting clearance for strengthening exercises. She also had a hysterectomy approximately 7 weeks ago and reports abdominal pain that began after the wrist fracture. The pain is described as intermittent, varying in location, and exacerbated by lying down. She suspects it may be related to muscle strain from altered gait and posture due to her injuries. Olga Lidia is currently on Ozempic for weight management and glycemic control, with a recent A1c of 5.9%in April. She reports a plateau in weight loss and inquires about the possibility of a gastric sleeve procedure. She has a history of significant weight fluctuations, with a recent weight gain of 10-15 lbs, currently weighing 250-255 lbs. She attributes the weight gain to decreased physical activity due to her injuries and recent vacation. She also reports hair loss and increased skin laxity, which she attributes to weight loss. She expresses a desire to resume exercise but is currently limited by her injuries. Olga Lidia is also on estrogen patch therapy following her hysterectomy and inquires about increasing the dosage due to persistent hot flashes. She is currently on the lowest dose, as recommended by her PROP[employer], with plans to titrate up as needed. She is also taking vitamin D, iron, and magnesium supplements over the counter. She denies any issues with her current medications and reports a high pain tolerance, having discontinued oxycodone shortly after her wrist surgery, . She is currently taking gabapentin TID for neuropathy. 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 Talha gannon MRA in 2013 Anxiety and depression Benign paroxysmal positional vertigo not an issue since 2006 Cataract Chronic cholecystitis 2008 Diabetes ([facility]) 2009 Dizziness and giddiness Elevated AST (SGOT) 10/16/2011 Esophageal reflux Excessive or frequent menstruation 06/19/2008 Family history of cardiac disorder in mother 12/23/2013 Fibromyalgia Hallux valgus (acquired) 01/12/2006 Hx-TIA (transient ischemic attack) January 2012 [place] Insomnia Mixed hyperlipidemia 03/19/2006 Resolved Morbid obesity with BMI of 40.0-44.9, adult ([facility]) 09/12/2014 Myalgia and myositis, unspecified Neuropathy Dr. Schmidt managing WILTON (obstructive sleep apnea) non compliant with CPAP Other enthesopathy of ankle and tarsus 01/12/2006 Other osteoporosis Restless leg syndrome 08/16/2015 Dr. Schmidt managing Retinal detachment 08/17/2015 Stage 3 chronic kidney disease ([facility]) 07/15/2022 Ulnar neuropathy of right upper extremity Current Outpatient Medications Medication Sig rosuvastatin (CRESTOR) 5 mg tablet take 1 tablet by mouth once daily semaglutide (OZEMPIC) 2 mg/dose (8 mg/3 mL) pen injector Inject 2 mg subcutaneously one time a week. omeprazole (PRILOSEC) 40 mg capsule Take 1 capsule by mouth once daily. meloxicam (MOBIC) 15 mg tablet Take 1 tablet by mouth once daily. With food. ALEXANDRA 0.05 mg/24 hr patch apply 1 patch two times a week as directed MULTIVITAMIN ORAL Take by mouth. fluticasone (FLONASE) 50 mcg/actuation nasal spray instill 2 spray into each nostril once daily Rinse mouth after use tiZANidine HCl (ZANAFLEX) 2 mg capsule Take 2 capsules by mouth every 8 hours as needed. sertraline (ZOLOFT) 50 mg tablet Take 1 tablet by mouth once daily. cholecalciferol, Vitamin D3, (VITAMIN D3) 1,250 mcg (50,000 unit) cap capsule Take 1 capsule by mouth one time a week. Lancing Device (LANCING [place] WITH LANC[place] [facility] [place] blood sugar once daily Lancets lancets Test blood sugar(s) once daily. Dx: E11.9. New onset type 2 diabetes Insulin: No gabapentin (NEURONTIN) 800 mg tablet Take 1 tablet by mouth three times a day for 180 days. Magnesium 250 mg tab Take 250 mg by mouth once daily. ferrous sulfate (IRON ORAL) Take 300 mg by mouth. No current facility-administered medications for this visit. Review of Systems Objective BP 116/82 Pulse 77 Ht 177.8 cm (5' 10) Wt 116 kg (255 lb 11.7 oz) LMP 03/11/2024 (Approximate) SpO2 97% BMI 36.69 kg/m Physical Exam Constitutional: Appearance: Normal appearance. HENT: Head: Normocephalic. Eyes: Conjunctiva/sclera: Conjunctivae normal. Cardiovascular: Rate and Rhythm: Normal rate and regular rhythm. Heart sounds: Normal heart sounds. Pulmonary: Effort: Pulmonary effort is normal. Breath sounds: Normal breath sounds. Musculoskeletal: Right shoulder: Decreased range of motion. Left shoulder: Swelling (in supraclavicular fossa, mild; not tender) and tenderness (manubrium-clavicular joint tender but not really swollen) present. Decreased range of motion. Skin: General: Skin is warm and dry. Neurological: General: No focal deficit present. Mental Status: She is alert and oriented to person, place, and time. Psychiatric: Mood and Affect: Mood normal. Behavior: Behavior normal. Thought Content: Thought content normal. Judgment: Judgment normal. Assessment and Plan # Type 2 diabetes mellitus without complication, without long-term current use of insulin (HCC) (E11.9) - Well-controlled on Ozempic; recent A1c was 5.9%. - Discussed importance of maintaining a low-calorie diet to aid weight loss. - Ordered labs for September 26 appointment with Pedro, including A1c, CMP, CBC, lipid panel, and vitamin D levels. # Strain of abdominal muscle, initial encounter (S39.011A) - Likely secondary to compensatory movements due to recent injuries. - Advised on isometric exercises and maintaining mobility within comfort limits. # Swelling of clavicular region (M79.89) # Strain of left shoulder, sequela (S46.912S) # Sprain of left shoulder, unspecified shoulder sprain type, initial encounter (S43.402A) - X-ray from 07/07 showed no fractures or dislocations. - Exam reveals tenderness at the sternoclavicular joint and limited range of motion due to pain. - Suspected inflammation; will review X-ray report once available. - Advised on gentle range of motion exercises to prevent stiffness. # Hot flash, menopausal (N95.1) # Postmenopausal atrophic vaginitis (N95.2) - Current estrogen patch at lowest dose; patient reports persistent hot flashes. - Advised to follow up with [employer] for potential increase in estrogen dosage. # Neuropathy (G62.9) - Managed with gabapentin 300 mg TID. - Refilled gabapentin for 6 months. # Vitamin D deficiency (E55.9) - Patient taking 50,000 IU vitamin D weekly OTC. - Ordered vitamin D level check for September 26 appointment. # Hypomagnesemia (E83.42) - Patient taking magnesium supplement OTC. - Ordered magnesium level check for September 26 appointment. # Class 2 obesity due to excess calories with body mass index (BMI) of 36.0 to 36.9 in adult, unspecified whether serious comorbidity present (E66.812) - Discussed potential referral for gastric sleeve surgery; emphasized necessity of lifestyle changes for long-term success. - Advised patient to check insurance coverage and select a bariatric surgeon within the [facility] network. # Sprain of right knee, unspecified ligament, initial encounter (S83.91XA) # Sprain of right ankle, unspecified ligament, initial encounter (S93.401A) - Injuries sustained from a fall; currently using a walker for support. - Advised on gradual weight-bearing as tolerated and continuation of physical therapy. Lulu Luciano MD Recording using [employer] software for draft documentation of the visit was discussed with the patient/authorized computer help desk representative; all questions welcomed and answered. Patient/authorized computer help desk representative agreed to proceed documented in this encounterFulton County Health Center04-22-2025 Instructions* Patient Instructions* Charlie Rizzo - 07/12/2024 4:02 PM EDT Diabetes Foot Care Instructions When you have diabetes, proper foot care is very important. Poor foot care may lead to amputation of a foot or leg. As a person with diabetes, you are more vulnerable to foot problems, because diabetes can damage your nerves and reduce blood flow to your feet. Here are some diabetes foot care tips to follow: Wash and Dry Your Feet Daily Use mild soaps Use warm water Pat your skin dry; do not rub. Thoroughly dry your feet. After washing, use lotion on your feet to prevent cracking. Do not put lotion between your toes. Examine Your Feet Each Day Check the tops and bottoms of your feet. Have someone else look at your feet if you cannot see them. Check for dry, cracked skin. Look for blisters, cuts, scratches, or other sores. Check for redness, increased warmth, or tenderness when touching any area of your feet. Check for ingrown toenails, corns, and calluses. If you get a blister or sore from your shoes, do not pop it. Apply a bandage and wear a differentpair of shoes. Take Care of Your Toenails Cut toenails after bathing, when they are soft. Cut toenails straight across and smooth with a nail file. Avoid cutting into the corners of toes. Do not cut cuticles. If you have neuropathy (or decreased sensation in your feet) a command and control officer should always cut your toenails. Be Careful When Exercising Walk and exercise in comfortable shoes. Do not exercise when you have open sores on your feet. Protect Your Feet With Shoes and Socks Never go barefoot. Always protect your feet by wearing shoes or hard-soled slippers or footwear. Avoid shoes with high heels and pointed toes. Avoid shoes that expose your toes or heels (such as open-toed shoes or sandals). These types of shoes increase your risk for injury and potential infections. Try on new footwear with the type of socks you usually wear. Do not wear new shoes for more than an hour at a time. Change your socks daily. Look and feel inside your shoes before putting them on to make sure there are no foreign objects orrough areas. Avoid tight socks. Wear natural-fiber socks (cotton, wool, or a cotton-wool blend). Wear special shoes if your health care provider recommends them. Wear shoes/boots that will protect your feet from various weather conditions (cold, moisture, etc.). Make sure your shoes fit properly. If you have neuropathy (nerve damage), you may not notice that your shoes are too tight. Perform the footwear test described below. Footwear Test Use this simple test to see if your shoes fit correctly: Stand on a piece of paper. (Make sure you are standing and not sitting, because your foot changes shape when you stand.) Trace the outline of your foot. Trace the outline of your shoe. Compare the tracings: Is the shoe too narrow? Is your foot crammed into the shoe? The shoe should be at least 1/2 inch longer than your longest toe and as wide as your foot. Proper Shoe Choices The following types of shoes are best for people with diabetes Closed toes and heels Leather uppers without a seam inside At least 1/2 inch extra space at the end of your longest toe Inside of shoe should be soft with no rough areas Outer sole should be made of stiff material Shoes should be at least as wide as your feet Tips for Foot Care in Diabetes Don't wait to treat a minor foot problem if you have diabetes. Follow your health care provider's guidelines and first aid guidelines. Report foot injuries and infections to your health care provider immediately. Check water temperature with your elbow, not your foot. Do not use a heating pad on your feet. Do not cross your legs. Do not self-treat your corns, calluses, or other foot problems. Go to your health care provider or command and control officer to treat these conditions. documented in this encounterFulton County Health Center04-22-2025 NoteOhiohealth [facility]04-16-2025 Radiology Diagnostic study note [facility] Imaging Services [address] [place] [address] Venous Duplex Imag/Limited/Uni MR#: [id number] Acct: [id number] Name: OLGA LIDIA TELLO Rep #: [id number] : 1970 F 53 From: Darrne Amin MD PCP: Dr. Lulu Luciano MD Status: RE G ER Study:Venous Duplex Imag/Limited/Uni Date of Exam: 07/06/24 Exam# [id number] Ordering Dr: Alton Lott DO PROCEDURE: VENOUS DUPLEX IMAG/LIMITED/UNI 07/06/2024 REASON FOR EXAM: F 53 y/o Leg pain and swelling TECHNIQUE: Grayscale color flow and doppler analysis of the left lower extremity. FINDINGS: There is no intraluminal echogenicity to suggest the presence of a deep venous thrombosis. Appropriate respiratory variation, augmentation and venous compression is noted. US/Venous Duplex Imag/Limited/Uni IMPRESSION: No deep venous thrombosis identified in the extremity. Reading Location: [facility] CC: Dr. Alton Lott DO; Dr. Lulu Luciano MD ~ Magnesium Mill Operator: Signed [facility]04-16-2025 Radiology Diagnostic study note [facility] Imaging Services [address], [place] [id number] Shoulder min 2 Views MR#: [id number] Acct: [id number] Name: OLGA LIDIA TELLO Rep #: [id number] : 1970 F 53 From: Darren Amin MD PCP: Dr. Lulu Luciano MD Status: RE G ER Study:Shoulder min 2 Views Date of Exam: 07/06/24 Exam# [id number] Ordering Dr: Alton Lott DO PROCEDURE: SHOULDER MIN 2 VIEWS 07/06/2024 REASON FOR EXAM: INJURY/PAIN TECHNIQUE: 3 view(s) of the left shoulder FINDINGS: Bones: No acute fracture or dislocation. Joints: Normal alignment of the acromioclavicular and glenohumeral joints. Soft tissues: Soft tissues are unremarkable. Other: RAD/Shoulder min 2 Views IMPRESSION: NO ACUTE FRACTURE OR DISLOCATION. Reading Location: [facility] CC: Dr. Alton Lott DO; Dr. Lulu Luciano MD ~ Magnesium Mill Operator: Signed [facility] [facility]25 Radiology Diagnostic study note [facility] Imaging Services [address], [place] [address] Extremity Lower without Contra MR#: [id number] Acct: [id number] Name: OLGA LIDIA TELLO Rep #: [id number] : 1970 F 53 From: Darren Amin MD PCP: Dr. Lulu Luciano MD Status: RE G ER Study:Extremity Lower without Contra Date of Exam: 07/06/24 Exam# [id number] Ordering Dr: Alton Lott DO PROCEDURE: EXTREMITY LOWER WITHOUT CONTRA 07/06/2024 REASON FOR EXAM: FALL TECHNIQUE: Axial CT images of the right knee obtained with intravenous contrast. Coronal and Sagittal reconstruction series were provided. One or more dose reduction techniques were used (e.g., Automated exposure control, adjustment of the mA and/or kV according to patient size, use of iterative reconstruction technique). FINDINGS: Bones: No evidence of fracture. Joints: Degenerative changes are present Soft Tissues: Unremarkable. CT/Extremity Lower without Contra IMPRESSION: No acute fracture or dislocation. Severe arthrosis. Reading Location: [facility] CC: Dr. Alton Lott DO; Dr. Lulu Luciano MD ~ Magnesium Mill Operator: Signed [facility]04-08-2025 Telephone encounter Note* Telephone Encounter - Sudhir Talbot APRN.CNS - 06/28/2024 10:58 AM EDT ok [facility]04-08-2025 Miscellaneous Notes* Telephone Encounter - Sudhir Talbot APRN.CNS - 06/28/2024 10:58 AM EDT ok * Telephone Encounter - Kelly Sahni LPN - 06/28/2024 8:55 AM EDT Pharmacy asking for 90 day supply. Last office visit 03/31/2024 3 month follow-up: 07/12/2024 Kelly Sahni LPN [facility] Tele[facility] encounter Note * Telephone Encounter - Kelly Sahni LPN - 06/28/2024 8:55 AM EDT Pharmacy asking for 90 day supply. Last office visit 03/31/2024 3 month follow-up: 07/12/2024 Kelly Sahni LPN [facility]04-07-2025 Telephone encounter Note* Telephone Encounter - Kanika Malone LPN - 06/27/2024 10:50 AM EDT Prescription Refill Information The patient has been identified by name and date of : Yes Caregiver verified no other encounters exist for this prescription request: Yes Caregiver confirmed with patient/requestor that no other refills are due, in the near future, with this provider at this time: Yes The last office visit in the department: 03/31/24 Does the patient have a future office visit with this provider/department: Yes 07/12/24 Requested Prescriptions Pending Prescriptions Disp Refills omeprazole (PRILOSEC) 40 mg capsule 30 capsule 5 Sig: Take 1 capsule by mouth once daily. Kanika Malone LPN June 27, 2024 10:50 AM [facility]04-07-2025 Miscellaneous Notes* Telephone Encounter - Kanika Malone LPN - 06/27/2024 10:50 AM EDT Prescription Refill Information The patient has been identified by name and date of : Yes Caregiver verified no other encounters exist for this prescription request: Yes Caregiver confirmed with patient/requestor that no other refills are due, in the near future, with this provider at this time: Yes The last office visit in the department: 03/31/24 Does the patient have a future office visit with this provider/department: Yes 07/12/24 Requested Prescriptions Pending Prescriptions Disp Refills omeprazole (PRILOSEC) 40 mg capsule 30 capsule 5 Sig: Take 1 capsule by mouth once daily. Kanika Malone LPN June 27, 2024 10:50 AM [facility] Telephone encounter Note * Telephone Encounter - Kanika Malone LPN - 06/27/2024 10:48 AM EDT Prescription Refill Information The patient has been identified by name and date of : Yes Caregiver verified no other encounters exist for this prescription request: Yes Caregiver confirmed with patient/requestor that no other refills are due, in the near future, with this provider at this time: Yes The last office visit in the department: 03/31/24 Does the patient have a future office visit with this provider/department: Yes 07/12/24 Requested Prescriptions Pending Prescriptions Disp Refills semaglutide (OZEMPIC) 2 mg/dose (8 mg/3 mL) pen injector 4 each 1 Sig: Inject 2 mg subcutaneously one time a week. Kanika Malone LPN June 27, 2024 10:49 AM [facility]04-07-2025 Miscellaneous Notes* Telephone Encounter - Kanika Malone LPN - 06/27/2024 10:48 AM EDT Prescription Refill Information The patient has been identified by name and date of : Yes Caregiver verified no other encounters exist for this prescription request: Yes Caregiver confirmed with patient/requestor that no other refills are due, in the near future, with this provider at this time: Yes The last office visit in the department: 03/31/24 Does the patient have a future office visit with this provider/department: Yes 07/12/24 Requested Prescriptions Pending Prescriptions Disp Refills semaglutide (OZEMPIC) 2 mg/dose (8 mg/3 mL) pen injector 4 each 1 Sig: Inject 2 mg subcutaneously one time a week. Kanika Malone LPN June 27, 2024 10:49 AM [facility] Telephone encounter Note * Telephone Encounter - Kanika Malone LPN - 06/27/2024 9:37 AM EDT Prescription Refill Information The patient has been identified by name and date of : Yes Caregiver verified no other encounters exist for this prescription request: Yes Caregiver confirmed with patient/requestor that no other refills are due, in the near future, with this provider at this time: Yes The last office visit in the department: 03/31/24 Does the patient have a future office visit with this provider/department: Yes 07/12/24 Requested Prescriptions Pending Prescriptions Disp Refills meloxicam (MOBIC) 15 mg tablet 30 tablet 5 Sig: Take 1 tablet by mouth once daily. With food. Kanika Malone LPN June 27, 2024 9:38 AM [facility]04-07-2025 Miscellaneous Notes* Telephone Encounter - Kanika Malone LPN - 06/27/2024 9:37 AM EDT Prescription Refill Information The patient has been identified by name and date of : Yes Caregiver verified no other encounters exist for this prescription request: Yes Caregiver confirmed with patient/requestor that no other refills are due, in the near future, with this provider at this time: Yes The last office visit in the department: 03/31/24 Does the patient have a future office visit with this provider/department: Yes 07/12/24 Requested Prescriptions Pending Prescriptions Disp Refills meloxicam (MOBIC) 15 mg tablet 30 tablet 5 Sig: Take 1 tablet by mouth once daily. With food. Kanika Malone LPN June 27, 2024 9:38 AM [facility]04[facility] Telephone encounter Note * Telephone Encounter - Kanika Malone LPN - 06/27/2024 9:29 AM EDT Prescription Refill Information The patient has been identified by name and date of : Yes Caregiver verified no other encounters exist for this prescription request: Yes Caregiver confirmed with patient/requestor that no other refills are due, in the near future, with this provider at this time: Yes The last office visit in the department: 03/31/24 Does the patient have a future office visit with this provider/department: Yes 07/12/24 Requested Prescriptions Pending Prescriptions Disp Refills rosuvastatin (CRESTOR) 5 mg tablet 30 tablet 5 Sig: Take 1 tablet by mouth once daily. Kanika Malone LPN June 27, 2024 9:29 AM [facility]04-07-2025 Miscellaneous Notes* Telephone Encounter - Kanika Malone LPN - 06/27/2024 9:29 AM EDT Prescription Refill Information The patient has been identified by name and date of : Yes Caregiver verified no other encounters exist for this prescription request: Yes Caregiver confirmed with patient/requestor that no other refills are due, in the near future, with this provider at this time: Yes The last office visit in the department: 03/31/24 Does the patient have a future office visit with this provider/department: Yes 07/12/24 Requested Prescriptions Pending Prescriptions Disp Refills rosuvastatin (CRESTOR) 5 mg tablet 30 tablet 5 Sig: Take 1 tablet by mouth once daily. Kanika Malone LPN June 27, 2024 9:29 AM documented in [facility] encounterF[facility]03-[facility] Consult note Author Marina Elias [facility] Note Date/Time May 26, 2024 1:[address] [facility] Medical Records Department [address] [place] [address] Anesthesia Postop Eval I 05/26/24 1315 MR#: [id number] Acct: [id number] Name: OLGA LIDIA TELLO Rep #:[id number] : 1970 53 From: Marina Elias PCP: Dr. Lulu Luciano MD Status:RE G NEC Y Race: C Location: [place] [address] Anesthesia: Postop Eval I Current Vital Signs Temperature: 97.2 F Pulse Rate: 72 Blood Pressure: 139/93 Respiratory Rate: 16 Pulse Ox: 98 Assessment Airway patent: Yes Spontaneous unlabored respirations: Yes nausea: No Vomiting: No Anesthesia Complication: No Fluid Hydration Crystalloid volume administer (ml): 1,300 Total IV fluid infused: 1,300 Progress Note Anesthesia document: Postop Eval 1 completed: Yes 05/26/24 1319 <Electronically signed by Marina reid> Date _ Marina Elias Cosigner Signature: Date CC: ~ Signed [facility] Work Phone: [phone]) 108-167103-06-2025 Radiology Diagnostic study note [facility] Imaging Services [address] [place] [address] Wrist 2 Views MR#: [id number] Acct: [id number] Name: OLGA LIDIA TELLO Rep #: [id number] : 1970 F 53 From: Jeff Anderson MD PCP: Dr. Lulu Luciano MD Status: [facility] Study:Wrist 2 Views Date of Exam: Exam# [id number] Ordering Dr: Osvaldo Freeman DO PROCEDURE: Intraoperative fluoroscopic services provided for open reduction and internal fixation of the distal radial fracture. REASON FOR EXAM: ORIF of the distal radial fracture. TECHNIQUE: 2 view(s) of the right wrist were obtained. COMPARISON: None. FINDINGS: RIGHT WRIST: Intraoperative fluoroscopic imaging provided for open reduction and internal fixation of the distalradial fracture utilizing screw and plate fixation device. There is good alignment. RAD/Wrist 2 Views IMPRESSION: Fluoroscopic services provided for open reduction and internal fixation of the distal radial fracture. There is good alignment. Reading Location: [facility] CC: Dr. Lulu Luciano MD; Dr. Osvaldo Freeman DO ~ Magnesium Mill Operator: Signed [facility]03-06-2025 Procedure note [facility] Medical Records Department [address] [place] [address] Operative Report 05/26/24 1328 MR#: [id number] Acct: [id number] Name: OLGA LIDIA TELLO Rep #:[id number] : 1970 53 From: Osvaldo hebert DO PCP: Dr. Lulu Luciano MD Status:[facility] Location: [place] [address] Operative Report (Standard) Operative Information Date of Procedure: 05/26/24 Pre-Operative Diagnosis: Right intra-articular distal radius fracture Post-Operative Diagnosis: Right intra-articular distal radius fracture Surgery/Procedure Performed: Right distal radius open reduction internal fixation, greater than 3 parts grocery department manager: Yes Cath Lab Nurse: Marcy Floyd Tasks completed by assisted living manager: Opening & closing, Implanting device and Retracting Additionalassistant?: No Type of Anesthesia: General RN Documented Start/Stop Times: Operation Date: 05/26/24 12:00 Case Time Into Pre-Op 05/26/24 10:30 Anesthesia Start 05/26/24 11:22 Into Room 05/26/24 11:22 Procedure Start 05/26/24 11:46 Out of Pre-Op 05/26/24 11:52 Procedure End 05/26/24 13:04 Anesthesia End 05/26/24 13:12 Out of Room 05/26/24 13:12 Into Recovery 05/26/24 13:15 Procedure Start Time: 11:46 Procedure Stop Time: 13:04 Select all DRAINS/GRAFTS/IMPLANTS that apply: Implanted device Implanted device details: Arthrex narrow volar locking plate, 3-hole right Estimated Blood Loss: 25 cc Specimen collected: No Description of surgery: Patient was notified today of surgery by name, medical record number, and date of . The operative extremity was marked. All questions were answered to the patient satisfaction. Patient was then brought to the operative suite and positioned supine on a standard operating table. Hand table was attached patient's right side general anesthesia was induced and LMA placed. Well- paddedpneumatic tourniquet was applied to the right upper arm. Right upper extremity was prepped and draped in normal, sterile orthopedic fashion. We performed a timeout confirming the side, site, operation be performed. No concerns were voiced and we elected to proceed with surgery. Right upper extremity was then exsanguinated Esmarch bandage. Tourniquet was inflated to 250 mmHg for approximately 45 minutes. Esmarch was removed. Standard FCR approach was then performed to the distal radius. Full-thickness skin flaps were developed down to the FCR. FCR was retracted ulnarly andthe floor the sheath was opened. Pronator quadratus was intact and L-shaped tenotomy was performed.Comminuted radial styloid and radial column fracture was noted. Fracture hematoma was debrided. Provisional reduction was performedwith combination of pointed clamps and ulnar deviation. Reasonable reduction was achieved. I elected to secure plate to bone and then reduce the fracture tothe plate. Cortical screw was placed in the oblong hole of the plate in appropriate position. I then used the pointed clamp and a lobster claw clamp toreduce the comminuted radial column. 2 locking compression screws were placed in the radial styloid portion of the plate achieving reduction and fixation of the radial styloid. The proximal portion of the fracture was still unstable. The remainder of the distalsegment was filled with locking screws. Cortical screws were filled in the shaft in sterile fashion. The wrist was stable following final fixation. I elected to place 2 percutaneous K wires for additional fixation of the radial column. Wound was copiously irrigated with normal saline. K wires were bent and cut. Tourniquet was deflated. Hemostasiswas excellent. Dermis was then reapproximated with buried 3-0 Vicryl suture andskin reapproximated with 4-0 subcuticular 4-0 Monocryl. Dermabond was applied. Field block of 10 cc quarter percent bupivacaine with epinephrine was administered. Bulky sterile compression dressing was applied. Well-padded fiberglass short arm splint was applied. She was awakened from anesthesia. Shetolerated procedure well without apparent complication. She was extubated in the operative suite and transferred to her gurney and subsequently to PACU in stable condition. Need for skilled sales support assistant: Marcy Floyd PA-C was critical to the outcome of thecase. During the course of the procedure the physician sales support assistant played a vitalrole. Her intimate knowledge of my stepsin the procedure aided in safe and expedient completion of the procedure. The PA played a vital role in positioning particularly in obtaining the appropriate positioning. The PA was also vital in theretraction of soft tissues during the exposure and protecting vital structures. The PA was also vital and obtaining fracture reduction and assisting with hardware placement. She also played a vital role in closure and splint application with my direct supervision. Postoperative plan: Nonweightbearing upper extremity. Maintain splint till follow-up. X-rays in splint in 2 weeks. Consider pulling pins in 2 weeks versus transition to cast maintaining pins. X-rays will help us determine next steps. Ice and elevation. Oxycodone prescription provided. Tylenol and ibuprofen encouraged.Aspirin 81mg twice daily for DVT prophylaxis x 2 weeks. Follow-up in 2 weeks. Surgical Findings: Comminuted radial styloid fracture, intra-articular stable following final fixation Complications Complications: No Admit VTE Documentation VTE Present on Admission: No VTE Mechan Device Prophylaxis: SCD's VTE Pharm Prophylaxis ordered?: Yes 05/26/24 1335 Cosigner Signature (if applicable): CC: Dr. Lulu Luciano MD; Dr. Osvaldo Freeman, DO~ Signed [facility]03-06-[address] [facility] Medical Records Department [address] [place] [address] Anesthesia Postop Eval I 05/26/24 1315 MR#: [id number] Acct: [id number] Name: OLGA LIDIA TELLO Rep #:[id number] : 1970 53 From: Marina Elias PCP: Dr. Lulu Luciano MD [place] [facility] [place] C Location: [place] [address] Anesthesia: Postop Eval I Current Vital Signs Temperature: 97.2 F Pulse Rate: 72 Blood Pressure: 139/93 Respiratory Rate: 16 Pulse Ox: 98 Assessment Airway patent: Yes Spontaneous unlabored respirations: Yes nausea: No Vomiting: No Anesthesia Complication: No Fluid Hydration Crystalloid volume administer (ml): 1,300 Total IV fluid infused: 1,300 Progress Note Anesthesia document: Postop Eval 1 completed: Yes 05/26/24 1319 a> Date _ Marina Corbin Signature: Date CC: ~ Signed [facility]03-06-2025 Consult note Author Ricky Chino [facility] Note Date/Time May 26, 2024 11:[address] [facility] Medical Records Department [address] [facility] [place] [address] Pre-Anesthesia Evaluation 05/26/24 1105 MR#: [id number] Acct: [id number] Name: OLGA LIDIA TELLO Rep #:[id number] : 1970 53 From: Ricky Chino MD PCP: Dr. uLlu Luciano MD Status:[facility] Y Race: C Location: [place] [address] ASA Classification* ASA Classification ASA Classification: 3 Assessment & Plan Anesthesia* Anesthesia Assessment Anesthesia Assessment: Discussed sedation and/or anesthesia options, risks, benefits, and alternatives with patient/parents/legal guardian/POA. Questions invited. The patient/parents/legal guardian/POA seems to understand and agrees to proceedwith anesthesia plan. Reviewed the physical assessment, medical history, allergy history and patient home medications list prior to surgery/procedure/anesthetic and documented any changes. Performed airway and anesthesia risk assessments. Anesthesia Type Anesthesia Type: General and Block (Patient is consented for axillary block.) History Source History Obtained from:: Patient and Chart Anesthesia Focused Assessment* Temperature: 97.1 F Pulse Rate: 81 Blood Pressure: 129/95 Respiratory Rate: 16 Pulse Ox: 98 Oxygen Delivery Method: Room Air Airway Assessment Mouth opens: >3 cm Mallampati Score: III Teeth Condition: Missing (Patient is edentulous.) Neck Range of motion (ROM): Limited ROM (Slight decrease in extension) Focused Labs Anesthesia Preop lab: CBC WBC 8.2 K/mm3 (4.4-11.0) 05/19/24 10:00 05/19/24 RBC 4.35 M/mm3 (4.2-5.4) 05/19/24 10:00 05/19/24 Hgb 13.6 g/dL (12.0-15.0) 05/19/24 10:00 05/19/24 Hct 42.0 % (37-47) 05/19/24 10:00 05/19/24 Plt Count 280 K/mm3 (150-450) 05/19/24 10:00 05/19/24 CHEMISTRY Potassium 4.1 mmol/L (3.3-5.1) 05/19/24 10:00 05/19/24 Sodium 140 mmol/L (133-145) 05/19/24 10:00 05/19/24 BUN 11 mg/dL (4-19) 05/19/24 10:00 05/19/24 Creatinine 0.8 mg/dL (0.6-1.0) 05/19/24 10:00 05/19/24 Glucose 122 mg/dL (70-99) H 05/19/24 10:00 05/19/24 POC Glucose 131 mg/dL (74-106) H 04/15/24 11:59 04/15/24 COAG PT 13.5 SECONDS (11.7-14.9) 04/15/24 08:10 Urine Test Negative Negative 04/15/24 08:00 04/15/24 Pre-Assessment Diagnosis/Proposed Procedure Planned Operative Procedure(s): ORIF DISTAL RADIUS Anesthesia History Anesthesia History - mechanical design engineer products: Anesthesia History - mechanical design engineer products Hx Hospitalization No 05/19/24 09:01 Any Problems With Anesthesia No 05/19/24 09:01 Cholinesterase deficiency No 05/19/24 09:01 You/Your Family Experience No 05/19/24 09:01 fever (hyperthermia) with Relationship Recent Exposure to Contagious No 05/26/24 10:38 Disease Does patient have nerve No 05/19/24 09:01 stimulator Patient instructed to have device shut off --Does patient have Pacemaker No 05/26/24 10:38 or ICD? When Was Last Pacemaker Check QUESTION #4 FULL TEXT: You/Your Family Experience fever (hyperthermia) with Anesthesia Last Oral Intake Last Oral intake: Last Oral Intake NPO since 00:00 05/26/24 10:38 Meds taken in AM with sips of water? 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 - mechanical design engineer products: PONV - mechanical design engineer products Female Yes 05/19/24 09:01 HX of Motion Sickness Yes 05/19/24 09:01 HX of N/V After Surgery Yes 05/19/24 09:01 Non-Smoker Yes 05/19/24 09:01 Duration of Surgery greater Yes 05/19/24 09:01 than 60 minutes Number of Risk Factors 5 05/19/24 09:01 PONV Score Severe Risk 05/19/24 09:01 Height & Weight Height & Weight: Anesthesia: Height & Weight Height 5 ft 10 in 05/26/24 10:38 Weight: 116 kg 05/26/24 10:38 Body Mass Index (BMI) 36.6 05/26/24 10:38 Respiratory Assessment Respiratory Assessment - mechanical design engineer products: Respiratory Tract Infection Hx - mechanical design engineer products Hx Respiratory Tract Infection No 05/19/24 09:01 STOP Sleep Apnea STOP Sleep Apnea - mechanical design engineer products: STOP Sleep Apnea - mechanical design engineer products Hx Hypertension No 05/19/24 09:01 Hx Sleep Apnea Yes 05/19/24 09:01 CPAP Yes: NONCOMPLIANT 05/19/24 09:01 BIPAP No 05/19/24 09:01 Do you snore loudly (louder than talking or can be heard Do you often feel tired/ fatigued/ sleepy during daytime? Has anyone observed you stop breathing during sleep? STOP Results Positive 05/19/24 09:01 QUESTION #5 FULL TEXT : Do you snore loudly (louder than talking or can be heard through closed doors)? 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 Specify any problems Hx of Preganancy in last 3 N/A 05/19/24 09:01 Months Nurse Filling Out Transfusion NBUCHER 05/19/24 09:01 & Questions: Date: 05/19/24 05/19/24 09:01 Time: 09:03 05/19/24 09:01 Patient unable to answer at this time (ie. confused, unrespo /Reproduction History /Reproductive History - mechanical design engineer products: /Reproductive Hx- mechanical design engineer products Hx Now Gestational Age (in weeks): EDC: Hx Hx Para Hx Section SAB No 05/19/24 09:01 Active Medications Active Medications: Current Medications Generic Name Dose Route Start Last Admin Trade Name Freq PRN Reason Stop Dose Admin Cefazolin Sodium 2 gm/ N/A 20 mls @ 400 mls/hr 05/26/24 12:00 IV 05/26/24 12:02 PREOP ONE Sodium Chloride 1,000 mls @ 15 mls/hr 05/26/24 10:35 05/26/24 10:46 IV 05/31/24 23:54 15 mls/hr .Q48H LOVE Administration Protocol [facility] Medical History Distal radius fracture, right Wears glasses Depression Anxiety Diabetes Bladder disease Arthritis Low iron High cholesterol Easy bruising Back pain TIA (transient ischemic attack) Vertigo Restless legs Dietary restriction History of IBS Gastric reflux Shortness of breath on exertion CPAP (continuous positive airway pressure) dependence Non-smoker Leg cramps History of pain when walking History of stress test Contusion of left shoulder Left shoulder strain Callus of toe Foot deformity Neuropathy of both feet Home Medications ?Medication ?Instructions ?Recorded ?Last Taken ?Type duloxetine 60 mg capsule,delayed 120 mg PO DAILY 01/1005/25/24 History release gabapentin 800 mg tablet 800 mg PO TID NEUROPATHY 07/1305/25/24 History iron 50 mg iron tablet 1 tab PO DAILY 07/24/2208/14 History magnesium 250 mg tablet 250 mg PO DAILY 07/24/2208/14 History calcium 500 mg (as 1 tab PO DAILY 04/06/2408/14 History carbonate)-vitamin D3 3.125 mcg (125 unit) tablet fluticasone propionate 50 2 spray intranasal DAILY 05/25/24 History mcg/actuation nasal spray,suspension omeprazole 40 mg capsule,delayed 40 mg PO DAILY 05/25/24 History release semaglutide 2 mg/dose (8 mg/3 mL) 2 mg subcut CERDA 04/0605/15/24 History subcutaneous pen injector (Ozempic) acetaminophen 500 mg tablet 1,000 mg (2 x 500 mg) PO Q 8H PRN 04/15/24 Unknown Rx (Acetaminophen Extra Strength) PRN fever or pain 20 da ys #60 tabs oxycodone 5 mg tablet 5 mg PO Q8H PRN severe pain 7 days 04/15/24 05/25/24 Rx #12 TABLETS Allergy/AdvReac Type Severity Reaction Status Date / Time Sulfa (Sulfonamide Allergy Severe Hives Verified 05/26/24 10:37 Antibiotics) Surgical History History of hysterectomy (04/15/24) History of esophagogastroduodenoscopy (EGD) Hx of colonoscopy Hx laparoscopic cholecystectomy History of Hx of toe surgery Hx of foot surgery Hx of toe surgery Hx of sinus surgery Hx of elbow surgery Social History Smoking Status: Never smoker Review of Systems (Anesthesia) ROS Narrative System reviewed and no additional complaints, except as documented. 05/26/24 1114 <Electronically signed by Ricky fair MD> Date _ Ricky Chino MD Cosigner Signature: Date CC: ~ Signed [facility] Work Phone: [phone]) 876-741803-06-[address] [facility] Medical Records Department [address] [place] [address] Pre-Anesthesia Evaluation 05/26/24 1105 MR#: [id number] Acct: [id number] Name: OLGA LIDIA TELLO Rep #:[id number] : 1970 53 From: Ricky Chino MD PCP: Dr. Lulu Luciano MD Status:RE G SDC Y Race: C Location: [place] [address] ASA Classification* ASA Classification ASA Classification: 3 Assessment & Plan Anesthesia* Anesthesia Assessment Anesthesia Assessment: Discussed sedation and/or anesthesia options, risks, benefits, and alternatives with patient/parents/legal guardian/POA. Questions invited. The patient/parents/legal guardian/POA seems to understand and agrees to proceedwith anesthesia plan. Reviewed the physical assessment, medical history, allergy history and patient home medications list prior to surgery/procedure/anesthetic and documented any changes. Performed airway and anesthesia risk assessments. Anesthesia Type Anesthesia Type: General and Block (Patient is consented for axillary block.) History Source History Obtained from:: Patient and Chart Anesthesia Focused Assessment* Temperature: 97.1 F Pulse Rate: 81 Blood Pressure: 129/95 Respiratory Rate: 16 Pulse Ox: 98 Oxygen Delivery Method: Room Air Airway Assessment Mouth opens: >3 cm Mallampati Score: III Teeth Condition: Missing (Patient is edentulous.) Neck Range of motion (ROM): Limited ROM (Slight decrease in extension) Focused Labs Anesthesia Preop lab: CBC WBC 8.2 K/mm3 (4.4-11.0) 05/19/24 10:00 05/19/24 RBC 4.35 M/mm3 (4.2-5.4) 05/19/24 10:00 05/19/24 Hgb 13.6 g/dL (12.0-15.0) 05/19/24 10:00 05/19/24 Hct 42.0 % (37-47) 05/19/24 10:00 05/19/24 Plt Count 280 K/mm3 (150-450) 05/19/24 10:00 05/19/24 CHEMISTRY Potassium 4.1 mmol/L (3.3-5.1) 05/19/24 10:00 05/19/24 Sodium 140 mmol/L (133-145) 05/19/24 10:00 05/19/24 BUN 11 mg/dL (4-19) 05/19/24 10:00 05/19/24 Creatinine 0.8 mg/dL (0.6-1.0) 05/19/24 10:00 05/19/24 Glucose 122 mg/dL (70-99) H 05/19/24 10:00 05/19/24 POC Glucose 131 mg/dL (74-106) H 04/15/24 11:59 04/15/24 COAG PT 13.5 SECONDS (11.7-14.9) 04/15/24 08:10 Urine Test Negative Negative 04/15/24 08:00 04/15/24 Pre-Assessment Diagnosis/Proposed Procedure Planned Operative Procedure(s): ORIF DISTAL RADIUS Anesthesia History Anesthesia History - mechanical design engineer products: Anesthesia History - mechanical design engineer products Hx Hospitalization No 05/19/24 09:01 Any Problems With Anesthesia No 05/19/24 09:01 Cholinesterase deficiency No 05/19/24 09:01 You/Your Family Experience No 05/19/24 09:01 fever (hyperthermia) with Relationship Recent Exposure to Contagious No 05/26/24 10:38 Disease Does patient have nerve No 05/19/24 09:01 stimulator Patient instructed to have device shut off --Does patient have Pacemaker No 05/26/24 10:38 or ICD? When Was Last Pacemaker Check QUESTION #4 FULL TEXT: You/Your Family Experience fever (hyperthermia) with Anesthesia Last Oral Intake Last Oral intake: Last Oral Intake NPO since 00:00 05/26/24 10:38 Meds taken in AM with sips of water? 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 - mechanical design engineer products: PONV - mechanical design engineer products Female Yes 05/19/24 09:01 HX of Motion Sickness Yes 05/19/24 09:01 HX of N/V After Surgery Yes 05/19/24 09:01 Non-Smoker Yes 05/19/24 09:01 Duration of Surgery greater Yes 05/19/24 09:01 than 60 minutes Number of Risk Factors 5 05/19/24 09:01 PONV Score Severe Risk 05/19/24 09:01 Height & Weight Height & Weight: Anesthesia: Height & Weight Height 5 ft 10 in 05/26/24 10:38 Weight: 116 kg 05/26/24 10:38 Body Mass Index (BMI) 36.6 05/26/24 10:38 Respiratory Assessment Respiratory Assessment - mechanical design engineer products: Respiratory Tract Infection Hx - mechanical design engineer products Hx Respiratory Tract Infection No 05/19/24 09:01 STOP Sleep Apnea STOP Sleep Apnea - mechanical design engineer products: STOP Sleep Apnea - mechanical design engineer products Hx Hypertension No 05/19/24 09:01 Hx Sleep Apnea Yes 05/19/24 09:01 CPAP Yes: NONCOMPLIANT 05/19/24 09:01 BIPAP No 05/19/24 09:01 Do you snore loudly (louder than talking or can be heard Do you often feel tired/ fatigued/ sleepy during daytime? Has anyone observed you stop breathing during sleep? STOP Results Positive 05/19/24 09:01 QUESTION #5 FULL TEXT : Do you snore loudly (louder than talking or can be heard through closeddoors)? 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 Specify any problems Hx of Preganancy in last 3 N/A 05/19/24 09:01 Months Nurse Filling Out Transfusion NBUCHER 05/19/24 09:01 & Questions: Date: 05/19/24 05/19/24 09:01 Time: 09:03 05/19/24 09:01 Patient unable to answer at this time (ie. confused, unrespo /Reproduction History /Reproductive History - mechanical design engineer products: /Reproductive Hx- mechanical design engineer products Hx Now Gestational Age (in weeks): EDC: Hx Hx Para Hx Section SAB No 05/19/24 09:01 Active Medications Active Medications: Current Medications Generic Name Dose Route Start Last Admin Trade Name Freq PRN Reason Stop Dose Admin Cefazolin Sodium 2 gm/ N/A 20 mls @ 400 mls/hr 05/26/24 12:00 IV 05/26/24 12:02 PREOP ONE Sodium Chloride 1,000 mls @ 15 mls/hr 05/26/24 10:35 05/26/24 10:46 IV 05/31/24 23:54 15 mls/hr .Q48H LOVE Administration Protocol [facility] Medical History Distal radius fracture, right Wears glasses Depression Anxiety Diabetes Bladder disease Arthritis Low iron High cholesterol Easy bruising Back pain TIA (transient ischemic attack) Vertigo Restless legs Dietary restriction History of IBS Gastric reflux Shortness of breath on exertion CPAP (continuous positive airway pressure) dependence Non-smoker Leg cramps History of pain when walking History of stress test Contusion of left shoulder Left shoulder strain Callus of toe Foot deformity Neuropathy of both feet Home Medications ?Medication ?Instructions ?Recorded ?Last Taken ?Type duloxetine 60 mg capsule,delayed 120 mg PO DAILY 01/1005/25/24 History release gabapentin 800 mg tablet 800 mg PO TID NEUROPATHY 07/1305/25/24 History iron 50 mg iron tablet 1 tab PO DAILY 07/24/2208/14 History magnesium 250 mg tablet 250 mg PO DAILY 07/24/2208/14 History calcium 500 mg (as 1 tab PO DAILY 04/06/2408/14 History carbonate)-vitamin D3 3.125 mcg (125 unit) tablet fluticasone propionate 50 2 spray intranasal DAILY 05/25/24 History mcg/actuation nasal spray,suspension omeprazole 40 mg capsule,delayed 40 mg PO DAILY 05/25/24 History release semaglutide 2 mg/dose (8 mg/3 mL) 2 mg subcut CERDA 04/0605/15/24 History subcutaneous pen injector (Ozempic) acetaminophen 500 mg tablet 1,000 mg (2 x 500 mg) PO Q 8H PRN 04/15/24 Unknown Rx (Acetaminophen Extra Strength) PRN fever or pain 20 da ys #60 tabs oxycodone 5 mg tablet 5 mg PO Q8H PRN severe pain 7 days 04/15/24 05/25/24 Rx #12 TABLETS Allergy/AdvReac Type Severity Reaction Status Date / Time Sulfa (Sulfonamide Allergy Severe Hives Verified 05/26/24 10:37 Antibiotics) Surgical History History of hysterectomy (04/15/24) History of esophagogastroduodenoscopy (EGD) Hx of colonoscopy Hx laparoscopic cholecystectomy History of Hx of toe surgery Hx of foot surgery Hx of toe surgery Hx of sinus surgery Hx of elbow surgery Social History Smoking Status: Never smoker Review of Systems (Anesthesia) ROS Narrative System reviewed and no additional complaints, except as documented. 05/26/24 1114 marv DAVIS> Date _ Ricky Chino MD Cosigner Signature: Date CC: ~ Signed [facility]02-25-2025 Telephone encounter Note* Telephone Encounter - Nasreen Ferreira RN - 05/17/2024 10:54 AM EST Pharmacy comment: Please authorize 90 days supply for the patient. Requested Prescriptions Pending Prescriptions Disp Refills estradiol (ALEXANDRA) 0.05 mg/24 hr patch [Pharmacy Med Name: ALEXANDRA 0.05 MG PATCH] 24 Patch 4 Sig: apply 1 patch two times a week as directed Nasreen Ferreira RN [facility]02-25-2025 Miscellaneous Notes* Telephone Encounter - Nasreen Ferreira RN - 05/17/2024 10:54 AM EST Pharmacy comment: Please authorize 90 days supply for the patient. Requested Prescriptions Pending Prescriptions Disp Refills estradiol (ALEXANDRA) 0.05 mg/24 hr patch [Pharmacy Med Name: ALEXANDRA 0.05 MG PATCH] 24 Patch 4 Sig: apply 1 patch two times a week as directed Nasreen Ferreira RN [facility] Discharge instructions Patient Education 05/15/2024 01:08:10 ED Moderate (Conscious) Sedation (01/2018) (CUSTOM) Adult Moderate (Conscious) Sedation Discharge Instructions Refer to this sheet in the next few weeks. These instructions provide you with information on caring for yourself after your procedure. Your health care provider may also give you more specific instructions. Your treatment has been planned according to current medical practices, but problems sometimes occur. Call your health care provider if you have any problems or questions after your procedure. WHAT TO EXPECT AFTER THE PROCEDURE After your procedure: You may feel sleepy, clumsy, and have poor balance for several hours. Vomiting may occur if you eat too soon after the procedure. HOME CARE INSTRUCTIONS Do not participate in any activities where you could become injured for at least 24 hours. Do not: ? Drive. ? Swim. ? Ride a bicycle. ? Operate heavy machinery. ? Cook. ? Use power tools. ? Climb ladders. ? Work from a high place. Do not make important decisions or sign legal documents until you are improved. If you vomit, drink water, juice, or soup when you can drink without vomiting. Make sure you have little or no nausea before eating solid foods. Only take cyak-jzv-rxslnmu or prescription medicines for pain, discomfort, or fever as directed by your health care provider. Make sure you and your family fully understand everything about the medicines given to you, including what side effects may occur. You should not drink alcohol, take sleeping pills, or take medicines that cause drowsiness for at least 24 hours. If you smoke, do not smoke without supervision. If you are feeling better, you may resume normal activities 24 hours after you were sedated. Keep all appointments with your health care provider. SEEK MEDICAL CARE IF: Your skin is pale or bluish in color. You continue to feel nauseous or vomit. Your pain is getting worse and is not helped by medicine. You have bleeding or swelling. You are still sleepy or feeling clumsy after 24 hours. SEEK IMMEDIATE MEDICAL CARE IF: You develop a rash. You have difficulty breathing. You develop any type of allergic problem. You have a fever. MAKE SURE YOU: Understand these instructions. Will watch your condition. Will get help right away if you are not doing well or get worse. Document Released: 12/28/2013 Document Reviewed: 12/28/2013 [facility] Patient Information 2015 [employer] [facility]. This information is not intended to replace advicegiven to you by your health care provider. Make sure you discuss any questions you have with your health care provider. 05/15/2024 01:07:32 Fracture, Upper Extremity Upper Extremity Fracture You have a break (fracture) of the arm, wrist, or hand. This may be a small crack in the bone. Or it may be a major break, with the broken parts pushed out of position. Most fractures will heal without surgery. But you may need surgery if the bones are far out of place or if the break is near the elbow. Treatment is with a special sling called a shoulder immobilizer, or a splint or cast, depending on the type of fracture and where the fracture is located. This fracture takes 4 to 6 weeks or longer to heal. The cast may need to be changed in 2 to 3 weeks as swelling goes down. Home care Follow these guidelines when caring for yourself: If you were given a shoulder immobilizer, leave it in place. This will support the injured arm at your side. This is the best position for bone healing. The shoulder immobilizer can be adjusted. If it becomes loose, adjust it so that your forearm is level with the ground (horizontal). Your hand should be level with your elbow. Put an ice pack on the injured area. Do this for 20 minutes every 1 to 2 hours the first day for pain relief. You can make an ice pack by wrapping a plastic bag of ice cubes in a thin towel. As the ice melts, be careful that the cast/splint/sling doesn t get wet. You can put the ice pack inside thesling and directly over the splint or cast. Continue using the ice pack 3 to 4 times a day for the next 2 days. Then use the ice pack as needed to ease pain and swelling. Keep the cast, splint, or sling completely dry at all times. Bathe with your cast, splint, or slingout of the water. Protect it with a large plastic bag, rubber-banded or taped at the top end. If a fiberglass cast, splint, or sling gets wet, you can dry it with a social sciences department chair. You may use acetaminophen or ibuprofen to control pain, unless another pain medicine was prescribed. If you have chronic liver or kidney disease, talk with your healthcare provider before using thesemedicines. Also talk with your provider if you ve had a stomach ulcer or gastrointestinal bleeding. Don t put creams or objects under the cast if you have itching. Follow-up care Follow up with your healthcare provider as advised. This is to make sure the bone is healing the way it should. X-rays may be taken. You will be told of any new findings that may affect your care. When to seek medical advice Call your health care provider right away if any of these occur: The cast or splint cracks The plaster cast or splint becomes wet or soft The fiberglass cast or splint stays wet for more than 24 hours Bad odor from the cast or wound fluid stains the cast Tightness or pain under the cast or splint gets worse Fingers become swollen, cold, blue, numb, or tingly You can t move your fingers Skin around cast or splint becomes red or irritated Fever of 100.4 F (38 C) or higher, or chills as directed by your healthcare provider [id number] [employer] [address] [place] [address]. All rights reserved. This information is not intended as a substitute for professional medical care. Always follow yourhealthcare professional's instructions. Follow Up Care 05/14/2024 22:03:53 With:WARD KURTZ MD Address: [address] [place] [address] [facility] [place] [address] [phone] When:2-4 days With:LULU LUCIANO MD Address: [address] [place] [address]- When:2-4 days [facility] 02-23-2025 Note Discharge Instructions Thank you for allowing [facility] to assist you with your healthcare needs. The following is importantdischarge information regarding your hospital visit. Diagnosis from Today's Visit Contusion of right knee Fall from slipping on ice Fracture of right distal radius Fracture of right ulnar styloid What to Do Next Instructions from Your Care Team Monitor for signs or symptoms such as increased pressure, firmness, pain, numbness, tingling, changes in colors of your skin such as discoloration or becoming more pale or feeling cooler to the touch. If these occur then we are concerned for something called compartment syndrome and you will need to return to an emergency department immediately. Discharge Home Equipment - Ordered -- Sling, Arm Right, 99 month(s), 05/15/24 1:28:00 EST Discharge Return to Work, School, or Sports (Return to Work, School, or Sports) - Ordered -- 05/16/24, May return to: work, 05/15/24 1:08:00 EST Post Acute Orders No qualifying data available. You Need to Schedule the Following Appointments Follow Up with WARD KURTZ MD When:Within 2-4 days Where:[address] [place] [address]- [phone] Follow Up with LULU LUCIANO MD When:Within 2-4 days Where:[address] [place] [address]- Allergies NKA Immunizations This Visit Given Vaccine Datetetanus/diphth/pertuss (Tdap) adult/adol 05/14/2024 Medications Please ask your primary doctor or pharmacist before taking any other medication not listed, including over the counter drugs, herbal medications, vitamins and or supplements as they may interact withyour home medications. What How Much When Why Instructions Last Dose New acetaminophen-oxyCODONE (acetaminophen-oxyCODONE 325 mg-5 mg oral tablet) 1 tab(s) by mouth Every 6 hours as needed for for pain Fracture of right distal radius Fracture of right ulnar styloid Duration: 3 Days Printed Prescription New ibuprofen (ibuprofen 600 mg oral tablet) 1 tab(s) by mouth Every 6 hours as needed for for pain Duration: 7 Days Take with food or milk. Printed Prescription Please take this list to your next doctor s visit. Bring all medications you take, including over the counter medications, herbals and other supplements with you to your doctor s visit. Patients and families are reminded to discard old lists and to update any records with all medication providers or retail pharmacies. Education Materials Adult Moderate (Conscious) Sedation Discharge Instructions Refer to this sheet in the next few weeks. These instructions provide you with information on caring for yourself after your procedure. Your health care provider may also give you more specific instructions. Your treatment has been planned according to current medical practices, but problems sometimes occur. Call your health care provider if you have any problems or questions after your procedure. WHAT TO EXPECT AFTER THE PROCEDURE After your procedure: You may feel sleepy, clumsy, and have poor balance for several hours. Vomiting may occur if you eat too soon after the procedure. HOME CARE INSTRUCTIONS Do not participate in any activities where you could become injured for at least 24 hours. Do not: ? Drive. ? Swim. ? Ride a bicycle. ? Operate heavy machinery. ? Cook. ? Use power tools. ? Climb ladders. ? Work from a high place. Do not make important decisions or sign legal documents until you are improved. If you vomit, drink water, juice, or soup when you can drink without vomiting. Make sure you have little or no nausea before eating solid foods. Only take dqng-zon-gwilcuk or prescription medicines for pain, discomfort, or fever as directed by your health care provider. Make sure you and your family fully understand everything about the medicines given to you, including what side effects may occur. You should not drink alcohol, take sleeping pills, or take medicines that cause drowsiness for at least 24 hours. If you smoke, do not smoke without supervision. If you are feeling better, you may resume normal activities 24 hours after you were sedated. Keep all appointments with your health care provider. SEEK MEDICAL CARE IF: Your skin is pale or bluish in color. You continue to feel nauseous or vomit. Your pain is getting worse and is not helped by medicine. You have bleeding or swelling. You are still sleepy or feeling clumsy after 24 hours. SEEK IMMEDIATE MEDICAL CARE IF: You develop a rash. You have difficulty breathing. You develop any type of allergic problem. You have a fever. MAKE SURE YOU: Understand these instructions. Will watch your condition. Will get help right away if you are not doing well or get worse. Document Released: 12/28/2013 Document Reviewed: 12/28/2013 [facility] Patient Information 2015 [employer]. This information is not intended to replace advicegiven to you by your health care provider. Make sure you discuss any questions you have with your health care provider. Upper Extremity Fracture You have a break (fracture) of the arm, wrist, or hand. This may be a small crack in the bone. Or it may be a major break, with the broken parts pushed out of position. Most fractures will heal without surgery. But you may need surgery if the bones are far out of place or if the break is near the elbow. Treatment is with a special sling called a shoulder immobilizer, or a splint or cast, depending on the type of fracture and where the fracture is located. This fracture takes 4 to 6 weeks or longer to heal. The cast may need to be changed in 2 to 3 weeks as swelling goes down. Home care Follow these guidelines when caring for yourself: If you were given a shoulder immobilizer, leave it in place. This will support the injured arm at your side. This is the best position for bone healing. The shoulder immobilizer can be adjusted. If it becomes loose, adjust it so that your forearm is level with the ground (horizontal). Your hand should be level with your elbow. Put an ice pack on the injured area. Do this for 20 minutes every 1 to 2 hours the first day for pain relief. You can make an ice pack by wrapping a plastic bag of ice cubes in a thin towel. As the ice melts, be careful that the cast/splint/sling doesn t get wet. You can put the ice pack inside thesling and directly over the splint or cast. Continue using the ice pack 3 to 4 times a day for the next 2 days. Then use the ice pack as needed to ease pain and swelling. Keep the cast, splint, or sling completely dry at all times. Bathe with your cast, splint, or slingout of the water. Protect it with a large plastic bag, rubber-banded or taped at the top end. If a fiberglass cast, splint, or sling gets wet, you can dry it with a social sciences department chair. You may use acetaminophen or ibuprofen to control pain, unless another pain medicine was prescribed. If you have chronic liver or kidney disease, talk with your healthcare provider before using thesemedicines. Also talk with your provider if you ve had a stomach ulcer or gastrointestinal bleeding. Don t put creams or objects under the cast if you have itching. Follow-up care Follow up with your healthcare provider as advised. This is to make sure the bone is healing the way it should. X-rays may be taken. You will be told of any new findings that may affect your care. When to seek medical advice Call your health care provider right away if any of these occur: The cast or splint cracks The plaster cast or splint becomes wet or soft The fiberglass cast or splint stays wet for more than 24 hours Bad odor from the cast or wound fluid stains the cast Tightness or pain under the cast or splint gets worse Fingers become swollen, cold, blue, numb, or tingly You can t move your fingers Skin around cast or splint becomes red or irritated Fever of 100.4 F (38 C) or higher, or chills as directed by your healthcare provider [id number] [employer] [address] [place] [address], [place] [address]. All rights reserved. This information is not intended as a substitute for professional medical care. Always follow yourhealthcare professional's instructions. Additional Information VACCINATE! IT SAVES LIVES! Members of the community who have not yet received the COVID-19 vaccine and would like to receive it can visit one of [facility] vaccine clinics. There are many vaccine clinic locations within the [facility]. For locations and available times, please visit [email or web address] It is important to note that some COVID mobile vaccine clinics are held outdoors and may be canceled in rainy or stormy conditions. To learn more about pediatric vaccinations (ages 5-11), we invite you to visit the [facility] webpage. [email or web address] learn more about the COVID-19 vaccine, we invite you to visit the CDC website for a list of frequently asked questions. https://www.cdc.gov/coronavirus/2019-ncov/vaccines/faq.html [facility] Patient Portal Access Instructions: Stay connected with your healthcare team and access your personal medical information anytime with the [facility] Patient Portal. If you would like a full copy of your medical records please contact the [facility] Medical Records Department Thursday through Thursday between 8a.m. and 4:30p.m. Please follow the directions below to access the portal: 1.Access the email account you provided upon registration to the hospital.2.Look for an invitation email from [facility].3.Open the email and access the invitation link: Accept Invitation to [facility]4.Fill in the required gonzalez to create your account. Sign into [email or web address] with your username and password that you created in the above steps to stay up to date. You can then view a summary of results, a summary of your visits, and the ability to download your summaries to your computer or send the information securely to a physician. Remember that your healthcare information is confidential, so carefully consider who you will allow to register on the [facility] Patient Portal for access to your information. You can also access the [facility] Patient Portal on the [employer]. Simply click on Health Records under [facility] and then click on the [employer] logo. HOW TO SAFELY DISPOSE OF PRESCRIPTION MEDICATIONS Please use one of the following methods to safely dispose of your unused medications. 1.Use a drug disposal kit: the drug disposal pouch allows you to safely discard your old and unuseddrugs. Ask your nurse to give you one when you are discharged.2.Visit a local take-back location: Many local pharmacies and police departments have programs that collect old and unwanted prescriptiondrugs. Call your local pharmacy or go to http://Aula 7.Future Domain/5H6Ul7p to find one close to you.3.Make use of household items: Use cat litter or old coffee grounds to dispose medications if other options arenot available. Mix your drugs with these household products, seal them in an airtight container andthrow it into the garbage. Call [facility]: [phone] to be sure your drugs can be disposed of in this way. Some medicines may require a different approach.4.Never flush your medications down the toilet. IF YOU HAVE BEEN PRESCRIBED AN OPIOIDS FOR PAIN If you have been prescribed an opioid (such as hydrocodone, oxycodone or morphine), it is critical to understand the possible side effects and risks of opioid pain medications. Even when taken as directed, opioids can have several side effects including: Tolerance, meaning you might need to take more of a medication for the same pain relief. Nausea, vomiting and/or constipation. Sleepiness, dizziness, dry mouth, confusion, depression or itching. Physical dependence, meaning you have withdrawal symptoms when a medication is stopped ? this can develop within a few days. KNOW YOUR RESPONSIBILITIES It is important to know exactly how much and how often to take the opioid pain medications you are prescribed. Never take opioids in higher amounts or more often than prescribed. Do not combine opioids with alcohol or other drugs that cause drowsiness, such as benzodiazepines, also known as benzos,including diazepam and alprazolam, muscle relaxants or sleep aids. Never sell or share prescriptionopioids. This is illegal. Store opioids in a secure place and out of reach of others (including children, family, friends and visitors). The last page(s) of this document has been signed and retained as a CHART COPY Signatures Patient Education Materials ED Moderate (Conscious) Sedation (01/2018) (CUSTOM) Fracture, Upper Extremity Medication Leaflets My discharge plan and instructions have been reviewed and explained to me and I,OLGA LIDIA TELLO understand my current condition and have read and understand these discharge instructions. I have received a written copy of the plan/instructions. If I have questions, I am aware that I should contact my doctor. Patient/Pharmacy Care Coordinator Signature: Date/Time: Relationship to Patient: Witness Name/Signature: Date/Time: [facility]02-23-2025 Note* Exam Date Time Procedure Performing Provider Status 05/15/24 12:52 AM XR Wrist Minimum 3 Views Right PAUL BUCKNER MD; Auth (Verified) [id number] ORIGINAL EXAMINATION: THREE XRAY VIEWS OF THE RIGHT WRIST 05/15/2024 12:53 am COMPARISON: Right wrist x-ray on 05/14/2024 HISTORY: ORDERING SYSTEM PROVIDED HISTORY: Reason for Exam: pain FINDINGS: Right wrist is now in a cast. Comminuted intra-articular fracture of distal right radius is again seen. The lateral and anterior angulation and displacement is decreased compared with prior exam. Ulnar styloid process fracture is laterally displaced also. IMPRESSION: Improved alignment of distal right radius fracture. Interpreted by: Paul Verduzco MD Preliminary Report By: Paul Verduzco MD Electronically signed By Paul Verduzco MD Dictated Date: 05/15/2024 1:01:27 AM Prelim Date: 05/15/2024 1:03:23 AM Sign Date: 05/15/2024 1:03:23 AM Ordering Provider: [facility]02-22-2025 Note* Exam Date Time Procedure Performing Provider Status 05/14/24 11:06 PM XR Knee 3 Views Right PAUL VERDUZCO MD; Auth (Verified) [id number] ORIGINAL EXAMINATION: THREE XRAY VIEWS OF THE RIGHT KNEE 05/14/2024 11:09 pm COMPARISON: Right knee x-ray on 08/25/2018 HISTORY: ORDERING SYSTEM PROVIDED HISTORY: Reason for Exam: Pain Injury due to fall. FINDINGS: Right knee hemiarthroplasty of the lateral tibiofemoral compartment appears unchanged. There is no evidence of prosthesis loosening or hardware malfunction. No fracture or dislocation of the right knee is present. There is mild patellofemoral arthritis. There is no evidence of joint effusion. No periarticular calcifications are present. IMPRESSION: 1. No acute fracture or dislocation of the right knee. 2. Mild patellofemoral arthritis. 3. Right knee hemiarthroplasty. Interpreted by: Paul Verduzco MD Preliminary Report By: Paul Verduzco MD Electronically signed By Paul Verduzco MD Dictated Date: 05/14/2024 11:54:22 PM Prelim Date: 05/14/2024 11:56:04 PM Sign Date: 05/14/2024 11:56:04 PM Ordering Provider: [facility]02-22-2025 Note* Exam Date Time Procedure Performing Provider Status 05/14/24 11:05 PM XR Wrist Minimum 3 Views Right Jamar IRWIN ENEDICT Y DO; Auth (Verified) [id number] ORIGINAL EXAMINATION: THREE XRAY VIEWS OF THE RIGHT WRIST 05/14/2024 11:07 pm COMPARISON: None. HISTORY: ORDERING SYSTEM PROVIDED HISTORY: Reason for Exam: Right wrist pain and deformity status post fall. FINDINGS: Acute, comminuted, displaced impacted fracture of distal radius with intra-articular involvement. Distal fracture fragments are displaced radially by 1.6 cm. There is also ventral angulation. Mildly displaced fracture of ulna styloid. Adjacent soft tissue swelling. No radiopaque foreign body. IMPRESSION: Acute comminuted, impacted, intra-articular fracture of distal radius with ventral and radial angulation. Mildly displaced fracture of ulna styloid. I have personally reviewed the images of this examination and agree with the resident's findings and interpretation. Interpreted by: Mayco Irwin DO Preliminary Report By: Katherine Jefferson Electronically signed By Mayco Irwin DO Dictated Date: 05/14/2024 11:55:05 PM Prelim Date: 05/14/2024 11:58:08 PM Sign Date: 05/15/2024 12:15:52 AM Ordering Provider: [facility]02-18-2025 Telephone encounter Note* Telephone Encounter - Lulu Luciano MD - 05/10/2024 4:21 PM EST The following approved medication requests have been transmitted electronically. Requested Prescriptions Pending Prescriptions Disp Refills gabapentin (NEURONTIN) 800 mg tablet 90 tablet 2 Sig: Take 1 tablet by mouth three times a day for 90 days. Lulu Luciano MD [facility]02-18-2025 Miscellaneous Notes* Telephone Encounter - Lulu Luciano MD - 05/10/2024 4:21 PM EST The following approved medication requests have been transmitted electronically. Requested Prescriptions Pending Prescriptions Disp Refills gabapentin (NEURONTIN) 800 mg tablet 90 tablet 2 Sig: Take 1 tablet by mouth three times a day for 90 days. Lulu Luciano MD * Telephone Encounter - Kelly Sahni LPN - 05/10/2024 8:13 AM EST Patient has been identified by name and date of : Yes Patient phones for refill(s): Requested Prescriptions Pending Prescriptions Disp Refills gabapentin (NEURONTIN) 800 mg tablet 90 tablet 2 Sig: Take 1 tablet by mouth three times a day for 90 days. Date of last office visit in primary care: 03/31/2024 Date of next office visit in primary care: 05/27/2024 Please advise. Thank you. Kelly Sahni LPN. [facility] Telephone encounter Note * Telephone Encounter - Kelly Sahni LPN - 05/10/2024 8:13 AM EST Patient has been identified by name and date of : Yes Patient phones for refill(s): Requested Prescriptions Pending Prescriptions Disp Refills gabapentin (NEURONTIN) 800 mg tablet 90 tablet 2 Sig: Take 1 tablet by mouth three times a day for 90 days. Date of last office visit in primary care: 03/31/2024 Date of next office visit in primary care: 05/27/2024 Please advise. Thank you. Kelly Sahni LPN. [facility]02-17-2025 Telephone encounter Note* Telephone Encounter - Tonya Draper RN - 05/09/2024 11:10 AM EST Mik livingston sent ot pt with this information as well. [facility]02-17-2025 Miscellaneous Notes* Telephone Encounter - Tonya Draper RN - 05/09/2024 11:10 AM EST Mik livingston sent ot pt with this information as well. * Telephone Encounter - Sun Wei - 05/09/2024 9:03 AM EST LVM patient needs rescheduled after 07/19/2024 to be a year out from last year's Mammo Screen. Patient scheduled herself through [email or web address] too early. Sun Wei Pss * Telephone Encounter - Lulu Luciano MD - 05/07/2024 1:23 PM EST Filed order * Telephone Encounter - Kelly Sahni LPN - 05/05/2024 8:44 AM EST Mammogram order pending, please review/file, then will forward to PSS to contact Patient to schedule. Kelly Sahni LPN * Telephone Encounter - Genny Tabares - 05/05/2024 8:41 AM EST Pt made a request via [employer] for a mammogram screening. Please advise. documented in this [facility]02-[facility] Telephone encounter Note * Telephone Encounter - Sun Wei - 05/09/2024 9:03 AM EST LVM patient needs rescheduled after 07/19/2024 to be a year out from last year's Mammo Screen. Patient scheduled herself through MyChart too early. Isaac Clark [facility]02-15-2025 Telephone encounter Note* Telephone Encounter - Lulu Luciano MD - 05/07/2024 1:23 PM EST Filed order [facility]02-13-2025 Telephone encounter Note* Telephone Encounter - Kelly Sahni LPN - 05/05/2024 8:44 AM EST Mammogram order pending, please review/file, then will forward to PSS to contact Patient to schedule. Kelly Sahni LPN [facility]02-13-2025 Telephone encounter Note* Telephone Encounter - Genny Tabares - 05/05/2024 8:41 AM EST Pt made a request via [employer] for a mammogram screening. Please advise. [facility]02-12-2025 [facility] History of Present illness Narrative* Charlie Rizzo - 05/04/2024 12:11 PM EST FOLLOW UP PODIATRIC OFFICE VISIT Chief Complaint: This 53 year old who presents for follow up:wart of right foot. Patient presents to clinic for follow-up right foot wart. Patient is using compound w and feels this is helping. Of note, she was filing a callus down to the right foot and scraped her great toe. Shehas no other complaints. She has yet to hear about her diabetic shoes. PAIN EVALUATION No data found in the last 1 encounters. Hemoglobin A1C Date Value Ref Range Status 04/01/2024 4.9 4.3 - 5.6 % Final Comment: [place] [employer] guidelines indicate that patients with HgbA1c in the range 5.7-6.4% are at increased risk for development of diabetes, and intervention by lifestyle modification may be beneficial. HgbA1c greater or equal to 6.5% is considered diagnostic of diabetes. 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 Talha gannon MRA in 2013 Anxiety and depression Benign paroxysmal positional vertigo not an issue since 2006 Cataract Chronic cholecystitis 2008 Diabetes ([facility]) 2009 Dizziness and giddiness Elevated AST (SGOT) 10/16/2011 Esophageal reflux Excessive or frequent menstruation 06/19/2008 Family history of cardiac disorder in mother 12/23/2013 Fibromyalgia Hallux valgus (acquired) 01/12/2006 Hx-TIA (transient ischemic attack) January 2012 [facility] Insomnia Mixed hyperlipidemia 03/19/2006 Resolved Morbid obesity with BMI of 40.0-44.9, adult ([facility]) 09/12/2014 Myalgia and myositis, unspecified Neuropathy Dr. Schmidt managing WILTON (obstructive sleep apnea) non compliant with CPAP Other enthesopathy of ankle and tarsus 01/12/2006 Other osteoporosis Restless leg syndrome 08/16/2015 Dr. Schmidt managing Retinal detachment 08/17/2015 Stage 3 chronic kidney disease ([facility]) 07/15/2022 Ulnar neuropathy of right upper extremity Current Outpatient Medications Medication Sig Magnesium 250 mg tab Take 250 mg by mouth once daily. oxyCODONE IR (ROXICODONE) 5 mg immediate release tablet Take 5 mg by mouth every 6 hours as needed. estradiol (VIVELLE-DOT) 0.05 mg/24 hr patch Apply 1 Patch as directed two times a week. TWICE WEEKLY semaglutide (OZEMPIC) 2 mg/dose (8 mg/3 mL) pen injector Inject 2 mg subcutaneously one time a week. ferrous sulfate (IRON ORAL) Take 300 mg by mouth. MULTIVITAMIN ORAL Take by mouth. fluticasone (FLONASE) 50 mcg/actuation nasal spray instill 2 spray into each nostril once daily Rinse mouth after use tiZANidine HCl (ZANAFLEX) 2 mg capsule Take 2 capsules by mouth every 8 hours as needed. gabapentin (NEURONTIN) 800 mg tablet Take 1 tablet by mouth three times a day for 90 days. sertraline (ZOLOFT) 50 mg tablet Take 1 tablet by mouth once daily. cholecalciferol, Vitamin D3, (VITAMIN D3) 1,250 mcg (50,000 unit) cap capsule Take 1 capsule by mouth one time a week. meloxicam (MOBIC) 15 mg tablet Take 1 tablet by mouth once daily. With food. rosuvastatin (CRESTOR) 5 mg tablet Take 1 tablet by mouth once daily. omeprazole (PRILOSEC) 40 mg capsule Take 1 capsule by mouth once daily. Lancing Device (LANCING DEVICE WITH LANCETS) misc Check blood sugar once daily Lancets lancets Test blood sugar(s) once daily. Dx: E11.9. New onset type 2 diabetes Insulin: No No current facility-administered medications for this visit. ALLERGIES Allergen Reactions Povidone-Iodine Hives Sulfa (Sulfonamide * Rash PAST SURGICAL HISTORY Procedure Laterality Date CATARACT EXTRACTION HX Right 05/2015 COLONOSCOPY 09/15/2022 COLONOSCOPY FLX DX W/COLLJ SPEC WHEN PFRMD 08/22/2015 Colonoscopy (MAC) COLONOSCOPY SCREENING 2021 EGD 09/15/2022 EGD W/O BRSH SPEC VARICIES INJ 2021 ENDOMETRIAL BX W/WO ENDOCERVIX BX W/O DILAT SPX 06/01/2008 Irregular Menses, Menorrhagia and Thickened Lining ESOPHAGOGASTRODUODENOSCOPY TRANSORAL DIAGNOSTIC 08/22/2015 EGD (MAC) HYSTERECTOMY 04/15/2024 TLH, bilateral salpingectomy, extensive lysis of adhesions, cystoscopy INCISE FINGER TENDON SHEATH Right 07/09/2023 right middle and ring trigger release. INCISE FINGER TENDON SHEATH Right 07/09/2023 Right middle and ring trigger finger releases LAPAROSCOPY SURG CHOLECYSTECTOMY 08/19/2007 LIGATE FALLOPIAN TUBE at last csection NEUROPLASTY &/TRANSPOSITION ULNAR NERVE ELBOW Right 11/27/2023 Right elbow ulnar nerve decompression PAST SURGICAL HISTORY OF x 4 PAST SURGICAL HISTORY OF 2022 foot surgery, multiple bilat PAST SURGICAL HISTORY OF bilateral ankle fractures PAST SURGICAL HISTORY OF 06/30/2014 right 2nd toe arthroplasty with tenotomies 3rd, 4th, and 5th toe - [facility]- Dr. Conteh PAST SURGICAL HISTORY OF Right 04/2015 retinal tear PAST SURGICAL HISTORY OF Right right knee surgery TONSILLECTOMY & ADENOIDECTOMY <AGE 11 1976 Physical Exam: OBJECTIVE: Constitutional: Pt is a well developed 53 year old female who is alert, oriented, cooperative and in no apparent distress. Eyes: Following during examination. No redness or drainage. Respiratory: RR normal and nonlabored. Even breathing. No evidence of distress. Psychology: Patient is engaged during conversation. Normal affect and mood. Does not appear depressed or anxious. NVSI unchanged from previous visit. Dermatological: There is pre-ulcerative callus to the medial aspect of left first metatarsal. This was reduced withtissue nippers and she has superficial, noninfected ulceration about 1 mm x 3 mm with granular base. There are no signs of infection. There is callus to plantar aspect of right 1st metatarsal with superficial noninfected abrsaion. There is 2 mm x 2 mm verruca to right foot. Musculoskeletal/Orthopaedic: Patient has no pain to palpation of b/l feet Large bunion is noted to b/l feet. ASSESSMENT: Callus (primary encounter diagnosis) Plantar wart, right foot Ulcer of toe of left foot, limited to breakdown of skin ([facility]) PLAN: Callus to right 1st metatarsal was reduced with 15 blade, tissue nippers and dremmel. Await diabetic shoes which I feel will be a significant benefit to this patient as it hopefully will provide offloading. Will have patient use pummice stone carefully as needed to reduce this callus but she can also benefit coming every month to have me perform this. Discussed small abrasion of right 1st metatarsal. She will use topical antibiotic She did have callus of left 1st metatarsal that was debrided with tissue nippers exposing a 1 mm x 3 mm ulceatoin. All nonviable tissue was debrided today with tissue nippers thru dermis. Will have her treat with topical antibiotic cream. I will place her in post-p shoe to help avoid rubbing. I feel this was brought on by wearing narrow shoes. She needs to use wider shoes until she receives diabet ic shoes Wart of right foot was debrided with 15 blade. Tca applied under occlusion. Continue with compund love Rizzo DPM * Trish Barnett LPN - 05/03/2024 2:56 PM EST AMB ROOMING INTAKE FLOWSHEET DATA Patient presents with: Left Foot - Established Patient, Follow Up, Diabetic Foot Care Right Foot - Established Patient, Follow Up, Diabetic Foot Care, Cristina Wart: Callous vs wart Trish Barnett LPN documented in this encounterF[facility]02-11-2025 Instructions* Patient Instructions* Charlie Rizzo - 05/03/2024 3:18 PM EST Trichloroacetic acid (TCA) has been applied to the plantar warts. Rinse off in 12 hours and keep clean and dry. May bathe and shower normally starting the day after treatment The area is expected to burn and blister in about 1-3 days, if painful soak in plain, cool water. If blistered, you may drain the blister with a clean, STERILIZED needle and apply OTC antibiotic ointment and band aid to area. Repeat 2-3 times daily as needed. Tylenol or Aleve as needed for pain, provided you have no allergies to either of these. Keep scheduled follow up appointment to have wart(s) re-evaluated and/or additional treatments. Apply topical antibiotic to left foot wound and band aide until healed Would use surgical shoe on left foot documented in this encounterFulton [facility] Center02-11-2025 NoteOhio[facility]01-31-2025 NoteOhio[facility]01-31-2025 History of Present illness Narrative* Yanni Malone MD - 04/22/2024 1:22 PM EST DATE OF SERVICE: 04/22/2024 PROBLEM: Olga Lidia Tello presents for postop visit. SURGERY & DATE: 04/15/2024 Total laparoscopic hysterectomy with bilateral salpingectomy and extensive lysis of adhesions. PATHOLOGY: benign, reviewed and will be scanned in SUBJECTIVE/INTERVAL HISTORY: Olga Lidia Tello reports that she feels well. No fever or chills. No shortness of breath, cough, or chest pain. No incisional redness, swelling, or drainage. Was consitpatedbut things are moving through now. Appetite average. Urination improved Having a lot of hot flahses, some before surgery but worse now, mostly at night SENSITIVE EXAM: Sensitive exam not performed. OBJECTIVE: HEENT: Normocephalic, atraumatic, mucus membranes moist, and no lesions . ABDOMEN: Abdomen soft, non-tender, no hepatosplenomegaly. Incisions healing well. . ASSESSMENT: postop, climacteric PLAN: 1. Discussed results of pathology and implications with patient. 2. Postop restrictions reviewed. r/b/a to trial of estrogen reviewed, risks of VTE/stroke/AK [id number], she desires trial of patch Yanni Malone MD documented in this encounterFulton [facility] Center01-27-2025 Telephone encounter Note * Telephone Encounter - Micki Sahni RN - 04/18/2024 4:13 PM EST Patient has surgery on 04/15. Patient has a post op on 04/22. Do you want UA and culture ordered? Micki Sahni RN [facility]01-27-2025 Miscellaneous Notes* Telephone Encounter - Micki Sahni RN - 04/18/2024 4:13 PM EST Patient has surgery on 04/15. Patient has a post op on 04/22. Do you want UA and culture ordered? Micki Sahni RN documented in this encounterFulton County Health Center01-27-2025 NoteHNO ID: [id number] Author: IRASEMA SAMS RN Service: ? Author Type: Registered Nurse Type: Progress Notes Filed: 04/18/2024 14:42 Note Text: View External Cardiology - EKG [ID [id number]][facility] 04-18-2024 History of Present illness Narrative* Irasema Sams RN - 04/18/2024 2:42 PM EST View External Cardiology - EKG [ID [id number]] documented in this encounterFulton County Health Center01-27-2025 NoteOhiohealth [facility]01-27-2025 History of Present illness Narrative* Yanni Malone MD - 04/18/2024 1:14 PM EST Patient underwent total laparoscopic hysterectomy with bilateral salpingectomy and extensive lysis of adhesions. There were omental adhesions as well as adhesions of the uterus to the anterior abdominal wall. Between the 2 sets of adhesions the additional time required was greater than 20 minutes. A cystoscopy was also performed. Patient was discharged home with routine instructions and follow-up. Pathology is pending. Yanni Malone MD documented in this encounterFulton County Health Center01-24-2025 Evaluation note* Diagnosis Onset Date Resolution Status Admit Date Adhesion of omentum acute Janua ry 2024 7:45am Adenomyosis resolved April 15, 2024 7:45am Dysmenorrhea resolved March 7:45am Menorrhagia with irregular cycle resolved April 15 7:45am [facility] Work Phone: [phone]) 366-627101-10-2025 Instructions* Patient Instructions* Charlie Rizzo - 04/01/2024 2:40 PM EST Trichloroacetic acid (TCA) has been applied to the plantar warts. Rinse off in 12 hours and keep clean and dry. May bathe and shower normally starting the day after treatment The area is expected to burn and blister in about 1-3 days, if painful soak in plain, cool water. If blistered, you may drain the blister with a clean, STERILIZED needle and apply OTC antibiotic ointment and band aid to area. Repeat 2-3 times daily as needed. Tylenol or Aleve as needed for pain, provided you have no allergies to either of these. Keep scheduled follow up appointment to have wart(s) re-evaluated and/or additional treatments. Diabetes Foot Care Instructions When you have diabetes, proper foot care is very important. Poor foot care may lead to amputation of a foot or leg. As a person with diabetes, you are more vulnerable to foot problems, because diabetes can damage your nerves and reduce blood flow to your feet. Here are some diabetes foot care tips to follow: Wash and Dry Your Feet Daily Use mild soaps Use warm water Pat your skin dry; do not rub. Thoroughly dry your feet. After washing, use lotion on your feet to prevent cracking. Do not put lotion between your toes. Examine Your Feet Each Day Check the tops and bottoms of your feet. Have someone else look at your feet if you cannot see them. Check for dry, cracked skin. Look for blisters, cuts, scratches, or other sores. Check for redness, increased warmth, or tenderness when touching any area of your feet. Check for ingrown toenails, corns, and calluses. If you get a blister or sore from your shoes, do not pop it. Apply a bandage and wear a differentpair of shoes. Take Care of Your Toenails Cut toenails after bathing, when they are soft. Cut toenails straight across and smooth with a nail file. Avoid cutting into the corners of toes. Do not cut cuticles. If you have neuropathy (or decreased sensation in your feet) a command and control officer should always cut your toenails. Be Careful When Exercising Walk and exercise in comfortable shoes. Do not exercise when you have open sores on your feet. Protect Your Feet With Shoes and Socks Never go barefoot. Always protect your feet by wearing shoes or hard-soled slippers or footwear. Avoid shoes with high heels and pointed toes. Avoid shoes that expose your toes or heels (such as open-toed shoes or sandals). These types of shoes increase your risk for injury and potential infections. Try on new footwear with the type of socks you usually wear. Do not wear new shoes for more than an hour at a time. Change your socks daily. Look and feel inside your shoes before putting them on to make sure there are no foreign objects orrough areas. Avoid tight socks. Wear natural-fiber socks (cotton, wool, or a cotton-wool blend). Wear special shoes if your health care provider recommends them. Wear shoes/boots that will protect your feet from various weather conditions (cold, moisture, etc.). Make sure your shoes fit properly. If you have neuropathy (nerve damage), you may not notice that your shoes are too tight. Perform the footwear test described below. Footwear Test Use this simple test to see if your shoes fit correctly: Stand on a piece of paper. (Make sure you are standing and not sitting, because your foot changes shape when you stand.) Trace the outline of your foot. Trace the outline of your shoe. Compare the tracings: Is the shoe too narrow? Is your foot crammed into the shoe? The shoe should be at least 1/2 inch longer than your longest toe and as wide as your foot. Proper Shoe Choices The following types of shoes are best for people with diabetes Closed toes and heels Leather uppers without a seam inside At least 1/2 inch extra space at the end of your longest toe Inside of shoe should be soft with no rough areas Outer sole should be made of stiff material Shoes should be at least as wide as your feet Tips for Foot Care in Diabetes Don't wait to treat a minor foot problem if you have diabetes. Follow your health care provider's guidelines and first aid guidelines. Report foot injuries and infections to your health care provider immediately. Check water temperature with your elbow, not your foot. Do not use a heating pad on your feet. Do not cross your legs. Do not self-treat your corns, calluses, or other foot problems. Go to your health care provider or command and control officer to treat these conditions. documented in this encounterF[facility]01-10-[facility]25 History of Present illness Narrative* Charlie Rizzo - 04/01/2024 2:25 PM EST Last saw pcp: 03/31/24 Subjective: This 53 year old female presents to clinic for diabetic foot check. Patient has the following complaints: painful callus and painful toenails. Patient presents to clinic with complaint of painful callus to b/l feet. The most painful callus isthe callus beneath the right 1st metatarsal. She uses a pummice stone and vics vaporub. She is waiting for the arrival of her diabetic shoes. Patient admits to being diabetic for multiple years now. Patient +B/T/N in feet at this time. Patient -pain in legs when walking. No other pedal complaints at this time. No change in medications or medical history since last visit. PAIN EVALUATION No data found in the last 1 encounters. Hemoglobin A1C (%) Date Value 11/17/2023 5.3 07/02/2023 5.8 02/03/2023 5.7 07/15/2022 6.2 03/22/2022 6.4 11/15/2020 7.7 02/15/2020 6.2 10/07/2019 7.0 01/21/2019 6.0 09/17/2017 5.6 07/01/2017 8.0 PCP: Lulu Luciano MD PAST MEDICAL HISTORY Diagnosis Date Aneurysm ([facility]) 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 Talha gannon MRA in 2012 Anxiety and depression Benign paroxysmal positional vertigo not an issue since 2006 Cataract Chronic cholecystitis 2007 Diabetes ([facility]) 2009 Dizziness and giddiness Elevated AST (SGOT) 10/16/2011 Esophageal reflux Excessive or frequent menstruation 06/19/2008 Family history of cardiac disorder in mother 12/23/2013 Fibromyalgia Hallux valgus (acquired) 01/12/2006 Hx-TIA (transient ischemic attack) January 2012 [place] Insomnia Mixed hyperlipidemia 03/19/2006 Resolved Morbid obesity with BMI of 40.0-44.9, adult ([facility]) 09/12/2014 Myalgia and myositis, unspecified Neuropathy Dr. Schmidt managing WILTON (obstructive sleep apnea) non compliant with CPAP Other enthesopathy of ankle and tarsus 01/12/2006 Other osteoporosis Restless leg syndrome 08/16/2015 Dr. Schmidt managing Retinal detachment 08/17/2015 Stage 3 chronic kidney disease ([facility]) 07/15/2022 Ulnar neuropathy of right upper extremity Current Outpatient Medications Medication Sig semaglutide (OZEMPIC) 2 mg/dose (8 mg/3 mL) pen injector Inject 2 mg subcutaneously one time a week. ferrous sulfate (IRON ORAL) Take 300 mg by mouth. MULTIVITAMIN ORAL Take by mouth. fluticasone (FLONASE) 50 mcg/actuation nasal spray instill 2 spray into each nostril once daily Rinse mouth after use tiZANidine HCl (ZANAFLEX) 2 mg capsule Take 2 capsules by mouth every 8 hours as needed. gabapentin (NEURONTIN) 800 mg tablet Take 1 tablet by mouth three times a day for 90 days. sertraline (ZOLOFT) 50 mg tablet Take 1 tablet by mouth once daily. cholecalciferol, Vitamin D3, (VITAMIN D3) 1,250 mcg (50,000 unit) cap capsule Take 1 capsule by mouth one time a week. meloxicam (MOBIC) 15 mg tablet Take 1 tablet by mouth once daily. With food. rosuvastatin (CRESTOR) 5 mg tablet Take 1 tablet by mouth once daily. omeprazole (PRILOSEC) 40 mg capsule Take 1 capsule by mouth once daily. Lancing Device (LANCING DEVICE WITH LANCETS) misc Check blood sugar once daily Lancets lancets Test blood sugar(s) once daily. Dx: E11.9. New onset type 2 diabetes Insulin: No No current facility-administered medications for this visit. ALLERGIES Allergen Reactions Sulfa (Sulfonamide * Rash PAST SURGICAL HISTORY Procedure Laterality Date CATARACT EXTRACTION HX Right 05/2015 COLONOSCOPY 09/15/2022 COLONOSCOPY FLX DX W/COLLJ SPEC WHEN PFRMD 08/22/2015 Colonoscopy (MAC) COLONOSCOPY SCREENING 2021 EGD 09/15/2022 EGD W/O BRSH SPEC VARICIES INJ 2021 ENDOMETRIAL BX W/WO ENDOCERVIX BX W/O DILAT SPX 06/01/2008 Irregular Menses, Menorrhagia and Thickened Lining ESOPHAGOGASTRODUODENOSCOPY TRANSORAL DIAGNOSTIC 08/22/2015 EGD (MAC) INCISE FINGER TENDON SHEATH Right 07/09/2023 right middle and ring trigger release. INCISE FINGER TENDON SHEATH Right 07/09/2023 Right middle and ring trigger finger releases LAPAROSCOPY SURG CHOLECYSTECTOMY 08/19/2007 LIGATE FALLOPIAN TUBE at last csection NEUROPLASTY &/TRANSPOSITION ULNAR NERVE ELBOW Right 11/27/2023 Right elbow ulnar nerve decompression PAST SURGICAL HISTORY OF x 4 PAST SURGICAL HISTORY OF 2022 foot surgery, multiple bilat PAST SURGICAL HISTORY OF bilateral ankle fractures PAST SURGICAL HISTORY OF 06/30/2014 right 2nd toe arthroplasty with tenotomies 3rd, 4th, and 5th toe - [facility]- Dr. Conteh PAST SURGICAL HISTORY OF Right 04/2015 retinal tear PAST SURGICAL HISTORY OF Right right knee surgery TONSILLECTOMY & ADENOIDECTOMY <AGE 11 1975 FAMILY HISTORY Problem Relation Age of Onset Heart Mother other (fibroids) Mother Heart Father Arthritis Father Colon Cancer Father diagnosed at 74yo; has colostomy Alzheimer's Disease Father Psychiatry Maternal Grandmother Suicide Cancer Paternal Grandmother Breast Cancer Paternal Aunt Brain Cancer Paternal Aunt Uterine cancer Social History Tobacco Use Smoking status: Never Smokeless tobacco: Never Vaping Use Vaping status: Never Used Substance Use Topics Alcohol use: Not Currently Drug use: No REVIEW OF SYSTEMS GENERAL: Negative for Malaise, significant weight loss, fever RESPIRATORY: Negative for cough, wheezing and shortness of breath CARDIOVASCULAR: Negative for chest pain, leg swelling and palpitations GI: Negative for abdominal discomfort, blood in stools or black stools and change in bowel habits : Negative for dysuria, frequency and incontinence MUSCULOSKELETAL: Negative for joint pain or swelling, back pain, and muscle pain. SKIN: Negative for lesions, rash, and itching. HEMATOLOGY/LYMPHOLOGY Negative for prolonged bleeding, bruising easily, and swollen nodes. ENDOCRINE: Negative for cold or heat intolerance, polyuria, polydipsia and goiter. NEURO: negative The remainder of the review of systems is noncontributory. Objective: Patient presents to clinic ambulating in diabetic shoes Constitutional: Pt is a well developed 53 year old female who is alert, oriented, cooperative and in no apparent distress. Eyes: Following during examination. No redness or drainage. Respiratory: RR normal and nonlabored. Even breathing. No evidence of distress. Psychology: Patient is engaged during conversation. Normal affect and mood. Does not appear depressed or anxious. Vasc: DP and PT pulses are palapble bilateral. CFT is less than 5 seconds bilateral. Skin temperature is warm to warm proximal to distal bilateral. There is mild edema or varicosities noted. Hair growth present. . Neuro: Protective sensation is absent to the foot and toes when tested with the 5.07 SWM bilateral.Vibratory sensation is absent at the hallux bilateral. + Significant neurological defecits. Derm: Inspection and palpation performed. Nails 3-5 b/l are painful, discolored- yellow, thick, crumbly, dystrophic and with subungal debris. Skin is of normal turgor and texture. Hyperkeratosis notedto b/l 1st metatarsal. . Wart present to right foot. Ortho: Ankle joint DF is decreased with the knee extended and decreased with knee flexed. No pain or crepitus noted. STJ, MTJ ROM are full and free of pain or crepitus. Muscle strength is 5/5 for dorsiflexors, plantarflexors, inverters, everters. Digital deformities include recurrent hallux valgus b/l. Adductovarus deformity of left foot. . Assessment: (B35.1) Onychomycosis (primary encounter diagnosis) (M79.675) Pain in toe of left foot (M79.674) Pain in toe of right foot (E11.42) Diabetic polyneuropathy associated with type 2 diabetes mellitus (HCC) (M20.42) Hammertoe of left foot\ (L84) Callus (B07.0) Plantar wart, right foot Plan: 1. Patient was seen and evaluated. 2. Patient was instructed on the continued importance of diabetic foot care along with proper diet and keeping their blood sugar under control to prevent complications. Stressed the importance of avoiding barefoot walking, wearing good shoes and inspection of feet. Instructions given both oral and written. 3. Toenails 3-5 b/l debrided in length and thickness 4. Callus of b/l 1st metatarsal was reduced with 15 blade 5. Wart of right foot reduced with 15 blade. Tca applied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 Current Outpatient Medications Medication Sig Dispense Refill ferrous sulfate (IRON ORAL) Take 300 mg by mouth. MULTIVITAMIN ORAL Take by mouth. doxycycline hyclate (VIBRAMYCIN) 100 mg capsule Take 1 capsule by mouth every 12 hours. fluticasone (FLONASE) 50 mcg/actuation nasal spray instill 2 spray into each nostril once daily Rinse mouth after use 48 mL 2 tiZANidine HCl (ZANAFLEX) 2 mg capsule Take 2 capsules by mouth every 8 hours as needed. 120 capsule 5 gabapentin (NEURONTIN) 800 mg tablet Take 1 tablet by mouth three times a day for 90 days. 90 tablet 2 sertraline (ZOLOFT) 50 mg tablet Take 1 tablet by mouth once daily. 90 tablet 3 cholecalciferol, Vitamin D3, (VITAMIN D3) 1,250 mcg (50,000 unit) cap capsule Take 1 capsule by mouth one time a week. 12 capsule 3 semaglutide (OZEMPIC) 2 mg/dose (8 mg/3 mL) pen injector Inject 2 mg subcutaneously one time a week. 4 Each 1 meloxicam (MOBIC) 15 mg tablet Take 1 tablet by mouth once daily. With food. 30 tablet 5 rosuvastatin (CRESTOR) 5 mg tablet Take 1 tablet by mouth once daily. 30 tablet 5 omeprazole (PRILOSEC) 40 mg capsule Take 1 capsule by mouth once daily. 30 capsule 5 [place]ancing Device [place]LANCING DEVICE WITH LANCETS[place] [facility] [place] blood sugar once daily 1 Each 0 Lancets lancets Test blood sugar(s) once daily. Dx: E11.9. New onset type 2 diabetes Insulin: No 100 Each 11 No current facility-administered medications for this visit. ALLERGIES: Sulfa (Sulfonamide Antibiotics) PERSONAL HISTORY: Social History Tobacco Use Smoking status: Never Smokeless tobacco: Never Vaping Use Vaping status: Never Used Substance Use Topics Alcohol use: Not Currently Drug use: No FAMILY HISTORY: FAMILY HISTORY Problem Relation Age of Onset Heart Mother other (fibroids) Mother Heart Father Arthritis Father Colon Cancer Father diagnosed at 74yo; has colostomy Alzheimer's Disease Father Psychiatry Maternal Grandmother Suicide Cancer Paternal Grandmother Breast Cancer Paternal Aunt Brain Cancer Paternal Aunt Uterine cancer REVIEW OF SYMPTOMS: GENERAL: denies fevers or chills ENDOCRINOLOGY: has not been on steroids Cardiology : denies palpitations or chest pain Respiratory: denies SOB or cough Hematology: denies history of prolonged bleeding or easy bruising or VTE Allergy: Denies history of personal or family history of allergy to anesthesia PHYSICAL EXAMINATION: VITALS: Blood pressure 108/68, weight 112.9 kg (249 lb), last menstrual period 03/11/2024. GENERAL: The patient is well nourished, well hydrated in no acute distress. , The patient is oriented to time, place, and person. NECK: Supple. No lynphadenopathy, normal thyroid, no thyromegaly. LUNGS: Clear to auscultation bilaterally. no wheezes, rhonchi or rales HEART: Regular rate and rhythm, Normal heart sounds, and No murmurs or gallops GENITALIA: Normal external genitalia, Urethral meatus normal, Bladder nontender, normal vagina and normal vaginal tone, normal cervix, normal uterus, size and consistency, normal adnexa without masses or tenderness, and perineum WNL IMPRESSION: menorrhagia with irreg cycle, adenomyosis, dysmenorrhea PLAN: The risks/benefits/alternatives and personal involved for the planned TLH/BSO with cystoscopywere reviewed with the patient. Her questions were answered to her satisfaction and she desires to proceed. Consent was signed. I reviewed with her postop instructions and expectations. Will need preop optimization w/ PCP stop ozempic 1 week preop I have reviewed and updated past medical and surgical history, medications and allergies Yanni Malone M.D. documented [facility] Note[facility] History of Present illness Narrative* Yanni Malone MD - 03/30/2024 10:55 AM EST Olga Lidia Tello is a 53 year old female who presents for problem visit for heavy menses. . HPI: 53 YOF notes she has had very heavy menses. Has had tubal in the past. Tried mirena in the past but it migrated and had to have it removed. Has had heavy menses [facility]. No feeling of prolapseor pressure. No dyspareunia. SOme cramping w/ menses and takes pamprin prn. Bleeding 7-10 days whengets them. Before that menses were controlled w/ mirena. Does not want to retry mirena, had troublegetting it out. Some hot flashes, no vaginal dryness. More night sweats than hot flashes during the day. Most nights last 3-4 months. 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 Talha gannon MRA in 2013 Anxiety and depression Benign paroxysmal positional vertigo not an issue since 2006 Cataract Chronic cholecystitis 2008 Diabetes ([facility]) 2009 Dizziness and giddiness Elevated AST (SGOT) 10/16/2011 Esophageal reflux Excessive or frequent menstruation 06/19/2008 Family history of cardiac disorder in mother 12/23/2013 Fibromyalgia Hallux valgus (acquired) 01/12/2006 Hx-TIA (transient ischemic attack) January 2012 [place] Insomnia Mixed hyperlipidemia 03/19/2006 Resolved Morbid obesity with BMI of 40.0-44.9, adult ([facility]) 09/12/2014 Myalgia and myositis, unspecified Neuropathy Dr. Schmidt managing WILTON (obstructive sleep apnea) non compliant with CPAP Other enthesopathy of ankle and tarsus 01/12/2006 Other osteoporosis Restless leg syndrome 08/16/2015 Dr. Schmidt managing Retinal detachment 08/17/2015 Stage 3 chronic kidney disease (HCC) 07/15/2022 Ulnar neuropathy of right upper extremity PAST SURGICAL HISTORY Procedure Laterality Date CATARACT EXTRACTION HX Right 05/2015 COLONOSCOPY 09/15/2022 COLONOSCOPY FLX DX W/COLLJ SPEC WHEN PFRMD 08/22/2015 Colonoscopy (MAC) COLONOSCOPY SCREENING 2021 EGD 09/15/2022 EGD W/O BRSH SPEC VARICIES INJ 2021 ENDOMETRIAL BX W/WO ENDOCERVIX BX W/O DILAT SPX 06/01/2008 Irregular Menses, Menorrhagia and Thickened Lining ESOPHAGOGASTRODUODENOSCOPY TRANSORAL DIAGNOSTIC 08/22/2015 EGD (MAC) INCISE FINGER TENDON SHEATH Right 07/09/2023 right middle and ring trigger release. INCISE FINGER TENDON SHEATH Right 07/09/2023 Right middle and ring trigger finger releases INSERTION OF IUD 07/2017 LAPAROSCOPY SURG CHOLECYSTECTOMY 08/19/2007 NEUROPLASTY &/TRANSPOSITION ULNAR NERVE ELBOW Right 11/27/2023 Right elbow ulnar nerve decompression PAST SURGICAL HISTORY OF x 4 PAST SURGICAL HISTORY OF 2022 foot surgery, multiple bilat PAST SURGICAL HISTORY OF bilateral ankle fractures PAST SURGICAL HISTORY OF 06/30/2014 right 2nd toe arthroplasty with tenotomies 3rd, 4th, and 5th toe - [facility] [place] [facility]- Dr. Conteh PAST SURGICAL HISTORY OF Right 04/2015 retinal tear PAST SURGICAL HISTORY OF Right right knee surgery TONSILLECTOMY & ADENOIDECTOMY <AGE 11 1975 FAMILY HISTORY Problem Relation Age of Onset Heart Mother other (fibroids) Mother Heart Father Arthritis Father Colon Cancer Father diagnosed at 74yo; has colostomy Alzheimer's Disease Father Psychiatry Maternal Grandmother Suicide Cancer Paternal Grandmother Breast Cancer Paternal Aunt Brain Cancer Paternal Aunt Uterine cancer Social History Tobacco Use Smoking status: Never Smokeless tobacco: Never Vaping Use Vaping status: Never Used Substance Use Topics Alcohol use: Not Currently Drug use: No Current Outpatient Medications Medication Sig ferrous sulfate (IRON ORAL) Take 300 mg by mouth. MULTIVITAMIN ORAL Take by mouth. doxycycline hyclate (VIBRAMYCIN) 100 mg capsule Take 1 capsule by mouth every 12 hours. fluticasone (FLONASE) 50 mcg/actuation nasal spray instill 2 spray into each nostril once daily Rinse mouth after use tiZANidine HCl (ZANAFLEX) 2 mg capsule Take 2 capsules by mouth every 8 hours as needed. gabapentin (NEURONTIN) 800 mg tablet Take 1 tablet by mouth three times a day for 90 days. sertraline (ZOLOFT) 50 mg tablet Take 1 tablet by mouth once daily. cholecalciferol, Vitamin D3, (VITAMIN D3) 1,250 mcg (50,000 unit) cap capsule Take 1 capsule by mouth one time a week. semaglutide (OZEMPIC) 2 mg/dose (8 mg/3 mL) pen injector Inject 2 mg subcutaneously one time a week. meloxicam (MOBIC) 15 mg tablet Take 1 tablet by mouth once daily. With food. rosuvastatin (CRESTOR) 5 mg tablet Take 1 tablet by mouth once daily. omeprazole (PRILOSEC) 40 mg capsule Take 1 capsule by mouth once daily. Lancing Device (LANCING DEVICE WITH LANCETS) misc Check blood sugar once daily Lancets lancets Test blood sugar(s) once daily. Dx: E11.9. New onset type 2 diabetes Insulin: No No current facility-administered medications for this visit. Allergies As of Date: 03/30/2024 Allergen Noted Reaction SULFA (SULFONAMIDE ANTIBIOTICS) 03/07/2024 Rash Fully Assessed 03/30/2024 REVIEW OF SYSTEMS : some CHAUNCEY and frequency, no dysuria or hematuria Allergies and current medication updated:Yes SENSITIVE EXAM: The sensitive examination was discussed with the Patient or Patient's Authorized Pharmacy Care Coordinator. As applicable, any other physician, advance practice provider, medical student, or other health professional student that will be observing or involved in the sensitive examination for educational or training purposes was discussed with the Patient or Authorized Pharmacy Care Coordinator. The Patient or Authorized Pharmacy Care Coordinator has agreed to proceed with the sensitive examination. (Sensitive examination includes inspection and/or palpation of the breasts, pelvis, prostate and anorectal regions). EXAM: BP 108/68 Wt 249 lb (112.9kg) LMP 03/11/2024 GENERAL: pleasant, female in no apparent distress PELVIC: external genitalia normal, normal Bartholin's glands, urethra, Aztec's glands, no vulvar lesions, no cervical lesions, good vaginal support, physiologic discharge present, normal appearing perineal body and perianal region BIMANUAL: uterus normal size, shape and consistency, no adnexal masses, non- tender, and mobile, retroverted ASSESSMENT AND PLAN: Assessment & Plan Menorrhagia with irregular cycle Adenomyosis Dysmenorrhea Risk benefits and alternatives to medical versus surgical versus IUD management were reviewed with the patient, her questions were answered to her satisfaction. She declines another IUD insertion dueto pain she had with removal with the last one. She does not want to be on hormones. She desires definitive therapy in the laparoscopic hysterectomy with bilateral salpingo-oophorectomy. We discussed short and long-term risks of hysterectomy for ectomy. We discussed possible need for estrogen therapy through oophorectomy. Patient desires to proceed as soon as possible because it is affecting her life when she has the heavy bleeding. We reviewed that she is likely close to menopause and could consider conservative's. She declines. Not a good endometrial ablation candidate due to adenomyosis. Surgery will be scheduled but she understand it is pending endometrial biopsy results. Ultrasound andlast Pap reviewed. Yanni Malone MD documented in this encounterFult[facility]25 Instructions* Patient Instructions* Theresa Mccoy MA - 03/29/2024 1:34 PM EST YOUR RECOVERY After your biopsy you may have: Vaginal bleeding (less than a normal menstrual period) Mild cramping Do NOT put anything in the vagina for 1 week after your endometrial biopsy. This includes: tampons douches and refraining from having sexual intercourse If you have any discomfort, you may take an over the counter pain medication (motrin, advil, ibuprofen, tylenol, etc). If this does not relieve your discomfort, contact the office. It is okay to wear a sanitary pad until the discharge and spotting stops. RISKS Although problems seldom occur with endometrial biopsies, there can be some complications. You may feel faint during and shortly after the procedure as well as have some bleeding after the procedure.There is also a risk of infection after the procedure. These complications are rare and can be easily treated. You should contact you doctor is you have any of the following: Heavy bleeding (more than your normal period) Bleeding with clots Severe abdominal pain Fever (more than 100.4F) Foul smelling vaginal discharge RESULTS We will have the results of your biopsy in 1-2 weeks. If you do not hear the results of your biopsyafter 2 weeks, please contact the office for the results. If you have any additional questions or concerns please do not hesitate to contact the office. documented in this encounterFult[facility]01-07-2025 NoteOhio[facility] History of Present illness Narrative* Irasema Blood MD - 03/29/2024 1:33 PM EST Shift Foreman offered: Patient declines. Olga Lidia is a 53 year old Female who presents today for an endometrial biopsy for abnormal uterine bleeding. test: negative UNIVERSAL PROTOCOL / SAFETY CHECKLIST Procedure to be Performed: Endometrial Biopsy Sign In: A Moment of CARE was completed. Personnel directly involved with the procedure wore the appropriate PPE (Personal Protective Equipment). Patient/Surrogate Stated/Verified: PATIENT VERIFIED(optional for EMERGENT procedures): Patient name, Date of , Relevant allergies, and The intended procedure Time Out Communication: Intended patient and procedure match the source documents. Consent documented and matches the intended procedure. Sign Out: SIGN OUT (optional for EMERGENT procedures): All specimen containers correctly labeled. All instruments, equipment, possible retained foreign bodies accounted for. Irasema Blood MD PROCEDURE: EXTERNAL GENITALIA: Normal in appearance without lesions VAGINA: Normal in appearance without lesions BIOPSY: Speculum placed into the vagina with excellent visualization of the cervix. Cervix cleaned with betadine. Anterior lip of cervix grasped with single toothed tenaculum. Uterus sounded to 10 cm. Pipelle inserted into the uterus without difficulty and endometrial biopsy obtained. Specimen labeled and sent to pathology. Hemostasis achieved. Procedure Summary: Patient tolerated procedure well. ASSESSMENT: heavy menses PLAN: Specimens labeled and sent to Pathology. Will notify patient of results in 1-2 weeks. Irasema Blood MD documented in this encounterFulton County [facility] Center12-31-2024 History of Present illness Narrative* Radha Healy [facility] - 03/22/2024 11:30 AM EST Radiology Service Progress Note PATIENT NAME: Olga Lidia Tello DATE OF SERVICE: March 22, 2024 TIME: 11:56 AM PATIENT IDENTITY VERIFICATION COMPLETED USING TWO (2) IDENTIFIERS: Name and Date of confirmedby patient verbally. FALL SCREENING: Has the patient had 2 falls in the last year or 1 fall with injury or currently using an Ambulatory Assistive Device (Walker, Cane, Wheelchair, Crutches, etc.)? No PATIENT GENDER DATA: Female. status: : No status: NO. PATIENT RELEVANT IMPLANT DATA REVIEWED: Not Applicable PATIENT PRESENTS WITH AN IMPLANTABLE OR ATTACHED OPERATING ROOM AIDE: No RADIOLOGY DEPARTMENT: Ultrasound PERIPHERAL IV DATA: Not applicable SIGNED BY: Radha Healy RDMS March 22, 2024 11:56 AM documented in this encounterFulton County [facility] Center12-31-2024 NoteOhio[facility]12-30-2024 NoteOhio[facility]12-30-2024 History of Present illness Narrative* Jing Virgen APRN.CNM - 03/21/2024 1:19 PM EST Olga Lidia Tello is a 53 year old female who presents for problem visit of heavy periods. HPI: Patient has history of heavy periods and had Mirena IUD placed. Reports that IUD became malpositioned and she had it removed in 2022. She continued to have cycles almost every month with occasional skipping. Reports cycles mostly light - often spotting at times. January and February she reports heavy, painful cycles. Cycles lasting 7-10 days and passing large clots at times. She reports bleeding through her pads and often clothes. She is here today to discuss possible hysterectomy. She is sexually active and has tubal ligation. She is not currently bleeding or in any pain. 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 Talha gannon MRA in 2012 Anxiety and depression Benign paroxysmal positional vertigo not an issue since 2007 Cataract Chronic cholecystitis 2008 Diabetes (HCC) 2010 Dizziness and giddiness Elevated AST (SGOT) 10/16/2011 Esophageal reflux Excessive or frequent menstruation 06/19/2008 Family history of cardiac disorder in mother 12/23/2013 Fibromyalgia Hallux valgus (acquired) 01/12/2006 Hx-TIA (transient ischemic attack) January 2012 [place] Insomnia Mixed hyperlipidemia 03/19/2006 Resolved Morbid obesity with BMI of 40.0-44.9, adult ([facility]) 09/12/2014 Myalgia and myositis, unspecified Neuropathy Dr. Schmidt managing WILTON (obstructive sleep apnea) non compliant with CPAP Other enthesopathy of ankle and tarsus 01/12/2006 Other osteoporosis Restless leg syndrome 08/16/2015 Dr. Schmidt managing Retinal detachment 08/17/2015 Stage 3 chronic kidney disease (HCC) 07/15/2022 Ulnar neuropathy of right upper extremity PAST SURGICAL HISTORY Procedure Laterality Date CATARACT EXTRACTION HX Right 05/2015 COLONOSCOPY 09/15/2022 COLONOSCOPY FLX DX W/COLLJ SPEC WHEN PFRMD 08/22/2015 Colonoscopy (MAC) COLONOSCOPY SCREENING 2021 EGD 09/15/2022 EGD W/O BRSH SPEC VARICIES INJ 2021 ENDOMETRIAL BX W/WO ENDOCERVIX BX W/O DILAT SPX 06/01/2008 Irregular Menses, Menorrhagia and Thickened Lining ESOPHAGOGASTRODUODENOSCOPY TRANSORAL DIAGNOSTIC 08/22/2015 EGD (MAC) INCISE FINGER TENDON SHEATH Right 07/09/2023 right middle and ring trigger release. INCISE FINGER TENDON SHEATH Right 07/09/2023 Right middle and ring trigger finger releases INSERTION OF IUD 07/2017 LAPAROSCOPY SURG CHOLECYSTECTOMY 08/19/2007 NEUROPLASTY &/TRANSPOSITION ULNAR NERVE ELBOW Right 11/27/2023 Right elbow ulnar nerve decompression PAST SURGICAL HISTORY OF x 4 PAST SURGICAL HISTORY OF 2022 foot surgery, multiple bilat PAST SURGICAL HISTORY OF bilateral ankle fractures PAST SURGICAL HISTORY OF 06/30/2014 right 2nd toe arthroplasty with tenotomies 3rd, 4th, and 5th toe - [facility]- Dr. Conteh PAST SURGICAL HISTORY OF Right 04/2015 retinal tear PAST SURGICAL HISTORY OF Right right knee surgery TONSILLECTOMY & ADENOIDECTOMY <AGE 11 1975 FAMILY HISTORY Problem Relation Age of Onset Heart Mother other (fibroids) Mother Heart Father Arthritis Father Colon Cancer Father diagnosed at 74yo; has colostomy Alzheimer's Disease Father Psychiatry Maternal Grandmother Suicide Cancer Paternal Grandmother Breast Cancer Paternal Aunt Brain Cancer Paternal Aunt Uterine cancer Social History Tobacco Use Smoking status: Never Smokeless tobacco: Never Vaping Use Vaping status: Never Used Substance Use Topics Alcohol use: Not Currently Drug use: No Current Outpatient Medications Medication Sig fluticasone (FLONASE) 50 mcg/actuation nasal spray instill 2 spray into each nostril once daily Rinse mouth after use tiZANidine HCl (ZANAFLEX) 2 mg capsule Take 2 capsules by mouth every 8 hours as needed. gabapentin (NEURONTIN) 800 mg tablet Take 1 tablet by mouth three times a day for 90 days. sertraline (ZOLOFT) 50 mg tablet Take 1 tablet by mouth once daily. cholecalciferol, Vitamin D3, (VITAMIN D3) 1,250 mcg (50,000 unit) cap capsule Take 1 capsule by mouth one time a week. semaglutide (OZEMPIC) 2 mg/dose (8 mg/3 mL) pen injector Inject 2 mg subcutaneously one time a week. meloxicam (MOBIC) 15 mg tablet Take 1 tablet by mouth once daily. With food. rosuvastatin (CRESTOR) 5 mg tablet Take 1 tablet by mouth once daily. omeprazole (PRILOSEC) 40 mg capsule Take 1 capsule by mouth once daily. L[facility]ETS[facility] Check blood sugar once daily Lancets lancets Test blood sugar(s) once daily. Dx: E11.9. New onset type 2 diabetes Insulin: No No current facility-administered medications for this visit. Allergies As of Date: 03/21/2024 Allergen Noted Reaction SULFA (SULFONAMIDE ANTIBIOTICS) 03/07/2024 Rash Fully Assessed 03/21/2024 REVIEW OF SYSTEMS Abdomen: No bloating, early satiety, indigestion, or increased flatulence. No abdominal pain, nausea, vomiting, diarrhea, or constipation. Bladder: No dysuria, gross hematuria, urinary frequency, urinary urgency, or incontinence. Breast: No breast lumps, nipple d/c, overlying skin changes, redness or skin retraction. Expanded ROS: N/A Allergies and current medication updated:Yes SENSITIVE EXAM: Sensitive exam not performed. EXAM: BP 120/76 Wt 250 lb (113.4kg) LMP 03/11/2024 GENERAL: pleasant, female in no apparent distress HEENT: Normocephalic and atraumatic NEURO: alert and oriented x3,exam grossly non-focal EXTREMITIES: normal ASSESSMENT/PLAN: 1. Menorrhagia with irregular cycle - ICD9: 626.2, ICD10: N92.1 (primary diagnosis) 2. Abnormal uterine bleeding (AUB) - ICD9: 626.9, ICD10: N93.9 - US FEMALE PELVIS TRANSVAG - COMPLETE BLOOD COUNT - ESTRADIOL-17B BLD - FOLLICLE STIMULATING HORMONE - ENDOMETRIAL BIOPSY - Need to determine if patient is menopausal or perimenopausal - Will follow up after results return for plan of care - Patient agrees with dagoberto Virgen APRN.CNM documented in this encounterFulton County [facility] Center12-23-2024 Telephone encounter Note * Telephone Encounter - Lulu Luciano MD - 03/14/2024 5:01 PM EST The following approved medication requests have been transmitted electronically. Requested Prescriptions Pending Prescriptions Disp Refills fluticasone (FLONASE) 50 mcg/actuation nasal spray [Pharmacy Med Name: FLUTICASONE PROP 50 MCG SPRAY] 48 mL 2 Sig: instill 2 spray into each nostril once daily Rinse mouth after use Lulu Luciano MD [facility]12-23-2024 Miscellaneous Notes* Telephone Encounter - Lulu Luciano MD - 03/14/2024 5:01 PM EST The following approved medication requests have been transmitted electronically. Requested Prescriptions Pending Prescriptions Disp Refills fluticasone (FLONASE) 50 mcg/actuation nasal spray [Pharmacy Med Name: FLUTICASONE PROP 50 MCG SPRAY] 48 mL 2 Sig: instill 2 spray into each nostril once daily Rinse mouth after use Lulu Luciano MD * Telephone Encounter - Sheree Toscano MA - 03/14/2024 3:46 PM EST Patient has been identified by name and date of : yes Patient phones for refill(s): Requested Prescriptions Pending Prescriptions Disp Refills fluticasone (FLONASE) 50 mcg/actuation nasal spray [Pharmacy Med Name: FLUTICASONE PROP 50 MCG SPRAY] 48 mL 2 Sig: instill 2 spray into each nostril once daily Rinse mouth after use Date of last office visit in primary care: 02/09/2024 Date of next office visit in primary care: 05/27/2024 Please advise. Thank you. Sheree Toscano MA. documented in this encounterFulton County Health Center12-23-2024 Telephone encounter Note * Telephone Encounter - Sheree Toscano MA - 03/14/2024 3:46 PM EST Patient has been identified by name and date of : yes Patient phones for refill(s): Requested Prescriptions Pending Prescriptions Disp Refills fluticasone (FLONASE) 50 mcg/actuation nasal spray [Pharmacy Med Name: FLUTICASONE PROP 50 MCG SPRAY] 48 mL 2 Sig: instill 2 spray into each nostril once daily Rinse mouth after use Date of last office visit in primary care: 02/09/2024 Date of next office visit in primary care: 05/27/2024 Please advise. Thank you. Sheree Toscano MA. [facility]12-16-[facility] Telephone encounter Note* Telephone Encounter - Kanika Malone LPN - 03/07/2024 7:48 AM EST Allergy list has been updated. [facility]12-16-2024 Miscellaneous Notes* Telephone Encounter - Kanika Malone LPN - 03/07/2024 7:48 AM EST Allergy list has been updated. documented in this encounterFulton County Health Center12-05-2024 Evaluation note* Diagnosis Onset Date Resolution Status Admit Date Acute sinusitis resolved February 25, 2024 10:37am Adhesion of omentum acute Janua ry 2024 7:45am Adenomyosis resolved April 15, 2024 7:45am Dysmenorrhea resolved March 7:45am Menorrhagia with irregular cycle resolved April 15 7:45am [facility] Work Phone: 1(706) 826-279012-05-2024 Telephone encounter Note* Telephone Encounter - Kristine Gama APRN.CNP - 02/25/2024 10:01 AM EST Addressed at appointment on 02/08 Kristine Gama APRN.MARIVEL [facility] Work Phone: 1(384) 105-523412-05-2024 Miscellaneous Notes* Telephone Encounter - Kristine Gama APRN.CNP - 02/25/2024 10:01 AM EST Addressed at appointment on 02/08 Kristine Gama APRN.MARIVEL documented in this encounterFulton County Health Center11-19-2024 Instructions* Patient Instructions* Lulu Luciano MD - 02/09/2024 7:07 PM EST - Resume physical activity gradually, aiming for at least 120 minutes of exercise per week. Consider gentle stretching exercises or yoga to start. - Consider physical therapy to address leg issues and receive specific exercises. - Incorporate protein into every meal, especially breakfast, to help manage hunger and support weight loss. - Limit caffeine intake, especially after 3:00 PM, to improve sleep quality. - Begin Kegel exercises to help with stress incontinence; instructions provided. - Use Flonase nasal spray as directed to help with ear pressure and discomfort. - Continue taking prescribed medications: Crestor, vitamin D, tizanidine, sertraline, and gabapentin. - Follow up with your healthcare provider as needed. documented in this encounterFulton County Health Center11-19-2024 NoteOhiohealth [facility]11-19-2024 History of Present illness Narrative* Lulu Luciano MD - 02/09/2024 6:33 PM EST Images from the original note were not included. This note was created using [employer] STUDI[employer]ter. Subjective Olga Lidia Tello is a 53 year old female. Patient presents with: Recheck: 3 months SUBJECTIVE: Olga Lidia Tello is a 53 year old year old lady here today for 3 month follow up appointment for review of medical conditions. Olga Lidia Tello is a 53-year-old female with a history of obesity, presenting for weight management. Olga Lidia reports a weight plateau at 246 lbs after initially losing weight from 280 lbs in June of last year. She attributes the plateau to decreased exercise following multiple surgeries on her hand and elbow, as well as concerns about Charcot foot. She was previously engaged in cardio and strength training with a personal lines advisor but discontinued due to a mismatch with a new life trainer and subsequent leg issues. She notes that her leg sticks out after exercise, though it is not painful and does not hinder ambulation. She expresses frustration with her current weight and body image, noting flabbiness in her arms andlegs. She reports excessive fatigue and low energy levels, despite consuming protein shakes and energy drinks (Celsius). She has difficulty falling asleep and frequently wakes up to use the bathroom, attributing this to stress incontinence, which has worsened over time. She denies working with a urogynecologist or urologist for this issue. Her current diet includes overnight oats in the morning, Factor high-protein meals, and snacks suchas popcorn and fruit. She drinks protein shakes when not hungry but thirsty. She reports low iron levels and takes an iron supplement daily. She is also on Crestor for hypercholesterolemia and expresses concerns about high blood pressure and cholesterol. 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 She takes multiple vitamins and questions why she is still getting sick. She denies using Flonase. She also reports ongoing pain from a cortisone injection in her neck and a recent trigger finger surgery. She is waiting for further treatment options from her healthcare providers. 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 Talha gannon MRA in 2013 Anxiety and depression Benign paroxysmal positional vertigo not an issue since 2006 Cataract Chronic cholecystitis 2008 Diabetes ([facility]) 2009 Dizziness and giddiness Elevated AST (SGOT) 10/16/2011 Esophageal reflux Excessive or frequent menstruation 06/19/2008 Family history of cardiac disorder in mother 12/23/2013 Fibromyalgia Hallux valgus (acquired) 01/12/2006 Hx-TIA (transient ischemic attack) January 2012 [place] Insomnia Mixed hyperlipidemia 03/19/2006 Resolved Morbid obesity with BMI of 40.0-44.9, adult ([facility]) 09/12/2014 Myalgia and myositis, unspecified Neuropathy Dr. Schmidt managing WILTON (obstructive sleep apnea) non compliant with CPAP Other enthesopathy of ankle and tarsus 01/12/2006 Other osteoporosis Restless leg syndrome 08/16/2015 Dr. Schmidt managing Retinal detachment 08/17/2015 Stage 3 chronic kidney disease ([facility]) 07/15/2022 Ulnar neuropathy of right upper extremity Current Outpatient Medications Medication Sig amoxicillin-clavulanate potassium (AUGMENTIN) 875-125 mg per tablet Take 1 tablet by mouth two times a day for 7 days. Take with food triamcinolone acetonide (KENALOG) 0.1 % cream Apply 1 application to affected area three times a day for 7 days. Apply to affected area. Reddened area of face. Avoid eye area semaglutide (OZEMPIC) 2 mg/dose (8 mg/3 mL) pen injector Inject 2 mg subcutaneously one time a week. tiZANidine (ZANAFLEX) 4 mg tablet Take 1 tablet by mouth every 8 hours as needed. sertraline (ZOLOFT) 50 mg tablet Take 1 tablet by mouth once daily. gabapentin (NEURONTIN) 800 mg tablet Take 1 tablet by mouth three times a day for 90 days. meloxicam (MOBIC) 15 mg tablet Take 1 tablet by mouth once daily. With food. rosuvastatin (CRESTOR) 5 mg tablet Take 1 tablet by mouth once daily. omeprazole (PRILOSEC) 40 mg capsule Take 1 capsule by mouth once daily. cholecalciferol, Vitamin D3, (VITAMIN D3) 1,250 mcg (50,000 unit) cap capsule Take 1 capsule by mouth one time a week. Lancing Device (LANCING DEVICE WITH LANCETS[place] [facility] [place] blood sugar once daily Lancets lancets Test blood sugar(s) once daily. Dx: E11.9. New onset type 2 diabetes Insulin: No No current facility-administered medications for this visit. Review of Systems Objective BP 112/68 Pulse 68 Resp 14 Wt 112 kg (246 lb 14.6 oz) LMP 11/10/2023 (Approximate) BMI 35.43 kg/m Last 5 Encounter Wt Readings: Date: Wt: 02/09/2024 112 kg (246 lb 14.6 oz) 02/05/2024 112.9 kg (248 lb 14.4 oz) 12/08/2023 110.7 kg (244 lb) 11/20/2023 110.8 kg (244 lb 3.2 oz) 11/17/2023 109 kg (240 lb 4.8 oz) No waist measurement recorded Estimated body mass index is 35.43 kg/m as calculated from the following: Height as of 01/07/24: 177.8 cm (5' 10). Weight as of this encounter: 112 kg (246 lb 14.6 oz). Last 5 Encounter BP Readings: Date: BP: 02/09/2024 112/68 02/05/2024 110/72 12/08/2023 107/62 11/27/2023 105/58 11/20/2023 130/76 Physical Exam Constitutional: Appearance: Normal appearance. She is obese. HENT: Head: Normocephalic. Right Ear: Tympanic membrane and ear canal normal. Left Ear: Tympanic membrane and ear canal normal. Eyes: Conjunctiva/sclera: Conjunctivae normal. Neck: Vascular: No carotid bruit. Cardiovascular: Rate and Rhythm: Normal rate and regular rhythm. Heart sounds: Normal heart sounds. Pulmonary: Effort: Pulmonary effort is normal. Breath sounds: Normal breath sounds. Musculoskeletal: Right lower leg: No edema. Left lower leg: No edema. Skin: General: Skin is warm and dry. Neurological: General: No focal deficit present. Mental Status: She is alert and oriented to person, place, and time. Psychiatric: Attention and Perception: Attention and perception normal. Mood and Affect: Mood and affect normal. Speech: Speech normal. Behavior: Behavior normal. Thought Content: Thought content normal. Judgment: Judgment normal. Latest Ref Rng 07/02/2023 11/17/2023 WBC 3.70 - 11.00 k/uL 7.70 RBC 3.90 - 5.20 m/uL 5.43 (H) Hemoglobin 11.5 - 15.5 g/dL 15.7 (H) Hematocrit 36.0 - 46.0 % 49.0 (H) MCV 80.0 - 100.0 fL 90.2 MCH 26.0 - 34.0 pg 28.9 MCHC 30.5 - 36.0 g/dL 32.0 RDW-CV 11.5 - 15.0 % 14.3 Platelet Count 150 - 400 k/uL 342 MPV 9.0 - 12.7 fL 9.7 Neut% % 54.0 Abs Neut (ANC) 1.45 - 7.50 k/uL 4.16 Lymph% % 37.0 Abs Lymph 1.00 - 4.00 k/uL 2.85 [place]% % 5.8 Abs [place] <0.87 k/uL 0.45 Eosin% % 2.1 Abs Eosin <0.46 k/uL 0.16 Baso% % 0.8 Abs Baso <0.11 k/uL 0.06 Immature Gran % % 0.3 IMMATURE GRANS (ABS) <0.10 k/uL <0.03 NRBC /100 WBC 0.0 Absolute nRBC <0.01 k/uL <0.01 DTYPE Auto Protein, Total 6.3 - 8.0 g/dL 7.1 Albumin 3.9 - 4.9 g/dL 4.4 Calcium 8.5 - 10.2 mg/dL 10.5 (H) Bilirubin, Total 0.2 - 1.3 mg/dL 0.4 Alkaline Phosphatase 34 - 123 U/L 84 AST 13 - 35 U/L 21 ALT 7 - 38 U/L 7 Glucose 74 - 99 mg/dL 97 BUN 7 - 21 mg/dL 13 Creatinine 0.58 - 0.96 mg/dL 0.83 Sodium 136 - 144 mmol/L 141 Potassium 3.7 - 5.1 mmol/L 4.5 Chloride 98 - 107 mmol/L 103 CO2 22 - 30 mmol/L 28 Anion Gap 8 - 15 mmol/L 10 eGFR >=60 mL/min/1.73m 84 Iron 41 - 186 ug/dL 63 TIBC 232 - 386 ug/dL 392 (H) Transferrin Saturation 15.0 - 57.0 % 16.1 Hemoglobin A1C 4.3 - 5.6 % 5.8 (H) 5.3 Estimated Average Glucose mg/dL 120 105 TSH 0.270 - 4.200 mIU/L 0.667 Vitamin D 25 Hydroxy 31.0 - 80.0 ng/mL 73.4 Magnesium 1.7 - 2.3 mg/dL 2.0 Vitamin B12 232 - 1,245 pg/mL 905 Ferritin 14.7 - 205.1 ng/mL 29.3 Legend: (H) High Assessment and Plan # Type 2 diabetes mellitus without complication, without long-term current use of insulin (HCC) (E11.9) - Managed with Ozempic. - Discussed dietary modifications, emphasizing the importance of protein intake with each meal to stabilize insulin levels and prevent hunger. - Advised against consuming energy drinks, particularly those high in caffeine, as they can suppress appetite and interfere with sleep. - Recommended breaking fast with protein-rich foods and avoiding naked carbs to prevent insulin spikes. - Referral to dietitian for further nutritional guidance. # Obesity (BMI 30-39.9) (E66.9) - Current weight plateau at 240-250 lbs. - Discussed the importance of regular physical activity, recommending at least 120 minutes of exercise per week, including gentle stretching exercises and yoga. - Advised gradual reintroduction of exercise, starting with low-impact activities and gradually increasing intensity. - Referral to physical therapy for evaluation and development of a personalized exercise plan. # Neuropathy (G62.9) - Managed with gabapentin 300 mg TID. - Refilled gabapentin prescription for 90 tablets with refills. # Depression, recurrent (HCC) (F33.9) - Managed with sertraline. - Refilled sertraline prescription. # Chronic bilateral low back pain without sciatica (M54.50) - Managed with tizanidine. - Refilled tizanidine prescription. # Vitamin D deficiency (E55.9) - Continue current vitamin D supplementation. # Hypomagnesemia (E83.42) - Continue current magnesium supplementation. # Hypercalcemia (E83.52) - Monitor calcium levels; no changes to current management. # Stress incontinence, female (N39.3) - Provided education on Kegel exercises to strengthen pelvic floor muscles. - Printed educational material on Kegel exercises. - Discussed potential referral to urogynecologist if symptoms do not improve with exercises. # Mixed hyperlipidemia (E78.2) - Managed with Crestor. - Continue current medication regimen. Lulu Luciano MD documented in this encounterFult[facility]11-18-2024 Telephone encounter Note * Telephone Encounter - Regina Joya RN - 02/08/2024 8:55 AM EST DESTIN: 11/05/2023 w/Serenity Mena CNP PLAN: Continue medication management through the patient's current prescribing physician Ordered cervical MRI Interventional procedure options discussed. None at this time Continue regular home exercise program. Once MRI is completed Dr. Montejo will review for further recommendations Procedure(s): 01/07/2024: C6-7 iCESI [facility]11-18-2024 Miscellaneous Notes* Telephone Encounter - Regina Joya RN - 02/08/2024 8:55 AM EST DESTIN: 11/05/2023 w/Serenity Mena CNP PLAN: Continue medication management through the patient's current prescribing physician Ordered cervical MRI Interventional procedure options discussed. None at this time Continue regular home exercise program. Once MRI is completed Dr. Montejo will review for further recommendations Procedure(s): 01/07/2024: C6-7 iCESI documented in this encounterFulton County [facility] Center11-15-2024 [facility]Ohio[facility] History of Present illness Narrative* Sudhir Talbot, MARBLE WORKER.REHAB NURSE - 02/05/2024 11:52 AM EST SUBJECTIVE Olga Lidia Tello is a 53 year old female who presents with 2 days of symptoms that are worsening. Seen at [facility], treated with azithromycin for sinus infection. States initially felt improved but had recurrence of ear pain 1-2 days ago. States now with ear pain, right side. Was present before but now worse. Symptoms include: Fever (>=100.4F): No or Chills: No Cough: No Shortness of breath: No or Difficulty breathing: No Fatigue: Yes Muscle aches: No Headache: Yes right frontal New loss of smell or taste: No Sore throat: No Nasal congestion: No or Rhinorrhea: No Nausea: No or Vomiting: No Diarrhea: No OTC meds/remedies that patient has tried: acetaminophen. Exposures: Sick contacts? No Family or close contacts with confirmed/probable COVID-19 in last 14 days? No She reports that she has never smoked. She has never used smokeless tobacco. OBJECTIVE PHYSICAL EXAM: BP 110/72 Pulse 77 Temp 36.9 C (98.5 F) Resp 16 Wt 112.9 kg (248 lb 14.4 oz) LMP 11/10/2023 (Approximate) SpO2 97% BMI 35.71 kg/m General appearance: tired/ill appearing, alert, cooperative, pleasant, in no acute distress Head: Normocephalic Eyes: conjunctiva/corneas normal Ears: R TM - erythematous streaking, jerry colored effusion present, L TM - erythematous streaking,jerry colored effusion present Nose: clear Oropharynx: moist without lesions Neck: supple and small, benign anterior cervical nodes bilaterally Heart: regular rate and rhythm, without murmur Lungs: clear to auscultation, without rales or wheeze, good air exchange ASSESSMENT/PLAN (H65.03) Non-recurrent acute serous otitis media of both ears (primary encounter diagnosis) ASSESSMENT/PLAN: 1. Non-recurrent acute serous otitis media of both ears - ICD9: 381.01, ICD10: H65.03 - Will begin treatment with as per antibiotic as written, see orders - Supportive care with plenty of fluids, rest, and analgesia prn. - Follow up if symptoms persist or worsen. - AMOXICILLIN 875 MG-POTASSIUM CLAVULANATE 125 MG TABLET Sudhir Talbot APRN.REHAB NURSE Medical Decision Making: Problems: Low: Acute, uncomplicated illness or injury Risk: Moderate: Drug management Medical Decision Making Level: 3 - Low documented in this encounterFulton County [facility] Center11-11-2024 History of Present illness Narrative* Brendan Flor MD - 02/01/2024 4:25 PM EST Brendan Flor MD Department of Orthopaedics Orthopaedics [address] [place] [address] Dept: [phone] Dept February 01, 2024 CHIEF COMPLAINT: Post op elbow. HPI AMB ROOMING INTAKE FLOWSHEET DATA Pain Pain Level: 8 Pain Location: Arm-Right (hand to elbow) Description: Sharp Duration Amount of Time: 2 Duration Units: Weeks Frequency: Continuous Intervention/Comfort measure: Medication ASSESSMENT: G56.21 Ulnar neuropathy of right upper extremity (primary encounter diagnosis) SUMMARY/PLAN: Patient is 2 months out from her surgery and she is doing well. She is still dealing with some numbness and tingling in the arm but she also just recently had a cervical injection in addition. She isnot having any trouble specifically at the surgical site at the elbow. She will continue activitiesas tolerated and follow-up on an as-needed basis. Exam: Healed incision. Full range of motion at the elbow. Gross neurovascular exams intact. Supporting Information Below: Medications: Current Outpatient Medications Medication Sig gabapentin (NEURONTIN) 800 mg tablet Take 1 tablet by mouth three times a day for 90 days. sertraline (ZOLOFT) 50 mg tablet Take 1 tablet by mouth once daily. tiZANidine (ZANAFLEX) 4 mg tablet Take 1 tablet by mouth every 8 hours as needed. cholecalciferol, Vitamin D3, (VITAMIN D3) 1,250 mcg (50,000 unit) cap capsule Take 1 capsule by mouth one time a week. fluticasone (FLONASE) 50 mcg/actuation nasal spray Use 2 Sprays in each nostril once daily. Rinse mouth after use. semaglutide (OZEMPIC) 2 mg/dose (8 mg/3 mL) pen injector Inject 2 mg subcutaneously one time a week. meloxicam (MOBIC) 15 mg tablet Take 1 tablet by mouth once daily. With food. rosuvastatin (CRESTOR) 5 mg tablet Take 1 tablet by mouth once daily. omeprazole (PRILOSEC) 40 mg capsule Take 1 capsule by mouth once daily. Lancing Device ([place]ANCING [place] WITH L[place] [facility] [place] blood sugar once daily Lancets lancets Test blood sugar(s) once daily. Dx: E11.9. New onset type 2 diabetes Insulin: No No current facility-administered medications for this visit. Allergies: Patient has no known allergies. Brendan Flor MD documented in this encounterFulton County [facility] Center11-06-2024 History of Present illness Narrative* Brendan Flor MD - 01/27/2024 4:04 PM EST Left without being seen. Brendan Flor MD documented in this encounterFulton County [facility] Center11-04-2024 Telephone encounter Note * Telephone Encounter - Kanika Malone LPN - 01/25/2024 3:12 PM EST Prescription Refill Information The patient has been identified by name and date of : Yes Caregiver verified no other encounters exist for this prescription request: Yes Caregiver confirmed with patient/requestor that no other refills are due, in the near future, with this provider at this time: Yes The last office visit in the department: 11/17/23 Does the patient have a future office visit with this provider/department: Yes 02/09/24 Requested Prescriptions Pending Prescriptions Disp Refills semaglutide (OZEMPIC) 2 mg/dose (8 mg/3 mL) pen injector 4 Each 1 Sig: Inject 2 mg subcutaneously one time a week. tiZANidine (ZANAFLEX) 4 mg tablet 60 tablet 0 Sig: Take 1 tablet by mouth every 8 hours as needed. Kanika Malone LPN January 25, 2024 3:15 PM [facility]11-04-2024 Miscellaneous Notes* Telephone Encounter - Kanika Malone LPN - 01/25/2024 3:12 PM EST Prescription Refill Information The patient has been identified by name and date of : Yes Caregiver verified no other encounters exist for this prescription request: Yes Caregiver confirmed with patient/requestor that no other refills are due, in the near future, with this provider at this time: Yes The last office visit in the department: 11/17/23 Does the patient have a future office visit with this provider/department: Yes 02/09/24 Requested Prescriptions Pending Prescriptions Disp Refills semaglutide (OZEMPIC) 2 mg/dose (8 mg/3 mL) pen injector 4 Each 1 Sig: Inject 2 mg subcutaneously one time a week. tiZANidine (ZANAFLEX) 4 mg tablet 60 tablet 0 Sig: Take 1 tablet by mouth every 8 hours as needed. Kanika Malone LPN January 25, 2024 3:15 PM documented in this encounterFulton County [facility] Center10-22-2024 Telephone encounter Note * Telephone Encounter - Trish Barnett LPN - 01/12/2024 4:34 PM EDT Called patient to inform her that we received letter from insurance stating that she maybe have received Mupirocin ointment that was part of recall. Patient was advise to discard medication if she still has it. Patient verbalized understanding. Trish Barnett LPN [facility]10-22-2024 Miscellaneous Notes* Telephone Encounter - Trish Barnett LPN - 01/12/2024 4:34 PM EDT Called patient to inform her that we received letter from insurance stating that she maybe have received Mupirocin ointment that was part of recall. Patient was advise to discard medication if she still has it. Patient verbalized understanding. Trish Barnett LPN documented in this encounterFulton County Health Center10-22-2024 History of Present illness Narrative* Charlie Rizzo - 01/12/2024 10:25 AM EDT Subjective: This 53 year old female presents to clinic for diabetic foot check. Patient has the following complaints: wound of left 5th toe. States her left 5th toe rubs in her shoes and at times causes her pain and even sores. She is concerned about sores currently. Here for diabetic foot exam. . Patient admits to being diabetic for multiple years now. Patient +B/T/N in feet at this time. Patient -pain in legs when walking. No other pedal complaints at this time. No change in medications or medical history since last visit. PAIN EVALUATION 01/12/2024 0958 Pain Level: 6 Pain Location: Ankle-Right Description: Sharp Duration Units: Years Frequency: Continuous Intervention/Comfort measure: Relaxation;Reposition;Medication Hemoglobin A1C (%) Date Value 11/17/2023 5.3 07/02/2023 5.8 02/03/2023 5.7 07/15/2022 6.2 03/22/2022 6.4 11/15/2020 7.7 02/15/2020 6.2 10/07/2019 7.0 01/21/2019 6.0 09/17/2017 5.6 07/01/2017 8.0 PCP: Lulu Luciano MD PAST MEDICAL HISTORY Diagnosis Date Aneurysm ([facility]) 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 Talha gannon MRA in 2012 Anxiety and depression Benign paroxysmal positional vertigo not an issue since 2006 Cataract Chronic cholecystitis 2008 Diabetes ([facility]) 2010 Dizziness and giddiness Elevated AST (SGOT) 10/16/2011 Esophageal reflux Excessive or frequent menstruation 06/19/2008 Family history of cardiac disorder in mother 12/23/2013 Fibromyalgia Hallux valgus (acquired) 01/12/2006 Hx-TIA (transient ischemic attack) January 2012 [place] Insomnia Mixed hyperlipidemia 03/19/2006 Resolved Morbid obesity with BMI of 40.0-44.9, adult ([facility]) 09/12/2014 Myalgia and myositis, unspecified Neuropathy Dr. Schmidt managing WILTON (obstructive sleep apnea) non compliant with CPAP Other enthesopathy of ankle and tarsus 01/12/2006 Other osteoporosis Restless leg syndrome 08/16/2015 Dr. Schmidt managing Retinal detachment 08/17/2015 Stage 3 chronic kidney disease ([facility]) 07/15/2022 Ulnar neuropathy of right upper extremity Current Outpatient Medications Medication Sig sertraline (ZOLOFT) 50 mg tablet Take 1 tablet by mouth once daily. gabapentin (NEURONTIN) 800 mg tablet Take 1 tablet by mouth three times a day for 90 days. meloxicam (MOBIC) 15 mg tablet Take 1 tablet by mouth once daily. With food. semaglutide (OZEMPIC) 2 mg/dose (8 mg/3 mL) pen injector Inject 2 mg subcutaneously one time a week. tiZANidine (ZANAFLEX) 4 mg tablet Take 1 tablet by mouth every 8 hours as needed. rosuvastatin (CRESTOR) 5 mg tablet Take 1 tablet by mouth once daily. omeprazole (PRILOSEC) 40 mg capsule Take 1 capsule by mouth once daily. cholecalciferol, Vitamin D3, (VITAMIN D3) 1,250 mcg (50,000 unit) cap capsule Take 1 capsule by mouth one time a week. Lancing Device (LANCING DEVICE WITH LANCETS) misc Check blood sugar once daily Lancets lancets Test blood sugar(s) once daily. Dx: E11.9. New onset type 2 diabetes Insulin: No No current facility-administered medications for this visit. ALLERGIES No Known Allergies PAST SURGICAL HISTORY Procedure Laterality Date CATARACT EXTRACTION HX Right 05/2015 COLONOSCOPY 09/15/2022 COLONOSCOPY FLX DX W/COLLJ SPEC WHEN PFRMD 08/22/2015 Colonoscopy (MAC) COLONOSCOPY SCREENING 2021 EGD 09/15/2022 EGD W/O [facility] SPEC VARICIES INJ 2021 ENDOMETRIAL BX W/WO ENDOCERVIX BX W/O DILAT SPX 06/01/2008 Irregular Menses, Menorrhagia and Thickened Lining ESOPHAGOGASTRODUODENOSCOPY TRANSORAL DIAGNOSTIC 08/22/2015 EGD (MAC) INCISE FINGER TENDON SHEATH Right 07/09/2023 right middle and ring trigger release. INCISE FINGER TENDON SHEATH Right 07/09/2023 Right middle and ring trigger finger releases INSERTION OF IUD 07/2017 LAPAROSCOPY SURG CHOLECYSTECTOMY 08/19/2007 NEUROPLASTY &/TRANSPOSITION ULNAR NERVE ELBOW Right 11/27/2023 Right elbow ulnar nerve decompression PAST SURGICAL HISTORY OF x 4 PAST SURGICAL HISTORY OF 2022 foot surgery, multiple bilat PAST SURGICAL HISTORY OF bilateral ankle fractures PAST SURGICAL HISTORY OF 06/30/2014 right 2nd toe arthroplasty with tenotomies 3rd, 4th, and 5th toe - [facility]- Dr. Conteh PAST SURGICAL HISTORY OF Right 04/2015 retinal tear PAST SURGICAL HISTORY OF Right right knee surgery TONSILLECTOMY & ADENOIDECTOMY <AGE 11 1975 FAMILY HISTORY Problem Relation Age of Onset Heart Mother other (fibroids) Mother Heart Father Arthritis Father Colon Cancer Father diagnosed at 74yo; has colostomy Alzheimer's Disease Father Psychiatry Maternal Grandmother Suicide Cancer Paternal Grandmother Breast Cancer Paternal Aunt Brain Cancer Paternal Aunt Uterine cancer Social History Tobacco Use Smoking status: Never Smokeless tobacco: Never Vaping Use Vaping status: Never Used Substance Use Topics Alcohol use: Not Currently Drug use: No REVIEW OF SYSTEMS GENERAL: Negative for Malaise, significant weight loss, fever RESPIRATORY: Negative for cough, wheezing and shortness of breath CARDIOVASCULAR: Negative for chest pain, leg swelling and palpitations GI: Negative for abdominal discomfort, blood in stools or black stools and change in bowel habits : Negative for dysuria, frequency and incontinence MUSCULOSKELETAL: Negative for joint pain or swelling, back pain, and muscle pain. SKIN: Negative for lesions, rash, and itching. HEMATOLOGY/LYMPHOLOGY Negative for prolonged bleeding, bruising easily, and swollen nodes. ENDOCRINE: Negative for cold or heat intolerance, polyuria, polydipsia and goiter. NEURO: negative The remainder of the review of systems is noncontributory. Objective: Patient presents to clinic ambulating in diabetic shoe Constitutional: Pt is a well developed 53 year old female who is alert, oriented, cooperative and in no apparent distress. Eyes: Following during examination. No redness or drainage. Respiratory: RR normal and nonlabored. Even breathing. No evidence of distress. Psychology: Patient is engaged during conversation. Normal affect and mood. Does not appear depressed or anxious. Vasc: DP and PT pulses are palpable bilateral. CFT is less than 5 seconds bilateral. Skin temperature is warm to warm proximal to distal bilateral. There is mild edema or varicosities noted. Hair growth present. Neuro: Protective sensation is absent to the foot and toes when tested with the 5.07 SWM bilateral.Vibratory sensation is absent at the hallux bilateral. + Significant neurological defecits. Derm: Inspection and palpation performed. Nails 3-5 b/l are painful, discolored- yellow, thick, crumbly, dystrophic and with subungal debris. Skin is of normal turgor and texture. Hyperkeratosis notedto right 1st metatarsal, right 3rd toe b/l distal tuft. No open sores noted to left 5th toe. NO ulcerations, scars, verruca or other lesions noted. Ortho: Ankle joint DF is decresaed with the knee extended and decresaed with knee flexed. No pain or crepitus noted. STJ, MTJ ROM are full and free of pain or crepitus. Muscle strength is 5/5 for dorsiflexors, plantarflexors, inverters, everters. Digital deformities include large bunion b/l. Hammertoes of b/l feet, most prominent of left 5th toe. Assessment: (L84) Callus (primary encounter diagnosis) (B35.1) Onychomycosis (M79.675) Pain in toe of left foot (M79.674) Pain in toe of right foot (E11.42) Diabetic polyneuropathy associated with type 2 diabetes mellitus (HCC) (M20.42) Hammertoe of left foot (M20.41) Hammertoe of right foot Plan: 1. Patient was seen and evaluated. 2. Patient was instructed on the continued importance of diabetic foot care along with proper diet and keeping their blood sugar under control to prevent complications. Stressed the importance of avoiding barefoot walking, wearing good shoes and inspection of feet daily Instructions given both oral and written. 3. Callus to right 1st metatarsal was reduced with 15 blade and dremmel. Small bleed to right firstmetatarsal. Band aide applied. Continue with diabetic shoes. 4. Callus reduced to b/l 3rd toe with dremmel. 5. Discussed left 5th toe. No open sores noted. Likely irritated with rubbing in narrow shoes. Recommend continued diabetic shoes and will provide her with gel toe cap. 6 . Discussed surgial vs conservative options for hammertoe and bunion. 7. Toenails 3-5 b/l debrided in length and thickness. 8. Patient to follow-up in 2-3 months 9. Due to bunion, history of callus, history of hammertoe in presence of diabetic neuropathy, will order diabetic shoes IOANA Wren DPM * Trish Barnett LPN - 01/12/2024 9:56 AM EDT AMB ROOMING INTAKE FLOWSHEET DATA Pain Pain Level: 6 Pain Location: Ankle-Right Description: Sharp Duration Units: Years Frequency: Continuous Intervention/Comfort measure: Relaxation, Reposition, Medication Patient presents with: Left Foot - Established Patient, Diabetic Foot Care, Foot Deformity, Callous Right Foot - Established Patient, Diabetic Foot Care, Foot Deformity, Diabetic Foot Ulcer Trish Barnett LPN documented in this encounterFulton [facility] Center10-17-2024 History of Present illness Narrative* Vernell Canela - 01/07/2024 11:47 AM EDT Olga Lidia Tello is identified through a medication adherence outreach initiative based on pharmacy claims data from [employer] (insurer) for Statin medication(s). Patient is reviewed 01/07/24 due to medication adherence concerns with the following medications (name, strength, sig): rosuvastatin 5mg, take 1 tablet daily. Per data/report, last fill date and days supply: due 12/17/23 Per reconcile dispense, last fill date and days supply: filled 11/17/23 for 30 days Per call to pharmacy, last picked up date and days supply: n/a Outcome of review/outreach: (choose outcome source and status) Sent [employer] message, (pt having surgery today) Vernell Canela documented in this encounterFulton County Health Center10-16-2024 Telephone encounter Note * Telephone Encounter - Trish Barnett LPN - 01/06/2024 8:29 AM EDT Patient was in office for an appointment with ortho. Patient left with out being seen. Trish Barnett LPN [facility] Work Phone: 1(268) 425-448010-16-2024 Miscellaneous Notes* Telephone Encounter - Trish Barnett LPN - 01/06/2024 8:29 AM EDT Patient was in office for an appointment with ortho. Patient left with out being seen. Trish Barnett LPN documented in this encounterFulton County Health Center09-30-2024 History of Present illness Narrative* Brendan Flor MD - 12/21/2023 12:58 PM EDT Brendan Flor MD Department of Orthopaedics Orthopaedics [address] [place] [address] Dept: [phone] Dept December 21, 2023 CHIEF COMPLAINT: Established Patient and Post Op of the Right Elbow. HPI Patient is 3 weeks 3 days post op right ulnar nerve decompression. She denies any pain. ASSESSMENT: G56.21 Ulnar neuropathy of right upper extremity (primary encounter diagnosis) SUMMARY/PLAN: She's doing well. Not really having any issues. Her incision looks excellent. Supporting Information Below: Medications: Current Outpatient Medications Medication Sig sertraline (ZOLOFT) 50 mg tablet Take 1 tablet by mouth once daily. gabapentin (NEURONTIN) 800 mg tablet Take 1 tablet by mouth three times a day for 90 days. meloxicam (MOBIC) 15 mg tablet Take 1 tablet by mouth once daily. With food. semaglutide (OZEMPIC) 2 mg/dose (8 mg/3 mL) pen injector Inject 2 mg subcutaneously one time a week. tiZANidine (ZANAFLEX) 4 mg tablet Take 1 tablet by mouth every 8 hours as needed. rosuvastatin (CRESTOR) 5 mg tablet Take 1 tablet by mouth once daily. omeprazole (PRILOSEC) 40 mg capsule Take 1 capsule by mouth once daily. cholecalciferol, Vitamin D3, (VITAMIN D3) 1,250 mcg (50,000 unit) cap capsule Take 1 capsule by mouth one time a week. Lancing Device (LANCING DEVICE WITH LANCETS[place] [facility] [place] blood sugar once daily Lancets lancets Test blood sugar(s) once daily. Dx: E11.9. New onset type 2 diabetes Insulin: No No current facility-administered medications for this visit. Allergies: Patient has no known allergies. Brendan Flor MD documented in this encounterFulton County Health Center09-23-2024 Telephone encounter Note * Telephone Encounter - Kanika Malone LPN - 12/14/2023 11:31 AM EDT Printed and hand delivered to patient. [facility]-23-[facility] Miscellaneous Notes* Telephone Encounter - Kanika Malone LPN - 12/14/2023 11:31 AM EDT Printed and hand delivered to patient. * Telephone Encounter - Kanika Malone LPN - 12/14/2023 11:26 AM EDT Patient is needing an updated handicap placard. documented in this encounterFulton County Health Center09-23-2024 Telephone encounter Note * Telephone Encounter - Kanika Malone LPN - 12/14/2023 11:26 AM EDT Patient is needing an updated handicap placard. [facility] Telephone encounter Note* Telephone Encounter - Serenity Mena APRN.CNP - 12/08/2023 9:21 AM EDT Injection order signed off [facility] Work Phone: 1(871) 413-460909-17-2024 Miscellaneous Notes* Telephone Encounter - Serenity Mena APRN.CNP - 12/08/2023 9:21 AM EDT Injection order signed off * Telephone Encounter - Regina Joya RN - 12/08/2023 9:11 AM EDT Patient contacted via MyChart to schedule injection. Patient has scheduled for: January 07, 2024 Patient instructed to hold the following medication(s) prior to the procedure: Diabetic, Mobic Pre-procedure instructions were sent via [employer]. * Telephone Encounter - Regina Joya RN - 12/08/2023 8:46 AM EDT [employer] message read: Last read by Olga Lidia Tello at 8:13 AM on 12/08/2023. * Telephone Encounter - Regina Joya RN - 12/08/2023 8:[address] Montejo reviewed patient's cervical MRI. Cervical MRI shows: Multilevel degenerative disc disease (wear and tear) Bulging disc at C5-6 Foraminal stenosis (narrowing where the nerves exit the spine) at C4-5 Dr. Montejo recommends a left paramedian C6-7 cervical epidural steroid injection. [employer] message sent. Injection order pended for provider review. Routing to provider. documented in this encounterFulton County Health Center09-17-2024 Telephone encounter Note * Telephone Encounter - Regina Joya RN - 12/08/2023 9:11 AM EDT Patient contacted via [employer] to schedule injection. Patient has scheduled for: January 07, 2024 Patient instructed to hold the following medication(s) prior to the procedure: Diabetic, Mobic Pre-procedure instructions were sent via [employer]. [facility] Telephone encounter Note* Telephone Encounter - Regina Joya RN - 12/08/2023 8:46 AM EDT [employer] message read: Last read by Olga Lidia Tello at 8:13 AM on 12/08/2023. [facility] Telephone encounter Note* Telephone Encounter - Regina Joya RN - 12/08/2023 8:[address] Montejo reviewed patient's cervical MRI. Cervical MRI shows: Multilevel degenerative disc disease (wear and tear) Bulging disc at C5-6 Foraminal stenosis (narrowing where the nerves exit the spine) at C4-5 Dr. Montejo recommends a left paramedian C6-7 cervical epidural steroid injection. Stamplay message sent. Injection order pended for provider review. Routing to provider. [facility]09-13-2024 History of Present illness Narrative* Shruthi Cabezas - 12/04/2023 2:40 AM EDT Sleep Study Check-In Documentation Date: December 04, 2023 Name: Olga Lidia Tello Patient was accompanied by Self. Location: [place] Latex allergy: No Tape allergy: No Current medications were reviewed with the patient:Yes Sleep aid taken by patient for the sleep study: [place] of sleep aid: Not Applicable Procedure was explained to the patient and all questions were answered. PAP treatment discussed and shown to patient: Yes Knowledge Program (KP): KP was not completed in [facility] by patient and accepted Study type: Polysomnogram Adverse Event: No (If yes create a new abstract) Comments: Patient was advised to follow up with their ordering provider regarding test results Shruthi Cabezas * Lonnie Garay III, PhD - 10/30/2023 12:04 PM EDT October 30, 2023 Standing PSG Orders signed in the last 90 days None Future PSG Orders signed in the last 90 days Ordered Auth. provider PAP TITRATION PSG (CPAP, BIPAP, ASV) [[id number]] 10/09/23 Pedro Patricia APRN.NUTRITION SERVICES WORKER Assoc. diagnoses: WILTON on CPAP [G47.33] Q: Indications: A: Obstructive sleep apnea Q: STOP-BANG conditions - Select All That Apply: A: AGE > 50 A2: SNORING that is loud or disruptive A3: TIREDNESS, fatigue or sleepiness during the day Q: Special Needs (e.g.behavior, non-ambulatory, >450 lbs)?: A: No Q: Prior PAP (CPAP or Bilevel PAP) Use?: A: Yes Q: Sleep History: A: Sleep apnea Q: Current use of supplemental oxygen during sleep period?: A: No Q: Add supplemental oxygen if needed per sleep lab policy?: A: Yes All Prior Sleep Studies (past 365 days) 10/09/2023 16:12 Sleep Studies PAP TITRATION PSG (CPAP, BIPAP, ASV) PAP TITRATION PSG (CPAP, BIPAP, ASV) Order Status: Ordered, Future Expires: 11/07/24 BMI Readings from Last 2 Encounters: 10/09/23 : (P) 34.44 kg/m 07/07/23 : (P) 36.16 kg/m PAST MEDICAL HISTORY No date: Aneurysm (HCC) Comment: 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 Palencia will check MRA in 2012 No date: Benign paroxysmal positional vertigo Comment: not an issue since 2006 No date: Cataract 2007: Chronic cholecystitis No date: Diabetes (HCC) No date: Dizziness and giddiness 10/16/2011: Elevated AST (SGOT) No date: Esophageal reflux 06/19/2008: Excessive or frequent menstruation 12/23/2013: Family history of cardiac disorder in mother No date: Fibromyalgia 01/12/2006: Hallux valgus (acquired) No date: Hx-TIA (transient ischemic attack) Comment: January 2012 [place] 03/19/2006: Mixed hyperlipidemia Comment: Resolved 09/12/2014: Morbid obesity with BMI of 40.0-44.9, adult (HCC) No date: Myalgia and myositis, unspecified No date: Neuropathy Comment: Dr. Schmidt managing No date: WILTON (obstructive sleep apnea) Comment: non compliant with CPAP 01/12/2006: Other enthesopathy of ankle and tarsus No date: Other osteoporosis 08/16/2015: Restless leg syndrome Comment: Dr. Schmidt managing 08/17/2015: Retinal detachment 07/15/2022: Stage 3 chronic kidney disease (HCC) The medical record was reviewed to determine if the proposed sleep study conforms to the AASM Practice Parameters for the Indications for Polysomnography and Related Procedures, or if the sleep studyis indicated for other reasons. Indications for study: WILTON suspected with comorbid medical or sleep disorders: Neurologic diseases including neuromusculardisease or stroke Restless legs syndrome (diagnosis alone insufficient to perform sleep study) Previously Diagnosed: Needs new study Sleep study to be performed: Split Study-Polysomnogram with PAP titration Special instructions: Split night study if AHI > 10. Start with 5 cmH2O then titrate per protocol Target REM/supine sleep Add EtCO2 or Transcutaneous CO2 if available HX of WILTON, Last study in 2017, needs new study [facility] Staff Note: I have read the above protocol, edited as needed, and agree to the plan. Lonnie Garay III, PhD 4:55 PM, 10/30/2023 * Phuong Jacinto - 10/30/2023 8:50 AM EDT October 30, 2023 An order has been received for PAP titration study from Pedro Perry a B. [facility] Staff. Visit prep complete. Comments :No The sleep study is scheduled for 12/02. Insurance: Payor: [employer] CROSS AND BLUE SHIELD / Plan: [employer]M MEDICARE ADVANTAGE HMO / ProductType: HMO / Payer/Plan Subscr Sex Relation Sub. Ins. ID Effective Group Num 1. OLGA LIDIA HINES 1970 Female Self [id number] [facility]/22 [id number] [address] 2. MEDICAID [place] -* OLGA LIDIA TELLO 1970 Female Self [id number] [birth year] [address] Phuongchidi Jacinto documented in this encounterF[facility]09-[facility] Telephone encounter Note * Telephone Encounter - Riddhi Rivera PA-C - 12/03/2023 8:43 AM EDT Noted, thank you. [facility]09-12-2024 Miscellaneous Notes* Telephone Encounter - Riddhi Rivera PA-C - 12/03/2023 8:43 AM EDT Noted, thank you. * Telephone Encounter - Olga Lidia Pierre MA - 12/03/2023 8:30 AM EDT FYI - Patient arrived at the office states there was something wrong with her arm. Patient had Ulnar nerve decompression last Sunday 11/26. Patient only had an aayush wrap on her elbow. States the splint was sliding down her arm so she had her daughter remove it. Patient was complaining she has swellingin her arm. Advised patient the swelling is from removing her splint and not keeping her arm elevated. Applied a new aayush wrap and instructed patient she needs to keep it on and elevate her arm until seen on Thursday for her post op appointment. documented in this encounterFulton [facility] Center09-12-2024 Telephone encounter Note * Telephone Encounter - Olga Lidia Pierre MA - 12/03/2023 8:30 AM EDT FYI - Patient arrived at the office states there was something wrong with her arm. Patient had Ulnar nerve decompression last Sunday 11/26. Patient only had an aayush wrap on her elbow. States the splint was sliding down her arm so she had her daughter remove it. Patient was complaining she has swellingin her arm. Advised patient the swelling is from removing her splint and not keeping her arm elevated. Applied a new aayush wrap and instructed patient she needs to keep it on and elevate her arm until seen on Thursday for her post op appointment. [facility]09-12-[facility] History of Present illness Narrative* Irasema Porter CT - 12/03/2023 8:00 AM EDT Radiology Service Progress Note PATIENT NAME: Olga Lidia Tello DATE OF SERVICE: December 03, 2023 TIME: 8:03 AM PATIENT IDENTITY VERIFICATION COMPLETED USING TWO (2) IDENTIFIERS: Name and Date of confirmedby patient verbally and Name and Date of confirmed by identification band. FALL SCREENING: Has the patient had 2 falls in the last year or 1 fall with injury or currently using an Ambulatory Assistive Device (Walker, Cane, Wheelchair, Crutches, etc.)? No PATIENT GENDER DATA: Female. status: : No status: NO. PATIENT RELEVANT IMPLANT DATA REVIEWED: Yes PATIENT PRESENTS WITH AN IMPLANTABLE OR ATTACHED OPERATING ROOM AIDE: No RADIOLOGY DEPARTMENT: MR; Exam(s) Completed: Spine: Cervical spine PERIPHERAL IV DATA: Not applicable SIGNED BY: ARABELLA Lee December 03, 2023 8:03 AM documented in this encounterFulton [facility] Center09-09-2024 Telephone encounter Note * Telephone Encounter - Pedro Patricia APRN.CNP - 11/30/2023 8:37 AM EDT See other encounter. [facility]09-09-2024 Miscellaneous Notes* Telephone Encounter - Pedro Patricia APRN.CNP - 11/30/2023 8:37 AM EDT See other encounter. documented in this encounterFulton [facility] Center09-05-2024 History of Present illness Narrative* Charlie Rizzo - 11/26/2023 10:57 PM EDT Images from the original note were not included. Last saw pcp: 11/17/23 FOLLOW UP PODIATRIC OFFICE VISIT Chief Complaint: This 53 year old who presents for follow up:painful callus of left foot. She also presents to clinic for diabetic foot exam. Patient presents to clinic for follow-up callus of left foot. Continues with wider shoes and is doing well. Denies any other issues at this time. Here for diabetic foot exam. Does complain of painful toenails of b/l feet. PAIN EVALUATION 11/06/2023 0021 Pain Level: 9 Pain Location: Ankle-Right Description: Aching;Sharp;Sore;Stiffness;Tenderness;Throbbing;Tightness;Tingling Duration Amount of Time: 14 Duration Units: Days Frequency: Continuous Intervention/Comfort measure: Reposition;Relaxation;Distractions;Positioning Comments: Swelling and pain my ankles turning in more Hemoglobin A1C Date Value Ref Range Status 11/17/2023 5.3 4.3 - 5.6 % Final Comment: [place] [employer] guidelines indicate that patients with HgbA1c in the range 5.7-6.4% are at increased risk for development of diabetes, and intervention by lifestyle modification may be beneficial. HgbA1c greater or equal to 6.5% is considered diagnostic of diabetes. 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 Palencia will check MRA in 2012 No date: Anxiety and depression No date: Benign paroxysmal positional vertigo Comment: not an issue since 2006 No date: Cataract 2008: Chronic cholecystitis 2010: Diabetes (HCC) No date: Dizziness and giddiness 10/16/2011: Elevated AST (SGOT) No date: Esophageal reflux 06/19/2008: Excessive or frequent menstruation 12/23/2013: Family history of cardiac disorder in mother No date: Fibromyalgia 01/12/2006: Hallux valgus (acquired) No date: Hx-TIA (transient ischemic attack) Comment: January 2012 [place] No date: Insomnia 03/19/2006: Mixed hyperlipidemia Comment: Resolved 09/12/2014: Morbid obesity with BMI of 40.0-44.9, adult ([facility]) No date: Myalgia and myositis, unspecified No date: Neuropathy Comment: Dr. Schmidt managing No date: WILTON (obstructive sleep apnea) Comment: non compliant with CPAP 01/12/2006: Other enthesopathy of ankle and tarsus No date: Other osteoporosis 08/16/2015: Restless leg syndrome Comment: Dr. Schmidt managing 08/17/2015: Retinal detachment 07/15/2022: Stage 3 chronic kidney disease (HCC) No date: Ulnar neuropathy of right upper extremity Current Outpatient Medications Medication Sig clotrimazole-betamethasone (LOTRISONE) cream Apply 1 application to affected area two times a day for 7 days. sertraline (ZOLOFT) 50 mg tablet Take 1 tablet by mouth once daily. gabapentin (NEURONTIN) 800 mg tablet Take 1 tablet by mouth three times a day for 90 days. meloxicam (MOBIC) 15 mg tablet Take 1 tablet by mouth once daily. With food. semaglutide (OZEMPIC) 2 mg/dose (8 mg/3 mL) pen injector Inject 2 mg subcutaneously one time a week. tiZANidine (ZANAFLEX) 4 mg tablet Take 1 tablet by mouth every 8 hours as needed. rosuvastatin (CRESTOR) 5 mg tablet Take 1 tablet by mouth once daily. omeprazole (PRILOSEC) 40 mg capsule Take 1 capsule by mouth once daily. cholecalciferol, Vitamin D3, (VITAMIN D3) 1,250 mcg (50,000 unit) cap capsule Take 1 capsule by mouth one time a week. Lancing Device (LANCING DEVICE WITH LANCETS) misc Check blood sugar once daily Lancets lancets Test blood sugar(s) once daily. Dx: E11.9. New onset type 2 diabetes Insulin: No No current facility-administered medications for this visit. ALLERGIES No Known Allergies PAST SURGICAL HISTORY 05/2015: CATARACT EXTRACTION HX; Right 09/15/2022: COLONOSCOPY 08/22/2015: COLONOSCOPY FLX DX W/COLLJ SPEC WHEN PFRMD Comment: Colonoscopy (MAC) 2021: COLONOSCOPY SCREENING 09/15/2022: EGD 2021: EGD W/O BRSH SPEC VARICIES INJ 06/01/2008: ENDOMETRIAL BX W/WO ENDOCERVIX BX W/O DILAT SPX Comment: Irregular Menses, Menorrhagia and Thickened Lining 08/22/2015: ESOPHAGOGASTRODUODENOSCOPY TRANSORAL DIAGNOSTIC Comment: EGD (MAC) 07/09/2023: INCISE FINGER TENDON SHEATH; Right Comment: right middle and ring trigger release. 07/09/2023: INCISE FINGER TENDON SHEATH; Right Comment: Right middle and ring trigger finger releases No date: INSERTION OF IUD Comment: 07/201708/19/2007: LAPAROSCOPY SURG CHOLECYSTECTOMY No date: PAST SURGICAL HISTORY OF Comment: x 4 2022: PAST SURGICAL HISTORY OF Comment: foot surgery, multiple bilat No date: PAST SURGICAL HISTORY OF Comment: bilateral ankle fractures 06/30/2014: PAST SURGICAL HISTORY OF Comment: right 2nd toe arthroplasty with tenotomies 3rd, 4th, and 5th toe - [facility]- Dr. Conteh 04/2015: PAST SURGICAL HISTORY OF; Right Comment: retinal tear No date: PAST SURGICAL HISTORY OF; Right Comment: right knee surgery 1976: TONSILLECTOMY & ADENOIDECTOMY <AGE 11 Physical Exam: OBJECTIVE: Constitutional: Pt is a well developed 53 year old female who is alert, oriented, cooperative and in no apparent distress. Eyes: Following during examination. No redness or drainage. Respiratory: RR normal and nonlabored. Even breathing. No evidence of distress. Psychology: Patient is engaged during conversation. Normal affect and mood. Does not appear depressed or anxious. NVSI unchanged from previous visit. Dermatological: Nails 3-5 b/l are painful, elongated, thick. Webspaces clean and dry 1-4 b/l. Skin appears well hydrated and supple. good color, texture, turgor. No open lesions present. No callosities present. Musculoskeletal/Orthopaedic: Patient has no pain to palpation of b/l feet Neuropathic changes noted to right foot Hammertoe noted to lesser toes of right foot and left 5th toe ASSESSMENT: Dm (diabetes mellitus), type 2 with neurological complications (hcc) (primary encounter diagnosis) Charcot ankle, right Hammertoe of right foot Callus Onychomycosis Pain in toe PLAN: Diabetic foot exam performed today. Stressed the importance of avoiding barefoot walking, wearing good shoes and inspection of feet daily. Discussed past charcot of right foot. Continue with diabetic shoes and multidensity inserts. Discussed hammertoe of right foot. Recommend she continue with diabetic shoes Discussed callus of left 5th toe. Remains resolved. Continue with wider shoes. Toenails 3-5 b/l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 provider at this time: Yes The last office visit in the department: 07/07/23 Does the patient have a future office visit with this provider/department: Yes Requested Prescriptions Pending Prescriptions Disp Refills gabapentin (NEURONTIN) 800 mg tablet 90 tablet 2 Sig: Take 1 tablet by mouth three times a day for 90 days. Kathi Briones LPN August 31, 2023 3:58 PM [facility] Telephone encounter Note* Telephone Encounter - Kathi Briones LPN - 08/31/2023 3:56 PM EDT Prescription Refill Information The patient has been identified by name and date of : Yes Caregiver verified no other encounters exist for this prescription request: Yes Caregiver confirmed with patient/requestor that no other refills are due, in the near future, with this provider at this time: Yes The last office visit in the department: 07/07/23 Does the patient have a future office visit with this provider/department: Yes Requested Prescriptions Pending Prescriptions Disp Refills sertraline (ZOLOFT) 50 mg tablet 90 tablet 0 Sig: Take 1 tablet by mouth once daily. Kathi Briones LPN August 31, 2023 3:57 PM [facility] Miscellaneous Notes* Telephone Encounter - Kathi Briones LPN - 08/31/2023 3:56 PM EDT Prescription Refill Information The patient has been identified by name and date of : Yes Caregiver verified no other encounters exist for this prescription request: Yes Caregiver confirmed with patient/requestor that no other refills are due, in the near future, with this provider at this time: Yes The last office visit in the department: 07/07/23 Does the patient have a future office visit with this provider/department: Yes Requested Prescriptions Pending Prescriptions Disp Refills sertraline (ZOLOFT) 50 mg tablet 90 tablet 0 Sig: Take 1 tablet by mouth once daily. Kathi Briones LPN August 31, 2023 3:57 PM documented in this encounterFulton County [facility] Center06-03-2024 History of Present illness Narrative* Lula Newton - 08/24/2023 11:12 AM EDT Olga Lidia Tello is identified through a medication adherence outreach initiative based on pharmacy claims data from [employer] (insurer) for Non-insulin DM medication(s). Patient is reviewed 08/24/23 due to medication adherence concerns with the following medications (name, strength, sig): Ozempic 1mg once weekly . Per data/report, last fill date and days supply: Ozempic due 08/25 Per reconcile dispense, last fill date and days supply: Ozempic 07/29/23 Per call to pharmacy, last picked up date and days supply: n/a Outcome of review/outreach: (choose outcome source and status) - Medication changed or discontinued per reconcile dispense Per [facility] Ozempic was increased to Ozempic 2mg 08/13/23 Lula Newton Rn Social Services documented in this encounterFulton County [facility] Center06-03-2024 History of Present illness Narrative* Riddhi Rivera PA-C - 08/24/2023 10:07 AM EDT Riddhi Rivera PA-C Department of Orthopaedics Orthopaedics [address] [facility] [address] Dept: [phone] Dept August 24, 2023 CHIEF COMPLAINT: Post Op of the Right Middle Finger, Post Op of the Right Ring Finger, and 6 weeks 4 days post op Right 3rd and 4th (trigger finger releases/). ASSESSMENT: G56.21 Lesion of right ulnar nerve (primary encounter diagnosis) R20.0 Bilateral hand numbness M65.331 Acquired trigger finger of right middle finger M65.341 Acquired trigger finger of right ring finger SUMMARY/PLAN: Patient presents 6 weeks and 4 days status post right third and fourth trigger finger releases. Sheis doing well, still having a little bit of swelling and some stiffness especially in the middle digit. No locking or catching of the digits overall things are going very well. She does complain of numbness and tingling in the right pinky digit. Her elbow also aches medially.She had been seeing a life trainer and has been doing some increased activity to try to build strength. She is a diabetic, she tells me that she has known peripheral neuropathy in her lower extremities, has never had an EMG of the upper extremities. Gets occasional numbness and tingling in all of her digits. Right pinky seems to be the worst. Sounds like she may have some right ulnar neuropathy/subluxation. We discussed getting an ultrasound for confirmation. I would also like to get an EMG just to confirm that the numbness and tingling in her hands is in fact from her peripheral neuropathy. Patient will follow-up after the ultrasound and EMG to discuss. Exam: Right elbow with tenderness palpation at the cubital tunnel, the ulnar nerve subluxes with flexion and extension of the right elbow. Subjective numbness in the right ulnar 2 digits, there is some intrinsic weakness on testing. Subjective numbness in all the digits on the right and left hand. No thenar atrophy noted. Negative carpal tunnel compression testing bilaterally. Ms. Olga Lidia Tello was advised as to contrast therapies and/or to take analgesics/anti-inflammatories as needed and all contraindications were reviewed. Supporting Information Below: Medications: Current Outpatient Medications Medication Sig semaglutide (OZEMPIC) 2 mg/dose (8 mg/3 mL) pen injector Inject 2 mg subcutaneously one time a week. traZODone (DESYREL) 50 mg tablet Take 1 tablet by mouth daily at bedtime. sertraline (ZOLOFT) 50 mg tablet take 1 tablet by mouth once daily gabapentin (NEURONTIN) 800 mg tablet Take 1 tablet by mouth three times a day for 90 days. omeprazole (PRILOSEC) 40 mg capsule Take 1 capsule by mouth once daily. cholecalciferol, Vitamin D3, (VITAMIN D3) 1,250 mcg (50,000 unit) cap capsule Take 1 capsule by mouth one time a week. Lancing Device (LANCING DEVICE WITH LANCETS) misc Check blood sugar once daily Lancets lancets Test blood sugar(s) once daily. Dx: E11.9. New onset type 2 diabetes Insulin: No tiZANidine (ZANAFLEX) 4 mg tablet Take 1 tablet by mouth every 8 hours as needed. mupirocin (BACTROBAN) 2 % ointment Apply to affected area once daily. No current facility-administered medications for this visit. Allergies: Patient has no known allergies. This note was partially generated using [employer] voice recognition system, and there may be some incorrect words, spellings, and punctuation that were not noted in checking the note before saving. Riddhi Rivera PA-C * Olga Lidia Pierre MA - 08/24/2023 8:52 AM EDT Patient presents with: Right Middle Finger - Post Op Right Ring Finger - Post Op 6 weeks 4 days post op Right 3rd and 4th : trigger finger releases AMB ROOMING INTAKE FLOWSHEET DATA Pain Pain Level: 5 Pain Location: Hand-Right Description: Sore Duration Amount of Time: (Post op) Duration Units: Days Frequency: Continuous Intervention/Comfort measure: Medication Patient states she is still having some soreness in her fingers. She is able to make a complete fist. Taking Aleve for the pain and helps some. documented in this encounterFulton County [facility] Center06-03-2024 History of Present illness Narrative* Jovon Ortiz, PT - 08/24/2023 7:49 AM EDT Images from the original note were not included. Episode Visit Count: 6 Therapist That Will Accept/Oversee The Plan Of Care: Jovon Ortiz PT Start of Care Date: 06/05/23 Onset Date: 02/04/23 Plan of Care Certification Date: 08/24/23 Next Certification Due Date: 09/28/23 Patient Identified by Name and Date of : Yes REHABILITATION AND SPORTS THERAPY PHYSICAL THERAPY PROGRESS REPORT PLAN OF CARE UPDATE: Assessment: Olga Lidia Tello demonstrates difficulty with sitting, lifting, and recreational activities. She has made minimal progress towards goals.. Patient continues to present with impairments in flexibility, independence in exercise, overall function, symptom management, and tissue tenderness that interfere with lifting, carrying, pushing, pulling, cleaning, use hand with arm at shoulder level, reaching overhead, sleeping, driving . Current prognosis is Fair due to: clinical presentation, multiple co- morbidities, Prognosis may be improved by acuteness of injury. She will benefit from continued skilledtherapy services to meet the updated goals for this plan of care as noted below. Goals updated 08/24/23 Goals for Episode of Care: created on 06/05/23 through 07/31/23 [place] in home exercise program. - MET Patient will decrease pain rating by 2 points to meet minimal clinical important difference for numeric pain rating scale. - MET Patient will increase active ROM of left shoulder ER to symmetrical with right to allow pt to to improve performance of ADLs.- Progressing, will continue Lift 5# overhead with decreased report of symptoms/pain in 8 weeks or Less.- Not met, will continue Perform work at shoulder height for 10 minutes without increased pain to promote ease with cooking and folding laundry.- Not met, will continue Improve postural awareness.- MET Restore pain free cervical ROM to WNL to allow for improved body Mechanics. - Progressing, will continue Drive with no aggravation of pain/symptoms. - Not met, will continue Sleep throughout the night without pain/symptoms. - Progressing Patient Goals: Reduce pain, return to the gym Patient Goals: Reduce pain, return to the gym Planned Interventions, Frequency, and Duration: 1x/week, 4 weeks Total Number of Visits Planned: 4 Patient to be seen for Therapeutic exercise (45314), Neuromuscular re-education (24751), Manual therapy (00790), Therapeutic activities (15183), Self-nursing home management (48596), Body Mechanics Training, E-Stim Attended/TENS (72970), E- Stim Unattended (77978), Patient/Family/Caregiver Education PLAN FOR NEXT VISIT: DDN R upper trap and thoracic/cervical paraspinals SUBJECTIVE: Feels that she has only made slight progress with her pain. She is hoping to return to Dr. Montejo and maybe get an injection or imaging. Does not want to continue with PT since it is not helping. Has had acupuncture in the past.. Patient Goals: Reduce pain, return to the gym Functional Limitations: lifting, carrying, pushing, pulling, cleaning, use hand with arm at shoulder level, reaching overhead, sleeping, driving Prior Level of Function: Independent without limitations Intake Information: Prescription present Previous Treatment: Heat , Chiropractor Pain: Pain Pain Level: 8 Pain Location: Neck, Shoulder - Left Post Treatment Pain Post Treatment Pain Level: 6 Post Treatment Pain Location: Neck PROMIS Scales 08/09/2023 08/02/2023 07/10/2023 Higher is Better Phys Func - Score 37 (moderate dysfunction) 34 (moderate dysfunction) Phys Func - Percentile 10 5 Self-Eff Symptom - Score 42 (Average) Self-Eff Symptom - Percentile 21 T-scores: mean of general population = 50. 5 points is clinically meaningfully difference Percentiles provide an indication of how the patient's score ranks in relation to the general population. Higher percentile rankings indicate better function/quality of life. 50th percentile is the average of the general population and indicates half of respondents had a worse score. OBJECTIVE MEASURES WITH LEVEL OF FUNCTION: Posture / Alignment Posture: Forward head, Rounded shoulders Spine Observations R Cervical Spine Palpation Tenderness: Upper trapezius, Levator scapulae, Paraspinals, Suboccipitals, Sternocleidomastoid, Scalenes Cervical Spine ROM Cervical ROM : Limitation AROM Cervical Flexion AROM: Normal (end range tightness and pain along thoracic paraspinals) Cervical Extension AROM: Normal Cervical Side-Bend Right AROM: Normal Cervical Side-Bend Left AROM: Minimal limitation, Increased pain UE AROM R UE AROM: WNL L UE AROM: WNL UE Flexibility Flexibility: Upper Trapezius R Upper Trapezius Flexibilty Comments: impaired TREATMENT: Manual Therapy: 1: All objective measures taken this session 2: DDN (see note for details) 3: STM over R upper trapfirm pressure Skilled Intervention: Manual skills to improve joint mobility, ROM, and decrease pain. Utilized anatomy knowledge of the therapist, and assessment of patient's response to intervention. Billing Manual TherapyTreatment Minutes: 40 Skilled Treatment Time Minutes (timed and untimed codes): 40 Total Session Time (minutes): 40 Session Start Time : 748 Session Stop Time : 828 Jovon Ortiz PT documented in this encounterF[facility]-30-[facility] Telephone encounter Note * Telephone Encounter - Riddhi Rivera PA-C - 08/20/2023 8:10 AM EDT Patient has follow up visit 08/23, we can discuss additional imaging at that visit. [facility] Work Phone: [phone] Miscellaneous Notes* Telephone Encounter - Riddhi Rivera PA-C - 08/20/2023 8:10 AM EDT Patient has follow up visit 08/23, we can discuss additional imaging at that visit. documented in this encounterFulton [facility]05-26-2024 Telephone encounter Note * Telephone Encounter - Lulu Luciano MD - 08/16/2023 11:58 PM EDT Dose was increased 08/11 [facility]05-26-[facility] Miscellaneous Notes* Telephone Encounter - Lulu Luciano MD - 08/16/2023 11:58 PM EDT Dose was increased 08/11 documented in this encounterFulton County [facility] Center05-16-2024 History of Present illness Narrative* Phuong Boogie RT(R) - 08/06/2023 11:50 AM EDT Radiology Service Progress Note PATIENT NAME: Olga Lidia Tello DATE OF SERVICE: August 06, 2023 TIME: 12:50 PM PATIENT IDENTITY VERIFICATION COMPLETED USING TWO (2) IDENTIFIERS: Name and Date of confirmedby patient verbally. FALL SCREENING: Has the patient had 2 falls in the last year or 1 fall with injury or currently using an Ambulatory Assistive Device (Walker, Cane, Wheelchair, Crutches, etc.)? No PATIENT GENDER DATA: Female. status: : No status: NO. PATIENT RELEVANT IMPLANT DATA REVIEWED: Not Applicable PATIENT PRESENTS WITH AN IMPLANTABLE OR ATTACHED OPERATING ROOM AIDE: No RADIOLOGY DEPARTMENT: General X-ray: Exam(s) Completed: Lower Extremity X- Ray(s): Ankle, Right and Feet, Bilateral and Wt. Bearing PERIPHERAL IV DATA: Not applicable SIGNED BY: RT Symone(R) August 06, 2023 12:50 PM documented in this encounterFulton County [facility] Center05-16-2024 History of Present illness Narrative* Maine Santo RN - 08/06/2023 11:[address] RizzoOlga Lidia was provided with Gel toe cap, size Large, and instructed/educated in its application, wear, and care. All questions were answered, and patient was able to demonstrate competence with the necessary skills to utilize the above equipment. Maine Santo RN * Charlie Rizzo - 08/06/2023 11:13 AM EDT Images from the original note were not included. FOLLOW UP PODIATRIC OFFICE VISIT Chief Complaint: This 52 year old who presents for follow up:ulceration of left 2nd and left 5th toe Patient presents to clinic for follow-up left 2nd and left 5th toe ulceration. Patient states the ulceration is now healed. She is treating the foot with lotion She is wearing diabetic shoes She has no other complaints. PAIN EVALUATION 08/06/2023 1109 Pain Level: 8 neuropathy Pain Location: Other: See Comment bilateral Frequency: Continuous Hemoglobin A1C Date Value Ref Range Status 07/02/2023 5.8 (H) 4.3 - 5.6 % Final Comment: [place] [employer] guidelines indicate that patients with HgbA1c in the range 5.7-6.4% are at increased risk for development of diabetes, and intervention by lifestyle modification may be beneficial. HgbA1c greater or equal to 6.5% is considered diagnostic of diabetes. 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 Talha gannon MRA in 2012 Benign paroxysmal positional vertigo not an issue since 2006 Cataract Chronic cholecystitis 2007 Diabetes ([facility]) Dizziness and giddiness Elevated AST (SGOT) 10/16/2011 Esophageal reflux Excessive or frequent menstruation 06/19/2008 Family history of cardiac disorder in mother 12/23/2013 Fibromyalgia Hallux valgus (acquired) 01/12/2006 Hx-TIA (transient ischemic attack) January 2012 [place] Mixed hyperlipidemia 03/19/2006 Resolved Morbid obesity with BMI of 40.0-44.9, adult ([facility]) 09/12/2014 Myalgia and myositis, unspecified Neuropathy Dr. Schmidt managing WILTON (obstructive sleep apnea) non compliant with CPAP Other enthesopathy of ankle and tarsus 01/12/2006 Other osteoporosis Restless leg syndrome 08/16/2015 Dr. Schmidt managing Retinal detachment 08/17/2015 Stage 3 chronic kidney disease ([facility]) 07/15/2022 Current Outpatient Medications Medication Sig semaglutide (OZEMPIC) 1 mg/dose (4 mg/3 mL) pen Inject 1 mg subcutaneously one time a week. traZODone (DESYREL) 50 mg tablet Take 1 tablet by mouth daily at bedtime. sertraline (ZOLOFT) 50 mg tablet take 1 tablet by mouth once daily tiZANidine (ZANAFLEX) 4 mg tablet Take 1 tablet by mouth every 8 hours as needed. gabapentin (NEURONTIN) 800 mg tablet Take 1 tablet by mouth three times a day for 90 days. omeprazole (PRILOSEC) 40 mg capsule Take 1 capsule by mouth once daily. cholecalciferol, Vitamin D3, (VITAMIN D3) 1,250 mcg (50,000 unit) cap capsule Take 1 capsule by mouth one time a week. Lancing Device (LANCING DEVICE WITH LANCETS) misc Check blood sugar once daily Lancets lancets Test blood sugar(s) once daily. Dx: E11.9. New onset type 2 diabetes Insulin: No dulaglutide (TRULICITY) 4.5 mg/0.5 mL pen injector Inject 4.5 mg subcutaneously one time a week. mupirocin (BACTROBAN) 2 % ointment Apply to affected area once daily. No current facility-administered medications for this visit. ALLERGIES No Known Allergies PAST SURGICAL HISTORY Procedure Laterality Date CATARACT EXTRACTION HX Right 05/2015 COLONOSCOPY 09/15/2022 COLONOSCOPY FLX DX W/COLLJ SPEC WHEN PFRMD 08/22/2015 Colonoscopy (MAC) COLONOSCOPY SCREENING 2021 EGD 09/15/2022 EGD W/O [facility] SPEC VARICIES INJ 2021 ENDOMETRIAL BX W/WO ENDOCERVIX BX W/O DILAT SPX 06/01/2008 Irregular Menses, Menorrhagia and Thickened Lining ESOPHAGOGASTRODUODENOSCOPY TRANSORAL DIAGNOSTIC 08/22/2015 EGD (MAC) INCISE FINGER TENDON SHEATH Right 07/09/2023 right middle and ring trigger release. INSERTION OF IUD 07/2017 LAPAROSCOPY SURG CHOLECYSTECTOMY 08/19/2007 PAST SURGICAL HISTORY OF x 4 PAST SURGICAL HISTORY OF 2022 foot surgery, multiple bilat PAST SURGICAL HISTORY OF bilateral ankle fractures PAST SURGICAL HISTORY OF 06/30/2014 right 2nd toe arthroplasty with tenotomies 3rd, 4th, and 5th toe - [facility]- Dr. Conteh PAST SURGICAL HISTORY OF Right 04/2015 retinal tear PAST SURGICAL HISTORY OF Right right knee surgery TONSILLECTOMY & ADENOIDECTOMY <AGE 11 Physical Exam: OBJECTIVE: Constitutional: Pt is a well developed 52 year old female who is alert, oriented, cooperative and in no apparent distress. Eyes: Following during examination. No redness or drainage. Respiratory: RR normal and nonlabored. Even breathing. No evidence of distress. Psychology: Patient is engaged during conversation. Normal affect and mood. Does not appear depressed or anxious. NVSI unchanged from previous visit. Dermatological: Nails 1-5 b/l are normal. Webspaces clean and dry 1-4 b/l. Skin appears well hydrated and supple. good color, texture, turgor. No open lesions present. Minimal callus is noted to left 5th toe Musculoskeletal/Orthopaedic: Patient has no pain to palpation of left foot Adductovarus deformity is present to left 5th toe. Recurrent hallux valgus deformity is noted b/l Long 2nd toe, left foot Hammertoe of lesser toes right foot. Midfoot collapsoe right foot ASSESSMENT: (E11.49) DM (diabetes mellitus), type 2 with neurological complications (HCC) (primary encounter diagnosis) (M20.41) Hammertoe of right foot (L84) Callus (M14.671) Charcot ankle, right PLAN: Diabetic foot exam performed. Again stressed the importance of avoiding barefoot walking, continueduse of diabetic shoes and monitoring feet Discussed hammertoe of lesser toes of b/l feet. Continue with wider shoes. Callus reduced to left 5th toe with dremmel. Discussed surgical options. Patient is interested in conservative care Discussed charcot of right foot. Will get xrays of right foot Charlie Rizzo DPM * Maine Santo RN - 08/06/2023 11:07 AM EDT AMB ROOMING INTAKE FLOWSHEET DATA Pain Pain Level: 8 (neuropathy) Pain Location: Other: See Comment (bilateral) Frequency: Continuous Patient presents with: Left Foot - Established Patient, Follow Up, Pain, Diabetic Foot Check Right Foot - Established Patient, Follow Up, Pain, Diabetic Foot Check Patient presents for 1 month follow up ulcer to left 2nd toe. DESTIN 07/07/23. Small scab to tip of toe. Patient also due for diabetic foot exam. documented in this encounterFulton [facility] Center05-15-2024 History of Present illness Narrative* Katharine Butler RP - 08/05/2023 3:09 PM EDT Pt chart reviewed as part of population health initiative focused on statin use in patients with diabetes (DM) or cardiovascular disease (CVD). Olga Lidia Tello is identified through data from [employer] (insurer) as a potential candidate for statin therapy with no prescriptions claims processed for a statin medication in this calendar year. 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 Talha gannon MRA in 2012 Benign paroxysmal positional vertigo not an issue since 2006 Cataract Chronic cholecystitis 2007 Diabetes ([facility]) Dizziness and giddiness Elevated AST (SGOT) 10/16/2011 Esophageal reflux Excessive or frequent menstruation 06/19/2008 Family history of cardiac disorder in mother 12/23/2013 Fibromyalgia Hallux valgus (acquired) 01/12/2006 Hx-TIA (transient ischemic attack) January 2012 [place] Mixed hyperlipidemia 03/19/2006 Resolved Morbid obesity with BMI of 40.0-44.9, adult ([facility]) 09/12/2014 Myalgia and myositis, unspecified Neuropathy Dr. Schmidt managing WILTON (obstructive sleep apnea) non compliant with CPAP Other enthesopathy of ankle and tarsus 01/12/2006 Other osteoporosis Restless leg syndrome 08/16/2015 Dr. Schmidt managing Retinal detachment 08/17/2015 Stage 3 chronic kidney disease ([facility]) 07/15/2022 Cholesterol, Total (mg/dL) Date Value 04/07/2023 194 11/15/2020 198 HDL Cholesterol (mg/dL) Date Value 04/07/2023 37 11/15/2020 36 LDL Cholesterol (mg/dL) Date Value 04/07/2023 132 11/15/2020 131 Triglyceride (mg/dL) Date Value 04/07/2023 124 11/15/2020 157 No reason identified, patient has upcoming visit with PCP. Will forward message to provider to suggest discussing initiation of statin at f/up visit. Outcome of review: Pending outreach to provider Follow-up needed from this call (I.e. labs ordered, consult to pharmacy) - Will outreach provider close to time of appt (10/05) Katharine Butler RPh documented in this encounterFulton [facility] Center05-06-2024 History of Present illness Narrative* Riddhi Rivera PA-C - 07/27/2023 2:40 PM EDT Riddhi Rivera PA-C Department of Orthopaedics Orthopaedics [address] [facility] [address] Dept: [phone] Dept July 27, 2023 CHIEF COMPLAINT: Post Op and Trigger Finger of the Right Middle Finger and Post Op and Trigger Finger of the Right Ring Finger. ASSESSMENT: M65.331 Acquired trigger finger of right middle finger (primary encounter diagnosis) M65.341 Acquired trigger finger of right ring finger SUMMARY/PLAN: Patient presents 18 days status post right middle and ring trigger finger releases. She is doing well, has some tightness in the hand. Admits that she has been overdoing things a bit. She has been going to [employer], lifting weights, reports that she worked out today for 2 hours. We discussed proper hand washing, no soaking of the operative hand. No heavy lifting, pushing or pulling with theoperative hand, encourage gentle motion. We discussed scar massage. Follow up as planned. Exam: Both incision sites are well-approximated without erythema or drainage. Mild but appropriate edema at the base of the ring and middle digits. Patient is able to form a full composite fist and extend all digits without any locking or catching. There is some subjective stiffness at the knuckles. Imaging: Deferred today. Ms. Olga Lidia Tello was advised as to contrast therapies and/or to take analgesics/anti-inflammatories as needed and all contraindications were reviewed. Supporting Information Below: Medications: Current Outpatient Medications Medication Sig semaglutide (OZEMPIC) 1 mg/dose (4 mg/3 mL) pen Inject 1 mg subcutaneously one time a week. traZODone (DESYREL) 50 mg tablet Take 1 tablet by mouth daily at bedtime. sertraline (ZOLOFT) 50 mg tablet take 1 tablet by mouth once daily tiZANidine (ZANAFLEX) 4 mg tablet Take 1 tablet by mouth every 8 hours as needed. gabapentin (NEURONTIN) 800 mg tablet Take 1 tablet by mouth three times a day for 90 days. omeprazole (PRILOSEC) 40 mg capsule Take 1 capsule by mouth once daily. cholecalciferol, Vitamin D3, (VITAMIN D3) 1,250 mcg (50,000 unit) cap capsule Take 1 capsule by mouth one time a week. Lancing Device (LANCING DEVICE WITH LANCETS) misc Check blood sugar once daily Lancets lancets Test blood sugar(s) once daily. Dx: E11.9. New onset type 2 diabetes Insulin: No dulaglutide (TRULICITY) 4.5 mg/0.5 mL pen injector Inject 4.5 mg subcutaneously one time a week. mupirocin (BACTROBAN) 2 % ointment Apply to affected area once daily. No current facility-administered medications for this visit. Allergies: Patient has no known allergies. This note was partially generated using [employer] voice recognition system, and there may be some incorrect words, spellings, and punctuation that were not noted in checking the note before saving. Riddhi Rivera PA-C * Virginie Leonard RN - 07/27/2023 1:46 PM EDT AMB ROOMING INTAKE FLOWSHEET DATA Pain Pain Level: 5 Pain Location: Hand-Right Description: Shooting, Sore Duration Amount of Time: 18 Duration Units: Days Frequency: Intermittent Intervention/Comfort measure: Relaxation, Medication (Aleve) Patient presents with: Right Middle Finger - Post Op, Trigger Finger Right Ring Finger - Post Op, Trigger Finger Patient is 2 weeks 4 days post op R middle and ring trigger finger release. documented in this encounterFulton [facility] Center05-06-2024 History of Present illness Narrative* Jovon Ortiz PT - 07/27/2023 12:41 PM EDT Episode Visit Count: 5 Therapist That Will Accept/Oversee The Plan Of Care: Jovon Ortiz PT Start of Care Date: 06/05/23 Onset Date: 02/04/23 Plan of Care Certification Date: 07/10/23 Next Certification Due Date: 08/14/23 Patient Identified by Name and Date of : Yes REHABILITATION AND SPORTS THERAPY PHYSICAL THERAPY TREATMENT NOTE ASSESSMENT: Olga Lidia Tello tolerated the session with fatigue and expected muscle soreness. She demonstrated improvements in PPT with continued reps. The patient will continue to benefit from ongoing skilled physical therapy to progress toward set goals. PLAN FOR NEXT VISIT: Continue with neck and core strengthening. Consider Pallof's press. SUBJECTIVE: Pt reports that she is feeling pretty good this morning, worked out for a couple of hours this morning and feels limbered up. Pain: Pain Pain Level: 5 Pain Location: Neck, Shoulder - Left Post Treatment Pain Post Treatment Pain Level: Better Post Treatment Pain Location: Neck OBJECTIVE MEASURES WITH LEVEL OF FUNCTION: B HS tightness. TREATMENT: Therapeutic Exercise: 1: Cervical ext iso into ball on wall x 10 holding 5 sec each 2: R cervical SB into ball isometric x 10 holding 5 sec 3: Hooklying TA activation 2x10 4: Supine HS stretch 3x30 seconds B 5: Hooklying PPT 2x10 with 1-2 second holds Skilled Intervention: Patient was educated in proper exercise technique and purpose for exercises. Skilled judgment was used in selection of appropriate interventions. Correct performance of therapeutic exercises was facilitated with verbal and visual cuing. Billing Therapeutic Exercise Treatment Minutes: 35 Skilled Treatment Time Minutes (timed and untimed codes): 35 Total Session Time (minutes): 35 Session Start Time : 1240 Session Stop Time : 1315 Shortened session due to pt's late arrival. JIM Granados, PT documented in this encounterFulton County [facility] Center04-30-2024 Note* Letter - Coordinator, Mammography - 07/21/2023 4:55 PM EDT July 22, 2023 PID: [id number] Olga Lidia Tello [address] [place] [address] Dear Ms. Tello, We are pleased to inform you that the results of your recent breast imaging exam on 07/20/2023 are normal. Early detection of cancer is very important. We also understand recommendations regarding breast cancer screening are controversial. Please discuss with your primary care provider which strategy is best for you and whether a mammogram is right for you. Your imaging studies and report will be kept on file at [facility] as part of your permanent medical record and are available for your continuing care. Thank you for allowing us to help in meeting your health care needs. Sincerely, Dr. Jamison Interpreting Radiologist [facility] (Normal over 40) [facility]04-30-2024 Miscellaneous Notes* Letter - Coordinator, Mammography - 07/21/2023 4:55 PM EDT July 22, 2023 PID: [id number] Olga Lidia Tello [address] [place] [address] Dear Ms. Tello, We are pleased to inform you that the results of your recent breast imaging exam on 07/20/2023 are normal. Early detection of cancer is very important. We also understand recommendations regarding breast cancer screening are controversial. Please discuss with your primary care provider which strategy is best for you and whether a mammogram is right for you. Your imaging studies and report will be kept on [facility] at [facility] as part of your permanent medical record and are available for your continuing care. Thank you for allowing us to help in meeting your health care needs. Sincerely, Dr. Jamison Interpreting Radiologist [facility] (Normal over 40) documented in this encounterFulton County Health Center04-29-2024 History of Present illness Narrative* Ciarra Teague Mammo Tech - 07/20/2023 10:50 AM EDT Radiology Service Progress Note PATIENT NAME: Olga Lidia Tello DATE OF SERVICE: July 20, 2023 TIME: 10:52 AM PATIENT IDENTITY VERIFICATION COMPLETED USING TWO (2) IDENTIFIERS: Name and Date of confirmedby patient verbally. FALL SCREENING: Has the patient had 2 falls in the last year or 1 fall with injury or currently using an Ambulatory Assistive Device (Walker, Cane, Wheelchair, Crutches, etc.)? No PATIENT GENDER DATA: Female. status: : No status: NO. PATIENT RELEVANT IMPLANT DATA REVIEWED: Not Applicable PATIENT PRESENTS WITH AN IMPLANTABLE OR ATTACHED OPERATING ROOM AIDE: No RADIOLOGY DEPARTMENT: Mammography PERIPHERAL IV DATA: Not applicable SIGNED BY: Moreno Heck July 20, 2023 10:52 AM documented in this encounterFulton County Health Center04-20-2024 History of Present illness Narrative* Charlie Rizzo - 07/11/2023 10:10 PM EDT Images from the original note were not included. FOLLOW UP PODIATRIC OFFICE VISIT Chief Complaint: This 52 year old who presents for follow up:callus of left 5th toe. Patient presents to clinic for follow-up callus of left 5th toe. Has been using diabetic shoes and toe padding and doing well. Does have callus to tip of left 2nd toe. Is interested in discussing options. PAIN EVALUATION 06/30/2023 0937 Pain Level: 8 Pain Location: Ankle-Right Description: Aching;Numbness;Sharp;Tightness;Tingling Duration Units: Months Frequency: Continuous Intervention/Comfort measure: Medication;Relaxation Hemoglobin A1C Date Value Ref Range Status 07/02/2023 5.8 (H) 4.3 - 5.6 % Final Comment: [place] [employer] guidelines indicate that patients with HgbA1c in the range 5.7-6.4% are at increased risk for development of diabetes, and intervention by lifestyle modification may be beneficial. HgbA1c greater or equal to 6.5% is considered diagnostic of diabetes. 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 Talha g[facility] MRA in 2012 Benign paroxysmal positional vertigo not an issue since 2006 Cataract Chronic cholecystitis 2008 Diabetes ([facility]) Dizziness and giddiness Elevated AST (SGOT) 10/16/2011 Esophageal reflux Excessive or frequent menstruation 06/19/2008 Family history of cardiac disorder in mother 12/23/2013 Fibromyalgia Hallux valgus (acquired) 01/12/2006 Hx-TIA (transient ischemic attack) January 2012 [place] Mixed hyperlipidemia 03/19/2006 Resolved Morbid obesity with BMI of 40.0-44.9, adult ([facility]) 09/12/2014 Myalgia and myositis, unspecified Neuropathy Dr. Schmidt managing WILTON (obstructive sleep apnea) non compliant with CPAP Other enthesopathy of ankle and tarsus 01/12/2006 Other osteoporosis Restless leg syndrome 08/16/2015 Dr. Schmidt managing Retinal detachment 08/17/2015 Stage 3 chronic kidney disease ([facility]) 07/15/2022 Current Outpatient Medications Medication Sig dulaglutide (TRULICITY) 4.5 mg/0.5 mL pen injector Inject 4.5 mg subcutaneously one time a week. sertraline (ZOLOFT) 50 mg tablet take 1 tablet by mouth once daily tiZANidine (ZANAFLEX) 4 mg tablet Take 1 tablet by mouth every 8 hours as needed. gabapentin (NEURONTIN) 800 mg tablet Take 1 tablet by mouth three times a day for 90 days. omeprazole (PRILOSEC) 40 mg capsule Take 1 capsule by mouth once daily. cholecalciferol, Vitamin D3, (VITAMIN D3) 1,250 mcg (50,000 unit) cap capsule Take 1 capsule by mouth one time a week. Lancing Device (LANCING DEVICE WITH LANCETS) misc Check blood sugar once daily Lancets lancets Test blood sugar(s) once daily. Dx: E11.9. New onset type 2 diabetes Insulin: No semaglutide (OZEMPIC) 1 mg/dose (4 mg/3 mL) pen Inject 1 mg subcutaneously one time a week. traZODone (DESYREL) 50 mg tablet Take 1 tablet by mouth daily at bedtime. mupirocin (BACTROBAN) 2 % ointment Apply to affected area once daily. No current facility-administered medications for this visit. ALLERGIES No Known Allergies PAST SURGICAL HISTORY Procedure Laterality Date CATARACT EXTRACTION HX Right 05/2015 COLONOSCOPY 09/15/2022 COLONOSCOPY FLX DX W/COLLJ SPEC WHEN PFRMD 08/22/2015 Colonoscopy (MAC) COLONOSCOPY SCREENING 2021 EGD 09/15/2022 EGD W/O [facility] SPEC VARICIES INJ 2021 ENDOMETRIAL BX W/WO ENDOCERVIX BX W/O DILAT SPX 06/01/2008 Irregular Menses, Menorrhagia and Thickened Lining ESOPHAGOGASTRODUODENOSCOPY TRANSORAL DIAGNOSTIC 08/22/2015 EGD (MAC) INSERTION OF IUD 07/2017 LAPAROSCOPY SURG CHOLECYSTECTOMY 08/19/2007 PAST SURGICAL HISTORY OF x 4 PAST SURGICAL HISTORY OF 2022 foot surgery, multiple bilat PAST SURGICAL HISTORY OF bilateral ankle fractures PAST SURGICAL HISTORY OF 06/30/2014 right 2nd toe arthroplasty with tenotomies 3rd, 4th, and 5th toe - [facility] [place] [facility]- Dr. Conteh PAST SURGICAL HISTORY OF Right 04/2015 retinal tear PAST SURGICAL HISTORY OF Right right knee surgery TONSILLECTOMY & ADENOIDECTOMY <AGE 11 Physical Exam: OBJECTIVE: Constitutional: Pt is a well developed 52 year old female who is alert, oriented, cooperative and in no apparent distress. Eyes: Following during examination. No redness or drainage. Respiratory: RR normal and nonlabored. Even breathing. No evidence of distress. Psychology: Patient is engaged during conversation. Normal affect and mood. Does not appear depressed or anxious. NVSI unchanged from previous visit. Dermatological: Callus to left 5th toe is essentially resolved. No ulceration to left 5th toe. Callus is present to left 2nd toe. No ulceration is noted. Skin is well hydrated. No signs of cellulitis is noted. Musculoskeletal/Orthopaedic: Patient has no pain to palpation of b/l feet Moderate hallux valgus noted to b/l feet. Long 2nd toe is noted to left foot. Adductovarus is noted to left 5th toe. ASSESSMENT: Hammertoe of left foot (primary encounter diagnosis) Dm (diabetes mellitus), type 2 with neurological complications (hcc) Ulcer of toe of left foot, limited to breakdown of skin (hcc) Callus PLAN: Discussed long 2nd toe of left foot. Discussed options not limited to using hammertoe crest pad vs diabetic shoes. Other options discussed for hammertoe of left 2nd toe (long 2nd toe) include distal syme amputaitonvs dipj fusion. Patient not really keen on amputation. Patient may be interested in fusion/shortening of left 2nd toe. If she were interested in surgery of left foot, would give consideration into correcting recurrent hallux valgus deformity of left footvia first mtpj fusion. Discussed diabetes. Avoid barefoot walking, wear good shoes and inspect feet daily. F/u in 1 month. If any issues arise, call for follow-up Callus reduced to left 2nd toe with sakina Rizzo DPM * Maine Santo RN - 07/07/2023 11:21 AM EDT Patient presents with: Left Foot - Established Patient, Follow Up, Callous Patient presents for follow up of left foot callus. [facility] 05/21/23. 2nd toe tip and lateral 5th toe. documented in this encounterFult[facility]04-19-[facility] History of Present illness Narrative* Jovon Ortiz PT - 07/10/2023 2:11 PM EDT Images from the original note were not included. Episode Visit Count: 4 Therapist That Will Accept/Oversee The Plan Of Care: Jovon Ortiz PT Start of Care Date: 06/05/23 Onset Date: 02/04/23 Plan of Care Certification Date: 07/10/23 Next Certification Due Date: 08/14/23 Patient Identified by Name and Date of : Yes [facility] PHYSICAL THERAPY PROGRESS REPORT PLAN OF CARE UPDATE: Assessment: Olga Lidia Tello demonstrates difficulty with lifting, reaching overhead, use hand with arm at shoulder level, pulling, pushing, and carrying and improvements in cervical and shoulder AROM and decreasedoverall pain intensity. She has progressed toward goals. Patient continues to present with impairments in ADL's, independence in exercise, overall function, range of motion, and strength that interfere with lifting, carrying, pushing, pulling, cleaning, use hand with arm at shoulder level, reachingoverhead, sleeping, driving . Current prognosis is Fair due to: clinical presentation, multiple co-morbidities, Prognosis may be improved by acuteness of injury. She will benefit from continued skilled therapy services to meet the updated goals for this plan of care as noted below. Goals updated 07/10/23 Goals for Episode of Care: created on 06/05/23 through 07/31/23 [place] in home exercise program. - MET Patient will decrease pain rating by 2 points to meet minimal clinical important difference for numeric pain rating scale. - MET Patient will increase active ROM of left shoulder ER to symmetrical with right to allow pt to to improve performance of ADLs.- Progressing, will continue Lift 5# overhead with decreased report of symptoms/pain in 8 weeks or Less.- Not met, will continue Perform work at shoulder height for 10 minutes without increased pain to promote ease with cooking and folding laundry.- Not met, will continue Improve postural awareness.- MET Restore pain free cervical ROM to WNL to allow for improved body Mechanics. - Progressing, will continue Drive with no aggravation of pain/symptoms. - Not met, will continue Sleep throughout the night without pain/symptoms. - Progressing Patient Goals: Reduce pain, return to the gym Patient Goals: Reduce pain, return to the gym Planned Interventions, Frequency, and Duration: 1x/week, 8 weeks Total Number of Visits Planned: 8 Patient to be seen for Therapeutic exercise (73957), Neuromuscular re-education (28723), Manual therapy (95315), Therapeutic activities (53001), Self-nursing home management (31192), Body Mechanics Training, E-Stim Attended/TENS (40445), E- Stim Unattended (27591), Patient/Family/Caregiver Education PLAN FOR NEXT VISIT: Neck and core strengthening SUBJECTIVE: Fell 2 days ago due to vertigo. Landed on her back. Did watch the online video about pain. The neck is not as stiff and she could barely move when first starting PT. Does go to the chiropractor. Still having pain with lifting 5# overhead. Still pain with grooming. Sleep is better because she is now usign sleeping pills. Patient Goals: Reduce pain, return to the gym Functional Limitations: lifting, carrying, pushing, pulling, cleaning, use hand with arm at shoulder level, reaching overhead, sleeping, driving Prior Level of Function: Independent without limitations Intake Information: Prescription present Previous Treatment: Karthik Courtneypractor Falls Interview: Two or more falls in the last year Falls Intervention: More thorough falls assessment to be performed Pain: Pain Pain Level: 6 Pain Location: Neck, Shoulder - Left PROMIS Scales 06/30/2023 06/15/2023 06/04/2023 Higher is Better Phys Func - Score 34 (moderate dysfunction) Phys Func - Percentile 5 Self-Eff Symptom - Score 42 (Average) 35 (Low) Self-Eff Symptom - Percentile 21 7 T-scores: mean of general population = 50. 5 points is clinically meaningfully difference Percentiles provide an indication of how the patient's score ranks in relation to the general population. Higher percentile rankings indicate better function/quality of life. 50th percentile is the average of the general population and indicates half of respondents had a worse score. OBJECTIVE MEASURES WITH LEVEL OF FUNCTION: Cervical Spine ROM Cervical Flexion AROM (degrees) : 45 Degrees Cervical Extension AROM (degrees) : 33 Degrees Cervical Side-Bend Right AROM (degrees): 40 Degrees Cervical Side-Bend Left AROM (degrees) : 35 Degrees Cervical Rotation Right AROM (degrees) : 65 Degrees Cervical Rotation Left AROM (degrees) : 72 Degrees UE AROM R Shoulder Flex: 145 Degrees R Shoulder External Rotation (Functional): (Unable to test due to recent hand surgery) L Shoulder Flex: 140 Degrees L Shoulder External Rotation (Functional): T2 UE and Cervical Strength Strength Tested: Cervical Cervical Strength: Neck extensor strength 4/5. R cervical SB strength 4/5. Other directions 5/5. R Shoulder Shrug (C4): 5/5 R Shoulder Flexion: 4/5 R Shoulder Internal Rotation: 4/5 R Shoulder External Rotation: 4/5 R Elbow Extension (C7): 5/5 R Elbow Flexion (C6): 5/5 L Shoulder Flexion: 4/5 L Shoulder Abduction (C5): 5/5 L Shoulder Internal Rotation: 5/5 L Shoulder External Rotation: 5/5 TREATMENT: Therapeutic Exercise: 1: All objective measures taken this session 2: R cervical SB into ball isometric x 10 holding 5 sec 3: Cervical ext iso into ball on wall x 10 holding 5 sec each Skilled Intervention: Patient was educated in proper exercise technique and purpose for exercises. Provided written instruction for home exercise program to facilitate proper performance and compliance. Correct performance of therapeutic exercises was facilitated with verbal and visual cuing. Billing Therapeutic Exercise Treatment Minutes: 45 Skilled Treatment Time Minutes (timed and untimed codes): 45 Total Session Time (minutes): 45 Session Start Time : 1411 Session Stop Time : 1456 Jovon Ortiz PT documented in this encounterFulton [facility]04-16-2024 History of Present illness Narrative* Lulu Luciano MD - 07/07/2023 6:35 PM EDT This note was created using [employer]UD[employer]. Subjective Olga Lidia Tello is a 52 year old female. Patient presents with: F/U 3 Month SUBJECTIVE: Olga Lidia Tello is a 52 year old year old lady here today for 3 month follow up appointment for review of medical conditions. Noted that pharmacy having a hard time getting Trulicity. has only 1 more shot. Weight stuck. 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 Hour on the bike recently--has been increasing mileage. Was down to 240 pounds and then up a little. Lately craving sugars. Vegetables and beans and lentils cause increased gas. Would like to switch to another one. Aunt on Ozempic. Hair thinning lately. Reviewed lost more hair on right side--side sleeps on. Father in April. Was at [place] before . Not sleeping well--mind racing about things to do. Aunt on Ambien. Always tired. Amitriptyline helped with sleep but hard to get up the next day. Tried in January 2023. Trigger finger surgery scheduled. 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 Talha gannon MRA in 2012 Benign paroxysmal positional vertigo not an issue since 2007 Cataract Chronic cholecystitis 2008 Diabetes (HCC) Dizziness and giddiness Elevated AST (SGOT) 10/16/2011 Esophageal reflux Excessive or frequent menstruation 06/19/2008 Family history of cardiac disorder in mother 12/23/2013 Fibromyalgia Hallux valgus (acquired) 01/12/2006 Hx-TIA (transient ischemic attack) January 2012 [place] Mixed hyperlipidemia 03/19/2006 Resolved Morbid obesity with BMI of 40.0-44.9, adult ([facility]) 09/12/2014 Myalgia and myositis, unspecified Neuropathy Dr. Schmidt managing WILTON (obstructive sleep apnea) non compliant with CPAP Other enthesopathy of ankle and tarsus 01/12/2006 Other osteoporosis Restless leg syndrome 08/16/2015 Dr. Schmidt managing Retinal detachment 08/17/2015 Stage 3 chronic kidney disease ([facility]) 07/15/2022 Current Outpatient Medications Medication Sig dulaglutide (TRULICITY) 4.5 mg/0.5 mL pen injector Inject 4.5 mg subcutaneously one time a week. sertraline (ZOLOFT) 50 mg tablet take 1 tablet by mouth once daily tiZANidine (ZANAFLEX) 4 mg tablet Take 1 tablet by mouth every 8 hours as needed. gabapentin (NEURONTIN) 800 mg tablet Take 1 tablet by mouth three times a day for 90 days. omeprazole (PRILOSEC) 40 mg capsule Take 1 capsule by mouth once daily. cholecalciferol, Vitamin D3, (VITAMIN D3) 1,250 mcg (50,000 unit) cap capsule Take 1 capsule by mouth one time a week. Lancing Device (LANCING DEVICE WITH LANCETS) [facility] Check blood sugar once daily Lancets lancets Test blood sugar(s) once daily. Dx: E11.9. New onset type 2 diabetes Insulin: No mupirocin (BACTROBAN) 2 % ointment Apply to affected area once daily. No current facility-administered medications for this visit. Review of Systems Objective BP 118/78 Pulse 85 Temp (!) 35.8 C (96.5 F) Resp 18 Wt 114.3 kg (252 lb) LMP 06/06/2023 (Approximate) SpO2 96% BMI (P) 36.16 kg/m Physical Exam Constitutional: Appearance: Normal appearance. HENT: Head: Normocephalic. Eyes: Conjunctiva/sclera: Conjunctivae normal. Cardiovascular: Rate and Rhythm: Normal rate and regular rhythm. Heart sounds: Normal heart sounds. Pulmonary: Effort: Pulmonary effort is normal. Breath sounds: Normal breath sounds. Musculoskeletal: Right lower leg: No edema. Left lower leg: No edema. Skin: General: Skin is warm and dry. Neurological: General: No focal deficit present. Mental Status: She is alert and oriented to person, place, and time. Psychiatric: Mood and Affect: Mood normal. Behavior: Behavior normal. Thought Content: Thought content normal. Judgment: Judgment normal. Assessment and Plan Encounter Diagnosis ICD-10-CM 1. Type 2 diabetes mellitus without complication, without long-term current use of insulin (HCC) E11.9 2. Insomnia, unspecified type G47.00 3. Obesity (BMI 30-39.9) E66.9 4. Neuropathy G62.9 Titrating down to see if can get off. Above issues addressed with patient. Patient involved in shared decision making for management of medical issues. History and medications reviewed. Epic updated as needed Refills and/or prescriptions taken care of and meds adjusted as indicated after reviewed history, exam and labs. Health Maintenance reviewed. Updated record and/or ordered tests as recorded. Encouraged on efforts at healthy diet and regular exercise and adequate sleep. Needs to keep working on diet and exercise with lifestyle changes for effective weight loss as well as control of DM, and control of BP and lipids. I spent a total of 33 minutes on the date of the service which included [id number] patient care, completing clinical documentation, obtaining and/or reviewing separately obtained history, performing a medically appropriate examination, counseling and educating the patient/family/caregiver, and ordering medications, tests, or procedures. Lulu Luciano MD documented in this encounterFulton County [facility]04-16-2024 Instructions* Patient Instructions* Charlie Rizzo - 07/07/2023 12:03 PM EDT You have a very small opening on left 2nd toe. Apply topical antibiotic until healed Continue with gel padding to left 5th toe Continue with hammertoe pad to left 2nd toe Follow-up in 1 month Diabetes Foot Care Instructions When you have diabetes, proper foot care is very important. Poor foot care may lead to amputation of a foot or leg. As a person with diabetes, you are more vulnerable to foot problems, because diabetes can damage your nerves and reduce blood flow to your feet. Here are some diabetes foot care tips to follow: Wash and Dry Your Feet Daily Use mild soaps Use warm water Pat your skin dry; do not rub. Thoroughly dry your feet. After washing, use lotion on your feet to prevent cracking. Do not put lotion between your toes. Examine Your Feet Each Day Check the tops and bottoms of your feet. Have someone else look at your feet if you cannot see them. Check for dry, cracked skin. Look for blisters, cuts, scratches, or other sores. Check for redness, increased warmth, or tenderness when touching any area of your feet. Check for ingrown toenails, corns, and calluses. If you get a blister or sore from your shoes, do not pop it. Apply a bandage and wear a differentpair of shoes. Take Care of Your Toenails Cut toenails after bathing, when they are soft. Cut toenails straight across and smooth with a nail file. Avoid cutting into the corners of toes. Do not cut cuticles. If you have neuropathy (or decreased sensation in your feet) a command and control officer should always cut your toenails. Be Careful When Exercising Walk and exercise in comfortable shoes. Do not exercise when you have open sores on your feet. Protect Your Feet With Shoes and Socks Never go barefoot. Always protect your feet by wearing shoes or hard-soled slippers or footwear. Avoid shoes with high heels and pointed toes. Avoid shoes that expose your toes or heels (such as open-toed shoes or sandals). These types of shoes increase your risk for injury and potential infections. Try on new footwear with the type of socks you usually wear. Do not wear new shoes for more than an hour at a time. Change your socks daily. Look and feel inside your shoes before putting them on to make sure there are no foreign objects orrough areas. Avoid tight socks. Wear natural-fiber socks (cotton, wool, or a cotton-wool blend). Wear special shoes if your health care provider recommends them. Wear shoes/boots that will protect your feet from various weather conditions (cold, moisture, etc.). Make sure your shoes fit properly. If you have neuropathy (nerve damage), you may not notice that your shoes are too tight. Perform the footwear test described below. Footwear Test Use this simple test to see if your shoes fit correctly: Stand on a piece of paper. (Make sure you are standing and not sitting, because your foot changes shape when you stand.) Trace the outline of your foot. Trace the outline of your shoe. Compare the tracings: Is the shoe too narrow? Is your foot crammed into the shoe? The shoe should be at least 1/2 inch longer than your longest toe and as wide as your foot. Proper Shoe Choices The following types of shoes are best for people with diabetes Closed toes and heels Leather uppers without a seam inside At least 1/2 inch extra space at the end of your longest toe Inside of shoe should be soft with no rough areas Outer sole should be made of stiff material Shoes should be at least as wide as your feet Tips for Foot Care in Diabetes Don't wait to treat a minor foot problem if you have diabetes. Follow your health care provider's guidelines and first aid guidelines. Report foot injuries and infections to your health care provider immediately. Check water temperature with your elbow, not your foot. Do not use a heating pad on your feet. Do not cross your legs. Do not self-treat your corns, calluses, or other foot problems. Go to your health care provider or command and control officer to treat these conditions. documented in this encounterFulton County [facility] Center04-11-2024 History of Present illness Narrative* Nguyen Lin, RT(R) - 07/02/2023 2:30 PM EDT Radiology Service Progress Note PATIENT NAME: Olga Lidia Tello DATE OF SERVICE: July 02, 2023 TIME: 2:22 PM PATIENT IDENTITY VERIFICATION COMPLETED USING TWO (2) IDENTIFIERS: Name and Date of confirmedby patient verbally. FALL SCREENING: Has the patient had 2 falls in the last year or 1 fall with injury or currently using an Ambulatory Assistive Device (Walker, Cane, Wheelchair, Crutches, etc.)? No PATIENT GENDER DATA: Female. status: : No status: NO. PATIENT RELEVANT IMPLANT DATA REVIEWED: Not Applicable PATIENT PRESENTS WITH AN IMPLANTABLE OR ATTACHED OPERATING ROOM AIDE: No RADIOLOGY DEPARTMENT: General X-ray: Exam(s) Completed: Spine X-Ray(s): Sacrum/Coccyx PERIPHERAL IV DATA: Not applicable SIGNED BY: RT Mike(R) July 02, 2023 2:22 PM documented in this encounterFulton County Health Center04-11-2024 Miscellaneous Notes* Result Encounter Note - Sudhir Talbot APRN.CNS - 07/02/2023 2:30 PM EDT Degenerative changes lumbar spine. No fracture or malalignment documented in this encounterFulton County [facility] Center04-11-2024 Progress note* Result Encounter Note - Sudhir Talbot APRN.CNS - 07/02/2023 2:30 PM EDT Degenerative changes lumbar spine. No fracture or malalignment [facility]04-11-20[facility] History of Present illness Narrative* Sudhir Talbot APRN.CNS - 07/02/2023 1:00 PM EDT Images from the original note were not included. Olga Lidia Tello is a 52 year old female here for a Medicare wellness visit. Medicare Health Risk Assessment General Health Poor Exercise: Minutes/Day 60 min Exercise: Days/Week 5 days Alcohol: Daily Use Never Alcohol: Drinks/Day Patient does not drink Alcohol: 6 or more drinks Never Feel off balance No Concerns: Teeth/Dentures No Concerns: Sexual function No Troubled by feelings None of the above Frequency: Eating healthy diet More than half the days ADLs requiring help None of the above Safety precautions in home/vehicle Yes Smoke, vape, chews tobacco No Difficulty hearing Yes Difficulty seeing No Normal activities okay. 4 falls over last year attributed to neuropathy. Notes sarcoid may be affecting her feet. Did have DM ulcer, now healed. Current Providers Specialists: I have reviewed specialist-related care of the patient in the medical record. Dr Rizzo podiatry Dr [facility] for cataract follow up and [place] for vision checks. Detached retina followed in [facility] consultants Medical/Family history review Reviewed and updated problem list, medical/surgical/family/social history, medications, and allergies. Opioid use review Opioid Medications (last 90 days) No data to display Depression screening Depression Screening GRIS-2 Total Score GRIS-7 Total Score 05/01/2023 5 18 Depression screening tool completed and reviewed. Based on score and interview, patient is diagnosed with depression. Screening tool discussed with patient, and I recommended continuing current plan of care. Cognitive screening Cognitive screening reviewed and no further action needed (score 3-5) Brief Assessment of Cognitive Health (BACH) Results: The patient endorsed depression symptoms on PHQ-8[1]. The patient endorsed a level of stress. The patient reported getting about hours of sleep per night, which falls into the category based onNational Sleep Foundation Guidelines [2].They endorsed recent sleep problems. The patient s cognitive test performance was . When invalid, probability of cognitive impairment score should be disregarded. Probability of cognitive impairment [3]: % Above 50% - Probable cognitive impairment; Specialty evaluation may be warranted 20-50% - Possible cognitive impairment; Address moderate to severe depression and sleep issues and retest Below 20% - Very low chance of cognitive impairment Moderate to severe levels of depression or stress may contribute to subjective cognitive complaintsin the absence of cognitive impairment [1] Farhana K, Esme TW, Rebeca RL, Kit CAROLA, Nam OroscoT, Obey AH. The PHQ- 8 as a measure of current depression in the general population. J Affect Disord. 2009;114(1-3):163-173. doi: 10.1016/j.helen.2008.06.026 [2] Colin et al. National Sleep Foundation's sleep time duration recommendations: methodologyand results summary. Sleep Health. 2015 Mar;1(1):40- 43. doi: 10.1016/j.sleh.2014.12.010. [3] Linda RM, Argenis O, César AF, Floden DP. Automated detection of cognitive impairment in clinical practice. Functional Observation Was the patient's Timed Up & Go test unsteady or ? 12 seconds? No Advance Care Planning Surrogate decision maker and/or advance care plan documented Daughter Measurements LMP 03/23/2023 Vision Screening: Follows with optometry/ophthalmology Right: 20/blind Left: 20/ 30 Both: 20/30 Assessment/Plan Medicare annual wellness visit, initial (Z00.00) - Counseled on healthy diet and regular exercise - Fall avoidance information provided - Personalized prevention plan provided -Consider hearing testing Additional Concerns The following concerns were also discussed with the patient: This is a subsequent Medicare visit, has had 2 or 3 before at home. Tailbone pain from 4 falls in the last 12 months. Will complete x-ray. Due for A1c, will check today. Consider increased dose of Zoloft for mood, PHQ9 = 10. PHYSICAL EXAM BP (P) 133/87 Pulse (P) 64 Resp (P) 16 Ht (P) 177.8 cm (5' 10) Wt (P) 114.8 kg (253 lb) LMP 03/23/2023 (Approximate) BMI (P) 36.30 kg/m GENERAL: well appearing, alert, in no acute distress CARDIOVASCULAR: regular rate and rhythm. No murmur, rubs or gallops. PULMONARY: clear to auscultation, no wheezing, rhonchi, or crackles ABDOMEN: soft, non-tender, non-distended, no masses or organomegaly EXTREMITY: no lower extremity edema. No skin discoloration. ASSESSMENT/PLAN: 1. Medicare annual wellness visit, subsequent - ICD9: V70.0, ICD10: Z00.00 (primary diagnosis) - Counseled on healthy diet and regular exercise - Mammogram ordered - exam recommended once yearly - Patient was counseled [id number] by myself (the billing provider) for the following immunizations and vaccine components, including side effects: COVID- 19, declines for now. - Follow up for annual exam in one year 2. Fall, initial encounter - ICD9: E888.9, ICD10: W19.XXXA - XR SACRUM/COCCYX 3V AP/LAT 3. Type 2 diabetes mellitus without complication, without long-term current use of insulin (HCC) - ICD9: 250.00, ICD10: E11.9 well controlled - Continue current medications - HEMOGLOBIN A1C 4. Encounter for immunization - ICD9: V03.89, ICD10: Z23 - PFIZER-BIONTECH COVID-19 VACCINE (2022- [place]) AGE 12+ YR 5. Encounter for screening mammogram for breast cancer - ICD9: V76.12, ICD10: Z12.31 - Encourage monthly BSE - GIGI SCREENING W FARIDEH 6. Aneurysm (HCC) - ICD9: 442.9, ICD10: I72.9 Reports eye doctor follows aneurysm. X-ray of coccyx and A1c today. Keep appointment with PCP next week. Sudhir Talbot APRN.REHAB NURSE Latest Ref Rng 02/03/2023 04/07/2023 05/04/2023 WBC 3.70 - 11.00 k/uL 7.74 8.89 RBC 3.90 - 5.20 m/uL 4.52 4.82 Hemoglobin 11.5 - 15.5 g/dL 13.2 13.9 Hematocrit 36.0 - 46.0 % 41.2 45.2 MCV 80.0 - 100.0 fL 91.2 93.8 MCH 26.0 - 34.0 pg 29.2 28.8 MCHC 30.5 - 36.0 g/dL 32.0 30.8 RDW-CV 11.5 - 15.0 % 13.6 13.7 Platelet Count 150 - 400 k/uL 324 327 MPV 9.0 - 12.7 fL 9.1 9.8 Neut% % 50.5 57.4 Abs Neut (ANC) 1.45 - 7.50 k/uL 3.91 5.09 Lymph% % 40.7 31.8 Abs Lymph 1.00 - 4.00 k/uL 3.15 2.83 [place]% % 5.4 7.5 Abs [place] <0.87 k/uL 0.42 0.67 Eosin% % 2.2 2.5 Abs Eosin <0.46 k/uL 0.17 0.22 Baso% % 0.9 0.4 Abs Baso <0.11 k/uL 0.07 0.04 Immature Gran % % 0.3 0.4 IMMATURE GRANS (ABS) <0.10 k/uL <0.03 0.04 NRBC /100 WBC 0.0 0.0 Absolute nRBC <0.01 k/uL <0.01 <0.01 DTYPE Auto Auto Protein, Total 6.3 - 8.0 g/dL 6.6 6.6 Albumin 3.9 - 4.9 g/dL 3.9 4.0 Calcium 8.5 - 10.2 mg/dL 9.3 9.6 Bilirubin, Total 0.2 - 1.3 mg/dL 0.2 0.2 Alkaline Phosphatase 34 - 123 U/L 81 77 AST 13 - 35 U/L 19 27 ALT 7 - 38 U/L 5 (L) 10 Glucose 74 - 99 mg/dL 94 85 BUN 7 - 21 mg/dL 14 9 Creatinine 0.58 - 0.96 mg/dL 0.81 0.77 Sodium 136 - 144 mmol/L 142 140 Potassium 3.7 - 5.1 mmol/L 4.0 4.1 Chloride 97 - 105 mmol/L 109 (H) 105 CO2 22 - 30 mmol/L 25 25 Anion Gap 9 - 18 mmol/L 8 (L) 10 eGFR >=60 mL/min/1.73m 87 92 Cholesterol, Total <200 mg/dL 194 Triglyceride <150 mg/dL 124 HDL Cholesterol >39 mg/dL 37 (L) Non HDL Cholesterol <130 mg/dL 157 (H) Fasting Time hrs 12 VLDL Cholesterol <30 mg/dL 25 TC:HDL Ratio <5.10 5.24 (H) LDL Cholesterol <100 mg/dL 132 (H) LDL:HDL Ratio <2.54 3.57 (H) Creatinine, Ur Random (UCRR) 20.0 - 300.0 mg/dL 174.0 Albumin, Urine Random mg/L <12.0 Albumin/Creat Ratio <30 mg/g <7 HIV 12 Combo (Ag/Ab) Nonreactive Nonreactive HIV 1/2 Ab -- HIV Interpretation -- Hemoglobin A1C 4.3 - 5.6 % 5.7 (H) Estimated Average Glucose mg/dL 117 Vitamin B12 232 - 1,245 pg/mL 748 TSH 0.270 - 4.200 mIU/L 1.020 Free T4 0.9 - 1.7 ng/dL 1.0 WSR 0 - 20 mm/hr 15 CRP <0.9 mg/dL 0.8 documented in this encounterFult[facility]04-11-[facility]24 Instructions* Patient Instructions* Juju Talboti, BERNABE.REHAB NURSE - 07/02/2023 12:40 PM EDT Screening schedule The following prevention plan is recommended: Covid-19 Vaccine( season) Never done Mammogram Screening due on 07/17/2023 WHAT YOU CAN DO TO PREVENT FALLS Many falls can be prevented. By making some changes, you can lower your chances of falling. Four things YOU can do to prevent falls for you* and your caregiver 1. Begin a regular exercise program Exercise is one of the most important ways to lower your chances of falling. It makes you stronger and helps you feel better. Exercises that improve balance and coordination (like Gato Chi) are the most helpful. Lack of exercise leads to weakness and increases your chances of falling. Ask your doctor or health care provider about the best type of exercise program for you. 2. Have your health care provider review your medicines Have your doctor or pharmacist review all the medicines you take, even [id number]-[id number] medicines. As you get older, the way medicines work in your body can change. Some medicines, or combinations of medicines, can make you sleepy or dizzy andcan cause you to fall. 3. Have your vision checked Have your eyes checked by an eye doctor at least once a year. You may be wearing the wrong glasses or have a condition like glaucoma or cataracts that limits your vision. Poor vision can increase your chances of falling. 4. Make your home safer About half of all falls happen at home. To make your home safer: Remove things you can trip over (like papers, books, clothes, and shoes) from stairs and places where you walk. Remove small throw rugs or use double-sided tape to keep the rugs from slipping. Keep items you use often in cabinets you can reach easily without using a step stool. Have grab bars put in next to your toilet and in the tub or shower. Use non-slip mats in the bathtub and on shower floors. Improve the lighting in your home. As you get older, you need brighter lights to see well. Hang light-weight curtains or shades to reduce glare. Have handrails and lights put in on all staircases. Wear shoes both inside and outside the house. Avoid going barefoot or wearing slippers. For more information, contact: Centers for Disease Control and Prevention www.cdc.gov/injury * This information may not apply if you have certain medical conditions. documented in this encounterFulton [facility]04-11-2024 History of Present illness Narrative* Jovon Ortiz, PT - 07/02/2023 10:47 AM EDT Episode Visit Count: 3 Therapist That Will Accept/Oversee The Plan Of Care: Carey Dickens Start of Care Date: 06/05/23 Onset Date: 02/04/23 Plan of Care Certification Date: 06/05/23 Next Certification Due Date: 07/31/23 Patient Identified by Name and Date of : Yes REHABILITATION AND SPORTS THERAPY PHYSICAL THERAPY TREATMENT NOTE ASSESSMENT: Olga Lidia Tello tolerated the session with no issues. She demonstrated good understandingand acceptance of PNE sections. The patient will continue to benefit from ongoing skilled physical therapy to progress toward set goals. PLAN FOR NEXT VISIT: PNE SUBJECTIVE: The exercises are going well. Started working out this week. The face is not numb now but sometiemes when she wakes up she notices it. Pain: Pain Pain Level: 8 Pain Location: Neck, Shoulder - Left OBJECTIVE MEASURES WITH LEVEL OF FUNCTION: Allodynia over R upper trap with palpation TREATMENT: Self-Usp Management: 1: PNE (see note for details) 2: Discussed meditation technique of sitting in a quiet room trying to count to 10 without any invasive thoughts entering the mind Sensitive Nerves: Patient educated on the concept of the nervous system as the bodies alarm system, and the role of nociception to warn the body of danger. Peripheral nerve sensitization, hyperalgesia and allodynia were explained using metaphors to promote deep learning. Homework: Patient encouraged to identify personal yellow flags, and explore/identify activity limitations as a result of nervous system hypersensitivity. Calming Sensitive Nerves Patient was educated regarding endogenous mechanisms and strategies to increase the brain s production of chemicals which decrease pain, such as aerobic exercise and improved pain knowledge. The concepts of pacing, graded exposure, sore but safe , and hurt does not equal harm were discussed. Sleep hygiene and diaphragmatic breathing topics introduced to help calm the nervous system and reduce stress. Homework: Patient provided with tools to start exercise log and sleep hygiene log. Tame the beast and why I hurt resources discussed. Skilled Intervention: Skilled judgment in the selection of proper modification for activity of daily living/home management based on clinical presentation, deficits, and needs. Activity progression based on professional judgement. Billing Self-Care/Home Management Treatment Minutes: 39 Skilled Treatment Time Minutes (timed and untimed codes): 39 Total Session Time (minutes): 39 Session Start Time : 1048 Session Stop Time : 1127 Jovon Ortiz PT documented in this encounterFulton County [facility]04-09-2024 History of Present illness Narrative* Chirag Rosen[employer])Giuliana - 06/30/2023 10:57 AM EDT Olga Lidia Tello is identified through a medication adherence outreach initiative based on pharmacy claims data from [employer] (insurer) for Non-insulin DM medication(s). Patient is reviewed 06/30/23 due to medication adherence concerns with the following medications (name, strength, sig): Trulicity 4.5mg/0.5ml inject once weekly Per reconcile dispense, last fill date and days supply: last filled 05/02/23 for 56 day supply due 06/22/23 Contacted patient: No answer; left generic VM Outcome of review/outreach: (choose outcome source and status) - [facility] Giuliana Beard ([employer]) documented in this encounterFulton County [facility] Center04-02-2024 History of Present illness Narrative* Vernell Canela - 06/23/2023 2:57 PM EDT Olga Lidia Tello is identified through a medication adherence outreach initiative based on pharmacy claims data from [employer] (insurer) for Non-insulin DM medication(s). Patient is reviewed 06/23/23 due to medication adherence concerns with the following medications (name, strength, sig): trulicity, inject 4.5mg, once weekly Per data/report, last fill date and days supply: due 06/22/23 Per reconcile dispense, last fill date and days supply: filled 04/27/23 for 56 days Per call to pharmacy, last picked up date and days supply: n/a Contacted patient: No answer; left generic VM Outcome of review/outreach: (choose outcome source and status) -sent [employer] message Vernell Canela documented in this [facility]03-26-2024 Miscellaneous Notes* Telephone Encounter - Anne-Marie Vogt MA - 06/16/2023 1:12 PM EDT Surgery has been scheduled as requested. * Telephone Encounter - Anne-Marie Vogt MA - 06/16/2023 9:40 AM EDT Surgical request completed for right middle and ring trigger fingers at [facility] on 07/09/2023 with local anesthesia. Post op appointments have been scheduled and mailed to the patient. documented in this [facility]03-25-2024 History of Present illness Narrative* Lennie Mcdonald LPN - 06/15/2023 9:31 AM EDT Patient presents for Hepatitis B vaccine. Denies any problems at this time. Tolerated injection well. Lennie Mcdonald LPN documented in this [facility]03-25-2024 Miscellaneous Notes* Telephone Encounter - Riddhi Rivera PA-C - 06/15/2023 8:51 AM EDT Can we contact patient and get her scheduled for right ring and middle trigger finger releases. Shehad corticosteroid injections 06/07, so we will have to wait a month from that for surgery. Can do local or MAC, her choice. documented in this encounterFulton [facility]03-19-2024 Miscellaneous Notes* Telephone Encounter - Maine Fernando RN - 06/09/2023 12:18 PM EDT Deepak with [employer] called and reports the Pts insurance doesn't require a PA for 4 pens for 56days of the 4.5 mg/0.5 mL Trulicity. She states they were going to close this case. * Telephone Encounter - Ele Jesus LPN - 06/09/2023 9:47 AM EDT Electronic PA completed for trulcity. documented in this encounterFulton [facility] Center03-18-2024 Miscellaneous Notes* Telephone Encounter - Lulu Luciano MD - 06/08/2023 6:05 PM EDT Okayed * Telephone Encounter - Kathi Briones LPN - 06/08/2023 3:47 PM EDT Patient has been identified by name and date of : Yes, Provider Ankita Date 06/08/23 Time 3:48pm Patient phones for refill(s): Requested Prescriptions Pending Prescriptions Disp Refills dulaglutide (TRULICITY) 4.5 mg/0.5 mL pen injector 4 Each 3 Sig: Inject 4.5 mg subcutaneously one time a week. Date of last office visit in primary care: 05/04/2023 Date of next office visit in primary care: 06/06/2023 Please advise. Thank you. Kathi Briones LPN. documented in this encounterFulton [facility] Center03-18-2024 History of Present illness Narrative* Riddhi Rivera PA-C - 06/08/2023 3:22 PM EDTAssociated Order(s): Additional Injections: R ring A1; Additional Injections: R long A1 Post-Procedure Diagnose(s): Trigger ring finger of right hand; Trigger middle finger of right hand Riddhi Rivera PA-C Department of Orthopaedics Orthopaedics [address] [facility] [address] Dept: [phone] Dept June 08, [address] Pedro Patricia for an opinion regarding right ring and middle trigger fingers. My final recommendations will be communicated back to the requesting physician by way of shared Medical record or letter to requesting physician via [place] mail. CHIEF COMPLAINT: New and Trigger Finger of the Right Hand Ms. Olga Lidia Tello is a 52 year old female who presents with locking and catching in her right ring finger which has been bothering her for about the past month. Digit locks and clicks during day-to-day activities, she often wakes up with the digit held in flexion. Getting some similar symptoms in the right middle digit, right middle digit is sore but is not locking or catching quite as bad as thering digit. Patient reports that she has neuropathy in her hands and feet from her diabetes, she ambulates with the assistance of a cane which she carries in her right hand. ASSESSMENT: M65.331 Trigger middle finger of right hand (primary encounter diagnosis) M65.30 Trigger finger of right hand, unspecified finger M65.341 Trigger ring finger of right hand PLAN: Definitely developing a right ring trigger finger, she would like to try a corticosteroid injection for both the ring and middle digits today. Will also get her into some oval 8 splints that she can wear at bedtime. We briefly discussed her surgical options if locking catching persist. Ms. Olga Lidia Tello was advised as to contrast therapies and/or to take analgesics/anti-inflammatories as needed and all contraindications were reviewed. OBJECTIVE: Ms. Olga Lidia Tello is a pleasant 52 year old in no apparent distress. Gen:LMP 03/23/2023 nl development, obese, no deformities ENT: Normocephalic, normal hearing, moist mucosa CV: Pulses:Radial= 2+ and symmetric, capillary refill < 2 secs, no peripheral edema/varicosities Skin: no rash, bruising or lesions. Good turgor. Psych: cooperative and appropriate, alert and oriented x 3, good mood and affect. Musculoskeletal: Palpable nodule at the A1 jesús site of the right ring finger, right ring digit is locking and catching with flexion and extension. Some soreness over the A1 jesús site of the right middle digit, no locking or catching of the digit with flexion or extension. In addition to the comprehensive evaluation, assessment and plan outlined above, and as a distinct and separate element to the visit today, separate from a DME order of oval 8 , we have made the determination to proceed with an injection to aid in the management of the patient's condition. We discussed the risks, benefits, alternatives and expected outcomes of this injection in detail, and the patient agreed to proceed. The procedure was performed as detailed below. Additional Injections: R ring A1 for trigger finger Informed Consent Consent Obtained: Verbal [place] Protocol A moment to CARE was completed. SIGN IN Sign in communication not applicable due to emergent procedure. Personnel directly involved with the procedure wore the appropriate PPE. Special Equipment: N/A Patient/Surrogate Stated/Verified: Patient name, Date of , Relevant allergies and Intended procedure TIME OUT Intended patient and procedure match the source document(s). Consent documented and matches the intended procedure. Relevant labs, photos, and/or imaging studies have been reviewed. Correct side/site marked and visible. Medications required for procedure verified. No fire risk assessment and interventions applicable. No implant(s) inserted. 06/08/2023 3:24 PM The procedure site was prepped in the usual sterile fashion. Medications: 3 mg betamethasone acetate-betamethasone sodium phosphate 6 mg/mL Anesthetics: 0.5 mL lidocaine (PF) 10 mg/mL (1 %) Outcome: tolerated well, no immediate complications Post-injection instructions were reviewed with the patient and the patient voiced understanding of these instructions. SIGN OUT No instruments, equipment or retained foreign bodies applicable. Additional Injections: R long A1 for trigger finger Informed Consent Consent Obtained: Verbal [place] Protocol A moment to CARE was completed. SIGN IN Sign in communication not applicable due to emergent procedure. Personnel directly involved with the procedure wore the appropriate PPE. Special Equipment: N/A Patient/Surrogate Stated/Verified: Patient name, Date of , Relevant allergies and Intended procedure TIME OUT Intended patient and procedure match the source document(s). Consent documented and matches the intended procedure. Relevant labs, photos, and/or imaging studies have been reviewed. Correct side/site marked and visible. Medications required for procedure verified. No fire risk assessment and interventions applicable. No implant(s) inserted. 06/08/2023 3:24 PM The procedure site was prepped in the usual sterile fashion. Medications: 3 mg betamethasone acetate-betamethasone sodium phosphate 6 mg/mL Anesthetics: 0.5 mL lidocaine (PF) 10 mg/mL (1 %) Outcome: tolerated well, no immediate complications Post-injection instructions were reviewed with the patient and the patient voiced understanding of these instructions. SIGN OUT No instruments, equipment or retained foreign bodies applicable. Imaging: Deferred today. Supporting Subjective Information Below: Past Surgical History: PAST SURGICAL HISTORY Procedure Laterality Date CATARACT EXTRACTION HX Right 05/2015 COLONOSCOPY 09/15/2022 COLONOSCOPY FLX DX W/COLLJ SPEC WHEN PFRMD 08/22/2015 Colonoscopy (MAC) COLONOSCOPY SCREENING 2021 EGD 09/15/2022 EGD W/O [facility] SPEC VARICIES INJ 2021 ENDOMETRIAL BX W/WO ENDOCERVIX BX W/O DILAT SPX 06/01/2008 Irregular Menses, Menorrhagia and Thickened Lining ESOPHAGOGASTRODUODENOSCOPY TRANSORAL DIAGNOSTIC 08/22/2015 EGD (MAC) INSERTION OF IUD 07/2017 LAPAROSCOPY SURG CHOLECYSTECTOMY 08/19/2007 PAST SURGICAL HISTORY OF x 4 PAST SURGICAL HISTORY OF 2022 foot surgery, multiple bilat PAST SURGICAL HISTORY OF bilateral ankle fractures PAST SURGICAL HISTORY OF 06/30/2014 right 2nd toe arthroplasty with tenotomies 3rd, 4th, and 5th toe - [facility] [place] [facility]- Dr. Conteh PAST SURGICAL HISTORY OF Right 04/2015 retinal tear PAST SURGICAL HISTORY OF Right right knee surgery TONSILLECTOMY & ADENOIDECTOMY <AGE 11 Medications: Current Outpatient Medications Medication Sig sertraline (ZOLOFT) 50 mg tablet take 1 tablet by mouth once daily tiZANidine (ZANAFLEX) 4 mg tablet Take 1 tablet by mouth every 8 hours as needed. gabapentin (NEURONTIN) 800 mg tablet Take 1 tablet by mouth three times a day for 90 days. omeprazole (PRILOSEC) 40 mg capsule Take 1 capsule by mouth once daily. dulaglutide (TRULICITY) 4.5 mg/0.5 mL pen injector Inject 4.5 mg subcutaneously one time a week. cholecalciferol, Vitamin D3, (VITAMIN D3) 1,250 mcg (50,000 unit) cap capsule Take 1 capsule by mouth one time a week. topiramate (TOPAMAX) 50 mg tablet Take 1 tablet by mouth two times a day. Take 1 tab at night x1 week then twice daily. predniSONE (DELTASONE) 10 mg tablet Take 2 tabs po BID for 2 days then 1 tab po BID for 2 days then1/2 tab po BID for 2 days then 1/2 tab daily for 2 days then stop (Patient not taking: Reported on 06/08/2023) mupirocin (BACTROBAN) 2 % ointment Apply to affected area once daily. Lancing Device (LANCING DEVICE WITH LANCETS) misc Check blood sugar once daily Lancets lancets Test blood sugar(s) once daily. Dx: E11.9. New onset type 2 diabetes Insulin: No No current facility-administered medications for this visit. Allergies: Patient has no known allergies. ROS: General (negative for fatigue, malaise, weight loss/gain) HEENT (negative for headache, earache, recent vision changes, sinus pain, sore throat) Respiratory (no recent shortness of breath, hemoptysis) CV (negative for chest tightness, palpitations) Musculoskeletal (see HPI) Psych (no depression, anxiety) This note was partially generated using [employer] voice recognition system, and there may be some incorrect words, spellings, and punctuation that were not noted in checking the note before saving. Riddhi Rivera PA-C * Anne-Marie Vogt MA - 06/08/2023 1:03 PM EDT AMB ROOMING INTAKE FLOWSHEET DATA Pain Pain Level: 8 Pain Location: Abdomen-Left Upper Quadrant Description: Aching, Numbness, Radiating, Sharp, Sore, Stiffness, Tightness Duration Units: Weeks Frequency: Continuous Intervention/Comfort measure: Medication, Reposition, Relaxation, Heat Patient here today for right middle and ring trigger fingers. She is right hand dominant. documented in this encounterFulton [facility]03-15-2024 History of Present illness Narrative* Maninder Patino PT DPT - 06/05/2023 10:25 AM EDT Program_ID:[id number] Access Code: [email or web address] URL: [email or web address] Date: 06-05-2023 Prepared By: Maninder Rg Program Notes Exercises - Seated Gentle Upper Trapezius Stretch - 1 x daily - 7 x weekly - 2 sets - 2 reps - Seated Scapular Retraction - 1 x daily - 7 x weekly - 2 sets - 15 reps - Seated Cervical Retraction - 1 x daily - 7 x weekly - 2 sets - 10 reps * Maninder Patino PT DPT - 06/05/2023 9:55 AM EDT Images from the original note were not included. Episode Visit Count: 1 Therapist That Will Accept/Oversee The Plan Of Care: Carey Dickens Start of Care Date: 06/05/23 Onset Date: 02/04/23 Plan of Care Certification Date: 06/05/23 Next Certification Due Date: 07/31/23 Patient Identified by Name and Date of : Yes REHABILITATION AND SPORTS THERAPY PHYSICAL THERAPY EVALUATION PLAN OF CARE: Assessment: Olga Lidia Tello presents with diagnosis of neck pain with associated left arm radicular symptoms that interferes with lifting, carrying, pushing, pulling, cleaning, use hand with arm at shoulder level, reaching overhead, sleeping, driving . She presents with impairments in ADL's, balance,flexibility, gait, independence in exercise, overall function, posture, range of motion, sensation,strength, and symptom management. PROMIS (Patient-Reported Outcomes Measurement Information System)scores were reviewed and identified as a rehabilitation concern. Prognosis for therapy is Fair due to: clinical presentation, multiple co- morbidities, Prognosis may be improved by acuteness of injury. She will benefit from skilled therapy services to meet the goals established for this plan of care as noted below. Goals for Episode of Care: created on 06/05/23 through 07/31/23 [place] in home exercise program. Patient will decrease pain rating by 2 points to meet minimal clinical important difference for numeric pain rating scale. Patient will increase active ROM of left shoulder ER to symmetrical with right to allow pt to to improve performance of ADLs. Lift 5# overhead with decreased report of symptoms/pain in 8 weeks or less. Perform work at shoulder height for 10 minutes without increased pain to promote ease with cooking and folding laundry. Improve postural awareness. Restore pain free cervical ROM to WNL to allow for improved body mechanics. Drive with no aggravation of pain/symptoms. Sleep throughout the night without pain/symptoms. Patient Goals: Reduce pain, return to the gym Planned Interventions, Frequency, and Duration: Current Frequency: 1x/week Duration: 8 weeks Total Number of Visits Planned: 8 Planned Treatment Interventions: Therapeutic exercise (87734), Neuromuscular re- education ([id number]), Manual therapy (71104), Therapeutic activities (44906), Self- nursing home management (67345), Body Mechanics Training, E-Stim Attended/TENS (64142), E-Stim Unattended (25157), Patient/Family/Caregiver Education PLAN FOR NEXT VISIT: Assess response to HEP, progress DNF strength and jud- scapular strength Patient demonstrates good understanding of plan of care and treatment. The above goals and plan of care were discussed and agreed upon by patient/family. SUBJECTIVE: Patient presenting to PT for evaluation of neck and bilateral shoulder pain with associated left sided radiculopathy. She does note neuropathy in bilateral hands, but the radiculopathy occurs in the lateral arm. Onset of pain >1 month ago. She reports she has fallen 3-4 times in the last 4 months. Patient states her doctor said she tore some ligaments in her right shoulder after one of her falls, though that shoulder does not bother her. X-rays negative for fracture, arthritic changes noted. Patient Goals: Reduce pain, return to the gym Functional Limitations: lifting, carrying, pushing, pulling, cleaning, use hand with arm at shoulder level, reaching overhead, sleeping, driving Prior Level of Function: Independent with restrictions Independent with the following restrictions: Ambulates with SPC Relevant History Past Relevant Medical Conditions: Fibromyalgia, Falls, Neuropathy, Cardiac (TIA) Right or Left Handed: Right Employment: Medically Disabled Recreation / Current Exercise: Used to workout at a gym, has stopped due to a foot ulcer Intake Information: Prescription present Previous Treatment: Heat , Chiropractor Falls Interview: Two or more falls in the last year Falls Intervention: More thorough falls assessment to be performed Red Flags Vertebral Fracture Red Flags: Female Vertebral Fracture Clinical Reasoning: Proceed with caution due to the above (1- 2) risk factors Cancer Red Flags: Age >50 or <20 Cancer Clinical Reasoning: Proceed with caution Infection Clinical Reasoning: No identified risk factors. Cervical Arterial Dysfunction: Numbness - face, Nausea (MD aware of facial numbess) Cervical Arterial Dysfunction Clinical Reasoning: Proceed with caution Cervical Myelopathy: Age > 45 yo, Abnormal gait Cervical Myelopathy Diagnostic Rule: Proceed with caution (hoffmans and inverted supinator negative) Red Flags - Cervical Cancer Red Flags: Age >50 or <20 Cancer Clinical Reasoning: Proceed with caution Infection Clinical Reasoning: No identified risk factors. Cervical Arterial Dysfunction: Numbness - face, Nausea (MD aware of facial numbess) Cervical Arterial Dysfunction Clinical Reasoning: Proceed with caution Cervical Myelopathy: Age > 45 yo, Abnormal gait Cervical Myelopathy Diagnostic Rule: Proceed with caution (hoffmans and inverted supinator negative) Spine History Symptoms Location at Onset: Neck, Arm Symptoms Since Onset: Worsening Pain is Worse Always: Sitting Pain is Better Always: Lying Sleep Affected by Pain: Pain keeps from falling asleep, Pain awakens Pain: Pain Pain Level: 9 Pain Location: Neck, Shoulder - Left Post Treatment Pain Post Treatment Pain Location: Neck Post Treatment Pain Description: Sore PROMIS Scales 07/16/2022 05/20/2023 06/04/2023 Higher is Better Phys Func - Score 33 (moderate dysfunction) 33 (moderate dysfunction) Phys Func - Percentile 4 4 Self-Eff Symptom - Score 34 (Low) 35 (Low) Self-Eff Symptom - Percentile 5 7 06/04/2023 05/20/2023 07/16/2022 Higher is Better Phys Func - Score 33 (moderate dysfunction) 33 (moderate dysfunction) Phys Func - Percentile 4 4 Self-Eff Symptom - Score 35 (Low) 34 (Low) Self-Eff Symptom - Percentile 7 5 T-scores: mean of general population = 50. 5 points is clinically meaningfully difference Percentiles provide an indication of how the patient's score ranks in relation to the general population. Higher percentile rankings indicate better function/quality of life. 50th percentile is the average of the general population and indicates half of respondents had a worse score. OBJECTIVE MEASURES WITH LEVEL OF FUNCTION: Posture / Alignment Posture: Forward head, Rounded shoulders Effects of Posture Correction: Erect posture feels better. Spine Observations R Cervical Spine Palpation Tenderness: Upper trapezius, Levator scapulae, Paraspinals, Suboccipitals, Sternocleidomastoid, Scalenes L Cervical Spine Palpation Tenderness: Upper trapezius, Levator scapulae, Paraspinals, Suboccipitals, Sternocleidomastoid, Scalenes Sensation - Cervical Spine Cervical Spine Sensation: Dermatomes Cervical Spine Sensation - Dermatomes: (Dermatomes normal, though patient notes bilateral hand tingling due to neuropathy.) Cervical Spine ROM Cervical ROM : Measurement AROM Cervical Flexion AROM (degrees) : 45 Degrees Cervical Extension AROM (degrees) : 31 Degrees Cervical Side-Bend Right AROM (degrees): 34 Degrees Cervical Side-Bend Left AROM (degrees) : 26 Degrees (increased left side pain) Cervical Rotation Right AROM (degrees) : 50 Degrees Cervical Rotation Left AROM (degrees) : 62 Degrees UE AROM R UE AROM: Symmetrical bilat L UE AROM: Symmetrical bilat R Shoulder External Rotation (Functional): T4 L Shoulder External Rotation (Functional): C7 UE Flexibility Flexibility: Upper Trapezius R Upper Trapezius Flexibilty Comments: impaired L Upper Trapezius Flexibility Comments: impaired UE and Cervical Strength Strength Tested: Myotome Cervical/Shoulder R Shoulder Shrug (C4): 5/5 R Shoulder Abduction (C5): 5/5 R Shoulder External Rotation: 3+/5 R Elbow Extension (C7): 5/5 R Elbow Flexion (C6): 5/5 R Thumb Extension (C8): 4+/5 L Shoulder Shrug (C4): 5/5 L Shoulder Abduction (C5): 5/5 L Shoulder Internal Rotation: 5/5 L Shoulder External Rotation: 5/5 L Elbow Extension (C7): 5/5 L Elbow Flexion (C6): 5/5 L Thumb Extension (C8): 4+/5 Special Tests - Cervical Cervical Special Tests: Cervical Compression, Cervical Distraction, Spurling, Median Nerve (Sharp pursor test negative) Cervical Compression: Positive Cervical Distraction: Positive Spurling: Right Positive, Left Positive Median Nerve: Right Negative, Left Negative Gait Gait Observation: Ambulating with SPC. Increased hip ER bilaterally resulting in out toeing. Decreased gait speed. Functional Performance Test Results 5 Times Sit to Stand Test : 14.78 sec (backwards LOB on rep 4, used hands on rep 5) Education: Education Learning Preferences: Demonstration, Explanation, Performance, Printed Materials Barriers: None Learning/educational needs: Health promotion, Safety, Home exercise program, Plan of Care, Posture,Gait Training TREATMENT: PT Treatment Interventions: Therapeutic Exercise, Manual Therapy Evaluation Therapeutic Exercise: 1: *Cervical retraction x10 supine increased pain, x10 seated less painful 2: *Seated UT stretch x20 sec bilat 3: *Seated scapular retraction x10 4: Patient educated on rehabilitation process, cervical anatomy, emphasis on pain free movements, importance of HEP compliance, and goals for PT. Skilled Intervention: Patient was educated in proper exercise technique and purpose for exercises. Skilled judgment was used in selection of appropriate interventions. Provided written instruction for home exercise program to facilitate proper performance and compliance. Correct performance of therapeutic exercises was facilitated with verbal and visual cuing. Patient education as noted. Manual Therapy: 1: Manual traction to cervical spine for pain reduction x4 minutes Skilled Intervention: Manual skills to improve joint mobility, ROM, and decrease pain. Utilized anatomy knowledge of the therapist, and assessment of patient's response to intervention. Billing * Evaluation Low Complexity: 1 Unit Therapeutic Exercise Treatment Minutes: 12 Manual TherapyTreatment Minutes: 4 Skilled Treatment Time Minutes (timed and untimed codes): 37 Total Session Time (minutes): 37 Session Start Time : 954 Session Stop Time : 1031 Session shortened due to patient arriving 10 minutes late. Maninder Patino PT, DPT documented in this encounterF[facility]03-12-[facility]24 Miscellaneous Notes* Telephone Encounter - Kelly Sahni LPN - 06/02/2023 10:32 AM EDT Spoke to Olga Lidia, she is no longer taking Wellbutrin, she is currently taking Sertraline. Advised that RX was sent to [facility], 06/01/2023. Patient will pickup. Kelly Sahni LPN documented in this encounterFulton [facility]03-11-2024 Miscellaneous Notes* Telephone Encounter - Lulu Luciano MD - 06/01/2023 7:26 PM EDT Okayed * Telephone Encounter - Kelly Sahni LPN - 06/01/2023 4:32 PM EDT Patient has been identified by name and date of : Yes Patient phones for refill(s): Requested Prescriptions Pending Prescriptions Disp Refills sertraline (ZOLOFT) 50 mg tablet [Pharmacy Med Name: SERTRALINE HCL 50 MG TABLET] 90 tablet 0 Sig: take 1 tablet by mouth once daily Date of last office visit in primary care: 05/04/2023 Date of next office visit in primary care: 07/02/2023 Please advise. Thank you. Kelly Sahni LPN. documented in this encounterFulton [facility]03-04-2024 History of Present illness Narrative* Edgar Montejo MD - 05/25/2023 1:30 PM EST [facility] Date: May 25, 2023 - 1:03 PM Olga Lidia Tello is seen in consultation requested by Pedro Patricia for an opinion regarding neck pain.My final recommendations will be communicated back to the requesting physician by way of shared medical record or via US mail. Chief Complaint: neck pain SUBJECTIVE: Olga Lidia Tello, is a 52 year old female who presents with neck pain. The pain started 2 months ago, with no specific injury but states have fallen 3 times.. The pain onset was gradual. The patient states that the current pain is persistent. Her pain is located in the bilateral posterior cervical region and involves bilateral shoulder regions. The predominant pain is the neck. The pain is described as aching, stiff, numbness, throbbing, and tingling. The pain intensity is rated 9. The pain is exacerbated by lifting, carrying, and reaching and relieved by massage and hot water. Symptoms interfere with physical activity, sleeping, reaching for shelves, and lifting. 60% pain in spine vs 40% (radiating) pain in the extremity. Litigation: No. Worker's Compensation: No. Prior pain treatment has included: Medication: Tizanidine, gabapentin, oral steroids ALLERGIES No Known Allergies Current Medications: Pain medications reviewed and reconciled in the medication list: Yes. Current Outpatient Medications Medication Sig tiZANidine (ZANAFLEX) 4 mg tablet Take 1 tablet by mouth every 8 hours as needed. gabapentin (NEURONTIN) 800 mg tablet Take 1 tablet by mouth three times a day for 90 days. predniSONE (DELTASONE) 10 mg tablet Take 2 tabs po BID for 2 days then 1 tab po BID for 2 days then1/2 tab po BID for 2 days then 1/2 tab daily for 2 days then stop mupirocin (BACTROBAN) 2 % ointment Apply to affected area once daily. omeprazole (PRILOSEC) 40 mg capsule Take 1 capsule by mouth once daily. dulaglutide (TRULICITY) 4.5 mg/0.5 mL pen injector Inject 4.5 mg subcutaneously one time a week. cholecalciferol, Vitamin D3, (VITAMIN D3) 1,250 mcg (50,000 unit) cap capsule Take 1 capsule by mouth one time a week. topiramate (TOPAMAX) 50 mg tablet Take 1 tablet by mouth two times a day. Take 1 tab at night x1 week then twice daily. sertraline (ZOLOFT) 50 mg tablet Take 1 tablet by mouth once daily. Lancing Device (LANCING DEVICE WITH LANCETS[place] [facility] [place] sugar once daily Lancets lancets Test blood sugar(s) once daily. Dx: E11.9. New onset type 2 diabetes Insulin: No No current facility-administered medications for this visit. 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 Alsea willcheck MRA in 2013 Benign paroxysmal positional vertigo not an issue since 2006 Cataract Chronic cholecystitis 2007 Diabetes (HCC) Dizziness and giddiness Elevated AST (SGOT) 10/16/2011 Esophageal reflux Excessive or frequent menstruation 06/19/2008 Family history of cardiac disorder in mother 12/23/2013 Fibromyalgia Hallux valgus (acquired) 01/12/2006 Hx-TIA (transient ischemic attack) January 2012 [place] Mixed hyperlipidemia 03/19/2006 Resolved Morbid obesity with BMI of 40.0-44.9, adult (HCC) 09/12/2014 Myalgia and myositis, unspecified Neuropathy Dr. Schmidt managing WILTON (obstructive sleep apnea) non compliant with CPAP Other enthesopathy of ankle and tarsus 01/12/2006 Other osteoporosis Restless leg syndrome 08/16/2015 Dr. Schmidt managing Retinal detachment 08/17/2015 PAST SURGICAL HISTORY Procedure Laterality Date CATARACT EXTRACTION HX Right 05/2015 COLONOSCOPY 09/15/2022 COLONOSCOPY FLX DX W/COLLJ SPEC WHEN PFRMD 08/22/2015 Colonoscopy (MAC) COLONOSCOPY SCREENING 2021 EGD 09/15/2022 EGD W/O [facility] SPEC VARICIES INJ 2021 ENDOMETRIAL BX W/WO ENDOCERVIX BX W/O DILAT SPX 06/01/2008 Irregular Menses, Menorrhagia and Thickened Lining ESOPHAGOGASTRODUODENOSCOPY TRANSORAL DIAGNOSTIC 08/22/2015 EGD (MAC) INSERTION OF IUD 07/2017 LAPAROSCOPY SURG CHOLECYSTECTOMY 08/19/2007 PAST SURGICAL HISTORY OF x 4 PAST SURGICAL HISTORY OF 2022 foot surgery, multiple bilat PAST SURGICAL HISTORY OF bilateral ankle fractures PAST SURGICAL HISTORY OF 06/30/2014 right 2nd toe arthroplasty with tenotomies 3rd, 4th, and 5th toe - [facility] [facility]- Dr. Conteh PAST SURGICAL HISTORY OF Right 04/2015 retinal tear PAST SURGICAL HISTORY OF Right right knee surgery TONSILLECTOMY & ADENOIDECTOMY <AGE 11 FAMILY HISTORY Problem Relation Age of Onset Heart Mother other (fibroids) Mother Heart Father Arthritis Father Colon Cancer Father diagnosed at 74yo; has colostomy Alzheimer's Disease Father Psychiatry Maternal Grandmother Suicide Cancer Paternal Grandmother Breast Cancer Paternal Aunt Brain Cancer Paternal Aunt Uterine cancer Social History: Alcohol Use: Not Currently Tobacco Use: Never Drug Use: No Employer And Job Title: No employer specified ([employer]) Years Of Education Completed: 12 years Marital Status: with 4 children REVIEW OF SYSTEMS: Constitutional: (-) Fever (-) Night Sweats (-) Weight Gain (-) Weight Loss (-) Fatigue Cardiovascular: (-) Chest Pain (-) Palpitations (-) Lightheadedness (-) Swelling of Ankles (-) Hx Heart Surgery Respiratory: (-) Shortness of Breath (-) Cough (-) Wheezing (+) Snoring Gastrointestinal: (-) Incontinence (-) Abdominal Pain (-) Diarrhea (-) Constipation (-) Nausea/Vomiting (-) Heart Burn Endocrine: (-) Thyroid Disorder (+) Diabetes Hematologic: (-) Prolonged Bleeding (-) Easy Bruising Genitourinary: (-) Incontinence (-) Frequency (+) Urinary Urgency Skin: (-) Rashes (-) Itching (-) Other Lesions Neurologic: (-) Headache (-) Double Vision (-) Confusion (-) Paralysis (-) Vertigo (-) Syncope Psychiatric: (+) Depression (-) Anxiety (-) Delusions (-) Hallucinations (-) Suicidal Thoughts OARRS Report reviewed: Yes Narcotic Agreement reviewed and signed?: N/A Baseline Urine Toxicology obtained: N/A Urine Panel: No results found for: UQCANN, UQBNZL, NMZ2DRS, UQAMPH, UQMAMP, UQBUPRE, UQNORBUP, UQMTHD, UQEDDP, UQTRAM, UQDTRM, UQFNTL, UQNFTL, UQCODE, UQMORP, UQDCDN, UQHCOD,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 Take 1 tab at night x1 week then twice daily. tiZANidine (ZANAFLEX) 4 mg tablet take 1 tablet by mouth every 8 hours if needed sertraline (ZOLOFT) 50 mg tablet Take 1 tablet by mouth once daily. gabapentin (NEURONTIN) 800 mg tablet Take 1 tablet by mouth three times a day for 90 days. Lancing Device [place]LANCING [place] WITH [place]ETS[place] [facility] [place] blood sugar once daily Lancets lancets Test blood sugar(s) once daily. Dx: E11.9. New onset type 2 diabetes Insulin: No No current facility-administered medications for this visit. ALLERGIES No Known Allergies PAST SURGICAL HISTORY Procedure Laterality Date CATARACT EXTRACTION HX Right 05/2015 COLONOSCOPY 09/15/2022 COLONOSCOPY FLX DX W/COLLJ SPEC WHEN PFRMD 08/22/2015 Colonoscopy (MAC) COLONOSCOPY SCREENING 2021 [facility] 2021 ENDOMETRIAL BX W/WO ENDOCERVIX BX W/O DILAT SPX 06/01/2008 Irregular Menses, Menorrhagia and Thickened Lining ESOPHAGOGASTRODUODENOSCOPY TRANSORAL DIAGNOSTIC 08/22/2015 EGD (MAC) INSERTION OF IUD 07/2017 LAPAROSCOPY SURG CHOLECYSTECTOMY 08/19/2007 PAST SURGICAL HISTORY OF x 4 PAST SURGICAL HISTORY OF 2022 foot surgery, multiple bilat PAST SURGICAL HISTORY OF bilateral ankle fractures PAST SURGICAL HISTORY OF 06/30/2014 right 2nd toe arthroplasty with tenotomies 3rd, 4th, and 5th toe - [facility]- Dr. Conteh PAST SURGICAL HISTORY OF Right 04/2015 retinal tear PAST SURGICAL HISTORY OF Right right knee surgery TONSILLECTOMY & ADENOIDECTOMY <AGE 11 Physical Exam: OBJECTIVE: Constitutional: Pt is a well developed 52 year old female who is alert, oriented, cooperative and in no apparent distress. Eyes: Following during examination. No redness or drainage. Respiratory: RR normal and nonlabored. Even breathing. No evidence of distress. Psychology: Patient is engaged during conversation. Normal affect and mood. Does not appear depressed or anxious. NVSI unchanged from previous visit. 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 The etiology of this ulceration is adductovarus deformity of left 5th toe. Today, I debrided the ulceration of nonviable tissue with tissue nippers and 15 blade.Total debridement was 1 mm x 3 mm. Ulceration is very small. Will switch to a small amount of topical antibiotic. Discussed use of silvergel but this was not covered by insurance. Will have her applytopical antibiotic and continue with surgical shoe. If ulceration were to become moist, switch to aquacel. Discussed possible surgical intervention for chronic ulceration including arthroplasty of left 5th toe. For now, she will continue with conservative care Callus to right 3rd toe, right hallux and left 1st metatarsal was reduced with sakina Rizzo DPM * Trish Barnett LPN - 05/01/2023 10:07 AM EST AMB ROOMING INTAKE FLOWSHEET DATA Pain Pain Level: 5 Pain Location: Toe Description: Sore Duration Units: Weeks Frequency: Intermittent Intervention/Comfort measure: Reposition, Relaxation Patient presents with: Left Foot - Ulcer, Established Patient, Follow Up, Pain Trish Barnett LPN documented in this encounterFulton County Health Center02-07-2024 History of Present illness Narrative* Jannet Michaud RT(R) - 04/29/2023 8:40 AM EST Radiology Service Progress Note PATIENT NAME: Olga Lidia Tello DATE OF SERVICE: April 29, 2023 TIME: 9:07 AM PATIENT IDENTITY VERIFICATION COMPLETED USING TWO (2) IDENTIFIERS: Name and Date of confirmedby patient verbally. FALL SCREENING: Has the patient had 2 falls in the last year or 1 fall with injury or currently using an Ambulatory Assistive Device (Walker, Cane, Wheelchair, Crutches, etc.)? Yes, Patient High Riskfor Falls What interventions were put in place to prevent falls during this visit? Instructed Patient to Callfor Help if Needed, Offered Assistance with Transfers/Clothing, Instructed Patient to Remain Seated(Not on Exam Table) Until Exam, and Increased Observations by Caregivers PATIENT GENDER DATA: Female. status: : No status: NO. PATIENT RELEVANT IMPLANT DATA REVIEWED: Yes PATIENT PRESENTS WITH AN IMPLANTABLE OR ATTACHED OPERATING ROOM AIDE: No RADIOLOGY DEPARTMENT: MR; Exam(s) Completed: Upper MSK: Shoulder, right PERIPHERAL IV DATA: Not applicable SIGNED BY: RT Yareli(R) April 29, 2023 9:07 AM documented in this encounterFulton County Health Center02-06-2024 Miscellaneous Notes* Telephone Encounter - Kelly Sahni LPN - 04/28/2023 11:43 AM EST Spoke to [facility], RX for Trulicity written 04/06/2023 was filled yesterday, waiting for Patient to pickup. Pharmacy was able to run RX. Kelly Sahni LPN documented in this encounterFulton County Health Center02-01-2024 Miscellaneous Notes* Telephone Encounter - Hoda English RN - 04/23/2023 5:36 PM EST Spoke with patient. Given message from provider's office. Notified of script sent to pharmacy. Patient verbalizes understanding. Hoda English RN * Telephone Encounter - Lulu Luciano MD - 04/23/2023 5:30 PM EST No record of prescription for meds for anxiety like Xanax, Valium or Ativan. The following approved medication requests have been transmitted electronically. Requested Prescriptions Signed Prescriptions Disp Refills ALPRAZolam (XANAX) 0.5 mg tablet 2 tablet 0 Sig: Take an hour prior to MRI. May repeat dose prior to MRI anxiety not adequately controlled. Authorizing Provider: LULU LUCIANO MD * Telephone Encounter - Melisa Muniz LPN - 04/23/2023 10:02 AM EST Patient calling she forgot to ask for medication before her MRI, she is claustrophobic. Patient is rescheduling the MRI since was not aware provider is out of office today. Patient uses [facility] for her pharmacy. Please advise documented in this encounterFulton County Health Center01-06-2024 Hospital Discharge instructions Patient Education 03/28/2023 10:20:52 Dysfunctional Uterine Bleeding Dysfunctional Uterine Bleeding Dysfunctional uterine bleeding, also called abnormal uterine bleeding, is a condition in which bleeding is abnormal and occurs at unexpected times of the month. This happens because of changes in thehormones that help control a woman s menstrual cycle each month. The bleeding may be heavier or support service tech than normal. If you have heavy bleeding often, this can leadto a problem called anemia. With anemia, your red blood cell count is too low. Red blood cells helpcarry oxygen throughout your body. Severe anemia may cause you to look pale and feel very weak or tired. You might also become short of breath easily. To treat dysfunctional uterine bleeding, medicines are often tried first. If these don t help, or if you have additional symptoms or have reached menopause, further testing and treatments may be needed. Discuss all of your options with your provider. Home care Medicines If you re prescribed medicines, be sure to take them as directed. Some of the more common medicinesyou may be prescribed include: Hormone therapy (Options include most methods of hormonal control such as pills, shots, or a hormone-releasing IUD) Nonsteroidal anti-inflammatory drugs (NSAIDs), such as ibuprofen Iron supplements, if you have anemia General care Get plenty of rest if you tire easily. Avoid heavy exertion. To help relieve pain or cramping that may occur with bleeding, try using a heating pad on the lowerbelly or back. A warm bath may also help. Follow-up care Follow up with your healthcare provider, or as directed. When to seek medical advice Call your healthcare provider right away if: Bleeding becomes heavy (soaking 1 pad or tampon every hour for 3 hours) Increased abdominal pain Irregular bleeding worsens or does not get better even with treatment Fever of 100.4 F (38 C) or higher, or as directed by your provider Signs of anemia, such as pale skin, extreme fatigue or weakness, or shortness of breath Dizziness or fainting [id number] [employer] [address] [place] [address], [place] [address]. All rights reserved. This information is not intended as a substitute for professional medical care. Always follow yourhealthcare professional's instructions. Follow Up Care 03/28/2023 08:48:16 With:LULU LUCIANO MD Address: [address] [facility] [place] [id number]- When:2-4 days [facility] 01-06-2024 Emergency department Discharge summary Discharge Instructions Thank you for allowing [facility] to assist you with your healthcare needs. The following is importantdischarge information regarding your hospital visit. Diagnosis from Today's Visit Vaginal bleeding What to Do Next Instructions from Your Care Team No qualifying data available. Post Acute Orders No qualifying data available. You Need to Schedule the Following Appointments Follow Up with LULU LUCIANO MD When Within 2-4 days Where: [address] [facility] [place] [address] Allergies NKA Medications Please ask your primary doctor or pharmacist before taking any other medication not listed, including over the counter drugs, herbal medications, vitamins and or supplements as they may interact withyour home medications. What How Much When Instructions Last Dose Unchanged cholecalciferol (D3-50 (50,000 units) oral capsule) 1 cap by mouth Every week Unchanged dulaglutide (Trulicity Pen 1.5 mg/ 0.5 mL subcutaneous solution) 0.5 Milliliter Subcutaneous Every week Unchanged DULoxetine (DULoxetine 60 mg oral delayed release capsule) 2 cap by mouth Once a day Unchanged ferrous sulfate (ferrous sulfate 300 mg oral tablet) 1 tab(s) by mouth Every day Unchanged metFORMIN (metFORMIN 1000 mg oral tablet) 1 tab(s) by mouth Two (2) times a day Unchanged multivitamin (Multivitamin) 1 tab(s) by mouth Every day Unchanged omega-3 polyunsaturated fatty acids ([place]-3 1000 mg oral capsule) 1 cap by mouth Four (4) times a day Unchanged omeprazole 20 Milligram by mouth Once a day Unchanged pregabalin (Lyrica 300 mg oral capsule) 1 cap by mouth Four (4) times a day Please take this list to your next doctor s visit. Bring all medications you take, including over the counter medications, herbals and other supplements with you to your doctor s visit. Patients and families are reminded to discard old lists and to update any records with all medication providers or retail pharmacies. Education Materials Dysfunctional Uterine Bleeding Dysfunctional uterine bleeding, also called abnormal uterine bleeding, is a condition in which bleeding is abnormal and occurs at unexpected times of the month. This happens because of changes in thehormones that help control a woman s menstrual cycle each month. The bleeding may be heavier or support service tech than normal. If you have heavy bleeding often, this can leadto a problem called anemia. With anemia, your red blood cell count is too low. Red blood cells helpcarry oxygen throughout your body. Severe anemia may cause you to look pale and feel very weak or tired. You might also become short of breath easily. To treat dysfunctional uterine bleeding, medicines are often tried first. If these don t help, or if you have additional symptoms or have reached menopause, further testing and treatments may be needed. Discuss all of your options with your provider. Home care Medicines If you re prescribed medicines, be sure to take them as directed. Some of the more common medicinesyou may be prescribed include: Hormone therapy (Options include most methods of hormonal control such as pills, shots, or a hormone-releasing IUD) Nonsteroidal anti-inflammatory drugs (NSAIDs), such as ibuprofen Iron supplements, if you have anemia General care Get plenty of rest if you tire easily. Avoid heavy exertion. To help relieve pain or cramping that may occur with bleeding, try using a heating pad on the lowerbelly or back. A warm bath may also help. Follow-up care Follow up with your healthcare provider, or as directed. When to seek medical advice Call your healthcare provider right away if: Bleeding becomes heavy (soaking 1 pad or tampon every hour for 3 hours) Increased abdominal pain Irregular bleeding worsens or does not get better even with treatment Fever of 100.4 F (38 C) or higher, or as directed by your provider Signs of anemia, such as pale skin, extreme fatigue or weakness, or shortness of breath Dizziness or fainting [id number] [employer] [address] [place] [address], [place] [address]. All rights reserved. This information is not intended as a substitute for professional medical care. Always follow yourhealthcare professional's instructions. Additional Information VACCINATE! IT SAVES LIVES! Members of the community who have not yet received the COVID-19 vaccine and would like to receive it can visit one of [facility] vaccine clinics. There are many vaccine clinic locations within the [facility]. For locations and available times, please visit www.[email or web address].[email or web address]/. It is important to note that some COVID mobile vaccine clinics are held outdoors and may be canceled in rainy or stormy conditions. To learn more about pediatric vaccinations (ages 5-11), we invite you to visit the [facility] webpage. https://www.[email or web address]/[email or web address] stions.htmlTo learn more about the COVID-19 vaccine, we invite you to visit the CDC website for a list of frequently asked questions. https://www.cdc.gov/coronavirus/2019-ncov/vaccines/faq.html [facility] Patient Portal Access Instructions: Stay connected with your healthcare team and access your personal medical information anytime with the [employer] Patient Portal. If you would like a full copy of your medical records please contact the [facility] Medical Records Department Thursday through Thursday between 8a.m. and 4:30p.m. Please follow the directions below to access the portal: 1.Access the email account you provided upon registration to the hospital.2.Look for an invitation email from [facility].3.Open the email and access the invitation link: Accept Invitation to [employer]4.Fill in the required gonzalez to create your account. Sign into www.[employer] with your username and password that you created in the above steps to stay up to date. You can then view a summary of results, a summary of your visits, and the ability to download your summaries to your computer or send the information securely to a physician. Remember that your healthcare information is confidential, so carefully consider who you will allow to register on the [employer] Patient Portal for access to your information. You can also access the [employer] Patient Portal on the [employer]. Simply click on Health Records under [employer] and then click on the [employer] logo. HOW TO SAFELY DISPOSE OF PRESCRIPTION MEDICATIONS Please use one of the following methods to safely dispose of your unused medications. 1.Use a drug disposal kit: the drug disposal pouch allows you to safely discard your old and unuseddrugs. Ask your nurse to give you one when you are discharged.2.Visit a local take-back location: Many local pharmacies and police departments have programs that collect old and unwanted prescriptiondrugs. Call your local pharmacy or go to http://Aula 7.[employer] Domain/3F0Fl6h to find one close to you.3.Make use of household items: Use cat litter or old coffee grounds to dispose medications if other options arenot available. Mix your drugs with these household products, seal them in an airtight container andthrow it into the garbage. Call [facility]: [phone] to be sure your drugs can be disposed of in this way. Some medicines may require a different approach.4.Never flush your medications down the toilet. IF YOU HAVE BEEN PRESCRIBED AN OPIOIDS FOR PAIN If you have been prescribed an opioid (such as hydrocodone, oxycodone or morphine), it is critical to understand the possible side effects and risks of opioid pain medications. Even when taken as directed, opioids can have several side effects including: Tolerance, meaning you might need to take more of a medication for the same pain relief. Nausea, vomiting and/or constipation. Sleepiness, dizziness, dry mouth, confusion, depression or itching. Physical dependence, meaning you have withdrawal symptoms when a medication is stopped ? this can develop within a few days. KNOW YOUR RESPONSIBILITIES It is important to know exactly how much and how often to take the opioid pain medications you are prescribed. Never take opioids in higher amounts or more often than prescribed. Do not combine opioids with alcohol or other drugs that cause drowsiness, such as benzodiazepines, also known as benzos,including diazepam and alprazolam, muscle relaxants or sleep aids. Never sell or share prescriptionopioids. This is illegal. Store opioids in a secure place and out of reach of others (including children, family, friends and visitors). The last page(s) of this document has been signed and retained as a CHART COPY Signatures Patient Education Materials Dysfunctional Uterine Bleeding Medication Leaflets My discharge plan and instructions have been reviewed and explained to me and ELISHA Byers LINDA K understand my current condition and have read and understand these discharge instructions. I have received a written copy of the plan/instructions. If I have questions, I am aware that I should contact my doctor. Patient/Pharmacy Care Coordinator Signature: Date/Time: Relationship to Patient: Witness Name/Signature: Date/Time: [facility]12-23-2023 Hospital Discharge instructions Patient Education 03/14/2023 19:41:35 Tizanidine tablets or capsules Tizanidine tablets or capsules What is this medicine? TIZANIDINE (rianna davis) helps to relieve muscle spasms. It may be used to help in the treatmentof multiple sclerosis and spinal cord injury. How should I use this medicine? Take this medicine by mouth with a full glass of water. Take this medicine on an empty stomach, at least 30 minutes before or 2 hours after food. Do not take with food unless you talk with your doctor. Follow the directions on the prescription label. Take your medicine at regular intervals. Do not take your medicine more often than directed. Do not stop taking except on your doctor's advice. Suddenly stopping the medicine can be very dangerous. Talk to your natural sciences professor regarding the use of this medicine in children. Patients over 65 years old may have a stronger reaction and need a smaller dose. What side effects may I notice from receiving this medicine? Side effects that you should report to your doctor or health career and technology education teacher as soon as possible: allergic reactions like skin rash, itching or hives, swelling of the face, lips, or tongue breathing problems hallucinations signs and symptoms of liver injury like dark yellow or brown urine; general ill feeling or flu-likesymptoms; light-colored stools; loss of appetite; nausea; right upper quadrant belly pain; unusually weak or tired; yellowing of the eyes or skin signs and symptoms of low blood pressure like dizziness; feeling faint or lightheaded, falls; unusually weak or tired unusually slow heartbeat unusually weak or tired Side effects that usually do not require medical attention (report to your doctor or health career and technology education teacher if they continue or are bothersome): blurred vision constipation dizziness dry mouth tiredness What may interact with this medicine? Do not take this medicine with any of the following medications: ciprofloxacin fluvoxamine narcotic medicines for cough thiabendazole This medicine may also interact with the following medications: acyclovir alcohol antihistamines for allergy, cough, and cold baclofen certain medicines for anxiety or sleep certain medicines for blood pressure, heart disease, irregular heartbeat certain medicines for depression like amitriptyline, fluoxetine, sertraline certain medicines for seizures like phenobarbital, primidone certain medicines for stomach problems like cimetidine, famotidine female hormones, like estrogens or progestins and control pills, patches, rings, or injections general anesthetics like halothane, isoflurane, methoxyflurane, propofol local anesthetics like lidocaine, pramoxine, tetracaine medicines that relax muscles for surgery narcotic medicines for pain phenothiazines like chlorpromazine, mesoridazine, prochlorperazine ticlopidine zileuton What if I miss a dose? If you miss a dose, take it as soon as you can. If it is almost time for your next dose, take only that dose. Do not take double or extra doses. Where should I keep my medicine? Keep out of the reach of children. Store at room temperature between 15 and 30 degrees C (59 and 86 degrees F). Throw away any unused medicine after the expiration date. What should I tell my health care provider before I take this medicine? They need to know if you have any of these conditions: kidney disease liver disease low blood pressure mental disorder an unusual or allergic reaction to tizanidine, other medicines, lactose (tablets only), foods, dyes, or preservatives or trying to get breast-feeding What should I watch for while using this medicine? Tell your doctor or health career and technology education teacher if your symptoms do not start to get better or if theyget worse. You may get drowsy or dizzy. Do not drive, use machinery, or do anything that needs mental alertness until you know how this medicine affects you. Do not stand or sit up quickly, especially if you are an older patient. This reduces the risk of dizzy or fainting spells. Alcohol may interfere with the effect of this medicine. Avoid alcoholic drinks. If you are taking another medicine that also causes drowsiness, you may have more side effects. Give your health care provider a list of all medicines you use. Your doctor will tell you how much medicine to take. Do not take more medicine than directed. Call emergency for help if you have problems breathing or unusual sleepiness. Your mouth may get dry. Chewing sugarless gum or sucking hard candy, and drinking plenty of water may help. Contact your doctor if the problem does not go away or is severe. NOTE:This sheet is a summary. It may not cover all possible information. If you have questions about this medicine, talk to your doctor, pharmacist, or health care provider. Copyright 2019 [employer] Follow Up Care 03/14/2023 18:57:29 With:LULU LUCIANO MD Address: [address] [place] [id number]- When:2-4 days [facility] 12-23-2023 Note Discharge Instructions Thank you for allowing [facility] to assist you with your healthcare needs. The following is importantdischarge information regarding your hospital visit. Diagnosis from Today's Visit Accidental Medication overdose What to Do Next Instructions from Your Care Team No qualifying data available. Post Acute Orders No qualifying data available. You Need to Schedule the Following Appointments Follow Up with LULU LUCIANO MD When Within 2-4 days Where: [address] [place] [id number]- Allergies NKA Medications Please ask your primary doctor or pharmacist before taking any other medication not listed, including over the counter drugs, herbal medications, vitamins and or supplements as they may interact withyour home medications. What How Much When Instructions Last Dose Unchanged cholecalciferol (D3-50 (50,000 units) oral capsule) 1 cap by mouth Every week Unchanged dulaglutide (Trulicity Pen 1.5 mg/ 0.5 mL subcutaneous solution) 0.5 Milliliter Subcutaneous Every week Unchanged DULoxetine (DULoxetine 60 mg oral delayed release capsule) 2 cap by mouth Once a day Unchanged ferrous sulfate (ferrous sulfate 300 mg oral tablet) 1 tab(s) by mouth Every day Unchanged metFORMIN (metFORMIN 1000 mg oral tablet) 1 tab(s) by mouth Two (2) times a day Unchanged multivitamin (Multivitamin) 1 tab(s) by mouth Every day Unchanged omega-3 polyunsaturated fatty acids ([place]-3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 Depression, recurrent (HCC) - ICD9: 296.30, ICD10: F33.9 Stable, improved. - AMITRIPTYLINE 10 MG TABLET 6. Obesity (BMI 30-39.9) - ICD9: 278.00, ICD10: E66.9 Weight decreasing - Behavioral intervention, - Pharmacological intervention, and - Continue current medications Portions of this note have been entered by ancillary staff. I have reviewed and when necessary edited, so that they are an adequate record of my encounter with this patient Please note that parts of this document were created using voice recognition software and therefore may contain grammatical errors. Patient verbalizes understanding of instructions from today's visit and in agreement with treatmentplan. Questions answered. Agrees to call the office if questions, concerns of issues with acute symptoms not improving or if they worsen. See diagnoses and orders for additional plan(s). Allergies and medications were reviewed, list was updated, and refills given if needed. Past medical, surgical, social, and family history reviewed and updated as appropriate. Encouraged proper diet & exercise as well as compliance with taking medications. Age- appropriate health preventative measures were discussed. Return in about 6 weeks (around 03/09/2023) for recheck on new medication.. Pedro Patricia APRN-MARIVEL documented in this encounterFulton [facility]10-26-2023 History of Present illness Narrative* Charlie Rizzo - 01/15/2023 12:21 PM EDT FOLLOW UP PODIATRIC OFFICE VISIT Chief Complaint: This 52 year old who presents for follow up:right foot ulceration Patient presents to clinic for follow-up right foot ulceration No complaints Has yet to get diabetic shoes PAIN EVALUATION No data found in the last 1 encounters. Hemoglobin A1C Date Value Ref Range Status 07/15/2022 6.2 (H) 4.3 - 5.6 % Final Comment: [place] [employer] guidelines indicate that patients with HgbA1c in the range 5.7-6.4% are at increased risk for development of diabetes, and intervention by lifestyle modification may be beneficial. HgbA1c greater or equal to 6.5% is considered diagnostic of diabetes. 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 Talha gannon MRA in 2012 Benign paroxysmal positional vertigo not an issue since 2006 Cataract Chronic cholecystitis 2008 Diabetes (HCC) Dizziness and giddiness Elevated AST (SGOT) 10/16/2011 Esophageal reflux Excessive or frequent menstruation 06/19/2008 Family history of cardiac disorder in mother 12/23/2013 Fibromyalgia Hallux valgus (acquired) 01/12/2006 Hx-TIA (transient ischemic attack) January 2012 [place] Mixed hyperlipidemia 03/19/2006 Resolved Morbid obesity with BMI of 40.0-44.9, adult ([facility]) 09/12/2014 Myalgia and myositis, unspecified Neuropathy Dr. Schmidt managing WILTON (obstructive sleep apnea) non compliant with CPAP Other enthesopathy of ankle and tarsus 01/12/2006 Other osteoporosis Restless leg syndrome 08/16/2015 Dr. Schmidt managing Retinal detachment 08/17/2015 Current Outpatient Medications Medication Sig topiramate (TOPAMAX) 50 mg tablet Take 1 tablet by mouth two times a day. Take 1 tab at night x1 week then twice daily. sertraline (ZOLOFT) 50 mg tablet Take 1 tablet by mouth once daily. Start with half a pill x1 week then go to a whole pill day diclofenac (VOLTAREN ARTHRITIS PAIN) 1 % topical gel Apply 4 g to affected area four times daily. gabapentin (NEURONTIN) 800 mg tablet Take 1 tablet by mouth two times a day for 90 days. omeprazole (PRILOSEC) 40 mg capsule take 1 capsule by mouth once daily dulaglutide (TRULICITY) 4.5 mg/0.5 mL pen injector Inject 4.5 mg subcutaneously one time a week. Lancing Device (LANCING DEVICE WITH LANCETS) misc Check blood sugar once daily buPROPion SR (WELLBUTRIN SR) 200 mg 12 hr tablet Take 1 tablet by mouth twice daily. Lancets lancets Test blood sugar(s) once daily. Dx: E11.9. New onset type 2 diabetes Insulin: No cholecalciferol, Vitamin D3, (VITAMIN D3) 1,250 mcg (50,000 unit) cap capsule Take 1 capsule by mouth one time a week. ibuprofen (MOTRIN) 800 mg tablet Take 1 tablet by mouth every 8 hours as needed for pain. No current facility-administered medications for this visit. ALLERGIES No Known Allergies PAST SURGICAL HISTORY Procedure Laterality Date CATARACT EXTRACTION HX Right 05/2015 COLONOSCOPY 09/15/2022 COLONOSCOPY FLX DX W/COLLJ SPEC WHEN PFRMD 08/22/2015 Colonoscopy (MAC) COLONOSCOPY SCREENING 2021 [facility] 2021 ENDOMETRIAL BX W/WO ENDOCERVIX BX W/O DILAT SPX 06/01/2008 Irregular Menses, Menorrhagia and Thickened Lining ESOPHAGOGASTRODUODENOSCOPY TRANSORAL DIAGNOSTIC 08/22/2015 EGD (MAC) INSERTION OF IUD 07/2017 LAPAROSCOPY SURG CHOLECYSTECTOMY 08/19/2007 PAST SURGICAL HISTORY OF x 4 PAST SURGICAL HISTORY OF 2022 foot surgery, multiple bilat PAST SURGICAL HISTORY OF bilateral ankle fractures PAST SURGICAL HISTORY OF 06/30/2014 right 2nd toe arthroplasty with tenotomies 3rd, 4th, and 5th toe - [facility] [place] [facility]- Dr. Conteh PAST SURGICAL HISTORY OF Right 04/2015 retinal tear PAST SURGICAL HISTORY OF Right right knee surgery TONSILLECTOMY & ADENOIDECTOMY <AGE 11 Physical Exam: OBJECTIVE: Constitutional: Pt is a well developed 52 year old female who is alert, oriented, cooperative and in no apparent distress. Eyes: Following during examination. No redness or drainage. Respiratory: RR normal and nonlabored. Even breathing. No evidence of distress. Psychology: Patient is engaged during conversation. Normal affect and mood. Does not appear depressed or anxious. NVSI unchanged from previous visit. Dermatological: Nails 1-5 b/l are normal. Webspaces clean and dry 1-4 b/l. Skin appears well hydrated and supple. good color, texture, turgor. No open lesions present. Callus of right 1st metatarsal and right 2nd and 3rd toe. Prior ulceration is now healed Musculoskeletal/Orthopaedic: Patient has no pain to palpation of b/l feet Valgus hindfoot noted ASSESSMENT: Diabetic ulcer of heel associated with diabetes mellitus due to underlying condition, with fat layer exposed, unspecified laterality (hcc) (primary encounter diagnosis) Dm (diabetes mellitus), type 2 with neurological complications ([facility]) Charcot ankle, right Callus PLAN: Ulceration of right foot is now healed. Small area of dryness and this was removed with foreceps and smoothened with power so. I want her to continue with surgical shoe or she can resume her new balance tennis shoes with powerstep gel insert until she receives diabetic shoe She does have callus to right 2nd and 3rd toe that was reduced with dremmel. We discussed plan to help relieve pressure to her foot and this will be via diabetic shoe If she were to consider surgical intervention, I would refer to one of my colleagues but I think she would require medial column fusion and mauricio talar fusion. Largest challenge would likely be that she has already had subtalar joint fusion and is in slight valgus. Other option would be to continue with diabetic shoes Will have her use lotion to feet daily F/u in 1 month or sooner if problems arise Charlie Rizzo DPM * Carol Valdivia RN - 01/15/2023 8:18 AM EDT Patient presents with: Right Foot - Established Patient, Follow Up: Diabetic foot ulcer Pt here for f/u on diabetic ulcer on right foot- denies pain. documented in this encounterF[facility]10-26-2023 Instructions* Patient Instructions* Charlie Rizzo - 01/15/2023 8:47 AM EDT Your wound is now healed. No signs of infection Continue with lotion daily Ok to pursue a good supportive tennis shoe, ie hokareen, talbot or new balance Powerstep Original Full length. Can purchase at [employer] here in [place], [employer] in [place] or [place]. Also can find in [place] in [facility]. Powersteps can also be purchased online, starting around $45.00 If you have a metatarsal or dancer pad for your feet apply the pad directly to the insole so you can interchange between your shoes. Find a shoe with a removable insole and take this out and replace with your powerstep insole. Always bring powersteps with you when shopping for shoes so that you can make sure that everything fits well together Would pursue diabetic shoe If you have issues, contact the office immediately. documented in this encounterFulton [facility] Center10-25-2023 Miscellaneous Notes* Telephone Encounter - Kelly Sahni LPN - 01/14/2023 3:30 PM EDT TC to Patient, advised that she has an active RX for Gabapentin, initially written 12/22/2022 for 60tablets, 2 refills. Next appt 01/26/2023. Kelly Sahni LPN documented in this encounterFulton [facility] Center10-20-2023 Miscellaneous Notes* Telephone Encounter - Kathi Briones LPN - 01/09/2023 2:51 PM EDT Patient is requesting new prescription be sent to mail order pharmacy. To difficult to get medications at local pharmacy due to short staffing. Patient has been identified by name and date of : Yes, Provider Ankita Date 01/09/23 Time 2:52pm Patient phones for refill(s): Requested Prescriptions Pending Prescriptions Disp Refills topiramate (TOPAMAX) 50 mg tablet 60 tablet 2 Sig: Take 1 tablet by mouth two times a day. Take 1 tab at night x1 week then twice daily. Date of last office visit in primary care: 12/22/2022 Date of next office visit in primary care: 01/26/2023 Last 2 Encounter Wt Readings: Date: Wt: 12/22/2022 120.2 kg (265 lb) 11/07/2022 125.6 kg (277 lb) Please advise. Thank you. Kathi Briones LPN. documented in this encounterFulton [facility] Center10-18-2023 Miscellaneous Notes* Telephone Encounter - Trish Barnett LPN - 01/07/2023 1:35 PM EDT Patient stopped by office and picked up supplies yesterday 01/06/2023. Trish Barnett LPN documented in this encounterFulton [facility] Center09-26-2023 Miscellaneous Notes* Telephone Encounter - Kelly Sahni LPN - 12/16/2022 11:37 AM EDT Patient has been identified by name and date of : Yes Patient phones for refill(s): Requested Prescriptions Pending Prescriptions Disp Refills omeprazole (PRILOSEC) 40 mg capsule [Pharmacy Med Name: OMEPRAZOLE DR 40 MG CAPSULE] 30 capsule 0 Sig: take 1 capsule by mouth once daily Date of last office visit in primary care: 10/28/2022 Appt: 12/19/2022 Last 2 Encounter Wt Readings: Date: Wt: 11/07/2022 125.6 kg (277 lb) 10/28/2022 126 kg (277 lb 12.8 oz) Previous labs/tests for medication: Not applicable Please advise. Thank you. Kelly Sahni LPN documented in this encounterFulton County [facility] Center09-25-2023 History of Present illness Narrative* Lennie Mcdonald LPN - 12/15/2022 1:26 PM EDT Patient presents for Hep B, Pneumococcal, influenza vaccine. Denies any problems at this time. Tolerated injections well. Lennie Mcdonald LPN documented in this encounterFulton [facility] Center09-22-2023 History of Present illness Narrative* Charlie Rizzo - 12/12/2022 11:39 AM EDT FOLLOW UP PODIATRIC OFFICE VISIT Chief Complaint: This 52 year old who presents for follow up:right foot/ankle deformity Patient presents to clinic for follow-up right foot and ankle deformity She states since last office visit, her crocs broke requiring her to use sneakers and she developedblistering to right great toe. She has been applying neosporin to her right foot. No other complaints. PAIN EVALUATION 12/09/2022 1327 Pain Level: 8 Pain Location: Foot-Right Description: Aching Duration Amount of Time: 3 Duration Units: Days Frequency: Continuous Hemoglobin A1C Date Value Ref Range Status 07/15/2022 6.2 (H) 4.3 - 5.6 % Final Comment: [place] [employer] guidelines indicate that patients with HgbA1c in the range 5.7-6.4% are at increased risk for development of diabetes, and intervention by lifestyle modification may be beneficial. HgbA1c greater or equal to 6.5% is considered diagnostic of diabetes. 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 Talha gannon MRA in 2012 Benign paroxysmal positional vertigo not an issue since 2006 Cataract Chronic cholecystitis 2008 Diabetes ([facility]) Dizziness and giddiness Elevated AST (SGOT) 10/16/2011 Esophageal reflux Excessive or frequent menstruation 06/19/2008 Family history of cardiac disorder in mother 12/23/2013 Fibromyalgia Hallux valgus (acquired) 01/12/2006 Hx-TIA (transient ischemic attack) January 2012 [place] Mixed hyperlipidemia 03/19/2006 Resolved Morbid obesity with BMI of 40.0-44.9, adult ([facility]) 09/12/2014 Myalgia and myositis, unspecified Neuropathy Dr. Schmidt managing WILTON (obstructive sleep apnea) non compliant with CPAP Other enthesopathy of ankle and tarsus 01/12/2006 Other osteoporosis Restless leg syndrome 08/16/2015 Dr. Schmidt managing Retinal detachment 08/17/2015 Current Outpatient Medications Medication Sig dulaglutide (TRULICITY) 4.5 mg/0.5 mL pen injector Inject 4.5 mg subcutaneously one time a week. topiramate (TOPAMAX) 50 mg tablet Take 1 tablet by mouth twice daily. Take 1 tab at night x1 week then twice daily. Lancing Device (LANCING DEVICE WITH LANCETS) misc Check blood sugar once daily miSOPROStol (CYTOTEC) 200 mcg tablet Insert 2 tablets vaginally night prior to IUD procedure and 2 tablets morning of procedure. Each dose should be in vagina for 6-8 hours. gabapentin (NEURONTIN) 800 mg tablet Take 1 tablet by mouth twice daily for 90 days. omeprazole (PRILOSEC) 40 mg capsule take 1 capsule by mouth once daily buPROPion SR (WELLBUTRIN SR) 200 mg 12 hr tablet Take 1 tablet by mouth twice daily. Lancets lancets Test blood sugar(s) once daily. Dx: E11.9. New onset type 2 diabetes Insulin: No cholecalciferol, Vitamin D3, (VITAMIN D3) 1,250 mcg (50,000 unit) cap capsule Take 1 capsule by mouth one time a week. ibuprofen (MOTRIN) 800 mg tablet Take 1 tablet by mouth every 8 hours as needed for pain. No current facility-administered medications for this visit. ALLERGIES No Known Allergies PAST SURGICAL HISTORY Procedure Laterality Date CATARACT EXTRACTION HX Right 05/2015 COLONOSCOPY 09/15/2022 COLONOSCOPY FLX DX W/COLLJ SPEC WHEN PFRMD 08/22/2015 Colonoscopy (MAC) COLONOSCOPY SCREENING 2021 EGD 09/15/2022 EGD W/O [facility] SPEC VARICIES INJ 2021 ENDOMETRIAL BX W/WO ENDOCERVIX BX W/O DILAT SPX 06/01/2008 Irregular Menses, Menorrhagia and Thickened Lining ESOPHAGOGASTRODUODENOSCOPY TRANSORAL DIAGNOSTIC 08/22/2015 EGD (MAC) INSERTION OF IUD 07/2017 LAPAROSCOPY SURG CHOLECYSTECTOMY 08/19/2007 PAST SURGICAL HISTORY OF x 4 PAST SURGICAL HISTORY OF 2022 foot surgery, multiple bilat PAST SURGICAL HISTORY OF bilateral ankle fractures PAST SURGICAL HISTORY OF 06/30/2014 right 2nd toe arthroplasty with tenotomies 3rd, 4th, and 5th toe - [facility]- Dr. Conteh PAST SURGICAL HISTORY OF Right 04/2015 retinal tear PAST SURGICAL HISTORY OF Right right knee surgery TONSILLECTOMY & ADENOIDECTOMY <AGE 11 Physical Exam: OBJECTIVE: Constitutional: Pt is a well developed 52 year old female who is alert, oriented, cooperative and in no apparent distress. Eyes: Following during examination. No redness or drainage. Respiratory: RR normal and nonlabored. Even breathing. No evidence of distress. Psychology: Patient is engaged during conversation. Normal affect and mood. Does not appear depressed or anxious. NVSI unchanged from previous visit. Dermatological: Nails 1-5 b/l are normal. Webspaces clean and dry 1-4 b/l. Skin appears well hydrated and supple. good color, texture, turgor. No open lesions present. No callosities present. Musculoskeletal/Orthopaedic: Patient has no pain to palpation of right foot B/l lower extremity swelling of foot. No calf pain There is collapse of b/l foot Bunion noted to b/l feet ASSESSMENT: Diabetic ulcer of heel associated with diabetes mellitus due to underlying condition, with fat layer exposed, unspecified laterality (hcc) (primary encounter diagnosis) Dm (diabetes mellitus), type 2 with neurological complications (hcc) Charcot ankle, right PLAN: Patient examined today. She has superficial noninfected ulceraiton of right foot Today, I debrided this with 15 blade and tissue nippers. I debrided the wound thru subcutaneous tissue. Total debridement was approximately 2.5 cm x 1.5 cm Will treat with aquacel and surgical shoe to offload the ulceration. Will use peg assisted insert to offload pressure. Discussed boot but I worry that with her hindfoot valgus that appears rigid, this may lead to rubbing in the boot Limiting pressure to her foot is martinez to healing this ulceration Will order xrays as she has new ulceration F/u in 2 weeks or sooner if problems arise Charlie Rizzo DPM * Maine Santo RN - 12/09/2022 2:34 PM EDT Dressed foot with Adaptic, gauze and gauze wrap. Per Dr. Rizzo Olga Lidia was provided with 2 post op shoes, size Large, and instructed/educated in its application, wear, and care. All questions were answered, and patient was able to demonstrate competence with the necessary skills to utilize the above equipment. Maine Santo RN * Irasema Lazo - 12/09/2022 1:25 PM EDT Patient presents with: Right Foot - Established Patient: Open blister with bleeding ongoing a few days Patient reports an opened blister on the right foot. She states it has bled recently. She also reports bruising on the toes of that foot. She states she hit her toes on a stationary bike. AMB ROOMING INTAKE FLOWSHEET DATA Pain Pain Level: 8 Pain Location: Foot-Right Description: Aching Duration Amount of Time: 3 Duration Units: Days Frequency: Continuous documented in this encounterFult[facility] Center2023 History of Present illness Narrative* Joellen Odonnell RT(R) - 12/10/2022 10:10 AM EDT Radiology Service Progress Note PATIENT NAME: Olga Lidia Tello DATE OF SERVICE: December 10, 2022 TIME: 10:20 AM PATIENT IDENTITY VERIFICATION COMPLETED USING TWO (2) IDENTIFIERS: Name and Date of confirmedby patient verbally. FALL SCREENING: Has the patient had 2 falls in the last year or 1 fall with injury or currently using an Ambulatory Assistive Device (Walker, Cane, Wheelchair, Crutches, etc.)? No PATIENT GENDER DATA: Female. status: : No status: NO. PATIENT RELEVANT IMPLANT DATA REVIEWED: Yes RADIOLOGY DEPARTMENT: General X-ray: Exam(s) Completed: Lower Extremity X- Ray(s): Foot, Right and Wt. Bearing PERIPHERAL IV DATA: Not applicable SIGNED BY: RT Yoan(R) December 10, 2022 10:20 AM documented in this [facility]09-19-2023 Instructions* Patient Instructions* Charlie Rizzo - 12/09/2022 2:06 PM EDT Apply aquacel to right foot ulceration daily Keep out of water Wear surgical shoe Get xray Follow-up in 2 weeks documented in this [facility]09-18-2023 Miscellaneous Notes* Telephone Encounter - Charlie Rizzo - 12/08/2022 12:16 PM EDT I tried calling patient today to discuss her ankle. No answer. Instructed her to either reschedule face to face or virtually. Also happy to try phone if she prefers. Charlie Rizzo DPM documented in this [facility]09-12-2023 Miscellaneous Notes* Telephone Encounter - Magda Wilson MA - 12/02/2022 8:42 AM EDT Patient has been identified by name and date of : Yes Requested Prescriptions Pending Prescriptions Disp Refills dulaglutide (TRULICITY) 4.5 mg/0.5 mL pen injector 4 Each 3 Sig: Inject 4.5 mg subcutaneously one time a week. topiramate (TOPAMAX) 50 mg tablet 60 tablet 2 Sig: Take 1 tablet by mouth twice daily. Take 1 tab at night x1 week then twice daily. RX INSTRUCTIONS: Patient aware RX will be sent to pharmacy. No need to notify patient. Patient last office visit: 10/28/22 Patient next office visit: 12/08/22 Magda Wilson MA documented in this encounterFulton [facility]09-05-2023 Miscellaneous Notes* Telephone Encounter - Kanika Malone LPN - 11/25/2022 2:03 PM EDT Last office visit: 10/28/22 Next appointment scheduled: 12/08/22 Last labs: 07/15/22 last HGBA1C Patient phones requesting refills as follows: Requested Prescriptions Pending Prescriptions Disp Refills Lancing Device (LANCING DEVICE WITH LANCETS) misc 1 Each 0 Sig: Check blood sugar once daily Kanika Malone LPN documented in this encounterFulton [facility] Center09-05-2023 Miscellaneous Notes* Telephone Encounter - Kanika Malone LPN - 11/25/2022 11:08 AM EDT PATIENT NOTIFIED OF SAME. * Telephone Encounter - Lulu Luciano MD - 11/22/2022 2:31 PM EDT Error in last RX that had an end date 10/28/22 so came off medlist when that date hit. Sent again with refills to last 90 days The following approved medication requests have been transmitted electronically. Requested Prescriptions Signed Prescriptions Disp Refills gabapentin (NEURONTIN) 800 mg tablet 60 tablet 2 Sig: Take 1 tablet by mouth twice daily for 90 days. Authorizing Provider: LULU LUCIANO MD * Telephone Encounter - Gladsy Hutton LPN - 11/21/2022 1:17 PM EDT Pt called the pharmacy for her gabapentin and was told the doctor's office had cancelled prescription. I let her know records show that it was stopped because pt no longer taking. Pt has been taking the 800 mg twice a day and took her last one last night. Pt reports on 10/28/22 she was put on other medications and wondering if she was supposed to stop this and didn't. Please review and advise pt. If she is to be taking the gabapentin will need a new rx sent in.to [facility]. Please advise pt. Gladys Hutton LPN documented in this encounterFulton [facility] Center08-30-2023 Miscellaneous Notes* Telephone Encounter - Kelly Sahni LPN - 11/19/2022 9:00 AM EDT Patient has been identified by name and date of : Yes Patient phones for refill(s): Requested Prescriptions Pending Prescriptions Disp Refills omeprazole (PRILOSEC) 40 mg capsule [Pharmacy Med Name: OMEPRAZOLE DR 40 MG CAPSULE] 30 capsule 0 Sig: take 1 capsule by mouth once daily Date of last office visit in primary care: 10/28/2022 6 week follow-up: 12/08/2022 Last 2 Encounter Wt Readings: Date: Wt: 11/07/2022 125.6 kg (277 lb) 10/28/2022 126 kg (277 lb 12.8 oz) Previous labs/tests for medication: Not applicable Please advise. Thank you. Kelly Sahni LPN documented in this encounterCleveland [id number] Instructions* Patient Instructions* Charlie Rizzo - 11/17/2022 3:17 PM EDT Diabetes Foot Care Instructions When you have diabetes, proper foot care is very important. Poor foot care may lead to amputation of a foot or leg. As a person with diabetes, you are more vulnerable to foot problems, because diabetes can damage your nerves and reduce blood flow to your feet. Here are some diabetes foot care tips to follow: Wash and Dry Your Feet Daily Use mild soaps Use warm water Pat your skin dry; do not rub. Thoroughly dry your feet. After washing, use lotion on your feet to prevent cracking. Do not put lotion between your toes. Examine Your Feet Each Day Check the tops and bottoms of your feet. Have someone else look at your feet if you cannot see them. Check for dry, cracked skin. Look for blisters, cuts, scratches, or other sores. Check for redness, increased warmth, or tenderness when touching any area of your feet. Check for ingrown toenails, corns, and calluses. If you get a blister or sore from your shoes, do not pop it. Apply a bandage and wear a differentpair of shoes. Take Care of Your Toenails Cut toenails after bathing, when they are soft. Cut toenails straight across and smooth with a nail file. Avoid cutting into the corners of toes. Do not cut cuticles. If you have neuropathy (or decreased sensation in your feet) a command and control officer should always cut your toenails. Be Careful When Exercising Walk and exercise in comfortable shoes. Do not exercise when you have open sores on your feet. Protect Your Feet With Shoes and Socks Never go barefoot. Always protect your feet by wearing shoes or hard-soled slippers or footwear. Avoid shoes with high heels and pointed toes. Avoid shoes that expose your toes or heels (such as open-toed shoes or sandals). These types of shoes increase your risk for injury and potential infections. Try on new footwear with the type of socks you usually wear. Do not wear new shoes for more than an hour at a time. Change your socks daily. Look and feel inside your shoes before putting them on to make sure there are no foreign objects orrough areas. Avoid tight socks. Wear natural-fiber socks (cotton, wool, or a cotton-wool blend). Wear special shoes if your health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 twice daily with meals. ferrous sulfate 325 mg (65 mg iron) tablet Take 325 mg by mouth once daily. Lancing Device (LANCING DEVICE WITH LANCETS[place] [facility] [place] blood sugar once daily No current facility-administered medications for this visit. ALLERGIES: Patient has no known allergies. PERSONAL HISTORY: SOCIAL HISTORY Social History Tobacco Use Smoking status: Never Smokeless tobacco: Never Vaping Use Vaping Use: Never used Substance Use Topics Alcohol use: Not Currently Drug use: No FAMILY HISTORY: FAMILY HISTORY FAMILY HISTORY Problem Relation Age of Onset Heart Mother other (fibroids) Mother Heart Father Arthritis Father Colon Cancer Father diagnosed at 74yo; has colostomy Alzheimer's Disease Father Psychiatry Maternal Grandmother Suicide Cancer Paternal Grandmother Breast Cancer Paternal Aunt Brain Cancer Paternal Aunt Uterine cancer REVIEW OF SYMPTOMS: The review of systems data was entered by the nurse and reviewed by ca Nursing Notes: Keyona Arreguin LPN 07/17/2022 9:43 AM Signed REVIEW OF SYSTEMS: General: The patient notes fatigue, notes weight loss, notes weight gain, notes feeling hot, and denies feelings of cold. Eyes: The patient denies glaucoma, notes eye injury/surgery, wears glasses or contacts. Ear/Nose/Throat: The patient denies allergies, denies hayfever, denies ear infections, and denies bloody noses. Cardiovascular: The patient denies chest pain, denies heart disease, denies high blood pressure,denies cardiac stent, denies prior heart attack, denies irregular heart beat, denies high cholesterol, denies poor circulation, denies heart failure, other cardiac issues, notes claudication, notes cold feet, denies peripheral arterial stent. Respiratory: The patient denies tuberculosis, notes pneumonia, denies frequent cough, denies pulmonary embolism, notes shortness of breath, and denies coughing up blood. Gastrointestinal: The patient denies difficulty swallowing, notes acid reflux, denies ulcers, denies vomiting, denies jaundice/hepatitis, notes gallbladder problems, denies black or tarry stools, denies hemorrhoids, denies bleeding from rectum, denies diverticulitis, denies constipation, notes diarrhea, denies loss of stool control, and denies hernias. Kidney/Bladder: The patient notes kidney stones, notes urine infections, and denies bloody urine. Skin: The patient denies a history of skin cancer, denies bleeding/changing moles, and denies a history of skin rash. Neurologic: The patient denies a history of epilepsy/convulsions, notes headaches, denies head/spinal injuries, and notes stroke/TIA. Psychiatric: The patient denies psychiatric medications, notes depression, and denies voices, denies substance abuse. Endocrine: The patient denies thyroid disorders, notes diabetes, and denies hormonal problems. Hematologic: The patient denies a history of bruising, denies bleeding, and denies anemia, denies blood clots. Infections: The patient denies a history of measles and mumps, denies rheumatic fever, and notes sexually transmitted diseases. Musculoskeletal: The patient denies back pain/injury, denies back problems, denies sciatica, notes knee/foot trouble, notes arthritis, or denies gout. When was patient's last Mammogram screening? 2022 Last Colonoscopy: states had one last year doesn't know where had done. Keyona Arreguin LPN PHYSICAL EXAMINATION: General: The patient is 51 year old female, well nourished, well hydrated in no acute distress. Thepatient is oriented to time, place, and person. VITALS: Blood pressure 130/84, pulse 101, temperature 36.2 C (97.2 F), height 180.3 cm (5' 11), weight 127 kg (280 lb), last menstrual period 06/11/2022, SpO2 95 %. Body mass index is 39.05 kg/m . HEENT: Normal cephalic, ataumatic, pupils are equally round, sclera are anicteric, mucous membranesare moist, oropharynx is clear. Neck has no masses, asymmetry or lymphadenopathy. Thyroid is unremarkable. Respiratory: Clear to auscultation and percussion. Normal respiratory excursion and pattern. Cardiac: Examination is regular rate and rhythm. Abdominal exam: Soft, nontender, with no palpable masses. No hepatosplenomegaly. No palpable hernias. Rectal exam: exam deferred Extremities: no clubbing, cyanosis or edema. No adenopathy. Other: LABORATORY VALUES: As Noted RADIOLOGIC STUDIES: As Noted Assessment IMPRESSION: family history of colon cancer PLAN: I plan to perform upper and lower endoscopy. We discussed the risks and benefits of the planned endoscopy. I have informed the patient that complications can occur including failure to completethe endoscopy and perforation. The patient had the opportunity to ask questions concerning the planned endoscopy. My staff has also explained the procedure to the patient in understandable terms and has given the patient printed material concerning the procedure. The patient freely consents to surgery. I plan to use golytely bowel preparation for endoscopy Diagnoses: (R19.4) Change in bowel habits (primary encounter diagnosis) (Z80.0) Family history of colon cancer in father (Z12.11) Screening for colon cancer (R14.0) Bloating My findings have been communicated to Dr. Lulu Luciano MD via shared medical record. This note will be forwarded to Dr. Lulu Luciano MD. Return to Clinic: The patient is instructed to follow-up with me after the testing has been completed. Jt Evans MD * Jt Evans MD - 09/15/2022 2:30 PM EDT Images from the original note were not included. HISTORY AND PHYSICAL Olga Lidia Tello 1970 REFERRING PHYSICIAN: Pedro Patricia APRN.CNP CHIEF COMPLAINT: Consult (colonoscopy) HPI: The patient is a 51 year old female referred for endoscopy. Olga Lidia notes some left sided colon issues and has IBS - D The patient noted some GERD but controlled with prilosec Olga Lidia has undergone prior endoscopy. Dr. Reyes did upper and lower endoscopy in 2017. Both were normal. She has since found her father had colon cancer. She now remembered she underwent upper and lower endoscopy in [place] in the last year. She was foundto have active gastritis. She had a hyperplastic polyp removed in the cecum but did not have randomcolon biopsies. The patient is being seen by me today at the request of Dr. Lulu Luciano MD for my opinion and advice regarding high risk screening. 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 Talha gannon MRA in 2012 Benign paroxysmal positional vertigo not an issue since 2006 Cataract Chronic cholecystitis 2008 Diabetes ([facility]) Dizziness and giddiness Elevated AST (SGOT) 10/16/2011 Esophageal reflux Excessive or frequent menstruation 06/19/2008 Family history of cardiac disorder in mother 12/23/2013 Fibromyalgia Hallux valgus (acquired) 01/12/2006 Hx-TIA (transient ischemic attack) January 2012 [place] Mixed hyperlipidemia 03/19/2006 Resolved Morbid obesity with BMI of 40.0-44.9, adult (HCC) 09/12/2014 Myalgia and myositis, unspecified Neuropathy Dr. Schmidt managing WILTON (obstructive sleep apnea) non compliant with CPAP Other enthesopathy of ankle and tarsus 01/12/2006 Other osteoporosis Restless leg syndrome 08/16/2015 Dr. Schmidt managing Retinal detachment 08/17/2015 PAST SURGICAL HISTORY PAST SURGICAL HISTORY Procedure Laterality Date CATARACT EXTRACTION HX Right 05/2015 COLONOSCOPY FLX DX W/COLLJ SPEC WHEN PFRMD 08/22/2015 Colonoscopy (MAC) ENDOMETRIAL BX W/WO ENDOCERVIX BX W/O DILAT SPX 06/01/2008 Irregular Menses, Menorrhagia and Thickened Lining ESOPHAGOGASTRODUODENOSCOPY TRANSORAL DIAGNOSTIC 08/22/2015 EGD (MAC) INSERTION OF IUD 07/2017 LAPAROSCOPY SURG CHOLECYSTECTOMY 08/19/2007 PAST SURGICAL HISTORY OF x 4 PAST SURGICAL HISTORY OF 2022 foot surgery, multiple bilat PAST SURGICAL HISTORY OF bilateral ankle fractures PAST SURGICAL HISTORY OF 06/30/2014 right 2nd toe arthroplasty with tenotomies 3rd, 4th, and 5th toe - [facility]- Dr. Conteh PAST SURGICAL HISTORY OF Right 04/2015 retinal tear PAST SURGICAL HISTORY OF Right right knee surgery TONSILLECTOMY & ADENOIDECTOMY <AGE 11 CURRENT MEDICATIONS Current Outpatient Medications Medication Sig gabapentin (NEURONTIN) 800 mg tablet Take 1 tablet by mouth twice daily for 90 days. dulaglutide (TRULICITY) 3 mg/0.5 mL pen injector Inject 3 mg subcutaneously one time a week. cholecalciferol, Vitamin D3, (VITAMIN D3) 1,250 mcg (50,000 unit) cap capsule Take 1 capsule by mouth one time a week. DULoxetine (CYMBALTA) 60 mg capsule Take 2 capsules by mouth once daily. omeprazole (PRILOSEC) 20 mg capsule Take 1 capsule by mouth daily before breakfast. 1/2 hr before meal. ibuprofen (MOTRIN) 800 mg tablet Take 1 tablet by mouth every 8 hours as needed for pain. Lancets lancets Test blood sugar(s) once daily. Dx: E11.9. New onset type 2 diabetes Insulin: No metFORMIN (GLUCOPHAGE) 500 mg tablet Take 2 tablets by mouth twice daily with meals. ferrous sulfate 325 mg (65 mg iron) tablet Take 325 mg by mouth once daily. Lancing Device (LANCING DEVICE WITH LANCETS[place] [facility] [place] blood sugar once daily No current facility-administered medications for this visit. ALLERGIES: Patient has no known allergies. PERSONAL HISTORY: SOCIAL HISTORY Social History Tobacco Use Smoking status: Never Smokeless tobacco: Never Vaping Use Vaping Use: Never used Substance Use Topics Alcohol use: Not Currently Drug use: No FAMILY HISTORY: FAMILY HISTORY FAMILY HISTORY Problem Relation Age of Onset Heart Mother other (fibroids) Mother Heart Father Arthritis Father Colon Cancer Father diagnosed at 74yo; has colostomy Alzheimer's Disease Father Psychiatry Maternal Grandmother Suicide Cancer Paternal Grandmother Breast Cancer Paternal Aunt Brain Cancer Paternal Aunt Uterine cancer REVIEW OF SYMPTOMS: The review of systems data was entered by the nurse and reviewed by ca Nursing Notes: Keyona Arreguin LPN 07/17/2022 9:43 AM Signed REVIEW OF SYSTEMS: General: The patient notes fatigue, notes weight loss, notes weight gain, notes feeling hot, and denies feelings of cold. Eyes: The patient denies glaucoma, notes eye injury/surgery, wears glasses or contacts. Ear/Nose/Throat: The patient denies allergies, denies hayfever, denies ear infections, and denies bloody noses. Cardiovascular: The patient denies chest pain, denies heart disease, denies high blood pressure,denies cardiac stent, denies prior heart attack, denies irregular heart beat, denies high cholesterol, denies poor circulation, denies heart failure, other cardiac issues, notes claudication, notes cold feet, denies peripheral arterial stent. Respiratory: The patient denies tuberculosis, notes pneumonia, denies frequent cough, denies pulmonary embolism, notes shortness of breath, and denies coughing up blood. Gastrointestinal: The patient denies difficulty swallowing, notes acid reflux, denies ulcers, denies vomiting, denies jaundice/hepatitis, notes gallbladder problems, denies black or tarry stools, denies hemorrhoids, denies bleeding from rectum, denies diverticulitis, denies constipation, notes diarrhea, denies loss of stool control, and denies hernias. Kidney/Bladder: The patient notes kidney stones, notes urine infections, and denies bloody urine. Skin: The patient denies a history of skin cancer, denies bleeding/changing moles, and denies a history of skin rash. Neurologic: The patient denies a history of epilepsy/convulsions, notes headaches, denies head/spinal injuries, and notes stroke/TIA. Psychiatric: The patient denies psychiatric medications, notes depression, and denies voices, denies substance abuse. Endocrine: The patient denies thyroid disorders, notes diabetes, and denies hormonal problems. Hematologic: The patient denies a history of bruising, denies bleeding, and denies anemia, denies blood clots. Infections: The patient denies a history of measles and mumps, denies rheumatic fever, and notes sexually transmitted diseases. Musculoskeletal: The patient denies back pain/injury, denies back problems, denies sciatica, notes knee/foot trouble, notes arthritis, or denies gout. When was patient's last Mammogram screening? 2022 Last Colonoscopy: states had one last year doesn't know where had done. Keyona Arreguin, JACOB PHYSICAL EXAMINATION: General: The patient is 51 year old female, well nourished, well hydrated in no acute distress. Thepatient is oriented to time, place, and person. VITALS: Blood pressure 130/84, pulse 101, temperature 36.2 C (97.2 F), height 180.3 cm (5' 11), weight 127 kg (280 lb), last menstrual period 06/11/2022, SpO2 95 %. Body mass index is 39.05 kg/m . HEENT: Normal cephalic, ataumatic, pupils are equally round, sclera are anicteric, mucous membranesare moist, oropharynx is clear. Neck has no masses, asymmetry or lymphadenopathy. Thyroid is unremarkable. Respiratory: Clear to auscultation and percussion. Normal respiratory excursion and pattern. Cardiac: Examination is regular rate and rhythm. Abdominal exam: Soft, nontender, with no palpable masses. No hepatosplenomegaly. No palpable hernias. Rectal exam: exam deferred Extremities: no clubbing, cyanosis or edema. No adenopathy. Other: LABORATORY VALUES: As Noted RADIOLOGIC STUDIES: As Noted Assessment IMPRESSION: family history of colon cancer PLAN: I plan to perform upper and lower endoscopy. We discussed the risks and benefits of the planned endoscopy. I have informed the patient that complications can occur including failure to completethe endoscopy and perforation. The patient had the opportunity to ask questions concerning the planned endoscopy. My staff has also explained the procedure to the patient in understandable terms and has given the patient printed material concerning the procedure. The patient freely consents to surgery. I plan to use golytely bowel preparation for endoscopy Diagnoses: (R19.4) Change in bowel habits (primary encounter diagnosis) (Z80.0) Family history of colon cancer in father (Z12.11) Screening for colon cancer (R14.0) Bloating My findings have been communicated to Dr. Lulu Luciano MD via shared medical record. This note will be forwarded to Dr. Lulu Luciano MD. Return to Clinic: The patient is instructed to follow-up with me after the testing has been completed. Jt Evans MD [facility] History of Present illness Narrative* RT Cornel(R) - 09/15/2022 2:30 PM EDT Radiology Service Progress Note PATIENT NAME: Olga Lidia Tello DATE OF SERVICE: September 15, 2022 TIME: 4:46 PM PATIENT IDENTITY VERIFICATION COMPLETED USING TWO (2) IDENTIFIERS: Name and Date of confirmedby patient verbally and Name and Date of confirmed by identification band. FALL SCREENING: Has the patient had 2 falls in the last year or 1 fall with injury or currently using an Ambulatory Assistive Device (Walker, Cane, Wheelchair, Crutches, etc.)? [facility] GENDER DATA: Female. status: : No status: NO. PATIENT RELEVANT IMPLANT DATA REVIEWED: Not Applicable RADIOLOGY DEPARTMENT: General X-ray: Exam(s) Completed: Abdomen X-Ray: Abdomen PERIPHERAL IV DATA: Not applicable SIGNED BY: RT Cornel(R) September 15, 2022 4:46 PM documented in this encounterFulton [facility]05-05-2023 History and physical note Author Dr. Nguyen [facility] July 25, 2022 5:19pm Note Date/Time July 24, 2022 12:28p [facility] [address] [place] [id number] H&P Exam - Wound Care 07/24/22 1225 MR#: [id number] Acct: [id number] Name: OLGA LIDIA TELLO Rep #:[id number] : 1970 51 From: Cliff hebert MD PCP: Dr. Lulu Luciano MD Status:RE G RCR Location: History of Present Illness Date of Service: 07/24/22 Chief Complaint: Recurrent Left Toe Ulceration History of Wound: Ms. Tello is a 51 yo referred to the wound center by her command and control officer due to recurrent left toe ulcers. Current area of concern is her left second toe. Has had recurrent ulcerations for many years and has been seeing her command and control officer closely. History of diabetic neuropathy, severe. Sometimes wears postop shoes but admits that she alternates 1 postop shoe between both feet. Recommendation by her command and control officer was for surgery but, she states that she was not open to this. She feels well otherwise. [facility] Medical History (Updated 07/24/22 @ 12:[address] Cliff Nguyen MD) Callus of toe Foot deformity Neuropathy of both feet Home Medications duloxetine 60 mg capsule,delayed release 60 mg PO DAILY 01/10/15 [History Last Taken Unknown] calcium phosphate,dibasic 77 mg-vitamin D3 400 unit tablet tab PO 07/24/22 [History Last Taken Unknown] gabapentin 800 mg tablet 800 mg PO BID 07/24/22 [History Last Taken Unknown] ibuprofen 400 mg tablet 800 mg PO Q12H PRN PRN Headache 07/24/22 [History Last Taken Unknown] iron 50 mg iron tablet tab PO 07/24/22 [History Last Taken Unknown] magnesium 250 mg tablet 250 mg PO DAILY 07/24/22 [History Last Taken Unknown] metformin 500 mg tablet 1,000 mg PO BID 07/24/22 [History Last Taken Unknown] Allergy/AdvReac Type Severity Reaction Status Date / Time povidone-iodine Allergy Hives Verified 06/26/14 13:06 [From Betadine] soap [From Betadine] Allergy Hives Verified 06/26/14 13:06 Social History Smoking Status: Never smoker ROS Constitutional Constitutional: Denies fatigue, fever(s), frequent falls, increased appetite, lethargy or malaise Eyes Eyes: Denies change in eye color, change in vision, discharge from eye(s), double vision, dry eyes, excessive blinking or exophthalmos ENT HEENT: Denies dysphagia, ear discharge, ear pain, foreign body in nose, halitosis, hearing loss or hoarseness Cardiovascular Cardiovascular: Denies diaphoresis, dizziness, dyspnea at rest, dyspnea on exertion, edema or erythema on extremities Respiratory/Chest Respiratory/Chest: Denies difficulty clearing secretions, dry cough, dyspnea on exertion, excessive phlegm production, hemoptysis or hoarseness Gastrointestinal Gastrointestinal: Denies abdominal pain, belching, chewing difficulty, dry heaves, excessive flatus, vomiting or weight changes Genitourinary Genitourinary: Denies abdominal discomfort, difficulty urinating, flank pain or itching Musculoskeletal Musculoskeletal: Denies atrophy, extremity pain, loss of height or muscle weakness Integumentary Integumentary: Denies bleeding lesions, change in hair, changing lesions, furuncle, hirsutism, jaundice, non-healing lesions or skin pain Neurologic Neurologic: Denies behavior changes, burning sensations, disequilibrium, dizziness, focal weakness, frequent falls, lack of coordination, loss of vision or memory loss Psychiatric Psychiatric: Denies auditory hallucinations, behavioral changes, change in appetite, confusion, hallucinations, memory loss, paranoia, tactile hallucinations or visual hallucinations Endocrine Endocrinology: Denies change in body appearance, cold intolerance, deepening of the voice, excessive sweating, flushing or heat intolerance Allergic/Immunologic Allergic/Immunologic: Denies itchy eyes, lip swelling, rhinitis, throat swelling, tongue swelling or wheezing Vital Signs Vital Signs Vital Signs: 07/24/22 10:48 Temperature 97.5 F L Temperature Source Temporal Pulse Rate 97 Respiratory Rate 18 Blood Pressure 146/99 H Blood Pressure Mean 114 Blood Pressure Source Manual Blood Pressure Position Semi-Fowlers Blood Pressure Location Left Arm Weight Weight: 282 lb 12.465 oz Body Mass Index (BMI) 39.4 Physical Exam Const alert, oriented x3 and no apparent distress General Appearance: cooperative, comfortable and well kempt HEENT normocephalic and head/scalp atraumatic Head and Scalp: normal to inspection Eyes EOMs intact bilaterally General Eye: normal appearance of both eyes Neck full ROM and supple General: normal visual inspection Resp normal respiratory effort Effort and Inspection: able to speak in complete sentences Extremity full ROM and no pedal edema Neuro oriented x3, CN's II-XII intact bilaterally, moves all extremities and no focal motor deficits Psych mental status grossly normal, thought process normal, cooperative and affect normal Debridement Note Debridement Note Post-Debridement Measurements and Additional Note: Post-Debridement Measurements/Treatment - Nurse 1 - General Ulcer Assessment Start: 07/24/22 10:40 Freq: Status: Active Protocol: RENETTA Activity Type Activity Date Activity User E-sign Co-sign Detail Recorded Client Recorded Date Recorded By Document 07/24/22 10:48 MARIAH [id number] 07/24/22 10:57 RB 07/24/22 10:48 WC - Today's Visit Information Type of service Initial Visit Arrival Mode Ambulatory Transfer Assistance None Patient Identification Verified (Name & Yes ) Patient Requires Transmission-Based No Precautions Height and Weight Height 5 ft 11 in Weight 282 lb 12.465 oz Weight in Pounds 282.8 lbs Body Mass Index (BMI) 39.4 BMI Classification Obese BSA - Kev 2.44 Vital Signs Temperature (97.8 F-99.1 F) 97.5 F L Temperature Source Temporal Pulse Rate (60-100) 97 Pulse Location Monitor Respiratory Rate (12-18) 18 Respiratory rate source Observation Blood Pressure (90/60-120/80) 146/99 H Blood Pressure Mean 114 Source Manual Position Semi-Fowlers Blood Pressure Location Left Arm History Since Last Visit- (Skip if this is Patient's initial visit) Have you changed medications since your No last visit? Any new allergies or adverse reactions No Had a fall/change in ADL's that may No increase risk of falls Signs or symptoms of abuse and/or No neglect since last visit Have you been in the hospital since your No last visit? Has dressing in place as prescribed Yes Has compression in place as prescribed No Has offloadiing in place as prescribed No Experienced any changes in pain level or No management Pain Scale: 0-10 Numeric Is Patient Pain Free? No bilat feet -Description Aching -Intensity 8 -Duration (hours) Chronic -Pain Behavior Restlessness -Pain Aggravating Factors Exercise/ Activity -Alleviating Factors/Interventions Medication -Effectiveness of Alleviating Factor/ Minimally Intervention effective Lower Extremity Assessment/ Foot Assessment/ Toe Nail Assessment Right -Posterior Tibial Palpable Yes -Dorsalis Pedis Palpable Yes -Extremity Color Normal -Hair Growth on Legs Yes -Hair Growth on Toes No -Temperature of Extremity Cool -Capillary Refill Less than 3 Seconds -Dependent Rubor No -Blanched when Elevated No -Lipodermatosclerosis No -Charcot Joint Yes -Prior Amputation No -Thick Yes -Discolored Yes -Deformed Yes -Improper Length & Hygeine Yes Left -Posterior Tibial Palpable Yes -Dorsalis Pedis Palpable Yes -Extremity Color Normal -Hair Growth on Legs Yes -Hair Growth on Toes No -Temperature of Extremity Cool -Capillary Refill Less than 3 Seconds -Dependent Rubor No -Blanched when Elevated No -Lipodermatosclerosis No -Other Deformity No -Prior Foot Ulcer No -Charcot Joint Yes -Prior Amputation No -Thick Yes -Discolored Yes -Deformed Yes -Improper Length & Hygeine Yes Neuropathy Assessment Feet - Top Side and Bottom <Entered> (a) Communication Assessment Preferred language Egyptian Telehealth Nurse Educator Required No Able to Read Yes Able to Write Yes Communication Tools None Caregiver Communication Skills No Impairment Impairment Right Hearing Abillity Normal Left Hearing Abillity Normal Visual Assistive Devices Glasses Teaching Assessment Preferences Verbal,Written, Demonstration Readiness To Learn Good Willingness to Engage in Self Management Med Activies Readiness to Engage in Self Management Med Activities Anxiety Level Calm Cooperation Cooperative Perception Coherent Interest in Health Problem Asks Questions Education Importance Acknowledges Need Does Patient Smoke tobacco or other No substances Smoking Status Never smoker Functional Assessment Recent Decline in Ability to Perform Denies Any Declines Assistive Device With Patient No Culture/Congregational/Stocking Inspector Cultural/Congregational Needs that may affect No Treatment Plan Would you allow [facility] clinical document improvement educator to No meet you for the purpose of spiritual/ emotional support? Stocking Inspector to contact place of nondenominational No (a) 1 - _ throughtout WC - Nurse 1 - General Ulcer Measurement Start: 07/24/22 10:40 Freq: Status: Active Protocol: Activity Type Activity Date Activity User E-sign Co-sign Detail Recorded Client Recorded Date Recorded By Document 07/24/22 10:48 MARIAH [id number] 07/24/22 10:57 RB 07/24/22 10:48 Wound Center Nurse 1 4. L foot second toe -Combined with other wound No -Current Size (cm) - Length 0.1 -Current Size (cm) - Width 0.1 -Current Size (cm) - Depth 0.1 -Total Square Cm 0.01 -Photo Taken Yes -Tunneling No -Undermining/Tunneling No -Circular Undermining No -Exudate Amt None Present -Wound Margin Distinct, Outline Attached -Granulation Amt Small (1-33%) -Granulation Quality [place] -Slough/Fibrin Yes -Necrosis Amt Large (67-100%) -Necrotic Tissue Type Adherent Slough -Structure Exposed N/A -Texture (Jud-wound Skin Appearance) Callus -Moisture (Jud-wound Skin Appearance) Assessed -Color (Jud-wound Skin Appearance) Assessed -Temperature (Jud-wound Skin No Abnormality Appearance) (Pt Warm) -Tenderness on Palpation (Jud-wound No Skin Appearance) -Ulcer Cleansing Wound Cleanser -Foul Odor after Cleansing No -Anesthetic Used 5% Lidocaine Gel Lower Limb Edema Present Yes Right Calf (cm) 39 Right Ankle (cm) 24.5 Left Calf (cm) 39 Left Ankle (cm) 23.5 - Nurse 2 - General Ulcer CM Notes Start: 07/24/22 10:40 Freq: Status: Active Protocol: Activity Type Activity Date Activity User E-sign Co-sign Detail Recorded Client Recorded Date Recorded By Document 07/24/22 11:14 MW [id number] 07/24/22 11:25 MW 07/24/22 11:14 Wound Center Nurse 2 4. L foot second toe -Time 11:16 -Correct Patient Yes -Correct Side, Site, Position Yes -Correct Procedure Yes -Procedure Performed No Pain Scale: 0-10 Numeric Is Patient Pain Free? Yes - Nurse 3 - General Ulcer D/C NN Start: 07/24/22 10:40 Freq: Status: Active Protocol: Activity Type Activity Date Activity User E-sign Co-sign Detail Recorded Client Recorded Date Recorded By Document 07/24/22 11:26 MW [id number] 07/24/22 11:27 MW 07/24/22 11:26 Wound Care Center Nurse 3 4. L foot second toe -Other Covering aperture pad Treatment Response Procedure Tolerated Well Pain Scale: 0-10 Numeric Is Patient Pain Free? Yes Teaching: Wound Center Discharge Instructions -Person Taught Patient -Teaching Method Demonstration -Response to teaching Verbalize understanding WC - Visit Discharge Discharge Condition Stable Ambulatory Status Cane Accompanied by self Medication Reconcilliation completed & No provided to patient/care provider Clinical Summary of Care Provided Yes Notes: follow up with Dr. Cosme Charges/Coding Visit Charges Office Visits / Consults: 17577 OV L3 New Assessment/Plan Assessment/Plan (1) Neuropathy of both feet: CODE(S): G57.93 - Unspecified mononeuropathy of bilateral lower limbs (2) Foot deformity: CODE(S): M21.969 - Unspecified acquired deformity of unspecified lower leg (3) Callus of toe: CODE(S): L84 - Corns and callosities PLAN: Plan History of recurrent foot ulcerations. Has been following up closely with her command and control officer. Current area of concern is her left second toe. Partial amputationwas recommended however she declined. She states that she did not understand fully but on explanation today, she states that she is open to this measure. I believe this will be the most definitive to avoid recurrence. Repeated pressuredue to foot and toe deformity and neuropathy will lead to recurrent ulcerations with risk for infection, osteomyelitis and possible foot amputation. At this time, there is no open wound/ulcer so she was advised to follow-up with her command and control officer, she voiced understanding. In the meantime, an aperture foam was putin place to help with offloading, she was advised that she could do this daily as well. Continue other chronic care/management per podiatry. Discharge from the wound clinic. This note was generated with [employer] dictation software. It may contain incorrectwords, spelling, and punctuation that were not noted in checking the note beforesigning. 07/25/22 0479 <Electronically signed by Cliff Nguyen MD> Cosigner Signature (if applicable): CC: ~ Signed [facility] Work Phone: [phone] History of Present illness Narrative* Phuong Colvin, PT - 07/25/2022 1:04 PM EDT Episode Visit Count: 3 Therapist That Will Accept/Oversee The Plan Of Care: Phuong Colvin Start of Care Date: 06/02/22 Onset Date: 04/11/22 Plan of Care Certification Date: 06/02/22 Next Certification Due Date: 08/02/22 Patient Identified by Name and Date of : Yes REHABILITATION AND SPORTS THERAPY PHYSICAL THERAPY TREATMENT NOTE ASSESSMENT: Olga Lidia Tello tolerated the session with no issues. She demonstrated report of favorable response to treatment. The patient will continue to benefit from ongoing skilled physical therapy to progress toward set goals. PLAN FOR NEXT VISIT: Continue ROM, IASTM. Begin shoulder isometrics per pain tolerance. SUBJECTIVE: Patient Reason for Visit: Pt reports her shoulder is about the same as last time. It'sno worse. She felt that the massage (IASTM) helped it feel better the next couple days afterwards. Pain: Pain Pain Level: 8 Pain Location: Shoulder - Left, Upper Arm - Left, Elbow - Left Frequency: Continuous OBJECTIVE MEASURES WITH LEVEL OF FUNCTION: UE AROM L Shoulder Flex: (passive ROM suring pulleys to 95deg) TREATMENT: Therapeutic Exercise: 1: posterior shld circles x 20 2: L upper trap stretches 5 x 30 sec 3: scapular retractions 2 x10 4: shoulder pulleys for flexion x 7 min Skilled Intervention: Patient was educated in proper exercise technique and purpose for exercises. Reviewed and educated patient on additions/changes for home exercise program. Skilled judgment was provided in selection of appropriate interventions. Correct performance of therapeutic exercises was facilitated with verbal and visual cuing. Patient education as noted. Manual Therapy: 1: IASTM using [employer] scanner tool to L scalenes, upper traps with pressure to toelrance. Restrictions palpable (decreased from previous visit) and petecchiae reaction noted. Skilled Intervention: Manual skills to improve joint mobility, ROM, and decrease pain. Utilized anatomy knowledge of the therapist, and assessment of patient's response to intervention. Billing Therapeutic Exercise Treatment Minutes: 25 Manual TherapyTreatment Minutes: 15 Total Treatment Time Minutes (timed/untimed): 40 Phuong Colvin PT documented in [facility] History of Present illness Narrative* Phuong Colvin PT - 07/18/2022 8:09 AM EDT Episode Visit Count: 2 Therapist That Will Accept/Oversee The Plan Of Care: Phuong Colvin Start of Care Date: 06/02/22 Onset Date: 04/11/22 Plan of Care Certification Date: 06/02/22 Next Certification Due Date: 08/02/22 Patient Identified by Name and Date of : Yes REHABILITATION AND SPORTS THERAPY PHYSICAL THERAPY PROGRESS REPORT PLAN OF CARE UPDATE: Assessment: Olga Lidia Tello demonstrates improvements in none. She has been compliant with initial HEP. Patient continues to present with impairments in overall function, range of motion, strength, and symptom management that interfere with lifting, reaching overhead, use hand with arm at shoulder level, sleeping, reaching behind back (washing/brushinbg hair) . Current prognosis is Good due to: current objective clinical presentation, good overall health status, good support system/ coping skills, Prognosis may be limited due to multiple co- morbidities . She will benefit from continued skilled therapy services to meet the updated goals for this plan of care as noted below. Goals for Episode of Care: created on 06/02/22 through 08/02/22 Goals updated on 07/18/2022. [place] in home exercise program. (Met) Patient will decrease pain rating by 2 points to meet minimal clinical important difference for numeric pain rating scale. (Not Met) Patient will increase active ROM of L shoulder and cervical spine to Shld flex and abd 120 deg, and cervical lateral flex 40-45deg and rotation 60 deg to allow pt to to improve postural alignment and to improve performance of ADLs. (Partially Met) Patient will demonstrate increase in UE strength to 4 to 4+/5 during manual muscle testing in order to improve function for basic self-care tasks, home management tasks, and prior functional tasks. (Partially Met) Perform lifting;reaching overhead;use hand with arm at shoulder level;reaching behind back;feeding self;sleeping; with decreased report of symptoms/pain in 4-8 weeks. (Met for feeding self) Improve postural awareness. (Partially Met) Drive with no aggravation of pain/symptoms. (Not Met) Sleep throughout the night without pain/symptoms. (Not Met) Patient Goals: To be able to move the arm more and strengthen it. Patient Goals: To get rid of the paina nd use my arm better. Planned Interventions, Frequency, and Duration: 1x/week, 4 weeks Total Number of Visits Planned: 4 Patient to be seen for Therapeutic exercise (89693), Neuromuscular re-education (87891), Manual therapy (82302), Patient/Family/Caregiver Education PLAN FOR NEXT VISIT: Continue with L shld ROM and gentle activity. may add cervical retractions. May begin isometrics if tolerated. Continue with manual techniques for soft tissue restrictions. SUBJECTIVE: Patient Reason for Visit: Pt reports she has been having a lot of appointments for her foot, dealing with diabetic ulcers as why she has not been back to therapy in so long. Pt noting sheis still having significant pain in L shoulder, arm, neck. She is reporting compliance with HEP. Patient Goals: To get rid of the paina nd use my arm better. Functional Limitations: lifting, reaching overhead, use hand with arm at shoulder level, sleeping, reaching behind back (washing/brushinbg hair) Spine History Sleep Affected by Pain: Pain awakens Pain: Pain Pain Level: 8 Pain Location: Shoulder - Left, Upper Arm - Left, Elbow - Left Description: Sharp Frequency: Continuous Post Treatment Pain Post Treatment Pain Level: 8 PROMIS Scales Higher is Better 07/16/2022 02/15/2022 Phys Func - Score 33 (moderate dysfunction) 33 (moderate dysfunction) Phys Func - Percentile 4 % 4 % Self-Eff Symptom - Score 34 (Low) 39 (Low) Self-Eff Symptom - Percentile 5 % 14 % T-scores: mean of general population = 50. 5 points is clinically meaningfully difference Percentiles provide an indication of how the patient's score ranks in relation to the general population. Higher percentile rankings indicate better function/quality of life. 50th percentile is the average of the general population and indicates half of respondents had a worse score. OBJECTIVE MEASURES WITH LEVEL OF FUNCTION: Posture / Alignment Posture: Rounded shoulders Cervical Spine ROM Cervical Flexion AROM (degrees) : 55 Degrees (pain L neck) Cervical Extension AROM (degrees) : 25 Degrees (min pain) Cervical Side-Bend Right AROM (degrees): 45 Degrees Cervical Side-Bend Left AROM (degrees) : 35 Degrees (pain) Cervical Rotation Right AROM (degrees) : 45 Degrees (pain L proximal upper trap and scalenes) Cervical Rotation Left AROM (degrees) : 70 Degrees (minimal pain) UE AROM R Shoulder Flex: 120 Degrees R Shoulder ABduction: 115 Degrees (min pain) R Shoulder External Rotation: 20 Degrees (min pain) L Shoulder Flex: 90 Degrees L Shoulder ABduction: 103 Degrees (pain) L Shoulder External Rotation: 20 Degrees (pain) UE and Cervical Strength L UE Strength: biceps 4+/5, flex, abd 4-/5 pain, IR 4/5, ER 4-/5 pain TREATMENT: Therapeutic Exercise: 1: posterior shld circles x 20 2: L upper trap stretches 3 x 30 sec 3: shoulder pulleys for flexion x 7 min Skilled Intervention: Patient was educated in proper exercise technique and purpose for exercises. Reviewed and educated patient on additions/changes for home exercise program. Skilled judgment was provided in selection of appropriate interventions. Correct performance of therapeutic exercises was facilitated with verbal and visual cuing. Additional time necessary for objective measurements and reassessment due to plan of care update. Patient education as noted. Manual Therapy: 1: IASTM using [employer] scanner tool to L scalenes, upper traps with pressure to toelrance. Restrictions palpable and petecchiae reaction noted. Skilled Intervention: Manual skills to improve joint mobility, ROM, and decrease pain. Utilized anatomy knowledge of the therapist, and assessment of patient's response to intervention. Billing Therapeutic Exercise Treatment Minutes: 25 Manual TherapyTreatment Minutes: 15 Total Treatment Time Minutes (timed/untimed): 40 Phuong Colvin PT documented in this encounterF[facility]04-27-2023 Instructions* Patient Instructions* Jt Evans MD - 07/17/2022 9:56 AM EDT Images from the original note were not included. Bowel Preparation Instructions for: Golytely, Nulytely, Trilyte or Colyte (polyethylene glycol 3350and electrolytes) IF YOU DO NOT FOLLOW THESE DIRECTIONS, YOUR COLONOSCOPY WILL BE CANCELLED. [place] Instructions: Your bowel must be empty so that your doctor can clearly view your colon. Follow all of the instructions in this handout EXACTLY as they are written. Do NOT eat any solid food the ENTIRE day before your colonoscopy. Drink only clear liquids. Buy your bowel preparation at least 5 days before your colonoscopy. TRANSPORTATION on the Day of Your Exam A responsible person MUST be present with you at Check In prior to your colonoscopy and REMAIN in the endoscopy area until you are discharged. You are NOT ALLOWED to drive, take a taxi or bus, or leave the Endoscopy Center ALONE. If you do not have a responsible medical delivery driver (family member or friend) with you to take you home, your exam cannot be done with sedation and will be cancelled. Please bring a list of all of your current medications, including any Over-the Counter medications with you. Medications If you take insulin, diabetic medications or blood thinners such as Coumadin (warfarin), Plavix (clopidogrel), Ticlid (ticlopidine hydrochloride), Agrylin (anagrelide), Xarelto (Rivaroxaban), Pradaxa(Dabigatran), Eliquis (Apixaban), and Effient (Prasugrel). You MUST call the doctors who orders those medicines for instructions on altering the dosage before your colonoscopy. All other medications should be taken the day of the exam with a sip of water including ASPIRIN. Five (5) Days Before Your Colonoscopy Do NOT take medicines that stop diarrhea - such as Imodium, Kaopectate, or Pepto Bismol. Do NOT take fiber supplements - such as Metamucil, Citrucel, or Perdiem. Do NOT take products that contain iron - such as multi-vitamins (the label lists what is in the products). Do NOT take Vitamin E. Buy the prescription bowel preparation solution at your local pharmacy [facility] 02/2019 Bowel Preparation Instructions for: Golytely, Nulytely, Trilyte or Colyte (polyethylene glycol 3350and electrolytes) Three (3) Days Before Your Colonoscopy Do NOT eat high-fiber foods - such as popcorn, beans, seeds (flax, sunflower, quinoa), multigrain bread, nuts, salad/vegetables, or fresh and dried fruit. One (1) Day Before Your Colonoscopy Only drink clear liquids the ENTIRE DAY before your colonoscopy. Do NOT eat any solid foods. Drink at least 8 ounces of clear liquids every hour after waking up. The clear liquids you can drink include: Clear Liquid (NO RED LIQUIDS) DO NOT DRINK Gatorade, Pedialyte or Powerade Clear broth or bouillon Coffee or tea (no milk or non-dairy creamer) Carbonated and non-carbonated soft drinks Gera-Aid or other fruit flavored drinks Strained fruit juices (no pulp) Jell-O, popsicles, hard candy Water Alcohol Milk or non-dairy creamers Noodles or vegetables in soup Juice with pulp Liquid you cannot see through Do not use tobacco/vaping products The bowel preparation solution will be consumed in two parts. Mix the solution the evening before your colonoscopy and refrigerate before drinking. You may add the flavor pack that came with the bowel preparation. Do NOT add ice, sugar or any other flavorings to the solution. Part 1 At 6:00 PM - Evening before your colonoscopy Drink an 8-oz glass of bowel preparation every 10 minutes for a total of 8 glasses. You may continue to drink clear liquids until midnight. Part 2 On the day of your colonoscopy you may drink clear liquids up to (three) 3 hours before your procedure. 4 1/2 hours before your colonoscopy Drink an 8-oz glass of bowel preparation every 10 minutes for a total of 8 glasses. Fifteen (15) minutes later, drink an 8-oz glass of clear liquids every 15 minutes for a total of 2 glasses. You may continue to drink clear liquids up to (three) 3 hours before your exam. 2 02/2019 documented in this encounterFulton [facility]04-27-2023 History of Present illness Narrative* Jt Evans MD - 07/17/2022 9:52 AM EDT HISTORY AND PHYSICAL Olga Lidia Tello 1970 REFERRING PHYSICIAN: Pedro Patricia APRN.NU[employer] WORKER CHIEF COMPLAINT: Consult (colonoscopy) HPI: The patient is a 51 year old female referred for endoscopy. Olga Lidia notes some left sided colon issues and has IBS - D The patient noted some GERD but controlled with prilosec Olga Lidia has undergone prior endoscopy. Dr. Reyes did upper and lower endoscopy in 2016. Both were normal. She has since found her father had colon cancer. She now remembered she underwent upper and lower endoscopy in [place] in the last year. She was foundto have active gastritis. She had a hyperplastic polyp removed in the cecum but did not have randomcolon biopsies. The patient is being seen by me today at the request of Dr. Lulu Luciano MD for my opinion and advice regarding high risk screening. 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 Talha gannon MRA in 2012 Benign paroxysmal positional vertigo not an issue since 2006 Cataract Chronic cholecystitis 2008 Diabetes (HCC) Dizziness and giddiness Elevated AST (SGOT) 10/16/2011 Esophageal reflux Excessive or frequent menstruation 06/19/2008 Family history of cardiac disorder in mother 12/23/2013 Fibromyalgia Hallux valgus (acquired) 01/12/2006 Hx-TIA (transient ischemic attack) January 2012 [place] Mixed hyperlipidemia 03/19/2006 Resolved Morbid obesity with BMI of 40.0-44.9, adult (HCC) 09/12/2014 Myalgia and myositis, unspecified Neuropathy Dr. Schmidt managing [place]IL[place] (obstructive sleep apnea) non compliant with CPAP Other enthesopathy of ankle and tarsus 01/12/2006 Other osteoporosis Restless leg syndrome 08/16/2015 Dr. Schmidt managing Retinal detachment 08/17/2015 PAST SURGICAL HISTORY Procedure Laterality Date CATARACT EXTRACTION HX Right 05/2015 COLONOSCOPY FLX DX W/COLLJ SPEC WHEN PFRMD 08/22/2015 Colonoscopy (MAC) ENDOMETRIAL BX W/WO ENDOCERVIX BX W/O DILAT SPX 06/01/2008 Irregular Menses, Menorrhagia and Thickened Lining ESOPHAGOGASTRODUODENOSCOPY TRANSORAL DIAGNOSTIC 08/22/2015 EGD (MAC) INSERTION OF IUD 07/2017 LAPAROSCOPY SURG CHOLECYSTECTOMY 08/19/2007 PAST SURGICAL HISTORY OF x 4 PAST SURGICAL HISTORY OF 2022 foot surgery, multiple bilat PAST SURGICAL HISTORY OF bilateral ankle fractures PAST SURGICAL HISTORY OF 06/30/2014 right 2nd toe arthroplasty with tenotomies 3rd, 4th, and 5th toe - [facility]- Dr. Conteh PAST SURGICAL HISTORY OF Right 04/2015 retinal tear PAST SURGICAL HISTORY OF Right right knee surgery TONSILLECTOMY & ADENOIDECTOMY <AGE 11 Current Outpatient Medications Medication Sig gabapentin (NEURONTIN) 800 mg tablet Take 1 tablet by mouth twice daily for 90 days. dulaglutide (TRULICITY) 3 mg/0.5 mL pen injector Inject 3 mg subcutaneously one time a week. cholecalciferol, Vitamin D3, (VITAMIN D3) 1,250 mcg (50,000 unit) cap capsule Take 1 capsule by mouth one time a week. DULoxetine (CYMBALTA) 60 mg capsule Take 2 capsules by mouth once daily. omeprazole (PRILOSEC) 20 mg capsule Take 1 capsule by mouth daily before breakfast. 1/2 hr before meal. ibuprofen (MOTRIN) 800 mg tablet Take 1 tablet by mouth every 8 hours as needed for pain. Lancets lancets Test blood sugar(s) once daily. Dx: E11.9. New onset type 2 diabetes Insulin: No metFORMIN (GLUCOPHAGE) 500 mg tablet Take 2 tablets by mouth twice daily with meals. ferrous sulfate 325 mg (65 mg iron) tablet Take 325 mg by mouth once daily. Lancing Device (LANCING DEVICE WITH LANCETS[place] [facility] [place] once daily No current facility-administered medications for this visit. ALLERGIES: Patient has no known allergies. PERSONAL HISTORY: Social History Tobacco Use Smoking status: Never Smokeless tobacco: Never Vaping Use Vaping Use: Never used Substance Use Topics Alcohol use: Not Currently Drug use: No FAMILY HISTORY: FAMILY HISTORY Problem Relation Age of Onset Heart Mother other (fibroids) Mother Heart Father Arthritis Father Colon Cancer Father diagnosed at 74yo; has colostomy Alzheimer's Disease Father Psychiatry Maternal Grandmother Suicide Cancer Paternal Grandmother Breast Cancer Paternal Aunt Brain Cancer Paternal Aunt Uterine cancer REVIEW OF SYMPTOMS: The review of systems data was entered by the nurse and reviewed by ca Nursing Notes: Keyona ArreguinJACOB 07/17/2022 9:43 AM Signed REVIEW OF SYSTEMS: General: The patient notes fatigue, notes weight loss, notes weight gain, notes feeling hot, and denies feelings of cold. Eyes: The patient denies glaucoma, notes eye injury/surgery, wears glasses or contacts. Ear/Nose/Throat: The patient denies allergies, denies hayfever, denies ear infections, and denies bloody noses. Cardiovascular: The patient denies chest pain, denies heart disease, denies high blood pressure,denies cardiac stent, denies prior heart attack, denies irregular heart beat, denies high cholesterol, denies poor circulation, denies heart failure, other cardiac issues, notes claudication, notes cold feet, denies peripheral arterial stent. Respiratory: The patient denies tuberculosis, notes pneumonia, denies frequent cough, denies pulmonary embolism, notes shortness of breath, and denies coughing up blood. Gastrointestinal: The patient denies difficulty swallowing, notes acid reflux, denies ulcers, denies vomiting, denies jaundice/hepatitis, notes gallbladder problems, denies black or tarry stools, denies hemorrhoids, denies bleeding from rectum, denies diverticulitis, denies constipation, notes diarrhea, denies loss of stool control, and denies hernias. Kidney/Bladder: The patient notes kidney stones, notes urine infections, and denies bloody urine. Skin: The patient denies a history of skin cancer, denies bleeding/changing moles, and denies a history of skin rash. Neurologic: The patient denies a history of epilepsy/convulsions, notes headaches, denies head/spinal injuries, and notes stroke/TIA. Psychiatric: The patient denies psychiatric medications, notes depression, and denies voices, denies substance abuse. Endocrine: The patient denies thyroid disorders, notes diabetes, and denies hormonal problems. Hematologic: The patient denies a history of bruising, denies bleeding, and denies anemia, denies blood clots. Infections: The patient denies a history of measles and mumps, denies rheumatic fever, and notes sexually transmitted diseases. Musculoskeletal: The patient denies back pain/injury, denies back problems, denies sciatica, notes knee/foot trouble, notes arthritis, or denies gout. When was patient's last Mammogram screening? 2022 Last Colonoscopy: states had one last year doesn't know where had done. Keyona ArreguinJCAOB PHYSICAL EXAMINATION: General: The patient is 51 year old female, well nourished, well hydrated in no acute distress. Thepatient is oriented to time, place, and person. VITALS: Blood pressure 130/84, pulse 101, temperature 36.2 C (97.2 F), height 180.3 cm (5' 11), weight 127 kg (280 lb), last menstrual period 06/11/2022, SpO2 95 %. Body mass index is 39.05 kg/m . HEENT: Normal cephalic, ataumatic, pupils are equally round, sclera are anicteric, mucous membranesare moist, oropharynx is clear. Neck has no masses, asymmetry or lymphadenopathy. Thyroid is unremarkable. Respiratory: Clear to auscultation and percussion. Normal respiratory excursion and pattern. Cardiac: Examination is regular rate and rhythm. Abdominal exam: Soft, nontender, with no palpable masses. No hepatosplenomegaly. No palpable hernias. Rectal exam: exam deferred Extremities: no clubbing, cyanosis or edema. No adenopathy. Other: LABORATORY VALUES: As Noted RADIOLOGIC STUDIES: As Noted Assessment IMPRESSION: family history of colon cancer PLAN: I plan to perform upper and lower endoscopy. We discussed the risks and benefits of the planned endoscopy. I have informed the patient that complications can occur including failure to completethe endoscopy and perforation. The patient had the opportunity to ask questions concerning the planned endoscopy. My staff has also explained the procedure to the patient in understandable terms and has given the patient printed material concerning the procedure. The patient freely consents to surgery. I plan to use golytely bowel preparation for endoscopy Diagnoses: (R19.4) Change in bowel habits (primary encounter diagnosis) (Z80.0) Family history of colon cancer in father (Z12.11) Screening for colon cancer (R14.0) Bloating My findings have been communicated to Dr. Lulu Luciano MD via shared medical record. This note will be forwarded to Dr. Lulu Luciano MD. Return to Clinic: The patient is instructed to follow-up with me after the testing has been completed. Jt Evans MD documented in this encounterFult[facility]04-27-2023 Nurse Note* Keyona Arreguin, TOPPIECE CHOPPER - 07/17/2022 9:36 AM EDT REVIEW OF SYSTEMS: General: The patient notes fatigue, notes weight loss, notes weight gain, notes feeling hot, and denies feelings of cold. Eyes: The patient denies glaucoma, notes eye injury/surgery, wears glasses or contacts. Ear/Nose/Throat: The patient denies allergies, denies hayfever, denies ear infections, and denies bloody noses. Cardiovascular: The patient denies chest pain, denies heart disease, denies high blood pressure,denies cardiac stent, denies prior heart attack, denies irregular heart beat, denies high cholesterol, denies poor circulation, denies heart failure, other cardiac issues, notes claudication, notes cold feet, denies peripheral arterial stent. Respiratory: The patient denies tuberculosis, notes pneumonia, denies frequent cough, denies pulmonary embolism, notes shortness of breath, and denies coughing up blood. Gastrointestinal: The patient denies difficulty swallowing, notes acid reflux, denies ulcers, denies vomiting, denies jaundice/hepatitis, notes gallbladder problems, denies black or tarry stools, denies hemorrhoids, denies bleeding from rectum, denies diverticulitis, denies constipation, notes diarrhea, denies loss of stool control, and denies hernias. Kidney/Bladder: The patient notes kidney stones, notes urine infections, and denies bloody urine. Skin: The patient denies a history of skin cancer, denies bleeding/changing moles, and denies a history of skin rash. Neurologic: The patient denies a history of epilepsy/convulsions, notes headaches, denies head/spinal injuries, and notes stroke/TIA. Psychiatric: The patient denies psychiatric medications, notes depression, and denies voices, denies substance abuse. Endocrine: The patient denies thyroid disorders, notes diabetes, and denies hormonal problems. Hematologic: The patient denies a history of bruising, denies bleeding, and denies anemia, denies blood clots. Infections: The patient denies a history of measles and mumps, denies rheumatic fever, and notes sexually transmitted diseases. Musculoskeletal: The patient denies back pain/injury, denies back problems, denies sciatica, notes knee/foot trouble, notes arthritis, or denies gout. When was patient's last Mammogram screening? 2022 Last Colonoscopy: states had one last year doesn't know where had done. Keyona Arreguin LPN documented in this encounterFulton [facility]04-26-2023 Miscellaneous Notes* Telephone Encounter - Pedro Patricia APRN.CNP - 07/16/2022 12:49 PM EDT Handicap parking form printed, will sign, please mail and let patient know once sent. Thanks! documented in this encounterFulton County [facility] Center04-26-2023 Miscellaneous Notes* Letter - Mammography Coordinator - 07/16/2022 8:32 AM EDT July 17, 2022 PID: [id number] Olga Lidia Tello [address] [place] [address] Dear Ms. Tello, We are pleased to inform you that the results of your recent breast imaging exam on 07/16/2022 are normal. Early detection of cancer is very important. We also understand recommendations regarding breast cancer screening are controversial. Please discuss with your primary care provider which strategy is best for you and whether a mammogram is right for you. Your imaging studies and report will be kept on file at [facility] as part of your permanent medical record and are available for your continuing care. Thank you for allowing us to help in meeting your health care needs. Sincerely, Dr. Burnett Interpreting Radiologist [facility] (Normal over 40) documented in this encounterFulton [facility] Center04-26-[facility]23 History of Present illness Narrative* Amanda Zarco Mammo Tech - 07/16/2022 7:30 AM EDT Radiology Service Progress Note PATIENT NAME: Olga Lidia Tello DATE OF SERVICE: July 16, 2022 TIME: 7:30 AM PATIENT IDENTITY VERIFICATION COMPLETED USING TWO (2) IDENTIFIERS: Name and Date of confirmedby patient verbally. FALL SCREENING: Has the patient had 2 falls in the last year or 1 fall with injury or currently using an Ambulatory Assistive Device (Walker, Cane, Wheelchair, Crutches, etc.)? No PATIENT GENDER DATA: Female. status: : No status: NO. PATIENT RELEVANT IMPLANT DATA REVIEWED: Not Applicable RADIOLOGY DEPARTMENT: Mammography PERIPHERAL IV DATA: Not applicable SIGNED BY: Moreno Ambrocio July 16, 2022 7:30 AM documented in this encounterFult[facility]04-[facility]23 History of Past illness Narrative* Problem Noted Date Diagnosed Date Resolved Date Stage 3 chronic kidney disease 07/15/2022 07/02/2023 Left lower quadrant pain 08/22/201503/2015 Dyspepsia 08/22/2015 08/22/2015 TIA (transient ischemic attack) 08/16/2015 08/17/2015 Morbid obesity with BMI of 40.0-44.9, adult 09/12/2014 09/16/2017 documented as of this encounter (statuses as of 07/02/2023) [place] [address]-25-2023 History of Past illness Narrative* Problem Noted Date Diagnosed Date Resolved Date Stage 3 chronic kidney disease 07/15/2022 07/02/2023 Left lower quadrant pain 08/22/201503/2015 Dyspepsia 08/22/2015 08/22/2015 TIA (transient ischemic attack) 08/16/2015 08/17/2015 Morbid obesity with BMI of 40.0-44.9, adult 09/12/2014 09/16/2017 documented as of this encounter (statuses as of 07/03/2023) [place] [address]-25-2023 History of Past illness Narrative* Problem Noted Date Diagnosed Date Resolved Date Stage 3 chronic kidney disease 07/15/2022 07/02/2023 Left lower quadrant pain 08/22/201503/2015 Dyspepsia 08/22/2015 08/22/2015 TIA (transient ischemic attack) 08/16/2015 08/17/2015 Morbid obesity with BMI of 40.0-44.9, adult 09/12/2014 09/16/2017 documented as of this encounter (statuses as of 07/10/2023) [place] [address]-25-2023 History of Past illness Narrative* Problem Noted Date Diagnosed Date Resolved Date Stage 3 chronic kidney disease 07/15/2022 07/02/2023 Left lower quadrant pain 08/22/201503/2015 Dyspepsia 08/22/2015 08/22/2015 TIA (transient ischemic attack) 08/16/2015 08/17/2015 Morbid obesity with BMI of 40.0-44.9, adult 09/12/2014 09/16/2017 documented as of this encounter (statuses as of 07/12/2023) [place] [address]-25-2023 Miscellaneous Notes* Telephone Encounter - Pedro Patricia APRN.CNP - 07/15/2022 8:29 AM EDT Discussed at appointment this am, see encounter note documented in this encounterFulton [facility]04-17-2023 Miscellaneous Notes* Telephone Encounter - Kanika Malone LPN - 07/07/2022 1:26 PM EDT Last office visit: 05/26/22 Next appointment scheduled: 07/07/22 but no showed for appointment. Patient phones requesting refills as follows: Requested Prescriptions Pending Prescriptions Disp Refills pregabalin (LYRICA) 300 mg capsule 180 capsule 0 Sig: Take 1 capsule by mouth twice daily for 7 days. Please review and advise. Kanika Malone LPN documented in this encounterFulton County [facility] Center04-16-2023 Hospital Discharge instructions Patient Education 07/06/2022 07:50:27 Treating Peripheral Neuropathy Treating Peripheral Neuropathy Peripheral neuropathy is a disease of the nerves. It most often starts in your feet and may also eventually affect the arms. It may cause pain or may make you unable to sense pain. Sometimes, weakness occurs as well. Lack of pain and weakness makes you more likely to injure yourself without knowingit. Learn ways to protect your feet. Check your feet daily for wounds you may not have felt. Avoid agarwal by testing bath water with your elbow before stepping in. Also, always wear shoes to prevent injury. Regular foot care If you have foot numbness, you may not notice cutting yourself while trimming your nails. To prevent problems, your healthcare provider may ask you to visit for nail and callus trimming. See your provider for foot care as often as suggested. Check your feet daily Catch problems early by checking your feet every day for changes. Look at the top and bottom of your feet, your heels, and between your toes. It may help to use a mirror. If this is hard, ask someoneto check for you. Call your healthcare provider if you notice a wound, ulceration, ingrown nail, orany changes in your feet. This includes increased heat, swelling, numbness, tingling, pain, and redn ess. Wear proper footwear Always wear shoes and socks, even indoors. Ask your healthcare provider how to choose the right shoe. After buying shoes, bring them to your doctor to be checked for proper fit. Take new shoes off every hour or so to check for red pressure areas on your feet. Each time you put on your shoes, use your fingers first to feel inside for foreign objects. Common causes of peripheral neuropathy Some common causes of peripheral neuropathy include: Diabetes or other endocrine disorders Toxins (such as alcohol) Nutritional deficiencies (such as Vitamin B-12) Kidney disease Injury Repetitive stress (such as carpal tunnel syndrome) Autoimmune disease Cancer and tumors Chemotherapy Arthritis Advanced age Heredity Infection Diagnosis and treatment Diagnosis of peripheral neuropathy includes a complete history and physical exam. Lab tests including blood work and imaging often help determine the cause. Special nerve tests are often helpful including nerve conduction velocity studies (NCV), and electromyography (EMG). Treatment focuses on treating the underlying disorder and treating symptoms through the use of medicines, injections, TENS (transcutaneous electrical nerve stimulation), acupuncture, massage, and other methods. 9592-7266 [employer] [address] [place] [address], [place] [address]. All rights reserved. This information is not intended as a substitute for professional medical care. Always follow yourhealthcare professional's instructions. 07/06/2022 07:50:26 Diabetes: Treating Minor Foot Infections Diabetes: Treating Minor Foot Infections Diabetes makes it harder for the body to heal. Even minor foot problems, like a blister, can becomeinfected. If not treated, infections can spread and damage nearby tissues. You may need treatment in the hospital. Serious infections can result in loss of a foot. Quick care by your healthcare provider can help clear up infections and prevent serious problems. Get treatment If your healthcare provider finds a minor foot infection, you ll be started on treatment. The goal is to heal the infected area and prevent spread of the infection. Your provider will check and clean the infected part. He or she will measure the length, width, and depth of the infected area. That way, your wound careteam can tell if the wound is healing or getting larger from one visit to the next. Your provider may give you antibiotics to fight the infection. Take your antibiotic as instructed on the bottle. Take all the medicines you are given, even if the sore starts to look better. If you don t, the infection will not go away and may spread. You may be asked to keep the infected area dry. You may be told to keep your feet raised or to limit walking. Swelling of the foot with fluid hampers wound healing. Follow any instructions you are given about changing bandages or soaking your foot. Follow-up care When you have diabetes, a foot infection may take a long time to heal. That may even be the case ifyou take antibiotics or have other treatments. For best results, be sure to keep all your follow-upvisits with your healthcare provider. He or she can then make sure you re healing the right way. When to call your healthcare provider Check your feet every day. Use a mirror to look at the bottoms. Call your healthcare provider rightaway if you have any open or infected areas on your feet. Watch for these signs of an infection: Soreness Redness Warmth Swelling Drainage Also call your healthcare provider if you have any of these: Corns, calluses, or bunions on your feet Swelling of feet or legs An ingrown toenail Itching or cracking between your toes Constantly cold feet Pain or cramps in your legs or feet while walking Changes in skin color 8536-2950 [employer] [address] [place] [address]. All rights reserved. This information is not intended as a substitute for professional medical care. Always follow yourhealthcare professional's instructions. Follow Up Care 07/06/2022 07:30:13 With:DIOMEDES COSME Address: [address] [place] [address], [address] [facility] [place] [address]- Business (1) When:1-2 days Comments:Follow-up with your command and control officer tomorrow as previously scheduled. Keep wound clean and dry. Take antibiotics as prescribed. Return if worsening or concerning symptoms [facility] 04-16-2023 Note Discharge Instructions Thank you for allowing [facility] to assist you with your healthcare needs. The following is importantdischarge information regarding your hospital visit. Diagnosis from Today's Visit Diabetic foot infection Toe pain-swelling What to Do Next Instructions from Your Care Team No qualifying data available. Post Acute Orders No qualifying data available. You Need to Schedule the Following Appointments Follow Up with DIOMEDES COSME When Within 1-2 days Why: Follow-up with your command and control officer tomorrow as previously scheduled. Keep wound clean and dry. Take antibiotics as prescribed. Return if worsening or concerning symptoms Where: [address] [place] [address], [address] [facility] [place] [address] Business (1) Allergies NKA Medications Please ask your primary doctor or pharmacist before taking any other medication not listed, including over the counter drugs, herbal medications, vitamins and or supplements as they may interact withyour home medications. What How Much When Instructions Last Dose New cephalexin (cephalexin 500 mg oral capsule) 1 cap by mouth Four (4) times a day Duration: 7 Days Printed Prescription New sulfamethoxazole-trimethoprim (Bactrim DS 800 mg-160 mg oral tablet) 1 tab(s) by mouth Two (2) times a day Duration: 7 Days Printed Prescription Unchanged cholecalciferol (D3-50 (50,000 units) oral capsule) 1 cap by mouth Every week Unchanged dulaglutide (Trulicity Pen 1.5 mg/ 0.5 mL subcutaneous solution) 0.5 Milliliter Subcutaneous Every week Unchanged DULoxetine (DULoxetine 60 mg oral delayed release capsule) 2 cap by mouth Once a day Unchanged ferrous sulfate (ferrous sulfate 300 mg oral tablet) 1 tab(s) by mouth Every day Unchanged metFORMIN (metFORMIN 1000 mg oral tablet) 1 tab(s) by mouth Two (2) times a day Unchanged multivitamin (Multivitamin) 1 tab(s) by mouth Every day Unchanged omega-3 polyunsaturated fatty acids ([place]-3 1000 mg oral capsule) 1 cap by mouth Four (4) times a day Unchanged omeprazole 20 Milligram by mouth Once a day Unchanged pregabalin (Lyrica 300 mg oral capsule) 1 cap by mouth Four (4) times a day Please take this list to your next doctor s visit. Bring all medications you take, including over the counter medications, herbals and other supplements with you to your doctor s visit. Patients and families are reminded to discard old lists and to update any records with all medication providers or retail pharmacies. Education Materials Treating Peripheral Neuropathy Peripheral neuropathy is a disease of the nerves. It most often starts in your feet and may also eventually affect the arms. It may cause pain or may make you unable to sense pain. Sometimes, weakness occurs as well. Lack of pain and weakness makes you more likely to injure yourself without knowingit. Learn ways to protect your feet. Check your feet daily for wounds you may not have felt. Avoid agarwal by testing bath water with your elbow before stepping in. Also, always wear shoes to prevent injury. Regular foot care If you have foot numbness, you may not notice cutting yourself while trimming your nails. To prevent problems, your healthcare provider may ask you to visit for nail and callus trimming. See your provider for foot care as often as suggested. Check your feet daily Catch problems early by checking your feet every day for changes. Look at the top and bottom of your feet, your heels, and between your toes. It may help to use a mirror. If this is hard, ask someoneto check for you. Call your healthcare provider if you notice a wound, ulceration, ingrown nail, orany changes in your feet. This includes increased heat, swelling, numbness, tingling, pain, and redn ess. Wear proper footwear Always wear shoes and socks, even indoors. Ask your healthcare provider how to choose the right shoe. After buying shoes, bring them to your doctor to be checked for proper fit. Take new shoes off every hour or so to check for red pressure areas on your feet. Each time you put on your shoes, use your fingers first to feel inside for foreign objects. Common causes of peripheral neuropathy Some common causes of peripheral neuropathy include: Diabetes or other endocrine disorders Toxins (such as alcohol) Nutritional deficiencies (such as Vitamin B-12) Kidney disease Injury Repetitive stress (such as carpal tunnel syndrome) Autoimmune disease Cancer and tumors Chemotherapy Arthritis Advanced age Heredity Infection Diagnosis and treatment Diagnosis of peripheral neuropathy includes a complete history and physical exam. Lab tests including blood work and imaging often help determine the cause. Special nerve tests are often helpful including nerve conduction velocity studies (NCV), and electromyography (EMG). Treatment focuses on treating the underlying disorder and treating symptoms through the use of medicines, injections, TENS (transcutaneous electrical nerve stimulation), acupuncture, massage, and other methods. [phone] [employer] [address] [place] [address]. All rights reserved. This information is not intended as a substitute for professional medical care. Always follow yourhealthcare professional's instructions. Diabetes: Treating Minor Foot Infections Diabetes makes it harder for the body to heal. Even minor foot problems, like a blister, can becomeinfected. If not treated, infections can spread and damage nearby tissues. You may need treatment in the hospital. Serious infections can result in loss of a foot. Quick care by your healthcare provider can help clear up infections and prevent serious problems. Get treatment If your healthcare provider finds a minor foot infection, you ll be started on treatment. The goal is to heal the infected area and prevent spread of the infection. Your provider will check and clean the infected part. He or she will measure the length, width, and depth of the infected area. That way, your wound careteam can tell if the wound is healing or getting larger from one visit to the next. Your provider may give you antibiotics to fight the infection. Take your antibiotic as instructed on the bottle. Take all the medicines you are given, even if the sore starts to look better. If you don t, the infection will not go away and may spread. You may be asked to keep the infected area dry. You may be told to keep your feet raised or to limit walking. Swelling of the foot with fluid hampers wound healing. Follow any instructions you are given about changing bandages or soaking your foot. Follow-up care When you have diabetes, a foot infection may take a long time to heal. That may even be the case ifyou take antibiotics or have other treatments. For best results, be sure to keep all your follow-upvisits with your healthcare provider. He or she can then make sure you re healing the right way. When to call your healthcare provider Check your feet every day. Use a mirror to look at the bottoms. Call your healthcare provider rightaway if you have any open or infected areas on your feet. Watch for these signs of an infection: Soreness Redness Warmth Swelling Drainage Also call your healthcare provider if you have any of these: Corns, calluses, or bunions on your feet Swelling of feet or legs An ingrown toenail Itching or cracking between your toes Constantly cold feet Pain or cramps in your legs or feet while walking Changes in skin color 4830-0904 [employer] [address] [place] [address]. All rights reserved. This information is not intended as a substitute for professional medical care. Always follow yourhealthcare professional's instructions. Additional Information VACCINATE! IT SAVES LIVES! Members of the community who have not yet received the COVID-19 vaccine and would like to receive it can visit one of [facility] vaccine clinics. There are many vaccine clinic locations within the [facility]. For locations and available times, please visit www.gettheshot.coronavirus.[place].gov/. It is important to note that some COVID mobile vaccine clinics are held outdoors and may be canceled in rainy or stormy conditions. To learn more about pediatric vaccinations (ages 5-11), we invite you to visit the [facility] webpage. https://www.[facility].org/pages/8925-Yyqtg-Whagacndgxa-Piomxgbanu-Rqzbu-[email or web address] stions.htmlTo learn more about the COVID-19 vaccine, we invite you to visit the CDC website for a list of frequently asked questions. https://www.cdc.gov/coronavirus/2019-ncov/vaccines/faq.html [facility] [employer] Patient Portal Access Instructions: Stay connected with your healthcare team and access your personal medical information anytime with the [employer] Patient Portal. If you would like a full copy of your medical records please contact the [facility] Medical Records Department Thursday through Thursday between 8a.m. and 4:30p.m. Please follow the directions below to access the portal: 1.Access the email account you provided upon registration to the [facility].2.Look for an invitation email from [facility].3.Open the email and access the invitation link: Accept [facility] to [facility].Fill in the required gonzalez to create your account. Sign into www.[employer] with your username and password that you created in the above steps to stay up to date. You can then view a summary of results, a summary of your visits, and the ability to download your summaries to your computer or send the information securely to a physician. Remember that your healthcare information is confidential, so carefully consider who you will allow to register on the [facility] Patient Portal for access to your information. You can also access the [employer] Patient Portal on the [employer]. Simply click on Health Records under [facility] and then click on the [employer] logo. HOW TO SAFELY DISPOSE OF PRESCRIPTION MEDICATIONS Please use one of the following methods to safely dispose of your unused medications. 1.Use a drug disposal kit: the drug disposal pouch allows you to safely discard your old and unuseddrugs. Ask your nurse to give you one when you are discharged.2.Visit a local take-back location: Many local pharmacies and police departments have programs that collect old and unwanted prescriptiondrugs. Call your local pharmacy or go to http://bit.[employer] Domain/6D6Pc4t to find one close to you.3.Make use of household items: Use cat litter or old coffee grounds to dispose medications if other options arenot available. Mix your drugs with these household products, seal them in an airtight container andthrow it into the garbage. Call [facility]: [phone] to be sure your drugs can be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 the wound [id number] [employer] [address] [place] [address]68. All rights reserved. This information is not intended as a substitute for professional medical care. Always follow yourhealthcare professional's instructions. Follow Up Care 05/26/2022 21:35:40 With:LULU LUCIANO MD Address: [address] [place] [address] [place] [address]- When:2-4 days [facility] 03-06-2023 Note ORIGINAL EXAMINATION: TWO XRAY VIEWS OF THE RIGHT TIBIA/FIBULA 05/26/2022 10:36 pm COMPARISON: None. HISTORY: ORDERING SYSTEM PROVIDED HISTORY: Reason for Exam: trauma FINDINGS: No acute fracture. Postsurgical changes of the ankle and foot and knee. 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 IMPRESSION: No acute fracture. Interpreted by: Yaakov Jackson Preliminary Report By: Yaakov Jackson Electronically signed By Yaakov Jackson Dictated Date: 05/26/2022 10:49:11 PM Prelim Date: 05/26/2022 10:49:50 PM Sign Date: 05/26/2022 10:49:50 PM [facility] Note ORIGINAL EXAMINATION: TWO XRAY VIEWS OF THE RIGHT TIBIA/FIBULA 05/26/2022 10:36 pm COMPARISON: None. HISTORY: ORDERING SYSTEM PROVIDED HISTORY: Reason for Exam: trauma FINDINGS: No acute fracture. Postsurgical changes of the ankle and foot and knee. 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 IMPRESSION: No acute fracture. Interpreted by: Yaakov Jackson Preliminary Report By: Yaakov Jackson Electronically signed By Yaakov Jackson Dictated Date: 05/26/2022 10:49:11 PM Prelim Date: 05/26/2022 10:49:50 PM Sign Date: 05/26/2022 10:49:50 PM Ordering Provider: [facility]03-06-[facility]23 Emergency department Discharge summary Discharge Instructions Thank you for allowing [facility] to assist you with your healthcare needs. The following is importantdischarge information regarding your hospital visit. Diagnosis from Today's Visit Leg pain Abrasion, lower leg Leg injury - Minor What to Do Next Instructions from Your Care Team No qualifying data available. Post Acute Orders No qualifying data available. You Need to Schedule the Following Appointments Follow Up with LULU LUCIANO MD When Within 2-4 days Where: [address] [place] [address]- Allergies NKA Immunizations This Visit Not Given Vaccine Commentstetanus/diphth/pertuss (Tdap) adult/adol Contraindicated - Do not give Medications Please ask your primary doctor or pharmacist before taking any other medication not listed, including over the counter drugs, herbal medications, vitamins and or supplements as they may interact withyour home medications. What How Much When Instructions Last Dose Unchanged cholecalciferol (D3-50 (50,000 units) oral capsule) 1 cap by mouth Every week Unchanged dulaglutide (Trulicity Pen 1.5 mg/ 0.5 mL subcutaneous solution) 0.5 Milliliter Subcutaneous Every week Unchanged DULoxetine (DULoxetine 60 mg oral delayed release capsule) 2 cap by mouth Once a day Unchanged ferrous sulfate (ferrous sulfate 300 mg oral tablet) 1 tab(s) by mouth Every day Unchanged metFORMIN (metFORMIN 1000 mg oral tablet) 1 tab(s) by mouth Two (2) times a day Unchanged multivitamin (Multivitamin) 1 tab(s) by mouth Every day Unchanged omega-3 polyunsaturated fatty acids ([place]-3 1000 mg oral capsule) 1 cap by mouth Four (4) times a day Unchanged omeprazole 20 Milligram by mouth Once a day Unchanged pregabalin (Lyrica 300 mg oral capsule) 1 cap by mouth Four (4) times a day Please take this list to your next doctor s visit. Bring all medications you take, including over the counter medications, herbals and other supplements with you to your doctor s visit. Patients and families are reminded to discard old lists and to update any records with all medication providers or retail pharmacies. Education Materials Abrasions Abrasions are skin scrapes. Their treatment depends on how large and deep the abrasion is. Home care You may be prescribed an antibiotic cream or ointment to apply to the wound. This helps prevent infection. Follow instructions when using this medicine. General care To care for the abrasion, do the following each day for as long as directed by your healthcare provider. oIf you were given a bandage, change it once a day. If your bandage sticks to the wound, soak it inwarm water until it loosens. oWash the area with soap and warm water. You may do this in a sink or under a tub faucet or shower.Rinse off the soap. Then pat the area dry with a clean towel. oIf antibiotic ointment or cream was prescribed, reapply it to the wound as directed. Cover the wound with a fresh nonstick bandage. If the bandage becomes wet or dirty, change it as soon as possible. oSome antibiotic ointments or cream can cause an allergic reaction or dermatitis. This may cause redness, itching and or hives. If this occurs, stop using the ointment immediately and wash off any remaining ointment. You may need to take some allergy medicine to relieve symptoms. You may use acetaminophen or ibuprofen to control pain unless another pain medicine was prescribed.Talk with your healthcare provider before using these medicines if you have chronic liver or kidneydisease or ever had a stomach ulcer or GI bleeding. Don t use ibuprofen in children younger than six months old. Most skin wounds heal within 10 days. But an infection may occur even with treatment. So it s important to watch the wound for signs of infection as listed below. Follow-up care Follow up with your healthcare provider, or as advised. When to seek medical advice Call your healthcare provider right away if any of these occur: Fever of 100.4 F (38 C) or higher, or as directed by your healthcare provider Increasing pain, redness, swelling, or drainage from the wound Bleeding from the wound that does not stop after a few minutes of steady, firm pressure Decreased ability to move any body part near the wound [id number] [employer] [address] [place] [address], [place] [address]. All rights reserved. This information is not intended as a substitute for professional medical care. Always follow yourhealthcare professional's instructions. Additional Information VACCINATE! IT SAVES LIVES! Members of the community who have not yet received the COVID-19 vaccine and would like to receive it can visit one of [facility] vaccine clinics. There are many vaccine clinic locations within the [facility]. For locations and available times, please visit www.[email or web address].[place].gov/. It is important to note that some COVID mobile vaccine clinics are held outdoors and may be canceled in rainy or stormy conditions. To learn more about pediatric vaccinations (ages 5-11), we invite you to visit the [facility] webpage. https://www.[facility].org/pages/6549-Xspnn-Klequaiqrty-Khquvwqtkd-Risrf-Okj stions.htmlTo learn more about the COVID-19 vaccine, we invite you to visit the CDC website for a list of frequently asked questions. https://www.cdc.gov/coronavirus/2019-ncov/vaccines/faq.html [facility] Patient Portal Access Instructions: Stay connected with your healthcare team and access your personal medical information anytime with the [employer] Patient Portal. If you would like a full copy of your medical records please contact the [facility] Medical Records Department Thursday through Thursday between 8a.m. and 4:30p.m. Please follow the directions below to access the portal: 1.Access the email account you provided upon [facility] to the [facility].2.Look for an invitation email from [facility].3.Open the email and access the invitation link: Accept Invitation to [employer]4.Fill in the required gonzalez to create your account. Sign into www.[employer] with your username and password that you created in the above steps to stay up to date. You can then view a summary of results, a summary of your visits, and the ability to download your summaries to your computer or send the information securely to a physician. Remember that your healthcare information is confidential, so carefully consider who you will allow to register on the [employer] Patient Portal for access to your information. You can also access the [employer] Patient Portal on the [employer]. Simply click on Health Records under [facility] and then click on the [employer] logo. HOW TO SAFELY DISPOSE OF PRESCRIPTION MEDICATIONS Please use one of the following methods to safely dispose of your unused medications. 1.Use a drug disposal kit: the drug disposal pouch allows you to safely discard your old and unuseddrugs. Ask your nurse to give you one when you are discharged.2.Visit a local take-back location: Many local pharmacies and police departments have programs that collect old and unwanted prescriptiondrugs. Call your local pharmacy or go to http://Aula 7.Future Domain/3C8Fg0r to find one close to you.3.Make use of household items: Use cat litter or old coffee grounds to dispose medications if other options arenot available. Mix your drugs with these household products, seal them in an airtight container andthrow it into the garbage. Call [facility]: [phone] to be sure your drugs can be disposed of in this way. Some medicines may require a different approach.4.Never flush your medications down the toilet. IF YOU HAVE BEEN PRESCRIBED AN OPIOIDS FOR PAIN If you have been prescribed an opioid (such as hydrocodone, oxycodone or morphine), it is critical to understand the possible side effects and risks of opioid pain medications. Even when taken as directed, opioids can have several side effects including: Tolerance, meaning you might need to take more of a medication for the same pain relief. Nausea, vomiting and/or constipation. Sleepiness, dizziness, dry mouth, confusion, depression or itching. Physical dependence, meaning you have withdrawal symptoms when a medication is stopped ? this can develop within a few days. KNOW YOUR RESPONSIBILITIES It is important to know exactly how much and how often to take the opioid pain medications you are prescribed. Never take opioids in higher amounts or more often than prescribed. Do not combine opioids with alcohol or other drugs that cause drowsiness, such as benzodiazepines, also known as benzos,including diazepam and alprazolam, muscle relaxants or sleep aids. Never sell or share prescriptionopioids. This is illegal. Store opioids in a secure place and out of reach of others (including children, family, friends and visitors). The last page(s) of this document has been signed and retained as a CHART COPY Signatures Patient Education Materials Abrasions Medication Leaflets My discharge plan and instructions have been reviewed and explained to me and I,OLGA LIDIA TELLO understand my current condition and have read and understand these discharge instructions. I have received a written copy of the plan/instructions. If I have questions, I am aware that I should contact my doctor. Patient/Pharmacy Care Coordinator Signature: Date/Time: Relationship to Patient: Witness Name/Signature: Date/Time: [facility]03-06-2023 Miscellaneous Notes* Telephone Encounter - Lulu Luciano MD - 05/26/2022 2:51 PM EST Noted. Lulu Luciano MD [facility] Miscellaneous Notes* Telephone Encounter - Chayito Vasquez LPN - 05/24/2022 11:08 AM EST Patient has been identified by name and date of : Yes Patient phones for refill(s): Requested Prescriptions Pending Prescriptions Disp Refills pregabalin (LYRICA) 300 mg capsule 180 capsule 1 Sig: Take 1 capsule by mouth twice daily for 180 days. cholecalciferol, Vitamin D3, (VITAMIN D3) 1,250 mcg (50,000 unit) cap capsule 4 capsule 11 Sig: Take 1 capsule by mouth one time a week. Lancets lancets 100 Each 11 Sig: Test blood sugar(s) once daily. Dx: E11.9. New onset type 2 diabetes Insulin: No Omeprazole Magnesium (PRILOSEC OTC) 20 mg tablet 90 tablet 3 Sig: Take 1 tablet by mouth once daily. Date of last office visit in primary care: 04/25/22 Last 2 Encounter Wt Readings: Date: Wt: 04/25/2022 125.2 kg (276 lb) 03/22/2022 126.6 kg (279 lb) Previous labs/tests for medication: Not applicable Please advise. Thank you. Chayito Vasquez LPN documented in this encounterF[facility]02-26-2023 Miscellaneous Notes* Telephone Encounter - Lulu Luciano MD - 05/18/2022 6:55 PM EST The following approved medication requests have been transmitted electronically. Requested Prescriptions Signed Prescriptions Disp Refills pregabalin (LYRICA) 300 mg capsule 180 capsule 1 Sig: Take 1 capsule by mouth twice daily for 180 days. Authorizing Provider: LULU LUCIANO MD * Telephone Encounter - Kanika Malone LPN - 05/17/2022 12:02 PM EST Patient did return call and confirmed that she does want to use [facility] as her pharmacy. Is needing one medication at this time refilled. Patient phones requesting refills as follows: Requested Prescriptions Pending Prescriptions Disp Refills pregabalin (LYRICA) 300 mg capsule 180 capsule 3 Sig: Take 1 capsule by mouth twice daily. Please review and advise. Kanika Malone LPN * Telephone Encounter - Kanika Malone LPN - 05/17/2022 9:10 AM EST Fax received from [facility] ([place] stating that patient is reguesting that all her current medication be sent to this pharmacy. Attempted to contact patient to confirm this is so with no answer and unable to leave message on mobile number and home number rings busy. documented in this [facility]23 Hospital Discharge instructions Patient Education 05/15/2022 04:45:14 URI, Viral, No Abx (Adult) Viral Upper Respiratory Illness (Adult) You have a viral upper respiratory illness (URI), which is another term for the common cold. This illness is contagious during the first few days. It is spread through the air by coughing and sneezing. It may also be spread by direct contact (touching the sick person and then touching your own eyes, nose, or mouth). Frequent handwashing will decrease risk of spread. Most viral illnesses go away within 7 to 10 days with rest and simple home remedies. Sometimes the illness may last for several weeks. Antibiotics will not kill a virus, and they are generally not prescribed for this condition. Home care If symptoms are severe, rest at home for the first 2 to 3 days. When you resume activity, don't letyourself get too tired. Don't smoke. If you need help stopping, talk with your healthcare provider. Avoid being exposed to cigarette smoke (yours or others ). You may use acetaminophen or ibuprofen to control pain and fever, unless another medicine was prescribed. If you have chronic liver or kidney disease, have ever had a stomach ulcer or gastrointestinal bleeding, or are taking blood-thinning medicines, talk with your healthcare provider before using these medicines. Aspirin should never be given to anyone under 18 years of age who is ill with a viral infection or fever. It may cause severe liver or brain damage. Your appetite may be poor, so a light diet is fine. Stay well hydrated by drinking 6 to 8 glasses of fluids per day (water, soft drinks, juices, tea, or soup). Extra fluids will help loosen secretions in the nose and lungs. Gqow-vgi-ehtffck cold medicines will not shorten the length of time you re sick, but they may be helpful for the following symptoms: cough, sore throat, and nasal and sinus congestion. If you take prescription medicines, ask your healthcare provider or pharmacist which dowa-msv-mszpfov medicines are safe to use. (Note: Don't use decongestants if you have high blood pressure.) Follow-up care Follow up with your healthcare provider, or as advised. When to seek medical advice Call your healthcare provider right away if any of these occur: Cough with lots of colored sputum (mucus) Severe headache; face, neck, or ear pain Difficulty swallowing due to throat pain Fever of 100.4 F (38 C) or higher, or as directed by your healthcare provider Call 911 Call 911 if any of these occur: Chest pain, shortness of breath, wheezing, or difficulty breathing Coughing up blood Very severe pain with swallowing, especially if it goes along with a muffled voice [phone] [employer] [address] [place] [address], [place] [address]. All rights reserved. This information is not intended as a substitute for professional medical care. Always follow yourhealthcare professional's instructions. Follow Up Care 05/15/2022 04:25:20 With:LULU LUCIANO MD Address: [address] [facility] [place] [id number]- When:2-4 days [facility] 02-23-2023 Note Discharge Instructions Thank you for allowing [facility] to assist you with your healthcare needs. The following is importantdischarge information regarding your hospital visit. Diagnosis from Today's Visit URI - Upper respiratory infection Cough What to Do Next Instructions from Your Care Team No qualifying data available. Post Acute Orders No qualifying data available. You Need to Schedule the Following Appointments Follow Up with LULU LUCIANO MD When Within 2-4 days [facility] [address] [facility] [place] [id number]- Allergies NKA Medications Please ask your primary doctor or pharmacist before taking any other medication not listed, including over the counter drugs, herbal medications, vitamins and or supplements as they may interact withyour home medications. What How Much When Why Instructions Last Dose New benzonatate (Tessalon Perles 100 mg oral capsule) 1 cap by mouth Three (3) times a day URI - Upper respiratory infection Duration: 7 Days Printed Prescription Unchanged cholecalciferol (D3-50 (50,000 units) oral capsule) 1 cap by mouth Every week Unchanged dulaglutide (Trulicity Pen 1.5 mg/ 0.5 mL subcutaneous solution) 0.5 Milliliter Subcutaneous Every week Unchanged DULoxetine (DULoxetine 60 mg oral delayed release capsule) 2 cap by mouth Once a day Unchanged ferrous sulfate (ferrous sulfate 300 mg oral tablet) 1 tab(s) by mouth Every day Unchanged metFORMIN (metFORMIN 1000 mg oral tablet) 1 tab(s) by mouth Two (2) times a day Unchanged multivitamin (Multivitamin) 1 tab(s) by mouth Every day Unchanged omega-3 polyunsaturated fatty acids ([place]-3 1000 mg oral capsule) 1 cap by mouth Four (4) times a day Unchanged omeprazole 20 Milligram by mouth Once a day Unchanged pregabalin (Lyrica 300 mg oral capsule) 1 cap by mouth Four (4) times a day Please take this list to your next doctor s visit. Bring all medications you take, including over the counter medications, herbals and other supplements with you to your doctor s visit. Patients and families are reminded to discard old lists and to update any records with all medication providers or retail pharmacies. Education Materials Viral Upper Respiratory Illness (Adult) You have a viral upper respiratory illness (URI), which is another term for the common cold. This illness is contagious during the first few days. It is spread through the air by coughing and sneezing. It may also be spread by direct contact (touching the sick person and then touching your own eyes, nose, or mouth). Frequent handwashing will decrease risk of spread. Most viral illnesses go away within 7 to 10 days with rest and simple home remedies. Sometimes the illness may last for several weeks. Antibiotics will not kill a virus, and they are generally not prescribed for this condition. Home care If symptoms are severe, rest at home for the first 2 to 3 days. When you resume activity, don't letyourself get too tired. Don't smoke. If you need help stopping, talk with your healthcare provider. Avoid being exposed to cigarette smoke (yours or others ). You may use acetaminophen or ibuprofen to control pain and fever, unless another medicine was prescribed. If you have chronic liver or kidney disease, have ever had a stomach ulcer or gastrointestinal bleeding, or are taking blood-thinning medicines, talk with your healthcare provider before using these medicines. Aspirin should never be given to anyone under 18 years of age who is ill with a viral infection or fever. It may cause severe liver or brain damage. Your appetite may be poor, so a light diet is fine. Stay well hydrated by drinking 6 to 8 glasses of fluids per day (water, soft drinks, juices, tea, or soup). Extra fluids will help loosen secretions in the nose and lungs. Ylen-fdw-bfrdplo cold medicines will not shorten the length of time you re sick, but they may be helpful for the following symptoms: cough, sore throat, and nasal and sinus congestion. If you take prescription medicines, ask your healthcare provider or pharmacist which zarp-rfn-linosnh medicines are safe to use. (Note: Don't use decongestants if you have high blood pressure.) Follow-up care Follow up with your healthcare provider, or as advised. When to seek medical advice Call your healthcare provider right away if any of these occur: Cough with lots of colored sputum (mucus) Severe headache; face, neck, or ear pain Difficulty swallowing due to throat pain Fever of 100.4 F (38 C) or higher, or as directed by your healthcare provider Call 911 Call 911 if any of these occur: Chest pain, shortness of breath, wheezing, or difficulty breathing Coughing up blood Very severe pain with swallowing, especially if it goes along with a muffled voice [phone] [employer] [address] [place] [address]. All rights reserved. This information is not intended as a substitute for professional medical care. Always follow yourhealthcare professional's instructions. Additional Information VACCINATE! IT SAVES LIVES! Members of the community who have not yet received the COVID-19 vaccine and would like to receive it can visit one of [facility] vaccine clinics. There are many vaccine clinic locations within the [facility]. For locations and available times, please visit www.[email or web address].[place].gov/. It is important to note that some COVID mobile vaccine clinics are held outdoors and may be canceled in rainy or stormy conditions. To learn more about pediatric vaccinations (ages 5-11), we invite you to visit the [facility] webpage. https://www.[facility].org/pages/6349-Fhqod-Dnslpfwrrzv-Tshgybppro-Igonj-Nje stions.htmlTo learn more about the COVID-19 vaccine, we invite you to visit the CDC website for a list of frequently asked questions. https://www.cdc.gov/coronavirus/2019-ncov/vaccines/faq.html [facility] Patient Portal Access Instructions: Stay connected with your healthcare team and access your personal medical information anytime with the [facility] Patient Portal. If you would like a full copy of your medical records please contact the [facility] Medical Records Department Thursday through Thursday between 8a.m. and 4:30p.m. Please follow the directions below to access the portal: 1.Access the email account you provided upon registration to the [facility].2.Look for an invitation email from [facility].3.Open the email and access the invitation link: Accept Invitation to [employer]4.Fill in the required gonzalez to create your account. Sign into www.[employer] with your username and password that you created in the above steps to stay up to date. You can then view a summary of results, a summary of your visits, and the ability to download your summaries to your computer or send the information securely to a physician. Remember that your healthcare information is confidential, so carefully consider who you will allow to register on the [employer] Patient Portal for access to your information. You can also access the [employer] Patient Portal on the [employer]. Simply click on Health Records under [facility] and then click on the [employer] logo. HOW TO SAFELY DISPOSE OF PRESCRIPTION MEDICATIONS Please use one of the following methods to safely dispose of your unused medications. 1.Use a drug disposal kit: the drug disposal pouch allows you to safely discard your old and unuseddrugs. Ask your nurse to give you one when you are discharged.2.Visit a local take-back location: Many local pharmacies and police departments have programs that collect old and unwanted prescriptiondrugs. Call your local pharmacy or go to http://Aula 7.Future Domain/9Q0Fy1e to find one close to you.3.Make use of household items: Use cat litter or old coffee grounds to dispose medications if other options arenot available. Mix your drugs with these household products, seal them in an airtight container andthrow it into the garbage. Call [facility]: [phone] to be sure your drugs can be disposed of in this way. Some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 pregabalin (Lyrica 300 mg oral capsule) 1 cap by mouth Four (4) times a day Please take this list to your next doctor s visit. Bring all medications you take, including over the counter medications, herbals and other supplements with you to your doctor s visit. Patients and families are reminded to discard old lists and to update any records with all medication providers or retail pharmacies. Education Materials Wound Care Taking proper care of your wound will help it heal. Your healthcare provider may show you how to clean and dress the wound. He or she will also explain how to tell if the wound is healing normally. If you are unsure of how to take care of the wound, be sure to clarify what dressing to use and how often you should change the bandages. Here are the basic steps. A wound that's not healing normally may be dark in color or have white streaks. Wash your hands Tips for washing your hands include: Use liquid soap and lather for 2 minutes. Scrub between your fingers and under your nails. Rinse with warm water, keeping your fingers pointing down. Use a paper towel to dry your hands and to turn off the faucet. Remove the used dressing Here are suggestions for removing the dressing: If dressing changes cause you pain, be sure to take your pain medicine as prescribed by your healthcare provider 30 minutes before dressing changes. Set up your supplies. Put on disposable gloves if you re dressing a wound for someone else or your wound is infected. Loosen the tape by pulling gently toward the wound. Gently take off the old dressing. If the dressing is stuck to the wound, moisten it with saline (ifavailable) or clean water. If you have a drain or tube in the wound, be careful not to pull on it. Remove the dressing 1 layer at a time and put it in a plastic bag. Seal the bag and put it in the trash. Remove your gloves. Inspect and dress the wound Check the wound carefully: Each time you change the dressing, check the wound carefully to be sure it s healing normally by making sure your wound appears to be pink and moist, and is free of infection. Wash your hands again. Put on a new pair of gloves. Clean and dress the wound as directed by your healthcare provider or nurse. Don't put anything in the wound that is not prescribed or directed by your healthcare provider. If you have a drain or tube, be careful not to pull on it. Make sure to secure the drain or tube as well. Put all unused supplies in a clean plastic bag. Seal the bag and store it in a clean, dry area between dressing changes. Be sure to wash your hands again. Call your healthcare provider Call your healthcare provider if you see any of the following signs of a problem: Bleeding that soaks the dressing [place] fluid weeping from the wound Increased drainage or drainage that is yellow, yellow-green, or foul-smelling Increased swelling or pain, or redness or swelling in the skin around the wound A change in the color of the wound, or if streaks develop in a direction away from the wound The area between any stitches opens up An increase in the size of the wound A fever of 100.4 F (38 C) or higher, or as directed by your healthcare provider Chills, increased fatigue, or a loss of appetite [id number] [employer] [address] [place] [address]. All rights reserved. This information is not intended as a substitute for professional medical care. Always follow yourhealthcare professional's instructions. Additional Information VACCINATE! IT SAVES LIVES! Members of the community who have not yet received the COVID-19 vaccine and would like to receive it can visit one of [facility] vaccine clinics. There are many vaccine clinic locations within the [facility]. For locations and available times, please visit [email or web address]. It is important to note that some COVID mobile vaccine clinics are held outdoors and may be canceled in rainy orstormy conditions. To learn more about pediatric vaccinations (ages 5-11), we invite you to visit the [facility] webpage. [email or web address]/[email or web address]-Kzgxqfvfwr-[email or web address] stions.htmlTo learn more about the COVID-19 vaccine, we invite you to visit the [facility] website for a list of frequently asked questions. [email or web address]-[email or web address] _[email or web address]-Questions.pdf [facility] Patient Portal Access Instructions: Stay connected with your healthcare team and access your personal medical information anytime with the [employer] Patient Portal. If you would like a full copy of your medical records please contact the [facility] Medical Records Department Thursday through Thursday between 8a.m. and 4:30p.m. Please follow the directions below to access the portal: 1.Access the email account you provided upon registration to the hospital.2.Look for an invitation email from [facility].3.Open the email and access the invitation link: Accept Invitation to [employer]4.Fill in the required gonzalez to create your account. Sign into www.[employer] with your username and password that you created in the above steps to stay up to date. You can then view a summary of results, a summary of your visits, and the ability to download your summaries to your computer or send the information securely to a physician. Remember that your healthcare information is confidential, so carefully consider who you will allow to register on the [employer] Patient Portal for access to your information. You can also access the [employer] Patient Portal on the [employer]. Simply click on Health Records under [employer] and then click on the [employer] logo. HOW TO SAFELY DISPOSE OF PRESCRIPTION MEDICATIONS Please use one of the following methods to safely dispose of your unused medications. 1.Use a drug disposal kit: the drug disposal pouch allows you to safely discard your old and unuseddrugs. Ask your nurse to give you one when you are discharged.2.Visit a local take-back location: Many local pharmacies and police departments have programs that collect old and unwanted prescriptiondrugs. Call your local pharmacy or go to http://Aula 7.Future Domain/4J3Jo5w to find one close to you.3.Make use of household items: Use cat litter or old coffee grounds to dispose medications if other options arenot available. Mix your drugs with these household products, seal them in an airtight container andthrow it into the garbage. Call [facility]: [phone] to be sure your drugs can be disposed of in this way. Some medicines may require a different approach.4.Never flush your medications down the toilet. IF YOU HAVE BEEN PRESCRIBED AN OPIOIDS FOR PAIN If you have been prescribed an opioid (such as hydrocodone, oxycodone or morphine), it is critical to understand the possible side effects and risks of opioid pain medications. Even when taken as directed, opioids can have several side effects including: Tolerance, meaning you might need to take more of a medication for the same pain relief. Nausea, vomiting and/or constipation. Sleepiness, dizziness, dry mouth, confusion, depression or itching. Physical dependence, meaning you have withdrawal symptoms when a medication is stopped ? this can develop within a few days. KNOW YOUR RESPONSIBILITIES It is important to know exactly how much and how often to take the opioid pain medications you are prescribed. Never take opioids in higher amounts or more often than prescribed. Do not combine opioids with alcohol or other drugs that cause drowsiness, such as benzodiazepines, also known as benzos,including diazepam and alprazolam, muscle relaxants or sleep aids. Never sell or share prescriptionopioids. This is illegal. Store opioids in a secure place and out of reach of others (including children, family, friends and visitors). The last page(s) of this document has been signed and retained as a CHART COPY Signatures Patient Education Materials Wound Care Medication Leaflets My discharge plan and instructions have been reviewed and explained to me and I,OLGA LIDIA TELLO understand my current condition and have read and understand these discharge instructions. I have received a written copy of the plan/instructions. If I have questions, I am aware that I should contact my doctor. Patient/Pharmacy Care Coordinator Signature: Date/Time: Relationship to Patient: Witness Name/Signature: Date/Time: [facility]12-14-2022 Miscellaneous Notes* Addendum Note - Star Gonzales MD - 03/05/2022 1:05 PM ESTAddended by: STAR GONZALES on: 03/05/2022 01:05 PM Modules accepted: Orders documented in this [facility]12-14-2022 Miscellaneous Notes* Telephone Encounter - Kanika Malone LPN - 03/05/2022 9:20 AM EST Last office visit: 06/25/21 Next appointment scheduled: 03/13/22 Last labs: 06/05/21 documented in this [facility]12-14-2022 Miscellaneous Notes* Telephone Encounter - Kanika Malone LPN - 03/05/2022 9:13 AM EST Last office visit: 06/25/21 Next appointment scheduled: 03/13/22 Last labs: 06/05/21 Patient phones requesting refills as follows: Requested Prescriptions Pending Prescriptions Disp Refills Blood-Glucose Meter 1 Each 0 Sig: Dispense 1 kit Test blood sugar(s) once daily. Dx: E11.9. Type 2 diabetes Insulin: No DULoxetine (CYMBALTA) 60 mg capsule 60 capsule 5 Sig: Take 2 capsules by mouth once daily. ibuprofen (MOTRIN) 800 mg tablet 80 tablet 2 Sig: Take 1 tablet by mouth every 8 hours as needed for pain. dulaglutide (TRULICITY) 1.5 mg/0.5 mL pen injector 4 Each 3 Sig: Inject 1.5 mg subcutaneously one time a week. Please review and advise. [facility] Dis[facility] Patient Education 03/01/2022 23:51:00 Head Injury (Adult) Head Injury (Adult) You have a head injury. It does not appear serious at this time. But symptoms of a more serious problem, such as a mild brain injury (concussion) or bruising or bleeding in the brain, may appear later. For this reason, you or someone caring for you will need to watch for the symptoms listed below. Once you re home, also be sure to follow any care instructions you re given. Home care Watch for the following symptoms Seek emergency medical care if you have any of these symptoms over the next hours to days: Headache Nausea or vomiting Dizziness Sensitivity to light or noise Unusual sleepiness or grogginess Trouble falling asleep Personality changes Vision changes Memory loss Confusion Trouble walking or clumsiness Loss of consciousness (even for a short time) Inability to be awakened Stiff neck Weakness or numbness in any part of the body Seizures General care If you were prescribed medicines for pain, use them as directed. Note: Don t take other medicines for pain without talking to your provider first. To help reduce swelling and pain, apply a cold source to the injured area for up to 20 minutes at atime. Do this as often as directed. Use a cold pack or bag of ice wrapped in a thin towel. Never apply a cold source directly to the skin. If you have cuts or scrapes as a result of your head injury, care for them as directed. For the next 24 hours (or longer, if instructed): oDon t drink alcohol or use sedatives or other medicines that make you sleepy. oDon t drive or operate machinery. oDon t do anything strenuous, such as heavy lifting or straining. oLimit tasks that require concentration. This includes reading, using a smartphone or computer, watching TV, and playing video games. oDon t return to sports or other activities that could result in another head injury. Follow-up care Follow up with your healthcare provider, or as directed. If imaging tests were done, they will be reviewed by a doctor. You will be told the results and any new findings that may affect your care. When to seek medical advice Call your healthcare provider right away if any of these occur: Pain doesn t get better or worsens New or increased swelling or bruising Fever of 100.4 F (38 C) or higher, or as directed by your provider Increased redness, warmth, drainage, or bleeding from the injured area Fluid drainage or bleeding from the nose or ears Any depression or bony abnormality in the injured area Persistent confusion or lethargy Bruising behind the ears or bruising around the eyes [phone] [employer] [address] [place] [address]. All rights reserved. This information is not intended as a substitute for professional medical care. Always follow yourhealthcare professional's instructions. Follow Up Care 03/01/2022 23:07:57 With:[facility] Address: [address] [place] [id number] Business (1) When:2-4 days With:Go to emergency room if symptoms worsen Address:Unknown When:2-4 days With:LULU LUCIANO MD Address: [address], [place] [id number]- When:2-4 days [facility] 12-11-2022 Note Discharge Instructions Thank you for allowing [facility] to assist you with your healthcare needs. The following is importantdischarge information regarding your hospital visit. Diagnosis from Today's Visit Head injury Head pain What to Do Next Instructions from Your Care Team CTs here negative. Follow-up with your primary care provider. [facility] Return to the emergency department if you experience worsening symptoms or any other care of concern. No qualifying data available. Post Acute Orders No qualifying data available. You Need to Schedule the Following Appointments Follow Up with [facility] When Within 2-4 days Where: [address] [place] [id number] (1) Follow Up with Go to emergency room if symptoms worsen When Within 2-4 days Follow Up with LULU LUCIANO MD When Within 2-4 days Where: [address] [place] [address]- Allergies NKA Medications Please ask your primary doctor or pharmacist before taking any other medication not listed, including over the counter drugs, herbal medications, vitamins and or supplements as they may interact withyour home medications. What How Much When Instructions Last Dose Unchanged aspirin (aspirin 81 mg oral tablet (chewable)) 1 tab(s) by mouth Once a day Unchanged cholecalciferol (D3-50 (50,000 units) oral capsule) 1 cap by mouth Every week Unchanged dulaglutide (Trulicity Pen 1.5 mg/ 0.5 mL subcutaneous solution) 0.5 Milliliter Subcutaneous Every week Unchanged DULoxetine 80 Milligram by mouth Once a day Unchanged ferrous sulfate (ferrous sulfate 300 mg oral tablet) 1 tab(s) by mouth Every day Unchanged ibuprofen (ibuprofen 800 mg oral tablet) 1 tab(s) by mouth Three (3) times a day as needed for as needed for pain Unchanged metFORMIN (metFORMIN 1000 mg oral tablet) 1 tab(s) by mouth Two (2) times a day Unchanged multivitamin (Multivitamin) 1 tab(s) by mouth Every day Unchanged pregabalin (Lyrica 300 mg oral capsule) 1 cap by mouth Four (4) times a day Please take this list to your next doctor s visit. Bring all medications you take, including over the counter medications, herbals and other supplements with you to your doctor s visit. Patients and families are reminded to discard old lists and to update any records with all medication providers or retail pharmacies. Education Materials Head Injury (Adult) You have a head injury. It does not appear serious at this time. But symptoms of a more serious problem, such as a mild brain injury (concussion) or bruising or bleeding in the brain, may appear later. For this reason, you or someone caring for you will need to watch for the symptoms listed below. Once you re home, also be sure to follow any care instructions you re given. Home care Watch for the following symptoms Seek emergency medical care if you have any of these symptoms over the next hours to days: Headache Nausea or vomiting Dizziness Sensitivity to light or noise Unusual sleepiness or grogginess Trouble falling asleep Personality changes Vision changes Memory loss Confusion Trouble walking or clumsiness Loss of consciousness (even for a short time) Inability to be awakened Stiff neck Weakness or numbness in any part of the body Seizures General care If you were prescribed medicines for pain, use them as directed. Note: Don t take other medicines for pain without talking to your provider first. To help reduce swelling and pain, apply a cold source to the injured area for up to 20 minutes at atime. Do this as often as directed. Use a cold pack or bag of ice wrapped in a thin towel. Never apply a cold source directly to the skin. If you have cuts or scrapes as a result of your head injury, care for them as directed. For the next 24 hours (or longer, if instructed): oDon t drink alcohol or use sedatives or other medicines that make you sleepy. oDon t drive or operate machinery. oDon t do anything strenuous, such as heavy lifting or straining. oLimit tasks that require concentration. This includes reading, using a smartphone or computer, watching TV, and playing video games. oDon t return to sports or other activities that could result in another head injury. Follow-up care Follow up with your healthcare provider, or as directed. If imaging tests were done, they will be reviewed by a doctor. You will be told the results and any new findings that may affect your care. When to seek medical advice Call your healthcare provider right away if any of these occur: Pain doesn t get better or worsens New or increased swelling or bruising Fever of 100.4 F (38 C) or higher, or as directed by your provider Increased redness, warmth, drainage, or bleeding from the injured area Fluid drainage or bleeding from the nose or ears Any depression or bony abnormality in the injured area Persistent confusion or lethargy Bruising behind the ears or bruising around the eyes [phone] [employer] [address] [place] [address], [place] [address]. All rights reserved. This information is not intended as a substitute for professional medical care. Always follow yourhealthcare professional's instructions. Additional Information VACCINATE! IT SAVES LIVES! Members of the community who have not yet received the COVID-19 vaccine and would like to receive it can visit one of [facility] vaccine clinics. There are many vaccine clinic locations within the State. For locations and available times, please visit [email or web address]. It is important to note that some COVID mobile vaccine clinics are held outdoors and may be canceled in rainy orstormy conditions. To learn more about pediatric vaccinations (ages 5-11), we invite you to visit the [facility] webpage. [email or web address] [email or web address] learn more about the COVID-19 vaccine, we invite you to visit the [facility] website for a list of frequently asked questions. [email or web address] _[email or web address].pdf [facility] Patient Portal Access Instructions: Stay connected with your healthcare team and access your personal medical information anytime with the [employer] Patient Portal. If you would like a full copy of your medical records please contact the [facility] Medical Records Department Thursday through Thursday between 8a.m. and 4:30p.m. Please follow the directions below to access the portal: 1.Access the email account you provided upon registration to the hospital.2.Look for an invitation email from [facility].3.Open the email and access the invitation link: Accept Invitation to [facility]4.Fill in the required gonzalez to create your account. Sign into www.[employer] with your username and password that you created in the above steps to stay up to date. You can then view a summary of results, a summary of your visits, and the ability to download your summaries to your computer or send the information securely to a physician. Remember that your healthcare information is confidential, so carefully consider who you will allow to register on the [employer] Patient Portal for access to your information. You can also access the [facility] Patient Portal on the [employer]. Simply click on Health Records under [employer] and then click on the [employer] logo. HOW TO SAFELY DISPOSE OF PRESCRIPTION MEDICATIONS Please use one of the following methods to safely dispose of your unused medications. 1.Use a drug disposal kit: the drug disposal pouch allows you to safely discard your old and unuseddrugs. Ask your nurse to give you one when you are discharged.2.Visit a local take-back location: Many local pharmacies and police departments have programs that collect old and unwanted prescriptiondrugs. Call your local pharmacy or go to http://Aula 7.Future Domain/3V2Qi2p to find one close to you.3.Make use of household items: Use cat litter or old coffee grounds to dispose medications if other options arenot available. Mix your drugs with these household products, seal them in an airtight container andthrow it into the garbage. Call [facility]: [phone] to be sure your drugs can be disposed of in this way. Some medicines may require a different approach.4.Never flush your medications down the toilet. IF YOU HAVE BEEN PRESCRIBED AN OPIOIDS FOR PAIN If you have been prescribed an opioid (such as hydrocodone, oxycodone or morphine), it is critical to understand the possible side effects and risks of opioid pain medications. Even when taken as directed, opioids can have several side effects including: Tolerance, meaning you might need to take more of a medication for the same pain relief. Nausea, vomiting and/or constipation. Sleepiness, dizziness, dry mouth, confusion, depression or itching. Physical dependence, meaning you have withdrawal symptoms when a medication is stopped ? this can develop within a few days. KNOW YOUR RESPONSIBILITIES It is important to know exactly how much and how often to take the opioid pain medications you are prescribed. Never take opioids in higher amounts or more often than prescribed. Do not combine opioids with alcohol or other drugs that cause drowsiness, such as benzodiazepines, also known as benzos,including diazepam and alprazolam, muscle relaxants or sleep aids. Never sell or share prescriptionopioids. This is illegal. Store opioids in a secure place and out of reach of others (including children, family, friends and visitors). The last page(s) of this document has been signed and retained as a CHART COPY Signatures Patient Education Materials Head Injury (Adult) Medication Leaflets My discharge plan and instructions have been reviewed and explained to me and I,OLGA LIDIA TELLO understand my current condition and have read and understand these discharge instructions. I have received a written copy of the plan/instructions. If I have questions, I am aware that I should contact my doctor. Patient/Pharmacy Care Coordinator Signature: Date/Time: Relationship to Patient: Witness Name/Signature: Date/Time: [facility]12-11-2022 Note ORIGINAL EXAMINATION: CT OF THE CERVICAL SPINE WITHOUT CONTRAST 03/02/2022 1:05 am TECHNIQUE: CT of the cervical spine was performed without the administration of intravenous contrast. Multiplanar reformatted images are provided for review. Automated exposure control, iterative reconstruction, and/or weight based adjustment of the mA/kV was utilized to reduce the radiation dose to as low as reasonably achievable. COMPARISON: None. HISTORY: ORDERING SYSTEM PROVIDED HISTORY: Reason for Exam: pain FINDINGS: BONES/ALIGNMENT: There is no acute fracture or traumatic malalignment. DEGENERATIVE CHANGES: No significant degenerative changes. SOFT TISSUES: There is no prevertebral soft tissue swelling. IMPRESSION: No acute abnormality of the cervical spine. Interpreted by: Mina Landaverde MD Preliminary Report By: Mina Landaverde MD Electronically signed By Mina Landaverde MD Dictated Date: 03/02/2022 1:18:59 AM Prelim Date: 03/02/2022 1:21:07 AM Sign Date: 03/02/2022 1:21:07 AM Ordering Provider: STELLA MAYORGAVirtua [place]12-11-2022 Note ORIGINAL EXAMINATION: CT OF THE HEAD WITHOUT CONTRAST 03/02/2022 1:02 am TECHNIQUE: CT of the head was performed without the administration of intravenous contrast. Automated exposure control, iterative reconstruction, and/or weight based adjustment of the mA/kV was utilized to reduce the radiation dose to as low as reasonably achievable. COMPARISON: None. HISTORY: ORDERING SYSTEM PROVIDED HISTORY: Reason for Exam: pain, inury FINDINGS: BRAIN/VENTRICLES: There is no acute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 -xeroform and abx ointment applied to the media superficial ulcer -Promogran AG to the larger wound. Change q 3 days -Pressure relief shoe dispensed. -Continue with good glycemic control Follow up in 3-4 weeks or sooner prn Chirstine Tabares DPM documented in this encounterFulton County [facility] Center10-25-2022 History of Present illness Narrative* RT Noemi(R) - 01/14/2022 11:00 AM EDT Radiology Service Progress Note PATIENT NAME: Olga Lidia Tello DATE OF SERVICE: January 14, 2022 TIME: 11:52 AM PATIENT IDENTITY VERIFICATION COMPLETED USING TWO (2) IDENTIFIERS: Name and Date of confirmedby patient verbally. FALL SCREENING: Has the patient had 2 falls in the last year or 1 fall with injury or currently using an Ambulatory Assistive Device (Walker, Cane, Wheelchair, Crutches, etc.)? No PATIENT GENDER DATA: Female. status: : No status: NO. PATIENT RELEVANT IMPLANT DATA REVIEWED: Not Applicable RADIOLOGY DEPARTMENT: General X-ray: Exam(s) Completed: Lower Extremity X- Ray(s): Foot, Right PERIPHERAL IV DATA: Not applicable SIGNED BY: RT Noemi(R) January 14, 2022 11:52 AM documented in this encounterFulton [facility]09-23-2022 NoteHNO ID: [id number] Author: Nithya Orellana, [employer] Service: ? Author Type: Certified Art Therapist Type: Progress Notes Filed: 12/13/2021 11:04 AM Note Text: Radiology Service Progress Note PATIENT NAME: Olga Lidia Tello DATE OF SERVICE: December 13, 2021 TIME: 11:03 AM PATIENT IDENTITY VERIFICATION COMPLETED USING TWO (2) IDENTIFIERS: Name and Date of confirmed by patient verbally. FALL SCREENING: Has the patient had 2 falls in the last year or 1 fall with injury or currently using an Ambulatory Assistive Device (Walker, Cane, Wheelchair, Crutches, etc.)? No PATIENT GENDER DATA: Female. status: : No status: N/A PATIENT RELEVANT IMPLANT DATA REVIEWED: Not Applicable RADIOLOGY DEPARTMENT: Mammography PERIPHERAL IV DATA: Not applicable SIGNED BY: Ludwig Galvano [employer] December 13, 2021 11:03 [facility] History of Present illness Narrative* Ludwig Galvano Michael - 12/13/2021 10:30 AM EDT Radiology Service Progress Note PATIENT NAME: Olga Lidia Tello DATE OF SERVICE: December 13, 2021 TIME: 11:03 AM PATIENT IDENTITY VERIFICATION COMPLETED USING TWO (2) IDENTIFIERS: Name and Date of confirmedby patient verbally. FALL SCREENING: Has the patient had 2 falls in the last year or 1 fall with injury or currently using an Ambulatory Assistive Device (Walker, Cane, Wheelchair, Crutches, etc.)? No PATIENT GENDER DATA: Female. status: : No status: N/A PATIENT RELEVANT IMPLANT DATA REVIEWED: Not Applicable RADIOLOGY DEPARTMENT: Mammography PERIPHERAL IV DATA: Not applicable SIGNED BY: Ludwig Galvano Michael December 13, 2021 11:03 AM documented in this encounterFulton [facility] Center09-16-2022 Miscellaneous Notes* Telephone Encounter - Rolando Ayala PA-C - 12/06/2021 4:38 PM EDT Must have appt DESTIN 2019 CAMELIA Ba, RAMAN JEWELL documented in this encounterFulton County [facility] Center08-10-2022 Miscellaneous Notes* Telephone Encounter - Rolando Ayala PA-C - 10/30/2021 2:51 PM EDT Duplicate documented in this [facility]08-10-2022 Miscellaneous Notes* Telephone Encounter - Rolando Ayala PA-C - 10/30/2021 2:49 PM EDT Overdue for annual visit. Rolando Ayala, [place], [place], RAMAN documented in this [facility]08-04-2022 History of Present illness Narrative* Larry Ahn MD - 10/24/2021 4:52 PM EDT 51F here to get plugged in a main campus after moving from [place] in order to get refills for Lyrica. On Lyrica for severe neuropathy, hand and stocking distribution. Attributed to DM2 well controlled on metformin O: BP 115/76 Pulse 90 Wt 115.1 kg (253 lb 11.2 oz) LMP 09/04/2021 BMI 35.38 kg/m Gen: A&A NAD. Tall, large hands and feet FHx notable for gigantism ASSESSMENT/PLAN: 1. Neuropathy - ICD9: 355.9, ICD10: G62.9 - Refill Lyrica - Check for Acromegally - PREGABALIN 300 MG CAPSULE - INSULIN LIK GR FAC I Larry Ahn MD documented in this [facility]08-04-2022 Nurse Note* Helen Resendiz LPN - 10/24/2021 4:35 PM EDT Olga Lidia Tello is a 51 year old female here today for visit in Internal Medicine Patient has been identified by name and date of for verification purposes. Allergies have been reviewed and verified. They include the following: Patient has no known allergies. Health Maintenance has been reviewed and updated. COVID-19 VACCINE(1) HIV SCREENING HEPATITIS B(1 of 3 - Risk 3-dose series) COLORECTAL CANCER SCREENING PNEUMOCOCCAL(2 - PCV) MAMMOGRAM URINE ALBUMIN:CREATININE RATIO Pharmacy benefits have been run and correct pharmacy has been verified. Yes Medication - prescribed and OTC reviewed and updated: Yes Refills have been pended for physician review and filing. No Patient Declined refills to be pended. Has the patient completed any recent labs / tests ordered by G10: No Is the patient active on MyChart Yes What is the patients preferred method of communication: Talibt Helen Resendiz LPN documented in this encounterFulton County [facility] Center07-29-2022 Miscellaneous Notes* Telephone Encounter - Lulu Luciano MD - 10/18/2021 6:01 PM EDT The following approved medication requests have been transmitted electronically. Signed Prescriptions Disp Refills lactobacillus combination no.4 (PROBIOTIC) 3 billion cell cap 30 capsule 5 Sig: Take 1 capsule by mouth once daily. VALENTINE: No Authorizing Provider: LULU LUCIANO ibuprofen (MOTRIN) 800 mg tablet 80 tablet 2 Sig: Take 1 tablet by mouth every 8 hours as needed for pain. VALENTINE: No Authorizing Provider: LULU LUCIANO dulaglutide (TRULICITY) 1.5 mg/0.5 mL pen injector 4 Each 3 Sig: Inject 1.5 mg subcutaneously one time a week. VALENTINE: No Authorizing Provider: LULU LUCIANO pregabalin (LYRICA) 300 mg capsule 60 capsule 3 Sig: Take 1 capsule by mouth twice daily for 120 days. POOL Class: C-V VALENTINE: No Authorizing Provider: LULU LUCIANO MD Gave enough refills of Lyrica to last till appointment with new PCP * Telephone Encounter - Kelly Sahni LPN - 10/17/2021 4:14 PM EDT Patient has been identified by name and date of : Yes Patient phones for refill(s): Pending Prescriptions Disp Refills PROBIOTIC 3 BILLION CELL CAPSULE 30 capsule 5 Sig: Take 1 capsule by mouth once daily. VALENTINE: No IBUPROFEN 800 MG TABLET 80 tablet 2 Sig: Take 1 tablet by mouth every 8 hours as needed for pain. VALENTINE: No TRULICITY 1.5 MG/0.5 ML SUBCUTANEOUS PEN INJECTOR 4 Each 3 Sig: Inject 1.5 mg subcutaneously one time a week. VALENTINE: No PREGABALIN 300 MG CAPSULE 60 capsule 1 Sig: Take 1 capsule by mouth twice daily for 60 days. POOL Class: C-V VALENTINE: No Date of last office visit in primary care: 06/25/2021 Appt to establish care w/Dr. Gonzales: 01/23/2022 Last 2 Encounter Wt Readings: Date: Wt: 06/25/2021 122.9 kg (271 lb) 05/14/2021 124.7 kg (275 lb) Previous labs/tests for medication: Diabetes: Hemoglobin A1C (%) Date Value 06/05/2021 6.6 11/15/2020 7.7 02/15/2020 6.2 10/07/2019 7.0 Please advise. Thank you. Kelly Sahni LPN documented in this [facility]07-28-2022 Miscellaneous Notes* Telephone Encounter - Kelly Sahni LPN - 10/17/2021 4:16 PM EDT Duplicate request. Kelly Sahni LPN documented in this [facility]07-28-2022 Miscellaneous Notes* Telephone Encounter - Kelly Sahni LPN - 10/17/2021 4:16 PM EDT Duplicate request. Kelly Sahni LPN documented in this [facility]07-28-2022 Miscellaneous Notes* Telephone Encounter - Kelly Sahni LPN - 10/17/2021 4:06 PM EDT Patient has been identified by name and date of : Yes Patient phones for refill(s): Pending Prescriptions Disp Refills FERROUS GLUCONATE 324 MG (38 MG IRON) TABLET 60 tablet 5 Sig: Take 1 tablet by mouth twice daily with meals. VALENTINE: No Date of last office visit in primary care: 06/25/2021 Appt to establish care w/Dr. Gonzales/[place]: 01/23/2022 Last 2 Encounter Wt Readings: Date: Wt: 06/25/2021 122.9 kg (271 lb) 05/14/2021 124.7 kg (275 lb) Previous labs/tests for medication: Not applicable Please advise. Thank you. Kelly Sahni LPN documented in this encounterFulton [facility] Center07-20-2022 Miscellaneous Notes* Telephone Encounter - Daiana Ferreira RN - 10/09/2021 12:01 PM EDT Attempted to call patient for pre visit screen for virtual appointment on 10/09/[address] Gonzales VM left. Daiana Ferreira RN October 09, 2021 12:03 PM documented in this encounterFulton County Health Center05-25-2022 Miscellaneous Notes* Telephone Encounter - Maine Fernando RN - 08/14/2021 11:09 AM EDT Pt was scheduled with Dr Luciano on October 04, 2021 at 340 pm for medication check. documented in this encounterFulton County Health Center05-19-2022 Miscellaneous Notes* Telephone Encounter - Ele Jesus LPN - 08/08/2021 1:10 PM EDT My chart message to pt. * Telephone Encounter - Lulu Luciano MD - 08/07/2021 7:50 PM EDT The following approved medication requests have been transmitted electronically. Signed Prescriptions Disp Refills pregabalin (LYRICA) 300 mg capsule 60 capsule 1 Sig: Take 1 capsule by mouth twice daily for 60 days. POOL Class: C-V VALENTINE: No Authorizing Provider: LULU LUCIANO MD Schedule appointment within next 2 months. * Telephone Encounter - Melisa Muniz LPN - 08/06/2021 1:07 PM EDT Patient calling to check status of request. Went over notes below from Dr Luciano. Patient is in [place] right now coming back to [place] Thursday. She has been out of Lyrica since early July. Patient uses [facility] for her pharmacy, she takes 300 mg twice daily. Aware that with Lyrica being controlled medication can not get rx filled out of state. Patient said she is willing to see PCP every6 months. * Telephone Encounter - Kathi Grullon LPN - 08/01/2021 12:40 PM EDT No answer. Left message for patient to call office and ask to speak to a nurse regarding refilling prescription for Lyrica * Telephone Encounter - Lulu Luciano MD - 07/31/2021 6:59 PM EDT Will need to be seen every 6 months and sign a controlled substance agreement, but I can continue to prescribe the Lyrica. When does she need the next prescription? Can give refills when needed. She has February appointment. Could do a Virtual Visit or F2F in August. * Telephone Encounter - Hoda English RN - 07/31/2021 2:19 PM EDT Patient calling to ask if PCP would be willing to prescribe Lyrica because she is no longer seeing Dr. Schmidt, Neurologist and does not have a future Neurology appointment scheduled. Please review and advise. Hoda English RN documented in this encounterFulton County [facility] Center04-22-2022 Miscellaneous Notes* Telephone Encounter - Gladys Garcia - 07/12/2021 10:31 AM EDT [employer] message was sent to pt to notify of need for follow up before any more refills will be given from this office. Gladys Garcia * Telephone Encounter - Rolando Ayala PA-C - 07/12/2021 9:14 AM EDT No further Rx renewals, last visit 2018, this should not even be sent to me if its that long its automatic follow up or nothing. Rolando Ayala MPAS, [place], RAMAN documented in this [facility]04-05-2022 Instructions* Patient Instructions* Lulu Luciano MD - 06/25/2021 6:48 PM EDT Check sugars daily. Can check other times of day than just fasting. documented in this encounterFulton County Health Center04-05-2022 History of Present illness Narrative* Lulu Luciano MD - 06/25/2021 6:20 PM EDT This note was created using DoubleUpriter. Subjective Olga Lidia Tello is a 50 year old female. Patient presents with: Follow Up SUBJECTIVE: Olga Lidia Tello is a 50 year old year old lady here today for follow up appointment for review of medical conditions. LUQ pain ongoing. Colonoscopy did not find anything. Gets severe cramp sometimes and roberts sto almost hold breath to get through the pain. Sometimes shakes really bad. ?med Drops things. More problems with legs and feet. [place], fell when was standing and went to move forward but feet seemed stuck and upper half moved forward. Feels like ankles could crack and break. Had surgery in right foot. Larger on the lateral part of right heel. Told that eventually would go down but been over a year now. Dr. Cosme. Right foot is white but left is red. Was told to avoid too much walking. Told to do bike and try aqua aerobics. Hands also bother her. Not sure if CTS. Decreased Lyrica from 300 mg TID to twice daily. Tremor no better. Still follows with [facility] where Dr. Schmidt was. Wants to try to keep tapering. No clinical signs of problems from the aneurysm that had been seen on head CTA 2011. Noted perimenopausal. Was spotting for months and now irregular periods and cramping. Pimple on chin now. Grabbing things to eat along the way today. Coffees. Blueberry muffin. Was having more protein to lose weight but cost... Knows needs to work on portions. 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 Talha gannon MRA in 2012 Benign paroxysmal positional vertigo not an issue since 2006 Cataract Chronic cholecystitis 2007 Diabetes ([facility]) Dizziness and giddiness Elevated AST (SGOT) 10/16/2011 Esophageal reflux Excessive or frequent menstruation 06/19/2008 Family history of cardiac disorder in mother 12/23/2013 Fibromyalgia Hallux valgus (acquired) 01/12/2006 Hx-TIA (transient ischemic attack) January 2012 [place] Mixed hyperlipidemia 03/19/2006 Resolved Morbid obesity with BMI of 40.0-44.9, adult ([facility]) 09/12/2014 Myalgia and myositis, unspecified Neuropathy Dr. Schmidt managing WILTON (obstructive sleep apnea) non compliant with CPAP Other enthesopathy of ankle and tarsus 01/12/2006 Other osteoporosis Restless leg syndrome 08/16/2015 Dr. Schmidt managing Retinal detachment 08/17/2015 Current Outpatient Medications Medication Sig cholecalciferol, Vitamin D3, (VITAMIN D3) 1,250 mcg (50,000 unit) cap capsule Take 1 capsule by mouth one time a week. omeprazole (PRILOSEC) 40 mg capsule Take 1 capsule by mouth once daily. Ferrous Gluconate (FERGON) 324 mg (38 mg iron) tablet Take 1 tablet by mouth twice daily with meals. dulaglutide (TRULICITY) 1.5 mg/0.5 mL pen injector Inject 1.5 mg subcutaneously one time a week. ibuprofen (MOTRIN) 800 mg tablet Take 1 tablet by mouth every 8 hours as needed for pain. lactobacillus combination no.4 (PROBIOTIC) 3 billion cell cap Take 1 capsule by mouth once daily. Blood-Glucose Meter Dispense 1 kit Test blood sugar(s) once daily. Dx: E11.9. Type 2 diabetes Insulin: No metFORMIN (GLUCOPHAGE) 500 mg tablet Take 2 tablets by mouth twice daily with meals. tolterodine (DETROL) 2 mg tablet take 1 tablet by mouth twice a day DULoxetine (CYMBALTA) 60 mg capsule Take 2 capsules by mouth once daily. Prescribed by Dr. Schmidt Lancing Device (LANCING DEVICE WITH LANCETS[place] [facility] [place] blood sugar once daily Lancets lancets Test blood sugar(s) once daily. Dx: E11.9. New onset type 2 diabetes Insulin: No pregabalin (LYRICA) 300 mg capsule Take 1 capsule by mouth three times daily. Prescribed by Dr. Schmidt multivitamin tablet Take 1 tablet by mouth once daily. acetaminophen (TYLENOL) 325 mg tablet Take 2 tablets by mouth once daily. for pain. peg 3350-Electrolytes (GOLYTELY) 236-22.74-6.74 -5.86 gram suspension Refer to printed prep instructions from your provider. (Patient not taking: Reported on 06/25/2021 ) magnesium oxide (MAGOX) 400 mg (241.3 mg magnesium) tablet Take 1 tablet by mouth once daily. blood sugar diagnostic (BLOOD GLUCOSE TEST) test strip Test blood sugar(s) once daily and as needed. Dx: E11.9. Type 2 diabetes Insulin: No aspirin 325 mg tablet Take 325 mg by mouth once daily. (Patient not taking: Reported on 06/25/2021 ) No current facility-administered medications for this visit. Review of Systems Objective BP 126/84 Pulse 84 Wt 122.9 kg (271 lb) LMP 05/07/2021 SpO2 96% BMI 37.80 kg/m Last 5 Encounter Wt Readings: Date: Wt: 06/25/2021 122.9 kg (271 lb) 05/14/2021 124.7 kg (275 lb) 03/29/2021 128.5 kg (283 lb 6.4 oz) 03/21/2021 125.6 kg (277 lb) 01/29/2021 132.7 kg (292 lb 9.6 oz) No waist measurement recorded Estimated body mass index is 37.8 kg/m as calculated from the following: Height as of 05/14/21: 180.3 cm (5' 11). Weight as of this encounter: 122.9 kg (271 lb). Last 5 Encounter BP Readings: Date: BP: 06/25/2021 126/84 05/14/2021 108/70 05/14/2021 109/71 03/29/2021 118/82 03/21/2021 122/74 Physical Exam Constitutional: Appearance: Normal appearance. HENT: Head: Normocephalic. Eyes: Conjunctiva/sclera: Conjunctivae normal. Cardiovascular: Rate and Rhythm: Normal rate and regular rhythm. Heart sounds: Normal heart sounds. Pulmonary: Effort: Pulmonary effort is normal. Breath sounds: Normal breath sounds. Skin: General: Skin is warm and dry. Neurological: General: No focal deficit present. Mental Status: She is alert and oriented to person, place, and time. Psychiatric: Mood and Affect: Mood normal. Behavior: Behavior normal. Thought Content: Thought content normal. Judgment: Judgment normal. 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 Component Latest Ref Rng & Units 11/15/2020 06/05/2021 Protein, Total 6.3 - 8.0 g/dL 6.6 6.6 Albumin 3.9 - 4.9 g/dL 3.8 (L) 3.6 (L) Calcium 8.5 - 10.2 mg/dL 9.4 9.7 Bilirubin, Total 0.2 - 1.3 mg/dL 0.4 0.3 Alkaline Phosphatase 34 - 123 U/L 81 77 AST 13 - 35 U/L 34 30 Glucose 74 - 99 mg/dL 93 84 BUN 7 - 21 mg/dL 11 15 Creatinine 0.58 - 0.96 mg/dL 0.78 0.67 Sodium 136 - 144 mmol/L 141 140 Potassium 3.7 - 5.1 mmol/L 3.8 4.2 Chloride 97 - 105 mmol/L 103 105 CO2 22 - 30 mmol/L 25 24 Anion Gap 9 - 18 mmol/L 13 11 ALT 7 - 38 U/L 13 14 eGFR- >60 eGFR-All Other Races . >60 eGFR >=60 mL/min/1.73m 106 WBC 3.70 - 11.00 k/uL 9.15 10.06 RBC 3.90 - 5.20 m/uL 4.81 4.97 Hemoglobin 11.5 - 15.5 g/dL 14.4 14.7 Hematocrit 36.0 - 46.0 % 46.2 (H) 46.6 (H) MCV 80.0 - 100.0 fL 96.0 93.8 MCH 26.0 - 34.0 pg 29.9 29.6 MCHC 30.5 - 36.0 g/dL 31.2 31.5 RDW-CV 11.5 - 15.0 % 14.2 13.6 Platelet Count 150 - 400 k/uL 305 379 MPV 9.0 - 12.7 fL 9.8 9.1 Absolute nRBC <0.01 k/uL <0.01 <0.01 Cholesterol, Total <200 mg/dL 198 220 (H) Triglyceride <150 mg/dL 157 (H) 287 (H) HDL Cholesterol >39 mg/dL 36 (L) 33 (L) LDL Cholesterol <100 mg/dL 131 (H) 130 (H) Non HDL Cholesterol <130 mg/dL 162 (H) 187 (H) Fasting Time hrs 12 13 VLDL Cholesterol <30 mg/dL 31 (H) 57 (H) TC:HDL Ratio <5.10 5.50 (H) 6.67 (H) LDL:HDL Ratio <2.54 3.64 (H) 3.94 (H) Creatinine, Ur Random (UCRR) 20 - 300 mg/dL 269.2 Albumin, Urine Random mg/L 16.6 Albumin/Creat Ratio <30 mg/g 6 Hemoglobin A1C 4.3 - 5.6 % 7.7 (H) 6.6 (H) Estimated Average Glucose mg/dL 174 143 Magnesium 1.7 - 2.3 mg/dL 1.4 (L) 1.6 (L) Vitamin D 25 Hydroxy 31.0 - 80.0 ng/mL 55.4 30.4 (L) Assessment and Plan ASSESSMENT/PLAN: 1. Type 2 diabetes mellitus without complication, without long-term current use of insulin (HCC) - ICD9: 250.00, ICD10: E11.9 (primary diagnosis) Controlled. - Continue current medications - Encouraged regular aerobic exercise and weight loss - HGB A1C - COMP METABOLIC PANEL - ALBUMIN/CREAT RATIO RND UR 2. Chronic right shoulder pain - ICD9: 719.41, 338.29, ICD10: M25.511, G89.29 Continue present management. Further evaluation and treatment as indicated. - IBUPROFEN 800 MG TABLET 3. Neuropathy - ICD9: 355.9, ICD10: G62.9 Continue to taper Lyrica because of issues with tremor. Further evaluation and treatment as indicated. - PREGABALIN 300 MG CAPSULE 4. Vitamin D deficiency - ICD9: 268.9, ICD10: E55.9 Level low again. Adjust supplement dose as needed. .frut - VITAMIN D 25 HYDROXY 5. Hypomagnesemia - ICD9: 275.2, ICD10: E83.42 Improved; almost within normal limits Continue to replace, Further evaluation and treatment as indicated. - MAGNESIUM BLD 6. Mixed hyperlipidemia - ICD9: 272.2, ICD10: E78.2 - suboptimal control - Encouraged following a low fat, low cholesterol diet. - Discussed the benefits of regular aerobic exercise and weight loss. - Encouraged following a low carbohydrate, healthy oil intake diet. Discuss statin again at next appointment - LIPID PANEL BASIC 7. Obesity (BMI 30-39.9) - ICD9: 278.00, ICD10: E66.9 Weight decreasing - Behavioral intervention--Encouraged to continue efforts at healthier diet and staying as active as able to help with continued weight loss. Trulicity appears to be helping. Further evaluation and treatment as indicated. 8. Encounter for long-term current use of medication - ICD9: V58.69, ICD10: Z79.899 - COMP METABOLIC PANEL - CBC Noted no clinical signs of problems from aneurysm. Will discuss with patient at next follow up appointment, Lulu Luciano MD Medical Decision Making: Problems: Moderate: 2+ stable chronic illnesses Data: Unique test(s) ordered: 3+ Risk: Moderate: Drug management Medical Decision Making Level: 4 - Moderate documented in this encounterFulton County [facility] Center11-19-2021 Hospital Discharge instructions Patient Education 02/08/2021 14:04:59 Hand Washing, [id number] Hand Washing Germs such as bacteria, viruses, and parasites are found everywhere. They can be in the air and water. They can also be on surfaces like food, door handles, and your skin. Every day, your hands touchgerms. Many of these germs can make you and your family sick. Washing your hands is one of the bestways to lower your risk of getting and sharing germs. When should I wash my hands? You should wash your hands whenever you think they are dirty. You should also wash your hands: Before: ?Visiting a baby or anyone with a weakened disease-fighting system (immunesystem). ?Putting in and taking out contact lenses. After: ?Using the bathroom or helping someone else use the bathroom. ?Working or playing outside. ?Touching or taking out the garbage. ?Touching anything dirty around your home. ?Sneezing, coughing, or blowing your nose. ?Using a phone, including your mobile phone. ?Touching an animal, animal food, animal poop, or its toys or leash. ?Touching money. ?Using household manager transition or poisonous chemicals. ?Handling dirty clothes, bedding, or rags. ?Using public transportation. ?Going shopping, especially if you use a shopping cart or basket. ?Shaking hands. ?Handling livestock, such as cows or sheep. Before and after: ?Preparing food. ?Eating. ?Visiting or taking care of someone who is sick. This includes touching used tissues, toys, and clothes. ?Changing a bandage (dressing). ?Taking care of an injury or wound. ?Giving or taking medicine. ?Preparing a bottle for a baby. ?Feeding a baby or young child. ?Changing a diaper. What is the right way to wash my hands? 1.Wet your hands with clean, running water. Turn off the water or move your hands out of the running water. 2.Apply liquid soap or bar soap to your hands. 3.Rub your hands together quickly to create lather. 4.Keep rubbing your hands together for at least 20 seconds. Thoroughly scrub all parts of your hands. This includes scrubbing under your fingernails and between your fingers. 5.Rinse your hands with clean, running water. Do this until all the soap is gone. 6.Dry your hands using an air dryer or a clean paper or cloth towel, or let your hands air-dry. Do not use your clothing or a dirty towel to dry your hands. If you are in a public restroom, use your towel: To turn off the water faucet. To open the bathroom door. How can I clean my hands if I do not have soap and water? If soap and clean water are not available, use a hand-washing wipe, spray, or gel (hand installer apprentice).Use one that contains at least 60% alcohol. If you are handling food, gels are not recommended as areplacement for hand washing with soap and water. To use these products, follow the directions on the product, and: Apply enough product to cover your hands. Make sure you wipe, rub, or spray the product so that it reaches every part of your hands and wrists. Include the backs of your hands, between your fingers, and under your fingernails. Rub the product onto your hands until it dries. Summary Every day, your hands touch germs. Many of these germs can make you and your family sick. Washing your hands is one of the best ways to lower your risk of getting and sharing germs. If soap and clean water are not available, use a hand-washing wipe, spray, or gel. This information is not intended to replace advice given to you by your health care provider. Make sure you discuss any questions you have with your health care provider. Document Released: 02/19/2009 Document Revised: 12/16/2017 Document Reviewed: 12/16/2017 [employer] Patient Education 2020 [employer]. 02/08/2021 14:04:50 Nausea and Vomiting, Adult, Aojf-jh-Pjlg Nausea and Vomiting, Adult Nausea is feeling sick to your stomach or feeling that you are about to throw up (vomit). Vomiting is when food in your stomach is thrown up and out of the mouth. Throwing up can make you feel weak. It can also make you lose too much water in your body (get dehydrated). If you lose too much water in your body, you may: Feel tired. Feel thirsty. Have a dry mouth. Have cracked lips. Go pee (urinate) less often. Older adults and people with other diseases or a weak body defense system (immune system) are at higher risk for losing too much water in the body. If you feel sick to your stomach and you throw up, it is important to follow instructions from your doctor about how to take care of yourself. Follow these instructions at home: Watch your symptoms for any changes. Tell your doctor about them. Follow these instructions to carefor yourself at home. Eating and drinking Take an ORS (oral rehydration solution). This is a drink that is sold at pharmacies and stores. Drink clear fluids in small amounts as you are able, such as: ?Water. ?Ice chips. ?Fruit juice that has water added (diluted fruit juice). ?Low-calorie sports drinks. Eat bland, awxm-fo-vegvaq foods in small amounts as you are able, such as: ?Bananas. ?Applesauce. ?Rice. ?Low-fat (lean) meats. ?[place]. ?Crackers. Avoid drinking fluids that have a lot of sugar or caffeine in them. This includes energy drinks, sports drinks, and soda. Avoid alcohol. Avoid spicy or fatty foods. General instructions Take vhwq-cgo-szbmwps and prescription medicines only as told by your doctor. Drink enough fluid to keep your pee (urine) pale yellow. Wash your hands often with soap and water. If you cannot use soap and water, use hand installer apprentice. Make sure that all people in your home wash their hands well and often. Rest at home while you get better. Watch your condition for any changes. Take slow and deep breaths when you feel sick to your stomach. Keep all follow-up visits as told by your doctor. This is important. Contact a doctor if: Your symptoms get worse. You have new symptoms. You have a fever. You cannot drink fluids without throwing up. You feel sick to your stomach for more than 2 days. You feel light-headed or dizzy. You have a headache. You have muscle cramps. You have a rash. You have pain while peeing. Get help right away if: You have pain in your chest, neck, arm, or jaw. You feel very weak or you pass out (faint). You throw up again and again. You have throw up that is bright red or looks like black coffee grounds. You have bloody or black poop (stools) or poop that looks like tar. You have a very bad headache, a stiff neck, or both. You have very bad pain, cramping, or bloating in your belly (abdomen). You have trouble breathing. You are breathing very quickly. Your heart is beating very quickly. Your skin feels cold and clammy. You feel confused. You have signs of losing too much water in your body, such as: ?Dark pee, very little pee, or no pee. ?Cracked lips. ?Dry mouth. ?Sunken eyes. ?Sleepiness. ?Weakness. These symptoms may be an emergency. Do not wait to see if the symptoms will go away. Get medical help right away. Call your local emergency services (911 in the [place] Do not drive yourself to the hospital. Summary Nausea is feeling sick to your stomach or feeling that you are about to throw up (vomit). Vomiting is when food in your stomach is thrown up and out of the mouth. Follow instructions from your doctor about eating and drinking to keep from losing too much water in your body. Take nuom-kde-qzdrpgs and prescription medicines only as told by your doctor. Contact your doctor if your symptoms get worse or you have new symptoms. Keep all follow-up visits as told by your doctor. This is important. This information is not intended to replace advice given to you by your health care provider. Make sure you discuss any questions you have with your health care provider. Document Released: 08/25/2008 Document Revised: 07/01/2019 Document Reviewed: 08/17/2018 [employer] Patient Education 2020 [employer]. 02/08/2021 14:04:44 Deep Vein Thrombosis Deep Vein Thrombosis Deep vein thrombosis (DVT) is a condition in which a blood clot forms in a deep vein, such as a lower leg, thigh, or arm vein. A clot is blood that has thickened into a gel or solid. This condition is dangerous. It can lead to serious and even life-threatening complications if the clot travels to the lungs and causes a blockage (pulmonary embolism). It can also damage veins in the leg. This can result in leg pain, swelling, discoloration, and sores (post-thrombotic syndrome). What are the causes? This condition may be caused by: A slowdown of blood flow. Damage to a vein. A condition that causes blood to clot more easily, such as an inherited clotting disorder. What increases the risk? The following factors may make you more likely to develop this condition: Being overweight. Being older, especially over age 60. Sitting or lying down for more than four hours. Being in the hospital. Lack of physical activity (sedentary lifestyle). , being in childbirth, or having recently given . Taking medicines that contain estrogen, such as medicines to prevent . Smoking. A history of any of the following: ?Blood clots or a blood clotting disease. ?Peripheral vascular disease. ?Inflammatory bowel disease. ?Cancer. ?Heart disease. ?Genetic conditions that affect how your blood clots, such as Factor V Leiden mutation. ?Neurological diseases that affect your legs (leg paresis). ?A recent injury, such as a car accident. ?Major or lengthy surgery. ?A central line placed inside a large vein. What are the signs or symptoms? Symptoms of this condition include: Swelling, pain, or tenderness in an arm or leg. Warmth, redness, or discoloration in an arm or leg. If the clot is in your leg, symptoms may be more noticeable or worse when you stand or walk. Some people may not develop any symptoms. How is this diagnosed? This condition is diagnosed with: A medical history and physical exam. Tests, such as: ?Blood tests. These are done to check how well your blood clots. ?Ultrasound. This is done to check for clots. ?Venogram. For this test, contrast dye is injected into a vein and X-rays are taken to check for any clots. How is this treated? Treatment for this condition depends on: The cause of your DVT. Your risk for bleeding or developing more clots. Any other medical conditions that you have. Treatment may include: Taking a blood thinner (anticoagulant). This type of medicine prevents clots from forming. It may be taken by mouth, injected under the skin, or injected through an IV (catheter). Injecting clot-dissolving medicines into the affected vein (catheter-directed thrombolysis). Having surgery. Surgery may be done to: ?Remove the clot. ?Place a filter in a large vein to catch blood clots before they reach the lungs. Some treatments may be continued for up to six months. Follow these instructions at home: If you are taking blood thinners: Take the medicine exactly as told by your health care provider. Some blood thinners need to be taken at the same time every day. Do not skip a dose. Talk with your health care provider before you take any medicines that contain aspirin or NSAIDs. These medicines increase your risk for dangerous bleeding. Ask your health care provider about foods and drugs that could change the way the medicine works (may interact). Avoid those things if your health care provider tells you to do so. Blood thinners can cause easy bruising and may make it difficult to stop bleeding. Because of this: ?Be very careful when using knives, scissors, or other sharp objects. ?Use an electric razor instead of a blade. ?Avoid activities that could cause injury or bruising, and follow instructions about how to preventfalls. Wear a medical alert bracelet or carry a card that lists what medicines you take. General instructions Take ylhn-ang-cyclmwi and prescription medicines only as told by your health care provider. Return to your normal activities as told by your health care provider. Ask your health care provider what activities are safe for you. Wear compression stockings if recommended by your health care provider. Keep all follow-up visits as told by your health care provider. This is important. How is this prevented? To lower your risk of developing this condition again: For 30 or more minutes every day, do an activity that: ?Involves moving your arms and legs. ?Increases your heart rate. When traveling for longer than four hours: ?Exercise your arms and legs every hour. ?Drink plenty of water. ?Avoid drinking alcohol. Avoid sitting or lying for a long time without moving your legs. If you have surgery or you are hospitalized, ask about ways to prevent blood clots. These may include taking frequent walks or using anticoagulants. Stay at a healthy weight. If you are a woman who is older than age 35, avoid unnecessary use of medicines that contain estrogen, such as some control pills. Do not use any products that contain nicotine or tobacco, such as cigarettes and e-cigarettes. Thisis especially important if you take estrogen medicines. If you need help quitting, ask your health care provider. Contact a health care provider if: You miss a dose of your blood thinner. Your menstrual period is heavier than usual. You have unusual bruising. Get help right away if: You have: ?New or increased pain, swelling, or redness in an arm or leg. ?Numbness or tingling in an arm or leg. ?Shortness of breath. ?Chest pain. ?A rapid or irregular heartbeat. ?A severe headache or confusion. ?A cut that will not stop bleeding. There is blood in your vomit, stool, or urine. You have a serious fall or accident, or you hit your head. You feel light-headed or dizzy. You cough up blood. These symptoms may represent a serious problem that is an emergency. Do not wait to see if the symptoms will go away. Get medical help right away. Call your local emergency services (911 in the [place] Do not drive yourself to the hospital. Summary Deep vein thrombosis (DVT) is a condition in which a blood clot forms in a deep vein, such as a lower leg, thigh, or arm vein. Symptoms can include swelling, warmth, pain, and redness in your leg or arm. This condition may be treated with a blood thinner (anticoagulant medicine), medicine that is injected to dissolve blood clots,compression stockings, or surgery. If you are prescribed blood thinners, take them exactly as told. This information is not intended to replace advice given to you by your health care provider. Make sure you discuss any questions you have with your health care provider. Document Released: 03/09/2006 Document Revised: 02/19/2018 Document Reviewed: 08/07/2017 [employer] Patient Education 2020 [employer] 02/08/2021 14:04:19 Monitored Anesthesia Care, Care After Monitored Anesthesia Care, Care After These instructions provide you with information about caring for yourself after your procedure. Your health care provider may also give you more specific instructions. Your treatment has been plannedaccording to current medical practices, but problems sometimes occur. Call your health care provider if you have any problems or questions after your procedure. What can I expect after the procedure? After your procedure, you may: Feel sleepy for several hours. Feel clumsy and have poor balance for several hours. Feel forgetful about what happened after the procedure. Have poor judgment for several hours. Feel nauseous or vomit. Have a sore throat if you had a breathing tube during the procedure. Follow these instructions at home: For at least 24 hours after the procedure: Have a responsible adult stay with you. It is important to have someone help care for you until youare awake and alert. Rest as needed. Do not: ?Participate in activities in which you could fall or become injured. ?Drive. ?Use heavy machinery. ?Drink alcohol. ?Take sleeping pills or medicines that cause drowsiness. ?Make important decisions or sign legal documents. ?Take care of children on your own. Eating and drinking Follow the diet that is recommended by your health care provider. If you vomit, drink water, juice, or soup when you can drink without vomiting. Make sure you have little or no nausea before eating solid foods. General instructions Take fzee-obp-qiajull and prescription medicines only as told by your health care provider. If you have sleep apnea, surgery and certain medicines can increase your risk for breathing problems. Follow instructions from your health care provider about wearing your sleep device: ?Anytime you are sleeping, including during daytime naps. ?While taking prescription pain medicines, sleeping medicines, or medicines that make you drowsy. If you smoke, do not smoke without supervision. Keep all follow-up visits as told by your health care provider. This is important. Contact a health care provider if: You keep feeling nauseous or you keep vomiting. You feel light-headed. You develop a rash. You have a fever. Get help right away if: You have trouble breathing. Summary For several hours after your procedure, you may feel sleepy and have poor judgment. Have a responsible adult stay with you for at least 24 hours or until you are awake and alert. This information is not intended to replace advice given to you by your health care provider. Make sure you discuss any questions you have with your health care provider. Document Released: 06/29/2016 Document Revised: 06/07/2018 Document Reviewed: 06/29/2016 [employer] Patient Education 2020 [employer]. 02/08/2021 14:02:55 Diabetes Mellitus and Foot Care Diabetes Mellitus and Foot Care Foot care is an important part of your health, especially when you have diabetes. Diabetes may cause you to have problems because of poor blood flow (circulation) to your feet and legs, which can cause your skin to: Become thinner and drier attendant. Break more easily. Heal more slowly. Peel and crack. You may also have nerve damage (neuropathy) in your legs and feet, causing decreased feeling in them. This means that you may not notice minor injuries to your feet that could lead to more serious problems. Noticing and addressing any potential problems early is the best way to prevent future foot problems. How to care for your feet Foot hygiene Wash your feet daily with warm water and mild soap. Do not use hot water. Then, pat your feet and the areas between your toes until they are completely dry. Do not soak your feet as this can dry yourskin. Trim your toenails straight across. Do not dig under them or around the cuticle. File the edges of your nails with an emery board or nail file. Apply a moisturizing lotion or petroleum jelly to the skin on your feet and to dry, brittle toenails. Use lotion that does not contain alcohol and is unscented. Do not apply lotion between your toes. Shoes and socks Wear clean socks or stockings every day. Make sure they are not too tight. Do not wear knee-high stockings since they may decrease blood flow to your legs. Wear shoes that fit properly and have enough cushioning. Always look in your shoes before you put them on to be sure there are no objects inside. To break in new shoes, wear them for just a few hours a day. This prevents injuries on your feet. Wounds, scrapes, corns, and calluses Check your feet daily for blisters, cuts, bruises, sores, and redness. If you cannot see the bottomof your feet, use a mirror or ask someone for help. Do not cut corns or calluses or try to remove them with medicine. If you find a minor scrape, cut, or break in the skin on your feet, keep it and the skin around it clean and dry. You may clean these areas with mild soap and water. Do not clean the area with peroxide, alcohol, or iodine. If you have a wound, scrape, corn, or callus on your foot, look at it several times a day to make sure it is healing and not infected. Check for: ?Redness, swelling, or pain. ?Fluid or blood. ?Warmth. ?Pus or a bad smell. General instructions Do not cross your legs. This may decrease blood flow to your feet. Do not use heating pads or hot water bottles on your feet. They may burn your skin. If you have lost feeling in your feet or legs, you may not know this is happening until it is too late. Protect your feet from hot and cold by wearing shoes, such as at the beach or on hot pavement. Schedule a complete foot exam at least once a year (annually) or more often if you have foot problems. If you have foot problems, report any cuts, sores, or bruises to your health care provider immediately. Contact a health care provider if: You have a medical condition that increases your risk of infection and you have any cuts, sores, orbruises on your feet. You have an injury that is not healing. You have redness on your legs or feet. You feel burning or tingling in your legs or feet. You have pain or cramps in your legs and feet. Your legs or feet are numb. Your feet always feel cold. You have pain around a toenail. Get help right away if: You have a wound, scrape, corn, or callus on your foot and: ?You have pain, swelling, or redness that gets worse. ?You have fluid or blood coming from the wound, scrape, corn, or callus. ?Your wound, scrape, corn, or callus feels warm to the touch. ?You have pus or a bad smell coming from the wound, scrape, corn, or callus. ?You have a fever. ?You have a red line going up your leg. Summary Check your feet every day for cuts, sores, red spots, swelling, and blisters. Moisturize feet and legs daily. Wear shoes that fit properly and have enough cushioning. If you have foot problems, report any cuts, sores, or bruises to your health care provider immediately. Schedule a complete foot exam at least once a year (annually) or more often if you have foot problems. This information is not intended to replace advice given to you by your health care provider. Make sure you discuss any questions you have with your health care provider. Document Released: 03/06/2001 Document Revised: 04/21/2018 Document Reviewed: 04/10/2017 [employer] Patient Education 2020 [employer]. 02/08/2021 14:02:53 Foot Care, Adult Foot Care, Adult Foot care is an important part of your health. Noticing and addressing any potential problems earlyis the best way to prevent future foot problems. How to care for your feet Foot Hygiene Wash your feet daily with warm water and mild soap. Do not use hot water. Then, pat your feet and the areas between your toes until they are completely dry. Do not soak your feet as this can dry yourskin. Trim your toenails straight across. Do not dig under them or around the cuticle. File the edges of your nails with an emery board or nail file. On the skin on your feet and on dry, brittle nails, apply a moisturizing lotion or petroleum jelly that is unscented and does not contain alcohol. Do not apply lotion between your toes. Shoes and Socks Wear clean socks or stockings every day. Make sure they are not too tight. Wear shoes that fit properly and have enough cushioning. To break in new shoes, wear them for just a few hours a day. This prevents you from injuring your feet. Always look in your shoes before you put them on to be sure there are no objects inside. Wounds, Scrapes, Corns, and Calluses Check your feet daily for blisters, cuts, and redness. If you cannot see the bottom of your feet, use a mirror or ask someone for help. Do not cut corns or calluses. Do not try to remove them with medicine. If you find a minor scrape, cut, or break in the skin on your feet, keep it and the skin around it clean and dry. These areas may be cleaned with mild soap and water. Do not clean the area with peroxide, alcohol, or iodine. If you have a wound, scrape, corn, or callus on your foot, look at it several times a day to make sure it is healing and is not infected. Check for: ?More redness, swelling, or pain. ?More fluid or blood. ?Warmth. ?Pus or a bad smell. General Instructions Do not cross your legs. That may decrease the blood flow to your feet. Do not use heating pads or hot water bottles on your feet. They may burn your skin. If you have lost feeling in your feet or legs, you may not know it is happening until it is too late. Make sure your health care provider does a complete foot exam at least annually or more often if you have foot problems. If you have foot problems, report any cuts, sores, or bruises to your health care provider immediately. Contact a health care provider if: You have a medical condition that increases your risk of infection and you have any cuts, sores, orbruises on your feet. You have an injury that is not healing. You notice redness on your legs or feet. You feel burning or tingling in your legs or feet. You have pain or cramps in your legs or feet. Your legs or feet are numb. Your feet always feel cold. You have pain around a toenail. Get help right away if: You have a wound, scrape, corn, or callus on your foot and: ?You have more redness, swelling, or pain. ?You have more fluid or blood. ?Your wound, scrape, corn, or callus feels warm to the touch. ?You have pus or a bad smell coming from the wound, scrape, corn, or callus. ?You have a fever. You have a red line going up your leg. This information is not intended to replace advice given to you by your health care provider. Make sure you discuss any questions you have with your health care provider. Document Released: 08/15/2016 Document Revised: 03/26/2017 Document Reviewed: 08/15/2016 [employer] Patient Education 2020 [employer]. Follow Up Care 01/30/2021 07:09:24 With:DIOMEDES COSME DP, Surgery Address: When: Unknown Comments:FOLLOW UP APPOINTMENT IS FEBRUARY 13, 2021 AT 3:[address] COSME WITH ANY CONCERNING QUESTIONSOR GO TO THE EMERGENCY DEPARTMENT WITH ANY URGENT CONCERNS. [facility] 11-19-2021 Evaluation + Plan noteExtracted from: Title:Clinical Document Author:DIOMEDES COSME D PM Date:02/08/21 [facility] ADMISSION HISTORY A [place] PHYSICIAL CHIEF COMPLAINT: HISTORY OF PRESENT ILLNESS: REVIEW OF SYSTEMS: ACTIVE PROBLEMS: (21) Anxiety ([id number]) Arthritis (1751780) Back pain (378604554) Chest pain (16229455) Chronic kidney disease, stage III (moderate) (4454818556) Depression ([id number]) Detached retina ([id number]) Diabetes mellitus (569046004) Fall (9187669) Fibromyalgia (30716544) GERD - Gastro-esophageal reflux disease ([id number]) Headache (68235811) IBS - Irritable bowel syndrome (0847146484) Knee pain, right (92238310) Neuropathy (3698841138) Overactive bladder (801497761) Peripheral neuropathy (644702018) Pneumonia due to COVID-19 virus (8044720840) Restless leg ([id number]) Shortness of breath (189997366) TIA (786418304) MEDICATIONS: Active Inpt Meds: cefOXitin Start: 02/08/21 9:56:00 EST, Dose = 1 gram(s), IV Piggyback, PREOP pharm, Rate: 200 mL/hr, Infuse over: 30 minute(s), 0 Active PRN Meds: None One Time Meds: None Active IV Meds: Lactated Ringers Infusion 1,000 mL (LR 1,000 mL) Start: 02/08/21 9:56:00 EST, Rate: 125 mL/hr ALLERGIES: (1) NKA FAMILY HISTORY: SOCIAL HISTORY: PHYSICAL EXAM: VITALS: DovmsnOrrwQFMmpkrDONvC3TIM9MnsbVp(kg) 02/08 09:5736.4139/[id number] 24 Hr Tmax: 36.4 at 02/08 09:57 36 Hr Tmax: 36.4 at 02/08 09:57 Vital Signs are the last 5 in the past 48 hours. Weights display the last 5 within 7 days. Initial Wt: No Data Available Current Wt: No Data Available GENERAL: HEENT: CARDIOVASCULAR: RESPIRATORY: ABDOMEN: EXREMETIES: NEUROLOGICAL: PSYCHIATRIC: LABS: 36hr Labs 02/08 1004 Blood Glucose, [id number] Blood Glucose, [id number] DIAGNOSTICS: IMPRESSION: PLAN: History and Physical Update I have examined the patient; reviewed the H&P and there are no changes to the H&P unless noted below. [facility] 11-17-2021 Miscellaneous Notes* Telephone Encounter - Dinora Hutton LPN - 02/06/2021 10:21 AM EST Phone call placed patient given [facility] information, had questions in regards to scheduling. Dinora Hutton LPN [facility]* Telephone Encounter - Dinora Hutton LPN - 01/22/2021 8:33 AM EDT Phone call brief message on patients identified voicemail, 01/29/21 appointment updated to 3:30. Dinora Hutton LPN [facility] of Past illness Narrative* Problem Noted Date Resolved Date Obesity, Class III, BMI >= 40 02/02/2019 Left lower quadrant pain 08/22/2015 016 Dyspepsia 08/22/2015 08/22/2015 TIA (transient ischemic attack) 08/16/2015 08/17/2015 Morbid obesity with BMI of 40.0-44.9, adult 08/2209/16/2017 documented as of this encounter (statuses as of 01/31/2022) [facility]* Problem Noted Date Resolved Date Obesity, Class III, BMI >= 40 02/02/2019 Left lower quadrant pain 08/22/2015 016 Dyspepsia 08/22/2015 08/22/2015 TIA (transient ischemic attack) 08/16/2015 08/17/2015 Morbid obesity with BMI of 40.0-44.9, adult 08/2209/16/2017 documented as of this encounter (statuses as of 02/04/2022) [facility]* Problem Noted Date Resolved Date Obesity, Class III, BMI >= 40 02/02/2019 Left lower quadrant pain 08/22/2015 016 Dyspepsia 08/22/2015 08/22/2015 TIA (transient ischemic attack) 08/16/2015 08/17/2015 Morbid obesity with BMI of 40.0-44.9, adult 08/2209/16/2017 documented as of this encounter (statuses as of 02/25/2022) [facility]* Problem Noted Date Resolved Date Obesity, Class III, BMI >= 40 02/02/2019 Left lower quadrant pain 08/22/2015 016 Dyspepsia 08/22/2015 08/22/2015 TIA (transient ischemic attack) 08/16/2015 08/17/2015 Morbid obesity with BMI of 40.0-44.9, adult 08/2209/16/2017 documented as of this encounter (statuses as of 03/05/2022) [facility]* Problem Noted Date Resolved Date Obesity, Class III, BMI >= 40 02/02/2019 Left lower quadrant pain 08/22/2015 016 Dyspepsia 08/22/2015 08/22/2015 TIA (transient ischemic attack) 08/16/2015 08/17/2015 Morbid obesity with BMI of 40.0-44.9, adult 08/2209/16/2017 documented as of this encounter (statuses as of 03/05/2022) [facility]* Problem Noted Date Resolved Date Obesity, Class III, BMI >= 40 02/02/2019 Left lower quadrant pain 08/22/2015 016 Dyspepsia 08/22/2015 08/22/2015 TIA (transient ischemic attack) 08/16/2015 08/17/2015 Morbid obesity with BMI of 40.0-44.9, adult 08/2209/16/2017 documented as of this encounter (statuses as of 03/05/2022) [facility]* Problem Noted Date Resolved Date Obesity, Class III, BMI >= 40 02/02/2019 Left lower quadrant pain 08/22/2015 016 Dyspepsia 08/22/2015 08/22/2015 TIA (transient ischemic attack) 08/16/2015 08/17/2015 Morbid obesity with BMI of 40.0-44.9, adult 08/2209/16/2017 documented as of this encounter (statuses as of 04/04/2022) [facility]* Problem Noted Date Resolved Date Obesity, Class III, BMI >= 40 02/02/2019 Left lower quadrant pain 08/22/2015 016 Dyspepsia 08/22/2015 08/22/2015 TIA (transient ischemic attack) 08/16/2015 08/17/2015 Morbid obesity with BMI of 40.0-44.9, adult 08/2209/16/2017 documented as of this encounter (statuses as of 04/04/2022) [facility]* Problem Noted Date Resolved Date Obesity, Class III, BMI >= 40 02/02/2019 Left lower quadrant pain 08/22/2015 016 Dyspepsia 08/22/2015 08/22/2015 TIA (transient ischemic attack) 08/16/2015 08/17/2015 Morbid obesity with BMI of 40.0-44.9, adult 08/2209/16/2017 documented as of this encounter (statuses as of 04/25/2022) [facility]* Problem Noted Date Resolved Date Obesity, Class III, BMI >= 40 02/02/2019 Left lower quadrant pain 08/22/2015 016 Dyspepsia 08/22/2015 08/22/2015 TIA (transient ischemic attack) 08/16/2015 08/17/2015 Morbid obesity with BMI of 40.0-44.9, adult 08/2209/16/2017 documented as of this encounter (statuses as of 04/28/2022) [facility]* Problem Noted Date Resolved Date Obesity, Class III, BMI >= 40 02/02/2019 Left lower quadrant pain 08/22/2015 016 Dyspepsia 08/22/2015 08/22/2015 TIA (transient ischemic attack) 08/16/2015 08/17/2015 Morbid obesity with BMI of 40.0-44.9, adult 08/2209/16/2017 documented as of this encounter (statuses as of 05/12/2022) [facility]* Problem Noted Date Resolved Date Obesity, Class III, BMI >= 40 02/02/2019 Left lower quadrant pain 08/22/2015 016 Dyspepsia 08/22/2015 08/22/2015 TIA (transient ischemic attack) 08/16/2015 08/17/2015 Morbid obesity with BMI of 40.0-44.9, adult 08/2209/16/2017 documented as of this encounter (statuses as of 05/19/2022) [facility]* Problem Noted Date Resolved Date Obesity, Class III, BMI >= 40 02/02/2019 Left lower quadrant pain 08/22/2015 016 Dyspepsia 08/22/2015 08/22/2015 TIA (transient ischemic attack) 08/16/2015 08/17/2015 Morbid obesity with BMI of 40.0-44.9, adult 08/2209/16/2017 documented as of this encounter (statuses as of 05/24/2022) [facility]* Problem Noted Date Resolved Date Obesity, Class III, BMI >= 40 02/02/2019 Left lower quadrant pain 08/22/2015 016 Dyspepsia 08/22/2015 08/22/2015 TIA (transient ischemic attack) 08/16/2015 08/17/2015 Morbid obesity with BMI of 40.0-44.9, adult 08/2209/16/2017 documented as of this encounter (statuses as of 05/24/2022) [facility]* Problem Noted Date Resolved Date Obesity, Class III, BMI >= 40 02/02/2019 Left lower quadrant pain 08/22/2015 016 Dyspepsia 08/22/2015 08/22/2015 TIA (transient ischemic attack) 08/16/2015 08/17/2015 Morbid obesity with BMI of 40.0-44.9, adult 08/2209/16/2017 documented as of this encounter (statuses as of 05/26/2022) [facility]* Problem Noted Date Resolved Date Obesity, Class III, BMI >= 40 02/02/2019 Left lower quadrant pain 08/22/2015 016 Dyspepsia 08/22/2015 08/22/2015 TIA (transient ischemic attack) 08/16/2015 08/17/2015 Morbid obesity with BMI of 40.0-44.9, adult 08/2209/16/2017 documented as of this encounter (statuses as of 05/26/2022) [facility]* Problem Noted Date Resolved Date Obesity, Class III, BMI >= 40 02/02/2019 Left lower quadrant pain 08/22/2015 016 Dyspepsia 08/22/2015 08/22/2015 TIA (transient ischemic attack) 08/16/2015 08/17/2015 Morbid obesity with BMI of 40.0-44.9, adult 08/2209/16/2017 documented as of this encounter (statuses as of 06/02/2022) [facility]* Problem Noted Date Resolved Date Obesity, Class III, BMI >= 40 02/02/2019 Left lower quadrant pain 08/22/2015 016 Dyspepsia 08/22/2015 08/22/2015 TIA (transient ischemic attack) 08/16/2015 08/17/2015 Morbid obesity with BMI of 40.0-44.9, adult 08/2209/16/2017 documented as of this encounter (statuses as of 06/03/2022) [facility]* Problem Noted Date Resolved Date Obesity, Class III, BMI >= 40 02/02/2019 Left lower quadrant pain 08/22/2015 016 Dyspepsia 08/22/2015 08/22/2015 TIA (transient ischemic attack) 08/16/2015 08/17/2015 Morbid obesity with BMI of 40.0-44.9, adult 08/2209/16/2017 documented as of this encounter (statuses as of 06/09/2022) [facility] Problem Noted Date Resolved Date Obesity, Class III, BMI >= 40 02/02/2019 Left lower quadrant pain 08/22/2015 016 Dyspepsia 08/22/2015 08/22/2015 TIA (transient ischemic attack) 08/16/2015 08/17/2015 Morbid obesity with BMI of 40.0-44.9, adult 08/2209/16/2017 documented as of this encounter (statuses as of 06/17/2022) [facility]* Problem Noted Date Resolved Date Obesity, Class III, BMI >= 40 02/02/2019 Left lower quadrant pain 08/22/2015 016 Dyspepsia 08/22/2015 08/22/2015 TIA (transient ischemic attack) 08/16/2015 08/17/2015 Morbid obesity with BMI of 40.0-44.9, adult 08/2209/16/2017 documented as of this encounter (statuses as of 06/24/2022) [facility]* Problem Noted Date Resolved Date Obesity, Class III, BMI >= 40 02/02/2019 Left lower quadrant pain 08/22/2015 016 Dyspepsia 08/22/2015 08/22/2015 TIA (transient ischemic attack) 08/16/2015 08/17/2015 Morbid obesity with BMI of 40.0-44.9, adult 08/2209/16/2017 documented as of this encounter (statuses as of 06/25/2022) [facility]* Problem Noted Date Resolved Date Obesity, Class III, BMI >= 40 02/02/2019 Left lower quadrant pain 08/22/2015 016 Dyspepsia 08/22/2015 08/22/2015 TIA (transient ischemic attack) 08/16/2015 08/17/2015 Morbid obesity with BMI of 40.0-44.9, adult 08/2209/16/2017 documented as of this encounter (statuses as of 06/25/2022) [facility]* Problem Noted Date Resolved Date Obesity, Class III, BMI >= 40 02/02/2019 Left lower quadrant pain 08/22/2015 016 Dyspepsia 08/22/2015 08/22/2015 TIA (transient ischemic attack) 08/16/2015 08/17/2015 Morbid obesity with BMI of 40.0-44.9, adult 08/2209/16/2017 documented as of this encounter (statuses as of 07/04/2022) [facility]* Problem Noted Date Resolved Date Obesity, Class III, BMI >= 40 02/02/2019 Left lower quadrant pain 08/22/2015 016 Dyspepsia 08/22/2015 08/22/2015 TIA (transient ischemic attack) 08/16/2015 08/17/2015 Morbid obesity with BMI of 40.0-44.9, adult 08/2209/16/2017 documented as of this encounter (statuses as of 07/07/2022) [facility]* Problem Noted Date Resolved Date Obesity, Class III, BMI >= 40 02/02/2019 Left lower quadrant pain 08/22/2015 016 Dyspepsia 08/22/2015 08/22/2015 TIA (transient ischemic attack) 08/16/2015 08/17/2015 Morbid obesity with BMI of 40.0-44.9, adult 08/2209/16/2017 documented as of this encounter (statuses as of 07/15/2022) [facility]* Problem Noted Date Resolved Date Obesity, Class III, BMI >= 40 02/02/2019 Left lower quadrant pain 08/22/2015 016 Dyspepsia 08/22/2015 08/22/2015 TIA (transient ischemic attack) 08/16/2015 08/17/2015 Morbid obesity with BMI of 40.0-44.9, adult 08/2209/16/2017 documented as of this encounter (statuses as of 07/17/2022) [facility]* Problem Noted Date Resolved Date Obesity, Class III, BMI >= 40 02/02/2019 Left lower quadrant pain 08/22/2015 016 Dyspepsia 08/22/2015 08/22/2015 TIA (transient ischemic attack) 08/16/2015 08/17/2015 Morbid obesity with BMI of 40.0-44.9, adult 08/2209/16/2017 documented as of this encounter (statuses as of 07/17/2022) [facility]* Problem Noted Date Resolved Date Obesity, Class III, BMI >= 40 02/02/2019 Left lower quadrant pain 08/22/2015 016 Dyspepsia 08/22/2015 08/22/2015 TIA (transient ischemic attack) 08/16/2015 08/17/2015 Morbid obesity with BMI of 40.0-44.9, adult 08/2209/16/2017 documented as of this encounter (statuses as of 07/18/2022) [facility]* Problem Noted Date Resolved Date Obesity, Class III, BMI >= 40 02/02/2019 Left lower quadrant pain 08/22/2015 016 Dyspepsia 08/22/2015 08/22/2015 TIA (transient ischemic attack) 08/16/2015 08/17/2015 Morbid obesity with BMI of 40.0-44.9, adult 08/2209/16/2017 documented as of this encounter (statuses as of 07/18/2022) [facility]* Problem Noted Date Resolved Date Obesity, Class III, BMI >= 40 02/02/2019 Left lower quadrant pain 08/22/2015 016 Dyspepsia 08/22/2015 08/22/2015 TIA (transient ischemic attack) 08/16/2015 08/17/2015 Morbid obesity with BMI of 40.0-44.9, adult 08/2209/16/2017 documented as of this encounter (statuses as of 07/25/2022) [facility]* Problem Noted Date Resolved Date Obesity, Class III, BMI >= 40 02/02/2019 Left lower quadrant pain 08/22/2015 016 Dyspepsia 08/22/2015 08/22/2015 TIA (transient ischemic attack) 08/16/2015 08/17/2015 Morbid obesity with BMI of 40.0-44.9, adult 08/2209/16/2017 documented as of this encounter (statuses as of 09/16/2022) [facility]* Problem Noted Date Resolved Date Obesity, Class III, BMI >= 40 02/02/2019 Left lower quadrant pain 08/22/2015 016 Dyspepsia 08/22/2015 08/22/2015 TIA (transient ischemic attack) 08/16/2015 08/17/2015 Morbid obesity with BMI of 40.0-44.9, adult 08/2209/16/2017 documented as of this encounter (statuses as of 09/17/2022) [facility]* Problem Noted Date Diagnosed Date Resolved Date Obesity, Class III, BMI >= 40 02/02/2019 01/27/2022 Left lower quadrant pain 08/22/201503/2015 Dyspepsia 08/22/2015 08/22/2015 TIA (transient ischemic attack) 08/16/2015 08/17/2015 Morbid obesity with BMI of 40.0-44.9, adult 09/12/2014 09/16/2017 documented as of this encounter (statuses as of 09/30/2022) [facility]* Problem Noted Date Diagnosed Date Resolved Date Obesity, Class III, BMI >= 40 02/02/2019 01/27/2022 Left lower quadrant pain 08/22/201503/2015 Dyspepsia 08/22/2015 08/22/2015 TIA (transient ischemic attack) 08/16/2015 08/17/2015 Morbid obesity with BMI of 40.0-44.9, adult 09/12/2014 09/16/2017 documented as of this encounter (statuses as of 09/30/2022) [facility]* Problem Noted Date Diagnosed Date Resolved Date Obesity, Class III, BMI >= 40 02/02/2019 01/27/2022 Left lower quadrant pain 08/22/201503/2015 Dyspepsia 08/22/2015 08/22/2015 TIA (transient ischemic attack) 08/16/2015 08/17/2015 Morbid obesity with BMI of 40.0-44.9, adult 09/12/2014 09/16/2017 documented as of this encounter (statuses as of 10/01/2022) [facility] Problem Noted Date Diagnosed Date Resolved Date Obesity, Class III, BMI >= 40 02/02/2019 01/27/2022 Left lower quadrant pain 08/22/201503/2015 Dyspepsia 08/22/2015 08/22/2015 TIA (transient ischemic attack) 08/16/2015 08/17/2015 Morbid obesity with BMI of 40.0-44.9, adult 09/12/2014 09/16/2017 documented as of this encounter (statuses as of 10/21/2022) [facility]* Problem Noted Date Diagnosed Date Resolved Date Obesity, Class III, BMI >= 40 02/02/2019 01/27/2022 Left lower quadrant pain 08/22/201503/2015 Dyspepsia 08/22/2015 08/22/2015 TIA (transient ischemic attack) 08/16/2015 08/17/2015 Morbid obesity with BMI of 40.0-44.9, adult 09/12/2014 09/16/2017 documented as of this encounter (statuses as of 10/21/2022) [facility]* Problem Noted Date Diagnosed Date Resolved Date Obesity, Class III, BMI >= 40 02/02/2019 01/27/2022 Left lower quadrant pain 08/22/201503/2015 Dyspepsia 08/22/2015 08/22/2015 TIA (transient ischemic attack) 08/16/2015 08/17/2015 Morbid obesity with BMI of 40.0-44.9, adult 09/12/2014 09/16/2017 documented as of this encounter (statuses as of 10/29/2022) [facility] Problem Noted Date Diagnosed Date Resolved Date Obesity, Class III, BMI >= 40 02/02/2019 01/27/2022 Left lower quadrant pain 08/22/201503/2015 Dyspepsia 08/22/2015 08/22/2015 TIA (transient ischemic attack) 08/16/2015 08/17/2015 Morbid obesity with BMI of 40.0-44.9, adult 09/12/2014 09/16/2017 documented as of this encounter (statuses as of 11/08/2022) [facility] Problem Noted Date Diagnosed Date Resolved Date Obesity, Class III, BMI >= 40 02/02/2019 01/27/2022 Left lower quadrant pain 08/22/201503/2015 Dyspepsia 08/22/2015 08/22/2015 TIA (transient ischemic attack) 08/16/2015 08/17/2015 Morbid obesity with BMI of 40.0-44.9, adult 09/12/2014 09/16/2017 documented as of this encounter (statuses as of 11/08/2022) [facility] Problem Noted Date Diagnosed Date Resolved Date Obesity, Class III, BMI >= 40 02/02/2019 01/27/2022 Left lower quadrant pain 08/22/201503/2015 Dyspepsia 08/22/2015 08/22/2015 TIA (transient ischemic attack) 08/16/2015 08/17/2015 Morbid obesity with BMI of 40.0-44.9, adult 09/12/2014 09/16/2017 documented as of this encounter (statuses as of 11/10/2022) [facility] Problem Noted Date Diagnosed Date Resolved Date Obesity, Class III, BMI >= 40 02/02/2019 01/27/2022 Left lower quadrant pain 08/22/201503/2015 Dyspepsia 08/22/2015 08/22/2015 TIA (transient ischemic attack) 08/16/2015 08/17/2015 Morbid obesity with BMI of 40.0-44.9, adult 09/12/2014 09/16/2017 documented as of this encounter (statuses as of 11/18/2022) [facility] Problem Noted Date Diagnosed Date Resolved Date Obesity, Class III, BMI >= 40 02/02/2019 01/27/2022 Left lower quadrant pain 08/22/201503/2015 Dyspepsia 08/22/2015 08/22/2015 TIA (transient ischemic attack) 08/16/2015 08/17/2015 Morbid obesity with BMI of 40.0-44.9, adult 09/12/2014 09/16/2017 documented as of this encounter (statuses as of 11/19/2022) [facility]* Problem Noted Date Diagnosed Date Resolved Date Obesity, Class III, BMI >= 40 02/02/2019 01/27/2022 Left lower quadrant pain 08/22/201503/2015 Dyspepsia 08/22/2015 08/22/2015 TIA (transient ischemic attack) 08/16/2015 08/17/2015 Morbid obesity with BMI of 40.0-44.9, adult 09/12/2014 09/16/2017 documented as of this encounter (statuses as of 11/25/2022) [facility] Problem Noted Date Diagnosed Date Resolved Date Obesity, Class III, BMI >= 40 02/02/2019 01/27/2022 Left lower quadrant pain 08/22/201503/2015 Dyspepsia 08/22/2015 08/22/2015 TIA (transient ischemic attack) 08/16/2015 08/17/2015 Morbid obesity with BMI of 40.0-44.9, adult 09/12/2014 09/16/2017 documented as of this encounter (statuses as of 11/26/2022) [facility]* Problem Noted Date Diagnosed Date Resolved Date Obesity, Class III, BMI >= 40 02/02/2019 01/27/2022 Left lower quadrant pain 08/22/201503/2015 Dyspepsia 08/22/2015 08/22/2015 TIA (transient ischemic attack) 08/16/2015 08/17/2015 Morbid obesity with BMI of 40.0-44.9, adult 09/12/2014 09/16/2017 documented as of this encounter (statuses as of 11/26/2022) [facility]* Problem Noted Date Diagnosed Date Resolved Date Obesity, Class III, BMI >= 40 02/02/2019 01/27/2022 Left lower quadrant pain 08/22/201503/2015 Dyspepsia 08/22/2015 08/22/2015 TIA (transient ischemic attack) 08/16/2015 08/17/2015 Morbid obesity with BMI of 40.0-44.9, adult 09/12/2014 09/16/2017 documented as of this encounter (statuses as of 11/26/2022) [facility]* Problem Noted Date Diagnosed Date Resolved Date Obesity, Class III, BMI >= 40 02/02/2019 01/27/2022 Left lower quadrant pain 08/22/201503/2015 Dyspepsia 08/22/2015 08/22/2015 TIA (transient ischemic attack) 08/16/2015 08/17/2015 Morbid obesity with BMI of 40.0-44.9, adult 09/12/2014 09/16/2017 documented as of this encounter (statuses as of 12/03/2022) [facility]* Problem Noted Date Diagnosed Date Resolved Date Obesity, Class III, BMI >= 40 02/02/2019 01/27/2022 Left lower quadrant pain 08/22/201503/2015 Dyspepsia 08/22/2015 08/22/2015 TIA (transient ischemic attack) 08/16/2015 08/17/2015 Morbid obesity with BMI of 40.0-44.9, adult 09/12/2014 09/16/2017 documented as of this encounter (statuses as of 12/09/2022) [facility]* Problem Noted Date Diagnosed Date Resolved Date Obesity, Class III, BMI >= 40 02/02/2019 01/27/2022 Left lower quadrant pain 08/22/201503/2015 Dyspepsia 08/22/2015 08/22/2015 TIA (transient ischemic attack) 08/16/2015 08/17/2015 Morbid obesity with BMI of 40.0-44.9, adult 09/12/2014 09/16/2017 documented as of this encounter (statuses as of 12/12/2022) [facility]* Problem Noted Date Diagnosed Date Resolved Date Obesity, Class III, BMI >= 40 02/02/2019 01/27/2022 Left lower quadrant pain 08/22/201503/2015 Dyspepsia 08/22/2015 08/22/2015 TIA (transient ischemic attack) 08/16/2015 08/17/2015 Morbid obesity with BMI of 40.0-44.9, adult 09/12/2014 09/16/2017 documented as of this encounter (statuses as of 12/15/2022) [facility]* Problem Noted Date Diagnosed Date Resolved Date Obesity, Class III, BMI >= 40 02/02/2019 01/27/2022 Left lower quadrant pain 08/22/201503/2015 Dyspepsia 08/22/2015 08/22/2015 TIA (transient ischemic attack) 08/16/2015 08/17/2015 Morbid obesity with BMI of 40.0-44.9, adult 09/12/2014 09/16/2017 documented as of this encounter (statuses as of 12/17/2022) [facility]* Problem Noted Date Diagnosed Date Resolved Date Obesity, Class III, BMI >= 40 02/02/2019 01/27/2022 Left lower quadrant pain 08/22/201503/2015 Dyspepsia 08/22/2015 08/22/2015 TIA (transient ischemic attack) 08/16/2015 08/17/2015 Morbid obesity with BMI of 40.0-44.9, adult 09/12/2014 09/16/2017 documented as of this encounter (statuses as of 12/23/2022) [facility]* Problem Noted Date Diagnosed Date Resolved Date Obesity, Class III, BMI >= 40 02/02/2019 01/27/2022 Left lower quadrant pain 08/22/201503/2015 Dyspepsia 08/22/2015 08/22/2015 TIA (transient ischemic attack) 08/16/2015 08/17/2015 Morbid obesity with BMI of 40.0-44.9, adult 09/12/2014 09/16/2017 documented as of this encounter (statuses as of 01/07/2023) [facility]* Problem Noted Date Diagnosed Date Resolved Date Obesity, Class III, BMI >= 40 02/02/2019 01/27/2022 Left lower quadrant pain 08/22/201503/2015 Dyspepsia 08/22/2015 08/22/2015 TIA (transient ischemic attack) 08/16/2015 08/17/2015 Morbid obesity with BMI of 40.0-44.9, adult 09/12/2014 09/16/2017 documented as of this encounter (statuses as of 01/09/2023) [facility]* Problem Noted Date Diagnosed Date Resolved Date Obesity, Class III, BMI >= 40 02/02/2019 01/27/2022 Left lower quadrant pain 08/22/201503/2015 Dyspepsia 08/22/2015 08/22/2015 TIA (transient ischemic attack) 08/16/2015 08/17/2015 Morbid obesity with BMI of 40.0-44.9, adult 09/12/2014 09/16/2017 documented as of this encounter (statuses as of 01/15/2023) [facility] Problem Noted Date Diagnosed Date Resolved Date Obesity, Class III, BMI >= 40 02/02/2019 01/27/2022 Left lower quadrant pain 08/22/201503/2015 Dyspepsia 08/22/2015 08/22/2015 TIA (transient ischemic attack) 08/16/2015 08/17/2015 Morbid obesity with BMI of 40.0-44.9, adult 09/12/2014 09/16/2017 documented as of this encounter (statuses as of 01/15/2023) [facility]2019 History of Past illness Narrative* Problem Noted Date Diagnosed Date Resolved Date Obesity, Class III, BMI >= 40 02/02/2019 01/27/2022 Left lower quadrant pain 08/22/201503/2015 Dyspepsia 08/22/2015 08/22/2015 TIA (transient ischemic attack) 08/16/2015 08/17/2015 Morbid obesity with BMI of 40.0-44.9, adult 09/12/2014 09/16/2017 documented as of this encounter (statuses as of 01/25/2023) [facility] History of Past illness Narrative* Problem Noted Date Diagnosed Date Resolved Date Obesity, Class III, BMI >= 40 02/02/2019 01/27/2022 Left lower quadrant pain 08/22/201503/2015 Dyspepsia 08/22/2015 08/22/2015 TIA (transient ischemic attack) 08/16/2015 08/17/2015 Morbid obesity with BMI of 40.0-44.9, adult 09/12/2014 09/16/2017 documented as of this encounter (statuses as of 01/25/2023) [facility] History of Past illness Narrative* Problem Noted Date Diagnosed Date Resolved Date Obesity, Class III, BMI >= 40 02/02/2019 01/27/2022 Left lower quadrant pain 08/22/201503/2015 Dyspepsia 08/22/2015 08/22/2015 TIA (transient ischemic attack) 08/16/2015 08/17/2015 Morbid obesity with BMI of 40.0-44.9, adult 09/12/2014 09/16/2017 documented as of this encounter (statuses as of 01/25/2023) [facility] History of Past illness Narrative* Problem Noted Date Diagnosed Date Resolved Date Obesity, Class III, BMI >= 40 02/02/2019 01/27/2022 Left lower quadrant pain 08/22/201503/2015 Dyspepsia 08/22/2015 08/22/2015 TIA (transient ischemic attack) 08/16/2015 08/17/2015 Morbid obesity with BMI of 40.0-44.9, adult 09/12/2014 09/16/2017 documented as of this encounter (statuses as of 01/27/2023) [facility] History of Past illness Narrative* Problem Noted Date Diagnosed Date Resolved Date Obesity, Class III, BMI >= 40 02/02/2019 01/27/2022 Left lower quadrant pain 08/22/201503/2015 Dyspepsia 08/22/2015 08/22/2015 TIA (transient ischemic attack) 08/16/2015 08/17/2015 Morbid obesity with BMI of 40.0-44.9, adult 09/12/2014 09/16/2017 documented as of this encounter (statuses as of 02/16/2023) [facility] History of Past illness Narrative* Problem Noted Date Diagnosed Date Resolved Date Obesity, Class III, BMI >= 40 02/02/2019 01/27/2022 Left lower quadrant pain 08/22/201503/2015 Dyspepsia 08/22/2015 08/22/2015 TIA (transient ischemic attack) 08/16/2015 08/17/2015 Morbid obesity with BMI of 40.0-44.9, adult 09/12/2014 09/16/2017 documented as of this encounter (statuses as of 02/23/2023) [facility] History of Past illness Narrative* Problem Noted Date Resolved Date Left lower quadrant pain 08/22/2015 016 Dyspepsia 08/22/2015 08/22/2015 TIA (transient ischemic attack) 08/16/2015 08/17/2015 Morbid obesity with BMI of 40.0-44.9, adult 06/05/201409/16/2017 documented as of this encounter (statuses as of 07/12/2021) [facility] Past illness Narrative* Problem Noted Date Resolved Date Left lower quadrant pain 08/22/2015 016 Dyspepsia 08/22/2015 08/22/2015 TIA (transient ischemic attack) 08/16/2015 08/17/2015 Morbid obesity with BMI of 40.0-44.9, adult 06/05/201409/16/2017 documented as of this encounter (statuses as of 07/15/2021) [facility] Past [facility] Narrative* Problem Noted Date Resolved Date Left lower quadrant pain 08/22/2015 016 Dyspepsia 08/22/2015 08/22/2015 TIA (transient ischemic attack) 08/16/2015 08/17/2015 Morbid obesity with BMI of 40.0-44.9, adult /05/201409/16/2017 documented as of this encounter (statuses as of 08/08/2021) [facility] of Past illness Narrative* Problem Noted Date Resolved Date Left lower quadrant pain 08/22/2015 016 Dyspepsia 08/22/2015 08/22/2015 TIA (transient ischemic attack) 08/16/2015 08/17/2015 Morbid obesity with BMI of 40.0-44.9, adult 08/2209/16/2017 documented as of this encounter (statuses as of 08/14/2021) [facility] Past illness Narrative* Problem Noted Date Resolved Date Left lower quadrant pain 08/22/2015 016 Dyspepsia 08/22/2015 08/22/2015 TIA (transient ischemic attack) 08/16/2015 08/17/2015 Morbid obesity with BMI of 40.0-44.9, adult /05/201409/16/2017 documented as of this encounter (statuses as of 08/27/2021) [facility] Narrative* Problem Noted Date Resolved Date Left lower quadrant pain 08/22/2015 016 Dyspepsia 08/22/2015 08/22/2015 TIA (transient ischemic attack) 08/16/2015 08/17/2015 Morbid obesity with BMI of 40.0-44.9, adult /05/201409/16/2017 documented as of this encounter (statuses as of 10/09/2021) [facility] Past illness Narrative* Problem Noted Date Resolved Date Left lower quadrant pain 08/22/2015 016 Dyspepsia 08/22/2015 08/22/2015 TIA (transient ischemic attack) 08/16/2015 08/17/2015 Morbid obesity with BMI of 40.0-44.9, adult /05/201409/16/2017 documented as of this encounter (statuses as of 10/17/2021) [facility] Past illness Narrative* Problem Noted Date Resolved Date Left lower quadrant pain 08/22/2015 016 Dyspepsia 08/22/2015 08/22/2015 TIA (transient ischemic attack) 08/16/2015 08/17/2015 Morbid obesity with BMI of 40.0-44.9, adult 08/2209/16/2017 documented as of this encounter (statuses as of 10/17/2021) [facility] Past illness Narrative* Problem Noted Date Resolved Date Left lower quadrant pain 08/22/2015 016 Dyspepsia 08/22/2015 08/22/2015 TIA (transient ischemic attack) 08/16/2015 08/17/2015 Morbid obesity with BMI of 40.0-44.9, adult 08/2209/16/2017 documented as of this encounter (statuses as of 10/17/2021) [facility] of Past illness Narrative* Problem Noted Date Resolved Date Left lower quadrant pain 08/22/2015 016 Dyspepsia 08/22/2015 08/22/2015 TIA (transient ischemic attack) 08/16/2015 08/17/2015 Morbid obesity with BMI of 40.0-44.9, adult /05/201409/16/2017 documented as of this encounter (statuses as of 10/21/2021) [facility] History of Past illness Narrative* Problem Noted Date Resolved Date Left lower quadrant pain 08/22/2015 016 Dyspepsia 08/22/2015 08/22/2015 TIA (transient ischemic attack) 08/16/2015 08/17/2015 Morbid obesity with BMI of 40.0-44.9, adult /05/201409/16/2017 documented as of this encounter (statuses as of 10/24/2021) [facility] of Past illness Narrative* Problem Noted Date Resolved Date Left lower quadrant pain 08/22/2015 016 Dyspepsia 08/22/2015 08/22/2015 TIA (transient ischemic attack) 08/16/2015 08/17/2015 Morbid obesity with BMI of 40.0-44.9, adult /05/201409/16/2017 documented as of this encounter (statuses as of 10/30/2021) [address]01-2016 History of Past illness Narrative* Problem Noted Date Resolved Date Left lower quadrant pain 08/22/2015 016 Dyspepsia 08/22/2015 08/22/2015 TIA (transient ischemic attack) 08/16/2015 08/17/2015 Morbid obesity with BMI of 40.0-44.9, adult /05/201409/16/2017 documented as of this encounter (statuses as of 12/06/2021) [facility]arrative* Problem Noted Date Resolved Date Left lower quadrant pain 08/22/2015 016 Dyspepsia 08/22/2015 08/22/2015 TIA (transient ischemic attack) 08/16/2015 08/17/2015 Morbid obesity with BMI of 40.0-44.9, adult /05/201409/16/2017 documented as of this encounter (statuses as of 12/14/2021) [facility] of Past illness Narrative* Problem Noted Date Resolved Date Left lower quadrant pain 08/22/2015 016 Dyspepsia 08/22/2015 08/22/2015 TIA (transient ischemic attack) 08/16/2015 08/17/2015 Morbid obesity with BMI of 40.0-44.9, adult /05/201409/16/2017 documented as of this encounter (statuses as of 12/24/2021) [address]01-2016 History of Past illness Narrative* Problem Noted Date Resolved Date Left lower quadrant pain 08/22/2015 016 Dyspepsia 08/22/2015 08/22/2015 TIA (transient ischemic attack) 08/16/2015 08/17/2015 Morbid obesity with BMI of 40.0-44.9, adult 06/05/201409/16/2017 documented as of this encounter (statuses as of 12/26/2021) [facility] of Past illness Narrative* Problem Noted Date Resolved Date Left lower quadrant pain 08/22/2015 016 Dyspepsia 08/22/2015 08/22/2015 TIA (transient ischemic attack) 08/16/2015 08/17/2015 Morbid obesity with BMI of 40.0-44.9, adult 08/2209/16/2017 documented as of this encounter (statuses as of 01/15/2022) [facility] of Past illness Narrative* Problem Noted Date Resolved Date Left lower quadrant pain 08/22/2015 016 Dyspepsia 08/22/2015 08/22/2015 TIA (transient ischemic attack) 08/16/2015 08/17/2015 Morbid obesity with BMI of 40.0-44.9, adult 08/2209/16/2017 documented as of this encounter (statuses as of 01/15/2022) [facility] of Past illness Narrative* Problem Noted Date Resolved Date Left lower quadrant pain 08/22/2015 016 Dyspepsia 08/22/2015 08/22/2015 TIA (transient ischemic attack) 08/16/2015 08/17/2015 Morbid obesity with BMI of 40.0-44.9, adult 08/2209/16/2017 documented as of this encounter (statuses as of 01/17/2022) [facility] of Past illness Narrative* Problem Noted Date Resolved Date Left lower quadrant pain 08/22/2015 016 Dyspepsia 08/22/2015 08/22/2015 TIA (transient ischemic attack) 08/16/2015 08/17/2015 Morbid obesity with BMI of 40.0-44.9, adult 08/2209/16/2017 documented as of this encounter (statuses as of 01/17/2022) [facility] of Past illness Narrative* Problem Noted Date Resolved Date Left lower quadrant pain 08/22/2015 016 Dyspepsia 08/22/2015 08/22/2015 TIA (transient ischemic attack) 08/16/2015 08/17/2015 Morbid obesity with BMI of 40.0-44.9, adult /05/201409/16/2017 documented as of this encounter (statuses as of 01/20/2022) [facility] of Past illness Narrative* Problem Noted Date Resolved Date Left lower quadrant pain 08/22/2015 016 Dyspepsia 08/22/2015 08/22/2015 TIA (transient ischemic attack) 08/16/2015 08/17/2015 Morbid obesity with BMI of 40.0-44.9, adult /05/201409/16/2017 documented as of this encounter (statuses as of 01/20/2022) [facility] of Past illness Narrative* Problem Noted Date Resolved Date Left lower quadrant pain 08/22/2015 016 Dyspepsia 08/22/2015 08/22/2015 TIA (transient ischemic attack) 08/16/2015 08/17/2015 Morbid obesity with BMI of 40.0-44.9, adult 08/2209/16/2017 documented as of this encounter (statuses as of 01/20/2022) [facility] of Past illness Narrative* Problem Noted Date Resolved Date Left lower quadrant pain 08/22/2015 016 Dyspepsia 08/22/2015 08/22/2015 TIA (transient ischemic attack) 08/16/2015 08/17/2015 Morbid obesity with BMI of 40.0-44.9, adult /05/201409/16/2017 documented as of this encounter (statuses as of 01/21/2022) [facility] History of Past illness Narrative* Problem Noted Date Diagnosed Date Resolved Date Left lower quadrant pain 08/22/201503/2015 Dyspepsia 08/22/2015 08/22/2015 TIA (transient ischemic attack) 08/16/2015 08/17/2015 Morbid obesity with BMI of 40.0-44.9, adult 09/12/2014 09/16/2017 documented as of this encounter (statuses as of 04/24/2023) [facility] History of Past illness Narrative* Problem Noted Date Diagnosed Date Resolved Date Left lower quadrant pain 08/22/201503/2015 Dyspepsia 08/22/2015 08/22/2015 TIA (transient ischemic attack) 08/16/2015 08/17/2015 Morbid obesity with BMI of 40.0-44.9, adult 09/12/2014 09/16/2017 documented as of this encounter (statuses as of 04/28/2023) [facility] History of Past illness Narrative* Problem Noted Date Diagnosed Date Resolved Date Left lower quadrant pain 08/22/201503/2015 Dyspepsia 08/22/2015 08/22/2015 TIA (transient ischemic attack) 08/16/2015 08/17/2015 Morbid obesity with BMI of 40.0-44.9, adult 09/12/2014 09/16/2017 documented as of this encounter (statuses as of 04/29/2023) [facility] History of Past illness Narrative* Problem Noted Date Diagnosed Date Resolved Date Left lower quadrant pain 08/22/201503/2015 Dyspepsia 08/22/2015 08/22/2015 TIA (transient ischemic attack) 08/16/2015 08/17/2015 Morbid obesity with BMI of 40.0-44.9, adult 09/12/2014 09/16/2017 documented as of this encounter (statuses as of 04/30/2023) [facility] History of Past illness Narrative* Problem Noted Date Diagnosed Date Resolved Date Left lower quadrant pain 08/22/201503/2015 Dyspepsia 08/22/2015 08/22/2015 TIA (transient ischemic attack) 08/16/2015 08/17/2015 Morbid obesity with BMI of 40.0-44.9, adult 09/12/2014 09/16/2017 documented as of this encounter (statuses as of 04/30/2023) [facility] History of Past illness Narrative* Problem Noted Date Diagnosed Date Resolved Date Left lower quadrant pain 08/22/201503/2015 Dyspepsia 08/22/2015 08/22/2015 TIA (transient ischemic attack) 08/16/2015 08/17/2015 Morbid obesity with BMI of 40.0-44.9, adult 09/12/2014 09/16/2017 documented as of this encounter (statuses as of 05/01/2023) [facility] History of Past illness Narrative* Problem Noted Date Diagnosed Date Resolved Date Left lower quadrant pain 08/22/201503/2015 Dyspepsia 08/22/2015 08/22/2015 TIA (transient ischemic attack) 08/16/2015 08/17/2015 Morbid obesity with BMI of 40.0-44.9, adult 09/12/2014 09/16/2017 documented as of this encounter (statuses as of 05/04/2023) [facility] History of Past illness Narrative* Problem Noted Date Diagnosed Date Resolved Date Left lower quadrant pain 08/22/201503/2015 Dyspepsia 08/22/2015 08/22/2015 TIA (transient ischemic attack) 08/16/2015 08/17/2015 Morbid obesity with BMI of 40.0-44.9, adult 09/12/2014 09/16/2017 documented as of this encounter (statuses as of 05/04/2023) [facility] of Past illness Narrative* Problem Noted Date Diagnosed Date Resolved Date Left lower quadrant pain 08/22/201503/2015 Dyspepsia 08/22/2015 08/22/2015 TIA (transient ischemic attack) 08/16/2015 08/17/2015 Morbid obesity with BMI of 40.0-44.9, adult 09/12/2014 09/16/2017 documented as of this encounter (statuses as of 05/05/2023) [address]01-2016 History of Past illness Narrative* Problem Noted Date Diagnosed Date Resolved Date Left lower quadrant pain 08/22/201503/2015 Dyspepsia 08/22/2015 08/22/2015 TIA (transient ischemic attack) 08/16/2015 08/17/2015 Morbid obesity with BMI of 40.0-44.9, adult 09/12/2014 09/16/2017 documented as of this encounter (statuses as of 05/05/2023) [facility]arr[facility]* Problem Noted Date Diagnosed Date Resolved Date Left lower quadrant pain 08/22/201503/2015 Dyspepsia 08/22/2015 08/22/2015 TIA (transient ischemic attack) 08/16/2015 08/17/2015 Morbid obesity with BMI of 40.0-44.9, adult 09/12/2014 09/16/2017 documented as of this encounter (statuses as of 05/05/2023) [address]-2016 History of Past illness Narrative* Problem Noted Date Diagnosed Date Resolved Date Left lower quadrant pain 08/22/201503/2015 Dyspepsia 08/22/2015 08/22/2015 TIA (transient ischemic attack) 08/16/2015 08/17/2015 Morbid obesity with BMI of 40.0-44.9, adult 09/12/2014 09/16/2017 documented as of this encounter (statuses as of 05/13/2023) [facility]arr[facility]* Problem Noted Date Diagnosed Date Resolved Date Left lower quadrant pain 08/22/201503/2015 Dyspepsia 08/22/2015 08/22/2015 TIA (transient ischemic attack) 08/16/2015 08/17/2015 Morbid obesity with BMI of 40.0-44.9, adult 09/12/2014 09/16/2017 documented as of this encounter (statuses as of 05/20/2023) [facility]arr[facility]* Problem Noted Date Diagnosed Date Resolved Date Left lower quadrant pain 08/22/201503/2015 Dyspepsia 08/22/2015 08/22/2015 TIA (transient ischemic attack) 08/16/2015 08/17/2015 Morbid obesity with BMI of 40.0-44.9, adult 09/12/2014 09/16/2017 documented as of this encounter (statuses as of 05/21/2023) [facility] Past [facility] Narrative* Problem Noted Date Diagnosed Date Resolved Date Left lower quadrant pain 08/22/201503/2015 Dyspepsia 08/22/2015 08/22/2015 TIA (transient ischemic attack) 08/16/2015 08/17/2015 Morbid obesity with BMI of 40.0-44.9, adult 09/12/2014 09/16/2017 documented as of this encounter (statuses as of 05/22/2023) [facility] Past [facility] Narrative* Problem Noted Date Diagnosed Date Resolved Date Left lower quadrant pain 08/22/201503/2015 Dyspepsia 08/22/2015 08/22/2015 TIA (transient ischemic attack) 08/16/2015 08/17/2015 Morbid obesity with BMI of 40.0-44.9, adult 09/12/2014 09/16/2017 documented as of this encounter (statuses as of 05/25/2023) [facility] Past [facility] Narrative* Problem Noted Date Diagnosed Date Resolved Date Left lower quadrant pain 08/22/201503/2015 Dyspepsia 08/22/2015 08/22/2015 TIA (transient ischemic attack) 08/16/2015 08/17/2015 Morbid obesity with BMI of 40.0-44.9, adult 09/12/2014 09/16/2017 documented as of this encounter (statuses as of 06/02/2023) [facility]arr[facility]* Problem Noted Date Diagnosed Date Resolved Date Left lower quadrant pain 08/22/201503/2015 Dyspepsia 08/22/2015 08/22/2015 TIA (transient ischemic attack) 08/16/2015 08/17/2015 Morbid obesity with BMI of 40.0-44.9, adult 09/12/2014 09/16/2017 documented as of this encounter (statuses as of 06/02/2023) [facility]* Problem Noted Date Diagnosed Date Resolved Date Left lower quadrant pain 08/22/201503/2015 Dyspepsia 08/22/2015 08/22/2015 TIA (transient ischemic attack) 08/16/2015 08/17/2015 Morbid obesity with BMI of 40.0-44.9, adult 09/12/2014 09/16/2017 documented as of this encounter (statuses as of 06/05/2023) [facility]* Problem Noted Date Diagnosed Date Resolved Date Left lower quadrant pain 08/22/201503/2015 Dyspepsia 08/22/2015 08/22/2015 TIA (transient ischemic attack) 08/16/2015 08/17/2015 Morbid obesity with BMI of 40.0-44.9, adult 09/12/2014 09/16/2017 documented as of this encounter (statuses as of 06/08/2023) [facility]arr[facility]* Problem Noted Date Diagnosed Date Resolved Date Left lower quadrant pain 08/22/201503/2015 Dyspepsia 08/22/2015 08/22/2015 TIA (transient ischemic attack) 08/16/2015 08/17/2015 Morbid obesity with BMI of 40.0-44.9, adult 09/12/2014 09/16/2017 documented as of this encounter (statuses as of 06/09/2023) [facility]arr[facility]* Problem Noted Date Diagnosed Date Resolved Date Left lower quadrant pain 08/22/201503/2015 Dyspepsia 08/22/2015 08/22/2015 TIA (transient ischemic attack) 08/16/2015 08/17/2015 Morbid obesity with BMI of 40.0-44.9, adult 09/12/2014 09/16/2017 documented as of this encounter (statuses as of 06/09/2023) [facility]* Problem Noted Date Diagnosed Date Resolved Date Left lower quadrant pain 08/22/201503/2015 Dyspepsia 08/22/2015 08/22/2015 TIA (transient ischemic attack) 08/16/2015 08/17/2015 Morbid obesity with BMI of 40.0-44.9, adult 09/12/2014 09/16/2017 documented as of this encounter (statuses as of 06/09/2023) [facility]* Problem Noted Date Diagnosed Date Resolved Date Left lower quadrant pain 08/22/201503/2015 Dyspepsia 08/22/2015 08/22/2015 TIA (transient ischemic attack) 08/16/2015 08/17/2015 Morbid obesity with BMI of 40.0-44.9, adult 09/12/2014 09/16/2017 documented as of this encounter (statuses as of 06/09/2023) [facility]* Problem Noted Date Diagnosed Date Resolved Date Left lower quadrant pain 08/22/201503/2015 Dyspepsia 08/22/2015 08/22/2015 TIA (transient ischemic attack) 08/16/2015 08/17/2015 Morbid obesity with BMI of 40.0-44.9, adult 09/12/2014 09/16/2017 documented as of this encounter (statuses as of 06/09/2023) [facility]* Problem Noted Date Diagnosed Date Resolved Date Left lower quadrant pain 08/22/201503/2015 Dyspepsia 08/22/2015 08/22/2015 TIA (transient ischemic attack) 08/16/2015 08/17/2015 Morbid obesity with BMI of 40.0-44.9, adult 09/12/2014 09/16/2017 documented as of this encounter (statuses as of 06/15/2023) [facility]* Problem Noted Date Diagnosed Date Resolved Date Left lower quadrant pain 08/22/201503/2015 Dyspepsia 08/22/2015 08/22/2015 TIA (transient ischemic attack) 08/16/2015 08/17/2015 Morbid obesity with BMI of 40.0-44.9, adult 09/12/2014 09/16/2017 documented as of this encounter (statuses as of 06/15/2023) [facility]* Problem Noted Date Diagnosed Date Resolved Date Left lower quadrant pain 08/22/201503/2015 Dyspepsia 08/22/2015 08/22/2015 TIA (transient ischemic attack) 08/16/2015 08/17/2015 Morbid obesity with BMI of 40.0-44.9, adult 09/12/2014 09/16/2017 documented as of this encounter (statuses as of 06/15/2023) [facility]* Problem Noted Date Diagnosed Date Resolved Date Left lower quadrant pain 08/22/201503/2015 Dyspepsia 08/22/2015 08/22/2015 TIA (transient ischemic attack) 08/16/2015 08/17/2015 Morbid obesity with BMI of 40.0-44.9, adult 09/12/2014 09/16/2017 documented as of this encounter (statuses as of 06/16/2023) [facility]* Problem Noted Date Diagnosed Date Resolved Date Left lower quadrant pain 08/22/201503/2015 Dyspepsia 08/22/2015 08/22/2015 TIA (transient ischemic attack) 08/16/2015 08/17/2015 Morbid obesity with BMI of 40.0-44.9, adult 09/12/2014 09/16/2017 documented as of this encounter (statuses as of 06/23/2023) [facility]* Problem Noted Date Diagnosed Date Resolved Date Left lower quadrant pain 08/22/201503/2015 Dyspepsia 08/22/2015 08/22/2015 TIA (transient ischemic attack) 08/16/2015 08/17/2015 Morbid obesity with BMI of 40.0-44.9, adult 09/12/2014 09/16/2017 documented as of this encounter (statuses as of 07/01/2023) [facility]* Problem Noted Date Diagnosed Date Resolved Date Left lower quadrant pain 08/22/201503/2015 Dyspepsia 08/22/2015 08/22/2015 TIA (transient ischemic attack) 08/16/2015 08/17/2015 Morbid obesity with BMI of 40.0-44.9, adult 09/12/2014 09/16/2017 documented as of this encounter (statuses as of 07/01/2023) [facility] Future Appointments [facility] Evaluation note* Diagnosis WILTON on CPAP Obstructive sleep apnea (adult) (pediatric) Type 2 diabetes mellitus with other specified complication, unspecified whether intermodal dispatcher insulin use (HCC) Morbid obesity (HCC) Morbid obesity Daytime sleepiness Morbid obesity with BMI of 40.0-44.9, adult (HCC) Back pain, unspecified back location, unspecified back pain laterality, unspecified chronicity Vitamin D insufficiency Unspecified vitamin D deficiency documented in this encounter [facility] Work Phone: Evaluation note* Diagnosis Type 2 diabetes mellitus without complication, without long-term current use of insulin (HCC)- Primary Chronic right shoulder pain Pain in joint, shoulder region Neuropathy Mononeuritis of unspecified site Vitamin D deficiency Unspecified vitamin D deficiency Hypomagnesemia Disorders of magnesium metabolism Mixed hyperlipidemia Obesity (BMI 30-39.9) Obesity, unspecified Encounter for long-term current use of [facility] Neuropathy Mononeuritis of unspecified site [facility] Diagnosis Chronic right shoulder pain Pain in joint, shoulder region Neuropathy Mononeuritis of unspecified site [facility] Diagnosis Anemia, unspecified type Vitamin D deficiency Unspecified vitamin D deficiency Gastroesophageal reflux disease without esophagitis Esophageal reflux LUQ abdominal pain Abdominal pain, left upper quadrant Epigastric pain Abdominal pain, epigastric [facility]* Diagnosis Anemia, unspecified type Vitamin D deficiency Unspecified vitamin D deficiency Gastroesophageal reflux disease without esophagitis Esophageal reflux LUQ abdominal pain Abdominal pain, left upper quadrant Epigastric pain Abdominal pain, epigastric [facility]* Diagnosis Chronic right shoulder pain Pain in joint, shoulder region Neuropathy Mononeuritis of unspecified site documented in this encounter [facility] note* Diagnosis Neuropathy Mononeuritis of unspecified site [facility]* Diagnosis Encounter for gynecological examination (general) (routine) without abnormal findings Encounter for screening mammogram for breast cancer [facility]* Diagnosis Renal calculi Calculus of kidney documented in this encounter [facility] note* Diagnosis Right flank pain Abdominal pain, unspecified site [facility]* Diagnosis Pain Generalized pain [facility]* Diagnosis Mild episode of recurrent major depressive disorder (HCC) Fibromyalgia Mylagia and myositis, unspecified Chronic right shoulder pain Pain in joint, shoulder region documented in this encounter [facility] note* Diagnosis Vitamin D deficiency Unspecified vitamin D deficiency [facility]* Diagnosis Ulcer of foot, right, limited to breakdown of skin (HCC)- Primary DM (diabetes mellitus), type 2 with neurological complications (HCC) Type II or unspecified type diabetes mellitus with neurological manifestations, not stated as uncontrolled [facility]* Diagnosis Lung nodule- Primary Solitary pulmonary nodule Encounter for immunization Need for other specified prophylactic vaccination against single bacterial disease Restless leg syndrome Restless legs syndrome (RLS) Obesity (BMI 30-39.9) Obesity, unspecified 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 Obesity, Class II, BMI 35-39.9 Obesity, unspecified WILTON on CPAP Obstructive sleep apnea (adult) (pediatric) documented in this encounter [facility] note* Diagnosis Ulcer of foot, right, limited to breakdown of skin (HCC)- Primary [facility]* Diagnosis Vitamin D deficiency Unspecified vitamin D deficiency [facility]* Diagnosis Hepatic steatosis Other chronic nonalcoholic liver disease Type 2 diabetes mellitus without complication, without long-term current use of insulin (HCC) Mild episode of recurrent major depressive disorder (HCC) Fibromyalgia Mylagia and myositis, unspecified Chronic right shoulder pain Pain in joint, shoulder region [facility] Diagnosis Type 2 diabetes mellitus without complication, without long-term current use of insulin (HCC) [facility] Diagnosis Acute pain of left shoulder- Primary Pain of left clavicle [facility]* Diagnosis Neuropathy Mononeuritis of unspecified site [facility]* Diagnosis Vitamin D deficiency Unspecified vitamin D deficiency [facility]* Diagnosis Hepatic steatosis Other chronic nonalcoholic liver disease New onset type 2 diabetes mellitus (HCC) [facility]* Diagnosis Neuropathy Mononeuritis of unspecified site Vitamin D deficiency Unspecified vitamin D deficiency Hepatic steatosis Other chronic nonalcoholic liver disease New onset type 2 diabetes mellitus (HCC) [facility]* Diagnosis Acute pain of left shoulder Pain of left clavicle Chronic right shoulder pain Pain in joint, shoulder region [facility]* Diagnosis Chronic left shoulder pain- Primary Pain in joint, shoulder region [facility]* Diagnosis Chronic right shoulder pain Pain in joint, shoulder region [facility] Diagnosis Breakthrough bleeding associated with intrauterine device (IUD)- Primary Pelvic pain in female Unspecified symptom associated with female genital organs Class 2 severe obesity with serious comorbidity and body mass index (BMI) of 39.0 to 39.9 in adult, unspecified obesity type (HCC) Encounter for screening mammogram for breast cancer [facility]* Diagnosis Acute pain of left shoulder Pain of left clavicle Chronic right shoulder pain Pain in joint, shoulder region [facility]* Diagnosis Neuropathy- Primary Mononeuritis of unspecified site Vitamin D deficiency Unspecified vitamin D deficiency [facility]* Diagnosis Acute pain of left shoulder Pain of left clavicle [facility]* Diagnosis Neuropathy Mononeuritis of unspecified site [facility] Diagnosis DM (diabetes mellitus), 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 Type II or unspecified type diabetes mellitus with neurological manifestations, not stated as uncontrolled Ulcer of foot, right, limited to breakdown of skin (HCC) Obesity (BMI 30-39.9) Obesity, unspecified [facility] Diagnosis Change in bowel habits- Primary Other symptoms involving digestive system Family history of colon cancer in father Screening for colon cancer Special screening for malignant neoplasms, colon Bloating Flatulence, eructation, and gas pain [facility]* Diagnosis Chronic left shoulder pain- Primary Pain in joint, shoulder region [facility] Diagnosis Chronic left shoulder pain- Primary Pain in joint, shoulder region [facility] Diagnosis Onset Date Resolution Status Callus of toe acute Foot deformity acute Neuropathy of both feet acut e Right otitis media acute [facility] Work Phone: Evaluation note* Diagnosis Gastroesophageal reflux disease without esophagitis- Primary Esophageal reflux Family history of colon cancer in father Change in bowel habits Other symptoms involving digestive system Bloating Flatulence, eructation, and gas pain Screening for colon cancer Special screening for malignant neoplasms, colon [facility]* Diagnosis Chronic right shoulder pain Pain in joint, shoulder region [facility]* Diagnosis DM (diabetes mellitus), 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 Type II or unspecified type diabetes mellitus with neurological manifestations, not stated as uncontrolled Neuropathy Mononeuritis of unspecified site Obesity (BMI 30-39.9) Obesity, unspecified Depression, recurrent (HCC) Major depressive disorder, recurrent episode, unspecified Ulcer of foot, unspecified laterality, unspecified ulcer stage (HCC) [facility]* Diagnosis Family history of colon cancer in father- Primary Screening for colon cancer Special screening for malignant neoplasms, colon Change in bowel habits Other symptoms involving digestive system Bloating Flatulence, eructation, and gas pain [facility]* Diagnosis Hepatic steatosis Other chronic nonalcoholic liver disease New onset type 2 diabetes mellitus (HCC) Vitamin D deficiency Unspecified vitamin D deficiency [facility] Diagnosis Suprapubic pain- Primary Abdominal pain, other specified site DM (diabetes mellitus), type 2 with neurological complications (HCC) Type II or unspecified type diabetes mellitus with neurological manifestations, not stated as uncontrolled Neuropathy Mononeuritis of unspecified site Obesity (BMI 30-39.9) Obesity, unspecified Depression, recurrent (HCC) Major depressive disorder, recurrent episode, unspecified Benign paroxysmal positional vertigo, unspecified laterality 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 Chronic left shoulder pain Pain in joint, shoulder region [facility]* Diagnosis Encounter for IUD removal- Primary Encounter for removal of intrauterine contraceptive device Malpositioned intrauterine device (IUD), initial encounter [facility]* Diagnosis Acute left-sided low back pain with left-sided sciatica- Primary Sacroiliac joint pain Disorders of sacrum Muscle spasm of back Other symptoms referable to back Other gastritis without hemorrhage, unspecified chronicity Esophagitis Esophagitis, unspecified DM (diabetes mellitus), type 2 with neurological complications (HCC) Type II or unspecified type diabetes mellitus with neurological manifestations, not stated as uncontrolled [facility]* Diagnosis Charcot ankle, right- Primary DM (diabetes mellitus), type 2 with neurological complications (HCC) Type II or unspecified type diabetes mellitus with neurological manifestations, not stated as uncontrolled Callus Corns and callosities [facility]* Diagnosis Hepatic steatosis Other chronic nonalcoholic liver disease New onset type 2 diabetes mellitus (HCC) [facility]* Diagnosis Neuropathy Mononeuritis of unspecified site [facility]* Diagnosis DM (diabetes mellitus), type 2 with neurological complications (HCC) Type II or unspecified type diabetes mellitus with neurological manifestations, not stated as uncontrolled Obesity (BMI 30-39.9) Obesity, unspecified Neuropathy Mononeuritis of unspecified site [facility]* Diagnosis Diabetic ulcer of heel associated with diabetes mellitus due to underlying condition, with fat layer exposed, unspecified laterality (HCC)- Primary DM (diabetes mellitus), type 2 with neurological complications (HCC) Type II or unspecified type diabetes mellitus with neurological manifestations, not stated as uncontrolled Charcot ankle, right [facility]* Diagnosis Need for vaccination- Primary Need for prophylactic vaccination and inoculation against unspecified single disease Need for influenza vaccination Need for prophylactic vaccination and inoculation against influenza [facility]* Diagnosis Encounter for IUD insertion Encounter for insertion of intrauterine contraceptive device [facility]* Diagnosis Neuropathy Mononeuritis of unspecified site [facility]* Diagnosis DM (diabetes mellitus), type 2 with neurological complications (HCC) Type II or unspecified type diabetes mellitus with neurological manifestations, not stated as uncontrolled Neuropathy Mononeuritis of unspecified site [facility]* Diagnosis Diabetic ulcer of heel associated with diabetes mellitus due to underlying condition, with fat layer exposed, unspecified laterality (HCC)- Primary DM (diabetes mellitus), type 2 with neurological complications (HCC) Type II or unspecified type diabetes mellitus with neurological manifestations, not stated as uncontrolled Charcot ankle, right Callus Corns and callosities [facility]* Diagnosis Encounter for screening mammogram for breast cancer [facility]* Diagnosis Suprapubic pain Abdominal pain, other specified site [facility]* Diagnosis Diabetic ulcer of heel associated with diabetes mellitus due to underlying condition, with fat layer exposed, unspecified laterality (HCC) Charcot ankle, right [facility]* Diagnosis Acute bilateral low back pain without sciatica- Primary Chronic right shoulder pain Pain in joint, shoulder region Neuropathy Mononeuritis of unspecified site Sleep disorder Sleep disturbance, unspecified Depression, recurrent (HCC) Major depressive disorder, recurrent episode, unspecified Obesity (BMI 30-39.9) Obesity, unspecified [facility]* Diagnosis DM (diabetes mellitus), 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 Type II or unspecified type diabetes mellitus with neurological manifestations, not stated as uncontrolled Hammertoe of left foot Hammertoe of right foot Ulcer of toe of left foot, limited to breakdown of skin (HCC) Blister of toe of right foot, initial encounter documented in this encounter [facility] note* Diagnosis Onset Date Resolution Status Contusion of left shoulder a cute Left shoulder strain acute [facility] Work Phone: [facility] note* Diagnosis Claustrophobia- Primary Other isolated or specific phobias documented in this encounter [facility] note* Diagnosis DM (diabetes mellitus), type 2 with neurological complications (HCC) Type II or unspecified type diabetes mellitus with neurological manifestations, not stated as uncontrolled Obesity (BMI 30-39.9) Obesity, unspecified documented in this encounter [facility] note* Diagnosis Chronic right shoulder pain Pain in joint, shoulder region documented in this encounter [facility] note* Diagnosis Paresthesia- Primary Disturbance of skin sensation Weakness Other malaise and fatigue documented in this encounter [facility] note* Diagnosis Ulcer of toe of left foot, limited to breakdown of skin (HCC)- Primary Hammertoe of left foot DM (diabetes mellitus), type 2 with neurological complications (HCC) Type II or unspecified type diabetes mellitus with neurological manifestations, not stated as uncontrolled [facility]* Diagnosis Neuropathy Mononeuritis of unspecified site documented in this encounter [facility] note* Diagnosis Paresthesia- Primary Disturbance of skin sensation Weakness Other malaise and fatigue Osteoarthritis of spine with radiculopathy, cervical region documented in this encounter [facility] note* Diagnosis Hammertoe of left foot- Primary DM (diabetes mellitus), type 2 with neurological complications (HCC) Type II or unspecified type diabetes mellitus with neurological manifestations, not stated as uncontrolled Callus Corns and callosities documented in this encounter [facility] note* Diagnosis Cervical myofascial pain syndrome- Primary Mylagia and myositis, unspecified Paresthesia Disturbance of skin sensation Weakness Other malaise and fatigue Osteoarthritis of spine with radiculopathy, cervical region DDD (degenerative disc disease), cervical Degeneration of cervical intervertebral disc documented in this encounter [facility] note* Diagnosis Depression, recurrent (HCC) Major depressive disorder, recurrent episode, unspecified documented in this encounter [facility] note* Diagnosis Obesity (BMI 30-39.9) Obesity, unspecified Depression, recurrent (HCC) Major depressive disorder, recurrent episode, unspecified Need for vaccination Need for prophylactic vaccination and inoculation against unspecified single disease documented in this encounter [facility] note* Diagnosis Cervical myofascial pain syndrome Mylagia and myositis, unspecified DDD (degenerative disc disease), cervical Degeneration of cervical intervertebral disc [facility] Diagnosis Trigger middle finger of right hand- Primary Trigger finger (acquired) Trigger finger of right hand, unspecified finger Trigger ring finger of right hand Trigger finger (acquired) [facility]* Diagnosis DM (diabetes mellitus), type 2 with neurological complications (HCC) Type II or unspecified type diabetes mellitus with neurological manifestations, not stated as uncontrolled Obesity (BMI 30-39.9) Obesity, unspecified [facility]* Diagnosis Trigger finger of right hand, unspecified finger- Primary Trigger middle finger of right hand Trigger finger (acquired) [facility]* Diagnosis Need for vaccination- Primary Need for prophylactic vaccination and inoculation against unspecified single disease [facility]* Diagnosis Acquired trigger finger of right middle finger- Primary Acquired trigger finger of right ring finger Acquired trigger finger of right middle finger Acquired trigger finger of right ring finger [facility]* Diagnosis DDD (degenerative disc disease), cervical- Primary Degeneration of cervical intervertebral disc Cervical myofascial pain syndrome Mylagia and myositis, unspecified Acquired trigger finger of right middle finger Acquired trigger finger of right ring finger [facility]* Diagnosis Medicare annual wellness visit, subsequent- Primary Routine general medical examination at a health care facility Fall, initial encounter Type 2 diabetes mellitus without complication, without long-term current use of insulin (HCC) Encounter for immunization Need for other specified prophylactic vaccination against single bacterial disease Encounter for screening mammogram for breast cancer Aneurysm (HCC) Aneurysm of unspecified site Acquired trigger finger of right middle finger Acquired trigger finger of right ring finger [facility]* Diagnosis DDD (degenerative disc disease), cervical- Primary Degeneration of cervical intervertebral disc Cervical myofascial pain syndrome Mylagia and myositis, unspecified [facility]* Diagnosis Hammertoe of left foot- Primary DM (diabetes mellitus), type 2 with neurological complications (HCC) Type II or unspecified type diabetes mellitus with neurological manifestations, not stated as uncontrolled Ulcer of toe of left foot, limited to breakdown of skin (HCC) Callus Corns and callosities [facility]* Diagnosis Encounter for screening mammogram for breast cancer [facility]* Diagnosis Acquired trigger finger of right middle finger- Primary Acquired trigger finger of right ring finger [facility]* Diagnosis DDD (degenerative disc disease), cervical- Primary Degeneration of cervical intervertebral disc Cervical myofascial pain syndrome Mylagia and myositis, unspecified [facility]* Diagnosis Hammertoe of right foot Charcot ankle, right [facility]* Diagnosis DM (diabetes mellitus), 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 Type II or unspecified type diabetes mellitus with neurological manifestations, not stated as uncontrolled Hammertoe of right foot Callus Corns and callosities Charcot ankle, right Hammertoe of right foot Charcot ankle, right [facility]* Diagnosis Type 2 diabetes mellitus without complication, without long-term current use of insulin (HCC)- Primary [facility] Diagnosis Type 2 diabetes mellitus without complication, without long-term current use of insulin (HCC)- Primary Insomnia, unspecified type Obesity (BMI 30-39.9) Obesity, unspecified Neuropathy Mononeuritis of unspecified site [facility] Diagnosis DDD (degenerative disc disease), cervical- Primary Degeneration of cervical intervertebral disc Cervical myofascial pain syndrome Mylagia and myositis, unspecified [facility]* Diagnosis Lesion of right ulnar nerve- Primary Lesion of ulnar nerve Bilateral hand numbness Disturbance of skin sensation Acquired trigger finger of right middle finger Acquired trigger finger of right ring finger [facility]* Diagnosis Depression, recurrent ([facility]) Major depressive disorder, recurrent episode, unspecified [facility] Diagnosis Acute bilateral low back pain without sciatica [facility] Neuropathy Mononeuritis of unspecified site [facility]* Diagnosis DDD (degenerative disc disease), cervical- Primary Degeneration of cervical intervertebral disc Cervical myofascial pain syndrome Mylagia and myositis, unspecified [facility]* Diagnosis Type 2 diabetes mellitus without complication, without long-term current use of insulin (HCC) [facility]* Diagnosis DDD (degenerative disc disease), cervical- Primary Degeneration of cervical intervertebral disc Cervical myofascial pain syndrome Mylagia and myositis, unspecified [facility]* Diagnosis Lesion of right ulnar nerve Lesion of ulnar nerve [facility]* Diagnosis DDD (degenerative disc disease), cervical- Primary Degeneration of cervical intervertebral disc Cervical myofascial pain syndrome Mylagia and myositis, unspecified [facility]* Diagnosis Type 2 diabetes mellitus without complication, without long-term current use of insulin (HCC) [facility]* Diagnosis Lumbar pain- Primary Lumbago Skin sensation disturbance Disturbance of skin sensation WILTON on CPAP Obstructive sleep apnea (adult) (pediatric) [facility]* Diagnosis Lesion of ulnar nerve, right upper limb- Primary Bilateral hand numbness Disturbance of skin sensation Hereditary and idiopathic neuropathy, unspecified Paresthesia of skin Disturbance of skin sensation [facility]* Diagnosis Acute bilateral low back pain without sciatica [facility]* Diagnosis Ulnar neuropathy at elbow of right upper extremity Chronic pain of right knee Ulnar neuropathy of right upper extremity Lesion of ulnar nerve [facility] Diagnosis Ulnar neuropathy of right upper extremity- Primary Lesion of ulnar nerve Ulnar neuropathy of right upper extremity Lesion of ulnar nerve [facility]* Diagnosis Chronic pain of right knee Ulnar neuropathy of right upper extremity Lesion of ulnar nerve [facility] Diagnosis Depression Depressive disorder, not elsewhere classified Fibromyalgia Mylagia and myositis, unspecified Vitamin D deficiency Unspecified vitamin D deficiency Elevated AST (SGOT) Nonspecific elevation of levels of transaminase or lactic acid dehydrogenase (LDH) Screening for malignant neoplasm of breast Breast screening, unspecified Need for immunization against zwvpqdbtew-sdauccf-buuosrueg, combined (DTP) Need for prophylactic vaccination with combined hzhppsfbvf-eejpyue-nbbkmayhm (DTP) vaccine Arthritis Arthropathy, unspecified, site unspecified Mixed hyperlipidemia Obesity Obesity, unspecified Spinal stenosis of cervical region- Primary Spinal stenosis in cervical region Osteoarthritis of spine with radiculopathy, cervical region DDD (degenerative disc disease), cervical Degeneration of cervical intervertebral disc Cervical myofascial pain syndrome Mylagia and myositis, unspecified Paresthesia Disturbance of skin sensation Ulnar neuropathy of right upper extremity Lesion of ulnar nerve [facility] Diagnosis Depression Depressive disorder, not elsewhere classified Fibromyalgia Mylagia and myositis, unspecified Vitamin D deficiency Unspecified vitamin D deficiency Elevated AST (SGOT) Nonspecific elevation of levels of transaminase or lactic acid dehydrogenase (LDH) Screening for malignant neoplasm of breast Breast screening, unspecified Need for immunization against cnsheabyeq-gifqnux-vopznjhsp, combined (DTP) Need for prophylactic vaccination with combined uiiludbdgx-mzatkcp-baaxucrvm (DTP) vaccine Arthritis Arthropathy, unspecified, site unspecified Mixed hyperlipidemia Obesity Obesity, unspecified Preoperative examination- Primary Preoperative examination, unspecified Ulnar neuropathy of right upper extremity Lesion of ulnar nerve Type 2 diabetes mellitus without complication, without long-term current use of insulin (HCC) Mixed hyperlipidemia WILTON on CPAP Obstructive sleep apnea (adult) (pediatric) Restless leg syndrome Restless legs syndrome (RLS) Neuropathy Mononeuritis of unspecified site Benign paroxysmal positional vertigo, unspecified laterality Hx-TIA (transient ischemic attack) Transient ischemic attack (TIA), and 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 residual deficits Aneurysm (HCC) Aneurysm of unspecified site Gastroesophageal reflux disease without esophagitis Esophageal reflux Irritable bowel syndrome, unspecified type 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 Fibromyalgia Mylagia and myositis, unspecified Insomnia, unspecified type Anxiety and depression Dysthymic disorder Obesity (BMI 30-39.9) Obesity, unspecified Ulnar neuropathy of right upper extremity Lesion of ulnar nerve * Assessment & Plan Note - Taylor Quintanilla PA-C - 11/12/2023 2:21 PM EDT Associated Problem(s): Irritable bowel syndrome Assessment: controlled with diet * Assessment & Plan Note - Taylor Quintanilla PA-C - 11/12/2023 2:20 PM EDT Associated Problem(s): Benign paroxysmal positional vertigo Assessment: no recent episode * Assessment & Plan Note - Taylor Quintanilla PA-C - 11/12/2023 2:09 PM EDT Associated Problem(s): Restless leg syndrome Assessment: managed with Gabapentin * Assessment & Plan Note - Taylor Quintanilla PA-C - 11/12/2023 2:07 PM EDT Associated Problem(s): Aneurysm (HCC) Assessment: 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 Palencia initially- currently followed by [employer] for aneurysm * Assessment & Plan Note - Taylor Quintanilla PA-C - 11/12/2023 1:00 PM EDT Associated Problem(s): Fibromyalgia Assessment: no longer taking Cymbalta * Assessment & Plan Note - Taylor Quintanilla PA-C - 11/12/2023 12:54 PM EDT Associated Problem(s): Mixed hyperlipidemia Assessment: not on medication * Assessment & Plan Note - Taylor Quintanilla PA-C - 11/12/2023 12:53 PM EDT Associated Problem(s): WILTON on CPAP Assessment: patient is not using CPAP * Assessment & Plan Note - Taylor Quintanilla PA-C - 11/12/2023 12:52 PM EDT Associated Problem(s): Obesity (BMI 30-39.9) Assessment: Body mass index is 34.44 kg/m . * Assessment & Plan Note - Taylor Quintanilla PA-C - 11/12/2023 12:52 PM EDT Associated Problem(s): Anxiety and depression Assessment: managed with Zoloft * Assessment & Plan Note - Taylor Quintanilla PA-C - 11/12/2023 12:50 PM EDT Associated Problem(s): Insomnia Assessment: managed with Trazodone prn * Assessment & Plan Note - Taylor Quintanilla PA-C - 11/12/2023 12:43 PM EDT Associated Problem(s): Type 2 diabetes mellitus without complication, without long-term current useof insulin (HCC) Assessment: managed with Ozempic Hemoglobin A1C (%) Date Value 07/02/2023 5.8 02/03/2023 5.7 07/15/2022 6.2 * Assessment & Plan Note - Taylor Quintanilla PA-C - 11/12/2023 12:42 PM EDT Associated Problem(s): Esophageal reflux Assessment: managed with Omeprazole * Assessment & Plan Note - Taylor Quintanilla PA-C - 11/12/2023 12:41 PM EDT Associated Problem(s): 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 Assessment: managed with Meloxicam, Tizanidine * Assessment & Plan Note - Taylor Quintanilla PA-C - 11/12/2023 12:40 PM EDT Associated Problem(s): Neuropathy Assessment: managed with Gabapentin [facility] Diagnosis Depression Depressive disorder, not elsewhere classified Fibromyalgia Mylagia and myositis, unspecified Vitamin D deficiency Unspecified vitamin D deficiency Elevated AST (SGOT) Nonspecific elevation of levels of transaminase or lactic acid dehydrogenase (LDH) Screening for malignant neoplasm of breast Breast screening, unspecified Need for immunization against nkwrmilhdm-vpnubwk-fuseaeoft, combined (DTP) Need for prophylactic vaccination with combined myrdkravkk-jlpigfi-gzbabgixk (DTP) vaccine Arthritis Arthropathy, unspecified, site unspecified Mixed hyperlipidemia Obesity Obesity, unspecified Preoperative examination- Primary Preoperative examination, unspecified Ulnar neuropathy of right upper extremity Lesion of ulnar nerve Type 2 diabetes mellitus without complication, without long-term current use of insulin (HCC) Mixed hyperlipidemia WILTON on CPAP Obstructive sleep apnea (adult) (pediatric) Restless leg syndrome Restless legs syndrome (RLS) Neuropathy Mononeuritis of unspecified site Benign paroxysmal positional vertigo, unspecified laterality Hx-TIA (transient ischemic attack) Transient ischemic attack (TIA), and 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 residual deficits Aneurysm (HCC) Aneurysm of unspecified site Gastroesophageal reflux disease without esophagitis Esophageal reflux Irritable bowel syndrome, unspecified type 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 Fibromyalgia Mylagia and myositis, unspecified Insomnia, unspecified type Anxiety and depression Dysthymic disorder Obesity (BMI 30-39.9) Obesity, unspecified Depression, recurrent (HCC) Major depressive disorder, recurrent episode, unspecified Acute bilateral low back pain without sciatica Ulnar neuropathy of right upper extremity Lesion of ulnar nerve documented in this encounter [facility]* Diagnosis Depression Depressive disorder, not elsewhere classified Fibromyalgia Mylagia and myositis, unspecified Vitamin D deficiency Unspecified vitamin D deficiency Elevated AST (SGOT) Nonspecific elevation of levels of transaminase or lactic acid dehydrogenase (LDH) Screening for malignant neoplasm of breast Breast screening, unspecified Need for immunization against xzswbhrdrh-lzxfsxv-xduqyafqm, combined (DTP) Need for prophylactic vaccination with combined jvupqtginr-fddkqif-pwgqbgtnd (DTP) vaccine Arthritis Arthropathy, unspecified, site unspecified Mixed hyperlipidemia Obesity Obesity, unspecified Preoperative examination- Primary Preoperative examination, unspecified Ulnar neuropathy of right upper extremity Lesion of ulnar nerve Type 2 diabetes mellitus without complication, without long-term current use of insulin ([facility]) Mixed hyperlipidemia WILTON on CPAP Obstructive sleep apnea (adult) (pediatric) Restless leg syndrome Restless legs syndrome (RLS) Neuropathy Mononeuritis of unspecified site Benign paroxysmal positional vertigo, unspecified laterality Hx-TIA (transient ischemic attack) Transient ischemic attack (TIA), and 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 residual deficits Aneurysm (HCC) Aneurysm of unspecified site Gastroesophageal reflux disease without esophagitis Esophageal reflux Irritable bowel syndrome, unspecified type 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 Fibromyalgia Mylagia and myositis, unspecified Insomnia, unspecified type Anxiety and depression Dysthymic disorder Obesity (BMI 30-39.9) Obesity, unspecified Type 2 diabetes mellitus without complication, without long-term current use of insulin (HCC) Lumbar pain Lumbago Skin sensation disturbance Disturbance of skin sensation Ulnar neuropathy of right upper extremity Lesion of ulnar nerve [facility]* Diagnosis Depression Depressive disorder, not elsewhere classified Fibromyalgia Mylagia and myositis, unspecified Vitamin D deficiency Unspecified vitamin D deficiency Elevated AST (SGOT) Nonspecific elevation of levels of transaminase or lactic acid dehydrogenase (LDH) Screening for malignant neoplasm of breast Breast screening, unspecified Need for immunization against khjriivluh-qrruvcu-lutphkgkl, combined (DTP) Need for prophylactic vaccination with combined xfuecvlfzm-tzsjxha-kzezznina (DTP) vaccine Arthritis Arthropathy, unspecified, site unspecified Mixed hyperlipidemia Obesity Obesity, unspecified Preoperative examination- Primary Preoperative examination, unspecified Ulnar neuropathy of right upper extremity Lesion of ulnar nerve Type 2 diabetes mellitus without complication, without long-term current use of insulin (HCC) Mixed hyperlipidemia WILTON on CPAP Obstructive sleep apnea (adult) (pediatric) Restless leg syndrome Restless legs syndrome (RLS) Neuropathy Mononeuritis of unspecified site Benign paroxysmal positional vertigo, unspecified laterality Hx-TIA (transient ischemic attack) Transient ischemic attack (TIA), and 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 residual deficits Aneurysm (HCC) Aneurysm of unspecified site Gastroesophageal reflux disease without esophagitis Esophageal reflux Irritable bowel syndrome, unspecified type 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 Fibromyalgia Mylagia and myositis, unspecified Insomnia, unspecified type Anxiety and depression Dysthymic disorder Obesity (BMI 30-39.9) Obesity, unspecified Neuropathy Mononeuritis of unspecified site Ulnar neuropathy of right upper extremity Lesion of ulnar nerve [facility] Diagnosis Depression Depressive disorder, not elsewhere classified Fibromyalgia Mylagia and myositis, unspecified Vitamin D deficiency Unspecified vitamin D deficiency Elevated AST (SGOT) Nonspecific elevation of levels of transaminase or lactic acid dehydrogenase (LDH) Screening for malignant neoplasm of breast Breast screening, unspecified Need for immunization against ubnsgzdlav-gzesvnt-nyvckjqvj, combined (DTP) Need for prophylactic vaccination with combined grzscxejbp-kxxjnca-qpxazuffl (DTP) vaccine Arthritis Arthropathy, unspecified, site unspecified Mixed hyperlipidemia Obesity Obesity, unspecified Preoperative examination- Primary Preoperative examination, unspecified Ulnar neuropathy of right upper extremity Lesion of ulnar nerve Type 2 diabetes mellitus without complication, without long-term current use of insulin (HCC) Mixed hyperlipidemia WILTON on CPAP Obstructive sleep apnea (adult) (pediatric) Restless leg syndrome Restless legs syndrome (RLS) Neuropathy Mononeuritis of unspecified site Benign paroxysmal positional vertigo, unspecified laterality Hx-TIA (transient ischemic attack) Transient ischemic attack (TIA), and 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 residual deficits Aneurysm (HCC) Aneurysm of unspecified site Gastroesophageal reflux disease without esophagitis Esophageal reflux Irritable bowel syndrome, unspecified type 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 Fibromyalgia Mylagia and myositis, unspecified Insomnia, unspecified type Anxiety and depression Dysthymic disorder Obesity (BMI 30-39.9) Obesity, unspecified Type 2 diabetes mellitus without complication, without long-term current use of insulin (HCC)- Primary Fatigue, unspecified type Neuropathy Mononeuritis of unspecified site Chronic bilateral low back pain without sciatica Vitamin D deficiency Unspecified vitamin D deficiency Ulnar neuropathy of right upper extremity Lesion of ulnar nerve [facility]* Diagnosis Depression Depressive disorder, not elsewhere classified Fibromyalgia Mylagia and myositis, unspecified Vitamin D deficiency Unspecified vitamin D deficiency Elevated AST (SGOT) Nonspecific elevation of levels of transaminase or lactic acid dehydrogenase (LDH) Screening for malignant neoplasm of breast Breast screening, unspecified Need for immunization against jgwggpwnuw-nplalhx-xvocqpjxt, combined (DTP) Need for prophylactic vaccination with combined prncuoeuwq-bqedubj-iwvoiawpu (DTP) vaccine Arthritis Arthropathy, unspecified, site unspecified Mixed hyperlipidemia Obesity Obesity, unspecified Preoperative examination- Primary Preoperative examination, unspecified Ulnar neuropathy of right upper extremity Lesion of ulnar nerve Type 2 diabetes mellitus without complication, without long-term current use of insulin (HCC) Mixed hyperlipidemia WILTON on CPAP Obstructive sleep apnea (adult) (pediatric) Restless leg syndrome Restless legs syndrome (RLS) Neuropathy Mononeuritis of unspecified site Benign paroxysmal positional vertigo, unspecified laterality Hx-TIA (transient ischemic attack) Transient ischemic attack (TIA), and 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 residual deficits Aneurysm (HCC) Aneurysm of unspecified site Gastroesophageal reflux disease without esophagitis Esophageal reflux Irritable bowel syndrome, unspecified type 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 Fibromyalgia Mylagia and myositis, unspecified Insomnia, unspecified type Anxiety and depression Dysthymic disorder Obesity (BMI 30-39.9) Obesity, unspecified Burning with urination- Primary Dysuria Vaginal odor Unspecified symptom associated with female genital organs Ulnar neuropathy of right upper extremity Lesion of ulnar nerve [facility]* Diagnosis Depression Depressive disorder, not elsewhere classified Fibromyalgia Mylagia and myositis, unspecified Vitamin D deficiency Unspecified vitamin D deficiency Elevated AST (SGOT) Nonspecific elevation of levels of transaminase or lactic acid dehydrogenase (LDH) Screening for malignant neoplasm of breast Breast screening, unspecified Need for immunization against qlswqbztiz-ntesvln-ymxgbalhx, combined (DTP) Need for prophylactic vaccination with combined hljbrnyncj-ojnvmtc-hslnncerc (DTP) vaccine Arthritis Arthropathy, unspecified, site unspecified Mixed hyperlipidemia Obesity Obesity, unspecified Preoperative examination- Primary Preoperative examination, unspecified Ulnar neuropathy of right upper extremity Lesion of ulnar nerve Type 2 diabetes mellitus without complication, without long-term current use of insulin (HCC) Mixed hyperlipidemia WILTON on CPAP Obstructive sleep apnea (adult) (pediatric) Restless leg syndrome Restless legs syndrome (RLS) Neuropathy Mononeuritis of unspecified site Benign paroxysmal positional vertigo, unspecified laterality Hx-TIA (transient ischemic attack) Transient ischemic attack (TIA), and 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 residual deficits Aneurysm (HCC) Aneurysm of unspecified site Gastroesophageal reflux disease without esophagitis Esophageal reflux Irritable bowel syndrome, unspecified type 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 Fibromyalgia Mylagia and myositis, unspecified Insomnia, unspecified type Anxiety and depression Dysthymic disorder Obesity (BMI 30-39.9) Obesity, unspecified DM (diabetes mellitus), 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 Type II or unspecified type diabetes mellitus with neurological manifestations, not stated as uncontrolled Charcot ankle, right Hammertoe of right foot Callus Corns and callosities Onychomycosis Dermatophytosis of nail [facility] Diagnosis Depression Depressive disorder, not elsewhere classified Fibromyalgia Mylagia and myositis, unspecified Vitamin D deficiency Unspecified vitamin D deficiency Elevated AST (SGOT) Nonspecific elevation of levels of transaminase or lactic acid dehydrogenase (LDH) Screening for malignant neoplasm of breast Breast screening, unspecified Need for immunization against ibecgrbnyq-iiyweof-zkkorapjs, combined (DTP) Need for prophylactic vaccination with combined hvlmohffbu-uyyrcpy-gcodnlevy (DTP) vaccine Arthritis Arthropathy, unspecified, site unspecified Mixed hyperlipidemia Obesity Obesity, unspecified Skin sensation disturbance Disturbance of skin sensation Lumbar pain Lumbago Preoperative examination- Primary Preoperative examination, unspecified Ulnar neuropathy of right upper extremity Lesion of ulnar nerve Type 2 diabetes mellitus without complication, without long-term current use of insulin (HCC) Mixed hyperlipidemia WILTON on CPAP Obstructive sleep apnea (adult) (pediatric) Restless leg syndrome Restless legs syndrome (RLS) Neuropathy Mononeuritis of unspecified site Benign paroxysmal positional vertigo, unspecified laterality Hx-TIA (transient ischemic attack) Transient ischemic attack (TIA), and 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 residual deficits Aneurysm (HCC) Aneurysm of unspecified site Gastroesophageal reflux disease without esophagitis Esophageal reflux Irritable bowel syndrome, unspecified type 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 Fibromyalgia Mylagia and myositis, unspecified Insomnia, unspecified type Anxiety and depression Dysthymic disorder Obesity (BMI 30-39.9) Obesity, unspecified [facility]* Diagnosis Depression Depressive disorder, not elsewhere classified Fibromyalgia Mylagia and myositis, unspecified Vitamin D deficiency Unspecified vitamin D deficiency Elevated AST (SGOT) Nonspecific elevation of levels of transaminase or lactic acid dehydrogenase (LDH) Screening for malignant neoplasm of breast Breast screening, unspecified Need for immunization against hypcrmuanm-wdsoqwg-gakedmukw, combined (DTP) Need for prophylactic vaccination with combined pgzduwmfoi-cpivjlw-nrnolwphp (DTP) vaccine Arthritis Arthropathy, unspecified, site unspecified Mixed hyperlipidemia Obesity Obesity, unspecified Preoperative examination- Primary Preoperative examination, unspecified Ulnar neuropathy of right upper extremity Lesion of ulnar nerve Type 2 diabetes mellitus without complication, without long-term current use of insulin ([facility]) Mixed hyperlipidemia WILTON on CPAP Obstructive sleep apnea (adult) (pediatric) Restless leg syndrome Restless legs syndrome (RLS) Neuropathy Mononeuritis of unspecified site Benign paroxysmal positional vertigo, unspecified laterality Hx-TIA (transient ischemic attack) Transient ischemic attack (TIA), and 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 residual deficits Aneurysm (HCC) Aneurysm of unspecified site Gastroesophageal reflux disease without esophagitis Esophageal reflux Irritable bowel syndrome, unspecified type 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 Fibromyalgia Mylagia and myositis, unspecified Insomnia, unspecified type Anxiety and depression Dysthymic disorder Obesity (BMI 30-39.9) Obesity, unspecified Situational anxiety- Primary Other anxiety states [facility] Diagnosis Depression Depressive disorder, not elsewhere classified Fibromyalgia Mylagia and myositis, unspecified Vitamin D deficiency Unspecified vitamin D deficiency Elevated AST (SGOT) Nonspecific elevation of levels of transaminase or lactic acid dehydrogenase (LDH) Screening for malignant neoplasm of breast Breast screening, unspecified Need for immunization against rdwckwfjxv-dlkuojw-gimofxpkm, combined (DTP) Need for prophylactic vaccination with combined pcxbvcqlww-lmvnzez-mntnhfntr (DTP) vaccine Arthritis Arthropathy, unspecified, site unspecified Mixed hyperlipidemia Obesity Obesity, unspecified Fall, initial encounter Preoperative examination- Primary Preoperative examination, unspecified Ulnar neuropathy of right upper extremity Lesion of ulnar nerve Type 2 diabetes mellitus without complication, without long-term current use of insulin (HCC) Mixed hyperlipidemia WILTON on CPAP Obstructive sleep apnea (adult) (pediatric) Restless leg syndrome Restless legs syndrome (RLS) Neuropathy Mononeuritis of unspecified site Benign paroxysmal positional vertigo, unspecified laterality Hx-TIA (transient ischemic attack) Transient ischemic attack (TIA), and 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 residual deficits Aneurysm (HCC) Aneurysm of unspecified site Gastroesophageal reflux disease without esophagitis Esophageal reflux Irritable bowel syndrome, unspecified type 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 Fibromyalgia Mylagia and myositis, unspecified Insomnia, unspecified type Anxiety and depression Dysthymic disorder Obesity (BMI 30-39.9) Obesity, unspecified [facility] Depression Depressive disorder, not elsewhere classified Fibromyalgia Mylagia and myositis, unspecified Vitamin D deficiency Unspecified vitamin D deficiency Elevated AST (SGOT) Nonspecific elevation of levels of transaminase or lactic acid dehydrogenase (LDH) Screening for malignant neoplasm of breast Breast screening, unspecified Need for immunization against ckwekxjdiv-ntlmfsr-hgmxpzrhq, combined (DTP) Need for prophylactic vaccination with combined cwfspbpfbx-tecpxgi-tkvvhxssu (DTP) vaccine Arthritis Arthropathy, unspecified, site unspecified Mixed hyperlipidemia Obesity Obesity, unspecified Preoperative examination- Primary Preoperative examination, unspecified Ulnar neuropathy of right upper extremity Lesion of ulnar nerve Type 2 diabetes mellitus without complication, without long-term current use of insulin (HCC) Mixed hyperlipidemia WILTON on CPAP Obstructive sleep apnea (adult) (pediatric) Restless leg syndrome Restless legs syndrome (RLS) Neuropathy Mononeuritis of unspecified site Benign paroxysmal positional vertigo, unspecified laterality Hx-TIA (transient ischemic attack) Transient ischemic attack (TIA), and 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 residual deficits Aneurysm (HCC) Aneurysm of unspecified site Gastroesophageal reflux disease without esophagitis Esophageal reflux Irritable bowel syndrome, unspecified type 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 Fibromyalgia Mylagia and myositis, unspecified Insomnia, unspecified type Anxiety and depression Dysthymic disorder Obesity (BMI 30-39.9) Obesity, unspecified Type 2 diabetes mellitus without complication, without long-term current use of insulin (HCC) [facility] Diagnosis Depression Depressive disorder, not elsewhere classified Fibromyalgia Mylagia and myositis, unspecified Vitamin D deficiency Unspecified vitamin D deficiency Elevated AST (SGOT) Nonspecific elevation of levels of transaminase or lactic acid dehydrogenase (LDH) Screening for malignant neoplasm of breast Breast screening, unspecified Need for immunization against pzqultswus-hooateh-valycywxb, combined (DTP) Need for prophylactic vaccination with combined pybhqlfvms-vfbeigz-ggaafsxhu (DTP) vaccine Arthritis Arthropathy, unspecified, site unspecified Mixed hyperlipidemia Obesity Obesity, unspecified Hammertoe of left foot Ulcer of toe of left foot, limited to breakdown of skin (HCC) Preoperative examination- Primary Preoperative examination, unspecified Ulnar neuropathy of right upper extremity Lesion of ulnar nerve Type 2 diabetes mellitus without complication, without long-term current use of insulin (HCC) Mixed hyperlipidemia WILTON on CPAP Obstructive sleep apnea (adult) (pediatric) Restless leg syndrome Restless legs syndrome (RLS) Neuropathy Mononeuritis of unspecified site Benign paroxysmal positional vertigo, unspecified laterality Hx-TIA (transient ischemic attack) Transient ischemic attack (TIA), and 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 residual deficits Aneurysm (HCC) Aneurysm of unspecified site Gastroesophageal reflux disease without esophagitis Esophageal reflux Irritable bowel syndrome, unspecified type 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 Fibromyalgia Mylagia and myositis, unspecified Insomnia, unspecified type Anxiety and depression Dysthymic disorder Obesity (BMI 30-39.9) Obesity, unspecified [facility] Diagnosis Depression Depressive disorder, not elsewhere classified Fibromyalgia Mylagia and myositis, unspecified Vitamin D deficiency Unspecified vitamin D deficiency Elevated AST (SGOT) Nonspecific elevation of levels of transaminase or lactic acid dehydrogenase (LDH) Screening for malignant neoplasm of breast Breast screening, unspecified Need for immunization against vejtfbxnaw-dnjwgff-ohgfwtcmq, combined (DTP) Need for prophylactic vaccination with combined esujvpkhbl-khmcndu-hxbrktxee (DTP) vaccine Arthritis Arthropathy, unspecified, site unspecified Mixed hyperlipidemia Obesity Obesity, unspecified Paresthesia Disturbance of skin sensation Weakness Other malaise and fatigue Preoperative examination- Primary Preoperative examination, unspecified Ulnar neuropathy of right upper extremity Lesion of ulnar nerve Type 2 diabetes mellitus without complication, without long-term current use of insulin (HCC) Mixed hyperlipidemia WILTON on CPAP Obstructive sleep apnea (adult) (pediatric) Restless leg syndrome Restless legs syndrome (RLS) Neuropathy Mononeuritis of unspecified site Benign paroxysmal positional vertigo, unspecified laterality Hx-TIA (transient ischemic attack) Transient ischemic attack (TIA), and 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 residual deficits Aneurysm (HCC) Aneurysm of unspecified site Gastroesophageal reflux disease without esophagitis Esophageal reflux Irritable bowel syndrome, unspecified type 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 Fibromyalgia Mylagia and myositis, unspecified Insomnia, unspecified type Anxiety and depression Dysthymic disorder Obesity (BMI 30-39.9) Obesity, unspecified [facility] Diagnosis Depression Depressive disorder, not elsewhere classified Fibromyalgia Mylagia and myositis, unspecified Vitamin D deficiency Unspecified vitamin D deficiency Elevated AST (SGOT) Nonspecific elevation of levels of transaminase or lactic acid dehydrogenase (LDH) Screening for malignant neoplasm of breast Breast screening, unspecified Need for immunization against rvxolwhcfx-usbyjfs-nbomglfwp, combined (DTP) Need for prophylactic vaccination with combined othclxfeun-qfbbmwy-tdkabmwjj (DTP) vaccine Arthritis Arthropathy, unspecified, site unspecified Mixed hyperlipidemia Obesity Obesity, unspecified Preoperative examination- Primary Preoperative examination, unspecified Ulnar neuropathy of right upper extremity Lesion of ulnar nerve Type 2 diabetes mellitus without complication, without long-term current use of insulin (HCC) Mixed hyperlipidemia WILTON on CPAP Obstructive sleep apnea (adult) (pediatric) Restless leg syndrome Restless legs syndrome (RLS) Neuropathy Mononeuritis of unspecified site Benign paroxysmal positional vertigo, unspecified laterality Hx-TIA (transient ischemic attack) Transient ischemic attack (TIA), and 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 residual deficits Aneurysm (HCC) Aneurysm of unspecified site Gastroesophageal reflux disease without esophagitis Esophageal reflux Irritable bowel syndrome, unspecified type 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 Fibromyalgia Mylagia and myositis, unspecified Insomnia, unspecified type Anxiety and depression Dysthymic disorder Obesity (BMI 30-39.9) Obesity, unspecified Spinal stenosis of cervical region Spinal stenosis in cervical region Osteoarthritis of spine with radiculopathy, cervical region [facility]* Diagnosis Depression Depressive disorder, not elsewhere classified Fibromyalgia Mylagia and myositis, unspecified Vitamin D deficiency Unspecified vitamin D deficiency Elevated AST (SGOT) Nonspecific elevation of levels of transaminase or lactic acid dehydrogenase (LDH) Screening for malignant neoplasm of breast Breast screening, unspecified Need for immunization against paxapcgizg-fpmkyzg-tnwktuvhp, combined (DTP) Need for prophylactic vaccination with combined zlmrpbnavn-gqlosba-qsnsfiodc (DTP) vaccine Arthritis Arthropathy, unspecified, site unspecified Mixed hyperlipidemia Obesity Obesity, unspecified Preoperative examination- Primary Preoperative examination, unspecified Ulnar neuropathy of right upper extremity Lesion of ulnar nerve Type 2 diabetes mellitus without complication, without long-term current use of insulin (HCC) Mixed hyperlipidemia WILTON on CPAP Obstructive sleep apnea (adult) (pediatric) Restless leg syndrome Restless legs syndrome (RLS) Neuropathy Mononeuritis of unspecified site Benign paroxysmal positional vertigo, unspecified laterality Hx-TIA (transient ischemic attack) Transient ischemic attack (TIA), and 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 residual deficits Aneurysm (HCC) Aneurysm of unspecified site Gastroesophageal reflux disease without esophagitis Esophageal reflux Irritable bowel syndrome, unspecified type 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 Fibromyalgia Mylagia and myositis, unspecified Insomnia, unspecified type Anxiety and depression Dysthymic disorder Obesity (BMI 30-39.9) Obesity, unspecified Spinal stenosis of cervical region- Primary Spinal stenosis in cervical region DDD (degenerative disc disease), cervical Degeneration of cervical intervertebral disc Spinal stenosis of cervical region Spinal stenosis in cervical region DDD (degenerative disc disease), cervical Degeneration of cervical intervertebral disc [facility] Diagnosis Depression Depressive disorder, not elsewhere classified Fibromyalgia Mylagia and myositis, unspecified Vitamin D deficiency Unspecified vitamin D deficiency Elevated AST (SGOT) Nonspecific elevation of levels of transaminase or lactic acid dehydrogenase (LDH) Screening for malignant neoplasm of breast Breast screening, unspecified Need for immunization against gduyemdrdt-xhurdss-lhalvneoe, combined (DTP) Need for prophylactic vaccination with combined bbbfgqbyko-ngggjne-xeueffpkk (DTP) vaccine Arthritis Arthropathy, unspecified, site unspecified Mixed hyperlipidemia Obesity Obesity, unspecified Preoperative examination- Primary Preoperative examination, unspecified Ulnar neuropathy of right upper extremity Lesion of ulnar nerve Type 2 diabetes mellitus without complication, without long-term current use of insulin (HCC) Mixed hyperlipidemia WILTON on CPAP Obstructive sleep apnea (adult) (pediatric) Restless leg syndrome Restless legs syndrome (RLS) Neuropathy Mononeuritis of unspecified site Benign paroxysmal positional vertigo, unspecified laterality Hx-TIA (transient ischemic attack) Transient ischemic attack (TIA), and 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 residual deficits Aneurysm (HCC) Aneurysm of unspecified site Gastroesophageal reflux disease without esophagitis Esophageal reflux Irritable bowel syndrome, unspecified type 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 Fibromyalgia Mylagia and myositis, unspecified Insomnia, unspecified type Anxiety and depression Dysthymic disorder Obesity (BMI 30-39.9) Obesity, unspecified Spinal stenosis of cervical region- Primary Spinal stenosis in cervical region DDD (degenerative disc disease), cervical Degeneration of cervical intervertebral disc Spinal stenosis of cervical region Spinal stenosis in cervical region DDD (degenerative disc disease), cervical Degeneration of cervical intervertebral disc [facility] Diagnosis Depression Depressive disorder, not elsewhere classified Fibromyalgia Mylagia and myositis, unspecified Vitamin D deficiency Unspecified vitamin D deficiency Elevated AST (SGOT) Nonspecific elevation of levels of transaminase or lactic acid dehydrogenase (LDH) Screening for malignant neoplasm of breast Breast screening, unspecified Need for immunization against azvrcmqpvh-nbucqcr-dlzpnqpci, combined (DTP) Need for prophylactic vaccination with combined cqknbnibgr-eqbcuyn-xnmogdbdh (DTP) vaccine Arthritis Arthropathy, unspecified, site unspecified Mixed hyperlipidemia Obesity Obesity, unspecified Acute bilateral low back pain without sciatica Chronic right shoulder pain Pain in joint, shoulder region Preoperative examination- Primary Preoperative examination, unspecified Ulnar neuropathy of right upper extremity Lesion of ulnar nerve Type 2 diabetes mellitus without complication, without long-term current use of insulin (HCC) Mixed hyperlipidemia WILTON on CPAP Obstructive sleep apnea (adult) (pediatric) Restless leg syndrome Restless legs syndrome (RLS) Neuropathy Mononeuritis of unspecified site Benign paroxysmal positional vertigo, unspecified laterality Hx-TIA (transient ischemic attack) Transient ischemic attack (TIA), and 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 residual deficits Aneurysm (HCC) Aneurysm of unspecified site Gastroesophageal reflux disease without esophagitis Esophageal reflux Irritable bowel syndrome, unspecified type 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 Fibromyalgia Mylagia and myositis, unspecified Insomnia, unspecified type Anxiety and depression Dysthymic disorder Obesity (BMI 30-39.9) Obesity, unspecified Spinal stenosis of cervical region Spinal stenosis in cervical region DDD (degenerative disc disease), cervical Degeneration of cervical intervertebral disc [facility]* Diagnosis Depression Depressive disorder, not elsewhere classified Fibromyalgia Mylagia and myositis, unspecified Vitamin D deficiency Unspecified vitamin D deficiency Elevated AST (SGOT) Nonspecific elevation of levels of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 complication, without long-term current use of insulin (HCC) Mixed hyperlipidemia WILTON on CPAP Obstructive sleep apnea (adult) (pediatric) Restless leg syndrome Restless legs syndrome (RLS) Neuropathy Mononeuritis of unspecified site Benign paroxysmal positional vertigo, unspecified laterality Hx-TIA (transient ischemic attack) Transient ischemic attack (TIA), and 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 residual deficits Aneurysm (HCC) Aneurysm of unspecified site Gastroesophageal reflux disease without esophagitis Esophageal reflux Irritable bowel syndrome, unspecified type 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 Fibromyalgia Mylagia and myositis, unspecified Insomnia, unspecified type Anxiety and depression Dysthymic disorder Obesity (BMI 30-39.9) Obesity, unspecified Menorrhagia with irregular cycle- Primary Excessive or frequent menstruation Abnormal uterine bleeding (AUB) [facility] Diagnosis Depression Depressive disorder, not elsewhere classified Fibromyalgia Mylagia and myositis, unspecified Vitamin D deficiency Unspecified vitamin D deficiency Elevated AST (SGOT) Nonspecific elevation of levels of transaminase or lactic acid dehydrogenase (LDH) Screening for malignant neoplasm of breast Breast screening, unspecified Need for immunization against ajjnetliuf-cykxluk-qwglrnmnk, combined (DTP) Need for prophylactic vaccination with combined ugpbqsmbxa-ukkesja-unswvjsnv (DTP) vaccine Arthritis Arthropathy, unspecified, site unspecified Mixed hyperlipidemia Obesity Obesity, unspecified Preoperative examination- Primary Preoperative examination, unspecified Ulnar neuropathy of right upper extremity Lesion of ulnar nerve Type 2 diabetes mellitus without complication, without long-term current use of insulin (HCC) Mixed hyperlipidemia WILTON on CPAP Obstructive sleep apnea (adult) (pediatric) Restless leg syndrome Restless legs syndrome (RLS) Neuropathy Mononeuritis of unspecified site Benign paroxysmal positional vertigo, unspecified laterality Hx-TIA (transient ischemic attack) Transient ischemic attack (TIA), and 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 residual deficits Aneurysm (HCC) Aneurysm of unspecified site Gastroesophageal reflux disease without esophagitis Esophageal reflux Irritable bowel syndrome, unspecified type 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 Fibromyalgia Mylagia and myositis, unspecified Insomnia, unspecified type Anxiety and depression Dysthymic disorder Obesity (BMI 30-39.9) Obesity, unspecified Menorrhagia with irregular cycle- Primary Excessive or frequent menstruation Adenomyosis Endometriosis of uterus Dysmenorrhea * Assessment & Plan Note - Yanni Malone MD - 03/30/2024 12:41 PM EST Associated Problem(s): Menorrhagia with irregular cycle * Assessment & Plan Note - Yanni Malone MD - 03/30/2024 12:41 PM EST Associated Problem(s): Adenomyosis * Assessment & Plan Note - Yanni Malone MD - 03/30/2024 12:41 PM EST Associated Problem(s): Dysmenorrhea documented in this encounter [facility] note* Diagnosis Depression Depressive disorder, not elsewhere classified Fibromyalgia Mylagia and myositis, unspecified Vitamin D deficiency Unspecified vitamin D deficiency Elevated AST (SGOT) Nonspecific elevation of levels of transaminase or lactic acid dehydrogenase (LDH) Screening for malignant neoplasm of breast Breast screening, unspecified Need for immunization against fajyfdioly-xczpylu-itxyshemx, combined (DTP) Need for prophylactic vaccination with combined mzcpxkawuo-qhprkzg-wvxmpepwz (DTP) vaccine Arthritis Arthropathy, unspecified, site unspecified Mixed hyperlipidemia Obesity Obesity, unspecified Preoperative examination- Primary Preoperative examination, unspecified Ulnar neuropathy of right upper extremity Lesion of ulnar nerve Type 2 diabetes mellitus without complication, without long-term current use of insulin (HCC) Mixed hyperlipidemia WILTON on CPAP Obstructive sleep apnea (adult) (pediatric) Restless leg syndrome Restless legs syndrome (RLS) Neuropathy Mononeuritis of unspecified site Benign paroxysmal positional vertigo, unspecified laterality Hx-TIA (transient ischemic attack) Transient ischemic attack (TIA), and 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 residual deficits Aneurysm (HCC) Aneurysm of unspecified site Gastroesophageal reflux disease without esophagitis Esophageal reflux Irritable bowel syndrome, unspecified type 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 Fibromyalgia Mylagia and myositis, unspecified Insomnia, unspecified type Anxiety and depression Dysthymic disorder Obesity (BMI 30-39.9) Obesity, unspecified Menorrhagia with irregular cycle- Primary Excessive or frequent menstruation Adenomyosis Endometriosis of uterus Dysmenorrhea Preop exam for internal medicine- Primary Other specified pre-operative examination Type 2 diabetes mellitus without complication, without long-term current use of insulin (HCC) documented in this encounter [facility] note* Diagnosis Depression Depressive disorder, not elsewhere classified Fibromyalgia Mylagia and myositis, unspecified Vitamin D deficiency Unspecified vitamin D deficiency Elevated AST (SGOT) Nonspecific elevation of levels of transaminase or lactic acid dehydrogenase (LDH) Screening for malignant neoplasm of breast Breast screening, unspecified Need for immunization against xvsgprilxl-hbfqlit-kpcgzdcbc, combined (DTP) Need for prophylactic vaccination with combined iptspfpvtm-rvegubz-xofkvxbhx (DTP) vaccine Arthritis Arthropathy, unspecified, site unspecified Mixed hyperlipidemia Obesity Obesity, unspecified Preoperative examination- Primary Preoperative examination, unspecified Ulnar neuropathy of right upper extremity Lesion of ulnar nerve Type 2 diabetes mellitus without complication, without long-term current use of insulin (HCC) Mixed hyperlipidemia WILTON on CPAP Obstructive sleep apnea (adult) (pediatric) Restless leg syndrome Restless legs syndrome (RLS) Neuropathy Mononeuritis of unspecified site Benign paroxysmal positional vertigo, unspecified laterality Hx-TIA (transient ischemic attack) Transient ischemic attack (TIA), and 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 residual deficits Aneurysm (HCC) Aneurysm of unspecified site Gastroesophageal reflux disease without esophagitis Esophageal reflux Irritable bowel syndrome, unspecified type 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 Fibromyalgia Mylagia and myositis, unspecified Insomnia, unspecified type Anxiety and depression Dysthymic disorder Obesity (BMI 30-39.9) Obesity, unspecified Menorrhagia with irregular cycle- Primary Excessive or frequent menstruation Adenomyosis Endometriosis of uterus Dysmenorrhea Onychomycosis- Primary Dermatophytosis of nail Pain in toe of left foot Pain in limb Pain in toe of right foot Pain in limb Diabetic polyneuropathy associated with type 2 diabetes mellitus (HCC) Hammertoe of left foot Callus Corns and callosities Plantar wart, right foot Plantar wart [facility] Diagnosis Depression Depressive disorder, not elsewhere classified Fibromyalgia Mylagia and myositis, unspecified Vitamin D deficiency Unspecified vitamin D deficiency Elevated AST (SGOT) Nonspecific elevation of levels of transaminase or lactic acid dehydrogenase (LDH) Screening for malignant neoplasm of breast Breast screening, unspecified Need for immunization against nkzhyhqhcj-gzwytvr-elyzagwjn, combined (DTP) Need for prophylactic vaccination with combined lrxikwnijn-akfetwy-ylegdvyxt (DTP) vaccine Arthritis Arthropathy, unspecified, site unspecified Mixed hyperlipidemia Obesity Obesity, unspecified Preoperative examination- Primary Preoperative examination, unspecified Ulnar neuropathy of right upper extremity Lesion of ulnar nerve Type 2 diabetes mellitus without complication, without long-term current use of insulin (HCC) Mixed hyperlipidemia WILTON on CPAP Obstructive sleep apnea (adult) (pediatric) Restless leg syndrome Restless legs syndrome (RLS) Neuropathy Mononeuritis of unspecified site Benign paroxysmal positional vertigo, unspecified laterality Hx-TIA (transient ischemic attack) Transient ischemic attack (TIA), and 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 residual deficits Aneurysm (HCC) Aneurysm of unspecified site Gastroesophageal reflux disease without esophagitis Esophageal reflux Irritable bowel syndrome, unspecified type 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 Fibromyalgia Mylagia and myositis, unspecified Insomnia, unspecified type Anxiety and depression Dysthymic disorder Obesity (BMI 30-39.9) Obesity, unspecified Menorrhagia with irregular cycle- Primary Excessive or frequent menstruation Adenomyosis Endometriosis of uterus Dysmenorrhea Menorrhagia with irregular cycle- Primary Excessive or frequent menstruation Adenomyosis Endometriosis of uterus Dysmenorrhea Abnormal uterine bleeding (AUB) Adhesion of omentum Peritoneal adhesions (postoperative) (postinfection) Bladder adhesions Other specified disorders of bladder [facility] Depression Depressive disorder, not elsewhere classified Fibromyalgia Mylagia and myositis, unspecified Vitamin D deficiency Unspecified vitamin D deficiency Elevated AST (SGOT) Nonspecific elevation of levels of transaminase or lactic acid dehydrogenase (LDH) Screening for malignant neoplasm of breast Breast screening, unspecified Need for immunization against dwwkejptgf-vbfhecd-hzkzbvxrp, combined (DTP) Need for prophylactic vaccination with combined sycqcupces-nsqmaon-dcpkgysig (DTP) vaccine Arthritis Arthropathy, unspecified, site unspecified Mixed hyperlipidemia Obesity Obesity, unspecified Preoperative examination- Primary Preoperative examination, unspecified Ulnar neuropathy of right upper extremity Lesion of ulnar nerve Type 2 diabetes mellitus without complication, without long-term current use of insulin (HCC) Mixed hyperlipidemia WILTON on CPAP Obstructive sleep apnea (adult) (pediatric) Restless leg syndrome Restless legs syndrome (RLS) Neuropathy Mononeuritis of unspecified site Benign paroxysmal positional vertigo, unspecified laterality Hx-TIA (transient ischemic attack) Transient ischemic attack (TIA), and 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 residual deficits Aneurysm (HCC) Aneurysm of unspecified site Gastroesophageal reflux disease without esophagitis Esophageal reflux Irritable bowel syndrome, unspecified type 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 Fibromyalgia Mylagia and myositis, unspecified Insomnia, unspecified type Anxiety and depression Dysthymic disorder Obesity (BMI 30-39.9) Obesity, unspecified Menorrhagia with irregular cycle- Primary Excessive or frequent menstruation Adenomyosis Endometriosis of uterus Dysmenorrhea Dysuria- Primary [facility] Diagnosis Depression Depressive disorder, not elsewhere classified Fibromyalgia Mylagia and myositis, unspecified Vitamin D deficiency Unspecified vitamin D deficiency Elevated AST (SGOT) Nonspecific elevation of levels of transaminase or lactic acid dehydrogenase (LDH) Screening for malignant neoplasm of breast Breast screening, unspecified Need for immunization against lmecnarsww-keulyom-azonkxsfx, combined (DTP) Need for prophylactic vaccination with combined ksnduquwha-uojqwdg-jpgfalsdj (DTP) vaccine Arthritis Arthropathy, unspecified, site unspecified Mixed hyperlipidemia Obesity Obesity, unspecified Preoperative examination- Primary Preoperative examination, unspecified Ulnar neuropathy of right upper extremity Lesion of ulnar nerve Type 2 diabetes mellitus without complication, without long-term current use of insulin (HCC) Mixed hyperlipidemia WILTON on CPAP Obstructive sleep apnea (adult) (pediatric) Restless leg syndrome Restless legs syndrome (RLS) Neuropathy Mononeuritis of unspecified site Benign paroxysmal positional vertigo, unspecified laterality Hx-TIA (transient ischemic attack) Transient ischemic attack (TIA), and 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 residual deficits Aneurysm (HCC) Aneurysm of unspecified site Gastroesophageal reflux disease without esophagitis Esophageal reflux Irritable bowel syndrome, unspecified type 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 Fibromyalgia Mylagia and myositis, unspecified Insomnia, unspecified type Anxiety and depression Dysthymic disorder Obesity (BMI 30-39.9) Obesity, unspecified Menorrhagia with irregular cycle- Primary Excessive or frequent menstruation Adenomyosis Endometriosis of uterus Dysmenorrhea Postop check- Primary Follow-up examination, following unspecified surgery Hot flash not due to menopause Flushing documented in this encounter [facility] note* Diagnosis Depression Depressive disorder, not elsewhere classified Fibromyalgia Mylagia and myositis, unspecified Vitamin D deficiency Unspecified vitamin D deficiency Elevated AST (SGOT) Nonspecific elevation of levels of transaminase or lactic acid dehydrogenase (LDH) Screening for malignant neoplasm of breast Breast screening, unspecified Need for immunization against rkonsigllv-webizoy-zdgxlalmm, combined (DTP) Need for prophylactic vaccination with combined ldnnbkzgjt-rglgiyl-hpdpydxpg (DTP) vaccine Arthritis Arthropathy, unspecified, site unspecified Mixed hyperlipidemia Obesity Obesity, unspecified Preoperative examination- Primary Preoperative examination, unspecified Ulnar neuropathy of right upper extremity Lesion of ulnar nerve Type 2 diabetes mellitus without complication, without long-term current use of insulin (HCC) Mixed hyperlipidemia WILTON on CPAP Obstructive sleep apnea (adult) (pediatric) Restless leg syndrome Restless legs syndrome (RLS) Neuropathy Mononeuritis of unspecified site Benign paroxysmal positional vertigo, unspecified laterality Hx-TIA (transient ischemic attack) Transient ischemic attack (TIA), and 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 residual deficits Aneurysm (HCC) Aneurysm of unspecified site Gastroesophageal reflux disease without esophagitis Esophageal reflux Irritable bowel syndrome, unspecified type 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 Fibromyalgia Mylagia and myositis, unspecified Insomnia, unspecified type Anxiety and depression Dysthymic disorder Obesity (BMI 30-39.9) Obesity, unspecified Menorrhagia with irregular cycle- Primary Excessive or frequent menstruation Adenomyosis Endometriosis of uterus Dysmenorrhea Callus- Primary Corns and callosities Plantar wart, right foot Plantar wart Ulcer of toe of left foot, limited to breakdown of skin (HCC) [facility] Diagnosis Depression Depressive disorder, not elsewhere classified Fibromyalgia Mylagia and myositis, unspecified Vitamin D deficiency Unspecified vitamin D deficiency Elevated AST (SGOT) Nonspecific elevation of levels of transaminase or lactic acid dehydrogenase (LDH) Screening for malignant neoplasm of breast Breast screening, unspecified Need for immunization against lufudnwhct-tthmuta-twacyjytd, combined (DTP) Need for prophylactic vaccination with combined ttprtlzqbg-wwwdjqq-ckihnvwov (DTP) vaccine Arthritis Arthropathy, unspecified, site unspecified Mixed hyperlipidemia Obesity Obesity, unspecified Preoperative examination- Primary Preoperative examination, unspecified Ulnar neuropathy of right upper extremity Lesion of ulnar nerve Type 2 diabetes mellitus without complication, without long-term current use of insulin (HCC) Mixed hyperlipidemia WILTON on CPAP Obstructive sleep apnea (adult) (pediatric) Restless leg syndrome Restless legs syndrome (RLS) Neuropathy Mononeuritis of unspecified site Benign paroxysmal positional vertigo, unspecified laterality Hx-TIA (transient ischemic attack) Transient ischemic attack (TIA), and 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 residual deficits Aneurysm (HCC) Aneurysm of unspecified site Gastroesophageal reflux disease without esophagitis Esophageal reflux Irritable bowel syndrome, unspecified type 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 Fibromyalgia Mylagia and myositis, unspecified Insomnia, unspecified type Anxiety and depression Dysthymic disorder Obesity (BMI 30-39.9) Obesity, unspecified Menorrhagia with irregular cycle- Primary Excessive or frequent menstruation Adenomyosis Endometriosis of uterus Dysmenorrhea Neuropathy Mononeuritis of unspecified site documented in this encounter [facility] note* Diagnosis Depression Depressive disorder, not elsewhere classified Fibromyalgia Mylagia and myositis, unspecified Vitamin D deficiency Unspecified vitamin D deficiency Elevated AST (SGOT) Nonspecific elevation of levels of transaminase or lactic acid dehydrogenase (LDH) Screening for malignant neoplasm of breast Breast screening, unspecified Need for immunization against ekmqotkkcn-zfiyvou-neeikicys, combined (DTP) Need for prophylactic vaccination with combined ewwmmdneih-qxnxiph-oovkcmzcw (DTP) vaccine Arthritis Arthropathy, unspecified, site unspecified Mixed hyperlipidemia Obesity Obesity, unspecified Preoperative examination- Primary Preoperative examination, unspecified Ulnar neuropathy of right upper extremity Lesion of ulnar nerve Type 2 diabetes mellitus without complication, without long-term current use of insulin (HCC) Mixed hyperlipidemia WILTON on CPAP Obstructive sleep apnea (adult) (pediatric) Restless leg syndrome Restless legs syndrome (RLS) Neuropathy Mononeuritis of unspecified site Benign paroxysmal positional vertigo, unspecified laterality Hx-TIA (transient ischemic attack) Transient ischemic attack (TIA), and 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 residual deficits Aneurysm (HCC) Aneurysm of unspecified site Gastroesophageal reflux disease without esophagitis Esophageal reflux Irritable bowel syndrome, unspecified type 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 Fibromyalgia Mylagia and myositis, unspecified Insomnia, unspecified type Anxiety and depression Dysthymic disorder Obesity (BMI 30-39.9) Obesity, unspecified Menorrhagia with irregular cycle- Primary Excessive or frequent menstruation Adenomyosis Endometriosis of uterus Dysmenorrhea Encounter for screening mammogram for breast cancer- Primary documented in this encounter [facility] note* Diagnosis Depression Depressive disorder, not elsewhere classified Fibromyalgia Mylagia and myositis, unspecified Vitamin D deficiency Unspecified vitamin D deficiency Elevated AST (SGOT) Nonspecific elevation of levels of transaminase or lactic acid dehydrogenase (LDH) Screening for malignant neoplasm of breast Breast screening, unspecified Need for immunization against lgifngoaql-nwrjigj-caakfergm, combined (DTP) Need for prophylactic vaccination with combined pdmemzptmi-ujfeqfh-xjvmuluwq (DTP) vaccine Arthritis Arthropathy, unspecified, site unspecified Mixed hyperlipidemia Obesity Obesity, unspecified Preoperative examination- Primary Preoperative examination, unspecified Ulnar neuropathy of right upper extremity Lesion of ulnar nerve Type 2 diabetes mellitus without complication, without long-term current use of insulin (HCC) Mixed hyperlipidemia WILTON on CPAP Obstructive sleep apnea (adult) (pediatric) Restless leg syndrome Restless legs syndrome (RLS) Neuropathy Mononeuritis of unspecified site Benign paroxysmal positional vertigo, unspecified laterality Hx-TIA (transient ischemic attack) Transient ischemic attack (TIA), and 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 residual deficits Aneurysm (HCC) Aneurysm of unspecified site Gastroesophageal reflux disease without esophagitis Esophageal reflux Irritable bowel syndrome, unspecified type 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 Fibromyalgia Mylagia and myositis, unspecified Insomnia, unspecified type Anxiety and depression Dysthymic disorder Obesity (BMI 30-39.9) Obesity, unspecified Menorrhagia with irregular cycle- Primary Excessive or frequent menstruation Adenomyosis Endometriosis of uterus Dysmenorrhea Hot flash not due to menopause Flushing [facility] Diagnosis Depression Depressive disorder, not elsewhere classified Fibromyalgia Mylagia and myositis, unspecified Vitamin D deficiency Unspecified vitamin D deficiency Elevated AST (SGOT) Nonspecific elevation of levels of transaminase or lactic acid dehydrogenase (LDH) Screening for malignant neoplasm of breast Breast screening, unspecified Need for immunization against twserlfrdf-whpdtuc-iyvrkrguy, combined (DTP) Need for prophylactic vaccination with combined ycginevxoo-tmhkeko-csetershy (DTP) vaccine Arthritis Arthropathy, unspecified, site unspecified Mixed hyperlipidemia Obesity Obesity, unspecified Preoperative examination- Primary Preoperative examination, unspecified Ulnar neuropathy of right upper extremity Lesion of ulnar nerve Type 2 diabetes mellitus without complication, without long-term current use of insulin (HCC) Mixed hyperlipidemia WILTON on CPAP Obstructive sleep apnea (adult) (pediatric) Restless leg syndrome Restless legs syndrome (RLS) Neuropathy Mononeuritis of unspecified site Benign paroxysmal positional vertigo, unspecified laterality Hx-TIA (transient ischemic attack) Transient ischemic attack (TIA), and 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 residual deficits Aneurysm Aneurysm of unspecified site Gastroesophageal reflux disease without esophagitis Esophageal reflux Irritable bowel syndrome, unspecified type 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 Fibromyalgia Mylagia and myositis, unspecified Insomnia, unspecified type Anxiety and depression Dysthymic disorder Obesity (BMI 30-39.9) Obesity, unspecified Menorrhagia with irregular cycle- Primary Excessive or frequent menstruation Adenomyosis Endometriosis of uterus Dysmenorrhea Type 2 diabetes mellitus without complication, without long-term current use of insulin (HCC) [facility] Diagnosis Depression Depressive disorder, not elsewhere classified Fibromyalgia Mylagia and myositis, unspecified Vitamin D deficiency Unspecified vitamin D deficiency Elevated AST (SGOT) Nonspecific elevation of levels of transaminase or lactic acid dehydrogenase (LDH) Screening for malignant neoplasm of breast Breast screening, unspecified Need for immunization against qpavqbdgwh-uifbbpn-nxdhmgwxq, combined (DTP) Need for prophylactic vaccination with combined sbgnujodlh-dbgmhmp-itogxsgbp (DTP) vaccine Arthritis Arthropathy, unspecified, site unspecified Mixed hyperlipidemia Obesity Obesity, unspecified Preoperative examination- Primary Preoperative examination, unspecified Ulnar neuropathy of right upper extremity Lesion of ulnar nerve Type 2 diabetes mellitus without complication, without long-term current use of insulin (HCC) Mixed hyperlipidemia WILTON on CPAP Obstructive sleep apnea (adult) (pediatric) Restless leg syndrome Restless legs syndrome (RLS) Neuropathy Mononeuritis of unspecified site Benign paroxysmal positional vertigo, unspecified laterality Hx-TIA (transient ischemic attack) Transient ischemic attack (TIA), and 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 residual deficits Aneurysm Aneurysm of unspecified site Gastroesophageal reflux disease without esophagitis Esophageal reflux Irritable bowel syndrome, unspecified type 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 Fibromyalgia Mylagia and myositis, unspecified Insomnia, unspecified type Anxiety and depression Dysthymic disorder Obesity (BMI 30-39.9) Obesity, unspecified Menorrhagia with irregular cycle- Primary Excessive or frequent menstruation Adenomyosis Endometriosis of uterus Dysmenorrhea Chronic bilateral low back pain without sciatica documented in this encounter [facility] note* Diagnosis Depression Depressive disorder, not elsewhere classified Fibromyalgia Mylagia and myositis, unspecified Vitamin D deficiency Unspecified vitamin D deficiency Elevated AST (SGOT) Nonspecific elevation of levels of transaminase or lactic acid dehydrogenase (LDH) Screening for malignant neoplasm of breast Breast screening, unspecified Need for immunization against cepwgukuhw-mlarxdd-dlouhzvxm, combined (DTP) Need for prophylactic vaccination with combined mkrmxarxct-smsgyxk-grmhkcxyj (DTP) vaccine Arthritis Arthropathy, unspecified, site unspecified Mixed hyperlipidemia Obesity Obesity, unspecified Preoperative examination- Primary Preoperative examination, unspecified Ulnar neuropathy of right upper extremity Lesion of ulnar nerve Type 2 diabetes mellitus without complication, without long-term current use of insulin (HCC) Mixed hyperlipidemia WILTON on CPAP Obstructive sleep apnea (adult) (pediatric) Restless leg syndrome Restless legs syndrome (RLS) Neuropathy Mononeuritis of unspecified site Benign paroxysmal positional vertigo, unspecified laterality Hx-TIA (transient ischemic attack) Transient ischemic attack (TIA), and 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 residual deficits Aneurysm Aneurysm of unspecified site Gastroesophageal reflux disease without esophagitis Esophageal reflux Irritable bowel syndrome, unspecified type 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 Fibromyalgia Mylagia and myositis, unspecified Insomnia, unspecified type Anxiety and depression Dysthymic disorder Obesity (BMI 30-39.9) Obesity, unspecified Menorrhagia with irregular cycle- Primary Excessive or frequent menstruation Adenomyosis Endometriosis of uterus Dysmenorrhea Type 2 diabetes mellitus without complication, without long-term current use of insulin (HCC) [facility] Diagnosis Depression Depressive disorder, not elsewhere classified Fibromyalgia Mylagia and myositis, unspecified Vitamin D deficiency Unspecified vitamin D deficiency Elevated AST (SGOT) Nonspecific elevation of levels of transaminase or lactic acid dehydrogenase (LDH) Screening for malignant neoplasm of breast Breast screening, unspecified Need for immunization against pwpjyrjugh-nzghccn-edicejvre, combined (DTP) Need for prophylactic vaccination with combined wzonyotbgc-cxvygny-ghvokrwbs (DTP) vaccine Arthritis Arthropathy, unspecified, site unspecified Mixed hyperlipidemia Obesity Obesity, unspecified Preoperative examination- Primary Preoperative examination, unspecified Ulnar neuropathy of right upper extremity Lesion of ulnar nerve Type 2 diabetes mellitus without complication, without long-term current use of insulin (HCC) Mixed hyperlipidemia WILTON on CPAP Obstructive sleep apnea (adult) (pediatric) Restless leg syndrome Restless legs syndrome (RLS) Neuropathy Mononeuritis of unspecified site Benign paroxysmal positional vertigo, unspecified laterality Hx-TIA (transient ischemic attack) Transient ischemic attack (TIA), and 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 residual deficits Aneurysm Aneurysm of unspecified site Gastroesophageal reflux disease without esophagitis Esophageal reflux Irritable bowel syndrome, unspecified type 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 Fibromyalgia Mylagia and myositis, unspecified Insomnia, unspecified type Anxiety and depression Dysthymic disorder Obesity (BMI 30-39.9) Obesity, unspecified Menorrhagia with irregular cycle- Primary Excessive or frequent menstruation Adenomyosis Endometriosis of uterus Dysmenorrhea Type 2 diabetes mellitus without complication, without long-term current use of insulin (HCC) [facility] Diagnosis Depression Depressive disorder, not elsewhere classified Fibromyalgia Mylagia and myositis, unspecified Vitamin D deficiency Unspecified vitamin D deficiency Elevated AST (SGOT) Nonspecific elevation of levels of transaminase or lactic acid dehydrogenase (LDH) Screening for malignant neoplasm of breast Breast screening, unspecified Need for immunization against qyujxnlcmj-ksslwpj-gvszsmsjn, combined (DTP) Need for prophylactic vaccination with combined cozcyejlny-fkinwob-jolmzqffe (DTP) vaccine Arthritis Arthropathy, unspecified, site unspecified Mixed hyperlipidemia Obesity Obesity, unspecified Preoperative examination- Primary Preoperative examination, unspecified Ulnar neuropathy of right upper extremity Lesion of ulnar nerve Type 2 diabetes mellitus without complication, without long-term current use of insulin (HCC) Mixed hyperlipidemia WILTON on CPAP Obstructive sleep apnea (adult) (pediatric) Restless leg syndrome Restless legs syndrome (RLS) Neuropathy Mononeuritis of unspecified site Benign paroxysmal positional vertigo, unspecified laterality Hx-TIA (transient ischemic attack) Transient ischemic attack (TIA), and 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 residual deficits Aneurysm Aneurysm of unspecified site Gastroesophageal reflux disease without esophagitis Esophageal reflux Irritable bowel syndrome, unspecified type 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 Fibromyalgia Mylagia and myositis, unspecified Insomnia, unspecified type Anxiety and depression Dysthymic disorder Obesity (BMI 30-39.9) Obesity, unspecified Menorrhagia with irregular cycle- Primary Excessive or frequent menstruation Adenomyosis Endometriosis of uterus Dysmenorrhea Type 2 diabetes mellitus without complication, without long-term current use of insulin (HCC)- Primary Strain of abdominal muscle, initial encounter Swelling of clavicular region Hot flash, menopausal Symptomatic menopausal or female climacteric states Neuropathy Mononeuritis of unspecified site Vitamin D deficiency Unspecified vitamin D deficiency Hypomagnesemia Disorders of magnesium metabolism Strain of left shoulder, sequela Class 2 obesity due to excess calories with body mass index (BMI) of 36.0 to 36.9 in adult, unspecified whether serious comorbidity present Sprain of right knee, unspecified ligament, initial encounter Sprain of right ankle, unspecified ligament, initial encounter Sprain of left shoulder, unspecified shoulder sprain type, initial encounter Postmenopausal atrophic vaginitis [facility] Diagnosis Depression Depressive disorder, not elsewhere classified Fibromyalgia Mylagia and myositis, unspecified Vitamin D deficiency Unspecified vitamin D deficiency Elevated AST (SGOT) Nonspecific elevation of levels of transaminase or lactic acid dehydrogenase (LDH) Screening for malignant neoplasm of breast Breast screening, unspecified Need for immunization against ocyovutdar-mbkwjri-stovzccac, combined (DTP) Need for prophylactic vaccination with combined pkowesyhcy-cuzwoaq-ourokkfhu (DTP) vaccine Arthritis Arthropathy, unspecified, site unspecified Mixed hyperlipidemia Obesity Obesity, unspecified Preoperative examination- Primary Preoperative examination, unspecified Ulnar neuropathy of right upper extremity Lesion of ulnar nerve Type 2 diabetes mellitus without complication, without long-term current use of insulin (HCC) Mixed hyperlipidemia WILTON on CPAP Obstructive sleep apnea (adult) (pediatric) Restless leg syndrome Restless legs syndrome (RLS) Neuropathy Mononeuritis of unspecified site Benign paroxysmal positional vertigo, unspecified laterality Hx-TIA (transient ischemic attack) Transient ischemic attack (TIA), and 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 residual deficits Aneurysm Aneurysm of unspecified site Gastroesophageal reflux disease without esophagitis Esophageal reflux Irritable bowel syndrome, unspecified type 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 Fibromyalgia Mylagia and myositis, unspecified Insomnia, unspecified type Anxiety and depression Dysthymic disorder Obesity (BMI 30-39.9) Obesity, unspecified Menorrhagia with irregular cycle- Primary Excessive or frequent menstruation Adenomyosis Endometriosis of uterus Dysmenorrhea Callus- Primary Corns and callosities Onychomycosis Dermatophytosis of nail Pain in toe of left foot Pain in limb Pain in toe of right foot Pain in limb Diabetic polyneuropathy associated with type 2 diabetes mellitus (HCC) [facility] Depression Depressive disorder, not elsewhere classified Fibromyalgia Mylagia and myositis, unspecified Vitamin D deficiency Unspecified vitamin D deficiency Elevated AST (SGOT) Nonspecific elevation of levels of transaminase or lactic acid dehydrogenase (LDH) Screening for malignant neoplasm of breast Breast screening, unspecified Need for immunization against vjxbdhuetg-yxphobc-pqgnffpbp, combined (DTP) Need for prophylactic vaccination with combined rreqyaedfb-elhckrh-cmcnwqlry (DTP) vaccine Arthritis Arthropathy, unspecified, site unspecified Mixed hyperlipidemia Obesity Obesity, unspecified Preoperative examination- Primary Preoperative examination, unspecified Ulnar neuropathy of right upper extremity Lesion of ulnar nerve Type 2 diabetes mellitus without complication, without long-term current use of insulin (HCC) Mixed hyperlipidemia WILTON on CPAP Obstructive sleep apnea (adult) (pediatric) Restless leg syndrome Restless legs syndrome (RLS) Neuropathy Mononeuritis of unspecified site Benign paroxysmal positional vertigo, unspecified laterality Hx-TIA (transient ischemic attack) Transient ischemic attack (TIA), and 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 residual deficits Aneurysm Aneurysm of unspecified site Gastroesophageal reflux disease without esophagitis Esophageal reflux Irritable bowel syndrome, unspecified type 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 Fibromyalgia Mylagia and myositis, unspecified Insomnia, unspecified type Anxiety and depression Dysthymic disorder Obesity (BMI 30-39.9) Obesity, unspecified Menorrhagia with irregular cycle- Primary Excessive or frequent menstruation Adenomyosis Endometriosis of uterus Dysmenorrhea Encounter for screening mammogram for breast cancer [facility] Diagnosis Depression Depressive disorder, not elsewhere classified Fibromyalgia Mylagia and myositis, unspecified Vitamin D deficiency Unspecified vitamin D deficiency Elevated AST (SGOT) Nonspecific elevation of levels of transaminase or lactic acid dehydrogenase (LDH) Screening for malignant neoplasm of breast Breast screening, unspecified Need for immunization against ibggaakoqg-ynodwcr-psmzbvigu, combined (DTP) Need for prophylactic vaccination with combined bmdftmscuh-jpgugkr-qvdsohopo (DTP) vaccine Arthritis Arthropathy, unspecified, site unspecified Mixed hyperlipidemia Obesity Obesity, unspecified Preoperative examination- Primary Preoperative examination, unspecified Ulnar neuropathy of right upper extremity Lesion of ulnar nerve Type 2 diabetes mellitus without complication, without long-term current use of insulin ([facility]) Mixed hyperlipidemia WILTON on CPAP Obstructive sleep apnea (adult) (pediatric) Restless leg syndrome Restless legs syndrome (RLS) Neuropathy Mononeuritis of unspecified site Benign paroxysmal positional vertigo, unspecified laterality Hx-TIA (transient ischemic attack) Transient ischemic attack (TIA), and 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 residual deficits Aneurysm Aneurysm of unspecified site Gastroesophageal reflux disease without esophagitis Esophageal reflux Irritable bowel syndrome, unspecified type 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 Fibromyalgia Mylagia and myositis, unspecified Insomnia, unspecified type Anxiety and depression Dysthymic disorder Obesity (BMI 30-39.9) Obesity, unspecified Menorrhagia with irregular cycle- Primary Excessive or frequent menstruation Adenomyosis Endometriosis of uterus Dysmenorrhea Callus- Primary Corns and callosities Diabetic polyneuropathy associated with type 2 diabetes mellitus (HCC) Hammertoe of left foot Hammertoe of right foot Charcot ankle, right [facility] Diagnosis Depression Depressive disorder, not elsewhere classified Fibromyalgia Mylagia and myositis, unspecified Vitamin D deficiency Unspecified vitamin D deficiency Elevated AST (SGOT) Nonspecific elevation of levels of transaminase or lactic acid dehydrogenase (LDH) Screening for malignant neoplasm of breast Breast screening, unspecified Need for immunization against qtpuhpahss-wsqpvbu-xyuabkglp, combined (DTP) Need for prophylactic vaccination with combined uswyoeljme-kthhyio-dnwvopivr (DTP) vaccine Arthritis Arthropathy, unspecified, site unspecified Mixed hyperlipidemia Obesity Obesity, unspecified Preoperative examination- Primary Preoperative examination, unspecified Ulnar neuropathy of right upper extremity Lesion of ulnar nerve Type 2 diabetes mellitus without complication, without long-term current use of insulin (HCC) Mixed hyperlipidemia WILTON on CPAP Obstructive sleep apnea (adult) (pediatric) Restless leg syndrome Restless legs syndrome (RLS) Neuropathy Mononeuritis of unspecified site Benign paroxysmal positional vertigo, unspecified laterality Hx-TIA (transient ischemic attack) Transient ischemic attack (TIA), and 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 residual deficits Aneurysm Aneurysm of unspecified site Gastroesophageal reflux disease without esophagitis Esophageal reflux Irritable bowel syndrome, unspecified type 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 Fibromyalgia Mylagia and myositis, unspecified Insomnia, unspecified type Anxiety and depression Dysthymic disorder Obesity (BMI 30-39.9) Obesity, unspecified Menorrhagia with irregular cycle- Primary Excessive or frequent menstruation Adenomyosis Endometriosis of uterus Dysmenorrhea Chronic bilateral low back pain without sciatica [facility] Diagnosis Depression Depressive disorder, not elsewhere classified Fibromyalgia Mylagia and myositis, unspecified Vitamin D deficiency Unspecified vitamin D deficiency Elevated AST (SGOT) Nonspecific elevation of levels of transaminase or lactic acid dehydrogenase (LDH) Screening for malignant neoplasm of breast Breast screening, unspecified Need for immunization against snxskzijyi-grneofy-thicgftrt, combined (DTP) Need for prophylactic vaccination with combined gfydajxwln-ctlksvd-uetnjxeif (DTP) vaccine Arthritis Arthropathy, unspecified, site unspecified Mixed hyperlipidemia Obesity Obesity, unspecified Preoperative examination- Primary Preoperative examination, unspecified Ulnar neuropathy of right upper extremity Lesion of ulnar nerve Type 2 diabetes mellitus without complication, without long-term current use of insulin (HCC) Mixed hyperlipidemia WILTON on CPAP Obstructive sleep apnea (adult) (pediatric) Restless leg syndrome Restless legs syndrome (RLS) Neuropathy Mononeuritis of unspecified site Benign paroxysmal positional vertigo, unspecified laterality Hx-TIA (transient ischemic attack) Transient ischemic attack (TIA), and 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 residual deficits Aneurysm Aneurysm of unspecified site Gastroesophageal reflux disease without esophagitis Esophageal reflux Irritable bowel syndrome, unspecified type 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 Fibromyalgia Mylagia and myositis, unspecified Insomnia, unspecified type Anxiety and depression Dysthymic disorder Obesity (BMI 30-39.9) Obesity, unspecified Menorrhagia with irregular cycle- Primary Excessive or frequent menstruation Adenomyosis Endometriosis of uterus Dysmenorrhea 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 Onychomycosis Dermatophytosis of nail Pain in toe of left foot Pain in limb Pain in toe of right foot Pain in limb Hallux valgus of left foot Hallux valgus of right foot 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) Type II or unspecified type diabetes mellitus with other specified manifestations, not stated as uncontrolled [facility] Diagnosis Depression Depressive disorder, not elsewhere classified Fibromyalgia Mylagia and myositis, unspecified Vitamin D deficiency Unspecified vitamin D deficiency Elevated AST (SGOT) Nonspecific elevation of levels of transaminase or lactic acid dehydrogenase (LDH) Screening for malignant neoplasm of breast Breast screening, unspecified Need for immunization against vowuqlrgbk-yemyduh-zyuvdgvvq, combined (DTP) Need for prophylactic vaccination with combined fjkrqnagwt-beouthn-tpljxtrzk (DTP) vaccine Arthritis Arthropathy, unspecified, site unspecified Mixed hyperlipidemia Obesity Obesity, unspecified Preoperative examination- Primary Preoperative examination, unspecified Ulnar neuropathy of right upper extremity Lesion of ulnar nerve Type 2 diabetes mellitus without complication, without long-term current use of insulin (HCC) Mixed hyperlipidemia WILTON on CPAP Obstructive sleep apnea (adult) (pediatric) Restless leg syndrome Restless legs syndrome (RLS) Neuropathy Mononeuritis of unspecified site Benign paroxysmal positional vertigo, unspecified laterality Hx-TIA (transient ischemic attack) Transient ischemic attack (TIA), and 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 residual deficits Aneurysm Aneurysm of unspecified site Gastroesophageal reflux disease without esophagitis Esophageal reflux Irritable bowel syndrome, unspecified type 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 Fibromyalgia Mylagia and myositis, unspecified Insomnia, unspecified type Anxiety and depression Dysthymic disorder Obesity (BMI 30-39.9) Obesity, unspecified Menorrhagia with irregular cycle- Primary Excessive or frequent menstruation Adenomyosis Endometriosis of uterus Dysmenorrhea Hallux valgus of left foot Hallux valgus of right foot 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) Type II or unspecified type diabetes mellitus with other specified manifestations, not stated as uncontrolled [facility] Diagnosis Depression Depressive disorder, not elsewhere classified Fibromyalgia Mylagia and myositis, unspecified Vitamin D deficiency Unspecified vitamin D deficiency Elevated AST (SGOT) Nonspecific elevation of levels of transaminase or lactic acid dehydrogenase (LDH) Screening for malignant neoplasm of breast Breast screening, unspecified Need for immunization against debrdbawyb-mcghdqq-rofvnzcvt, combined (DTP) Need for prophylactic vaccination with combined srxbubpzjl-msxktul-dwpzjbggj (DTP) vaccine Arthritis Arthropathy, unspecified, site unspecified Mixed hyperlipidemia Obesity Obesity, unspecified Preoperative examination- Primary Preoperative examination, unspecified Ulnar neuropathy of right upper extremity Lesion of ulnar nerve Type 2 diabetes mellitus without complication, without long-term current use of insulin (HCC) Mixed hyperlipidemia WILTON on CPAP Obstructive sleep apnea (adult) (pediatric) Restless leg syndrome Restless legs syndrome (RLS) Neuropathy Mononeuritis of unspecified site Benign paroxysmal positional vertigo, unspecified laterality Hx-TIA (transient ischemic attack) Transient ischemic attack (TIA), and 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 residual deficits Aneurysm Aneurysm of unspecified site Gastroesophageal reflux disease without esophagitis Esophageal reflux Irritable bowel syndrome, unspecified type 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 Fibromyalgia Mylagia and myositis, unspecified Insomnia, unspecified type Anxiety and depression Dysthymic disorder Obesity (BMI 30-39.9) Obesity, unspecified Menorrhagia with irregular cycle- Primary Excessive or frequent menstruation Adenomyosis Endometriosis of uterus Dysmenorrhea Acute UTI- Primary Urinary tract infection, site not specified Moderate recurrent major depression (HCC) Major depressive disorder, recurrent episode, moderate DM (diabetes mellitus), type 2 with neurological complications (HCC) Type II or unspecified type diabetes mellitus with neurological manifestations, not stated as uncontrolled Ulcer of foot, right, limited to breakdown of skin (HCC) Neuropathy Mononeuritis of unspecified site Chronic bilateral low back pain with sciatica, sciatica laterality unspecified Class 2 severe obesity with serious comorbidity and body mass index (BMI) of 37.0 to 37.9 in adult, unspecified obesity type (HCC) documented in this encounter [facility] note* Diagnosis Depression Depressive disorder, not elsewhere classified Fibromyalgia Mylagia and myositis, unspecified Vitamin D deficiency Unspecified vitamin D deficiency Elevated AST (SGOT) Nonspecific elevation of levels of transaminase or lactic acid dehydrogenase (LDH) Screening for malignant neoplasm of breast Breast screening, unspecified Need for immunization against esnzuqlpio-saqeorl-xwlqxbvxe, combined (DTP) Need for prophylactic vaccination with combined vhyoffeofk-viawzmz-rmwmioesw (DTP) vaccine Arthritis Arthropathy, unspecified, site unspecified Mixed hyperlipidemia Obesity Obesity, unspecified Preoperative examination- Primary Preoperative examination, unspecified Ulnar neuropathy of right upper extremity Lesion of ulnar nerve Type 2 diabetes mellitus without complication, without long-term current use of insulin (HCC) Mixed hyperlipidemia WILTON on CPAP Obstructive sleep apnea (adult) (pediatric) Restless leg syndrome Restless legs syndrome (RLS) Neuropathy Mononeuritis of unspecified site Benign paroxysmal positional vertigo, unspecified laterality Hx-TIA (transient ischemic attack) Transient ischemic attack (TIA), and 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 residual deficits Aneurysm Aneurysm of unspecified site Gastroesophageal reflux disease without esophagitis Esophageal reflux Irritable bowel syndrome, unspecified type 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 Fibromyalgia Mylagia and myositis, unspecified Insomnia, unspecified type Anxiety and depression Dysthymic disorder Obesity (BMI 30-39.9) Obesity, unspecified Menorrhagia with irregular cycle- Primary Excessive or frequent menstruation Adenomyosis Endometriosis of uterus Dysmenorrhea 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 Ulcer of toe of right foot, with fat layer exposed (HCC) documented in this encounter [facility] note* Diagnosis Depression Depressive disorder, not elsewhere classified Fibromyalgia Mylagia and myositis, unspecified Vitamin D deficiency Unspecified vitamin D deficiency Elevated AST (SGOT) Nonspecific elevation of levels of transaminase or lactic acid dehydrogenase (LDH) Screening for malignant neoplasm of breast Breast screening, unspecified Need for immunization against vcscdkypmc-oglsmtw-jvgnigfhf, combined (DTP) Need for prophylactic vaccination with combined kdnsouaoko-lagudxd-fucdezqrc (DTP) vaccine Arthritis Arthropathy, unspecified, site unspecified Mixed hyperlipidemia Obesity Obesity, unspecified Preoperative examination- Primary Preoperative examination, unspecified Ulnar neuropathy of right upper extremity Lesion of ulnar nerve Type 2 diabetes mellitus without complication, without long-term current use of insulin (HCC) Mixed hyperlipidemia WILTON on CPAP Obstructive sleep apnea (adult) (pediatric) Restless leg syndrome Restless legs syndrome (RLS) Neuropathy Mononeuritis of unspecified site Benign paroxysmal positional vertigo, unspecified laterality Hx-TIA (transient ischemic attack) Transient ischemic attack (TIA), and 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 residual deficits Aneurysm Aneurysm of unspecified site Gastroesophageal reflux disease without esophagitis Esophageal reflux Irritable bowel syndrome, unspecified type 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 Fibromyalgia Mylagia and myositis, unspecified Insomnia, unspecified type Anxiety and depression Dysthymic disorder Obesity (BMI 30-39.9) Obesity, unspecified Menorrhagia with irregular cycle- Primary Excessive or frequent menstruation Adenomyosis Endometriosis of uterus Dysmenorrhea 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 Ulcer of toe of right foot, with fat layer exposed (HCC) [facility] Diagnosis Depression Depressive disorder, not elsewhere classified Fibromyalgia Mylagia and myositis, unspecified Vitamin D deficiency Unspecified vitamin D deficiency Elevated AST (SGOT) Nonspecific elevation of levels of transaminase or lactic acid dehydrogenase (LDH) Screening for malignant neoplasm of breast Breast screening, unspecified Need for immunization against kdauluieoo-iocbroa-pqexciwug, combined (DTP) Need for prophylactic vaccination with combined yipiwuzwbx-oysyaqa-ryvttmndl (DTP) vaccine Arthritis Arthropathy, unspecified, site unspecified Mixed hyperlipidemia Obesity Obesity, unspecified Preoperative examination- Primary Preoperative examination, unspecified Ulnar neuropathy of right upper extremity Lesion of ulnar nerve Type 2 diabetes mellitus without complication, without long-term current use of insulin (HCC) Mixed hyperlipidemia WILTON on CPAP Obstructive sleep apnea (adult) (pediatric) Restless leg syndrome Restless legs syndrome (RLS) Neuropathy Mononeuritis of unspecified site Benign paroxysmal positional vertigo, unspecified laterality Hx-TIA (transient ischemic attack) Transient ischemic attack (TIA), and 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 residual deficits Aneurysm Aneurysm of unspecified site Gastroesophageal reflux disease without esophagitis Esophageal reflux Irritable bowel syndrome, unspecified type 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 Fibromyalgia Mylagia and myositis, unspecified Insomnia, unspecified type Anxiety and depression Dysthymic disorder Obesity (BMI 30-39.9) Obesity, unspecified Menorrhagia with irregular cycle- Primary Excessive or frequent menstruation Adenomyosis Endometriosis of uterus Dysmenorrhea Acute intractable headache, unspecified headache type- Primary Chronic bilateral low back pain without sciatica TIA (transient ischemic attack) Unspecified transient cerebral ischemia Genitourinary syndrome of menopause Status post hysterectomy Acquired absence of both cervix and uterus Difficulty sleeping Sleep disturbance, unspecified Overactive bladder Hypertonicity of bladder [facility] Diagnosis Depression Depressive disorder, not elsewhere classified Fibromyalgia Mylagia and myositis, unspecified Vitamin D deficiency Unspecified vitamin D deficiency Elevated AST (SGOT) Nonspecific elevation of levels of transaminase or lactic acid dehydrogenase (LDH) Screening for malignant neoplasm of breast Breast screening, unspecified Need for immunization against ggvfytglmh-zqawiil-scektbfnz, combined (DTP) Need for prophylactic vaccination with combined wylqepdqfx-qmzspab-tduhbzsht (DTP) vaccine Arthritis Arthropathy, unspecified, site unspecified Mixed hyperlipidemia Obesity Obesity, unspecified Preoperative examination- Primary Preoperative examination, unspecified Ulnar neuropathy of right upper extremity Lesion of ulnar nerve Type 2 diabetes mellitus without complication, without long-term current use of insulin ([facility]) Mixed hyperlipidemia WILTON on CPAP Obstructive sleep apnea (adult) (pediatric) Restless leg syndrome Restless legs syndrome (RLS) Neuropathy Mononeuritis of unspecified site Benign paroxysmal positional vertigo, unspecified laterality Hx-TIA (transient ischemic attack) Transient ischemic attack (TIA), and 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 residual deficits Aneurysm Aneurysm of unspecified site Gastroesophageal reflux disease without esophagitis Esophageal reflux Irritable bowel syndrome, unspecified type 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 Fibromyalgia Mylagia and myositis, unspecified Insomnia, unspecified type Anxiety and depression Dysthymic disorder Obesity (BMI 30-39.9) Obesity, unspecified Menorrhagia with irregular cycle- Primary Excessive or frequent menstruation Adenomyosis Endometriosis of uterus Dysmenorrhea DM (diabetes mellitus), 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 Type II or unspecified type diabetes mellitus with neurological manifestations, not stated as uncontrolled Vitamin D deficiency Unspecified vitamin D deficiency Mixed hyperlipidemia [facility]* Diagnosis Depression Depressive disorder, not elsewhere classified Fibromyalgia Mylagia and myositis, unspecified Vitamin D deficiency Unspecified vitamin D deficiency Elevated AST (SGOT) Nonspecific elevation of levels of transaminase or lactic acid dehydrogenase (LDH) Screening for malignant neoplasm of breast Breast screening, unspecified Need for immunization against tgucwxgleb-qygbcat-naoyvmysu, combined (DTP) Need for prophylactic vaccination with combined ligmdmuoqp-tabqqmw-pvcafjblu (DTP) vaccine Arthritis Arthropathy, unspecified, site unspecified Mixed hyperlipidemia Obesity Obesity, unspecified Preoperative examination- Primary Preoperative examination, unspecified Ulnar neuropathy of right upper extremity Lesion of ulnar nerve Type 2 diabetes mellitus without complication, without long-term current use of insulin (HCC) Mixed hyperlipidemia WILTON on CPAP Obstructive sleep apnea (adult) (pediatric) Restless leg syndrome Restless legs syndrome (RLS) Neuropathy Mononeuritis of unspecified site Benign paroxysmal positional vertigo, unspecified laterality Hx-TIA (transient ischemic attack) Transient ischemic attack (TIA), and 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 residual deficits Aneurysm Aneurysm of unspecified site Gastroesophageal reflux disease without esophagitis Esophageal reflux Irritable bowel syndrome, unspecified type 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 Fibromyalgia Mylagia and myositis, unspecified Insomnia, unspecified type Anxiety and depression Dysthymic disorder Obesity (BMI 30-39.9) Obesity, unspecified Menorrhagia with irregular cycle- Primary Excessive or frequent menstruation Adenomyosis Endometriosis of uterus Dysmenorrhea Hot flash not due to menopause Flushing [facility] Diagnosis Depression Depressive disorder, not elsewhere classified Fibromyalgia Mylagia and myositis, unspecified Vitamin D deficiency Unspecified vitamin D deficiency Elevated AST (SGOT) Nonspecific elevation of levels of transaminase or lactic acid dehydrogenase (LDH) Screening for malignant neoplasm of breast Breast screening, unspecified Need for immunization against scjfekuvgq-padbmbj-oowezcdeg, combined (DTP) Need for prophylactic vaccination with combined ftoolvvhat-blfrgrg-jgxfgoxyk (DTP) vaccine Arthritis Arthropathy, unspecified, site unspecified Mixed hyperlipidemia Obesity Obesity, unspecified Preoperative examination- Primary Preoperative examination, unspecified Ulnar neuropathy of right upper extremity Lesion of ulnar nerve Type 2 diabetes mellitus without complication, without long-term current use of insulin (HCC) Mixed hyperlipidemia WILTON on CPAP Obstructive sleep apnea (adult) (pediatric) Restless leg syndrome Restless legs syndrome (RLS) Neuropathy Mononeuritis of unspecified site Benign paroxysmal positional vertigo, unspecified laterality Hx-TIA (transient ischemic attack) Transient ischemic attack (TIA), and 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 residual deficits Aneurysm Aneurysm of unspecified site Gastroesophageal reflux disease without esophagitis Esophageal reflux Irritable bowel syndrome, unspecified type 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 Fibromyalgia Mylagia and myositis, unspecified Insomnia, unspecified type Anxiety and depression Dysthymic disorder Obesity (BMI 30-39.9) Obesity, unspecified Menorrhagia with irregular cycle- Primary Excessive or frequent menstruation Adenomyosis Endometriosis of uterus Dysmenorrhea 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 Ulcer of toe of right foot, with fat layer exposed (HCC) Onychomycosis Dermatophytosis of nail Pain in toe of left foot Pain in limb Pain in toe of right foot Pain in limb Plantar wart of left foot [facility] Depression Depressive disorder, not elsewhere classified Fibromyalgia Mylagia and myositis, unspecified Vitamin D deficiency Unspecified vitamin D deficiency Elevated AST (SGOT) Nonspecific elevation of levels of transaminase or lactic acid dehydrogenase (LDH) Screening for malignant neoplasm of breast Breast screening, unspecified Need for immunization against phqvunmlcg-ddghyah-losfdhcoq, combined (DTP) Need for prophylactic vaccination with combined gerbayhflu-bllwhjc-xhrmqokaa (DTP) vaccine Arthritis Arthropathy, unspecified, site unspecified Mixed hyperlipidemia Obesity Obesity, unspecified Preoperative examination- Primary Preoperative examination, unspecified Ulnar neuropathy of right upper extremity Lesion of ulnar nerve Type 2 diabetes mellitus without complication, without long-term current use of insulin ([facility]) Mixed hyperlipidemia WILTON on CPAP Obstructive sleep apnea (adult) (pediatric) Restless leg syndrome Restless legs syndrome (RLS) Neuropathy Mononeuritis of unspecified site Benign paroxysmal positional vertigo, unspecified laterality Hx-TIA (transient ischemic attack) Transient ischemic attack (TIA), and 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 residual deficits Aneurysm Aneurysm of unspecified site Gastroesophageal reflux disease without esophagitis Esophageal reflux Irritable bowel syndrome, unspecified type 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 Fibromyalgia Mylagia and myositis, unspecified Insomnia, unspecified type Anxiety and depression Dysthymic disorder Obesity (BMI 30-39.9) Obesity, unspecified Menorrhagia with irregular cycle- Primary Excessive or frequent menstruation Adenomyosis Endometriosis of uterus Dysmenorrhea Ulcer of toe of right foot, with fat layer exposed (HCC)- Primary Plantar wart of right foot Plantar wart [facility] Diagnosis Depression Depressive disorder, not elsewhere classified Fibromyalgia Mylagia and myositis, unspecified Vitamin D deficiency Unspecified vitamin D deficiency Elevated AST (SGOT) Nonspecific elevation of levels of transaminase or lactic acid dehydrogenase (LDH) Screening for malignant neoplasm of breast Breast screening, unspecified Need for immunization against zmnejoiday-varugsn-oyemetwxj, combined (DTP) Need for prophylactic vaccination with combined aociputchw-mgpqobc-uzjdhwrkx (DTP) vaccine Arthritis Arthropathy, unspecified, site unspecified Mixed hyperlipidemia Obesity Obesity, unspecified Preoperative examination- Primary Preoperative examination, unspecified Ulnar neuropathy of right upper extremity Lesion of ulnar nerve Type 2 diabetes mellitus without complication, without long-term current use of insulin (HCC) Mixed hyperlipidemia WILTON on CPAP Obstructive sleep apnea (adult) (pediatric) Restless leg syndrome Restless legs syndrome (RLS) Neuropathy Mononeuritis of unspecified site Benign paroxysmal positional vertigo, unspecified laterality Hx-TIA (transient ischemic attack) Transient ischemic attack (TIA), and 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 residual deficits Aneurysm Aneurysm of unspecified site Gastroesophageal reflux disease without esophagitis Esophageal reflux Irritable bowel syndrome, unspecified type 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 Fibromyalgia Mylagia and myositis, unspecified Insomnia, unspecified type Anxiety and depression Dysthymic disorder Obesity (BMI 30-39.9) Obesity, unspecified Menorrhagia with irregular cycle- Primary Excessive or frequent menstruation Adenomyosis Endometriosis of uterus Dysmenorrhea Ulcer of toe of right foot, with fat layer exposed (HCC)- Primary Plantar wart of right foot Plantar wart [facility] Diagnosis Depression Depressive disorder, not elsewhere classified Fibromyalgia Mylagia and myositis, unspecified Vitamin D deficiency Unspecified vitamin D deficiency Elevated AST (SGOT) Nonspecific elevation of levels of transaminase or lactic acid dehydrogenase (LDH) Screening for malignant neoplasm of breast Breast screening, unspecified Need for immunization against fhfuhteuhb-xjjhzgw-kuwhihtnm, combined (DTP) Need for prophylactic vaccination with combined shxdwtqznv-bvotimw-bkrhiwdsz (DTP) vaccine Arthritis Arthropathy, unspecified, site unspecified Mixed hyperlipidemia Obesity Obesity, unspecified Preoperative examination- Primary Preoperative examination, unspecified Ulnar neuropathy of right upper extremity Lesion of ulnar nerve Type 2 diabetes mellitus without complication, without long-term current use of insulin (HCC) Mixed hyperlipidemia WILTON on CPAP Obstructive sleep apnea (adult) (pediatric) Restless leg syndrome Restless legs syndrome (RLS) Neuropathy Mononeuritis of unspecified site Benign paroxysmal positional vertigo, unspecified laterality Hx-TIA (transient ischemic attack) Transient ischemic attack (TIA), and 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 residual deficits Aneurysm Aneurysm of unspecified site Gastroesophageal reflux disease without esophagitis Esophageal reflux Irritable bowel syndrome, unspecified type 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 Fibromyalgia Mylagia and myositis, unspecified Insomnia, unspecified type Anxiety and depression Dysthymic disorder Obesity (BMI 30-39.9) Obesity, unspecified Menorrhagia with irregular cycle- Primary Excessive or frequent menstruation Adenomyosis Endometriosis of uterus Dysmenorrhea Chronic pain of right ankle [facility] Diagnosis Depression Depressive disorder, not elsewhere classified Fibromyalgia Mylagia and myositis, unspecified Vitamin D deficiency Unspecified vitamin D deficiency Elevated AST (SGOT) Nonspecific elevation of levels of transaminase or lactic acid dehydrogenase (LDH) Screening for malignant neoplasm of breast Breast screening, unspecified Need for immunization against mhmpacoahm-djxyagq-djxqhgklv, combined (DTP) Need for prophylactic vaccination with combined laqmpytavn-jcwzbrx-bdukuymop (DTP) vaccine Arthritis Arthropathy, unspecified, site unspecified Mixed hyperlipidemia Obesity Obesity, unspecified Preoperative examination- Primary Preoperative examination, unspecified Ulnar neuropathy of right upper extremity Lesion of ulnar nerve Type 2 diabetes mellitus without complication, without long-term current use of insulin (HCC) Mixed hyperlipidemia WILTON on CPAP Obstructive sleep apnea (adult) (pediatric) Restless leg syndrome Restless legs syndrome (RLS) Neuropathy Mononeuritis of unspecified site Benign paroxysmal positional vertigo, unspecified laterality Hx-TIA (transient ischemic attack) Transient ischemic attack (TIA), and 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 residual deficits Aneurysm Aneurysm of unspecified site Gastroesophageal reflux disease without esophagitis Esophageal reflux Irritable bowel syndrome, unspecified type 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 Fibromyalgia Mylagia and myositis, unspecified Insomnia, unspecified type Anxiety and depression Dysthymic disorder Obesity (BMI 30-39.9) Obesity, unspecified Menorrhagia with irregular cycle- Primary Excessive or frequent menstruation Adenomyosis Endometriosis of uterus Dysmenorrhea Chronic pain of right ankle- Primary 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) Charcot's joint, right ankle and foot Plantar wart documented in this encounter [facility] course Narrative No data available for this section [facility] Discharge instructions No data available for this section [facility] note No data available for this section [facility] Reason for referral (narrative)* Diagnostic Procedure Only (Routine) - Closed Specialty Diagnoses / Procedures Referred By Contac t Referred To Contact [facility] Diagnoses Encounter for gynecological examination (general) (routine) without abnormal findings Encounter for screening mammogram for breast cancer Procedures GIGI SCREENING W FARIDEH SCREENING BREAST DGTL FARIDEH UNI/BILAT ADD ON SCREENING MAMMOGRAPHY BI 2-VIEW BREAST INC Jing Araujo APRN.CNM [address] [place] [address] [facility] [address] [place] [address] Referral ID Status Reason Start Date Expiration Date V isits Requested Visits Authorized Closed Auto-Generate d Referral 11/15/2020 12/15/2021 1 1 [facility] for referral (narrative)* Diagnostic Procedure Only (Routine) - Closed Specialty Diagnoses / Procedures Referred By Margaret ivey Referred To Contact [facility] IMAG[facility] Diagnoses Right flank pain Procedures US KIDNEY/BLADDER US RETROPERITONEAL REAL TIME W/IMAGE COMPLETE [address] [place] [address] [facility] Referral ID Status Reason Start Date Expiration Date V isits Requested Visits Authorized [id number] Closed Auto-Generate d Referral 12/23/2021 01/22/2023 1 1 [facility] for referral (narrative)* Diagnostic Procedure Only (Routine) - Closed Specialty Diagnoses / Procedures Referred By Margaret t Referred To Contact XR IMAGING Diagnoses Pain Procedures XR FOOT GENERAL 3V AP/LAT/OBL RIGHT RADEX FOOT COMPLETE MINIMUM 3 VIEWS Thalia Belcher PA-C [address] [place] [address] X[facility] Imaging Referral ID Status Reason Start Date Expiration Date V isits Requested Visits Authorized [id number] Closed Auto-Generate d Referral 12/19/2021 01/18/2023 1 1 [facility] for referral (narrative)* Outpatient Procedure (Routine) - Pending Review Specialty Diagnoses / Procedures Referred By Margaret ivey Referred To Contact [facility] Diagnoses Family history of colon cancer in father Screening for colon cancer Change in bowel habits Procedures COLONOSCOPY DIAGNOSTIC COLONOSCOPY FLX DX W/COLLJ SPEC WHEN Jt Chanel MD [address] [place] [address] [place] [address] Referral ID Status Reason Start Date Expiration Date Visits Requested Visits Authorized [id number] Pending Review Auto-Generat ed Referral 07/17/2022 07/18/2023 1 1 * Outpatient Procedure (Routine) - Pending Review Specialty Diagnoses / Procedures Referred By Margaret ivey Referred To Contact [facility] [place] Diagnoses Family history of colon cancer in father Change in bowel habits Bloating Procedures EGD DIAGNOSTIC ESOPHAGOGASTRODUODENOSC OPY TRANSORAL DIAGNOSTIC Jt Evans MD [address] [place] [address] [place] [address] Referral ID Status Reason Start Date Expiration Date Visits Requested Visits Authorized [id number] Pending Review Auto-Generat ed Referral 07/17/2022 07/18/2023 1 1 [facility] for referral (narrative)* Outpatient Procedure (Routine) - Closed Specialty Diagnoses / Procedures Referred By Margaret ivey Referred To Contact [facility] [place] Diagnoses Family history of colon cancer in father Screening for colon cancer Change in bowel habits Procedures COLONOSCOPY DIAGNOSTIC COLONOSCOPY FLX DX W/COLLJ SPEC WHEN PFRMD Jt Evans MD [address] [place] [address] [address] Referral ID Status Reason Start Date Expiration Date V isits Requested Visits Authorized [id number] Closed Auto-Generate d Referral 07/17/2022 07/18/2023 1 1 * Outpatient Procedure (Routine) - Closed Specialty Diagnoses / Procedures Referred By Margaret ivey Referred To Contact [facility] Diagnoses Family history of colon cancer in father Change in bowel habits Bloating Procedures EGD DIAGNOSTIC ESOPHAGOGASTRODUODENOSC OPY TRANSORAL DIAGNOSTIC Jt Evans MD [address] [place] [address] [address] Referral ID Status Reason Start Date Expiration Date V isits Requested Visits Authorized [id number] Closed Auto-Generate d Referral 07/17/2022 07/18/2023 1 1 [facility] for referral (narrative)* Outpatient Procedure (Routine) - Pending Review Specialty Diagnoses / Procedures Referred By Margaret ivey Referred To Contact [facility] Diagnoses Encounter for IUD removal Malpositioned intrauterine device (IUD), initial encounter Procedures REMOVE INTRAUTERINE DEVICE REMOVE INTRAUTERINE DEVICE Corie Jefferson APRN.CNP [address] [place] [address] [facility] [address] [place] [address] Referral ID Status Reason Start Date Expiration Date Visits Requested Visits Authorized [id number] Pending Review Auto-Generat ed Referral 11/07/2022 11/07/2023 1 1 [facility] for referral (narrative)* Diagnostic Procedure Only (Routine) - Closed Specialty Diagnoses / Procedures Referred By Contac t Referred To Contact XR IMAGING Diagnoses DM (diabetes mellitus), type 2 with neurological complications (HCC) Charcot ankle, left Charcot ankle, right Procedures XR ANKLE GENERAL 3V AP/LAT/OBL BILATERAL RADEX ANKLE COMPLETE MINIMUM 3 VIEWS Charlie [address]zo[address] [place] [address] [place] [address] Referral ID Status Reason Start Date Expiration Date V isits Requested Visits Authorized [id number] Closed Auto-Generate d Referral 11/17/2022 12/17/2023 1 1 * Diagnostic Procedure Only (Routine) - Closed Specialty Diagnoses / Procedures Referred By Contac t Referred To Contact XR IMAGING Diagnoses DM (diabetes mellitus), type 2 with neurological complications (HCC) Charcot ankle, left Charcot ankle, right Procedures XR FOOT GENERAL 3V AP/LAT/OBL BILATERAL RADEX FOOT COMPLETE MINIMUM 3 VIEWS Charlie [address] [place] [address] [place] [address] Referral ID Status Reason Start Date Expiration Date V isits Requested Visits Authorized [id number] Closed Auto-Generate d Referral 11/17/2022 12/17/2023 1 1 [facility] for referral (narrative)* Diagnostic Procedure Only (Routine) - Closed Specialty Diagnoses / Procedures Referred By Contac t Referred To Contact XR IMAGING Diagnoses Diabetic ulcer of heel associated with diabetes mellitus due to underlying condition, with fat layer exposed, unspecified laterality (HCC) Charcot ankle, right Procedures XR FOOT GENERAL 3V AP/LAT/OBL RIGHT RADEX FOOT COMPLETE MINIMUM 3 VIEWS Charlie Rizzo [address] [place] [address] [place] [address] Referral ID Status Reason Start Date Expiration Date V isits Requested Visits Authorized [id number] Closed Auto-Generate d Referral 12/09/2022 01/08/2024 1 1 [facility] for referral (narrative)* Diagnostic Procedure Only (Routine) - Closed Specialty Diagnoses / Procedures Referred By Edyac t Referred To Contact [facility] Diagnoses Encounter for screening mammogram for breast cancer Procedures GIGI SCREENING W FARIDEH SCREENING DIGITAL BREAST TOMOSYNTHESIS BI SCREENING MAMMOGRAPHY BI 2-VIEW BREAST INC Anne-Marie Chahal APRN.[employer]TR[employer] SERVICES WORKER [address] [place] [address] [facility] [address] [place] [address] Referral ID Status Reason Start Date Expiration Date V isits Requested Visits Authorized [id number] Closed Auto-Generate d Referral 06/17/2022 07/17/2023 1 1 [facility] for referral (narrative)* Diagnostic Procedure Only (Routine) - Closed Specialty Diagnoses / Procedures Referred By Margaret t Referred To Contact [facility] IMAG[facility] Diagnoses Suprapubic pain Procedures US PELVIS BLADDER US PELVIC NONOBSTETRIC IMAGE DCMTN LIMITED/F/U Pedro Patricia APRN.[employer] WORKER [address] [place] [address] [place] [address] Referral ID Status Reason Start Date Expiration Date V isits Requested Visits Authorized [id number] Closed Auto-Generate d Referral 10/28/2022 11/27/2023 1 1 * Diagnostic Procedure Only (Routine) - Closed Specialty Diagnoses / Procedures Referred By Margaret t Referred To Contact [facility] IM[facility] Diagnoses Suprapubic pain Procedures US FEMALE PELVIS TRANSVAG US TRANSVAGINAL Pedro Patricia APRN.CNP [address] [place] [address] [place] [address] Referral ID Status Reason Start Date Expiration Date V isits Requested Visits Authorized [id number] Closed Auto-Generate d Referral 10/28/2022 11/27/2023 1 1 * Diagnostic Procedure Only (Routine) - Closed Specialty Diagnoses / Procedures Referred By Contac t Referred To Contact [facility] IMAG[facility] Diagnoses Suprapubic pain Procedures US FEMALE PELVIS TRANSABD LTD US PELVIC NONOBSTETRIC IMAGE DCMTN LIMITED/F/U Pedro Patricia APRN.[employer] WORKER [address] [place] [address] [place] [address] Referral ID Status Reason Start Date Expiration Date V isits Requested Visits Authorized [id number] Closed Auto-Generate d Referral 10/28/2022 11/27/2023 1 1 [facility] for referral (narrative)* Diagnostic Procedure Only (Routine) - Closed Specialty Diagnoses / Procedures Referred By Contac t Referred To Contact XR IMAGING Diagnoses Diabetic ulcer of heel associated with diabetes mellitus due to underlying condition, with fat layer exposed, unspecified laterality (HCC) Charcot ankle, right Procedures XR FOOT GENERAL 3V AP/LAT/OBL RIGHT RADEX FOOT COMPLETE MINIMUM 3 VIEWS Charlie Rizzo [address] [place] [address] [place] [address] Referral ID Status Reason Start Date Expiration Date V isits Requested Visits Authorized [id number] Closed Auto-Generate d Referral 12/09/2022 01/08/2024 1 1 [facility] for referral (narrative)* Diagnostic Procedure Only (Routine) - Closed Specialty Diagnoses / Procedures Referred By Contac t Referred To Contact XR IMAGING Diagnoses Chronic right shoulder pain Procedures XR SHOULDER [id number] AP/TRUE AP RIGHT RADEX SHOULDER COMPLETE MINIMUM 2 VIEWS Pedro Patricia APRN.[employer] WORKER [address] [place] [address] [place] [address] Referral ID Status Reason Start Date Expiration Date V isits Requested Visits Authorized [id number] Closed Auto-Generate d Referral 01/26/2023 02/25/2024 1 1 * Diagnostic Procedure Only (Routine) - Closed Specialty Diagnoses / Procedures Referred By Contac t Referred To Contact XR IMAGING Diagnoses Acute bilateral low back pain without sciatica Procedures XR LUMBAR GENERAL 3V AP/LAT/L5-S1 RADEX SPINE LUMBOSACRAL 2/3 VIEWS Pedro Patricia APRN.[employer] WORKER [address] [place] [address] [place] [address] Referral ID Status Reason Start Date Expiration Date V isits Requested Visits Authorized [id number] Closed Auto-Generate d Referral 01/26/2023 02/25/2024 1 1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 with radiculopathy, cervical region Procedures MRI CERVICAL SPINE WO IVCON MRI SPINAL CANAL CERVICAL W/O CONTRAST Serenity Hemphill APRN.NUTRITION SERVICES WORKER [address] [place] [address] [place] [address] Referral ID Status Reason Start Date Expiration Date Visits Requested Visits Authorized [id number] Authorized Auto-Generat ed Referral 11/05/2023 12/04/2024 1 1 Specialty Diagnoses / Procedures Referred By Contac t Referred To Contact Ent - Otolaryngology Diagnoses WILTON on CPAP Procedures CONSULT TO ENT OFFICE/OUTPATIENT [facility] 60 MINUTES Pedro Patricia APRN.NUTRITION SERVICES WORKER [address] [place] [address] Referral ID Status Reason Start Date Expiration Date Visits Requested Visits Authorized [id number] Authorized PCP Requested Referral 10/09/2023 10/08/2024 1 1 Specialty Diagnoses / Procedures Referred By Contac t Referred To Contact XR IMAGING Diagnoses Lumbar pain Skin sensation disturbance Procedures XR LUMBAR GENERAL 3V AP/LAT/L5-S1 RADEX SPINE LUMBOSACRAL 2/3 VIEWS Pedro Patricia APRN.NUTRITION SERVICES WORKER [address] [place] [address] [place] [address] Referral ID Status Reason Start Date Expiration Date V isits Requested Visits Authorized [id number] Closed Auto-Generate d Referral 10/09/2023 11/07/2024 1 1 Specialty Diagnoses / Procedures Referred By Contac t Referred To Contact XR IMAGING Diagnoses Skin sensation disturbance Procedures XR HIP GENERAL 3V PELV/AP/LAT LEFT RADEX HIP UNILATERAL WITH PELVIS 2-3 VIEWS Pedro Patricia APRN.NUTRITION SERVICES WORKER [address] [place] [address] [place] [address] Referral ID Status Reason Start Date Expiration Date V isits Requested Visits Authorized [id number] Closed Auto-Generate d Referral 10/09/2023 11/07/2024 1 1 Specialty Diagnoses / Procedures Referred By Contac t Referred To Contact Diagnoses Type 2 diabetes mellitus without complication, without long-term current use of insulin (HCC) Pedro Patricia APRN.NUTRITION SERVICES WORKER [address] [place] [address] Referral ID Status Reason Start Date Expiration Date V isits Requested Visits Authorized [id number] Pending Review 1 1 Specialty Diagnoses / Procedures Referred By Contac t Referred To Contact Diagnoses DM (diabetes mellitus), type 2 with neurological complications (HCC) Obesity (BMI 30-39.9) Lulu Luciano MD [address] [place] [address] Referral ID Status Reason Start Date Expiration Date V isits Requested Visits Authorized [id number] Pending Review 1 1 Specialty Diagnoses / Procedures Referred By Contac t Referred To Contact [facility] Diagnoses Cervical myofascial pain syndrome DDD (degenerative disc disease), cervical Procedures CONSULT TO PHYSICAL THERAPY PHYSICAL THERAPY EVALUATION [facility] 45 MINS Edgar Montejo MD [address] [facility] [place] [address] [facility] [address] [place] [address] Referral ID Status Reason Start Date Expiration Date Visits Requested Visits Authorized [id number] Authorized Auto-Generat ed Referral 03/23/2023 03/22/2024 20 20 Specialty Diagnoses / Procedures Referred By Contac t Referred To Contact Spine [facility] Diagnoses Paresthesia Weakness Osteoarthritis of spine with radiculopathy, cervical region Procedures CONSULT TO [facility] OFFICE/OUTPATIENT [facility] 60 MINUTES Pedro Patricia APRN.NUTRITION SERVICES WORKER [address] [place] [address] Referral ID Status Reason Start Date Expiration Date Visits Requested Visits Authorized [id number] Authorized PCP Requested Referral 05/05/2023 05/04/2024 1 1 Specialty Diagnoses / Procedures Referred By Contac t Referred To Contact MR IMAGING Diagnoses Chronic right shoulder pain Procedures MRI SHOULDER WO IVCON RIGHT MRI ANY JT UPPER EXTREMITY W/O CONTRAST MATRL Pedro Patricia APRN.NUTRITION SERVICES WORKER [address] [place] [address] [place] [address] Referral ID Status Reason Start Date Expiration Date V isits Requested Visits Authorized [id number] Closed Auto-Generate d Referral 04/06/2023 05/05/2024 1 1 Specialty Diagnoses / Procedures Referred By Contac t Referred To Contact Lulu Luciano MD [address] [place] [address] Referral ID Status Reason Start Date Expiration Date Visits Re quested Visits Authorized [id number] Closed 1 1 Specialty Diagnoses / Procedures Referred By Contac t Referred To Contact Podiatry Diagnoses DM (diabetes mellitus), type 2 with neurological complications (HCC) Procedures CONSULT TO PODIATRY OFFICE/OUTPATIENT [facility] MDM 60-74 MINUTES Pedro Patricia APRN.NUTRITION SERVICES WORKER [address] [place] [address] Referral ID Status Reason Start Date Expiration Date Visits Requested Visits Authorized [id number] Pending Review PCP Requested Referral 10/28/2022 10/28/2023 1 1 Specialty Diagnoses / Procedures Referred By Contac t Referred To Contact [facility] Diagnoses Benign paroxysmal positional vertigo, unspecified laterality 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 Chronic left shoulder pain Procedures CONSULT TO PHYSICAL THERAPY PHYSICAL THERAPY EVALUATION HIGH COMPLEX 45 MINS Pedro Patricia APRN.NUTRITION SERVICES WORKER [address] [place] [address] [facility] [address] [place] [address] Referral ID Status Reason Start Date Expiration Date Visits Requested Visits Authorized [id number] Pending Review Auto-Generat ed Referral 10/28/2022 10/28/2023 1 1 Specialty Diagnoses / Procedures Referred By Contac t Referred To Contact US IMAGING Diagnoses Suprapubic pain Procedures US PELVIS BLADDER US PELVIC NONOBSTETRIC IMAGE DCMTN LIMITED/F/U Pedro Patricia MARBLE WORKER.NUTRITION SERVICES WORKER [address] [place] [address] Us Imaging Referral ID Status Reason Start Date Expiration Date Visits Requested Visits Authorized [id number] Authorized Auto-Generat ed Referral 10/28/2022 11/27/2023 1 1 Specialty Diagnoses / Procedures Referred By Contac t Referred To Contact US IMAGING Diagnoses Suprapubic pain Procedures US FEMALE PELVIS TRANSVAG US TRANSVAGINAL Pedro Patricia MARBLE WORKER.NUTRITION SERVICES WORKER [address] [place] [address] Us Imaging Referral ID Status Reason Start Date Expiration Date Visits Requested Visits Authorized [id number] Authorized Auto-Generat ed Referral 10/28/2022 11/27/2023 1 1 Specialty Diagnoses / Procedures Referred By Contac t Referred To Contact US IMAGING Diagnoses Suprapubic pain Procedures US FEMALE PELVIS TRANSABD LTD US PELVIC NONOBSTETRIC IMAGE DCMTN LIMITED/F/U Pedro Patricia MARBLE WORKER.NUTRITION SERVICES WORKER [address] [place] [address] Us Imaging Referral ID Status Reason Start Date Expiration Date Visits Requested Visits Authorized [id number] Authorized Auto-Generat ed Referral 10/28/2022 11/27/2023 1 1 Specialty Diagnoses / Procedures Referred By Contac t Referred To Contact Diagnoses Class 2 severe obesity with serious comorbidity and body mass index (BMI) of 39.0 to 39.9 in adult, unspecified obesity type (HCC) Procedures CONSULT [facility] OFFICE/OUTPATIENT [facility] 60-74 MINUTES Anne-Marie Gilliam, MARBLE WORKER.NUTRITION SERVICES WORKER [address] [place] [address] Referral ID Status Reason Start Date Expiration Date Visits Requested Visits Authorized [id number] Pending Review PCP Requested Referral 06/17/2022 06/17/2023 1 1 Specialty Diagnoses / Procedures Referred By Contac t Referred To Contact US IMAGING Diagnoses Pelvic pain in female Breakthrough bleeding associated with intrauterine device (IUD) Procedures US FEMALE PELVIS TRANSVAG US TRANSVAGINAL Anne-Marie Gilliam APRN.NUTRITION SERVICES WORKER [address] [place] [address] Us Imaging Referral ID Status Reason Start Date Expiration Date Visits Requested Visits Authorized [id number] Authorized Auto-Generat ed Referral 06/17/2022 07/17/2023 1 1 Specialty Diagnoses / Procedures Referred By Contac t Referred To Contact [facility] Diagnoses Pelvic pain in female Breakthrough bleeding associated with intrauterine device (IUD) Procedures PELVIC US WHI US PELVIC NONOBSTETRIC REAL-TIME IMAGE COMPLETE Anne-Marie Gilliam APRN.NUTRITION SERVICES WORKER [address] [place] [address] [facility] [address] [place] [address] Referral ID Status Reason Start Date Expiration Date Visits Requested Visits Authorized [id number] Pending Review Auto-Generat ed Referral 06/17/2022 06/17/2023 1 1 Specialty Diagnoses / Procedures Referred By Contac t Referred To Contact [facility] Diagnoses Encounter for screening mammogram for breast cancer Procedures GIGI SCREENING W FARIDEH SCREENING DIGITAL BREAST TOMOSYNTHESIS BI SCREENING MAMMOGRAPHY BI 2-VIEW BREAST INC CAD Anne-Marie Gilliam APRN.NUTRITION SERVICES WORKER [address] [place] [address] [facility] [address] [place] [address] Referral ID Status Reason Start Date Expiration Date Visits Requested Visits Authorized [id number] Authorized Auto-Generat ed Referral 06/17/2022 07/17/2023 1 1 Specialty Diagnoses / Procedures Referred By Contac t Referred To Contact [facility] Diagnoses 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 Procedures CONSULT TO PHYSICAL THERAPY PHYSICAL THERAPY EVALUATION HIGH COMPLEX 45 MINS Anca Wood MD [address] [address] [facility] [place] [address] Referral ID Status Reason Start Date Expiration Date Visits Requested Visits Authorized [id number] Pending Review Auto-Generat ed Referral 2 01/31/2023 1 1 Specialty Diagnoses / Procedures Referred By Contac t Referred To Contact Diagnoses Restless leg syndrome Obesity (BMI 30-39.9) Procedures CONSULT TO SLEEP MEDICINE - ADULT OFFICE/OUTPATIENT [facility] 60-74 MINUTES Anca Wood MD [address] [address] Referral ID Status Reason Start Date Expiration Date Visits Requested Visits Authorized [id number] Pending Review PCP Requested Referral 2 01/31/2023 1 1 Chief Complaint and Reason for Visit Chief Complaint wound wound ROBERTS/RIGHT EAR PAIN Reason for Visit Callus of toe Foot deformity Neuropathy of both feet Right otitis media Chief Complaint POST FALL/LEFT SHOUL YINKA INJURY EORDER- LEFT SHOULDER-injury Reason for Visit Contusion of left sh oulder Left shoulder strain Chief Complaint Admit Date BILAT EAR PAIN January 27, 2024 1 1:57am HEADACHE, EAR PAIN February 25, 2024 1 0:37am Hysterectomy,TLH, bilateral salingectomy April 15, 2024 7:45am PRE OP May 19, 2024 9:49am PRE OP May 26, 2024 10:2 2am Reason for Visit Admit Date Acute sinusitis February 25, 2024 1 0:37am Adhesion of omentum April 15, 2024 7 :45am Adenomyosis April 15, 2024 7 :45am Dysmenorrhea April 15, 2024 7 :45am Menorrhagia with irregular cycle April 15, 2024 7:45am Chief Complaint Admit Date Hysterectomy,TLH, bilateral salingectomy April 15, 2024 7:45am PRE OP May 19, 2024 9:49am PRE OP May 26, 2024 10:2 2am Left leg pain July 06, 2024 6:0 2pm Reason for Visit Admit Date Adhesion of omentum Leonarda 24th, 2025 7 :45am Adenomyosis April 15, 2024 7 :45am Dysmenorrhea April 15, 2024 7 :45am Menorrhagia with irregular cycle April 15, 2024 7:45am Medications Administered Section Inactive Administered Medications - up to 3 most recent administrations Medication Order MAR Action Action Date Dose Rate Site aluminum-magnesium hydroxide-simethicone 200-200-20 mg/5 mL 30 mL 30 mL, ORAL, EVERY 6 HOURS NEEDED, Starting on Thu09/15/22 at 1526, Until Thu09/16/22 at 0425, GI upset, SHAKE WELL, Recovery or Phase I (only) Given 09/15/2022 3:43 PM EDT 30 mL lactated ringers iv infusion 30 mL/hr, INTRAVENOUS, CONTINUOUS, Starting on Thu09/15/22 at 1400, Until Thu09/15/22 at 1456, Preprocedure Restarted 09/15/2022 2:10 PM EDT New Bag/Syringe/Bottle 09/15/2022 2:07 PM EDT 30 mL/hr 3 0 mL/hr Additional Source Comments INFORMATION SOURCE (unrecogn ized section and content) DATE CREATED AUTHOR 06/09/2020 [employer] DATE CREATED AUTHOR AUTHOR'S ORGANIZ ATION 02/14/2021 [facility] DATE CREATED AUTHOR AUTHOR'S ORGANIZ ATION 05/18/2021 [facility] DATE CREATED AUTHOR AUTHOR'S ORGANIZ ATION 12/23/2021 [facility] DATE CREATED AUTHOR AUTHOR'S ORGANIZ ATION 07/10/2023 [facility] ([place]) DATE CREATED AUTHOR AUTHOR'S ORGANIZ ATION 09/17/2023 [facility] DATE CREATED AUTHOR AUTHOR'S ORGANIZ ATION 01/10/2024 [facility] DATE CREATED AUTHOR AUTHOR'S ORGANIZ ATION 11/04/2024 [facility] DATE CREATED AUTHOR AUTHOR'S ORGANIZ ATION 12/06/2024 [facility] DATE CREATED AUTHOR AUTHOR'S ORGANIZ ATION 01/29/2025 [facility] DATE CREATED AUTHOR AUTHOR'S ORGANIZ ATION 02/02/2025 [facility] Care Teams (unrecognized sec tion and content) Social And Human Services Assistant Relationship Specialty Start Date End Date Lulu Luciano [address] [facility] [place] [address] PCP - General Internal Medicine 06/02/19 Dr Nicole Rodriguez, [place] Orthopedic Surgeon 06/06/19 Sleep Specialist Sleep Medicine 06/06/19 Dr Roxana [place], [place] Neurologist 06/06/19 Social And Human Services Assistant Relationship Specialty Start Date End Date Lulu Luciano [address] [facility] [place] [address] PCP - General Internal Medicine 06/02/19 Dr Nicole Rodriguez, [place] Orthopedic Surgeon 06/06/19 Sleep Specialist Sleep Medicine 06/06/19 Dr Roxana Rodriguez, [place] Neurologist 06/06/19 Social And Human Services Assistant Relationship Specialty Start Date End Date Lulu Luciano [address] [place] [address] PCP - General Internal Medicine 06/02/19 Dr Nicole Rodriguez, [place] Orthopedic Surgeon 06/06/19 Sleep Specialist Sleep Medicine 06/06/19 Dr Roxana Rodriguez, [place] Neurologist 06/06/19 Social And Human Services Assistant Relationship Specialty Start Date End Date Lulu Luciano MD [address] [facility] [place] [address] PCP - General 06/03/06 Vensesa Wiley, [facility] [address] [facility] [place] [address] Pharmacist Pharmacy 10/06/19 Social And Human Services Assistant Relationship Specialty Start Date End Date Lulu Luciano MD [address] [facility] [place] [address] PCP - General 06/03/06 Venessa Wiley, [facility] [address] [facility] [place] [address] Pharmacist Pharmacy 10/06/19 Social And Human Services Assistant Relationship Specialty Start Date End Date Lulu Luciano MD [address] [facility] [place] [address] PCP - General 06/03/06 [facility] [address] [facility] [place] [address] Pharmacist Pharmacy 10/06/19 Social And Human Services Assistant Relationship Specialty Start Date End Date Lulu Luciano MD [address] [facility] [place] [address] PCP - General 06/03/06 [facility] [address] [facility] [place] [address] Pharmacist Pharmacy 10/06/19 Social And Human Services Assistant Relationship Specialty Start Date End Date Lulu Luciano MD [address] [facility] [place] [address] PCP - General 06/03/06 [facility] [address] [facility] [place] [address] Pharmacist Pharmacy 10/06/19 Social And Human Services Assistant Relationship Specialty Start Date End Date Lulu Luciano MD [address] [facility] [place] [address] PCP - General 06/03/06 [facility] [address] [facility] [place] [address] Pharmacist Pharmacy 10/06/19 Social And Human Services Assistant Relationship Specialty Start Date End Date Star Gonzales MD [address] [place] [address] PCP - General Internal Medicine 10/17/21 Venessa Wiley [facility] [address] [facility] [place] [address] Pharmacist Pharmacy 10/06/19 Social And Human Services Assistant Relationship Specialty Start Date End Date Star Gonzales MD [address] [place] [address] PCP - General Internal Medicine 10/17/21 Venessa Wiley, [facility] [address] [facility] [place] [address] Pharmacist Pharmacy 10/06/19 Social And Human Services Assistant Relationship Specialty Start Date End Date Star Gonzales MD [address] [place] [address] PCP - General Internal Medicine 10/17/21 [facility] [address] [facility] [place] [address] Pharmacist Pharmacy 10/06/19 Social And Human Services Assistant Relationship Specialty Start Date End Date Star Gonzales MD [address] [place] [address] PCP - General Internal Medicine 10/17/21 Venessa Wiley, [facility] [address] [facility] [place] [address] Pharmacist Pharmacy 10/06/19 Social And Human Services Assistant Relationship Specialty Start Date End Date Star Gonzales MD [address] [place] [address] PCP - General Internal Medicine 10/17/21 [facility] [address] [facility] [place] [address] Pharmacist Pharmacy 10/06/19 Social And Human Services Assistant Relationship Specialty Start Date End Date Star Gonzales MD [address] [place] [address] PCP - General Internal Medicine 10/17/21 JoshVenessa phelps, [facility] [address] [facility] [place] [address] Pharmacist Pharmacy 10/06/19 Social And Human Services Assistant Relationship Specialty Start Date End Date Star Gonzales MD [address] [place] [address] PCP - General Internal Medicine 10/17/21 JoshVenessa phelps, [facility] [address] [facility] [place] [address] Pharmacist Pharmacy 10/06/19 Social And Human Services Assistant Relationship Specialty Start Date End Date Star Gonzales MD [address] [place] [address] PCP - General Internal Medicine 10/17/21 JoshmattieKenrickkash, [facility] [address] [facility] [place] [address] Pharmacist Pharmacy 10/06/19 Social And Human Services Assistant Relationship Specialty Start Date End Date Star Gonzales MD [address] [place] [address] PCP - General Internal Medicine 10/17/21 Joshmattie Kenrickkash, [facility] [address] [facility] [place] [address] Pharmacist Pharmacy 10/06/19 Social And Human Services Assistant Relationship Specialty Start Date End Date Star Gonzales MD [address] [place] [address] PCP - General Internal Medicine 10/17/21 Joshmattie Venessa, [facility] [address] [facility] [place] [address] Pharmacist Pharmacy 10/06/19 Social And Human Services Assistant Relationship Specialty Start Date End Date Star Gonzales MD [address] [place] [address] PCP - General Internal Medicine 10/17/21 [facility], [facility] [address] [facility] [place] [address] Pharmacist Pharmacy 10/06/19 Social And Human Services Assistant Relationship Specialty Start Date End Date Star Gonzales MD [address] [place] [address] PCP - General Internal Medicine 10/17/21 [facility], [facility] [address] [facility] [place] [address] Pharmacist Pharmacy 10/06/19 Social And Human Services Assistant Relationship Specialty Start Date End Date Star Gonzales MD [address] [place] [address] PCP - General Internal Medicine 10/17/21 [facility] Kenrickkash, [facility] [address] [facility] [place] [address] Pharmacist Pharmacy 10/06/19 Social And Human Services Assistant Relationship Specialty Start Date End Date Star Gonzales MD [address] [place] [address] PCP - General Internal Medicine 10/17/21 [facility], [facility] [address] [facility] [place] [address] Pharmacist Pharmacy 10/06/19 Social And Human Services Assistant Relationship Specialty Start Date End Date Star Gonzales MD [address] [place] [address] PCP - General Internal Medicine 10/17/21 [facility], [facility] [address] [facility] [place] [address] Pharmacist Pharmacy 10/06/19 Social And Human Services Assistant Relationship Specialty Start Date End Date Star Gonzales MD [address] [place] [address] PCP - General Internal Medicine 10/17/21 [facility], [facility] [address] [place] [address] Pharmacist Pharmacy 10/06/19 Social And Human Services Assistant Relationship Specialty Start Date End Date Star Gonzales MD [address] [place] [address] PCP - General Internal Medicine 10/17/21 Venessa Wiley, [facility] [address] [place] [address] Pharmacist Pharmacy 10/06/19 Social And Human Services Assistant Relationship Specialty Start Date End Date Star Gonzales MD [address] [place] [address] PCP - General Internal Medicine 10/17/21 Saurabh Kenrickkash, [facility] [address] [place] [address] Pharmacist Pharmacy 10/06/19 Social And Human Services Assistant Relationship Specialty Start Date End Date Star Gonzales MD [address] [place] [address] PCP - General Internal Medicine 10/17/21 [facility], [facility] [address] [place] [address] Pharmacist Pharmacy 10/06/19 Social And Human Services Assistant Relationship Specialty Start Date End Date Star Gonzales MD [address] [place] [address] PCP - General Internal Medicine 10/17/21 JoshVenessa phelps, [facility] [address] [facility] [place] [address] Pharmacist Pharmacy 10/06/19 Social And Human Services Assistant Relationship Specialty Start Date End Date Lulu Luciano MD [address] [facility] [place] [address] PCP - General Internal Medicine 04/08/22 JoshVenessa phelps, [facility] [address] [facility] [place] [address] Pharmacist Pharmacy 10/06/19 Social And Human Services Assistant Relationship Specialty Start Date End Date Lulu Luciano MD [address] [facility] [place] [address] PCP - General Internal Medicine 04/08/22 JoshVenessa phelps, [facility] [address] [facility] [place] [address] Pharmacist Pharmacy 10/06/19 Social And Human Services Assistant Relationship Specialty Start Date End Date Lulu Luciano MD [address] [facility] [place] [address] PCP - General Internal Medicine 04/08/22 JoshVenessa phelps, [facility] [address] [facility] [place] [address] Pharmacist Pharmacy 10/06/19 Social And Human Services Assistant Relationship Specialty Start Date End Date Lulu Luciano MD [address] [facility] [place] [address] PCP - General Internal Medicine 04/08/22 JoshKenrick phelpskash, [facility] [address] [facility] [place] [address] Pharmacist Pharmacy 10/06/19 Social And Human Services Assistant Relationship Specialty Start Date End Date Lulu Luciano MD [address] [facility] [place] [address] PCP - General Internal Medicine 04/08/22 Venessa Wiley, [facility] [address] [facility] [place] [address] Pharmacist Pharmacy 10/06/19 Social And Human Services Assistant Relationship Specialty Start Date End Date Lulu Luciano MD [address] [facility] [place] [address] PCP - General Internal Medicine 04/08/22 Venessa Wiley, [facility] [address] [facility] [place] [address] Pharmacist Pharmacy 10/06/19 Social And Human Services Assistant Relationship Specialty Start Date End Date Lulu Luciano MD [address] [facility] [place] [address] PCP - General Internal Medicine 04/08/22 Venessa Wiley, [facility] [address] [facility] [place] [address] Pharmacist Pharmacy 10/06/19 Social And Human Services Assistant Relationship Specialty Start Date End Date Lulu Luciano MD [address] [facility] [place] [address] PCP - General Internal Medicine 04/08/22 Venessa Wiley, [facility] [address] [facility] [place] [address] Pharmacist Pharmacy 10/06/19 Social And Human Services Assistant Relationship Specialty Start Date End Date Lulu Luciano MD [address] [facility] [place] [address] PCP - General Internal Medicine 04/08/22 Venessa Wiley, [facility] [address] [facility] [place] [address] Pharmacist Pharmacy 10/06/19 Social And Human Services Assistant Relationship Specialty Start Date End Date Lulu Luciano MD [address] [facility] [place] [address] PCP - General Internal Medicine 04/08/22 [facility], [facility] [address] [facility] [place] [address] Pharmacist Pharmacy 10/06/19 Social And Human Services Assistant Relationship Specialty Start Date End Date Lulu Luciano MD [address] [facility] [place] [address] PCP - General Internal Medicine 04/08/22 [facility] [address] [facility] [place] [address] Pharmacist Pharmacy 10/06/19 Social And Human Services Assistant Relationship Specialty Start Date End Date Lulu Luciano MD [address] [facility] [place] [address] PCP - General Internal Medicine 04/08/22 Venessa Wiley, [facility] [address] [facility] [place] [address] Pharmacist Pharmacy 10/06/19 Social And Human Services Assistant Relationship Specialty Start Date End Date Lulu Luciano MD [address] [facility] [place] [address] PCP - General Internal Medicine 04/08/22 Venessa Wiley, [facility] [address] [facility] [place] [address] Pharmacist Pharmacy 10/06/19 Team Status: Active Member Role Status Dates Dr. Lulu Luciano MD Family Provider Active Dr. Lulu Luciano MD Primary Care Provider Active Team Status: Active Member Role Status Dates Dr. Lulu Luciano MD Primary Care Provider Active Dr. Cliff Nguyen MD Attending Provider, Other Pr ovider Active Dr. Diomedes Cosme DPM Referring Provider Active Team Status: Inactive Member Role Status Dates Dr. Lulu Luciano MD Primary Care Provider, Referr ing Provider Active Semaj FONG, [place] Attending Provider Active Team Status: Inactive Member Role Status Dates Dr. Lulu Luciano MD Primary Care Provider Active Dr. Cliff Nguyen MD Attending Provider Active BECKY OrtizM Referring Provider Active Social And Human Services Assistant Relationship Specialty Start Date End Date Lulu Luciano MD [address] [facility] [place] [address] PCP - General Internal Medicine 04/08/22 [facility], [facility] [address] [facility] [place] [address] Pharmacist Pharmacy 10/06/19 Social And Human Services Assistant Relationship Specialty Start Date End Date Lulu Luciano MD [address] [facility] [place] [address] PCP - General Internal Medicine 04/08/22 [facility], [facility] [address] [facility] [place] [address] Pharmacist Pharmacy 10/06/19 Social And Human Services Assistant Relationship Specialty Start Date End Date Lulu Luciano MD [address] [facility] [place] [address] PCP - General Internal Medicine 04/08/22 [facility], [facility] [address] [facility] [place] [address] Pharmacist Pharmacy 10/06/19 Social And Human Services Assistant Relationship Specialty Start Date End Date Lulu Luciano MD [address] [facility] [place] [address] PCP - General Internal Medicine 04/08/22 [facility], [facility] [address] [facility] [place] [address] Pharmacist Pharmacy 10/06/19 Social And Human Services Assistant Relationship Specialty Start Date End Date Lulu Luciano MD [address] [place] [address] PCP - General Internal Medicine 04/08/22 [facility] [address] [place] [address] Pharmacist Pharmacy 10/06/19 Social And Human Services Assistant Relationship Specialty Start Date End Date Lulu Luciano MD [address] [place] [address] PCP - General Internal Medicine 04/08/22 [facility] [address] [place] [address] Pharmacist Pharmacy 10/06/19 Social And Human Services Assistant Relationship Specialty Start Date End Date Lulu Luciano MD [address] [place] [address] PCP - General Internal Medicine 04/08/22 [facility] [address] [place] [address] Pharmacist Pharmacy 10/06/19 Social And Human Services Assistant Relationship Specialty Start Date End Date Lulu Luciano MD [address] [place] [address] PCP - General Internal Medicine 04/08/22 [facility] [address] [place] [address] Pharmacist Pharmacy 10/06/19 Social And Human Services Assistant Relationship Specialty Start Date End Date Lulu Luciano MD [address] [facility] [place] [address] PCP - General Internal Medicine 04/08/22 [facility] [address] [place] [address] Pharmacist Pharmacy 10/06/19 Social And Human Services Assistant Relationship Specialty Start Date End Date Lulu Luciano MD [address] [place] [address] PCP - General Internal Medicine 04/08/22 [facility] [address] [facility] [place] [address] Pharmacist Pharmacy 10/06/19 Social And Human Services Assistant Relationship Specialty Start Date End Date Lulu Luciano MD [address] [facility] [place] [address] PCP - General Internal Medicine 04/08/22 [facility] [address] [facility] [place] [address] Pharmacist Pharmacy 10/06/19 Social And Human Services Assistant Relationship Specialty Start Date End Date Lulu Luciano MD [address] [place] [address] PCP - General Internal Medicine 04/08/22 [facility], [facility] [address] [facility] [place] [address] Pharmacist Pharmacy 10/06/19 Social And Human Services Assistant Relationship Specialty Start Date End Date Lulu Luciano MD [address] [facility] [place] [address] PCP - General Internal Medicine 04/08/22 JoshVenessa, [facility] [address] [facility] [place] [address] Pharmacist Pharmacy 10/06/19 Social And Human Services Assistant Relationship Specialty Start Date End Date Lulu Lcuiano MD [address] [facility] [place] [address] PCP - General Internal Medicine 04/08/22 [facility] [address] [facility] [place] [address] Pharmacist Pharmacy 10/06/19 Social And Human Services Assistant Relationship Specialty Start Date End Date Lulu Luciano MD [address] [facility] [place] [address] PCP - General Internal Medicine 04/08/22 [facility] [address] [facility] [place] [address] Pharmacist Pharmacy 10/06/19 Social And Human Services Assistant Relationship Specialty Start Date End Date Lulu Luciano MD [address] [facility] [place] [address] PCP - General Internal Medicine 04/08/22 Venessa Wiley, [facility] [address] [facility] [place] [address] Pharmacist Pharmacy 10/06/19 Social And Human Services Assistant Relationship Specialty Start Date End Date Lulu Luciano MD [address] [facility] [place] [address] PCP - General Internal Medicine 04/08/22 Venessa Wiley, [facility] [address] [facility] [place] [address] Pharmacist Pharmacy 10/06/19 Social And Human Services Assistant Relationship Specialty Start Date End Date Lulu Luciano MD [address] [place] [address] PCP - General Internal Medicine 04/08/22 [facility] [address] [place] [address] Pharmacist Pharmacy 10/06/19 Social And Human Services Assistant Relationship Specialty Start Date End Date Lulu Luciano MD [address] [place] [address] PCP - General Internal Medicine 04/08/22 [facility] [address] [place] [address] Pharmacist Pharmacy 10/06/19 Social And Human Services Assistant Relationship Specialty Start Date End Date Lulu Luciano MD [address] [place] [address] PCP - General Internal Medicine 04/08/22 [facility] [address] [place] [address] Pharmacist Pharmacy 10/06/19 Social And Human Services Assistant Relationship Specialty Start Date End Date Lulu Luciano MD [address] [place] [address] PCP - General Internal Medicine 04/08/22 Venessa Wiley, [facility] [address] [facility] [place] [address] Pharmacist Pharmacy 10/06/19 Social And Human Services Assistant Relationship Specialty Start Date End Date Lulu Luciano MD [address] [facility] [place] [address] PCP - General Internal Medicine 04/08/22 Venessa Wiley, RP Pharmacist Pharmacy 10/06/19 Social And Human Services Assistant Relationship Specialty Start Date End Date Lulu Luciano MD [address] [facility] [place] [address] PCP - General Internal Medicine 04/08/22 Venessa Wiley, RP Pharmacist Pharmacy 10/06/19 Social And Human Services Assistant Relationship Specialty Start Date End Date Lulu Luciano MD [address] [facility] [place] [address] PCP - General Internal Medicine 04/08/22 Venessa Wiley, RPh Pharmacist Pharmacy 10/06/19 Social And Human Services Assistant Relationship Specialty Start Date End Date Lulu Luciano MD [address] [facility] [place] [address] PCP - General Internal Medicine 04/08/22 Venessa Wiley, RP Pharmacist Pharmacy 10/06/19 Social And Human Services Assistant Relationship Specialty Start Date End Date Lulu Luciano MD [address] [facility] [place] [address] PCP - General Internal Medicine 04/08/22 Venessa Wiley, RPh Pharmacist Pharmacy 10/06/19 Social And Human Services Assistant Relationship Specialty Start Date End Date Lulu Luciano MD [address] [facility] [place] [address] PCP - General Internal Medicine 04/08/22 Venessa Wiley, RPh Pharmacist Pharmacy 10/06/19 Team Status: Inactive Member Role Status Dates Dr. Lulu Luciano MD Primary Care Provider, Referr ing Provider Active Ward FONG PA Attending Provider Active Team Status: Inactive Member Role Status Dates Dr. Lulu Luciano MD Primary Care Provider Active Ward FONG PA Attending Provider, Referring Pr ovider Active Social And Human Services Assistant Relationship Specialty Start Date End Date Lulu Luciano MD [address] [facility] [place] [address] PCP - General Internal Medicine 04/08/22 Social And Human Services Assistant Relationship Specialty Start Date End Date Lulu Luciano MD [address] [facility] [place] [address] PCP - General Internal Medicine 04/08/22 Social And Human Services Assistant Relationship Specialty Start Date End Date Lulu Luciano MD [address] [facility] [place] [address] PCP - General Internal Medicine 04/08/22 Social And Human Services Assistant Relationship Specialty Start Date End Date Lulu Luciano MD [address] [facility] [place] [address] PCP - General Internal Medicine 04/08/22 Social And Human Services Assistant Relationship Specialty Start Date End Date Lulu Luciano MD [address] [facility] [place] [address] PCP - General Internal Medicine 04/08/22 Social And Human Services Assistant Relationship Specialty Start Date End Date Lulu Luciano MD [address] [facility] [place] [address] PCP - General Internal Medicine 04/08/22 Social And Human Services Assistant Relationship Specialty Start Date End Date Lulu Luciano MD [address] [place] [address] PCP - General Internal Medicine 04/08/22 Social And Human Services Assistant Relationship Specialty Start Date End Date Lulu Luciano MD [address] [place] [address] PCP - General Internal Medicine 04/08/22 Social And Human Services Assistant Relationship Specialty Start Date End Date Lulu Luciano MD [address] [place] [address] PCP - General Internal Medicine 04/08/22 Social And Human Services Assistant Relationship Specialty Start Date End Date Lulu Luciano MD [address] [place] [address] PCP - General Internal Medicine 04/08/22 Social And Human Services Assistant Relationship Specialty Start Date End Date Lulu Luciano MD [address] [place] [address] PCP - General Internal Medicine 04/08/22 Social And Human Services Assistant Relationship Specialty Start Date End Date Lulu Luciano MD [address] [place] [address] PCP - General Internal Medicine 04/08/22 Social And Human Services Assistant Relationship Specialty Start Date End Date Lulu Luciano MD [address] [place] [address] PCP - General Internal Medicine 04/08/22 Social And Human Services Assistant Relationship Specialty Start Date End Date Lulu Luciano MD [address] [place] [address] PCP - General Internal Medicine 04/08/22 Social And Human Services Assistant Relationship Specialty Start Date End Date Lulu Luciano MD [address] [facility] [place] [address] PCP - General Internal Medicine 04/08/22 Social And Human Services Assistant Relationship Specialty Start Date End Date Lulu Luciano MD [address] [facility] [place] [address] PCP - General Internal Medicine 04/08/22 Social And Human Services Assistant Relationship Specialty Start Date End Date Lulu Luciano MD [address] [facility] [place] [address] PCP - General Internal Medicine 04/08/22 Social And Human Services Assistant Relationship Specialty Start Date End Date Lulu Luciano MD [address] [facility] [place] [address] PCP - General Internal Medicine 04/08/22 Social And Human Services Assistant Relationship Specialty Start Date End Date Lulu Luciano MD [address] [facility] [place] [address] PCP - General Internal Medicine 04/08/22 Social And Human Services Assistant Relationship Specialty Start Date End Date Lulu Luciano MD [address] [facility] [place] [address] PCP - General Internal Medicine 04/08/22 Social And Human Services Assistant Relationship Specialty Start Date End Date Lulu Luciano MD [address] [facility] [place] [address] PCP - General Internal Medicine 04/08/22 Social And Human Services Assistant Relationship Specialty Start Date End Date Lulu Luciano MD [address] [facility] [place] [address] PCP - General Internal Medicine 04/08/22 Social And Human Services Assistant Relationship Specialty Start Date End Date Lulu Luciano MD [address] [facility] [place] [address] PCP - General Internal Medicine 04/08/22 Social And Human Services Assistant Relationship Specialty Start Date End Date Lulu Luciano MD [address] [place] [address] PCP - General Internal Medicine 04/08/22 Social And Human Services Assistant Relationship Specialty Start Date End Date Lulu Luciano MD [address] [place] [address] PCP - General Internal Medicine 04/08/22 Social And Human Services Assistant Relationship Specialty Start Date End Date Lulu Luciano MD [address] [place] [address] PCP - General Internal Medicine 04/08/22 Social And Human Services Assistant Relationship Specialty Start Date End Date Lulu Luciano MD [address] [place] [address] PCP - General Internal Medicine 04/08/22 Social And Human Services Assistant Relationship Specialty Start Date End Date Lulu Luciano MD [address] [place] [address] PCP - General Internal Medicine 04/08/22 Social And Human Services Assistant Relationship Specialty Start Date End Date Lulu Luciano MD [address] [place] [address] PCP - General Internal Medicine 04/08/22 Social And Human Services Assistant Relationship Specialty Start Date End Date Lulu Luciano MD [address] [facility] [place] [address] PCP - General Internal Medicine 04/08/22 Social And Human Services Assistant Relationship Specialty Start Date End Date Lulu Luciano MD [address] [place] [address] PCP - General Internal Medicine 04/08/22 Social And Human Services Assistant Relationship Specialty Start Date End Date Lulu Luciano MD [address] [place] [address] PCP - General Internal Medicine 04/08/22 Social And Human Services Assistant Relationship Specialty Start Date End Date Lulu Luciano MD [address] [place] [address] PCP - General Internal Medicine 04/08/22 Social And Human Services Assistant Relationship Specialty Start Date End Date Lulu Luciano MD [address] [place] [address] PCP - General Internal Medicine 04/08/22 Social And Human Services Assistant Relationship Specialty Start Date End Date Lulu Luciano MD [address] [place] [address] PCP - General Internal Medicine 04/08/22 Social And Human Services Assistant Relationship Specialty Start Date End Date Lulu Luciano MD [address] [place] [address] PCP - General Internal Medicine 04/08/22 Social And Human Services Assistant Relationship Specialty Start Date End Date Lulu Luciano MD [address] [facility] [place] [address] PCP - General Internal Medicine 04/08/22 Social And Human Services Assistant Relationship Specialty Start Date End Date Lulu Luciano MD [address] [facility] [place] [address] PCP - General Internal Medicine 04/08/22 Social And Human Services Assistant Relationship Specialty Start Date End Date Lulu Luciano MD [address] [facility] [place] [address] PCP - General Internal Medicine 04/08/22 Social And Human Services Assistant Relationship Specialty Start Date End Date Lulu Luciano MD [address] [facility] [place] [address] PCP - General Internal Medicine 04/08/22 Social And Human Services Assistant Relationship Specialty Start Date End Date Lulu Luciano MD [address] [facility] [place] [address] PCP - General Internal Medicine 04/08/22 Social And Human Services Assistant Relationship Specialty Start Date End Date Lulu Luciano MD [address] [facility] [place] [address] PCP - General Internal Medicine 04/08/22 Social And Human Services Assistant Relationship Specialty Start Date End Date Lulu Luciano MD [address] [facility] [place] [address] PCP - General Internal Medicine 04/08/22 Social And Human Services Assistant Relationship Specialty Start Date End Date Lulu Luciano MD [address] [facility] [place] [address] PCP - General Internal Medicine 04/08/22 Social And Human Services Assistant Relationship Specialty Start Date End Date Lulu Luciano MD [address] [place] [address] PCP - General Internal Medicine 04/08/22 Social And Human Services Assistant Relationship Specialty Start Date End Date Lulu Luciano MD [address] [place] [address] PCP - General Internal Medicine 04/08/22 Social And Human Services Assistant Relationship Specialty Start Date End Date Lulu Luciano MD [address] [place] [address] PCP - General Internal Medicine 04/08/22 Social And Human Services Assistant Relationship Specialty Start Date End Date Lulu Luciano MD [address] [place] [address] PCP - General Internal Medicine 04/08/22 Social And Human Services Assistant Relationship Specialty Start Date End Date Lulu Luciano MD [address] [place] [address] PCP - General Internal Medicine 04/08/22 Social And Human Services Assistant Relationship Specialty Start Date End Date Lulu Luciano MD [address] [facility] [place] [address] PCP - General Internal Medicine 04/08/22 Social And Human Services Assistant Relationship Specialty Start Date End Date Lulu Luciano MD [address] [place] [address] PCP - General Internal Medicine 04/08/22 Social And Human Services Assistant Relationship Specialty Start Date End Date Lulu Luciano MD [address] [place] [address] PCP - General Internal Medicine 04/08/22 Social And Human Services Assistant Relationship Specialty Start Date End Date Lulu Luciano MD [address] [place] [address] PCP - General Internal Medicine 04/08/22 [facility] Pharmacist Pharmacy 10/06/19 04/21/23 Social And Human Services Assistant Relationship Specialty Start Date End Date Star Gonzales MD [address] [place], [place] [id number] PCP - General Internal Medicine 10/17/21 04/07/22 [facility] Pharmacist Pharmacy 10/06/19 04/21/23 Social And Human Services Assistant Relationship Specialty Start Date End Date Lulu Luciano MD [address] [place] [address] PCP - General Internal Medicine 04/08/22 [facility] Pharmacist Pharmacy 10/06/19 04/21/23 Social And Human Services Assistant Relationship Specialty Start Date End Date Lulu Luciano MD [address] [place] [address] PCP - General Internal Medicine 04/08/22 Social And Human Services Assistant Relationship Specialty Start Date End Date Lulu Luciano MD [address] [place] [address] PCP - General Internal Medicine 04/08/22 Social And Human Services Assistant Relationship Specialty Start Date End Date Lulu Luciano MD [address] [facility] [place] [address] PCP - General Internal Medicine 04/08/22 Social And Human Services Assistant Relationship Specialty Start Date End Date Lulu Luciano MD [address] [facility] [place] [address] PCP - General Internal Medicine 04/08/22 Social And Human Services Assistant Relationship Specialty Start Date End Date Lulu Luciano MD [address] [facility] [place] [address] PCP - General Internal Medicine 04/08/22 Social And Human Services Assistant Relationship Specialty Start Date End Date Lulu Luciano MD [address] [place] [address] PCP - General Internal Medicine 04/08/22 Social And Human Services Assistant Relationship Specialty Start Date End Date Lulu Luciano MD [address] [place] [address] PCP - General Internal Medicine 04/08/22 Social And Human Services Assistant Relationship Specialty Start Date End Date Lulu Luciano MD [address] [facility] [place] [address] PCP - General Internal Medicine 04/08/22 Social And Human Services Assistant Relationship Specialty Start Date End Date Lulu Luciano MD [address] [facility] [place] [address] PCP - General Internal Medicine 04/08/22 Social And Human Services Assistant Relationship Specialty Start Date End Date Lulu Luciano MD [address] [facility] [place] [address] PCP - General Internal Medicine 04/08/22 Sudhir Talbot, MARBLE WORKER.REHAB NURSE [address] [place] [address] Curriculum And Assessment Director Internal Medicine 02/29/24 Pedro Patricia MARBLE WORKER.NUTRITION SERVICES WORKER [address] [place] [address] Curriculum And Assessment Director Internal Medicine 02/29/24 Social And Human Services Assistant Relationship Specialty Start Date End Date Lulu Luciano MD [address] [place] [address] PCP - General Internal Medicine 04/08/22 Sudhir Talbot, MARBLE WORKER.REHAB NURSE [address] [place] [address] Curriculum And Assessment Director Internal Medicine 02/29/24 Pedro Patricia MARBLE WORKER.NUTRITION SERVICES WORKER [address] [place] [address] [facility] Internal Medicine 02/29/24 Social And Human Services Assistant Relationship Specialty Start Date End Date Lulu Luciano MD [address] [place] [address] PCP - General Internal Medicine 04/08/22 Sudhir Talbot, MARBLE WORKER.REHAB NURSE [address] [place] [address] [facility] Internal Medicine 02/29/24 Pedro Patricia MARBLE WORKER.NUTRITION SERVICES WORKER [address] [place] [address] [facility] Internal Medicine 02/29/24 Social And Human Services Assistant Relationship Specialty Start Date End Date Lulu Luciano MD [address] [facility] [place] [address] PCP - General Internal Medicine 04/08/22 Sudhir Talbot, MARBLE WORKER.REHAB NURSE [address] [facility] [place] [address] Curriculum And Assessment Director Internal Medicine 02/29/24 Pedro Patricia APRN.NUTRITION SERVICES WORKER [address] [place] [address] Curriculum And Assessment Director Internal Medicine 02/29/24 Social And Human Services Assistant Relationship Specialty Start Date End Date Lulu Luciano MD [address] [facility] [place] [address] PCP - General Internal Medicine 04/08/22 Sudhir Talbot, MARBLE WORKER.REHAB NURSE [address] [facility] [place] [address] Curriculum And Assessment Director Internal Medicine 02/29/24 Pedro Patricia APRN.NUTRITION SERVICES WORKER [address] [facility] [place] [address] Curriculum And Assessment Director Internal Medicine 02/29/24 Social And Human Services Assistant Relationship Specialty Start Date End Date Lulu Luciano MD [address] [facility] [place] [address] PCP - General Internal Medicine 04/08/22 Sudhir Talbot, MARBLE WORKER.REHAB NURSE [address] [facility] [place] [address] Curriculum And Assessment Director Internal Medicine 02/29/24 Pedro Patricia APRN.NUTRITION SERVICES WORKER [address] [place] [address] Curriculum And Assessment Director Internal Medicine 02/29/24 Social And Human Services Assistant Relationship Specialty Start Date End Date Lulu Luciano MD [address] [place] [address] PCP - General Internal Medicine 04/08/22 Sudhir Talbot, MARBLE WORKER.REHAB NURSE [address] [place] [address] Curriculum And Assessment Director Internal Medicine 02/29/24 Pedro Patricia MARBLE WORKER.NUTRITION SERVICES WORKER [address] [place] [address] Curriculum And Assessment Director Internal Medicine 02/29/24 Social And Human Services Assistant Relationship Specialty Start Date End Date Lulu Luciano MD [address] [place] [address] PCP - General Internal Medicine 04/08/22 Sudhir Talbot, MARBLE WORKER.REHAB NURSE [address] [place] [address] Curriculum And Assessment Director Internal Medicine 02/29/24 Pedro Patricia MARBLE WORKER.NUTRITION SERVICES WORKER [address] [place] [address] Curriculum And Assessment Director Internal Medicine 02/29/24 Social And Human Services Assistant Relationship Specialty Start Date End Date Lulu Luciano MD [address] [place] [address] PCP - General Internal Medicine 04/08/22 Sudhir Talbot, MARBLE WORKER.REHAB NURSE [address] [place] [address] Curriculum And Assessment Director Internal Medicine 02/29/24 Pedro Patricia APRN.NUTRITION SERVICES WORKER [address] [place] [address] [facility] Internal Medicine 02/29/24 Social And Human Services Assistant Relationship Specialty Start Date End Date Lulu Luciano MD [address] [place] [address] PCP - General Internal Medicine 04/08/22 Sudhir Talbot, MARBLE WORKER.REHAB NURSE [address] [place] [address] [facility] Internal Medicine 02/29/24 Pedro Patricia MARBLE WORKER.NUTRITION SERVICES WORKER [address] [place] [address] [facility] Internal Medicine 02/29/24 Social And Human Services Assistant Relationship Specialty Start Date End Date Lulu Luciano MD [address] [place] [address] PCP - General Internal Medicine 04/08/22 Sudhir Talbot, MARBLE WORKER.REHAB NURSE [address] [place] [address] [facility] Internal Medicine 02/29/24 Pedro Patricia MARBLE WORKER.NUTRITION SERVICES WORKER [address] [place] [address] [facility] Internal Medicine 02/29/24 Social And Human Services Assistant Relationship Specialty Start Date End Date Lulu Luciano MD [address] [place] [address] PCP - General Internal Medicine 04/08/22 Sudhir Talbot, MARBLE WORKER.REHAB NURSE [address] [place] [address] Curriculum And Assessment Director Internal Medicine 02/29/24 Pedro Patricia APRN.NUTRITION SERVICES WORKER [address] [place] [address] Curriculum And Assessment Director Internal Medicine 02/29/24 Social And Human Services Assistant Relationship Specialty Start Date End Date Lulu Luciano MD [address] [place] [address] PCP - General Internal Medicine 04/08/22 Sudhir Talbot, MARBLE WORKER.REHAB NURSE [address] [place] [address] Curriculum And Assessment Director Internal Medicine 02/29/24 Pedro Patricia MARBLE WORKER.NUTRITION SERVICES WORKER [address] [place] [address] [facility] Internal Medicine 02/29/24 Social And Human Services Assistant Relationship Specialty Start Date End Date Lulu Luciano MD [address] [place] [address] PCP - General Internal Medicine 04/08/22 Sudhir Talbot, MARBLE WORKER.REHAB NURSE [address] [place] [address] [facility] Internal Medicine 02/29/24 Pedro Patricia APRN.NUTRITION SERVICES WORKER [address] [place] [address] [facility] Internal Medicine 02/29/24 Team Status: Active Member Role Status Dates Dr. Lulu Luciano MD Primary Care Provider Active Team Status: Inactive Member Role Status Dates Dr. Lulu Luciano MD Primary Care Provider Active Start: January 27, 2024 End: January 27, 2024 Dr. Lulu Luciano MD Referring Provider Active Start: January 27, 2024 End: January 27, 2024 Ward FONG, PA Attending Provider Active Start: January 27, 2024 End: January 27, 2024 Team Status: Inactive Member Role Status Dates Dr. Lulu Luciano MD Primary Care Provider Active Start: February 25, 2024 End: February 25, 2024 Dr. Lulu Luciano MD Referring Provider Active Start: February 25, 2024 End: February 25, 2024 Semaj FONG PA Attending Provider Active Sta rt: February 25, 2024 End: February 25, 2024 Team Status: Inactive Member Role Status Dates Dr. Lulu Luciano MD Primary Care Provider Active Start: April 15, 2024 End: April 15, 2024 Dr. Yanni Malone MD Attending Provider Active Start: April 15, 2024 End: April 15, 2024 Dr. Yanni Malone MD Referring Provider Active Start: April 15, 2024 End: April 15, 2024 Team Status: Active Member Role Status Dates Dr. Lulu Luciano MD Primary Care Provider Active Start: May 19, 2024 End: May 19, 2024 Dr. Petey Ordonez MD Attending Provider Active Start: May 19, 2024 End: May 19, 2024 Dr. Osvaldo Freeman DO Referring Provider Active Start: May 19, 2024 End: May 19, 2024 Team Status: Inactive Member Role Status Dates Dr. Lulu Luciano MD Primary Care Provider Active Start: May 26, 2024 End: May 26, 2024 Dr. Osvaldo Freeman DO Attending Provider Active Start: May 26, 2024 End: May 26, 2024 Dr. Osvaldo Freeman DO Referring Provider Active Start: May 26, 2024 End: May 26, 2024 Social And Human Services Assistant Relationship Specialty Start Date End Date Lulu Luciano MD [address] [place] [address] PCP - General Internal Medicine 04/08/22 Sudhir Talbot, MARBLE WORKER.REHAB NURSE [address] [place] [address] Curriculum And Assessment Director Internal Medicine 02/29/24 Pedro Patricia MARBLE WORKER.NUTRITION SERVICES WORKER [address] [place] [address] Curriculum And Assessment Director Internal Medicine 06/14/24 Social And Human Services Assistant Relationship Specialty Start Date End Date Lulu Luciano MD [address] [place] [address] PCP - General Internal Medicine 04/08/22 Sudhir Talbot, MARBLE WORKER.REHAB NURSE [address] [place] [address] Curriculum And Assessment Director Internal Medicine 02/29/24 Pedro Patricia MARBLE WORKER.NUTRITION SERVICES WORKER [address] [place] [address] [facility] Internal Medicine 06/14/24 Social And Human Services Assistant Relationship Specialty Start Date End Date Lulu Luciano MD [address] [place] [address] PCP - General Internal Medicine 04/08/22 Sudhir Talbot, MARBLE WORKER.REHAB NURSE [address] [place] [address] Curriculum And Assessment Director Internal Medicine 02/29/24 Pedro Patricia MARBLE WORKER.NUTRITION SERVICES WORKER [address] [place] [address] [facility] Internal Medicine 06/14/24 Social And Human Services Assistant Relationship Specialty Start Date End Date Lulu Luciano MD [address] [place] [place], [place] [address] PCP - General Internal Medicine 04/08/22 Sudhir Talbot, MARBLE WORKER.REHAB NURSE [address] [place] [address] Curriculum And Assessment Director Internal Medicine 02/29/24 Pedro Patricia MARBLE WORKER.NUTRITION SERVICES WORKER [address] [place] [address] [facility] Internal Medicine 06/14/24 Team Status: Inactive Member Role Status Dates Dr. Lulu Luciano MD Primary Care Provider Active Start: July 06, 2024 End: July 06, 2024 Dr. Alton Lott DO Referring Provider Active Start: July 06, 2024 End: July 06, 2024 Dr. Alton Lott , Emergency Provider Active Start: July 06, 2024 End: July 06, 2024 Social And Human Services Assistant Relationship Specialty Start Date End Date Lulu Luciano MD [address] [place] [address] PCP - General Internal Medicine 04/08/22 Sudhir Talbot, MARBLE WORKER.REHAB NURSE [address] [place] [address] Curriculum And Assessment Director Internal Medicine 02/29/24 Pedro Patricia MARBLE WORKER.NUTRITION SERVICES WORKER [address] [place] [address] [facility] Internal Medicine 06/14/24 Social And Human Services Assistant Relationship Specialty Start Date End Date Lulu Luciano MD [address] [place], [place] [address] PCP - General Internal Medicine 04/08/22 Sudhir Talbot, MARBLE WORKER.REHAB NURSE [address] [facility] [place] [address] Curriculum And Assessment Director Internal Medicine 02/29/24 Pedro Patricia MARBLE WORKER.NUTRITION SERVICES WORKER [address] [facility] [place] [address] Curriculum And Assessment Director Internal Medicine 06/14/24 Social And Human Services Assistant Relationship Specialty Start Date End Date Lulu Luciano MD [address] [facility] [place] [address] PCP - General Internal Medicine 04/08/22 Sudhir Talbot, MARBLE WORKER.REHAB NURSE [address] [facility] [place] [address] Curriculum And Assessment Director Internal Medicine 02/29/24 Pedro Patricia MARBLE WORKER.NUTRITION SERVICES WORKER [address] [facility] [place] [address] [facility] Internal Medicine 06/14/24 Social And Human Services Assistant Relationship Specialty Start Date End Date Lulu Luciano MD [address] [facility] [place] [address] PCP - General Internal Medicine 04/08/22 Sudhir Talbot, MARBLE WORKER.REHAB NURSE [address] [facility] [place] [address] [facility] Internal Medicine 02/29/24 Pedro Patricia MARBLE WORKER.NUTRITION SERVICES WORKER [address] [facility] [place] [address] [facility] Internal Medicine 06/14/24 Social And Human Services Assistant Relationship Specialty Start Date End Date Lulu Luciano MD [address] [place] [address] PCP - General Internal Medicine 04/08/22 Sudhir Talbot, MARBLE WORKER.REHAB NURSE [address] [place] [address] Curriculum And Assessment Director Internal Medicine 02/29/24 Pedro Patricia MARBLE WORKER.NUTRITION SERVICES WORKER [address] [place] [address] Curriculum And Assessment Director Internal Medicine 06/14/24 Social And Human Services Assistant Relationship Specialty Start Date End Date Lulu Luciano MD [address] [place] [address] PCP - General Internal Medicine 04/08/22 Sudhir Talbot, MARBLE WORKER.REHAB NURSE [address] [place] [address] Curriculum And Assessment Director Internal Medicine 02/29/24 Pedro Patricia APRN.NUTRITION SERVICES WORKER [address] [place] [address] Curriculum And Assessment Director Internal Medicine 06/14/24 Social And Human Services Assistant Relationship Specialty Start Date End Date Lulu Luciano MD [address] [place] [address] PCP - General Internal Medicine 04/08/22 Pedro Patricia APRN.NUTRITION SERVICES WORKER [address] [place] [address] Curriculum And Assessment Director Internal Medicine 06/14/24 Sudhir Talbot, MARBLE WORKER.REHAB NURSE [address] [facility] [place] [address] Curriculum And Assessment Director Internal Medicine 08/10/24 Social And Human Services Assistant Relationship Specialty Start Date End Date Lulu uLciano MD [address] [facility] [place] [address] PCP - General Internal Medicine 04/08/22 Pedro Patricia MARBLE WORKER.NUTRITION SERVICES WORKER [address] [facility] [place] [address] Curriculum And Assessment Director Internal Medicine 06/14/24 Sudhir Talbot, MARBLE WORKER.REHAB NURSE [address] [place] [address] Curriculum And Assessment Director Internal Medicine 08/10/24 Social And Human Services Assistant Relationship Specialty Start Date End Date Lulu Luciano MD [address] [place] [address] PCP - General Internal Medicine 04/08/22 Pedro Patricia MARBLE WORKER.NUTRITION SERVICES WORKER [address] [facility] [place] [address] Curriculum And Assessment Director Internal Medicine 06/14/24 Sudhir Talbot, MARBLE WORKER.REHAB NURSE [address] [facility] [place] [address] Curriculum And Assessment Director Internal Medicine 08/10/24 Social And Human Services Assistant Relationship Specialty Start Date End Date Lulu Luciano MD [address] [facility] [place] [address] PCP - General Internal Medicine 04/08/22 Pedro Patricia MARBLE WORKER.NUTRITION SERVICES WORKER [address] [place] [address] Curriculum And Assessment Director Internal Medicine 06/14/24 Sudhir Talbot, MARBLE WORKER.REHAB NURSE [address] [facility] [place] [address] Curriculum And Assessment Director Internal Medicine 08/10/24 Social And Human Services Assistant Relationship Specialty Start Date End Date Lulu Luciano MD [address] [place] [address] PCP - General Internal Medicine 04/08/22 Pedro Patricia, MARBLE WORKER.NUTRITION SERVICES WORKER [address] [place] [address] Curriculum And Assessment Director Internal Medicine 06/14/24 Sudhir Talbot, MARBLE WORKER.REHAB NURSE [address] [place] [address] [facility] Internal Medicine 08/10/24 Social And Human Services Assistant Relationship Specialty Start Date End Date Lulu Luciano MD [address] [place] [address] PCP - General Internal Medicine 04/08/22 Pedro Patricia, MARBLE WORKER.NUTRITION SERVICES WORKER [address] [place] [address] Curriculum And Assessment Director Internal Medicine 06/14/24 Sudhir Talbot, MARBLE WORKER.REHAB NURSE [address] [place] [address] [facility] Internal Medicine 08/10/24 Social And Human Services Assistant Relationship Specialty Start Date End Date Lulu Luciano MD [address] [place] [address] PCP - General Internal Medicine 04/08/22 Pedro Patricia APRN.NUTRITION SERVICES WORKER [address] [facility] [place] [address] Curriculum And Assessment Director Internal Medicine 06/14/24 Sudhir Talbot APRN.REHAB NURSE [address] [facility] [place] [address] Curriculum And Assessment Director Internal Medicine 08/10/24 Social And Human Services Assistant Relationship Specialty Start Date End Date Lulu Luciano MD [address] [facility] [place] [address] PCP - General Internal Medicine 04/08/22 Pedro Patricia APRN.NUTRITION SERVICES WORKER [address] [facility] [place] [address] Curriculum And Assessment Director Internal Medicine 06/14/24 Sudhir Talbot MARBLE WORKER.REHAB NURSE [address] [facility] [place] [address] Curriculum And Assessment Director Internal Medicine 08/10/24 Social And Human Services Assistant Relationship Specialty Start Date End Date Lulu Luciano MD [address] [facility] [place] [address] PCP - General Internal Medicine 04/08/22 Pedro Patricia MARBLE WORKER.NUTRITION SERVICES WORKER [address] [facility] [place] [address] Curriculum And Assessment Director Internal Medicine 06/14/24 Sudhir Talbot APRN.REHAB NURSE [address] [facility] [place] [address] Curriculum And Assessment Director Internal Medicine 08/10/24 Social And Human Services Assistant Relationship Specialty Start Date End Date Lulu Luciano MD [address] [place] [address] PCP - General Internal Medicine 04/08/22 Pedro Patricia APRN.NUTRITION SERVICES WORKER [address] [place] [address] Curriculum And Assessment Director Internal Medicine 06/14/24 Sudhir Talbot APRN.REHAB NURSE [address] [facility] [place] [address] Curriculum And Assessment Director Internal Medicine 08/10/24 Social And Human Services Assistant Relationship Specialty Start Date End Date Lulu Luciano MD [address] [place] [address] PCP - General Internal Medicine 04/08/22 Pedro Patricia APRN.NUTRITION SERVICES WORKER [address] [place] [address] Curriculum And Assessment Director Internal Medicine 06/14/24 Sudhir Talobt APRN.REHAB NURSE [address] [place] [address] Curriculum And Assessment Director Internal Medicine 08/10/24 Social And Human Services Assistant Relationship Specialty Start Date End Date Lulu Luciano MD [address] [facility] [place] [address] PCP - General Internal Medicine 04/08/22 Pedro Patricia APRN.NUTRITION SERVICES WORKER [address] [place] [address] Curriculum And Assessment Director Internal Medicine 06/14/24 Sudhir Talbot APRN.REHAB NURSE [address] [facility] [place] [address] Curriculum And Assessment Director Internal Medicine 08/10/24 Social And Human Services Assistant Relationship Specialty Start Date End Date Lulu Luciano MD [address] [place] [address] PCP - General Internal Medicine 04/08/22 Pedro Patricia APRN.NUTRITION SERVICES WORKER [address] [place] [address] Curriculum And Assessment Director Internal Medicine 06/14/24 Sudhir Talbot APRN.REHAB NURSE [address] [place] [address] Curriculum And Assessment Director Internal Medicine 08/10/24 Social And Human Services Assistant Relationship Specialty Start Date End Date Lulu Luciano MD [address] [facility] [place] [address] PCP - General Internal Medicine 04/08/22 Pedro Patricia APRN.NUTRITION SERVICES WORKER [address] [place] [address] Curriculum And Assessment Director Internal Medicine 06/14/24 Sudhir Talbot, MARBLE WORKER.REHAB NURSE [address] [facility] [place] [address] Curriculum And Assessment Director Internal Medicine 08/10/24 Social And Human Services Assistant Relationship Specialty Start Date End Date Lulu Luciano MD [address] [place] [address] PCP - General Internal Medicine 04/08/22 Pedro Patricia MARBLE WORKER.NUTRITION SERVICES WORKER [address] [facility] [place] [address] Curriculum And Assessment Director Internal Medicine 06/14/24 Sudhir Talbot, MARBLE WORKER.REHAB NURSE [address] [facility] [place] [address] [facility] Internal Medicine 08/10/24 Social And Human Services Assistant Relationship Specialty Start Date End Date Lulu Luciano MD [address], [place] [address] PCP - General Internal Medicine 04/08/22 Pedro Patricia MARBLE WORKER.NUTRITION SERVICES WORKER [address], [place] [address] [facility] Internal Medicine 06/14/24 Sudhir Talbot, MARBLE WORKER.REHAB NURSE [address] [place] [address] [facility] Internal Medicine 08/10/24 Social And Human Services Assistant Relationship Specialty Start Date End Date Lulu Luciano MD [address] [facility], [place] [address] PCP - General Internal Medicine 04/08/22 Pedro Patricia MARBLE WORKER.NUTRITION SERVICES WORKER [address], [place] [address] [facility] Internal Medicine 06/14/24 Sudhir Talbot, MARBLE WORKER.REHAB NURSE [address] [place] [address] [facility] Internal Medicine 08/10/24 Source Comments (unrecognize d section and content) In the event this informatio n is protected by the Federal Confidentiality of Alcohol and Drug Abuse Patient Records regulations: The Federal rules restrict any use of the information to criminally investigate or prosecute any alcohol or drug abuse patient.[facility] the event this information is protected by the Federal Confidentiality of Alcohol and Drug Abuse Patient Records regulations: The Federal rules restrict any use of the information to criminally investigate or prosecute any alcohol or drug abuse patient.[facility] CenterIn the event this information is protected by the Federal Confidentiality of Alcohol and Drug Abuse Patient Records regulations: The Federal rules restrict any use of the information to criminally investigate or prosecute any alcohol or drug abuse patient.[facility] Center[facility] the event this information is protected by the Federal Confidentiality of Alcohol and Drug Abuse Patient Records regulations: The Federal rules restrict any use of the information to criminally investigate or prosecute any alcohol or drug abuse patient.[facility] CenterIn the event this information is protected by the Federal Confidentiality of Alcohol and Drug Abuse Patient Records regulations: The Federal rules restrict any use of the information to criminally investigate or prosecute any alcohol or drug abuse patient.[facility] Center[facility] the event this information is protected by the Federal Confidentiality of Alcohol and Drug Abuse Patient Records regulations: The Federal rules restrict any use of the information to criminally investigate or prosecute any alcohol or drug abuse patient.[facility] CenterIn the event this information is protected by the Federal Confidentiality of Alcohol and Drug Abuse Patient Records regulations: The Federal rules restrict any use of the information to criminally investigate or prosecute any alcohol or drug abuse patient.[facility] CenterIn the event this information is protected by the Federal Confidentiality of Alcohol and Drug Abuse Patient Records regulations: The Federal rules restrict any use of the information to criminally investigate or prosecute any alcohol or drug abuse patient.[facility] CenterIn the event this information is protected by the Federal Confidentiality of Alcohol and Drug Abuse Patient Records regulations: The Federal rules restrict any use of the information to criminally investigate or prosecute any alcohol or drug abuse patient.[facility] CenterIn the event this information is protected by the Federal Confidentiality of Alcohol and Drug Abuse Patient Records regulations: The Federal rules restrict any use of the information to criminally investigate or prosecute any alcohol or drug abuse patient.[facility] CenterIn the event this information is protected by the Federal Confidentiality of Alcohol and Drug Abuse Patient Records regulations: The Federal rules restrict any use of the information to criminally investigate or prosecute any alcohol or drug abuse patient.[facility] CenterIn the event this information is protected by the Federal Confidentiality of Alcohol and Drug Abuse Patient Records regulations: The Federal rules restrict any use of the information to criminally investigate or prosecute any alcohol or drug abuse patient.[facility] CenterIn the event this information is protected by the Federal Confidentiality of Alcohol and Drug Abuse Patient Records regulations: The Federal rules restrict any use of the information to criminally investigate or prosecute any alcohol or drug abuse patient.[facility] CenterIn the event this information is protected by the Federal Confidentiality of Alcohol and Drug Abuse Patient Records regulations: The Federal rules restrict any use of the information to criminally investigate or prosecute any alcohol or drug abuse patient.[facility] CenterIn the event this information is protected by the Federal Confidentiality of Alcohol and Drug Abuse Patient Records regulations: The Federal rules restrict any use of the information to criminally investigate or prosecute any alcohol or drug abuse patient.[facility] CenterIn the event this information is protected by the Federal Confidentiality of Alcohol and Drug Abuse Patient Records regulations: The Federal rules restrict any use of the information to criminally investigate or prosecute any alcohol or drug abuse patient.[facility] CenterIn the event this information is protected by the Federal Confidentiality of Alcohol and Drug Abuse Patient Records regulations: The Federal rules restrict any use of the information to criminally investigate or prosecute any alcohol or drug abuse patient.[facility] CenterIn the event this information is protected by the Federal Confidentiality of Alcohol and Drug Abuse Patient Records regulations: The Federal rules restrict any use of the information to criminally investigate or prosecute any alcohol or drug abuse patient.[facility] CenterIn the event this information is protected by the Federal Confidentiality of Alcohol and Drug Abuse Patient Records regulations: The Federal rules restrict any use of the information to criminally investigate or prosecute any alcohol or drug abuse patient.[facility] CenterIn the event this information is protected by the Federal Confidentiality of Alcohol and Drug Abuse Patient Records regulations: The Federal rules restrict any use of the information to criminally investigate or prosecute any alcohol or drug abuse patient.[facility] CenterIn the event this information is protected by the Federal Confidentiality of Alcohol and Drug Abuse Patient Records regulations: The Federal rules restrict any use of the information to criminally investigate or prosecute any alcohol or drug abuse patient.[facility] CenterIn the event this information is protected by the Federal Confidentiality of Alcohol and Drug Abuse Patient Records regulations: The Federal rules restrict any use of the information to criminally investigate or prosecute any alcohol or drug abuse patient.[facility] CenterIn the event this information is protected by the Federal Confidentiality of Alcohol and Drug Abuse Patient Records regulations: The Federal rules restrict any use of the information to criminally investigate or prosecute any alcohol or drug abuse patient.[facility] CenterIn the event this information is protected by the Federal Confidentiality of Alcohol and Drug Abuse Patient Records regulations: The Federal rules restrict any use of the information to criminally investigate or prosecute any alcohol or drug abuse patient.[facility] CenterIn the event this information is protected by the Federal Confidentiality of Alcohol and Drug Abuse Patient Records regulations: The Federal rules restrict any use of the information to criminally investigate or prosecute any alcohol or drug abuse patient.[facility] CenterIn the event this information is protected by the Federal Confidentiality of Alcohol and Drug Abuse Patient Records regulations: The Federal rules restrict any use of the information to criminally investigate or prosecute any alcohol or drug abuse patient.[facility] CenterIn the event this information is protected by the Federal Confidentiality of Alcohol and Drug Abuse Patient Records regulations: The Federal rules restrict any use of the information to criminally investigate or prosecute any alcohol or drug abuse patient.[facility] CenterIn the event this information is protected by the Federal Confidentiality of Alcohol and Drug Abuse Patient Records regulations: The Federal rules restrict any use of the information to criminally investigate or prosecute any alcohol or drug abuse patient.[facility] CenterIn the event this information is protected by the Federal Confidentiality of Alcohol and Drug Abuse Patient Records regulations: The Federal rules restrict any use of the information to criminally investigate or prosecute any alcohol or drug abuse patient.[facility] CenterIn the event this information is protected by the Federal Confidentiality of Alcohol and Drug Abuse Patient Records regulations: The Federal rules restrict any use of the information to criminally investigate or prosecute any alcohol or drug abuse patient.[facility] CenterIn the event this information is protected by the Federal Confidentiality of Alcohol and Drug Abuse Patient Records regulations: The Federal rules restrict any use of the information to criminally investigate or prosecute any alcohol or drug abuse patient.[facility] CenterIn the event this information is protected by the Federal Confidentiality of Alcohol and Drug Abuse Patient Records regulations: The Federal rules restrict any use of the information to criminally investigate or prosecute any alcohol or drug abuse patient.[facility] CenterIn the event this information is protected by the Federal Confidentiality of Alcohol and Drug Abuse Patient Records regulations: The Federal rules restrict any use of the information to criminally investigate or prosecute any alcohol or drug abuse patient.[facility] CenterIn the event this information is protected by the Federal Confidentiality of Alcohol and Drug Abuse Patient Records regulations: The Federal rules restrict any use of the information to criminally investigate or prosecute any alcohol or drug abuse patient.[facility] CenterIn the event this information is protected by the Federal Confidentiality of Alcohol and Drug Abuse Patient Records regulations: The Federal rules restrict any use of the information to criminally investigate or prosecute any alcohol or drug abuse patient.[facility] CenterIn the event this information is protected by the Federal Confidentiality of Alcohol and Drug Abuse Patient Records regulations: The Federal rules restrict any use of the information to criminally investigate or prosecute any alcohol or drug abuse patient.[facility] CenterIn the event this information is protected by the Federal Confidentiality of Alcohol and Drug Abuse Patient Records regulations: The Federal rules restrict any use of the information to criminally investigate or prosecute any alcohol or drug abuse patient.[facility] CenterIn the event this information is protected by the Federal Confidentiality of Alcohol and Drug Abuse Patient Records regulations: The Federal rules restrict any use of the information to criminally investigate or prosecute any alcohol or drug abuse patient.[facility] CenterIn the event this information is protected by the Federal Confidentiality of Alcohol and Drug Abuse Patient Records regulations: The Federal rules restrict any use of the information to criminally investigate or prosecute any alcohol or drug abuse patient.[facility] CenterIn the event this information is protected by the Federal Confidentiality of Alcohol and Drug Abuse Patient Records regulations: The Federal rules restrict any use of the information to criminally investigate or prosecute any alcohol or drug abuse patient.[facility] CenterIn the event this information is protected by the Federal Confidentiality of Alcohol and Drug Abuse Patient Records regulations: The Federal rules restrict any use of the information to criminally investigate or prosecute any alcohol or drug abuse patient.[facility] CenterIn the event this information is protected by the Federal Confidentiality of Alcohol and Drug Abuse Patient Records regulations: The Federal rules restrict any use of the information to criminally investigate or prosecute any alcohol or drug abuse patient.[facility] CenterIn the event this information is protected by the Federal Confidentiality of Alcohol and Drug Abuse Patient Records regulations: The Federal rules restrict any use of the information to criminally investigate or prosecute any alcohol or drug abuse patient.[facility] CenterIn the event this information is protected by the Federal Confidentiality of Alcohol and Drug Abuse Patient Records regulations: The Federal rules restrict any use of the information to criminally investigate or prosecute any alcohol or drug abuse patient.[facility] CenterIn the event this information is protected by the Federal Confidentiality of Alcohol and Drug Abuse Patient Records regulations: The Federal rules restrict any use of the information to criminally investigate or prosecute any alcohol or drug abuse patient.[facility] CenterIn the event this information is protected by the Federal Confidentiality of Alcohol and Drug Abuse Patient Records regulations: The Federal rules restrict any use of the information to criminally investigate or prosecute any alcohol or drug abuse patient.[facility] CenterIn the event this information is protected by the Federal Confidentiality of Alcohol and Drug Abuse Patient Records regulations: The Federal rules restrict any use of the information to criminally investigate or prosecute any alcohol or drug abuse patient.[facility] CenterIn the event this information is protected by the Federal Confidentiality of Alcohol and Drug Abuse Patient Records regulations: The Federal rules restrict any use of the information to criminally investigate or prosecute any alcohol or drug abuse patient.[facility] CenterIn the event this information is protected by the Federal Confidentiality of Alcohol and Drug Abuse Patient Records regulations: The Federal rules restrict any use of the information to criminally investigate or prosecute any alcohol or drug abuse patient.[facility] CenterIn the event this information is protected by the Federal Confidentiality of Alcohol and Drug Abuse Patient Records regulations: The Federal rules restrict any use of the information to criminally investigate or prosecute any alcohol or drug abuse patient.[facility] CenterIn the event this information is protected by the Federal Confidentiality of Alcohol and Drug Abuse Patient Records regulations: The Federal rules restrict any use of the information to criminally investigate or prosecute any alcohol or drug abuse patient.[facility] CenterIn the event this information is protected by the Federal Confidentiality of Alcohol and Drug Abuse Patient Records regulations: The Federal rules restrict any use of the information to criminally investigate or prosecute any alcohol or drug abuse patient.[facility] CenterIn the event this information is protected by the Federal Confidentiality of Alcohol and Drug Abuse Patient Records regulations: The Federal rules restrict any use of the information to criminally investigate or prosecute any alcohol or drug abuse patient.[facility] CenterIn the event this information is protected by the Federal Confidentiality of Alcohol and Drug Abuse Patient Records regulations: The Federal rules restrict any use of the information to criminally investigate or prosecute any alcohol or drug abuse patient.[facility] CenterIn the event this information is protected by the Federal Confidentiality of Alcohol and Drug Abuse Patient Records regulations: The Federal rules restrict any use of the information to criminally investigate or prosecute any alcohol or drug abuse patient.[facility] CenterIn the event this information is protected by the Federal Confidentiality of Alcohol and Drug Abuse Patient Records regulations: The Federal rules restrict any use of the information to criminally investigate or prosecute any alcohol or drug abuse patient.[facility] CenterIn the event this information is protected by the Federal Confidentiality of Alcohol and Drug Abuse Patient Records regulations: The Federal rules restrict any use of the information to criminally investigate or prosecute any alcohol or drug abuse patient.[facility] CenterIn the event this information is protected by the Federal Confidentiality of Alcohol and Drug Abuse Patient Records regulations: The Federal rules restrict any use of the information to criminally investigate or prosecute any alcohol or drug abuse patient.[facility] CenterIn the event this information is protected by the Federal Confidentiality of Alcohol and Drug Abuse Patient Records regulations: The Federal rules restrict any use of the information to criminally investigate or prosecute any alcohol or drug abuse patient.[facility] CenterIn the event this information is protected by the Federal Confidentiality of Alcohol and Drug Abuse Patient Records regulations: The Federal rules restrict any use of the information to criminally investigate or prosecute any alcohol or drug abuse patient.[facility] CenterIn the event this information is protected by the Federal Confidentiality of Alcohol and Drug Abuse Patient Records regulations: The Federal rules restrict any use of the information to criminally investigate or prosecute any alcohol or drug abuse patient.[facility] CenterIn the event this information is protected by the Federal Confidentiality of Alcohol and Drug Abuse Patient Records regulations: The Federal rules restrict any use of the information to criminally investigate or prosecute any alcohol or drug abuse patient.[facility] CenterIn the event this information is protected by the Federal Confidentiality of Alcohol and Drug Abuse Patient Records regulations: The Federal rules restrict any use of the information to criminally investigate or prosecute any alcohol or drug abuse patient.[facility] CenterIn the event this information is protected by the Federal Confidentiality of Alcohol and Drug Abuse Patient Records regulations: The Federal rules restrict any use of the information to criminally investigate or prosecute any alcohol or drug abuse patient.[facility] CenterIn the event this information is protected by the Federal Confidentiality of Alcohol and Drug Abuse Patient Records regulations: The Federal rules restrict any use of the information to criminally investigate or prosecute any alcohol or drug abuse patient.[facility] CenterIn the event this information is protected by the Federal Confidentiality of Alcohol and Drug Abuse Patient Records regulations: The Federal rules restrict any use of the information to criminally investigate or prosecute any alcohol or drug abuse patient.[facility] CenterIn the event this information is protected by the Federal Confidentiality of Alcohol and Drug Abuse Patient Records regulations: The Federal rules restrict any use of the information to criminally investigate or prosecute any alcohol or drug abuse patient.[facility] CenterIn the event this information is protected by the Federal Confidentiality of Alcohol and Drug Abuse Patient Records regulations: The Federal rules restrict any use of the information to criminally investigate or prosecute any alcohol or drug abuse patient.[facility] CenterIn the event this information is protected by the Federal Confidentiality of Alcohol and Drug Abuse Patient Records regulations: The Federal rules restrict any use of the information to criminally investigate or prosecute any alcohol or drug abuse patient.[facility] CenterIn the event this information is protected by the Federal Confidentiality of Alcohol and Drug Abuse Patient Records regulations: The Federal rules restrict any use of the information to criminally investigate or prosecute any alcohol or drug abuse patient.[facility] CenterIn the event this information is protected by the Federal Confidentiality of Alcohol and Drug Abuse Patient Records regulations: The Federal rules restrict any use of the information to criminally investigate or prosecute any alcohol or drug abuse patient.[facility] CenterIn the event this information is protected by the Federal Confidentiality of Alcohol and Drug Abuse Patient Records regulations: The Federal rules restrict any use of the information to criminally investigate or prosecute any alcohol or drug abuse patient.[facility] CenterIn the event this information is protected by the Federal Confidentiality of Alcohol and Drug Abuse Patient Records regulations: The Federal rules restrict any use of the information to criminally investigate or prosecute any alcohol or drug abuse patient.[facility] CenterIn the event this information is protected by the Federal Confidentiality of Alcohol and Drug Abuse Patient Records regulations: The Federal rules restrict any use of the information to criminally investigate or prosecute any alcohol or drug abuse patient.[facility]In the event this information is protected by the Federal Confidentiality of Alcohol and Drug Abuse Patient Records regulations: The Federal rules restrict any use of the information to criminally investigate or prosecute any alcohol or drug abuse patient.[facility]In the event this information is protected by the Federal Confidentiality of Alcohol and Drug Abuse Patient Records regulations: The Federal rules restrict any use of the information to criminally investigate or prosecute any alcohol or drug abuse patient.[facility]In the event this information is protected by the Federal Confidentiality of Alcohol and Drug Abuse Patient Records regulations: The Federal rules restrict any use of the information to criminally investigate or prosecute any alcohol or drug abuse patient.[facility] CenterIn the event this information is protected by the Federal Confidentiality of Alcohol and Drug Abuse Patient Records regulations: The Federal rules restrict any use of the information to criminally investigate or prosecute any alcohol or drug abuse patient.[facility] CenterIn the event this information is protected by the Federal Confidentiality of Alcohol and Drug Abuse Patient Records regulations: The Federal rules restrict any use of the information to criminally investigate or prosecute any alcohol or drug abuse patient.[facility] CenterIn the event this information is protected by the Federal Confidentiality of Alcohol and Drug Abuse Patient Records regulations: The Federal rules restrict any use of the information to criminally investigate or prosecute any alcohol or drug abuse patient.[facility] CenterIn the event this information is protected by the Federal Confidentiality of Alcohol and Drug Abuse Patient Records regulations: The Federal rules restrict any use of the information to criminally investigate or prosecute any alcohol or drug abuse patient.[facility] CenterIn the event this information is protected by the Federal Confidentiality of Alcohol and Drug Abuse Patient Records regulations: The Federal rules restrict any use of the information to criminally investigate or prosecute any alcohol or drug abuse patient.[facility] CenterIn the event this information is protected by the Federal Confidentiality of Alcohol and Drug Abuse Patient Records regulations: The Federal rules restrict any use of the information to criminally investigate or prosecute any alcohol or drug abuse patient.[facility]In the event this information is protected by the Federal Confidentiality of Alcohol and Drug Abuse Patient Records regulations: The Federal rules restrict any use of the information to criminally investigate or prosecute any alcohol or drug abuse patient.[facility] CenterIn the event this information is protected by the Federal Confidentiality of Alcohol and Drug Abuse Patient Records regulations: The Federal rules restrict any use of the information to criminally investigate or prosecute any alcohol or drug abuse patient.[facility]In the event this information is protected by the Federal Confidentiality of Alcohol and Drug Abuse Patient Records regulations: The Federal rules restrict any use of the information to criminally investigate or prosecute any alcohol or drug abuse patient.[facility]In the event this information is protected by the Federal Confidentiality of Alcohol and Drug Abuse Patient Records regulations: The Federal rules restrict any use of the information to criminally investigate or prosecute any alcohol or drug abuse patient.[facility] CenterIn the event this information is protected by the Federal Confidentiality of Alcohol and Drug Abuse Patient Records regulations: The Federal rules restrict any use of the information to criminally investigate or prosecute any alcohol or drug abuse patient.[facility] CenterIn the event this information is protected by the Federal Confidentiality of Alcohol and Drug Abuse Patient Records regulations: The Federal rules restrict any use of the information to criminally investigate or prosecute any alcohol or drug abuse patient.[facility]In the event this information is protected by the Federal Confidentiality of Alcohol and Drug Abuse Patient Records regulations: The Federal rules restrict any use of the information to criminally investigate or prosecute any alcohol or drug abuse patient.[facility]In the event this information is protected by the Federal Confidentiality of Alcohol and Drug Abuse Patient Records regulations: The Federal rules restrict any use of the information to criminally investigate or prosecute any alcohol or drug abuse patient.[facility]In the event this information is protected by the Federal Confidentiality of Alcohol and Drug Abuse Patient Records regulations: The Federal rules restrict any use of the information to criminally investigate or prosecute any alcohol or drug abuse patient.[facility]In the event this information is protected by the Federal Confidentiality of Alcohol and Drug Abuse Patient Records regulations: The Federal rules restrict any use of the information to criminally investigate or prosecute any alcohol or drug abuse patient.[facility]In the event this information is protected by the Federal Confidentiality of Alcohol and Drug Abuse Patient Records regulations: The Federal rules restrict any use of the information to criminally investigate or prosecute any alcohol or drug abuse patient.[facility]In the event this information is protected by the Federal Confidentiality of Alcohol and Drug Abuse Patient Records regulations: The Federal rules restrict any use of the information to criminally investigate or prosecute any alcohol or drug abuse patient.[facility]In the event this information is protected by the Federal Confidentiality of Alcohol and Drug Abuse Patient Records regulations: The Federal rules restrict any use of the information to criminally investigate or prosecute any alcohol or drug abuse patient.[facility]In the event this information is protected by the Federal Confidentiality of Alcohol and Drug Abuse Patient Records regulations: The Federal rules restrict any use of the information to criminally investigate or prosecute any alcohol or drug abuse patient.[facility]In the event this information is protected by the Federal Confidentiality of Alcohol and Drug Abuse Patient Records regulations: The Federal rules restrict any use of the information to criminally investigate or prosecute any alcohol or drug abuse patient.[facility]In the event this information is protected by the Federal Confidentiality of Alcohol and Drug Abuse Patient Records regulations: The Federal rules restrict any use of the information to criminally investigate or prosecute any alcohol or drug abuse patient.[facility]In the event this information is protected by the Federal Confidentiality of Alcohol and Drug Abuse Patient Records regulations: The Federal rules restrict any use of the information to criminally investigate or prosecute any alcohol or drug abuse patient.[facility]In the event this information is protected by the Federal Confidentiality of Alcohol and Drug Abuse Patient Records regulations: The Federal rules restrict any use of the information to criminally investigate or prosecute any alcohol or drug abuse patient.[facility]In the event this information is protected by the Federal Confidentiality of Alcohol and Drug Abuse Patient Records regulations: The Federal rules restrict any use of the information to criminally investigate or prosecute any alcohol or drug abuse patient.[facility]In the event this information is protected by the Federal Confidentiality of Alcohol and Drug Abuse Patient Records regulations: The Federal rules restrict any use of the information to criminally investigate or prosecute any alcohol or drug abuse patient.[facility]In the event this information is protected by the Federal Confidentiality of Alcohol and Drug Abuse Patient Records regulations: The Federal rules restrict any use of the information to criminally investigate or prosecute any alcohol or drug abuse patient.[facility]In the event this information is protected by the Federal Confidentiality of Alcohol and Drug Abuse Patient Records regulations: The Federal rules restrict any use of the information to criminally investigate or prosecute any alcohol or drug abuse patient.[facility]In the event this information is protected by the Federal Confidentiality of Alcohol and Drug Abuse Patient Records regulations: The Federal rules restrict any use of the information to criminally investigate or prosecute any alcohol or drug abuse patient.[facility]In the event this information is protected by the Federal Confidentiality of Alcohol and Drug Abuse Patient Records regulations: The Federal rules restrict any use of the information to criminally investigate or prosecute any alcohol or drug abuse patient.[facility]In the event this information is protected by the Federal Confidentiality of Alcohol and Drug Abuse Patient Records regulations: The Federal rules restrict any use of the information to criminally investigate or prosecute any alcohol or drug abuse patient.[facility]In the event this information is protected by the Federal Confidentiality of Alcohol and Drug Abuse Patient Records regulations: The Federal rules restrict any use of the information to criminally investigate or prosecute any alcohol or drug abuse patient.[facility]In the event this information is protected by the Federal Confidentiality of Alcohol and Drug Abuse Patient Records regulations: The Federal rules restrict any use of the information to criminally investigate or prosecute any alcohol or drug abuse patient.[facility]In the event this information is protected by the Federal Confidentiality of Alcohol and Drug Abuse Patient Records regulations: The Federal rules restrict any use of the information to criminally investigate or prosecute any alcohol or drug abuse patient.[facility]In the event this information is protected by the Federal Confidentiality of Alcohol and Drug Abuse Patient Records regulations: The Federal rules restrict any use of the information to criminally investigate or prosecute any alcohol or drug abuse patient.[facility]In the event this information is protected by the Federal Confidentiality of Alcohol and Drug Abuse Patient Records regulations: The Federal rules restrict any use of the information to criminally investigate or prosecute any alcohol or drug abuse patient.[facility]In the event this information is protected by the Federal Confidentiality of Alcohol and Drug Abuse Patient Records regulations: The Federal rules restrict any use of the information to criminally investigate or prosecute any alcohol or drug abuse patient.[facility]In the event this information is protected by the Federal Confidentiality of Alcohol and Drug Abuse Patient Records regulations: The Federal rules restrict any use of the information to criminally investigate or prosecute any alcohol or drug abuse patient.[facility]In the event this information is protected by the Federal Confidentiality of Alcohol and Drug Abuse Patient Records regulations: The Federal rules restrict any use of the information to criminally investigate or prosecute any alcohol or drug abuse patient.[facility] CenterIn the event this information is protected by the Federal Confidentiality of Alcohol and Drug Abuse Patient Records regulations: The Federal rules restrict any use of the information to criminally investigate or prosecute any alcohol or drug abuse patient.[facility] CenterIn the event this information is protected by the Federal Confidentiality of Alcohol and Drug Abuse Patient Records regulations: The Federal rules restrict any use of the information to criminally investigate or prosecute any alcohol or drug abuse patient.[facility] CenterIn the event this information is protected by the Federal Confidentiality of Alcohol and Drug Abuse Patient Records regulations: The Federal rules restrict any use of the information to criminally investigate or prosecute any alcohol or drug abuse patient.[facility] CenterIn the event this information is protected by the Federal Confidentiality of Alcohol and Drug Abuse Patient Records regulations: The Federal rules restrict any use of the information to criminally investigate or prosecute any alcohol or drug abuse patient.[facility] CenterIn the event this information is protected by the Federal Confidentiality of Alcohol and Drug Abuse Patient Records regulations: The Federal rules restrict any use of the information to criminally investigate or prosecute any alcohol or drug abuse patient.[facility] CenterIn the event this information is protected by the Federal Confidentiality of Alcohol and Drug Abuse Patient Records regulations: The Federal rules restrict any use of the information to criminally investigate or prosecute any alcohol or drug abuse patient.[facility] CenterIn the event this information is protected by the Federal Confidentiality of Alcohol and Drug Abuse Patient Records regulations: The Federal rules restrict any use of the information to criminally investigate or prosecute any alcohol or drug abuse patient.[facility] CenterIn the event this information is protected by the Federal Confidentiality of Alcohol and Drug Abuse Patient Records regulations: The Federal rules restrict any use of the information to criminally investigate or prosecute any alcohol or drug abuse patient.[facility] CenterIn the event this information is protected by the Federal Confidentiality of Alcohol and Drug Abuse Patient Records regulations: The Federal rules restrict any use of the information to criminally investigate or prosecute any alcohol or drug abuse patient.[facility] CenterIn the event this information is protected by the Federal Confidentiality of Alcohol and Drug Abuse Patient Records regulations: The Federal rules restrict any use of the information to criminally investigate or prosecute any alcohol or drug abuse patient.[facility] CenterIn the event this information is protected by the Federal Confidentiality of Alcohol and Drug Abuse Patient Records regulations: The Federal rules restrict any use of the information to criminally investigate or prosecute any alcohol or drug abuse patient.[facility] CenterIn the event this information is protected by the Federal Confidentiality of Alcohol and Drug Abuse Patient Records regulations: The Federal rules restrict any use of the information to criminally investigate or prosecute any alcohol or drug abuse patient.[facility] CenterIn the event this information is protected by the Federal Confidentiality of Alcohol and Drug Abuse Patient Records regulations: The Federal rules restrict any use of the information to criminally investigate or prosecute any alcohol or drug abuse patient.[facility] CenterIn the event this information is protected by the Federal Confidentiality of Alcohol and Drug Abuse Patient Records regulations: The Federal rules restrict any use of the information to criminally investigate or prosecute any alcohol or drug abuse patient.[facility] CenterIn the event this information is protected by the Federal Confidentiality of Alcohol and Drug Abuse Patient Records regulations: The Federal rules restrict any use of the information to criminally investigate or prosecute any alcohol or drug abuse patient.[facility] CenterIn the event this information is protected by the Federal Confidentiality of Alcohol and Drug Abuse Patient Records regulations: The Federal rules restrict any use of the information to criminally investigate or prosecute any alcohol or drug abuse patient.[facility] CenterIn the event this information is protected by the Federal Confidentiality of Alcohol and Drug Abuse Patient Records regulations: The Federal rules restrict any use of the information to criminally investigate or prosecute any alcohol or drug abuse patient.[facility] CenterIn the event this information is protected by the Federal Confidentiality of Alcohol and Drug Abuse Patient Records regulations: The Federal rules restrict any use of the information to criminally investigate or prosecute any alcohol or drug abuse patient.[facility] CenterIn the event this information is protected by the Federal Confidentiality of Alcohol and Drug Abuse Patient Records regulations: The Federal rules restrict any use of the information to criminally investigate or prosecute any alcohol or drug abuse patient.[facility] CenterIn the event this information is protected by the Federal Confidentiality of Alcohol and Drug Abuse Patient Records regulations: The Federal rules restrict any use of the information to criminally investigate or prosecute any alcohol or drug abuse patient.[facility] CenterIn the event this information is protected by the Federal Confidentiality of Alcohol and Drug Abuse Patient Records regulations: The Federal rules restrict any use of the information to criminally investigate or prosecute any alcohol or drug abuse patient.[facility] CenterIn the event this information is protected by the Federal Confidentiality of Alcohol and Drug Abuse Patient Records regulations: The Federal rules restrict any use of the information to criminally investigate or prosecute any alcohol or drug abuse patient.[facility] CenterIn the event this information is protected by the Federal Confidentiality of Alcohol and Drug Abuse Patient Records regulations: The Federal rules restrict any use of the information to criminally investigate or prosecute any alcohol or drug abuse patient.[facility] CenterIn the event this information is protected by the Federal Confidentiality of Alcohol and Drug Abuse Patient Records regulations: The Federal rules restrict any use of the information to criminally investigate or prosecute any alcohol or drug abuse patient.[facility] CenterIn the event this information is protected by the Federal Confidentiality of Alcohol and Drug Abuse Patient Records regulations: The Federal rules restrict any use of the information to criminally investigate or prosecute any alcohol or drug abuse patient.[facility] CenterIn the event this information is protected by the Federal Confidentiality of Alcohol and Drug Abuse Patient Records regulations: The Federal rules restrict any use of the information to criminally investigate or prosecute any alcohol or drug abuse patient.[facility] CenterIn the event this information is protected by the Federal Confidentiality of Alcohol and Drug Abuse Patient Records regulations: The Federal rules restrict any use of the information to criminally investigate or prosecute any alcohol or drug abuse patient.[facility] CenterIn the event this information is protected by the Federal Confidentiality of Alcohol and Drug Abuse Patient Records regulations: The Federal rules restrict any use of the information to criminally investigate or prosecute any alcohol or drug abuse patient.[facility] CenterIn the event this information is protected by the Federal Confidentiality of Alcohol and Drug Abuse Patient Records regulations: The Federal rules restrict any use of the information to criminally investigate or prosecute any alcohol or drug abuse patient.[facility]In the event this information is protected by the Federal Confidentiality of Alcohol and Drug Abuse Patient Records regulations: The Federal rules restrict any use of the information to criminally investigate or prosecute any alcohol or drug abuse patient.[facility] CenterIn the event this information is protected by the Federal Confidentiality of Alcohol and Drug Abuse Patient Records regulations: The Federal rules restrict any use of the information to criminally investigate or prosecute any alcohol or drug abuse patient.[facility] CenterIn the event this information is protected by the Federal Confidentiality of Alcohol and Drug Abuse Patient Records regulations: The Federal rules restrict any use of the information to criminally investigate or prosecute any alcohol or drug abuse patient.[facility] CenterIn the event this information is protected by the Federal Confidentiality of Alcohol and Drug Abuse Patient Records regulations: The Federal rules restrict any use of the information to criminally investigate or prosecute any alcohol or drug abuse patient.[facility]In the event this information is protected by the Federal Confidentiality of Alcohol and Drug Abuse Patient Records regulations: The Federal rules restrict any use of the information to criminally investigate or prosecute any alcohol or drug abuse patient.[facility]In the event this information is protected by the Federal Confidentiality of Alcohol and Drug Abuse Patient Records regulations: The Federal rules restrict any use of the information to criminally investigate or prosecute any alcohol or drug abuse patient.[facility]In the event this information is protected by the Federal Confidentiality of Alcohol and Drug Abuse Patient Records regulations: The Federal rules restrict any use of the information to criminally investigate or prosecute any alcohol or drug abuse patient.[facility]In the event this information is protected by the Federal Confidentiality of Alcohol and Drug Abuse Patient Records regulations: The Federal rules restrict any use of the information to criminally investigate or prosecute any alcohol or drug abuse patient.[facility]In the event this information is protected by the Federal Confidentiality of Alcohol and Drug Abuse Patient Records regulations: The Federal rules restrict any use of the information to criminally investigate or prosecute any alcohol or drug abuse patient.[facility]In the event this information is protected by the Federal Confidentiality of Alcohol and Drug Abuse Patient Records regulations: The Federal rules restrict any use of the information to criminally investigate or prosecute any alcohol or drug abuse patient.[facility]In the event this information is protected by the Federal Confidentiality of Alcohol and Drug Abuse Patient Records regulations: The Federal rules restrict any use of the information to criminally investigate or prosecute any alcohol or drug abuse patient.[facility]In the event this information is protected by the Federal Confidentiality of Alcohol and Drug Abuse Patient Records regulations: The Federal rules restrict any use of the information to criminally investigate or prosecute any alcohol or drug abuse patient.[facility]In the event this information is protected by the Federal Confidentiality of Alcohol and Drug Abuse Patient Records regulations: The Federal rules restrict any use of the information to criminally investigate or prosecute any alcohol or drug abuse patient.[facility]In the event this information is protected by the Federal Confidentiality of Alcohol and Drug Abuse Patient Records regulations: The Federal rules restrict any use of the information to criminally investigate or prosecute any alcohol or drug abuse patient.[facility]In the event this information is protected by the Federal Confidentiality of Alcohol and Drug Abuse Patient Records regulations: The Federal rules restrict any use of the information to criminally investigate or prosecute any alcohol or drug abuse patient.[facility]In the event this information is protected by the Federal Confidentiality of Alcohol and Drug Abuse Patient Records regulations: The Federal rules restrict any use of the information to criminally investigate or prosecute any alcohol or drug abuse patient.[facility]In the event this information is protected by the Federal Confidentiality of Alcohol and Drug Abuse Patient Records regulations: The Federal rules restrict any use of the information to criminally investigate or prosecute any alcohol or drug abuse patient.[facility]In the event this information is protected by the Federal Confidentiality of Alcohol and Drug Abuse Patient Records regulations: The Federal rules restrict any use of the information to criminally investigate or prosecute any alcohol or drug abuse patient.[facility]In the event this information is protected by the Federal Confidentiality of Alcohol and Drug Abuse Patient Records regulations: The Federal rules restrict any use of the information to criminally investigate or prosecute any alcohol or drug abuse patient.[facility]In the event this information is protected by the Federal Confidentiality of Alcohol and Drug Abuse Patient Records regulations: The Federal rules restrict any use of the information to criminally investigate or prosecute any alcohol or drug abuse patient.[facility]In the event this information is protected by the Federal Confidentiality of Alcohol and Drug Abuse Patient Records regulations: The Federal rules restrict any use of the information to criminally investigate or prosecute any alcohol or drug abuse patient.[facility]In the event this information is protected by the Federal Confidentiality of Alcohol and Drug Abuse Patient Records regulations: The Federal rules restrict any use of the information to criminally investigate or prosecute any alcohol or drug abuse patient.[facility]In the event this information is protected by the Federal Confidentiality of Alcohol and Drug Abuse Patient Records regulations: The Federal rules restrict any use of the information to criminally investigate or prosecute any alcohol or drug abuse patient.[facility]In the event this information is protected by the Federal Confidentiality of Alcohol and Drug Abuse Patient Records regulations: The Federal rules restrict any use of the information to criminally investigate or prosecute any alcohol or drug abuse patient.[facility]In the event this information is protected by the Federal Confidentiality of Alcohol and Drug Abuse Patient Records regulations: The Federal rules restrict any use of the information to criminally investigate or prosecute any alcohol or drug abuse patient.[facility]In the event this information is protected by the Federal Confidentiality of Alcohol and Drug Abuse Patient Records regulations: The Federal rules restrict any use of the information to criminally investigate or prosecute any alcohol or drug abuse patient.[facility]In the event this information is protected by the Federal Confidentiality of Alcohol and Drug Abuse Patient Records regulations: The Federal rules restrict any use of the information to criminally investigate or prosecute any alcohol or drug abuse patient.[facility]In the event this information is protected by the Federal Confidentiality of Alcohol and Drug Abuse Patient Records regulations: The Federal rules restrict any use of the information to criminally investigate or prosecute any alcohol or drug abuse patient.[facility]In the event this information is protected by the Federal Confidentiality of Alcohol and Drug Abuse Patient Records regulations: The Federal rules restrict any use of the information to criminally investigate or prosecute any alcohol or drug abuse patient.[facility]In the event this information is protected by the Federal Confidentiality of Alcohol and Drug Abuse Patient Records regulations: The Federal rules restrict any use of the information to criminally investigate or prosecute any alcohol or drug abuse patient.[facility]In the event this information is protected by the Federal Confidentiality of Alcohol and Drug Abuse Patient Records regulations: The Federal rules restrict any use of the information to criminally investigate or prosecute any alcohol or drug abuse patient.[facility]In the event this information is protected by the Federal Confidentiality of Alcohol and Drug Abuse Patient Records regulations: The Federal rules restrict any use of the information to criminally investigate or prosecute any alcohol or drug abuse patient.[facility]In the event this information is protected by the Federal Confidentiality of Alcohol and Drug Abuse Patient Records regulations: The Federal rules restrict any use of the information to criminally investigate or prosecute any alcohol or drug abuse patient.[facility]In the event this information is protected by the Federal Confidentiality of Alcohol and Drug Abuse Patient Records regulations: The Federal rules restrict any use of the information to criminally investigate or prosecute any alcohol or drug abuse patient.[facility]In the event this information is protected by the Federal Confidentiality of Alcohol and Drug Abuse Patient Records regulations: The Federal rules restrict any use of the information to criminally investigate or prosecute any alcohol or drug abuse patient.[facility]In the event this information is protected by the Federal Confidentiality of Alcohol and Drug Abuse Patient Records regulations: The Federal rules restrict any use of the information to criminally investigate or prosecute any alcohol or drug abuse patient.[facility]In the event this information is protected by the Federal Confidentiality of Alcohol and Drug Abuse Patient Records regulations: The Federal rules restrict any use of the information to criminally investigate or prosecute any alcohol or drug abuse patient.[facility]In the event this information is protected by the Federal Confidentiality of Alcohol and Drug Abuse Patient Records regulations: The Federal rules restrict any use of the information to criminally investigate or prosecute any alcohol or drug abuse patient.[facility]In the event this information is protected by the Federal Confidentiality of Alcohol and Drug Abuse Patient Records regulations: The Federal rules restrict any use of the information to criminally investigate or prosecute any alcohol or drug abuse patient.[facility]In the event this information is protected by the Federal Confidentiality of Alcohol and Drug Abuse Patient Records regulations: The Federal rules restrict any use of the information to criminally investigate or prosecute any alcohol or drug abuse patient.[facility]In the event this information is protected by the Federal Confidentiality of Alcohol and Drug Abuse Patient Records regulations: The Federal rules restrict any use of the information to criminally investigate or prosecute any alcohol or drug abuse patient.[facility]In the event this information is protected by the Federal Confidentiality of Alcohol and Drug Abuse Patient Records regulations: The Federal rules restrict any use of the information to criminally investigate or prosecute any alcohol or drug abuse patient.[facility]In the event this information is protected by the Federal Confidentiality of Alcohol and Drug Abuse Patient Records regulations: The Federal rules restrict any use of the information to criminally investigate or prosecute any alcohol or drug abuse patient.[facility]In the event this information is protected by the Federal Confidentiality of Alcohol and Drug Abuse Patient Records regulations: The Federal rules restrict any use of the information to criminally investigate or prosecute any alcohol or drug abuse patient.[facility]In the event this information is protected by the Federal Confidentiality of Alcohol and Drug Abuse Patient Records regulations: The Federal rules restrict any use of the information to criminally investigate or prosecute any alcohol or drug abuse patient.[facility]In the event this information is protected by the Federal Confidentiality of Alcohol and Drug Abuse Patient Records regulations: The Federal rules restrict any use of the information to criminally investigate or prosecute any alcohol or drug abuse patient.[facility]In the event this information is protected by the Federal Confidentiality of Alcohol and Drug Abuse Patient Records regulations: The Federal rules restrict any use of the information to criminally investigate or prosecute any alcohol or drug abuse patient.[facility]In the event this information is protected by the Federal Confidentiality of Alcohol and Drug Abuse Patient Records regulations: The Federal rules restrict any use of the information to criminally investigate or prosecute any alcohol or drug abuse patient.[facility]In the event this information is protected by the Federal Confidentiality of Alcohol and Drug Abuse Patient Records regulations: The Federal rules restrict any use of the information to criminally investigate or prosecute any alcohol or drug abuse patient.[facility]In the event this information is protected by the Federal Confidentiality of Alcohol and Drug Abuse Patient Records regulations: The Federal rules restrict any use of the information to criminally investigate or prosecute any alcohol or drug abuse patient.[facility]In the event this information is protected by the Federal Confidentiality of Alcohol and Drug Abuse Patient Records regulations: The Federal rules restrict any use of the information to criminally investigate or prosecute any alcohol or drug abuse patient.[facility]In the event this information is protected by the Federal Confidentiality of Alcohol and Drug Abuse Patient Records regulations: The Federal rules restrict any use of the information to criminally investigate or prosecute any alcohol or drug abuse patient.[facility]In the event this information is protected by the Federal Confidentiality of Alcohol and Drug Abuse Patient Records regulations: The Federal rules restrict any use of the information to criminally investigate or prosecute any alcohol or drug abuse patient.[facility]In the event this information is protected by the Federal Confidentiality of Alcohol and Drug Abuse Patient Records regulations: The Federal rules restrict any use of the information to criminally investigate or prosecute any alcohol or drug abuse patient.[facility]In the event this information is protected by the Federal Confidentiality of Alcohol and Drug Abuse Patient Records regulations: The Federal rules restrict any use of the information to criminally investigate or prosecute any alcohol or drug abuse patient.[facility]In the event this information is protected by the Federal Confidentiality of Alcohol and Drug Abuse Patient Records regulations: The Federal rules restrict any use of the information to criminally investigate or prosecute any alcohol or drug abuse patient.[facility]In the event this information is protected by the Federal Confidentiality of Alcohol and Drug Abuse Patient Records regulations: The Federal rules restrict any use of the information to criminally investigate or prosecute any alcohol or drug abuse patient.[facility] CenterIn the event this information is protected by the Federal Confidentiality of Alcohol and Drug Abuse Patient Records regulations: The Federal rules restrict any use of the information to criminally investigate or prosecute any alcohol or drug abuse patient.[facility] CenterIn the event this information is protected by the Federal Confidentiality of Alcohol and Drug Abuse Patient Records regulations: The Federal rules restrict any use of the information to criminally investigate or prosecute any alcohol or drug abuse patient.[facility] CenterIn the event this information is protected by the Federal Confidentiality of Alcohol and Drug Abuse Patient Records regulations: The Federal rules restrict any use of the information to criminally investigate or prosecute any alcohol or drug abuse patient.[facility] CenterIn the event this information is protected by the Federal Confidentiality of Alcohol and Drug Abuse Patient Records regulations: The Federal rules restrict any use of the information to criminally investigate or prosecute any alcohol or drug abuse patient.[facility] CenterIn the event this information is protected by the Federal Confidentiality of Alcohol and Drug Abuse Patient Records regulations: The Federal rules restrict any use of the information to criminally investigate or prosecute any alcohol or drug abuse patient.[facility] CenterIn the event this information is protected by the Federal Confidentiality of Alcohol and Drug Abuse Patient Records regulations: The Federal rules restrict any use of the information to criminally investigate or prosecute any alcohol or drug abuse patient.[facility] CenterIn the event this information is protected by the Federal Confidentiality of Alcohol and Drug Abuse Patient Records regulations: The Federal rules restrict any use of the information to criminally investigate or prosecute any alcohol or drug abuse patient.[facility] CenterIn the event this information is protected by the Federal Confidentiality of Alcohol and Drug Abuse Patient Records regulations: The Federal rules restrict any use of the information to criminally investigate or prosecute any alcohol or drug abuse patient.[facility] CenterIn the event this information is protected by the Federal Confidentiality of Alcohol and Drug Abuse Patient Records regulations: The Federal rules restrict any use of the information to criminally investigate or prosecute any alcohol or drug abuse patient.[facility] CenterIn the event this information is protected by the Federal Confidentiality of Alcohol and Drug Abuse Patient Records regulations: The Federal rules restrict any use of the information to criminally investigate or prosecute any alcohol or drug abuse patient.[facility] CenterIn the event this information is protected by the Federal Confidentiality of Alcohol and Drug Abuse Patient Records regulations: The Federal rules restrict any use of the information to criminally investigate or prosecute any alcohol or drug abuse patient.[facility] CenterIn the event this information is protected by the Federal Confidentiality of Alcohol and Drug Abuse Patient Records regulations: The Federal rules restrict any use of the information to criminally investigate or prosecute any alcohol or drug abuse patient.[facility] CenterIn the event this information is protected by the Federal Confidentiality of Alcohol and Drug Abuse Patient Records regulations: The Federal rules restrict any use of the information to criminally investigate or prosecute any alcohol or drug abuse patient.[facility] CenterIn the event this information is protected by the Federal Confidentiality of Alcohol and Drug Abuse Patient Records regulations: The Federal rules restrict any use of the information to criminally investigate or prosecute any alcohol or drug abuse patient.[facility] CenterIn the event this information is protected by the Federal Confidentiality of Alcohol and Drug Abuse Patient Records regulations: The Federal rules restrict any use of the information to criminally investigate or prosecute any alcohol or drug abuse patient.[facility] CenterIn the event this information is protected by the Federal Confidentiality of Alcohol and Drug Abuse Patient Records regulations: The Federal rules restrict any use of the information to criminally investigate or prosecute any alcohol or drug abuse patient.[facility] CenterIn the event this information is protected by the Federal Confidentiality of Alcohol and Drug Abuse Patient Records regulations: The Federal rules restrict any use of the information to criminally investigate or prosecute any alcohol or drug abuse patient.[facility] CenterIn the event this information is protected by the Federal Confidentiality of Alcohol and Drug Abuse Patient Records regulations: The Federal rules restrict any use of the information to criminally investigate or prosecute any alcohol or drug abuse patient.[facility] CenterIn the event this information is protected by the Federal Confidentiality of Alcohol and Drug Abuse Patient Records regulations: The Federal rules restrict any use of the information to criminally investigate or prosecute any alcohol or drug abuse patient.[facility] CenterIn the event this information is protected by the Federal Confidentiality of Alcohol and Drug Abuse Patient Records regulations: The Federal rules restrict any use of the information to criminally investigate or prosecute any alcohol or drug abuse patient.[facility] CenterIn the event this information is protected by the Federal Confidentiality of Alcohol and Drug Abuse Patient Records regulations: The Federal rules restrict any use of the information to criminally investigate or prosecute any alcohol or drug abuse patient.[facility] CenterIn the event this information is protected by the Federal Confidentiality of Alcohol and Drug Abuse Patient Records regulations: The Federal rules restrict any use of the information to criminally investigate or prosecute any alcohol or drug abuse patient.[facility] CenterIn the event this information is protected by the Federal Confidentiality of Alcohol and Drug Abuse Patient Records regulations: The Federal rules restrict any use of the information to criminally investigate or prosecute any alcohol or drug abuse patient.[facility] CenterIn the event this information is protected by the Federal Confidentiality of Alcohol and Drug Abuse Patient Records regulations: The Federal rules restrict any use of the information to criminally investigate or prosecute any alcohol or drug abuse patient.[facility] CenterIn the event this information is protected by the Federal Confidentiality of Alcohol and Drug Abuse Patient Records regulations: The Federal rules restrict any use of the information to criminally investigate or prosecute any alcohol or drug abuse patient.[facility] CenterIn the event this information is protected by the Federal Confidentiality of Alcohol and Drug Abuse Patient Records regulations: The Federal rules restrict any use of the information to criminally investigate or prosecute any alcohol or drug abuse patient.[facility] CenterIn the event this information is protected by the Federal Confidentiality of Alcohol and Drug Abuse Patient Records regulations: The Federal rules restrict any use of the information to criminally investigate or prosecute any alcohol or drug abuse patient.[facility] CenterIn the event this information is protected by the Federal Confidentiality of Alcohol and Drug Abuse Patient Records regulations: The Federal rules restrict any use of the information to criminally investigate or prosecute any alcohol or drug abuse patient.[facility] CenterIn the event this information is protected by the Federal Confidentiality of Alcohol and Drug Abuse Patient Records regulations: The Federal rules restrict any use of the information to criminally investigate or prosecute any alcohol or drug abuse patient.[facility] CenterIn the event this information is protected by the Federal Confidentiality of Alcohol and Drug Abuse Patient Records regulations: The Federal rules restrict any use of the information to criminally investigate or prosecute any alcohol or drug abuse patient.[facility] CenterIn the event this information is protected by the Federal Confidentiality of Alcohol and Drug Abuse Patient Records regulations: The Federal rules restrict any use of the information to criminally investigate or prosecute any alcohol or drug abuse patient.[facility] CenterIn the event this information is protected by the Federal Confidentiality of Alcohol and Drug Abuse Patient Records regulations: The Federal rules restrict any use of the information to criminally investigate or prosecute any alcohol or drug abuse patient.[facility] CenterIn the event this information is protected by the Federal Confidentiality of Alcohol and Drug Abuse Patient Records regulations: The Federal rules restrict any use of the information to criminally investigate or prosecute any alcohol or drug abuse patient.[facility] CenterIn the event this information is protected by the Federal Confidentiality of Alcohol and Drug Abuse Patient Records regulations: The Federal rules restrict any use of the information to criminally investigate or prosecute any alcohol or drug abuse patient.[facility] CenterIn the event this information is protected by the Federal Confidentiality of Alcohol and Drug Abuse Patient Records regulations: The Federal rules restrict any use of the information to criminally investigate or prosecute any alcohol or drug abuse patient.[facility] CenterIn the event this information is protected by the Federal Confidentiality of Alcohol and Drug Abuse Patient Records regulations: The Federal rules restrict any use of the information to criminally investigate or prosecute any alcohol or drug abuse patient.[facility] CenterIn the event this information is protected by the Federal Confidentiality of Alcohol and Drug Abuse Patient Records regulations: The Federal rules restrict any use of the information to criminally investigate or prosecute any alcohol or drug abuse patient.[facility] CenterIn the event this information is protected by the Federal Confidentiality of Alcohol and Drug Abuse Patient Records regulations: The Federal rules restrict any use of the information to criminally investigate or prosecute any alcohol or drug abuse patient.[facility] CenterIn the event this information is protected by the Federal Confidentiality of Alcohol and Drug Abuse Patient Records regulations: The Federal rules restrict any use of the information to criminally investigate or prosecute any alcohol or drug abuse patient.[facility] CenterIn the event this information is protected by the Federal Confidentiality of Alcohol and Drug Abuse Patient Records regulations: The Federal rules restrict any use of the information to criminally investigate or prosecute any alcohol or drug abuse patient.[facility] CenterIn the event this information is protected by the Federal Confidentiality of Alcohol and Drug Abuse Patient Records regulations: The Federal rules restrict any use of the information to criminally investigate or prosecute any alcohol or drug abuse patient.[facility] CenterIn the event this information is protected by the Federal Confidentiality of Alcohol and Drug Abuse Patient Records regulations: The Federal rules restrict any use of the information to criminally investigate or prosecute any alcohol or drug abuse patient.[facility] CenterIn the event this information is protected by the Federal Confidentiality of Alcohol and Drug Abuse Patient Records regulations: The Federal rules restrict any use of the information to criminally investigate or prosecute any alcohol or drug abuse patient.[facility] CenterIn the event this information is protected by the Federal Confidentiality of Alcohol and Drug Abuse Patient Records regulations: The Federal rules restrict any use of the information to criminally investigate or prosecute any alcohol or drug abuse patient.[facility] CenterIn the event this information is protected by the Federal Confidentiality of Alcohol and Drug Abuse Patient Records regulations: The Federal rules restrict any use of the information to criminally investigate or prosecute any alcohol or drug abuse patient.[facility] CenterIn the event this information is protected by the Federal Confidentiality of Alcohol and Drug Abuse Patient Records regulations: The Federal rules restrict any use of the information to criminally investigate or prosecute any alcohol or drug abuse patient.[facility] CenterIn the event this information is protected by the Federal Confidentiality of Alcohol and Drug Abuse Patient Records regulations: The Federal rules restrict any use of the information to criminally investigate or prosecute any alcohol or drug abuse patient.[facility] CenterIn the event this information is protected by the Federal Confidentiality of Alcohol and Drug Abuse Patient Records regulations: The Federal rules restrict any use of the information to criminally investigate or prosecute any alcohol or drug abuse patient.[facility] CenterIn the event this information is protected by the Federal Confidentiality of Alcohol and Drug Abuse Patient Records regulations: The Federal rules restrict any use of the information to criminally investigate or prosecute any alcohol or drug abuse patient.[facility] CenterIn the event this information is protected by the Federal Confidentiality of Alcohol and Drug Abuse Patient Records regulations: The Federal rules restrict any use of the information to criminally investigate or prosecute any alcohol or drug abuse patient.[facility] CenterIn the event this information is protected by the Federal Confidentiality of Alcohol and Drug Abuse Patient Records regulations: The Federal rules restrict any use of the information to criminally investigate or prosecute any alcohol or drug abuse patient.[facility] CenterIn the event this information is protected by the Federal Confidentiality of Alcohol and Drug Abuse Patient Records regulations: The Federal rules restrict any use of the information to criminally investigate or prosecute any alcohol or drug abuse patient.[facility] CenterIn the event this information is protected by the Federal Confidentiality of Alcohol and Drug Abuse Patient Records regulations: The Federal rules restrict any use of the information to criminally investigate or prosecute any alcohol or drug abuse patient.[facility] CenterIn the event this information is protected by the Federal Confidentiality of Alcohol and Drug Abuse Patient Records regulations: The Federal rules restrict any use of the information to criminally investigate or prosecute any alcohol or drug abuse patient.[facility] CenterIn the event this information is protected by the Federal Confidentiality of Alcohol and Drug Abuse Patient Records regulations: The Federal rules restrict any use of the information to criminally investigate or prosecute any alcohol or drug abuse patient.[facility] CenterIn the event this information is protected by the Federal Confidentiality of Alcohol and Drug Abuse Patient Records regulations: The Federal rules restrict any use of the information to criminally investigate or prosecute any alcohol or drug abuse patient.[facility] CenterIn the event this information is protected by the Federal Confidentiality of Alcohol and Drug Abuse Patient Records regulations: The Federal rules restrict any use of the information to criminally investigate or prosecute any alcohol or drug abuse patient.[facility] CenterIn the event this information is protected by the Federal Confidentiality of Alcohol and Drug Abuse Patient Records regulations: The Federal rules restrict any use of the information to criminally investigate or prosecute any alcohol or drug abuse patient.[facility] CenterIn the event this information is protected by the Federal Confidentiality of Alcohol and Drug Abuse Patient Records regulations: The Federal rules restrict any use of the information to criminally investigate or prosecute any alcohol or drug abuse patient.[facility] CenterIn the event this information is protected by the Federal Confidentiality of Alcohol and Drug Abuse Patient Records regulations: The Federal rules restrict any use of the information to criminally investigate or prosecute any alcohol or drug abuse patient.[facility] Reason for Visit (unrecogniz ed section and content) Reason Comments PT Discharge Specialty Diagnoses / Procedures Referred By Contac t Referred To Contact [facility] Diagnoses Cervical myofascial pain syndrome DDD (degenerative disc disease), cervical Procedures CONSULT TO PHYSICAL THERAPY PHYSICAL THERAPY EVALUATION HIGH COMPLEX 45 MINS Edgar Montejo MD [address] [facility] [place] [address] [facility] [address] [address] Referral ID Status Reason Start Date Expiration Date Visits Requested Visits Authorized [id number] Authorized Auto-Generat ed Referral 03/23/2023 03/22/2024 20 20 Reason Comments PT Progress Note Reason Comments Physical Therapy Specialty Diagnoses / Procedures Referred By Edyac t Referred To Contact [facility] Diagnoses Chronic left shoulder pain Procedures CONSULT TO PHYSICAL THERAPY PHYSICAL THERAPY EVALUATION HIGH COMPLEX 45 MINS Pedro Patricia, MARBLE WORKER.[facility] [address] [place] [address] [address] Referral ID Status Reason Start Date Expiration Date Visits Requested Visits Authorized [id number] Authorized Auto-Generat ed Referral 03/23/2022 03/22/2023 99 99 Reason Comments Refill Request Reason Comments Follow Up Reason Comments Patient Question Reason Comments Patient Update Reason Comments Appointment Reason Comments Appointment MEDICATIONS Reason Onset Date Comments Refill Request 10/17/2021 Reason Onset Date Comments Refill Request 12/06/2021 Reason Comments Radiology Mammogram Specialty Diagnoses / Procedures Referred By Edyac t Referred To Contact [facility] Diagnoses Encounter for gynecological examination (general) (routine) without abnormal findings Encounter for screening mammogram for breast cancer Procedures GIGI SCREENING W FARIDEH SCREENING BREAST DGTL FARIDEH UNI/BILAT ADD ON SCREENING MAMMOGRAPHY BI 2-VIEW BREAST INC Jing Araujo, MARBLE WORKER.[facility] [address] [place] [address] [facility] [address] [place] [id number] Referral ID Status Reason Start Date Expiration Date V isits Requested Visits Authorized Closed Auto-Generate d Referral 11/15/2020 12/15/2021 1 1 Reason Comments Radio Gen A21 Specialty Diagnoses / Procedures Referred By Contac t Referred To Contact [facility] Diagnoses Pain Procedures XR FOOT GENERAL 3V AP/LAT/OBL RIGHT RADEX FOOT COMPLETE MINIMUM 3 VIEWS Thalia Belcher PA-C [address] [place] [address] X[facility] Referral ID Status Reason Start Date Expiration Date V isits Requested Visits Authorized [id number] Closed Auto-Generate d Referral 12/19/2021 01/18/2023 1 1 Reason Comments Patient Question Bandages Reason Onset Date Comments Refill Request 01/19/2022 Reason Comments New Reason Comments ER F/U Nodules on lungs/kid brittany Reason Onset Date Comments Refill Request 02/04/2022 Reason Comments Established Patient Follow up on ulcer Reason Onset Date Comments Refill Request 03/05/2022 Reason Comments Letter Reason Comments ER F/U Pain Reason Onset Date Comments Refill Request 05/23/2022 Reason Onset Date Comments Refill Request 06/02/2022 Reason Comments PT Eval Specialty Diagnoses / Procedures Referred By Contac t Referred To Contact [facility] Diagnoses Chronic left shoulder pain Procedures CONSULT TO PHYSICAL THERAPY PHYSICAL THERAPY EVALUATION HIGH COMPLEX 45 MINS Pedro Patricia APRN.NUTRITION SERVICES WORKER [address] [place] [address] [facility] [address] [place] [address] Reason Onset Date Comments Refill Request 06/07/2022 Reason Comments Irregular Menstrual Cycle Reason Onset Date Comments Refill Request 06/22/2022 Reason Comments Pharmacy Question Reason Onset Date Comments Refill Request 07/03/2022 Reason Onset Date Comments Refill Request 07/05/2022 Reason Comments Consult colonoscopy Specialty Diagnoses / Procedures Referred By Contac t Referred To Contact General Surgery Diagnoses Family history of colon cancer in father Screening for colon cancer Procedures CONSULT TO GENERAL SURGERY OFFICE/OUTPATIENT NEW HIGH MDM 60-74 MINUTES Pedro Patricia APRN.[employer] SERVICES WORKER [address] [place] [address] Referral ID Status Reason Start Date Expiration Date V isits Requested Visits Authorized [id number] Closed PCP Requested Referral 07/15/2022 07/15/2023 1 1 Reason Onset Date Comments Refill Request 09/17/2022 Reason Comments F/U 3 Month Reason Comments Follow Up Review EGD and colon oscopy results. Reason Onset Date Comments Refill Request 10/18/2022 Reason Comments F/U 3 Month Reason Onset Date Comments IUD Removal 11/07/2022 Reason Comments Same Day Appointment X few week back marcela n radiating down into left leg Reason Comments New Swelling Pain Numbness Specialty Diagnoses / Procedures Referred By Margaret t Referred To Contact Podiatry Diagnoses DM (diabetes mellitus), type 2 with neurological complications (HCC) Procedures CONSULT TO PODIATRY OFFICE/OUTPATIENT NEW HIGH MDM 60-74 MINUTES Pedro Patricia APRN.[employer]ITION SERVICES WORKER [address] [place] [address] Referral ID Status Reason Start Date Expiration Date Visits Requested Visits Authorized [id number] Pending Review PCP Requested Referral 10/28/2022 10/28/2023 1 1 Reason Comments Medication Problem Reason Onset Date Comments Refill Request 11/24/2022 Reason Comments Med Change Request Reason Onset Date Comments Refill Request 12/02/2022 Reason Comments Established Patient Open blister with bl eeding ongoing a few days Reason Onset Date Comments Imm/Inj Immunizations 12/15/2022 Flu vaccination Reason Onset Date Comments Refill Request 12/20/2022 Reason Onset Date Comments Refill Request 01/09/2023 Reason Onset Date Comments Refill Request 01/14/2023 Reason Comments Established Patient Diabetic foot ulcer Follow Up Diabetic foot ulcer Reason Comments Radiology US Specialty Diagnoses / Procedures Referred By Margaret t Referred To Contact [facility] Diagnoses Suprapubic pain Procedures US PELVIS BLADDER US PELVIC NONOBSTETRIC IMAGE D[facility]TN LIMITED/F/U Pedro Patricia APRN.NUTRITION SERVICES WORKER [address] [place] [address] [place] [address] Referral ID Status Reason Start Date Expiration Date V isits Requested Visits Authorized [id number] Closed Auto-Generate d Referral 10/28/2022 11/27/2023 1 1 Reason Comments Recheck Reason Comments Established Patient Diabetic Foot Ulcer Reason Comments Medication Request Specialty Diagnoses / Procedures Referred By Contac t Referred To Contact [facility] Diagnoses Chronic right shoulder pain Procedures MRI SHOULDER WO IVCON RIGHT MRI ANY JT UPPER EXTREMITY W/O CONTRAST SANDIEL Pedro Patricia APRN.[employer] SERVICES WORKER [address] [place] [address] [place] [address] Referral ID Status Reason Start Date Expiration Date V isits Requested Visits Authorized [id number] Closed Auto-Generate d Referral 04/06/2023 05/05/2024 1 1 Reason Onset Date Comments Refill Request 05/01/2023 Reason Comments Numbness Reason Comments Ulcer Established Patient Follow Up Pain Reason Onset Date Comments Population Health Navigation Outreach 05/13/2023 [place] Annual Wellness Visit Reason Comments Follow Up Ulcer Reason Comments Neck Pain Specialty Diagnoses / Procedures Referred By Margaret ivey Referred To Contact Spine Opal Diagnoses Paresthesia Weakness Osteoarthritis of spine with radiculopathy, cervical region Procedures CONSULT TO [facility] OFFICE/OUTPATIENT [facility] 60 MINUTES Pedro Patricia APRN.NUTRITION SERVICES WORKER [address] [place] [address] Referral ID Status Reason Start Date Expiration Date V isits Requested Visits Authorized [id number] Closed PCP Requested Referral 05/05/2023 05/04/2024 1 1 Reason Comments PT Eval Patient Education Reason Comments New Trigger Finger Specialty Diagnoses / Procedures Referred By Margaret t Referred To Contact Orthopedics Diagnoses Trigger finger of right hand, unspecified finger Procedures CONSULT TO ORTHOPAEDICS OFFICE/OUTPATIENT [facility] MDM 60 MINUTES Pedro Patricia APRN.NUTRITION SERVICES WORKER [address] [place] [address] Referral ID Status Reason Start Date Expiration Date V isits Requested Visits Authorized [id number] Closed PCP Requested Referral 04/06/2023 04/05/2024 1 1 Reason Onset Date Comments Refill Request 06/06/2023 Reason Onset Date Comments Refill Request 06/06/2023 Reason Comments Insurance Authorization Reason Comments Imm/Inj Reason Comments Schedule Surgery Reason Onset Date Comments Allied Health Visit 06/23/2023 Medication A dherence Outreach Reason Onset Date Comments Allied Health Visit 06/30/2023 Medication A dherence Outreach Reason Comments Medicare Wellness Exam Reason Comments Established Patient Follow Up Callous Reason Comments Post Op Trigger Finger Reason Comments Established Patient Follow Up Pain Diabetic Foot Check Reason Comments Post Op 6 weeks 4 days post op Right 3rd and 4th trigger finger releases Reason Onset Date Comments Allied Health Visit 08/24/2023 Medication A dherence Outreach Reason Onset Date Comments Refill Request 08/30/2023 Reason Comments Pain left leg and numbnes s Reason Comments Results Reason Onset Date Comments EMG 10/16/2023 Specialty Diagnoses / Procedures Referred By Contac t Referred To [facility] Diagnoses Bilateral hand numbness Procedures EMG(NEURO/NI) NERVE CONDUCTION STUDIES 9-10 STUDIES Riddhi Rivera PA-C [address] [place] [address] Neurological Opal [address] [place] [address] Referral ID Status Reason Start Date Expiration Date V isits Requested Visits Authorized [id number] Closed Auto-Generate d Referral 09/18/2023 03/22/2024 1 1 Reason Onset Date Comments Refill Request 10/20/2023 Reason Onset Date Comments Refill Request 10/30/2023 Reason Comments Established Patient Results Reason Comments Pain Reason Comments Pre-Op Exam Reason Onset Date Comments Refill Request 11/16/2023 Reason Comments Recheck Reason Comments Problem visit Pt reported burning with urination, x2mths. Reason Comments Established Patient Diabetic Foot Care Reason Onset Date Comments Refill Request 12/01/2023 Reason Comments Arm swelling Reason Comments PSG Check In Specialty Diagnoses / Procedures Referred By Contac t Referred To Contact MR IMAGING Diagnoses Spinal stenosis of cervical region Osteoarthritis of spine with radiculopathy, cervical region Procedures MRI CERVICAL SPINE WO IVCON MRI SPINAL CANAL CERVICAL W/O CONTRAST Serenity Hemphill, MARBLE WORKER.NUTRITION SERVICES WORKER [address] [place] [address] [place] [address] Referral ID Status Reason Start Date Expiration Date V isits Requested Visits Authorized [id number] Closed Auto-Generate d Referral 11/05/2023 12/04/2024 1 1 Reason Comments Results Cervical MRI Reason Comments handicap placard Reason Comments Established Patient Post Op Reason Onset Date Comments Allied Health Visit 01/07/2024 Medication A dherence Outreach Reason Comments Established Patient Diabetic Foot Care Foot Deformity Callous Diabetic Foot Ulcer Reason Onset Date Comments Refill Request 01/25/2024 Reason Comments Post Op 5 weeks 3 days post op Right ulnar nerve decompression Reason Comments Ear Pain as well as headache and neck pain Reason Comments Recheck 3 months Reason Comments Menstrual Problem Reason Comments Radiology US Specialty Diagnoses / Procedures Referred By Margaret ivey Referred To Contact US IMAGING Diagnoses Menorrhagia with irregular cycle Procedures US FEMALE PELVIS TRANSVAG US TRANSVAGINAL Jing Virgen APRN.JUAN [address] [place] [address] [place] [id number] Referral ID Status Reason Start Date Expiration Date V isits Requested Visits Authorized [id number] Closed Auto-Generate d Referral 03/21/2024 04/20/2025 1 1 Reason Comments Endometrial Biopsy Specialty Diagnoses / Procedures Referred By Margaret ivey Referred To Contact [facility] Diagnoses Menorrhagia with irregular cycle Procedures ENDOMETRIAL BIOPSY ENDOMETRIAL BX W/WO ENDOCERVIX BX W/O DILAT SPX Jing Virgen APRN.Ibis [address] [place] [address] [facility] [address] [place] [address] Referral ID Status Reason Start Date Expiration Date V isits Requested Visits Authorized [id number] Closed Auto-Generate d Referral 03/21/2024 03/21/2025 1 1 Reason Comments Menstrual Problem Reason Comments Established Patient Follow Up Diabetic Foot Care Reason Comments EKG Reason Comments Post Op Reason Comments Established Patient Follow Up Diabetic Foot Care Established Patient Callous vs wart Follow Up Callous vs wart Diabetic Foot Care Callous vs wart Callous Callous vs wart Wart Callous vs wart Reason Onset Date Comments Refill Request 05/10/2024 Reason Comments Orders Reason Onset Date Comments Refill Request 06/25/2024 Reason Comments F/U 3 Month Sprained left leg on cruise, right wrist brake Reason Comments Established Patient Follow Up Diabetic Foot Care Ankle Pain Established Patient Callous Follow Up Callous Diabetic Foot Care Callous Callous Callous Diabetic Foot Ulcer Callous Reason Comments Established Patient Follow Up Diabetic Foot Care Established Patient Callous vs wound Follow Up Callous vs wound Diabetic Foot Care Callous vs wound Callous Callous vs wound Diabetic Foot Ulcer Callous vs wound Reason Comments UTI with frequent urinat ion pressure and lower abdominal pain denies burning. Derm Problem spots on face abdominal cramping off and on Reason Comments Hospital Follow Up Reason Onset Date Comments Refill Request 11/11/2024 Reason Comments Follow Up Diabetic Foot Ulcer New Reason Comments Follow Up Diabetic Foot Ulcer Established Patient Reason Comments Established Patient Follow Up Diabetic Foot Ulcer Reason Comments Established Patient Follow Up Diabetic Foot Ulcer Care Team (unrecognized sect ion and content) Care Team Personnel Name: Sheldon, Clinical Laboratory Service Teacher Jannet PT Position: P3 Scheduling - Breast Puller Advanced Member Role: Other Name: LULU LUCIANO MD Member Role: Primary Care Physician Address: Address: [address] [place] [address] Name: STELLA PETERS DO Position: ED Physician Member Role: Attending Physician Address: Address: [address] [place] [address] Care Team Related Persons Name: BONNIE MENDIETA Name: BONNIE MENDIETA Name: BONNEI MENDIETA Name: BONNIE MENDIETA Name: BONNIE MENDIETA Name: BONNIE MENDIETA Name: ANTONI PEREZ Care Team Personnel Name: River Chung Clerk Jannet PT Position: P3 Scheduling - Breast Puller Advanced Member Role: Other Name: LULU LUCIANO MD Member Role: Primary Care Physician Address: Address: [facility] [address] Name: TOYIN Acosta Position: ED RN Member Role: ED RN Name: LUX HODGE MD Position: ED Physician Member Role: Attending Physician Address: Address: [facility] [address] [place] [address] Care Team Related Persons Name: BONNIE MENDIETA Name: BONNIE MENDIETA Name: BONNIE MENDIETA Name: BONNIE MENDIETA Name: BONNIE MENDIETA Name: BONNIE MENDIETA Name: ANTONI PEREZ Care Team Personnel Name: River Chung Clerk Jannet PT Position: P3 Scheduling - Breast Puller Advanced Member Role: Other Name: LULU LUCIANO MD Member Role: Primary Care Physician Address: Address: [address] [place] [address] Name: RHONDA ESQUIVEL MD Position: ED Physician Member Role: ED Physician Address: Address: [facility] [address] [place] [address] Name: TOYIN Buchanan Position: AO RN Member Role: ED RN Care Team Related Persons Name: ANAM BONNIE Name: ANAM, BONNIE Name: ANAM, BONNIE Name: ANAM, BONNIE Name: ANAM, BONNIE Name: ANAM, BONNIE Name: GOLD PEREZTTE Care Team Personnel Name: Sheldon, Clinical Laboratory Service Teacher Jannet PT Position: P3 Scheduling - Breast Puller Advanced Member Role: Other Name: LULU LUCIANO MD Member Role: Primary Care Physician Address: Address: [address] [place] [address] Care Team Related Persons Name: BONNIE MENDIETA Name: ANAM, BONNIE Name: ANAM, BONNIE Name: ANAM, BONNIE Name: ANAM, BONNIE Name: BONNIE MENDIETA Name: ANTONI PEREZ Care Team Personnel Name: Sheldon, Clinical Laboratory Service Teacher Jannet PT Position: P3 Scheduling - Breast Puller Advanced Member Role: Other Name: LULU LUCIANO MD Member Role: Primary Care Physician Address: Address: [address] Name: ROC VALENTINE DO Position: ED Physician Member Role: ED Physician Address: Address: [address] [place] [address] Care Team Related Persons Name: BONNIE MENDIETA Name: BONNIE MENDIETA Name: BONNIE MENDIETA Name: BONNIE MENDIETA Name: BONNIE MENDIETA Name: BONNIE MENDIETA Name: ANTONI PEREZ Name: GOLD PEREZTTE Care Team Personnel Name: Sheldon, Clinical Laboratory Service Teacher Jannet PT Position: P3 Scheduling - Breast Puller Advanced Member Role: Other Name: LLUU LUCIANO MD Member Role: Primary Care Physician Address: Address: [address] Name: TOYIN Acosta Position: AO RN Member Role: ED RN Name: ROC VALENTINE DO Position: ED Physician Member Role: ED Physician Address: Address: [address] [place] [address] Care Team Related Persons Name: BONNIE MENDEITA Name: BONNIE MENDIETA Name: ANAM, BONNIE Name: BONNIE MENDIETA Name: BONNIE MENDIETA Name: BONNIE MENDIETA Name: ANTONI PEREZ Name: ANTONI PEREZ Goals (unrecognized section and content) Goals may be documented in a n alternate section Inactive Administered Medications - up to 3 most recent administrations Administered Medications (un recognized section and content) Medication Order MAR Action Action Date Dose Rate Site betamethasone acetate-betamethasone sodium phosphate 3 mg injection (CELESTONE) 3 mg, Injection - FOR ORTHO USE ONLY, ONCE, 1 dose, Starting on 06/08/23 at 1524, Until 06/08/23 at 1524 Given 06/08/2023 3:24 PM EDT 3 mg Hand, Right lidocaine (PF) 10 mg/mL (1 %) 0.5 mL injection (XYLOCAINE) 0.5 mL, Injection - FOR ORTHO USE ONLY, ONCE, 1 dose, Starting on 06/08/23 at 1524, Until 06/08/23 at 1524 Given 06/08/2023 3:24 PM EDT 0.[address], Right FOR RECORDS PERTAINING TO PATIENTS WHO ARE OR HAVE BEEN ENROLLED IN A CHEMICAL DEPENDENCY/SUBSTANCEABUSE PROGRAM, SOME INFORMATION MAY BE OMITTED. This clinical summary was aggregated from multiple sources. Caution should be exercised in using it in the provision of clinical care. This summary normalizes information from multiple sources, and as a consequence, information in this document may materially change the coding, format and clinical context of patient data. In addition, data may be omitted in some cases. CLINICAL DECISIONS SHOULD BE BASED ON THE PRIMARY CLINICAL RECORDS. [employer] [facility] provides no warranty or guarantee of the accuracy or completeness of information in this document.
--- NOTE | 2025-02-25 17:41 | ED.VIS.LOWEX ---
HPI History of Present Illness Chief Complaint: Lower Extremity Injury Narrative Narrative: Chief complaint and HPI: 54-year-old female with past medical history of right Charcot foot presents for evaluation of right ankle pain. Patient states she had a wound on her foot that was not healing. States she was referred to a another physician in [place] in which she was placed in a 3-month cast. Wound healed and patient was just placed in a boot. Patient states yesterday evening she stepped out of her boot to get into her bed when she developed pain in her left ankle. Triage note states foot however she denies this to me and points to her ankle. Pain has continued today which is why she presents. She denies any injury elsewhere. Review of systems: See HPI Medications: As listed on the chart Allergies: As listed on the chart PFSH: Per chart Vital signs: As listed on the chart. Reviewed. Physical exam: Gen: Alert, NAD CV: Regular rate Resp: Nonlabored respirations Musc: Full range of motion of the right lower extremity including the foot and ankle, patient has mild tenderness to palpation along the lateral malleolus-no obvious swelling or ecchymosis, chronic deformity to the right foot given her Charcot foot, DP/PT pulses +2 bilaterally, good capillary refill, compartments soft, Achilles intact without tenderness, calcaneus nontender along with foot, no wounds, dry skin Psych: Cooperative, appropriate mood and affect [facility] Medical History Distal radius fracture, right Wears glasses Depression Anxiety Diabetes Bladder disease Arthritis Low iron High cholesterol Easy bruising Back pain TIA (transient ischemic attack) Vertigo Restless legs Dietary restriction History of IBS Gastric reflux Shortness of breath on exertion CPAP (continuous positive airway pressure) dependence Non-smoker Leg cramps History of pain when walking History of stress test Contusion of left shoulder Left shoulder strain Callus of toe Foot deformity Neuropathy of both feet Home Medications ?Medication ?Instructions ?Recorded ?Last Taken ?Type duloxetine 60 mg capsule,delayed 120 mg PO DAILY 01/10/15 05/25/24 History release gabapentin 800 mg tablet 800 mg PO TID NEUROPATHY 07/24/22 05/25/24 History iron 50 mg iron tablet 1 tab PO DAILY 07/24/22 05/25/24 History magnesium 250 mg tablet 250 mg PO DAILY 07/24/22 05/25/24 History calcium 500 mg (as 1 tab PO DAILY 04/06/24 05/25/24 History carbonate)-vitamin D3 3.125 mcg (125 unit) tablet fluticasone propionate 50 2 spray intranasal DAILY 04/06/24 05/25/24 History mcg/actuation nasal spray,suspension omeprazole 40 mg capsule,delayed 40 mg PO DAILY 04/06/24 05/25/24 History release semaglutide 2 mg/dose (8 mg/3 mL) 2 mg subcut CERDA 04/06/24 05/15/24 History subcutaneous pen injector (Ozempic) ipratropium bromide 21 mcg (0.03 2 spray intranasal BID-TID PRN 01/27/25 Unknown Rx %) nasal spray postnasal drainage #30 mL aspirin 81 mg tablet,delayed 81 mg PO DAILY 02/25/25 Unknown History release difluprednate 0.05 % eye drops 1 drp RIGHT EYE BID 02/25/25 Unknown History meloxicam 15 mg tablet 15 mg PO 02/25/25 Unknown History prednisolone acetate 1 % eye drp ophthalmic (eye) 02/25/25 Unknown History drops,suspension rosuvastatin 5 mg tablet 5 mg PO 02/25/25 Unknown History solifenacin 5 mg tablet 5 mg PO 02/25/25 Unknown History Allergy/AdvReac Type Severity Reaction Status Date / Time Sulfa (Sulfonamide Allergy Severe Hives Verified 02/25/25 17:32 Antibiotics) Surgical History History of hysterectomy (04/15/24) History of esophagogastroduodenoscopy (EGD) Hx of colonoscopy Hx laparoscopic cholecystectomy History of Hx of toe surgery Hx of foot surgery Hx of toe surgery Hx of sinus surgery Hx of elbow surgery Social History Smoking Status: Never smoker EXAM Physical Exam Const Vital Signs: 02/25/25 17:21 Temperature 97.2 F L Temperature Source Temporal Pulse Rate 90 Respiratory Rate 16 Blood Pressure 139/95 H Blood Pressure Mean 109 Pulse Ox 98 Oxygen Delivery Method Room Air MDM MDM MDM Narrative Medical decision making narrative: 54-year-old female with past medical history of right Charcot foot presents for evaluation of right ankle pain. Patient states she had a wound on her foot that was not healing. States she was referred to a another physician in [place] in which she was placed in a 3-month cast. Wound healed and patient was just placed in a boot. Patient states yesterday evening she stepped out of her boot to get into her bed when she developed pain in her left ankle. Triage note states foot however she denies this to me. Differential diagnosis includes but is not limited to ankle sprain versus fracture. Geff given for pain. X-ray of the ankle will be obtained. X-ray of the ankle was personally viewed interpreted by me, ED physician. Hardware appears intact. No fracture or dislocation. Chronic changes of the foot. Coagulation panel unremarkable. Radiology in agreement. At this point in time, no clear etiology for patient's ankle pain. Suspect a sprain. She is already supposed to wear a boot. Recommended her following up with orthopedic physician and primary care physician. Tylenol and Motrin as needed for pain. RICE education given. Patient stable to discharge home. Impression: 1. Right ankle sprain 2. Right Charcot foot Radiography Diagnostic Testing: Clinical Impression(s) from Imaging Studies Ankle X-Ray 02/25/25 17:27 IMPRESSION: As above. Reading Location: [address] Discharge Plan Triage Chief Complaint: Lower Extremity Injury ED Provider: Mendoza Johns Dx/Rx/DC Orders Clinical Impression: Right ankle sprain Instructions: ED Ankle Sprain (Adult) Prescriptions: No Action ipratropium bromide 21 mcg (0.03 %) spray,non-aerosol 2 spray intranasal BID-TID PRN (Reason: postnasal drainage) Qty: 30 0RF Rx Instructions: administer into each nostril duloxetine 60 MG capsule,delayed release(DR/EC) 120 mg PO DAILY gabapentin 800 mg Tablet 800 mg PO TID iron 50 mg iron Tablet 1 tab PO DAILY magnesium 250 mg Tablet 250 mg PO DAILY calcium carbonate-vitamin D3 500 mg-3.125 mcg (125 unit) tablet 1 tab PO DAILY Ozempic 2 mg/dose (8 mg/3 mL) pen injector 2 mg subcut CERDA omeprazole 40 mg capsule,delayed release(DR/EC) 40 mg PO DAILY fluticasone propionate 50 mcg/actuation spray,suspension 2 spray INTRANASAL DAILY aspirin 81 mg tablet,delayed release (DR/EC) 81 mg PO DAILY meloxicam 15 mg tablet 15 mg PO prednisolone acetate 1 % drops,suspension ophthalmic (eye) rosuvastatin 5 mg tablet 5 mg PO solifenacin 5 mg tablet 5 mg PO difluprednate 0.05 % drops 1 drp RIGHT EYE BID Primary Care Provider: Flora Thrasher Referrals: Flora Thrasher MD [Primary Care Provider, Internal Medicine] - 3-5 Days Activity Restrictions/Additional Instructions: Follow-up with your orthopedic physician as well as primary care physician. Wear your boot as prescribed. Tylenol and Motrin as needed for pain. Rest. Elevation and ice for swelling if it develops. Return back to ED symptoms change or worsen. Print Language: Danish Disposition Disposition: Home, Self Care
[2025-02-25] MEDS: HYDROcodone Bitartrate/Apap 5/325 Tablet PO (17:58)
[2025-02-25 19:19] VITALS: BP 139/95; PULSE 90; RESP 16; TEMP 36.2; O2SAT 98
== END 2025-02-25 19:20 | disposition home or self-care (01) ==
PROVIDERS: Emergency Provider Surgery; PCP Internal Medicine; Visit Provider Surgery
DX: S93.401A Sprain of unspecified ligament of right ankle, initial encounter (principal); E11.40 Type 2 diabetes mellitus with diabetic neuropathy, unspecified; E11.610 Type 2 diabetes mellitus with diabetic neuropathic arthropathy; E78.00 Pure hypercholesterolemia, unspecified; Z90.49 Acquired absence of other specified parts of digestive tract; Z86.73 Personal history of transient ischemic attack (TIA), and 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 residual deficits; W22.8XXA Striking against or struck by other objects, initial encounter
CPT/HCPCS: 73610; 99282

== ENCOUNTER → 2025-03-09 | Outpatient (CLI) | payer MEDICARE, MEDICAID, SELFPAY ==
--- NOTE | 2025-03-09 16:12 | VDLE_ITS ---
Reason For Study Reason For Study: RLE Swelling RIGHT LEFT GSV is normal. CFV is compressible, spontaneous, phasic, competent, CFV is compressible, spontaneous, phasic, competent and demonstrates normal augmentation. and demonstrates normal augmentation. POP V is compressible, spontaneous, phasic, competent FV is compressible, spontaneous, phasic, competent and demonstrates normal augmentation. and demonstrates normal augmentation. POP V is compressible, spontaneous, phasic, competent and demonstrates normal augmentation. T/P Trunk is compressible. PTV is compressible. RT PerV is compressible. Procedure This is a venous duplex using B-mode, color flow and spectral Doppler. Exam performed in department. The exam was diagnostic. A preliminary report was called and/or faxed to [facility]. VL/Venous Duplex US, Unilateral Interpretation Summary Deep veins of the right lower extremity are patent and compressible segmentally . There is no evidence of right lower extremity deep vein thrombosis. The right great saphenous vein appears patent a nd compressible segmentally. Ordering Physician: Claudia Chandler Referring Physician: Flora Thrasher Performed By: Dutch Zamora RVT
== END | disposition home or self-care (01) ==
LOC: CVS 16:10
PROVIDERS: PCP Internal Medicine
DX: R22.42 Localized swelling, mass and lump, left lower limb (principal)
CPT/HCPCS: 93971